=== PATIENT | female | born 1965 | race Caucasian/White ===

== ENCOUNTER → 2018-06-10 13:30 | Outpatient (CLI) | payer BC, MEDICARE, MEDICAID, SELFPAY ==
[2015-10-09 11:38] VITALS: BMI 41.2
[2018-06-10 14:41] LABS: Hematocrit 41.6 % (37-47); Mean Corp Hgb Conc 33.7 g/gl (32-36); Mean Corpuscular Hgb 29.9 pg (27.0-32.0); Mean Corpuscular Volume 88.7 fL (81-99); Mean Platelet Vol. 11.5 fl (6.2-12.0); Platelet Count 286 K/mm3 (150-450); RBC Distribution Width CV 13.3 % (11.6-14.6); RBC Distribution Width SD 42.5 fl (35.1-43.9); Red Blood Count 4.69 M/mm3 (4.2-5.4); White Blood Count 7.2 K/mm3 (4.4-11.0)
[2018-06-10 14:43] LABS: Scan Indicated on CBC? Y/N NO
[2018-06-10 15:11] LABS: Vitamin B12 671 pg/mL (211-911)
[2018-06-10 15:44] LABS: ALB/GLOB Ratio 1.1 RATIO (0.9-2.4); AST(SGOT) 40 U/L (15-37); Alanine Aminotransfer ALT/SGPT 53 U/L (13-56); Alkaline Phosphatase 98 U/L (45-117); Anion Gap 8 (5-15); BUN 10 mg/dL (7-18); BUN/Creat Ratio 21.1 RATIO (10-20); Chloride 107 mmol/L (98-107); Creatinine, Serum 0.47 mg/dL (0.55-1.02); EST Glomerular Filtration Rate 146 mL/min (>60); Est Glom Filt Rate - Afr Amer 176 mL/min (>60); Ferritin 240 ng/mL (8-252); Globulin 3.7 g/dL (2.2-4.2); Glucose 75 mg/dL (74-106); Iron 102 ug/dL (50-170); Magnesium 2.1 mg/dL (1.6-2.6); Potassium 3.8 mmol/L (3.5-5.1); Protein, Total 7.7 g/dL (6.4-8.2); Sodium Level 140 mmol/L (136-145)
[2018-06-13 10:56] LABS: Zinc, Plasma or Serum 84 ug/dL (56-134)
== END ==
PROVIDERS: Referring Provider Surgery; Visit Provider Surgery
DX: E11.9 Type 2 diabetes mellitus without complications (principal); I10 Essential (primary) hypertension; E78.2 Mixed hyperlipidemia; K90.9 Intestinal malabsorption, unspecified; E61.7 Deficiency of multiple nutrient elements; R53.83 Other fatigue; E66.01 Morbid (severe) obesity due to excess calories
CPT/HCPCS: 36415; 80053; 82607; 82728; 82746; 83540; 83735; 84630; 85027

== ENCOUNTER 2024-05-20 15:06 | Emergency (ER) | payer MEDICARE, OTHER, MEDICAID, SELFPAY ==
[2024-05-20 15:07] VITALS: BP 133/70; PULSE 53; RESP 14; TEMP 35.6; O2SAT 98; BMI 32.1
--- NOTE | 2024-05-20 15:48 | EDS_ITS ---
HPI History of Present Illness Chief Complaint: Nausea/Vomiting Detail of Chief Complaint: Abdominal pain lateral aspect of lower horizontal incision with bulging & N Informant: patient Onset/Context/Timing Onset: Weeks (If not months) Context: - (Intermittent nausea and vomiting, bulging for some time and intermittent pain) Timing: - (Previously documented) Quality: Severe pain Location: Lateral aspect of horizontal incision for gastric bariatric surgery Current Severity: Mild Maximum Severity: Severe Worsened by: Anytime when she eats. Also when she has nausea and vomiting Relieved by: Nothing Associated Symptoms Associated Symptoms: No constipation. Patient is still flagellated. Narrative Narrative: Patient is a 59-year-old female. She has history of type 2 diabetes, she is on metformin. She has had multiple abdominal surgeries. She has had repair for multiple hernias. She reports vomiting twice yesterday and twice today. She denies coffee-ground emesis or hematemesis. Her last normal bowel movement was yesterday. She is still flagellated. She has had this bulge for some time. Her doctors is even aware of it. She denies black or maroon-colored stool. She denies dysuria, frequency, urgency or hematuria. She denies blurred vision. She denies thirst or dry mouth. Denies orthostatic symptoms. As I was walking out of the room after my H&P she informed me again that the pain is severe. Prior similar symptoms: Yes Recent Illness/Hospitalization: No PFSH PFSH Home Medications ?Medication ?Instructions ?Recorded ?Last Taken ?Type metformin 1,000 mg 24 hr 1,000 mg PO DAILY 10/08/15 0 10/08/15 History tablet,extended release (gastric reten.) Allergy/AdvReac Type Severity Reaction Status Date / Time diphenhydramine (From Allergy Anaphylaxis Verified 05/20/24 15:06 Benadryl) morphine Allergy Anaphylaxis Verified 05/20/24 15:06 vancomycin Allergy Anaphylaxis Verified 05/20/24 15:06 Social History (Updated 05/20/24 @ 15:[address] Kvng Pelaez MD) household members: none Smoking Status: Never smoker ROS ROS ED Constitutional Constitutional ED: Denies chills, fever(s), subjective, sweats or weight loss Eyes Eyes: Denies blurry vision or change in vision Cardiovascular Cardiovascular: Denies chest pain or palpitations Respiratory/Chest Respiratory/Chest: Denies cough, dyspnea or dyspnea on exertion Gastrointestinal Gastrointestinal: Reports abdominal pain, nausea and vomiting; Denies constipation, diarrhea or melena Genitourinary Genitourinary ED: Denies dysuria, hematuria or urinary frequency Musculoskeletal Musculoskeletal: Denies arthralgias, back pain or myalgias Integumentary Denies rash Hematologic/Lymphatic Hematologic/Lymphatic: Reports systems reviewed and no addt'l complaints, except as documented EXAM Physical Exam Const Vital Signs: 05/20/24 15:07 05/20/24 17:06 Temperature 96.1 F L Temperature Source Temporal Pulse Rate 53 L 62 Respiratory Rate 14 16 Blood Pressure 133/70 H 136/74 H Blood Pressure Mean 91 94 Pulse Ox 98 99 Oxygen Delivery Method Room Air Positive well nourished and well developed Constitutional Narrative: BMI 32.1. General Appearance ED: well developed and pallor; Negative for cyanotic, diaphoretic or NAD HEENT Reports dry mucous membranes Mouth ED: Yes dry mucous membranes Mouth: dry mucous membranes Eyes PERRL and EOMs intact bilaterally General Eye ED: Negative for pale conjunctiva or scleral icterus Neck no lymphadenopathy, supple and no JVD Resp normal respiratory effort and clear to auscultation bilaterally Cardio regular rate, regular rhythm, S1 normal heart sound, S2 normal heart sound and no murmurs GI GI Narrative: Patient has multiple well-healed scars. When patient Valsalvas on demand there is a bulge noted lateral horizontal inferior incision. There is a small defect. The hernia is reducible. There is no inflammation in the proximity of this bulge. There is no induration, erythema or warmth. There is no discoloration to suggest cyanosis. Auscultation: hypoactive bowel sounds Palpation: soft and tender other (Lateral inferior horizontal incision with small ventral hernia noted.) Back/Spine no CVA tenderness Extremity normal to inspection Neuro oriented x3 and CN's II-XII intact bilaterally Sensorium / Orientation: alert Psych mental status grossly normal Skin no rashes or lesions noted, no wounds and skin turgor normal General Skin Exam: elasticity normal and pallor; Negative for jaundice MDM MDM MDM Narrative Medical decision making narrative: Patient's nausea and vomiting may be due to gastroparesis and she has type 2 diabetes. The nausea vomiting be due to a viral infection. Based on history and physical exam I doubt this is due to obstruction from her reducible ventral hernia. Will obtain CBC to assess white count differential. Electrolyte panel assess glucose, CO2 anion gap and renal function since she has been vomiting states she cannot eat or drink any for the last 2 days. She was treated with Zofran for her nausea. Abdominal series was obtained to see if there is an abnormal bowel gas pattern. If any of her labs come back significantly abnormal may consider advanced imaging i.e. CT of the abdomen and pelvis. History & Record Review Additional record(s) reviewed:: Prior inpatient record (2016 for change in vision. Discharge summary authored by Dr. Tena.) Lab Data Attestation: I reviewed the patient's lab results. Lab results narrative: CBC is unremarkable. Electrolyte panel is unremarkable. Labs: Laboratory Results - last 24 hr 05/20/24 16:03 WBC 6.1 RBC 4.35 Hgb 12.8 Hct 37.6 MCV 86.4 MCH 29.4 MCHC 34.0 RDW Std Deviation 40.4 RDW Coeff of Bobby 12.9 Plt Count 295 MPV 10.5 Immature Gran % (Auto) 0.200 Neut % (Auto) 54.9 Lymph % (Auto) 35.2 [place] % (Auto) 6.1 Eos % (Auto) 2.8 Baso % (Auto) 0.8 Absolute Neuts (auto) 3.4 Absolute Lymphs (auto) 2.15 Nucleated RBC % 0 Sodium 139 Potassium 4.1 Chloride 107 Carbon Dioxide 20.5 L Anion Gap 12 BUN 10 Creatinine 0.56 L Estim Creat Clear Calc 105.77 Est GFR (MDRD) Non-Af 105 BUN/Creatinine Ratio 17.3 Glucose 93 Calcium 8.7 Radiography Chest X-Ray - ED: Read by ED Physician (Three-view abdominal series was obtained. The chest portion is negative with normal cardiac silhouette size. Lung parenchyma normal. Hilum is normal. Osseous trucks reveal some chronic changes. Patient has knots of a gas pattern on the abdominal portion. There is no evidence of pneumoperitoneu) Diagnostic Testing: Clinical Impression(s) from Imaging Studies Acute Abdomen Series 05/20/24 16:15 IMPRESSION: NO ACUTE FINDINGS Reading Location: [facility] Management Discussion w/another healthcare provider: Radiologist (Radiologist contacted me because of confusion of what was written regarding history of surgery. She was told the surgery was remote. This is a known hernia. My opinion is reducible but because she has had so much pain reports nausea and vomiting 1 to examine t he bowel gas pattern. She agreed chris) Treatment and Re-Evaluation :: Patient was informed at 181 that her workup is unremarkable. She be discharged to home. She understands. She had no questions. Discharge Plan Triage Chief Complaint: Nausea/Vomiting ED Provider: Kvng Pelaez Dx/Rx/DC Orders Clinical Impression: Incisional hernia, without obstruction or gangrene, Type 2 diabetes mellitus, Nausea & vomiting, Sinus bradycardia, Elevated blood-pressure reading without diagnosis of hypertension Instructions: ED Hernia (Adult), ED Hypertension, To Be Confirmed Prescriptions: No Action metformin 1,000 MG tablet,ER jane.retention 24 hr 1,000 mg PO DAILY Patient Comments: diabetes Primary Care Provider: Ruslan Gutierrez Referrals: Ruslan Gutierrez, [Primary Care Provider] - 1-2 Weeks Care Physician,No Primary [Non-Staff] - Activity Restrictions/Additional Instructions: Your blood pressure readings have been elevated. You need to follow-up with your doctor to have your blood pressure rechecked in 1 to 2 weeks. Print Language: Citizen [place] Disposition Disposition: Home, Self Care
[2024-05-20] MEDS: Ondansetron 4 MG/2 ML Vial IV (16:13)
--- NOTE | 2024-05-20 16:15 | RAD_ITS ---
PROCEDURE: ACUTE ABDOMEN INC CHEST 05/20/2024 REASON FOR EXAM: RIGHT LOWER QUADRANT PAIN DUE TO INCISIONAL HERNIA TECHNIQUE: Single AP view of the chest with supine and upright views of the abdomen. COMPARISON: None FINDINGS: No focal consolidation. No pneumothorax. Heart size is normal. Lower cervical spine fusion hardware. Nonobstructive bowel gas pattern. No evidence of free air. Status post cholecystectomy. Degenerative changes of the lumbar spine. The bilateral sacroiliac joints are grossly unremarkable. RAD/Acute Abdomen Inc Chest IMPRESSION: NO ACUTE FINDINGS Reading Location: [facility]
[2024-05-20 16:29] LABS: Absolute Lymphocyte Count 2.15 X10^3/uL (0.83-4.51); Absolute Neutrophil Count 3.4 X10^3/uL (2.0-7.7); Basophil# 0.05 X10^3/uL; Basophil% 0.8 % (0-1); Eosinophil# 0.17 X10^3/uL; Eosinophils% 2.8 % (0-5); Hematocrit 37.6 % (37-47); Hemoglobin 12.8 g/dL (12.0-15.0); Lymphocyte # 2.15 X10^3/ul (0.83-4.51); Lymphocyte % 35.2 % (19-41); Mean Corpuscular Hgb 29.4 pg (27.0-32.0); Mean Corpuscular Volume 86.4 fL (81-99); Mean Platelet Vol. 10.5 fl (6.2-12.0); Monocyte# 0.37 X10^3/uL; Monocyte% 6.1 % (0-10); NRBC Flagged by Analyzer 0 % (0-5); Neutrophil # 3.36 X10^3/uL (2.7-7.7); Neutrophil % 54.9 % (47-70); Platelet Count 295 K/mm3 (150-450); RBC Distribution Width CV 12.9 % (11.6-14.6); RBC Distribution Width SD 40.4 fl (35.1-43.9); Red Blood Count 4.35 M/mm3 (4.2-5.4); White Blood Count 6.1 K/mm3 (4.4-11.0)
[2024-05-20 16:33] LABS: Anion Gap 12 (5-15); BUN 10 mg/dL (4-19); BUN/Creat Ratio 17.3 RATIO (10-20); Calcium,Total 8.7 mg/dL (7.6-11.0); Carbon Dioxide 20.5 mmol/L (21.0-32.0); Chloride 107 mmol/L (98-108); Creatinine, Serum 0.56 mg/dL (0.70-1.20); EST Glomerular Filtration Rate 105 (>60); Estimated Creatinine Clearance 105.77 ml/min (50-250); Glucose 93 mg/dL (70-99); Potassium 4.1 mmol/L (3.3-5.1); Sodium Level 139 mmol/L (133-145)
[2024-05-20 17:06] VITALS: BP 136/74; PULSE 62; RESP 16; O2SAT 99
[2024-05-20 18:22] VITALS: BP 136/74; PULSE 62; RESP 16; TEMP 36.8; O2SAT 99
== END 2024-05-20 18:29 | disposition home or self-care (01) ==
PROVIDERS: Emergency Provider Emergency Medicine; PCP Student in an Organized Health Care Education/Training Program; Visit Provider Emergency Medicine
DX: K43.2 Incisional hernia without obstruction or gangrene (principal); E11.9 Type 2 diabetes mellitus without complications; R11.2 Nausea with vomiting, unspecified; R00.1 Bradycardia, unspecified; R03.0 Elevated blood-pressure reading, without diagnosis of hypertension
CPT/HCPCS: 74022; 80048; 85025; 96374; 99283; A4216; J2405

== ENCOUNTER 2024-06-05 09:33 | Emergency (ER) | payer MEDICARE, MEDICAID, SELFPAY ==
[2024-06-05 09:34] VITALS: BP 146/72; PULSE 68; RESP 16; TEMP 36.7; O2SAT 96; BMI 31.8
--- NOTE | 2024-06-05 10:05 | CT_ITS ---
PROCEDURE: ABDOMEN/PELVIS W IV CONT ONLY 06/05/2024 REASON FOR EXAM: ABDOMINAL PAIN, CONSTIPATION Surgical history of spinal fusion and hernia repair. TECHNIQUE: Abdomen and pelvis CT with intravenous contrast. Coronal and Sagittal reconstruction series were provided. PATIENT PREPARATION: Per protocol ORAL CONTRAST TYPE: None. AMOUNT: mL CONTRAST: Isovue 370 VOLUME: 100 mL IV One or more dose reduction techniques were used (e.g., Automated exposure control, adjustment of the mA and/or kV according to patient size, use of iterative reconstruction technique. RADIATION DOSE SUMMARY: CTDlvol: 16.55 mGy DLP: 991.11 mGycm COMPARISON: None. FINDINGS: Lung bases: Lung bases are clear. No pleural effusions. Postsurgical changes in the stomach Cholecystectomy clips are seen in the gallbladder fossa. The liver, spleen, pancreas, adrenals and kidneys are unremarkable. Bladder: Unremarkable Reproductive Organs: Post hysterectomy Bowel: Moderate volume of feces throughout the colon. Appendix: No evidence of appendicitis. Lymph nodes: No lymphadenopathy. Vasculature: Mild calcific plaque burden in the abdominal aorta Peritoneum / Retroperitoneum: No free air. No free fluid. Bones: Unremarkable. CT/Abdomen/Pelvis W IV Cont ONLY IMPRESSION: UNREMARKABLE CONTRAST-ENHANCED CT OF THE ABDOMEN AND PELVIS Moderate volume of feces throughout colon Reading Location: [facility]
--- NOTE | 2024-06-05 10:09 | EDS_ITS ---
HPI <SINCERE Chase - Last Filed: 06/05/24 14:17> HPI - GI History of Present Illness Chief Complaint: Abd Pain Narrative Narrative: Patient presenting today with abdominal pain she has had over the past week. She reports swelling to the right lower quadrant of her abdomen and pain that radiates across her mid abdomen. She has not had a bowel movement in about a week which is unusual for her. She reports that she usually has a bowel movement every day. She is passing little gas. She denies any history of bowel obstruction. Previous abdominal surgeries includes several hernia repairs. She reports associated nausea but denies fevers, chills, vomiting, and urinary symptoms. PFS <SINCERE Chase - Last Filed: 06/05/24 14:17> [facility] Medical History Depression Anxiety Hypertension Hyperthyroidism Medical History no medical history Home Medications ?Medication ?Instructions ?Recorded ?Last Taken ?Type metformin 1,000 mg 24 hr 1,000 mg PO DAILY 10/08/15 0 10/08/15 History tablet,extended release (gastric reten.) dicyclomine 20 mg tablet 20 mg PO 4X/DAY PRN PRN abdo tasia 06/05/24 Unknown History pain hydroxyzine HCl 25 mg tablet 25 mg PO 4X/DAY 06/05/24 Unknown History levetiracetam 500 mg tablet 500 mg PO BID 06/05/24 Unk nown History levothyroxine 112 mcg tablet 112 mcg PO DAILY 06/05/24 Unknown History losartan 25 mg tablet 25 mg PO DAILY 06/05/24 Unkn own History olanzapine 10 mg tablet 10 mg PO DAILY 06/05/24 Unkn own History polyethylene glycol 3350 17 17 g PO DAILY #119 grams 0 06/05/24 Unknown Rx gram/dose oral powder (Miralax) ramelteon 8 mg tablet 8 mg PO QHS 06/05/24 Unknown History rosuvastatin 20 mg tablet 20 mg PO QHS 06/05/24 Unknow n History sennosides 8.6 mg capsule (senna) 8.6 mg PO DAILY PRN constipation 06/05/24 Unknown Rx #14 caps sertraline 100 mg tablet 150 mg PO 06/05/24 Unknown H istory zolpidem 5 mg tablet 5 mg PO QHS PRN PRN insomnia 06/05/24 Unknown History Allergy/AdvReac Type Severity Reaction Status Date / Time diphenhydramine (From Allergy Anaphylaxis Verified 05/20/24 15:06 Benadryl) morphine Allergy Anaphylaxis Verified 05/20/24 15:06 vancomycin Allergy Anaphylaxis Verified 05/20/24 15:06 Family History no significant family his Surgical History H/O spinal fusion H/O hernia repair Surgical History no surgical history Social History household members: none Smoking Status: Never smoker ROS <SINCERE Chase - Last Filed: 06/05/24 14:17> ROS ED Constitutional Constitutional ED: Denies chills or fever(s) Cardiovascular Cardiovascular: Denies chest pain Respiratory/Chest Respiratory/Chest: Denies dyspnea Gastrointestinal Gastrointestinal: Reports abdominal pain, constipation and nausea; Denies diarrhea or vomiting Genitourinary Genitourinary ED: Denies dysuria, hematuria or urinary urgency Musculoskeletal Musculoskeletal: Denies arthralgias or myalgias Integumentary Denies rash Neurologic Neurologic: Denies weakness EXAM <SINCERE Chase - Last Filed: 06/05/24 14:17> Physical Exam Const Vital Signs: 06/05/24 09:34 06/05/24 11:34 06/05/24 13:00 Temperature 98.1 F Temperature Source Oral Pulse Rate 68 70 63 Respiratory Rate 16 18 18 Blood Pressure 146/72 H 120/75 131/71 H Blood Pressure Mean 96 90 86 Pulse Ox 96 98 95 Oxygen Delivery Method Room Air Positive well nourished, well developed and no apparent distress General Appearance ED: well developed HEENT Reports normocephalic and head/scalp atraumatic Mouth ED: Yes moist mucous membranes normal Eyes PERRL and EOMs intact bilaterally Neck full ROM and supple Chest Wall inspection of chest normal Resp normal respiratory effort and clear to auscultation bilaterally Cardio regular rate and regular rhythm GI soft to palpation, non-distended and no masses GI Narrative: Several abdominal healed incisions. Diffuse tenderness across abdomen is pronounced in the right lower quadrant, no rigidity or guarding. Back/Spine normal ROM and normal to inspection Extremity normal to inspection and full ROM Neuro oriented x3, CN's II-XII intact bilaterally, moves all extremities, no focal motor deficits and no sensory deficits noted Sensorium / Orientation: awake and alert Psych mental status grossly normal and thought process normal Skin no rashes or lesions noted and no wounds <Dr. Joseph Greene DO - Last Filed: 06/05/24 17:03> Physical Exam Const Vital Signs: 06/05/24 09:34 06/05/24 11:34 06/05/24 13:00 Temperature 98.1 F Temperature Source Oral Pulse Rate 68 70 63 Respiratory Rate 16 18 18 Blood Pressure 146/72 H 120/75 131/71 H Blood Pressure Mean 96 90 86 Pulse Ox 96 98 95 Oxygen Delivery Method Room Air MDM <SINCERE Chase - Last Filed: 06/05/24 14:17> [facility] MDM Narrative Medical decision making narrative: Patient presenting with pain and swelling to the right lower quadrant of her abdomen that radiates across her mid abdomen. She also endorses constipation. She was just seen here at the end of April for similar symptoms, she had x-rays performed that were negative for any acute findings. She had a reducible small ventral hernia at that time. Abdominal workup obtained to assess for bowel obstruction, appendicitis, hernia, mass, and other etiology. CBC obtained to assess for leukocytosis and is unremarkable, CMP obtained to assess for kidney dysfunction, electrolyte derangement, and hepatobiliary etiology and is negative. Lipase WNL. UA negative for UTI. Patient given IV fluids and Toradol for pain. CT scan of the abdomen and pelvis shows constipation with no other acute findings. She has not tried taking any medication for her constipation as of yet. I wrote her prescription for senna and MiraLAX and recommended she increase the fiber in her diet. I recommended she have close follow-up with her PCP, return instructions discussed and patient discharged home in stable condition. Lab Data Attestation: I reviewed the patient's lab results. Labs: Laboratory Results - last 24 hr 06/05/24 06/05/24 09:48 11:48 WBC 6.9 RBC 4.19 L Hgb 12.5 Hct 36.6 L MCV 87.4 MCH 29.8 MCHC 34.2 RDW Std Deviation 41.6 RDW Coeff of Bobby 13.0 Plt Count 260 MPV 10.1 Immature Gran % (Auto) 0.300 Neut % (Auto) 49.7 Lymph % (Auto) 37.8 [place] % (Auto) 8.2 Eos % (Auto) 3.3 Baso % (Auto) 0.7 Absolute Neuts (auto) 3.4 Absolute Lymphs (auto) 2.62 Nucleated RBC % 0 Sodium 141 Potassium 3.3 Chloride 110 H Carbon Dioxide 17.6 L Anion Gap 13 BUN 14 Creatinine 0.56 L Estim Creat Clear Calc 102.63 Est GFR (MDRD) Non-Af 105 BUN/Creatinine Ratio 25.7 H Glucose 102 H Calcium 8.6 Total Bilirubin 0.28 AST 35 H ALT 29 Alkaline Phosphatase 110 H Total Protein 6.6 Albumin 4.2 Globulin 2.4 Albumin/Globulin Ratio 1.7 Lipase 34 Urine Color Yellow Urine Clarity Clear Urine pH 5.0 Ur Specific [place] 1.010 Urine Protein 30 H Urine Glucose (UA) Normal Urine Ketones Negative Urine Occult Blood 50 H Urine Nitrite Negative Urine Bilirubin Negative Urine Urobilinogen 1 H Ur Leukocyte Esterase 25 H Urine RBC 0-5 SEEN Urine WBC 0-5 SEEN Ur Squamous Epith Cells 0-5 SEEN Urine Bacteria 0 SEEN Urine Mucus 0 SEEN Radiography Diagnostic Testing: Clinical Impression(s) from Imaging Studies Abdomen/Pelvis CT 06/05/24 10:05 IMPRESSION: UNREMARKABLE CONTRAST-ENHANCED CT OF THE ABDOMEN AND PELVIS Moderate volume of feces throughout colon Reading Location: [facility] <Dr. Joseph Greene, DO - Last Filed: 06/05/24 17:03> [facility] Narrative Medical decision making narrative: Patient presenting with pain and swelling to the right lower quadrant of her abdomen that radiates across her mid abdomen. She also endorses constipation. She was just seen here at the end of April for similar symptoms, she had x-rays performed that were negative for any acute findings. She had a reducible small ventral hernia at that time. Abdominal workup obtained to assess for bowel obstruction, appendicitis, hernia, mass, and other etiology. CBC obtained to assess for leukocytosis and is unremarkable, CMP obtained to assess for kidney dysfunction, electrolyte derangement, and hepatobiliary etiology and is negative. Lipase WNL. UA negative for UTI. Patient given IV fluids and Toradol for pain. CT scan of the abdomen and pelvis shows constipation with no other acute findings. She has not tried taking any medication for her constipation as of yet. I wrote her prescription for senna and MiraLAX and recommended she increase the fiber in her diet. I recommended she have close follow-up with her PCP, return instructions discussed and patient discharged home in stable condition. ED attending note: I evaluated the patient in conjunction with the MANDA. I agree with his/her statements and above findings. I have personally performed a face to face assessment of the patient and have reviewed the MANDA Note. I performed a substantive portion of the visit including all aspects of the following. I personally saw the patient performed chart review, physical exam, reviewed labs, imaging (if obtained), and formulated a treatment and management plan. History as above Exam with diffuse abdominal distention but no peritoneal signs. MDM/plan: Will obtain labs and images. Will perform a repeat abdominal exam. Will decide final disposition based on patient's labs images and repeat abdominal exam. This note was generated with [employer] dictation software. It may contain incorrect words, spelling, and punctuation that were not noted in review of the chart prio r to signing. Lab Data Labs: Laboratory Results - last 24 hr 06/05/24 06/05/24 09:48 11:48 WBC 6.9 RBC 4.19 L Hgb 12.5 Hct 36.6 L MCV 87.4 MCH 29.8 MCHC 34.2 RDW Std Deviation 41.6 RDW Coeff of Bobby 13.0 Plt Count 260 MPV 10.1 Immature Gran % (Auto) 0.300 Neut % (Auto) 49.7 Lymph % (Auto) 37.8 [place] % (Auto) 8.2 Eos % (Auto) 3.3 Baso % (Auto) 0.7 Absolute Neuts (auto) 3.4 Absolute Lymphs (auto) 2.62 Nucleated RBC % 0 Sodium 141 Potassium 3.3 Chloride 110 H Carbon Dioxide 17.6 L Anion Gap 13 BUN 14 Creatinine 0.56 L Estim Creat Clear Calc 102.63 Est GFR (MDRD) Non-Af 105 BUN/Creatinine Ratio 25.7 H Glucose 102 H Calcium 8.6 Total Bilirubin 0.28 AST 35 H ALT 29 Alkaline Phosphatase 110 H Total Protein 6.6 Albumin 4.2 Globulin 2.4 Albumin/Globulin Ratio 1.7 Lipase 34 Urine Color Yellow Urine Clarity Clear Urine pH 5.0 Ur Specific [place] 1.010 Urine Protein 30 H Urine Glucose (UA) Normal Urine Ketones Negative Urine Occult Blood 50 H Urine Nitrite Negative Urine Bilirubin Negative Urine Urobilinogen 1 H Ur Leukocyte Esterase 25 H Urine RBC 0-5 SEEN Urine WBC 0-5 SEEN Ur Squamous Epith Cells 0-5 SEEN Urine Bacteria 0 SEEN Urine Mucus 0 SEEN Radiography Diagnostic Testing: Clinical Impression(s) from Imaging Studies Abdomen/Pelvis CT 06/05/24 10:05 IMPRESSION: UNREMARKABLE CONTRAST-ENHANCED CT OF THE ABDOMEN AND PELVIS Moderate volume of feces throughout colon Reading Location: [facility] Discharge Plan Triage Chief Complaint: Abd Pain ED Midlevel Provider: Naya Bartlett ED Provider: Joseph Greene Dx/Rx/DC Orders Clinical Impression: Abdominal pain, Constipation Instructions: Abdominal Pain, ED Constipation (Adult) Prescriptions: New polyethylene glycol 3350 [Miralax] 17 gram/dose powder 17 g PO DAILY Qty: 119 0RF senna 8.6 mg capsule 8.6 mg PO DAILY PRN (Reason: constipation) Qty: 14 0RF No Action metformin 1,000 MG tablet,ER jane.retention 24 hr 1,000 mg PO DAILY Patient Comments: diabetes levetiracetam 500 mg tablet 500 mg PO BID sertraline 100 mg tablet 150 mg PO olanzapine 10 mg tablet 10 mg PO DAILY dicyclomine 20 mg tablet 20 mg PO 4X/DAY PRN PRN (Reason: abdominal pain) losartan 25 mg tablet 25 mg PO DAILY hydroxyzine HCl 25 mg tablet 25 mg PO 4X/DAY zolpidem 5 mg tablet 5 mg PO QHS PRN PRN (Reason: insomnia) levothyroxine 112 mcg tablet 112 mcg PO DAILY rosuvastatin 20 mg tablet 20 mg PO QHS ramelteon 8 mg tablet 8 mg PO QHS Primary Care Provider: Ruslan Gutierrez Referrals: Ruslan Gutierrez DO [Primary Care Provider] - 5-7 Days Activity Restrictions/Additional Instructions: Begin taking both senna and MiraLAX for your constipation. Follow-up with your PCP and return for any other concerns. Print Language: Tristanian Disposition Disposition: Home, Self Care Discharge Date/Time: 06/05/24 13:09
[2024-06-05] MEDS: 0.9% Normal Saline (1000mL) 1,000 ML 999 ML IV (10:13)
[2024-06-05] MEDS: Ondansetron 4 MG/2 ML Vial IV (10:14)
[2024-06-05] MEDS: Ketorolac 15 MG/ML Vial IV ×2 (10:15→12:40)
[2024-06-05 10:17] LABS: Absolute Lymphocyte Count 2.62 X10^3/uL (0.83-4.51); Absolute Neutrophil Count 3.4 X10^3/uL (2.0-7.7); Basophil# 0.05 X10^3/uL; Basophil% 0.7 % (0-1); Eosinophil# 0.23 X10^3/uL; Eosinophils% 3.3 % (0-5); Hematocrit 36.6 % (37-47); Hemoglobin 12.5 g/dL (12.0-15.0); Lymphocyte # 2.62 X10^3/ul (0.83-4.51); Lymphocyte % 37.8 % (19-41); Mean Corp Hgb Conc 34.2 g/dL (32-36); Mean Corpuscular Hgb 29.8 pg (27.0-32.0); Mean Corpuscular Volume 87.4 fL (81-99); Mean Platelet Vol. 10.1 fl (6.2-12.0); Monocyte# 0.57 X10^3/uL; Monocyte% 8.2 % (0-10); NRBC Flagged by Analyzer 0 % (0-5); Neutrophil # 3.44 X10^3/uL (2.7-7.7); Neutrophil % 49.7 % (47-70); Platelet Count 260 K/mm3 (150-450); RBC Distribution Width SD 41.6 fl (35.1-43.9); Red Blood Count 4.19 M/mm3 (4.2-5.4); White Blood Count 6.9 K/mm3 (4.4-11.0)
[2024-06-05 10:45] LABS: ALB/GLOB Ratio 1.7 RATIO (0.9-2.4); AST(SGOT) 35 U/L (<=31); Alanine Aminotransfer ALT/SGPT 29 U/L (<=34); Albumin, Serum 4.2 g/dL (3.5-5.0); Alkaline Phosphatase 110 U/L (35-104); Anion Gap 13 (5-15); BUN 14 mg/dL (4-19); BUN/Creat Ratio 25.7 RATIO (10-20); Calcium,Total 8.6 mg/dL (7.6-11.0); Carbon Dioxide 17.6 mmol/L (21.0-32.0); Chloride 110 mmol/L (98-108); Creatinine, Serum 0.56 mg/dL (0.70-1.20); EST Glomerular Filtration Rate 105 (>60); Estimated Creatinine Clearance 102.63 ml/min (50-250); Globulin 2.4 g/dL (2.2-4.2); Glucose 102 mg/dL (70-99); Lipase 34 U/L (13-75); Potassium 3.3 mmol/L (3.3-5.1); Protein, Total 6.6 g/dL (5.9-8.4); Sodium Level 141 mmol/L (133-145); Total Bilirubin 0.28 mg/dL (0.00-1.30)
[2024-06-05 11:34] VITALS: BP 120/75; PULSE 70; RESP 18; O2SAT 98
[2024-06-05] MEDS: 0.9% Normal Saline (250mL Bag) 250 ML 999 ML IV (11:44)
[2024-06-05 11:52] LABS: Bacteria 0 SEEN /hpf (None Seen); Mucous, Urine 0 SEEN /hpf (<or=2+)
[2024-06-05 11:54] LABS: Color, Urine Yellow (Yellow); Glucose, Dipstick Normal (Normal); Ketone-Dipstick Negative (Negative); Leukocyte Esterase-Dipstick 25 /ul (Negative); Nitrite-Dipstick Negative (Negative); Occult Blood-Urine 50 /ul (Negative); Protein-Dipstick 30 mg/dl (Negative); Urine Bilirubin Dipstick Negative (Negative); Urine Clarity Clear (Clear); Urine Urobilinogen 1 mg/dl (Normal)
[2024-06-05 12:49] LABS: Red Blood Cells-Urine 0-5 SEEN /hpf (0-5); White Blood Cells 0-5 SEEN /hpf (0-5)
[2024-06-05 12:50] LABS: Squamous Epithelial Cells - UA 0-5 SEEN /hpf (5-10)
[2024-06-05 13:00] VITALS: BP 131/71; PULSE 63; RESP 18; O2SAT 95
== END 2024-06-05 13:09 | disposition home or self-care (01) ==
PROVIDERS: Physician Assistant; Emergency Provider Emergency Medicine; PCP Student in an Organized Health Care Education/Training Program; Visit Provider Emergency Medicine
DX: K59.00 Constipation, unspecified (principal); I10 Essential (primary) hypertension; Z79.899 Other long term (current) drug therapy
CPT/HCPCS: 74177; 80053; 81001; 83690; 85025; 96361; 96374; 96375; 96376; 99283; Q9967; A4216; J2405

== ENCOUNTER 2024-08-17 16:51 | Emergency (ER) | payer MEDICARE, MEDICAID, SELFPAY ==
[2024-08-17 16:54] VITALS: BP 91/37; PULSE 55; RESP 16; TEMP 36.9; O2SAT 95; BMI 32.3
--- NOTE | 2024-08-17 17:14 | EKG12_ITS ---
Test Reason : syncope Blood Pressure : */* mmHG Vent. Rate : 48 BPM Atrial Rate : 48 BPM P-R Int : 188 ms QRS Dur : 82 ms QT Int : 490 ms P-R-T Axes : -8 -2 16 degrees QTcB Int : 437 ms Sinus bradycardia Otherwise normal ECG Confirmed by DIANE NORWOOD, MARSHALL ([id number]), editorial manager MATT ROJAS ([id number]) on 08/19/2024 1:02:16 PM Referred By: Confirmed By: MARSHALL CONTRERAS MD
[2024-08-17] MEDS: 0.9% Normal Saline (1000mL) 1,000 ML 1000 ML IV ×2 (17:36→19:19)
[2024-08-17 17:57] LABS: Absolute Lymphocyte Count 2.19 X10^3/uL (0.83-4.51); Absolute Neutrophil Count 5.7 X10^3/uL (2.0-7.7); Basophil# 0.05 X10^3/uL; Basophil% 0.6 % (0-1); Eosinophils% 2.3 % (0-5); Hematocrit 36.8 % (37-47); Hemoglobin 12.8 g/dL (12.0-15.0); Lymphocyte # 2.19 X10^3/ul (0.83-4.51); Lymphocyte % 24.8 % (19-41); Mean Corp Hgb Conc 34.8 g/dL (32-36); Mean Corpuscular Hgb 30.3 pg (27.0-32.0); Mean Platelet Vol. 11.2 fl (6.2-12.0); Monocyte# 0.63 X10^3/uL; Monocyte% 7.1 % (0-10); NRBC Flagged by Analyzer 0 % (0-5); Neutrophil # 5.73 X10^3/uL (2.7-7.7); Platelet Count 291 K/mm3 (150-450); RBC Distribution Width CV 12.9 % (11.6-14.6); RBC Distribution Width SD 40.9 fl (35.1-43.9); Red Blood Count 4.23 M/mm3 (4.2-5.4); White Blood Count 8.8 K/mm3 (4.4-11.0)
[2024-08-17 18:22] LABS: ALB/GLOB Ratio 1.7 RATIO (0.9-2.4); AST(SGOT) 39 U/L (<=31); Alanine Aminotransfer ALT/SGPT 30 U/L (<=34); Alkaline Phosphatase 120 U/L (35-104); Anion Gap 9 (5-15); BUN 11 mg/dL (4-19); BUN/Creat Ratio 14.2 RATIO (10-20); Calcium,Total 8.3 mg/dL (7.6-11.0); Carbon Dioxide 23.2 mmol/L (21.0-32.0); Chloride 106 mmol/L (98-108); Creatinine, Serum 0.75 mg/dL (0.70-1.20); EST Glomerular Filtration Rate 91 (>60); Estimated Creatinine Clearance 79.28 ml/min (50-250); Globulin 2.4 g/dL (2.2-4.2); Glucose 77 mg/dL (70-99); Potassium 4.7 mmol/L (3.3-5.1); Protein, Total 6.5 g/dL (5.9-8.4); Sodium Level 138 mmol/L (133-145); Total Bilirubin 0.35 mg/dL (0.00-1.30)
[2024-08-17 18:23] LABS: Lactic Acid < 1.0 mmol/L (0.0-2.0)
[2024-08-17 18:52] VITALS: BP 113/59; PULSE 48; RESP 16; O2SAT 95
--- NOTE | 2024-08-17 18:52 | EX.ED.DYSGE1 ---
HPI History of Present Illness Chief Complaint: Syncope Detail of Chief Complaint: Lightheaded and falls every time she stands up Informant: patient Onset/Context/Timing Onset: Weeks (Past 1 week has fallen 18 times. Triage documents this is been going on for 4 weeks) Context: Sudden Onset Timing: Intermittent Quality: If I stand up I become lightheaded and fall Location: Not applicable Current Severity: Mild Maximum Severity: Severe Worsened by: Upright position Relieved by: Supine position Associated Symptoms Associated Symptoms: Orthostatic lightheadedness Narrative Narrative: Patient is a 59-year-old woman. She has history of hypertension on losartan, depression, hypercholesterolemia, type 2 diabetes on metformin and hypothyroidism. Patient states she is falling 18 times the past week. She stands up she comes lightheaded and falls. Yesterday she fell and her glass frame caused a cut to the bridge of her nose. Prior to today's fall she had a headache. She denies double vision, blurred vision or loss of vision. Denies ringing or ears or decreased hearing. She denies trouble with speech or swallowing. Patient denies chest discomfort, tightness, heaviness, shortness of breath, dyspnea on exertion or orthopnea. Patient denies shortness of breath or cough. Patient denies abdominal pain, nausea, vomiting, diarrhea, black or maroon-colored stool. She denies mucus in her stool. She denies bright red blood per rectum. Patient does endorse decreased urine output. She denies hematuria, dysuria or urgency. Patient denies upper or lower extremity pain. She denies bruising easily. She denies paresthesia, anesthesia or motor weakness. Prior similar symptoms: No Recent Illness/Hospitalization: No [facility] Medical History Depression Anxiety Hypertension Hyperthyroidism Home Medications ?Medication ?Instructions ?Recorded ?Last Taken ?Type metformin 1,000 mg 24 hr 1,000 mg PO DAILY 10/08/15 10/08/15 History tablet,extended release (gastric reten.) dicyclomine 20 mg tablet 20 mg PO 4X/DAY PRN PRN abdominal 06/05/24 Unknown History pain hydroxyzine HCl 25 mg tablet 25 mg PO 4X/DAY 06/05/24 Unknown History levetiracetam 500 mg tablet 500 mg PO BID 06/05/24 Unknown History levothyroxine 112 mcg tablet 112 mcg PO DAILY 06/05/24 Unknown History losartan 25 mg tablet 25 mg PO DAILY 06/05/24 Unknown History olanzapine 10 mg tablet 10 mg PO DAILY 06/05/24 Unknown History polyethylene glycol 3350 17 17 g PO DAILY #119 grams 06/05/24 Unknown Rx gram/dose oral powder (Miralax) ramelteon 8 mg tablet 8 mg PO QHS 06/05/24 Unknown History rosuvastatin 20 mg tablet 20 mg PO QHS 06/05/24 Unknown History sennosides 8.6 mg capsule (senna) 8.6 mg PO DAILY PRN constipation 06/05/24 Unknown Rx #14 caps sertraline 100 mg tablet 150 mg PO 06/05/24 Unknown History zolpidem 5 mg tablet 5 mg PO QHS PRN PRN insomnia 06/05/24 Unknown History ferrous sulfate 325 mg (65 mg 325 mg PO BID 08/17/24 Unknown History iron) tablet gabapentin 300 mg capsule 300 mg PO TID 08/17/24 Unknown History Allergy/AdvReac Type Severity Reaction Status Date / Time diphenhydramine (From Allergy Anaphylaxis Verified 08/17/24 17:37 Benadryl) morphine Allergy Anaphylaxis Verified 08/17/24 17:37 vancomycin Allergy Anaphylaxis Verified 08/17/24 17:37 Surgical History H/O spinal fusion H/O hernia repair Social History household members: none Smoking Status: Never smoker ROS ROS ED Constitutional Constitutional ED: Denies chills, fever(s), subjective, sweats or weight loss Eyes Eyes: Denies blurry vision, change in vision or diplopia ENT ENT ED: Denies ear pain, rhinorrhea or sore throat Cardiovascular Cardiovascular: Denies chest pain, orthopnea, palpitations, paroxysmal nocturnal dyspnea or racing heartbeat Respiratory/Chest Respiratory/Chest: Denies cough, dyspnea, dyspnea on exertion, orthopnea or paroxysmal nocturnal dyspnea Gastrointestinal Gastrointestinal: Denies abdominal pain, constipation, diarrhea, melena, nausea or vomiting Genitourinary Genitourinary ED: Reports other Details: Decreased urine output ; Denies dysuria, hematuria or urinary frequency Musculoskeletal Musculoskeletal: Denies arthralgias, back pain, myalgias or neck pain Neurologic Neurologic: Reports headache(s); Denies paresthesias or weakness Psychiatric Psychiatric: Denies anxiety or depression Endocrine Endocrinology: Denies cold intolerance or heat intolerance Hematologic/Lymphatic Hematologic/Lymphatic: Reports systems reviewed and no addt'l complaints, except as documented Allergic/Immunologic Allergic/Immunologic ED: Denies mouth swelling or tongue swelling EXAM Physical Exam Const Vital Signs: 08/17/24 16:54 08/17/24 17:03 08/17/24 18:52 Temperature 98.4 F Temperature Source Oral Pulse Rate 55 L 48 L Respiratory Rate 16 16 Respiratory Effort Normal Blood Pressure 91/37 L 113/59 L Blood Pressure Mean 55 77 Pulse Ox 95 95 Oxygen Delivery Method Room Air 08/17/24 20:00 Temperature Temperature Source Pulse Rate 47 L Respiratory Rate 15 Respiratory Effort Blood Pressure 123/77 H Blood Pressure Mean 92 Pulse Ox 96 Oxygen Delivery Method Room Air Positive well nourished and well developed Constitutional Narrative: BMI is 32.4. General Appearance ED: well developed and pallor; Negative for cyanotic or diaphoretic HEENT Reports dry mucous membranes HEENT Narrative: Patient has an abrasion bridge of the nose. There is no clinical findings of basilar skull fracture. There is no septal deviation or hematoma noted. Uvula is midline. Posterior pharynx is normal. Mouth ED: Yes dry mucous membranes Mouth: dry mucous membranes Eyes PERRL and EOMs intact bilaterally General Eye ED: Negative for pale conjunctiva or scleral icterus Neck no lymphadenopathy, supple and no JVD Chest Wall inspection of chest normal and palpation of chest normal Resp normal respiratory effort and clear to auscultation bilaterally Cardio regular rate, regular rhythm, S1 normal heart sound, S2 normal heart sound and no murmurs GI normal to inspection, nondistended, normoactive bowel sounds, non-tender, non-distended and no masses; Negative for hepatosplenomegaly GI Narrative: There is no pulsatile mass. There is no abdominal bruit. Thank you Back/Spine no CVA tenderness Cervical Spine: Negative for cervical spine tenderness Thoracic Spine / Upper Back: Negative for thoracic spinal tenderness Lumbar Spine / Lower Back: Negative for lumbar spinal tenderness Extremity normal to inspection Neuro oriented x3 and CN's II-XII intact bilaterally Sensorium / Orientation: alert Psych mental status grossly normal Skin no rashes or lesions noted, No no wounds and skin turgor normal General Skin Exam: pallor; Negative for jaundice MDM MDM MDM Narrative Medical decision making narrative: Vital signs are marked for hypotension and bradycardia. With patient having history of diabetes this could represent autonomic dysfunction. This could represent atypical presentation for cardiac ischemia. Need to consider infectious source. Need to consider GI bleed. Since patient has history of hypothyroidism need to consider significant hypothyroidism and possible myxedema coma. Patient has asked for medicine for her headache. Reluctant to give oral at this time. Reluctant to give IV parenteral because it may cause her blood pressure to lower more. Lab Data Attestation: I reviewed the patient's lab results. Lab results narrative: CBC is normal. Basic metabolic panel is normal. Liver profile reveals slight elevation of alkaline phosphatase. Lactate is normal. Labs: Laboratory Results - last 24 hr 08/17/24 08/17/24 08/17/24 17:37 17:46 19:10 WBC 8.8 RBC 4.23 Hgb 12.8 Hct 36.8 L MCV 87.0 MCH 30.3 MCHC 34.8 RDW Std Deviation 40.9 RDW Coeff of Bobby 12.9 Plt Count 291 MPV 11.2 Immature Gran % (Auto) 0.200 Neut % (Auto) 65.0 Lymph % (Auto) 24.8 White % (Auto) 7.1 Eos % (Auto) 2.3 Baso % (Auto) 0.6 Absolute Neuts (auto) 5.7 Absolute Lymphs (auto) 2.19 Nucleated RBC % 0 Sodium 138 Potassium 4.7 Chloride 106 Carbon Dioxide 23.2 Anion Gap 9 BUN 11 Creatinine 0.75 Estim Creat Clear Calc 79.28 Est GFR (MDRD) Non-Af 91 BUN/Creatinine Ratio 14.2 Glucose 77 Lactic Acid < 1.0 Calcium 8.3 Total Bilirubin 0.35 AST 39 H ALT 30 Alkaline Phosphatase 120 H Troponin T High Sens 9 Troponin T Hi Sens 2 Hr Total Protein 6.5 Albumin 4.0 Globulin 2.4 Albumin/Globulin Ratio 1.7 TSH 4.980 H Urine Color Urine Clarity Urine pH Ur Specific [place] Urine Protein Urine Glucose (UA) Urine Ketones Urine Occult Blood Urine Nitrite Urine Bilirubin Urine Urobilinogen Ur Leukocyte Esterase Urine RBC Urine WBC Ur Squamous Epith Cells Urine Bacteria Urine Mucus POC Glucose 08/17/24 08/17/24 08/17/24 19:28 19:36 21:22 WBC RBC Hgb Hct MCV MCH MCHC RDW Std Deviation RDW Coeff of Bobby Plt Count MPV Immature Gran % (Auto) Neut % (Auto) Lymph % (Auto) White % (Auto) Eos % (Auto) Baso % (Auto) Absolute Neuts (auto) Absolute Lymphs (auto) Nucleated RBC % Sodium Potassium Chloride Carbon Dioxide Anion Gap BUN Creatinine Estim Creat Clear Calc Est GFR (MDRD) Non-Af BUN/Creatinine Ratio Glucose Lactic Acid Calcium Total Bilirubin AST ALT Alkaline Phosphatase Troponin T High Sens Troponin T Hi Sens 2 Hr 8 Total Protein Albumin Globulin Albumin/Globulin Ratio TSH Urine Color Yellow Urine Clarity Clear Urine pH 6.0 Ur Specific [place] 1.015 Urine Protein 15 H Urine Glucose (UA) Normal Urine Ketones Negative Urine Occult Blood Negative Urine Nitrite Negative Urine Bilirubin Negative Urine Urobilinogen Normal Ur Leukocyte Esterase Negative Urine RBC 0-5 SEEN Urine WBC 0-5 SEEN Ur Squamous Epith Cells 0-5 SEEN Urine Bacteria 0 SEEN Urine Mucus 0 SEEN POC Glucose 75 UA is unremarkable. EKG Initial EKG: Attestation: I personally reviewed and interpreted this EKG as follows: Interpretation: Sinus Bradycardia (Sinus bradycardia rate of 48. [place] interval is 188 ms cures duration 82 ms. QT duration 190 ms. [place] is normal) Treatment and Re-Evaluation :: Patient was reassessed at 2201. Patient looks much better. She is smiling. She reports she feels much better. Her blood pressure is improved markedly. Suspect patient's hypotension was due to hypovolemia. Will discharge to home since there is no evidence of infection. Furthermore there is no evidence of cardiac ischemia. Her heart rate on the monitor is now 55. Discharge Plan Triage Chief Complaint: Syncope ED Provider: Kvng Pelaez Dx/Rx/DC Orders Clinical Impression: Hypotension due to hypovolemia, Headache, Type 2 diabetes mellitus, Persistent sinus bradycardia, Abrasion of nose, Frequent falls Instructions: ED Low Blood Pressure, All Causes Prescriptions: No Action metformin 1,000 MG tablet,ER jane.retention 24 hr 1,000 mg PO DAILY Patient Comments: diabetes polyethylene glycol 3350 [Miralax] 17 gram/dose powder 17 g PO DAILY Qty: 119 0RF senna 8.6 mg capsule 8.6 mg PO DAILY PRN (Reason: constipation) Qty: 14 0RF levetiracetam 500 mg tablet 500 mg PO BID sertraline 100 mg tablet 150 mg PO olanzapine 10 mg tablet 10 mg PO DAILY dicyclomine 20 mg tablet 20 mg PO 4X/DAY PRN PRN (Reason: abdominal pain) losartan 25 mg tablet 25 mg PO DAILY hydroxyzine HCl 25 mg tablet 25 mg PO 4X/DAY zolpidem 5 mg tablet 5 mg PO QHS PRN PRN (Reason: insomnia) levothyroxine 112 mcg tablet 112 mcg PO DAILY rosuvastatin 20 mg tablet 20 mg PO QHS ramelteon 8 mg tablet 8 mg PO QHS ferrous sulfate 325 mg (65 mg iron) tablet 325 mg PO BID gabapentin 300 mg capsule 300 mg PO TID Primary Care Provider: Ruslan Gutierrez Referrals: Ruslan Gutierrez DO [Primary Care Provider] - 3-5 Days Print Language: Belgian Disposition Disposition: Home, Self Care
[2024-08-17] MEDS: fentaNYL 100 MCG/2 ML Ampul 50 MCG IV (19:20)
[2024-08-17 19:36] LABS: Bacteria 0 SEEN /hpf (None Seen); Mucous, Urine 0 SEEN /hpf (<or=2+)
[2024-08-17 19:42] LABS: Color, Urine Yellow (Yellow); Glucose, Dipstick Normal (Normal); Ketone-Dipstick Negative (Negative); Leukocyte Esterase-Dipstick Negative /ul (Negative); Nitrite-Dipstick Negative (Negative); Occult Blood-Urine Negative /ul (Negative); Protein-Dipstick 15 mg/dl (Negative); Specific Gravity, Urine 1.015 (1.002-1.030); Urine Bilirubin Dipstick Negative (Negative); Urine Clarity Clear (Clear); Urine Urobilinogen Normal (Normal)
[2024-08-17 19:54] LABS: Bedside Glucose 75 mg/dL (74-106)
[2024-08-17 20:00] VITALS: BP 123/77; PULSE 47; RESP 15; O2SAT 96
[2024-08-17 20:08] LABS: Troponin T High Sensitivity 9 ng/L (<=14)
[2024-08-17 20:19] LABS: Red Blood Cells-Urine 0-5 SEEN /hpf (0-5); Squamous Epithelial Cells - UA 0-5 SEEN /hpf (5-10); White Blood Cells 0-5 SEEN /hpf (0-5)
[2024-08-17 21:52] LABS: Troponin T High Sens 2 HR 8 ng/L (<=14)
[2024-08-17 22:00] VITALS: BP 130/80; PULSE 50; RESP 16; O2SAT 93
[2024-08-17 22:11] VITALS: BP 130/80; PULSE 50; RESP 16; TEMP 36.9; O2SAT 93
== END 2024-08-17 22:14 | disposition home or self-care (01) ==
PROVIDERS: Emergency Provider Emergency Medicine; PCP Student in an Organized Health Care Education/Training Program; Visit Provider Emergency Medicine
DX: I95.89 Other hypotension (principal); E11.9 Type 2 diabetes mellitus without complications; S00.31XA Abrasion of nose, initial encounter; W19.XXXA Unspecified fall, initial encounter; E86.1 Hypovolemia; I10 Essential (primary) hypertension; E78.00 Pure hypercholesterolemia, unspecified; E03.9 Hypothyroidism, unspecified; R00.1 Bradycardia, unspecified; R29.6 Repeated falls; Z79.84 Long term (current) use of oral hypoglycemic drugs; Z79.890 Hormone replacement therapy; Z79.899 Other long term (current) drug therapy
CPT/HCPCS: 80053; 81001; 82962; 83605; 84443; 84484; 85025; 93005; 96361; 96374; 99285; P9612; A4216

== ENCOUNTER 2024-10-11 16:05 | Inpatient (IN) | payer MEDICARE, SELFPAY ==
[2024-10-11 16:07] VITALS: BP 142/81; PULSE 49; RESP 19; TEMP 36.8; O2SAT 97; BMI 32.3
--- NOTE | 2024-10-11 17:05 | CT_ITS ---
PROCEDURE: CT ABDOMEN/PELVIS W IV CONT ONLY 10/11/2024 REASON FOR EXAM: ABD PAIN TECHNIQUE: CT ABDOMEN/PELVIS W IV CONT ONLY Coronal and Sagittal reconstruction series were provided. CONTRAST: Isovue 370 VOLUME: 98 mL One or more dose reduction techniques were used (e.g., Automated exposure control, adjustment of the mA and/or kV according to patient size, use of iterative reconstruction technique. RADIATION DOSE SUMMARY: DLP: 1075.38 mGycm COMPARISON: Abdominal CT 06/05/2024. FINDINGS: Lung bases: Clear, with mild dependent atelectasis. Liver: Diffuse hepatic steatosis. Otherwise unremarkable. Gallbladder: Surgically absent. Spleen: Unremarkable. Pancreas: No significant abnormality. No ductal dilatation. Stable benign- appearing circumscribed cyst measuring up to 1.5 cm in the pancreatic head/neck region. Adrenals: Unremarkable. Kidneys: Symmetric enhancement. Small nonobstructive stone in the lower pole of the left kidney. No hydroureteronephrosis on either side or perinephric edema. No mass. Bladder: Underdistended, grossly unremarkable. Reproductive Organs: Prior hysterectomy. Unremarkable adnexal regions. Bowel: Postoperative changes of gastric bypass and small bowel anastomosis in the left midabdomen. No evidence of obstruction. Normal appendix. Moderate scattered colonic diverticulosis. There is a localized prominent diverticulum along the descending colon in the left midabdomen with localized mild inflammatory fat stranding/edema, suggesting mild/early acute diverticulitis. No evidence of perforation. Lymph nodes: No enlarged abdominopelvic lymph nodes. Surgical clips/suture material anterior to the right iliac bifurcation. Vasculature: Normal caliber abdominal aorta and IVC. Mild atherosclerotic calcifications. Peritoneum / Retroperitoneum: No ascites or free air. Musculoskeletal: Mild degenerative changes of the spine. Postoperative changes from prior lower ventral abdominal wall hernia repair. No incisional hernia. CT/Abdomen/Pelvis W IV Cont ONLY IMPRESSION: 1. Probable mild/early diverticulitis focally involving the descending colon. 2. Small nonobstructive left renal stone. No hydroureteronephrosis. 3. Diffuse hepatic steatosis. 4. Unchanged 1.5 cm benign-appearing cyst in the pancreatic head/neck. 5. Chronic and postoperative ancillary findings as described above. Reading Location: [id number]
--- NOTE | 2024-10-11 17:05 | CT_ITS ---
PROCEDURE: CT BRAIN/HEAD WITHOUT CONTRAST 10/11/2024 REASON FOR EXAM: ALOC TECHNIQUE: CT BRAIN/HEAD WITHOUT CONTRAST. Coronal and Sagittal reconstruction series were provided. One or more dose reduction techniques were used (e.g., Automated exposure control, adjustment of the mA and/or kV according to patient size, use of iterative reconstruction technique. RADIATION DOSE SUMMARY: DLP: 1075.38 mGycm COMPARISON: None. FINDINGS: No acute intracranial hemorrhage, extra-axial collection, mass effect or evidence of acute infarct. Mild generalized brain parenchymal volume loss, and chronic microangiopathic changes, which are somewhat advanced for patient's age. Orbital contents are unremarkable. Intact skull base and calvarium. Clear paranasal sinuses and mastoid air cells. CT/Brain/Head without Contrast IMPRESSION: No acute intracranial abnormality. Mild generalized brain parenchymal volume l oss and chronic microangiopathic changes, which appears somewhat advanced for patient's age. Reading Location: [id number]
--- NOTE | 2024-10-11 17:06 | EKG12_ITS ---
Test Reason : CHANGE Blood Pressure : */* mmHG Vent. Rate : 42 BPM Atrial Rate : 42 BPM P-R Int : 172 ms QRS Dur : 92 ms QT Int : 516 ms P-R-T Axes : 19 12 19 degrees QTcB Int : 430 ms Marked sinus bradycardia with Premature atrial complexes Nonspecific ST abnormality Abnormal ECG When compared with ECG of 14-Oct-2024 06:08, MANUAL COMPARISON REQUIRED DATA IS UNCONFIRMED Confirmed by HIRAM NORWOOD, JAYLA ([id number]), editorial writer PHILIP PRESCOTT ([id number]) on 10/18/2024 6:15:01 AM Referred By: CHICAS Confirmed By: JAYLA GANDHI MD
[2024-10-11 17:14] LABS: Hematocrit 34.8 % (37-47); Hemoglobin 11.9 g/dL (12.0-15.0); Immature Granulocytes Count 0.020 X10^3/uL (0.0-0.0); Mean Corp Hgb Conc 34.2 g/dL (32-36); Mean Corpuscular Volume 86.6 fL (81-99); Mean Platelet Vol. 11.0 fl (6.2-12.0); NRBC Flagged by Analyzer 0 % (0-5); Platelet Count 248 K/mm3 (150-450); RBC Distribution Width CV 14.1 % (11.6-14.6); RBC Distribution Width SD 44.6 fl (35.1-43.9); Red Blood Count 4.02 M/mm3 (4.2-5.4); White Blood Count 7.2 K/mm3 (4.4-11.0)
[2024-10-11] MEDS: Ketorolac 30 MG/ML Syringe IV (17:19)
[2024-10-11 17:30] LABS: Mucous, Urine 0 SEEN /hpf (<or=2+)
[2024-10-11 17:36] LABS: Troponin T High Sensitivity 8 ng/L (<=14)
[2024-10-11 17:39] LABS: Color, Urine Straw (Yellow); Glucose, Dipstick Normal (Normal); Ketone-Dipstick Negative (Negative); Leukocyte Esterase-Dipstick 100 /ul (Negative); Nitrite-Dipstick Negative (Negative); Occult Blood-Urine Negative /ul (Negative); Protein-Dipstick 30 mg/dl (Negative); Specific Gravity, Urine 1.010 (1.002-1.030); Urine Bilirubin Dipstick Negative (Negative)
[2024-10-11 18:00] LABS: AST(SGOT) 32 U/L (<=31); Alanine Aminotransfer ALT/SGPT 25 U/L (<=34); Albumin, Serum 4.0 g/dL (3.5-5.0); Alkaline Phosphatase 120 U/L (35-104); Anion Gap 15 (5-15); BUN 12 mg/dL (4-19); BUN/Creat Ratio 15.7 RATIO (10-20); Bilirubin, Direct 0.09 mg/dL (0.00-0.30); Calcium,Total 8.8 mg/dL (7.6-11.0); Carbon Dioxide 19.8 mmol/L (21.0-32.0); Chloride 106 mmol/L (98-108); Estimated Creatinine Clearance 80.25 ml/min (50-250); Globulin 2.6 g/dL (2.2-4.2); Glucose 87 mg/dL (70-99); Lipase 29 U/L (13-75); Potassium 3.1 mmol/L (3.3-5.1)
[2024-10-11 18:06] VITALS: BP 145/66; PULSE 45; RESP 18; O2SAT 96
--- NOTE | 2024-10-11 18:13 | RAD_ITS ---
PROCEDURE: CHEST PA AND LATERAL 10/11/2024 REASON FOR EXAM: CHEST PAIN TECHNIQUE: CHEST PA AND LATERAL COMPARISON: Chest x-ray FINDINGS: Hardware: Stable ACDF. Heart: Heart size is moderately enlarged. Mediastinum: The mediastinal contour is unremarkable. Lungs: Bilateral pulmonary vascular congestion. Bones: Degenerative changes are identified within the thoracic spine. Other: Surgical clips within bilateral upper quadrants. RAD/Chest PA and Lateral IMPRESSION: NO SIGNIFICANT CHANGE SINCE THE PRIOR EXAM. Reading Location: [id number]
--- NOTE | 2024-10-11 18:22 | EX.ED.DYSGE1 ---
HPI History of Present Illness Chief Complaint: Alt LOC Informant: patient Onset/Context/Timing Onset: Today Current Severity: Moderate Maximum Severity: Moderate Narrative Narrative: 59-year-old female history of prior gastric bypass, lumbar fusion and neck surgery. Also history of hypertension. Today had a syncopal event which she lost conscious. This is around 2 PM. She also complained of chest and abdominal pain. Denies recent illness. Denies vomiting or diarrhea. Denies headache. No recent fever. Prior similar symptoms: No Recent Illness/Hospitalization: No PFSH PFS Medical History Depression Anxiety Hypertension Hyperthyroidism Home Medications ?Medication ?Instructions ?Recorded ?Last Taken ?Type metformin 1,000 mg 24 hr 1,000 mg PO DAILY 10/08/15 10/11/24 History tablet,extended release (gastric reten.) dicyclomine 20 mg tablet 20 mg PO 4X/DAY PRN PRN abdominal 06/05/24 Unknown History pain hydroxyzine HCl 25 mg tablet 25 mg PO PRN 06/05/24 Unknown History levetiracetam 500 mg tablet 500 mg PO BID 06/05/24 10/11/24 History levothyroxine 112 mcg tablet 112 mcg PO DAILY 06/05/24 10/11/24 History losartan 25 mg tablet 25 mg PO DAILY 06/05/24 10/11/24 History olanzapine 10 mg tablet 10 mg PO DAILY 06/05/24 Unknown History ramelteon 8 mg tablet 8 mg PO QHS 06/05/24 10/10/24 History rosuvastatin 20 mg tablet 20 mg PO QHS 06/05/24 10/10/24 History sertraline 100 mg tablet 150 mg PO QHS 06/05/24 10/10/24 History zolpidem 5 mg tablet 5 mg PO QHS PRN PRN insomnia 06/05/24 Unknown History ferrous sulfate 325 mg (65 mg 325 mg PO BID 08/17/24 10/11/24 History iron) tablet gabapentin 300 mg capsule 300 mg PO TID 08/17/24 10/11/24 History cholecalciferol (vitamin D3) 50 100 mcg PO DAILY 10/11/24 10/11/24 History mcg (2,000 unit) capsule docusate sodium 100 mg capsule 100 mg PO BID 10/11/24 10/11/24 History sennosides 8.6 mg tablet (Alfreda-johana) 17.2 mg PO QHS 10/11/24 10/10/24 History tizanidine 4 mg tablet 4 mg PO Q8H PRN PRN muscle spasm 10/11/24 Unknown History Allergy/AdvReac Type Severity Reaction Status Date / Time diphenhydramine (From Allergy Anaphylaxis Verified 10/11/24 16:07 Benadryl) morphine Allergy Anaphylaxis Verified 10/11/24 16:07 vancomycin Allergy Anaphylaxis Verified 10/11/24 16:07 Family History no significant family his Surgical History H/O spinal fusion H/O hernia repair Social History household members: none Smoking Status: Never smoker ROS ROS ED ROS Narrative Denies recent illness. Today syncopal event. Chest pain. Abdominal pain. Constitutional Constitutional ED: Denies chills or fever(s) Eyes Eyes: Denies blurry vision ENT ENT ED: Denies ear pain Cardiovascular Cardiovascular: Reports chest pain; Denies palpitations or racing heartbeat Respiratory/Chest Respiratory/Chest: Denies cough or dyspnea Gastrointestinal Gastrointestinal: Reports abdominal pain; Denies constipation, diarrhea, melena, nausea or vomiting Genitourinary Genitourinary ED: Denies dysuria or hematuria Musculoskeletal Musculoskeletal: Denies arthralgias Integumentary Denies abscess Neurologic Neurologic: Denies headache(s) Psychiatric Psychiatric: Denies anxiety Endocrine Endocrinology: Denies cold intolerance Hematologic/Lymphatic Hematologic/Lymphatic: Reports none Allergic/Immunologic Allergic/Immunologic ED: Denies mouth swelling, tongue swelling or urticaria EXAM Physical Exam Narrative Exam Narrative: Well-appearing 59-year-old female vital signs initially stable other her rate was 49. Patient pressure 142/81. She does not look septic toxic or in distress. Pupils round reactive light. Motions are intact. No signs of trauma to her face or scalp. Nontender no hematoma. No laceration. Neck nontender. Trachea midline. Back nontender. Lungs clear to auscultation bilaterally. Heart sinus bradycardia. No murmur. Chest wall ribs nontender. Abdomen soft nontender. Moving all 4 extremities. Normal manager family. Normal dorsi plantarflexion. Calves nontender no edema no cords. Neurologically she is awake and alert. Answering questions and following commands. NIH is 0. Const Vital Signs: 10/11/24 16:07 10/11/24 17:10 10/11/24 18:06 Temperature 98.2 F Temperature Source Oral Pulse Rate 49 L 45 L Respiratory Rate 19 H 18 Blood Pressure 142/81 H 145/66 H Blood Pressure Mean 101 92 Pulse Ox 97 96 Oxygen Delivery Method Room Air Room Air Room Air 10/11/24 18:36 Temperature 98.2 F Temperature Source Pulse Rate 45 L Respiratory Rate 18 Blood Pressure 145/66 H Blood Pressure Mean 92 Pulse Ox 96 Oxygen Delivery Method Positive well developed; Negative for cachectic, contractures or unkempt General Appearance ED: well developed and NAD; Negative for unkempt, cachectic, contractures, cyanotic, diaphoretic or pallor Nutritional Appearance: Negative for cachectic HEENT Reports moist mucous membranes Negative for trauma or tenderness Eyes PERRL and EOMs intact bilaterally General Eye ED: Negative for pale conjunctiva or scleral icterus Neck no lymphadenopathy, supple and no JVD General: Negative for tenderness Lymph Lymphatic: Negative for other Chest Wall inspection of chest normal and palpation of chest normal Resp normal respiratory effort and clear to auscultation bilaterally Cardio regular rhythm, S1 normal heart sound, S2 normal heart sound and no murmurs; Negative for regular rate Rate: bradycardia and other Other Details: Sinus bradycardia rate in the 40s GI normal to inspection, nondistended, normoactive bowel sounds, non-tender, non-distended and no masses Auscultation: normoactive bowel sounds Palpation: soft; Negative for tender, guarding or rebound tenderness present Back/Spine no CVA tenderness General Back: Negative for CVA tenderness Cervical Spine: Negative for cervical spine tenderness Thoracic Spine / Upper Back: Negative for thoracic spinal tenderness or paraspinal muscle tenderness Lumbar Spine / Lower Back: Negative for lumbar spinal tenderness Extremity normal to inspection General Extremety ED: Negative for edema or tenderness General Extremity: Negative for edema Neuro oriented x3 and CN's II-XII intact bilaterally Sensorium / Orientation: alert Motor Exam: strength 5/5 throughout Psych mental status grossly normal Appearance: Negative for unkempt Attitude: No agitated Mood & Affect: Negative for depressed, anxious or tearful Skin no rashes or lesions noted, no wounds and skin turgor normal General Skin Exam: elasticity normal; Negative for jaundice or pallor Lesions: No lesion noted Rashes: No rashes noted Trauma: Negative for abrasion Wounds: Negative for wounds noted MDM MDM MDM Narrative Medical decision making narrative: 59-year-old female with a syncopal episode with the bradycardia also complaining of chest and abdominal pain. Cardiac workup with both a CT of her head for the altered level of consciousness and CT of the abdomen due to the abdominal pain. Repeat exam patient is resting comfortably at 6:30 PM. Still complaining of chest pain he should be given some morphine. Heart rate is currently 47 appears to be a sinus bradycardia on the monitor as it is on her EKG. She has got good blood pressure with it. I gone over the test results that are back we are still waiting on her CAT scan results and final on the UA. Repeat exam at 7:30 PM patient is doing well. In light of her syncope and bradycardia I will have her admitted for further evaluation. Due to the diverticulitis she will be started on oral antibiotics Cipro and Flagyl. History & Record Review Additional record(s) reviewed:: Prior inpatient record, Prior outpatient record, Prior ED visit and Prior labs Lab Data Attestation: I reviewed the patient's lab results. Lab results narrative: CBC shows a white count of 7 H&H 11.9 and 34. Platelets 248. Electrolytes are sodium 141. Potassium 3.1. Gap 15. Normal BUN of 12 creatinine 0.74. Liver enzymes unremarkable. Lipase normal at 29. Urinalysis shows no nitrites. No red cells. 5-10 white cells. No bacteria. Will not be treated. TSH is slightly elevated at 4.3. Initial troponin is only 8. 2-hour troponin is 9. Labs: Laboratory Results - last 24 hr 10/11/24 10/11/24 10/11/24 16:14 17:15 18:20 WBC 7.2 RBC 4.02 L Hgb 11.9 L Hct 34.8 L MCV 86.6 MCH 29.6 MCHC 34.2 RDW Std Deviation 44.6 H RDW Coeff of Bobby 14.1 Plt Count 248 MPV 11.0 Immature Gran % (Auto) 0.300 Neut % (Auto) 52.9 Lymph % (Auto) 37.3 [place] % (Auto) 6.6 Eos % (Auto) 2.2 Baso % (Auto) 0.7 Absolute Neuts (auto) 3.8 Absolute Lymphs (auto) 2.70 Nucleated RBC % 0 Sodium 141 Potassium 3.1 L Chloride 106 Carbon Dioxide 19.8 L Anion Gap 15 BUN 12 Creatinine 0.74 Estim Creat Clear Calc 80.25 Est GFR (MDRD) Non-Af 93 BUN/Creatinine Ratio 15.7 Glucose 87 Calcium 8.8 Total Bilirubin 0.20 Direct Bilirubin 0.09 AST 32 ALT 25 Alkaline Phosphatase 120 H Troponin T High Sens 8 D Troponin T Hi Sens 2 Hr 9 Total Protein 6.6 Albumin 4.0 Globulin 2.6 Lipase 29 TSH 4.310 H Urine Color Straw Urine Clarity Clear Urine pH 6.5 Ur Specific [place] 1.010 Urine Protein 30 H Urine Glucose (UA) Normal Urine Ketones Negative Urine Occult Blood Negative Urine Nitrite Negative Urine Bilirubin Negative Urine Urobilinogen Normal Ur Leukocyte Esterase 100 H Urine RBC 0-5 SEEN Urine WBC 5-10 SEEN Ur Squamous Epith Cells 0-5 SEEN Urine Bacteria 0 SEEN Urine Mucus 0 SEEN Radiography Chest X-Ray - ED: 2 View, Read by ED Physician, Normal, Heart, Lungs, Mediastinum, Bony Structures, No Acute Disease and Chronic Changes Diagnostic Testing: Clinical Impression(s) from Imaging Studies Abdomen/Pelvis CT 10/11/24 17:05 IMPRESSION: 1. Probable mild/early diverticulitis focally involving the descending colon. 2. Small nonobstructive left renal stone. No hydroureteronephrosis. 3. Diffuse hepatic steatosis. 4. Unchanged 1.5 cm benign-appearing cyst in the pancreatic head/neck. 5. Chronic and postoperative ancillary findings as described above. Reading Location: [facility] Brain CT 10/11/24 17:05 IMPRESSION: No acute intracranial abnormality. Mild generalized brain parenchymal volume loss and chronic microangiopathic changes, which appears somewhat advanced for patient's age. Reading Location: [facility] Chest X-Ray 10/11/24 18:13 IMPRESSION: NO SIGNIFICANT CHANGE SINCE THE PRIOR EXAM. Reading Location: [id number] Chest x-ray, 2 views, AP and lateral, interpreted by myself shows no acute abnormality. Normal cardiac silhouette. Normal lung ramirez. Chronic changes. Prior cervical hardware for neck surgery. Rhythm Strip Rhythm Strip: Sinus bradycardia Rate: 37 Ectopy: None EKG Initial EKG: Attestation: I personally reviewed and interpreted this EKG as follows: Interpretation: No Acute Injury Pattern and Sinus Bradycardia Comments: Sinus bradycardia rate of 37 no acute signs of VT or ischemia. Very P wave there is a QRS the appear to be conducted through. Discharge Plan Dx/Rx/DC Orders Clinical Impression: Syncope, Altered level of consciousness, Bradycardia, sinus, Acute diverticulitis, Abdominal pain Disposition Disposition: Acute Care [facility]
[2024-10-11 18:36] VITALS: BP 145/66; PULSE 45; RESP 18; TEMP 36.8; O2SAT 96
[2024-10-11 19:08] LABS: Troponin T High Sens 2 HR 9 ng/L (<=14)
[2024-10-11 19:18] LABS: Squamous Epithelial Cells - UA 0-5 SEEN /hpf (5-10)
[2024-10-11 19:19] LABS: Red Blood Cells-Urine 0-5 SEEN /hpf (0-5)
--- NOTE | 2024-10-11 19:31 | PCM.HP.STD ---
[facility] - General General Date of Admission: 10/11/24 Date of Service: 10/11/24 Chief Complaint: AMS, Syncope and Abdominal Pain. HPI Narrative KEILA GREEN, is a 59 F with a past medical history of essential hypertension; on losartan, hyperlipidemia; on rosuvastatin, hypothyroidism; on levothyroxine, obesity (class I); with BMI of 32.3 this admission, history of gastric bypass (~2023); with subsequent chronic abdominal pain, chronic abdominal pain; on dicyclomine QID prn, DM-2; of unknown control on metformin, history of recurrent syncope; with ER visit in July of this year with patient reporting falling 18 times in 1 week with additional complaints of orthostatic lightheadedness, seizure disorder; levetiracetam BID, neuropathy; on gabapentin TID, depression with anxiety; on sertraline and olanzapine, muscle spasms; on prn tizanidine, MARYCHUY; on ferrous sulfate BID, history of hernia; s/p repair and OA; s/p lumbar fusion and neck surgery who presents to [facility] ER complaining of altered mental status, syncope and abdominal pain. Ms. Green reports her symptoms began approximately at ~2:00 PM today when she had a syncopal episode followed by a brief period of confusion. She also admits to associated chest pain that was pressure-like, substernal, moderate and seemed to be radiating from her abdomen into her chest with nothing making the pain better or worse. She also had primarily upper abdominal pain that was intermittent and [id number] that radiated up into her chest with patient stating she has been having similar but less severe issues in the past since her gastric bypass. She denies associated fever, chills, visual changes, runny nose, sore throat, ear pain, SOB, cough, palpitations, heart racing, LE edema, dysuria, hematuria, headache, rash or focal neurologic weakness. In the ER she was noted to have a CT scan of the abdomen and pelvis that revealed probable mild/early Diverticulitis focally involving the descending colon with a small nonobstructive Left renal stone with no hydronephrosis with diffuse hepatic steatosis and unchanged ~1.5 cm benign-appearing cyst in the pancreatic head/neck in addition to chronic and postoperative ancillary findings she also underwent a head CT without contrast that revealed no acute intracranial findings with mild generalized brain parenchymal volume loss and microangiopathic changes, which appears somewhat advanced for patient's age complicated by laboratory evidence of Hypokalemia of 3.1 mmol/L present on admission and EKG evidence of Sinus Bradycardia with heart rate of ~45 bpm and significantly prolonged QT-interval of ~500 msec in the setting of recurrent Syncope and she was then admitted to the PCU for ongoing care for a stay that is expected to extend beyond 2 midnights. [facility] Medical History Depression Anxiety Hypertension Hyperthyroidism Home Medications ?Medication ?Instructions ?Recorded ?Last Taken ?Type metformin 1,000 mg 24 hr 1,000 mg PO DAILY 10/08/15 10/11/24 History tablet,extended release (gastric reten.) dicyclomine 20 mg tablet 20 mg PO 4X/DAY PRN PRN abdominal 06/05/24 Unknown History pain hydroxyzine HCl 25 mg tablet 25 mg PO PRN 06/05/24 Unknown History levetiracetam 500 mg tablet 500 mg PO BID 06/05/24 10/11/24 History levothyroxine 112 mcg tablet 112 mcg PO DAILY 06/05/24 10/11/24 History losartan 25 mg tablet 25 mg PO DAILY 06/05/24 10/11/24 History olanzapine 10 mg tablet 10 mg PO DAILY 06/05/24 Unknown History ramelteon 8 mg tablet 8 mg PO QHS 06/05/24 10/10/24 History rosuvastatin 20 mg tablet 20 mg PO QHS 06/05/24 10/10/24 History sertraline 100 mg tablet 150 mg PO QHS 06/05/24 10/10/24 History zolpidem 5 mg tablet 5 mg PO QHS PRN PRN insomnia 06/05/24 Unknown History ferrous sulfate 325 mg (65 mg 325 mg PO BID 08/17/24 10/11/24 History iron) tablet gabapentin 300 mg capsule 300 mg PO TID 08/17/24 10/11/24 History cholecalciferol (vitamin D3) 50 100 mcg PO DAILY 10/11/24 10/11/24 History mcg (2,000 unit) capsule docusate sodium 100 mg capsule 100 mg PO BID 10/11/24 10/11/24 History sennosides 8.6 mg tablet (Alfreda-johana) 17.2 mg PO QHS 10/11/24 10/10/24 History tizanidine 4 mg tablet 4 mg PO Q8H PRN PRN muscle spasm 10/11/24 Unknown History Allergy/AdvReac Type Severity Reaction Status Date / Time diphenhydramine (From Allergy Anaphylaxis Verified 10/11/24 16:07 Benadryl) morphine Allergy Anaphylaxis Verified 10/11/24 16:07 vancomycin Allergy Anaphylaxis Verified 10/11/24 16:07 Family History no significant family his Surgical History H/O spinal fusion H/O hernia repair Social History household members: none Smoking Status: Never smoker ROS ROS Narrative Review of Systems: Constitutional: Patient denies fever or chills. Eyes: Patient denies changes in vision or discharge from eyes. ENT: Patient denies runny nose, sore throat or ear pain. Resp: Patient denies shortness of breath or cough. CV: Patient admits to chest pain and syncope as per HPI. She denies palpitations, heart racing or lower extremity edema. GI: Patient admits to generalized abdominal pain but she denies nausea, vomiting, diarrhea or constipation. : Patient denies dysuria or hematuria. MSK: Patient denies arthralgias or myalgias. Skin: Patient denies rash, abscess, wounds or jaundice. Psych: Patient denies symptoms of uncontrolled depression or anxiety. Neuro: Patient denies headache, paresthesias or focal neurologic deficits. Allergy: Patient denies lip swelling, tongue swelling or urticaria. Hematology: Patient denies easy bleeding or easy bruisability. Endocrinology: Patient denies polyuria, polydipsia, polyphagia or heat/cold intolerance. 14 point ROS otherwise negative except for positives noted above in HPI. Vital Signs Vital Signs Vital Signs: 10/11/24 16:07 10/11/24 17:10 10/11/24 18:06 Temperature 98.2 F Temperature Source Oral Pulse Rate 49 L 45 L Respiratory Rate 19 H 18 Blood Pressure 142/81 H 145/66 H Blood Pressure Mean 101 92 Pulse Ox 97 96 Oxygen Delivery Method Room Air Room Air Room Air 10/11/24 18:36 Temperature 98.2 F Temperature Source Pulse Rate 45 L Respiratory Rate 18 Blood Pressure 145/66 H Blood Pressure Mean 92 Pulse Ox 96 Oxygen Delivery Method Weight Weight: 176 lb 9.444 oz Body Mass Index (BMI) 32.3 Physical Exam Const alert, oriented x3 and no apparent distress Constitutional Narrative: Obese and nontoxic in appearance. General Appearance: cooperative HEENT normocephalic, head/scalp atraumatic, hearing grossly normal bilaterally and moist oral mucous membranes Eyes PERRL, EOMs intact bilaterally and conjunctivae normal Neck no lymphadenopathy, supple and no JVD Resp normal respiratory effort, no retractions, no use of accessory muscles and clear to auscultation bilaterally Cardio regular rate and regular rhythm Cardio Narrative: Bradycardia at ~45 bpm noted. GI normal to inspection, nondistended, normoactive bowel sounds, soft to palpation, non-tender and non-distended Extremity normal to inspection, full ROM and no clubbing, cyanosis or edema Skin Skin Narrative: Patient is evidence of rash, abscess, wounds or jaundice. Neuro oriented x3, CN's II-XII intact bilaterally, moves all extremities and no focal motor deficits Sensorium / Orientation: awake, alert, oriented to person, oriented to place and oriented to time Speech: speech normal Psych affect normal Results Medical Records Data Attestation: I reviewed the patient's medical records Lab / Micro Data Attestation: I reviewed the patient's lab results. 10/11/24 16:14 10/11/24 16:14 Labs: Laboratory Results - last 24 hr 10/11/24 16:14: WBC 7.2, RBC 4.02 L, Hgb 11.9 L, Hct 34.8 L, MCV 86.6, MCH 29.6, MCHC 34.2, RDW Std Deviation 44.6 H, RDW Coeff of Bobby 14.1, Plt Count 248, MPV 11.0, Immature Gran % (Auto) 0.300, Neut % (Auto) 52.9, Lymph % (Auto) 37.3, Mccone % (Auto) 6.6, Eos % (Auto) 2.2, Baso % (Auto) 0.7, Absolute Neuts (auto) 3.8, Absolute Lymphs (auto) 2.70, Nucleated RBC % 0, Sodium 141, Potassium 3.1 L, Chloride 106, Carbon Dioxide 19.8 L, Anion Gap 15, BUN 12, Creatinine 0.74, Estim Creat Clear Calc 80.25, Est GFR (MDRD) Non-Af 93, BUN/Creatinine Ratio 15.7, Glucose 87, Calcium 8.8, Total Bilirubin 0.20, Direct Bilirubin 0.09, AST 32, ALT 25, Alkaline Phosphatase 120 H, Troponin T High Sens 8 D, Total Protein 6.6, Albumin 4.0, Globulin 2.6, Lipase 29 10/11/24 17:15: Urine Color Straw, Urine Clarity Clear, Urine pH 6.5, Ur Specific [place] 1.010, Urine Protein 30 H, Urine Glucose (UA) Normal, Urine Ketones Negative, Urine Occult Blood Negative, Urine Nitrite Negative, Urine Bilirubin Negative, Urine Urobilinogen Normal, Ur Leukocyte Esterase 100 H, Urine RBC 0-5 SEEN, Urine WBC 5-10 SEEN, Ur Squamous Epith Cells 0-5 SEEN, Urine Bacteria 0 SEEN, Urine Mucus 0 SEEN 10/11/24 18:20: Troponin T Hi Sens 2 Hr 9, TSH 4.310 H Rhythm Strip Rhythm Strip: Sinus bradycardia Rate: 37 Ectopy: None Imaging Radiology Impression Brain CT 10/11/24 17:05 IMPRESSION: No acute intracranial abnormality. Mild generalized brain parenchymal volume loss and chronic microangiopathic changes, which appears somewhat advanced for patient's age. Reading Location: [facility] Chest X-Ray 10/11/24 18:13 IMPRESSION: NO SIGNIFICANT CHANGE SINCE THE PRIOR EXAM. Reading Location: [facility] Assessment & Plan Assessment/Plan (1) Acute diverticulitis: (2) Abdominal pain: QUALIFIERS: Abdominal location: generalized Qualified Code(s): R10.84 - Generalized abdominal pain (3) Pancreatic cyst: (4) Syncope: QUALIFIERS: Syncope type: unspecified Qualified Code(s): R55 - Syncope and collapse (5) Bradycardia, sinus: (6) Prolonged QT interval: (7) Chest pain: QUALIFIERS: Chest pain type: unspecified Qualified Code(s): R07.9 - Chest pain, unspecified (8) Hypokalemia: (9) Hypothyroidism: QUALIFIERS: Hypothyroidism type: unspecified Qualified Code(s): E03.9 - Hypothyroidism, unspecified (10) Obesity (BMI 30.0-34.9): (11) Hepatic steatosis: (12) History of gastric bypass: (13) Seizure disorder: (14) Altered level of consciousness: (15) Type II diabetes mellitus: QUALIFIERS: Diabetes mellitus complication status: with other specified complication 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 CT scan of the abdomen and pelvis that revealed probable mild/early Diverticulitis focally involving the descending colon complicated by persistent Abdominal Pain after Gastric Bypass with additional CT evidence of unchanged ~1.5 cm benign-appearing cyst in the pancreatic head/neck - Admit to PCU. Continue empiric IV ceftriaxone and IV metronidazole begun in ER. Give promethazine IM as needed for nausea and vomiting with ondansetron known to potentially prolong QT-interval. Give pantoprazole 40 mg IV daily. Keep n.p.o. except for ice chips, sips and medications for now until patient's condition improves. Give ketorolac IV as needed for pain or fever with listed anaphylactic allergy to morphine. Finally, we will consult gastroenterology to see this patient on-rounds in the AM for further recommendations with help appreciated in advance. 2. Syncopal event with Sinus Bradycardia with heart rate of ~45 bpm and Prolonged QT-interval plus Chest Pain complicating #1 in the setting of previously known recurrent syncope - Monitor closely on PCU. Check echocardiogram to evaluate LVEF. Serialize troponin. I personally spoke with the pharmacist on-call about the patient's medication list with no obvious culprit agent identified at this time. Finally, we will consult [facility] to see this patient on rounds in the a.m. further recommendations with help appreciated in advance. 3. Hypokalemia of 3.1 mmol/L present on admission compounding #1 & #2 - Give supplemental KCl and then recheck level in AM to confirm repletion. 4. Hypothyroidism; on levothyroxine with mildly elevated TSH of 4.31 present on admission adding to the medical complexity of #1 - #3 - Maintain levothyroxine and check Free T3/T4. 5. Obesity (class I); with BMI of 32.3 this admission with corresponding CT evidence of diffuse hepatic steatosis with history of Gastric Bypass adding to the burden of disease outlined from #1 - #4 - Weight loss will be recommended. This complicates her case and may hamper recovery. 6. Seizure disorder; levetiracetam BID with AMS and suspicion for possible seizure-induced syncope - Resume levetiracetam as previous and check EEG. Check MRI of the brain with abnormal findings on head CT. Finally, we will consult [facility] to see this patient on rounds in the a.m. for further recommendations with help appreciated in advance. 7. DM-2; of unknown control on metformin - Keep NPO for now and check FSBS q. 6 hours plus lowest-intensity SSI. Check hemoglobin A1c to objectively evaluate quality of diabetic control. 8. Essential hypertension; on losartan - Continue losartan as previous. 9. Hyperlipidemia; on rosuvastatin - Resume statin and check Lipid Profile. 10. History of gastric bypass with chronic abdominal pain; on dicyclomine QID prn - Noted. 11. Neuropathy; on gabapentin TID - Current therapy to be continued. 12. Depression with anxiety; on sertraline and olanzapine - Maintain home regimen. 13. Muscle spasms; on prn tizanidine - Resume prn tizanidine. 14. MARYCHUY; on ferrous sulfate BID - Stable with hemoglobin of 11.9 g/dL and MCV of 86.6 fL present on admission. 15. History of hernia; s/p repair - Noted. 16. OA; s/p lumbar fusion and neck surgery - We will give ketorolac IV as needed as outlined in #1. 17. DVT prophylaxis - Enoxaparin 40 mg sq daily plus SCD's. Total time: Approximately (but not less than) 75 minutes.
[2024-10-11 20:00] VITALS: BP 163/93; PULSE 47; RESP 16; O2SAT 94
--- NOTE | 2024-10-11 20:12 | ECHOD_ITS ---
Reason For Study Reason For Study: SYNCOPE Procedure This was a 2D Doppler, Color Flow transthoracic echocardiogram. Myocardial strain analysis was performed in this exam to aid in the assessment of cardiac function. Exam performed portable in patient room. Left Ventricle Normal LV size. Normal left ventricular thickness. Left ventricular systolic function is normal. The estimated ejection fraction is 60 %. Normal diastology for age. The global longitudinal strain = --21.4 % (normal). Right Ventricle Normal right ventricle. Normal RV size. Normal systolic function. TAPSE is 2 m. Atria The left atrium is mildly enlarged. Mitral Valve The mitral valve is structurally normal. No prolapse or stenosis seen. Moderate (2+) mitral valve insufficiency. PISA radius 0.5 cm, RV 26 ml, and ERO 0.1 cm2. Tricuspid Valve Normal tricuspid valve. Pulmonary artery systolic pressure is 39 mmHg. Mild tricuspid valve insufficiency. Aortic Valve The aortic valve is not well visualized in the short axis view. There is no aortic stenosis. Pulmonic Valve Trivial eccentric pulmonic valve insufficiency. Great Vessels Normal sized aortic root. The inferior vena cava is dilated. With respiratory variation. Pericardium/Pleural No pericardial effusion. MMode/2D Measurements & Calculations LVIDd: 5.2 cm IVSd: 1.0 cm LVOT diam: 2.0 cm LVIDs: 3.2 cm LVPWd: 0.89 cm LVOT area: 3.2 cm2 RVDd: 3.3 cm FS: 38.1 % asc Aorta Diam: 3.6 cm LAV(MOD-bp): 61.9 ml LVAd ap4: 25.2 cm2 LAV(MOD-bp) Indexed: 34.8 ml/m2 LVLd ap4: 7.4 cm LAV(MOD-sp2): 49.9 ml EDV(MOD-sp4): 72.7 ml LAV(MOD-sp4): 69.8 ml EDV(sp4-el): 72.8 ml LVAs ap4: 13.5 cm2 LVLs ap4: 6.0 cm ESV(MOD-sp4): 26.1 ml ESV(sp4-el): 25.8 ml EF(MOD-sp4): 64.1 % EF(sp4-el): 64.6 % LVAd ap2: 25.1 cm2 SV(MOD-sp4): 46.6 ml SV(MOD-sp2): 39.2 ml LVLd ap2: 7.7 cm SI(MOD-sp4): 26.2 ml/m2 SI(MOD-sp2): 22.0 ml/m2 EDV(MOD-sp2): 68.3 ml EDV(sp2-el): 69.4 ml LVAs ap2: 14.9 cm2 LVLs ap2: 6.6 cm ESV(MOD-sp2): 29.1 ml ESV(sp2-el): 28.7 ml EF(MOD-sp2): 57.4 % SV(sp4-el): 47.0 ml Ao sinus diam: 3.[address] Junction: 2.8 cm LA dimension(2D): 4.1 cm LA A4 area: 22.4 cm2 RA A4 area: 12.9 cm2 TAPSE: 2.4 cm Time Measurements MV dec time: 0.11 sec Doppler Measurements & Calculations MV E max keshawn: 95.1 cm/sec Lat Peak E' Keshawn: 9.7 cm/sec Med Peak E' Keshawn: 11.5 cm/sec MV A max keshawn: 77.5 cm/sec E/E' lat: 9.9 E/E' med: 8.3 MV E/A: 1.2 MV dec slope: 831.7 cm/sec2 Ao V2 max: 123.0 cm/sec LV V1 max: 85.2 cm/sec Ao max P.1 mmHg LV V1 max P.9 mmHg Ao V2 mean: 84.9 cm/sec LV V1 mean P.6 mmHg Ao mean P.3 mmHg LV V1 mean: 58.3 cm/sec Ao V2 VTI: 35.6 cm LV V1 VTI: 24.5 cm AV (velocity ratio): 0.69 SHANNAN(I,D): 2.2 cm2 SHANNAN(V,D): 2.2 cm2 SV(LVOT): 78.3 ml PA V2 max: 69.7 cm/sec TR max keshawn: 287.3 cm/sec TR max P.0 mmHg ECHO/Echo Complete Interpretation Summary The global longitudinal strain = --21.4 % (normal). Normal diastology for age. Left ventricular systolic function is normal. Estimated left ventricular ejecti on fraction 60% Normal LV size. Normal left ventricular thickness. Normal right ventricular size and function TAPSE is 2 m. At least moderate mitral regurgitation, with no evidence of prolapse or myxomat ous changes Pulmonary artery systolic pressure is 40 mmHg. Top normal or very mild pulmonar y hypertension Ordering Physician: Ramu Cornelius Referring Physician: EMMA HARMON Performed By: Kasey Freitas RDCS
--- NOTE | 2024-10-11 20:35 | EKG12_ITS ---
Test Reason : CHARLEE Blood Pressure : */* mmHG Vent. Rate : 49 BPM Atrial Rate : 49 BPM P-R Int : 184 ms QRS Dur : 100 ms QT Int : 514 ms P-R-T Axes : 73 8 3 degrees QTcB Int : 464 ms Sinus bradycardia Otherwise normal ECG When compared with ECG of 11-Oct-2024 17:20, MANUAL COMPARISON REQUIRED DATA IS UNCONFIRMED Confirmed by Ruslan Nicolas ([id number]), publication editor MATT ROJAS [id number]) on 10/13/2024 6:25:38 AM Referred By: DR Berkowitz Confirmed By: Ruslan Nicolas
[2024-10-11 20:44] VITALS: BMI 30.9
[2024-10-11 20:50] LABS: Pro- Brain NATRIURETIC PEPTIDE 497 pg/mL (<=900)
[2024-10-11 21:15] LABS: Free T3 2.8 pg/mL (2.18-3.98); Magnesium 2.1 mg/dL (1.5-2.2)
[2024-10-11 21:17] VITALS: BP 166/79; PULSE 52; RESP 17; TEMP 36.7; O2SAT 96
[2024-10-11 21:20] VITALS: PULSE 47; O2SAT 99
--- OUTSIDE RECORDS SUMMARY | 2024-10-11 21:25 | XMS RPT_ITS | CCD ---
Author Organization [facility] Care Team Providers Care Network Communications Engineer Name Role Phone Florencia Nina Primary Care Provider [phone] Paul Mckeon MD Unavailable [phone] EMMA HARMON DO Primary Care Physician [phone] Domonique Garcia PT Unavailable Unavailable Halko Emma ALEMAN Primary Care Provider [phone] TARA GARCIA Attending Tiera HARMON, EMMA Primary Care Unavailable HALEMMA PATEL Attending Unavailable HALKO, EMMA Primary Care Unavailable HALKO, EMMA Attending Unavailable HALKO, EMMA Primary Care Unavailable SONJA SALDAÑA DO Attending Unavailable HALKO, EMMA Primary Care Unavailable HALKO, EMMA Attending Unavailable HALKO, EMMA Primary Care Unavailable HALKO, EMMA Attending Unavailable HALKO, EMMA Primary Care Unavailable HALKO, EMMA Attending Unavailable HALKO, EMMA Primary Care Unavailable HALKO, EMMA Attending Unavailable HALKO, EMMA Primary Care Unavailable HALKO, EMMA Attending Unavailable HALKO, EMMA Primary Care Unavailable HALKO, EMMA Attending Unavailable HALKO, EMMA Primary Care Unavailable HALKO, EMMA Primary Care Unavailable CRISTAL NANCE DO Attending Unavailable DAVIDSON GÓMEZ MD Attending Unavail able HALKO, EMMA Primary Care Unavailable DHARMESH NORWOOD, DR HICKS Attending Unavailab le HALKO, EMMA Primary Care Unavailable HALKO, EMMA Primary Care Unavailable ASHERIN, SADINE Referring Unavailable NOHEMY COOLEYINE Attending Unavailable AAKASH GRANADO Attending Unavailable HALKO, EMMA Primary Care Unavailable EMLYSSA SALINAS Referring Unavailable POLLY PERAZA Consulting Unavailable RIGOBERTO ELLIOTT Admitting Unavailable JAYLYN STALEY Consulting Unavailable HALKO, EMMA Primary Care Unavailable TITO WELLS Attending Unavailable TITO WELLS Admitting Unavailable KLEBER HERNANDEZ Consulting Unavailable EMMA OGLESBY Consulting Unavailable ABDULAZIZ HENSLEY Admitting Unavailable HALKO, EMMA Primary Care Unavailable SVETA MONTERROSO Attending Unavailable HALKO, EMMA Primary Care Unavailable EZIO RHYS Attending Unavailable HALKO, EMMA Primary Care Unavailable DIN, PAOLAZAM Referring Unavailable OREDEIN, SADINE Attending Unavailable HALKO, EMMA Primary Care Unavailable OREDEIN, SADINE Referring Unavailable OREDEIN, SADINE Attending Unavailable HALKO, EMMA Primary Care Unavailable Benigno NORWOOD, Dr. Calderon Emergency Provider Eden ALEMAN, Dr. Mercer Primary Care Provider [phone] Benigno NORWOOD, Dr. Calderon Attending Provider Dr. Joseph Greene DO Emergency Provider HALKO DO, EMMA Attending Unavailable HALKO DO, EMMA Primary Care Unavailable HALKO DO, EMMA Primary Care Unavailable HALKO DO, EMMA Attending Unavailable HALKO DO, EMMA Attending Unavailable HALKO DO, EMMA Primary Care Unavailable HALKO DO, EMMA Attending Unavailable HALKO DO, EMMA Primary Care Unavailable LEE ANN ALEMAN, CRISTAL Christy Attending Unavailable HALKO DO, EMMA Primary Care Unavailable HALKO DO, EMMA Primary Care Unavailable DHARMESH NORWOOD, DR HICKS Attending Unavailab le HALKO DO, EMMA Primary Care Unavailable DALIA NORWOOD, DAVIDSON Wang Attending Unavail able HALKO DO, EMMA Primary Care Unavailable JAYLYN ZABALA MD Attending Unavailable HALKO DO, EMMA Primary Care Unavailable PINEDA DO, MARIANA Garvin Attending Unavailable HALKO DO, EMMA Attending Unavailable HALKO DO, EMMA Primary Care Unavailable HALKO DO, EMMA Primary Care Unavailable HALKO DO, EMMA Attending Unavailable HALKO DO, EMMA Attending Unavailable HALKO DO, EMMA Primary Care Unavailable HALKO DO, EMMA Primary Care Unavailable PIPPA WHITTEN MD Attending Unavailable Ramona DO, Dr. Ruiz Attending Provider Joseph Greene Attending Unavailable Halko, Emma Primary Care Unavailable PelaezKvng Attending Unavailable Halko, Emma Primary Care Unavailable PelaezKvng Attending Unavailable Halko, Emma Primary Care Unavailable Halko DO, Dr. Mercer Primary Care Provider [phone] Benigno NORWOOD, Dr. Calderon Attending Provider [phone] Kvng Pelaez MD Emergency Provider [phone] Wesly Diallo MD Emergency Provider Dr. Ramu Cornelius DO Admit Provider Unavail able Dr. Ramu Cornelius DO Attending Provider Unav ailable Allergies Allergy Classification Reported Allergen(s) Allergy Type Date of Onset Reaction(s) Facility Acetaminophen (3 sources) Acetaminophen Drug Allergy 08-05-19 Other [facility] diphenhydrAMINE (3 sources) diphenhydrAMINE Drug Allergy 05-16-19 [facility] Glycopeptides (antibiotic) (3 sources) Vancomycin Drug Allergy 05-16-19 [facility] Opioid Agonists (3 sources) Morphine Drug Allergy 05-16-19 [facility] (20 sources) diphenhydrAMINE Drug Allergy 12-06-19 15 Rash [facility] Work Phone: (20 sources) Morphine; Translations: [morphine] Drug Allergy 12-06-19 15 Rash, Feeling of throat tightness (finding) [facility] Work Phone: (20 sources) Vancomycin; Translations: [vancomycin] Drug Allergy 12-06-19 15 Rash, Throat symptom (finding) [facility] Work Phone: (2 sources) Adhesive Tape Propensity to adverse reactions to drug 10-27-19 20 [place], [place] (20 sources) diphenhydrAMINE; Translations: [diphenhydramine] Drug Allergy 05-21-19 25 Feeling of throat tightness (finding) [facility] (15 sources) Acetaminophen / HYDROcodone; Translations: [acetaminophen-hyd rocodone] Drug Allergy [facility] (6 sources) Acetaminophen Drug Allergy 08-05-19 24 Other [facility] (1 source) diphenhydrAMINE Drug Allergy 08-18-19 [facility] (1 source) Morphine Drug Allergy 08-18-19 [facility] (1 source) Vancomycin Drug Allergy 08-18-19 [facility] Medications Current Medications Medication Drug Class(es) Dates Sig (Normalized) Sig (Original) Acetaminophen / oxyCODONE (2 sources) Opioid Agonist Start: 11-03-2019 oxyCODONE-acetamin ophen (PERCOCET) 5-325 MG per tablet 1 tablet Start: 11-03-2019 End: 11-10-2019 take 1 tablet by mouth every six hours as needed for pain, then take 1 tablet by mouth as needed for pain oxyCODONE-acetaminophen (PERCOCET) 5-325 MG per tablet Indications: Localized adiposity Take 1 tablet by mouth every 6 hours as needed for Pain for up to 7 days. Intended supply: 7 days. Take lowest dose possible to manage pain 27 tablet 0 11/03/2019 11/10/2019 Active amoxicillin 875 mg / clavulanate 125 mg oral tablet (2 sources) Penicillin-class Antibacterial Start: 09-14-2023 End: 09-24-2023 take 1 tablet by mouth every twelve hours amoxicillin-clavulanate 875 mg-125 mg oral tablet 1 tab(s), Oral, q12h, X 10 day(s), # 20 tab(s), 0 Refill(s), 09/24/23 5:23:00 PM EDT, Pharmacy: [facility]acy [id number], 157, cm, 08/14/23 15:46:00 EDT, Height, 78.5, kg, 09/14/23 17:09:00 EDT, Dosing Weight Start Date: 09/14/23 Stop Date: 09/24/23 Status: Ordered Start: 02-12-2021 End: 02-22-2021 take 1 tablet by mouth every twelve hours amoxicillin-clavulanate 875 mg-125 mg or al tablet 1 tab(s), Oral, q12h, delayed rx, to fill on or after 02/18/21, X 10 day(s), # 20 tab(s), 0 Refill(s), 02/22/21 8:57:00 EST, Pharmacy: [facility]/pharmacy #[id number], 157, cm, 02/12/21 8:16:00 EST, Height, 70.5, kg, 02/12/21 8:16:00 EST, Dosing Weight Start Date: 02/12/21 Stop Date: 02/22/21 Status: Ordered aspirin 81 mg delayed release oral tablet (20 sources) Platelet Aggregation Inhibitor, Nonsteroidal Anti-inflammatory Drug Start: 05-19-2023 End: 05-18-2024 aspirin 81 mg oral delayed release tablet Dose : 81 mg = 1 tab(s), Oral, Daily, 0 Refill(s) Start Date: 05/28/23 Status: Ordered Repeat number: 1 biotin 1 mg oral tablet (20 sources) Start: 07-08-2024 End: 01-04-2025 biotin 1000 mcg oral tablet Dose : 1,000 mcg = 1 tab(s), Oral, qDay, # 90 tab(s), 1 Refill(s), [id number] 157.5, cm, 07/08/24 13:55:00 EDT, Height, kg, 07/08/24 13:55:00 EDT, Dosing Weight Start Date: 07/08/24 Stop Date: 01/04/25 Status: Ordered Quantity: 90.0 Unit: tab(s) Repeat number: 2 Start: 03-11-2023 End: 05-10-2024 biotin 1000 mcg oral tablet Dose : 1,000 mcg = 1 tab(s), Oral, qDay, # 90 tab(s), 1 Refill(s), [id number] 157.5, cm, 11/12/23 9:00:00 EDT, Height, kg, 11/12/23 9:00:00 EDT, Dosing Weight Start Date: 11/12/23 Stop Date: 05/10/24 Status: Ordered Quantity: 90.0 Unit: tab(s) Repeat number: 2 Start: 02-12-2021 End: 11-09-2021 biotin 1000 mcg oral tablet Dose : 1,000 mcg = 1 tab(s), Oral, qDay, # 90 tab(s), 1 Refill(s), [id number] 157, cm, 05/13/21 9:00:00 EDT, Height, kg, 05/13/21 9:00:00 EDT, Dosing Weight Start Date: 05/13/21 Stop Date: 11/09/21 Status: Ordered Start: 01-17-2020 End: 07-15-2020 biotin 1000 mcg oral tablet Dose : 1,000 mcg = 1 tab(s), Oral, qDay, # 90 tab(s), 1 Refill(s), [id number] 157, cm, 01/17/20 14:48:00 EST, Height, kg, 01/17/20 14:48:00 EST, Dosing Weight Start Date: 01/17/20 Stop Date: 07/15/20 Status: Ordered Start: 09-16-2019 BIOTIN 5 MG CA PS 1 capsule once daily BIOTIN [id number] Josie Gómez Biotin 5 MG tabl et dispersible Take 5,000 mcg by mouth in the morning. Active Biotin 5000 MCG CAPS Take by mouth 0 Suspended cefdinir 300 mg oral capsule (1 source) Cephalosporin Antibacterial Start: 09-11-2021 End: 09-16-2021 cefdinir 300 mg oral capsule Dose : 300 mg = 1 cap(s), Oral, q12h, X 5 day(s), # 10 cap(s), 0 Refill(s), 09/16/21 11:24:00 EDT, Pharmacy: [facility]pharmacy [id number], Urine leukocytes Bilirubin in urine, 157, cm, 09/11/21 10:56:00 EDT, Height, 73.2 Start Date: 09/11/21 Stop Date: 09/16/21 Status: Ordered cholecalciferol 0.05 mg oral capsule (20 sources) Vitamin D Start: 10-11-2024 take 1 capsule by mouth once daily Cholecalciferol (Vitamin D3) 50 mcg (2,000 unit) capsule Active 100 ug PO DAILY October 11, 2024 12:00am Start: 07-08-2024 End: 01-04-2025 cholecalciferol 50 mcg (2000 intl units) oral capsule Dose : 100 mcg = 2 cap(s), Oral, qDay, # 180 cap(s), 1 Refill(s), Pharmacy: [facility]/pharmacy #[id number], 157.5, cm, 07/08/24 13:55:00 EDT, Height, kg, 07/08/24 13:55:00 EDT, Dosing Weight Start Date: 07/08/24 Stop Date: 01/04/25 Status: Ordered Quantity: 180.0 Unit: cap(s) Repeat number: 2 Start: 10-30-2023 End: 11-01-2023 take 2000 [IU] by mouth once daily 2,000 Units, Oral, Daily, First dose on Thu10/30/23 at 1415 Start: 05-17-2023 End: 05-19-2023 take 2000 [IU] by mouth once daily 2,000 Units, Oral, Daily, First dose on 05/17/23 at 0800 Start: 03-16-2023 End: 05-10-2024 cholecalciferol 50 mcg (2000 intl units) oral capsule Dose : 100 mcg = 2 cap(s), Oral, qDay, # 180 cap(s), 1 Refill(s), Pharmacy: [facility]/pharmacy #[id number], 157.5, cm, 11/12/23 9:00:00 EDT, Height, kg, 11/12/23 9:00:00 EDT, Dosing Weight Start Date: 11/12/23 Stop Date: 05/10/24 Status: Ordered Quantity: 180.0 Unit: cap(s) Repeat number: 2 Start: 03-16-2023 End: 09-12-2023 cholecalciferol 50 mcg (2000 intl units) oral capsule Dose : 100 mcg = 2 cap(s), Oral, qDay, # 180 cap(s), 1 Refill(s), Pharmacy: [facility]/pharm[facility] #[id number], 157.5, cm, 03/11/23 9:33:00 EST, Height, kg, 03/11/23 9:33:00 EST, Dosing Weight Start Date: 03/16/23 Stop Date: 09/12/23 Status: Ordered Start: 05-13-2021 End: 03-19-2022 cholecalciferol 50 mcg (2000 intl units) oral capsule Dose : 2,000 International_Unit = 1 cap(s), Oral, qDay, # 90 cap(s), 1 Refill(s), Pharmacy: [facility]/pharmacy #[id number], 157, cm, 09/20/21 15:52:00 EDT, Height, kg, 09/20/21 15:52:00 EDT, Dosing Weight Start Date: 09/20/21 Stop Date: 03/19/22 Status: Ordered Start: 02-12-2021 End: 08-11-2021 cholecalciferol 50 mcg (2000 intl units) oral capsule Dose : 2,000 International_Unit = 1 cap(s), Oral, qDay, # 90 cap(s), 1 Refill(s), Pharmacy: [facility]/pharmacy #[id number], 157, cm, 12/14/21 8:16:00 EST, Height, kg, 02/12/21 8:16:00 EST, Dosing Weight Start Date: 02/12/21 Stop Date: 08/11/21 Status: Ordered Start: 09-27-2020 End: 03-26-2021 cholecalciferol 50 mcg (2000 intl units) oral capsule Dose : 2,000 International_Unit = 1 cap(s), Oral, qDay, # 90 cap(s), 1 Refill(s), Pharmacy: [facility]/pharmacy #[id number], 157.5, cm, 05/21/20 8:26:00 EDT, Height, kg, 05/21/20 8:26:00 EDT, Dosing Weight Start Date: 09/27/20 Stop Date: 03/26/21 Status: Ordered Start: 10-22-2017 DIALYVITE SHILO MIN D3 MAX 1.25 MG (80198 UT) TABS 1 tablet as directed CHOLECALCIFEROL [id number] Josie Gómez Co Q-10 100 mg oral capsule (11 sources) Start: 07-08-2024 Co Q-10 100 mg oral capsule Dose : 100 mg = 1 cap(s), Oral, Daily, # 90 cap(s), 1 Refill(s), [id number] 157.5, cm, 07/08/24 13:55:00 EDT, Height, kg, 07/08/24 13:55:00 EDT, Dosing Weight Start Date: 07/08/24 Status: Ordered Quantity: 90.0 Unit: cap(s) Repeat number: 2 Start: 11-12-2023 Co Q-10 100 mg oral capsule Dose : 100 mg = 1 cap(s), Oral, Daily, # 90 cap(s), 1 Refill(s), Pharmacy: [facility]/pharmacy #[id number], 157.5, cm, 11/12/23 9:00:00 EDT, Height, kg, 11/12/23 9:00:00 EDT, Dosing Weight Start Date: 11/12/23 Status: Ordered Quantity: 90.0 Unit: cap(s) Repeat number: 2 Start: 11-12-2023 Co Q-10 100 mg oral capsule Dose : 100 mg = 1 cap(s), Oral, Daily, # 90 cap(s), 1 Refill(s), Pharmacy: [facility]/pharmacy #[id number], 157.5, cm, 11/12/23 9:00:00 EDT, Height, kg, 11/12/23 9:00:00 EDT, Dosing Weight Start Date: 11/12/23 Status: Ordered Start: 07-22-2023 Co Q-10 100 mg oral capsule Dose : 100 mg = 1 cap(s), Oral, Daily, # 90 cap(s), 1 Refill(s), Pharmacy: [facility]/pharm[facility] #[id number], 157, cm, 07/22/23 9:38:00 EDT, Height, kg, 07/22/23 9:38:00 EDT, Dosing Weight Start Date: 07/22/23 Status: Ordered Start: 05-28-2023 Co Q-10 100 mg oral capsule Dose : 100 mg = 1 cap(s), Oral, Daily, # 90 cap(s), 1 Refill(s), Pharmacy: [facility]/pharmacy #[id number], 157.5, cm, 05/28/23 14:08:00 EDT, Height, kg, 05/28/23 14:08:00 EDT, Dosing Weight Start Date: 05/28/23 Status: Ordered Coricidin HBP Chest Congestion & Cough 10 mg-200 mg oral capsule (1 source) Start: 01-08-2021 End: 01-13-2021 take 1 capsule by mouth every four hours as needed for cough Coricidin HBP Chest Congestion & Cough 10 mg-200 mg oral capsule Dose = 2 cap(s), Oral, q4h, PRN for cough, X 5 day(s), # 20 cap(s), 0 Refill(s), Pharmacy: [facility]/pharmacy #[id number], Respiratory tract congestion with cough, 156, cm, 01/08/21 9:02:00 EST, Height, kg, 01/08/21 9:02:00 EST, Dosing Weight Start Date: 01/08/21 Stop Date: 01/13/21 Status: Ordered Dextromethorphan / Promethazine (1 source) Phenothiazine, Uncompetitive B-aqozed-Y-aspartate Receptor Antagonist, Sigma-1 Agonist Start: 02-12-2021 End: 02-26-2021 take 1 dose by mouth every six hours as needed for cough dextromethorphan- promethazine 15 mg-6.25 mg/5 mL oral syrup Dose = 5 mL, Oral, q6h, PRN for cough, X 7 day(s), # 250 mL, 1 Refill(s), Pharmacy: [facility]/pharmacy #[id number], 157, cm, 02/12/21 8:16:00 EST, Height, kg, 02/12/21 8:16:00 EST, Dosing Weight Start Date: 02/12/21 Stop Date: 02/26/21 Status: Ordered diazePAM 5 mg oral tablet (1 source) Benzodiazepine Start: 06-17-2023 End: 06-18-2023 Valium 5 mg oral tablet Dose : 5 mg = 1 tab(s), Oral, prep pharm, Bdw-uulopweue-ujc ient may take 1 tab(s)/dose needs ride to and from MRI; take 30 minutes prior, X 1 day(s), # 1 tab(s), 0 Refill(s), 06/18/23 8:05:00 AM EDT, Pharmacy: [facility]/pharmacy #[id number], Claustrophobia, 157.5, cm, 05/28/23 14:08:00 EDT, Height, 73.3, kg, 05/28/23 14:08:00 EDT, Dosing Weight Start Date: 06/17/23 Stop Date: 06/18/23 Status: Ordered dicyclomine hydrochloride 20 mg oral tablet (7 sources) Anticholinergic Start: 06-05-2024 End: 10-06-2024 take 1 tablet by mouth four times daily as needed for pain Dicyclomine 20 mg tablet Active 20 mg PO 4 TIMES DAILY NEEDED as needed for abdominal pain June 05, 2024 12:00am Start: 03-04-2024 End: 04-03-2024 dicyclomine 20 mg oral table t Dose : 20 mg = 1 tab(s), Oral, QID, PRN abdominal pain/diarrhea, # 120 tab(s), 0 Refill(s), Pharmacy: [facility]/pharmacy #[id number], 154.94, cm, 01/20/24 9:18:00 EST, Height, kg, 01/20/24 9:18:00 EST, Dosing Weight Start Date: 03/04/24 Stop Date: 04/03/24 Status: Ordered Quantity: 120.0 Unit: tab(s) Repeat number: 1 Start: 12-31-2023 End: 01-30-2024 dicyclomine 20 mg oral table t Dose : 20 mg = 1 tab(s), Oral, QID, PRN abdominal pain/diarrhea, # 120 tab(s), 0 Refill(s), Pharmacy: [facility]/pharmacy #[id number], 157.5, cm, 12/31/23 10:53:00 EDT, Height, kg, 12/31/23 10:53:00 EDT, Dosing Weight Start Date: 12/31/23 Stop Date: 01/30/24 Status: Ordered DME MISCellaneous (20 sources) Start: 03-19-2022 DME MISCellane ous See Instructions, dx I10; dispense one automated sphygmomanometer with supplies., # 1 EA, 0 Refill(s), Pharmacy: [facility] #40, 157, cm, 02/06/22 15:26:00 EST, Height, 71.3, kg, 02/06/22 15:26:00 EST, Dosing Weight Start Date: 03/19/22 Status: Ordered Quantity: 1.0 Unit: EA Repeat number: 1 Start: 03-19-2022 DME MISCellane ous See Instructions, dx I10; dispense one automated sphygmomanometer with supplies., # 1 EA, 0 Refill(s), Pharmacy: [facility] #40, 157, cm, 02/06/22 15:26:00 EST, Height, 71.3, kg, 02/06/22 15:26:00 EST, Dosing Weight Start Date: 03/19/22 Status: Ordered Start: 08-28-2021 DME MISCellane ous See Instructions, dispense one sling and swath; dx M75.100, # 1 EA, 0 Refill(s), Rotator cuff tear, 72.5 Start Date: 08/28/21 Status: Ordered Quantity: 1.0 Unit: EA Repeat number: 1 Indications: Unspecified rotator cuff tear or rupture of unspecified shoulder, not specified as traumatic; Start: 08-28-2021 DME MISCellane ous See Instructions, dispense one sling and swath; dx M75.100, # 1 EA, 0 Refill(s), Rotator cuff tear, 72.5 Start Date: 08/28/21 Status: Ordered Quantity: 1.0 Unit: EA Repeat number: 1 Indication: Unspecified rotator cuff tear or rupture of unspecified shoulder, not specified as traumatic Start: 08-28-2021 DME MISCellane ous See Instructions, dispense one sling and swath; dx M75.100, # 1 EA, 0 Refill(s), Rotator cuff tear, 72.5 Start Date: 08/28/21 Status: Ordered docusate sodium 100 mg oral capsule (20 sources) Start: 10-11-2024 take 1 capsule by mouth twice daily Docusate Sodium 100 mg capsule Active 100 mg PO TWICE A DAY October 11, 2024 12:00am Start: 07-08-2024 End: 01-04-2025 DOK 100 mg oral capsule Dose : 100 mg = 1 cap(s), Oral, BID, # 180 cap(s), 1 Refill(s), Pharmacy: [facility]/pharmacy #[id number], 157.5, cm, 07/08/24 13:55:00 EDT, Height, kg, 07/08/24 13:55:00 EDT, Dosing Weight Start Date: 07/08/24 Stop Date: 01/04/25 Status: Ordered Quantity: 180.0 Unit: cap(s) Repeat number: 2 Start: 09-27-2020 End: 05-10-2024 DOK 100 mg oral capsule Dose : 100 mg = 1 cap(s), Oral, BID, # 180 cap(s), 1 Refill(s), Pharmacy: [facility]/pharmacy #[id number], 157.5, cm, 11/12/23 9:00:00 EDT, Height, kg, 11/12/23 9:00:00 EDT, Dosing Weight Start Date: 11/12/23 Stop Date: 05/10/24 Status: Ordered Quantity: 180.0 Unit: cap(s) Repeat number: 2 Start: 11-03-2019 End: 12-03-2019 take 1 capsule by mouth twice daily docusate sodium (COLACE) 100 MG capsule Take 1 capsule by mouth 2 times daily 60 capsule 0 11/03/2019 12/03/2019 Active ferrous sulfate 325 mg oral tablet (20 sources) Start: 07-08-2024 End: 01-04-2025 take 1 tablet by mouth twice daily Ferrous Sulfate 325 mg (65 mg iron) tablet Active 325 mg PO TWICE A DAY August 17, 2024 12:00am Start: 03-25-2018 End: 05-10-2024 ferrous sulfate 325 mg (65 m g elemental iron) oral tablet Dose : 325 mg = 1 tab(s), Oral, BID, Take with food., # 180 tab(s), 1 Refill(s), Pharmacy: [id number], 157.5, cm, 11/12/23 9:00:00 EDT, Height, kg, 11/12/23 9:00:00 EDT, Dosing Weight Start Date: 11/12/23 Stop Date: 05/10/24 Status: Ordered Quantity: 180.0 Unit: tab(s) Repeat number: 2 gabapentin 300 mg oral capsule (4 sources) Anti-epileptic Agent Start: 08-03-2024 End: 09-02-2024 take 1 capsule by mouth three times daily Gabapentin 300 mg capsule Active 300 mg PO THREE TIMES A DAY August 17, 2024 12:00am Start: 11-03-2019 End: 11-03-2019 gabapentin (NEURONTIN) capsu le 300 mg hydrOXYzine hydrochloride 25 mg oral tablet (10 sources) Antihistamine Start: 11-12-2023 End: 10-13-2024 Hydroxyzine Hcl 25 mg tablet Active 25 mg PO NEEDED June 05, 2024 12:00am Start: 08-06-2023 End: 08-07-2023 take 1 capsule by mouth every eight hours as needed for anxiety hydrOXYzine pamoate (Vistaril) capsule 25 mg Lactobacillus acidophilus (20 sources) Start: 07-08-2024 End: 01-04-2025 take 1 tablet by mouth once daily lactobacillus acidophilus oral tablet Dose = 1 tab(s), Oral, qDay, # 90 tab(s), 1 Refill(s), Pharmacy: [facility] #[id number], 157.5, cm, 07/08/24 13:55:00 EDT, Height, kg, 07/08/24 13:55:00 EDT, Dosing Weight Start Date: 07/08/24 Stop Date: 01/04/25 Status: Ordered Quantity: 90.0 Unit: tab(s) Repeat number: 2 Start: 11-12-2023 End: 05-10-2024 take 1 tablet by mouth once daily lactobacillus acidophilus oral tablet Dose = 1 tab(s), Oral, qDay, # 90 tab(s), 1 Refill(s), Pharmacy: [id number], 157.5, cm, 11/12/23 9:00:00 EDT, Height, kg, 11/12/23 9:00:00 EDT, Dosing Weight Start Date: 11/12/23 Stop Date: 05/10/24 Status: Ordered Quantity: 90.0 Unit: tab(s) Repeat number: 2 Start: 11-12-2023 End: 05-10-2024 take 1 tablet by mouth once daily lactobacillus acidophilus oral tablet Dose = 1 tab(s), Oral, qDay, # 90 tab(s), 1 Refill(s), [id number] 157.5, cm, 11/12/23 9:00:00 EDT, Height, kg, 11/12/23 9:00:00 EDT, Dosing Weight Start Date: 11/12/23 Stop Date: 05/10/24 Status: Ordered Start: 07-22-2023 End: 01-18-2024 take 1 tablet by mouth once daily lactobacillus acidophilus oral tablet Dose = 1 tab(s), Oral, qDay, # 90 tab(s), 1 Refill(s), [id number] 157, cm, 07/22/23 9:38:00 EDT, Height, kg, 07/22/23 9:38:00 EDT, Dosing Weight Start Date: 07/22/23 Stop Date: 01/18/24 Status: Ordered Start: 03-11-2023 End: 09-07-2023 take 1 tablet by mouth once daily lactobacillus acidophilus oral tablet Dose = 1 tab(s), Oral, qDay, # 90 tab(s), 1 Refill(s), Pharmacy: [id number], 157.5, cm, 03/11/23 9:33:00 EST, Height, kg, 03/11/23 9:33:00 EST, Dosing Weight Start Date: 03/11/23 Stop Date: 09/07/23 Status: Ordered Start: 05-13-2021 End: 11-09-2021 take 1 tablet by mouth once daily lactobacillus acidophilus oral tablet Dose = 1 tab(s), Oral, qDay, # 90 tab(s), 1 Refill(s), [id number] 157, cm, 05/13/21 9:00:00 EDT, Height, kg, 05/13/21 9:00:00 EDT, Dosing Weight Start Date: 05/13/21 Stop Date: 11/09/21 Status: Ordered Start: 02-12-2021 End: 08-11-2021 take 1 tablet by mouth once daily lactobacillus acidophilus oral tablet Dose = 1 tab(s), Oral, qDay, # 90 tab(s), 1 Refill(s), [id number] 157, cm, 02/12/21 8:16:00 EST, Height, kg, 02/12/21 8:16:00 EST, Dosing Weight Start Date: 02/12/21 Stop Date: 08/11/21 Status: Ordered Start: 09-27-2020 End: 03-26-2021 take 1 tablet by mouth once daily lactobacillus acidophilus oral tablet Dose = 1 tab(s), Oral, qDay, # 90 tab(s), 1 Refill(s), Pharmacy: [facility] [id number], 157.5, cm, 05/21/20 8:26:00 EDT, Height, kg, 05/21/20 8:26:00 EDT, Dosing Weight Start Date: 09/27/20 Stop Date: 03/26/21 Status: Ordered levETIRAcetam 500 mg oral tablet (20 sources) Start: 06-05-2024 take 1 tablet by mouth twice daily Levetiracetam 500 mg tablet Active 500 mg PO TWICE A DAY June 05, 2024 12:00am Start: 08-14-2023 End: 11-01-2023 levETIRAcetam 500 mg oral ta blet Dose : 500 mg = 1 tab(s), Oral, BID, # 180 tab(s), 0 Refill(s) Start Date: 08/14/23 Status: Ordered Quantity: 180.0 Unit: tab(s) Repeat number: 1 Start: 08-07-2023 End: 08-07-2023 levETIRAcetam (Keppra) table t 500 mg Start: 08-07-2023 End: 08-07-2023 levETIRAcetam (Keppra) table t 500 mg Start: 08-07-2023 End: 08-06-2024 take 1 tablet by mouth twice daily levETIRAcetam (Keppra) 500 MG tablet Take 1 tablet (500 mg) by mouth 2 times daily. 60 tablet 11 08/07/2023 08/06/2024 Active Start: 08-06-2023 End: 08-07-2023 levETIRAcetam in sodium chlo ride (Keppra) IVPB 500 mg levothyroxine sodium 0.112 mg oral tablet (20 sources) l-Thyroxine Start: 07-08-2024 levothyroxine 112 mcg (0.112 mg) oral tablet Dose : 112 mcg = 1 tab(s), Oral, qDay, # 90 tab(s), 1 Refill(s), Pharmacy: [facility]acy [id number], 157.5, cm, 07/08/24 13:55:00 EDT, Height, kg, 07/08/24 13:55:00 EDT, Dosing Weight Start Date: 07/08/24 Status: Ordered Quantity: 90.0 Unit: tab(s) Repeat number: 2 Start: 06-05-2024 take 1 tablet by jasmin once daily Levothyroxine 112 mcg tablet Active 112 ug PO DAILY June 05, 2024 12:00am Start: 11-12-2023 levothyroxine 112 mcg (0.112 mg) oral tablet Dose : 112 mcg = 1 tab(s), Oral, qDay, # 90 tab(s), 1 Refill(s), Pharmacy: [facility]/pharmacy #[id number], 157.5, cm, 11/12/23 9:00:00 EDT, Height, kg, 11/12/23 9:00:00 EDT, Dosing Weight Start Date: 11/12/23 Status: Ordered Quantity: 90.0 Unit: tab(s) Repeat number: 2 Start: 10-31-2023 End: 11-01-2023 take 100 ug by mouth once daily before breakfast 100 mcg, Oral, Daily before breakfast, First dose on 10/31/23 at 0600 Start: 08-06-2023 End: 08-07-2023 take 100 ug by mouth once daily before breakfast 100 mcg, Oral, Daily before breakfast, First dose on Prema 08/06/23 at 0600 Start: 07-22-2023 levothyroxine 112 mcg (0.112 mg) oral tablet Dose : 112 mcg = 1 tab(s), Oral, qDay, # 90 tab(s), 1 Refill(s), Pharmacy: [facility]pharmacy #[id number], 157, cm, 07/22/23 9:38:00 EDT, Height, kg, 07/22/23 9:38:00 EDT, Dosing Weight Start Date: 07/22/23 Status: Ordered Start: 07-09-2023 levothyroxine 112 mcg (0.112 mg) oral tablet Dose : 112 mcg = 1 tab(s), Oral, qDay, # 90 tab(s), 1 Refill(s), Pharmacy: [facility]/pharmacy #[id number], 157, cm, 07/02/23 8:38:00 EDT, Height, kg, 07/02/23 8:35:00 EDT, Dosing Weight Start Date: 07/09/23 Status: Ordered Start: 06-17-2023 levothyroxine 112 mcg (0.112 mg) oral tablet Dose : 112 mcg = 1 tab(s), Oral, qDay, new dose, # 90 tab(s), 0 Refill(s), Pharmacy: [facility]pharmacy #[id number], 157.5, cm, 05/28/23 14:08:00 EDT, Height, kg, 05/28/23 14:08:00 EDT, Dosing Weight Start Date: 06/17/23 Status: Ordered Start: 05-19-2023 End: 05-19-2023 take 100 ug by mouth once daily before breakfast 100 mcg, Oral, Daily before breakfast, First dose on 05/19/23 at 0700 Start: 05-17-2023 End: 05-18-2023 levothyroxine (Synthroid, Le voxyl) tablet 88 mcg Start: 03-16-2023 levothyroxine 100 mcg (0.1 mg) oral tablet Dose : 100 mcg = 1 tab(s), Oral, qDay, new dose, # 90 tab(s), 0 Refill(s), [id number] 157.5, cm, 03/11/23 9:33:00 EST, Height, kg, 03/11/23 9:33:00 EST, Dosing Weight Start Date: 03/16/23 Status: Ordered Start: 05-13-2021 levothyroxine 88 mcg (0.088 mg) oral tablet Dose : 88 mcg = 1 tab(s), Oral, qDay, # 90 tab(s), 1 Refill(s), Pharmacy: [facility]/pharmacy #[id number], 157, cm, 05/13/21 9:00:00 EDT, Height, kg, 05/13/21 9:00:00 EDT, Dosing Weight Start Date: 05/13/21 Status: Ordered Start: 02-12-2021 levothyroxine 88 mcg (0.088 mg) oral tablet Dose : 88 mcg = 1 tab(s), Oral, qDay, # 90 tab(s), 1 Refill(s), [id number] 157, cm, 02/12/21 8:16:00 EST, Height, kg, 02/12/21 8:16:00 EST, Dosing Weight Start Date: 02/12/21 Status: Ordered Start: 12-14-2020 levothyroxine 88 mcg (0.088 mg) oral tablet Dose : 88 mcg = 1 tab(s), Oral, qDay, # 90 tab(s), 0 Refill(s), Pharmacy: [facility]/pharmacy #[id number], 156, cm, 11/29/20 15:20:00 EDT, Height, kg, 11/29/20 15:20:00 EDT, Dosing Weight Start Date: 12/14/20 Status: Ordered Start: 09-27-2020 End: 03-26-2021 levothyroxine 75 mcg (0.075 mg) oral tablet Dose : 75 mcg = 1 tab(s), Oral, qDay, # 90 tab(s), 1 Refill(s), Pharmacy: [facility]/pharmacy #[id number], 157.5, cm, 05/21/20 8:26:00 EDT, Height, kg, 05/21/20 8:26:00 EDT, Dosing Weight Start Date: 09/27/20 Stop Date: 03/26/21 Status: Ordered Start: 09-15-2018 take 1 tablet by jasmin th once daily levothyroxine (SYNTHROID) 75 MCG tablet Take 1 tablet by mouth Daily 30 tablet 0 09/15/2018 Suspended take 1 capsule by mo [facility] once daily before breakfast levothyroxine (Tirosint) 100 MCG capsule Take 100 mcg by mouth every morning (before breakfast). Active losartan potassium 25 mg oral tablet (20 sources) Angiotensin 2 Receptor Preston Start: 06-05-2024 End: 01-04-2025 take 1 tablet by mouth once daily Losartan 25 mg tablet Active 25 mg PO DAILY June 05, 2024 12:00am Start: 05-17-2023 End: 05-19-2024 take 50 mg by mouth once daily 50 mg, Oral, Daily, Fir st dose on Thu10/30/23 at 1415 Start: 09-16-2019 End: 05-10-2024 losartan 25 mg oral tablet D ose : 25 mg = 1 tab(s), Oral, qDay, # 90 tab(s), 1 Refill(s), Pharmacy: [facility]/pharmacy #[id number], 157.5, cm, 11/12/23 9:00:00 EDT, Height, kg, 11/12/23 9:00:00 EDT, Dosing Weight Start Date: 11/12/23 Stop Date: 05/10/24 Status: Ordered Quantity: 90.0 Unit: tab(s) Repeat number: 2 Start: 09-16-2019 LOSARTAN POTAS SIUM 25 MG TABS 1 tablet once daily LOSARTAN POTASSIUM [id number] Josie Gómez Start: 09-15-2018 take 1 tablet by jasmin th once daily losartan (COZAAR) 50 MG tablet Indications: Essential hypertension Take 1 tablet by mouth daily 30 tablet 0 09/15/2018 Suspended metFORMIN hydrochloride 1000 mg oral tablet (4 sources) Biguanide Start: 10-08-2015 take 1 tablet by mouth once daily Metformin 1,000 MG tablet,ER jane.retention 24 hr Active 1000 mg PO DAILY October 08, 2015 12:00am Multivitamin preparation (20 sources) Start: 2020 take 1 tablet by mouth once daily Multivitamin Dose = 1 tab(s), Oral, Daily, 0 Refill(s) Start Date: 03/27/20 Status: Ordered Repeat number: 1 Start: 2020 take 1 tablet by jasmin th once daily Multivitamin Dose = 1 tab(s), Oral, Daily, 0 Refill(s) Start Date: 03/27/20 Status: Ordered OLANZapine 10 mg oral tablet (7 sources) Atypical Antipsychotic Start: 06-05-2024 take 1 tablet by mouth once daily Olanzapine 10 mg tablet Active 10 mg PO DAILY June 05, 2024 12:00am Start: 03-04-2024 End: 04-03-2024 OLANZapine 5 mg oral tablet Dose : 5 mg = 1 tab(s), Oral, qHS, # 30 tab(s), 0 Refill(s), Pharmacy: [facility]/pharmacy #[id number], 154.94, cm, 01/20/24 9:18:00 EST, Height, kg, 01/20/24 9:18:00 EST, Dosing Weight Start Date: 03/04/24 Stop Date: 04/03/24 Status: Ordered Quantity: 30.0 Unit: tab(s) Repeat number: 1 Start: 12-31-2023 End: 01-30-2024 OLANZapine 5 mg oral tablet Dose : 5 mg = 1 tab(s), Oral, qHS, # 30 tab(s), 0 Refill(s), Pharmacy: [facility]/pharmacy #[id number], 157.5, cm, 12/31/23 10:53:00 EDT, Height, kg, 12/31/23 10:53:00 EDT, Dosing Weight Start Date: 12/31/23 Stop Date: 01/30/24 Status: Ordered PEG-3350 with Electrolytes (Eqv-GoLYTELY) oral powder for reconstitution (4 sources) Start: 01-13-2024 PEG-3350 with Electrolytes (Eqv-GoLYTELY) oral powder for reconstitution See Instructions, Take as directed starting 1 day before colonoscopy. Follow instructions as provided by your GI provider at [place]., # 1 EA, 0 Refill(s), Pharmacy: [facility]/pharmacy #[id number], Screening for colon cancer, 157.5, cm, 01/13/24 10:02:00 EST, Height, kg, 01/13/24 10:02:00 EST, Dosing Weight Start Date: 01/13/24 Status: Ordered Quantity: 1.0 Unit: EA Repeat number: 1 Indications: Encounter for screening for malignant neoplasm of colon; Start: 01-13-2024 PEG-3350 with Electrolytes (Eqv-GoLYTELY) oral powder for reconstitution See Instructions, Take as directed starting 1 day before colonoscopy. Follow instructions as provided by your GI provider at [place]., # 1 EA, 0 Refill(s), Pharmacy: [facility]/pharmacy #[id number], Screening for colon cancer, 157.5, cm, 01/13/24 10:02:00 EST, Height, kg, 01/13/24 10:02:00 EST, Dosing Weight Start Date: 01/13/24 Status: Ordered Quantity: 1.0 Unit: EA Repeat number: 1 Indication: Encounter for screening for malignant neoplasm of colon Start: 01-13-2024 PEG-3350 with Electrolytes (Eqv-GoLYTELY) oral powder for reconstitution See Instructions, Take as directed starting 1 day before colonoscopy. Follow instructions as provided by your GI provider at [place]., # 1 EA, 0 Refill(s), Pharmacy: [facility]/pharmacy #[id number], Screening for colon cancer, 157.5, cm, 01/13/24 10:02:00 EST, Height, kg, 01/13/24 10:02:00 EST, Dosing Weight Start Date: 01/13/24 Status: Ordered polyethylene glycol 3350 85883 mg powder for oral solution (20 sources) Osmotic Laxative Start: 07-08-2024 End: 09-06-2024 take 17 doses by mouth twice daily MiraLax oral powder for reconstitution Dose : 17 gram(s) =, Oral, BID, # 1,020 gram(s), 1 Refill(s), Pharmacy: [facility]/pharmacy #[id number], 157.5, cm, 07/08/24 13:55:00 EDT, Height, kg, 07/08/24 13:55:00 EDT, Dosing Weight Start Date: 07/08/24 Stop Date: 09/06/24 Status: Ordered Quantity: 1020.0 Unit: g Repeat number: 2 Start: 06-05-2024 End: 10-11-2024 Polyethylene Glycol 3350 (Mi ralax) 17 gram/dose powder Discontinued 17 g PO DAILY 119 0 June 05, 2024 12:00am October 11, 2024 6:32pm Start: 11-12-2023 End: 01-11-2024 take 17 doses by mouth twice daily MiraLax oral powder for reconstitution Dose : 17 gram(s) =, Oral, BID, # 1,020 gram(s), 1 Refill(s), Pharmacy: [facility]/pharmacy #[id number], 157.5, cm, 11/12/23 9:00:00 EDT, Height, kg, 11/12/23 9:00:00 EDT, Dosing Weight Start Date: 11/12/23 Stop Date: 01/11/24 Status: Ordered Quantity: 1020.0 Unit: g Repeat number: 2 Start: 10-30-2023 End: 11-01-2023 take 17 g by mouth every twenty-four hours as needed for constipation Start: 08-05-2023 End: 08-07-2023 take 17 g by mouth every twenty-four hours as needed for constipation polyethylene glycol (PEG) 3350 (Miralax) packet 17 g Start: 07-22-2023 End: 09-20-2023 take 17 doses by mouth twice daily MiraLax oral powder for reconstitution Dose : 17 gram(s) =, Oral, BID, # 1,020 gram(s), 1 Refill(s), Pharmacy: [facility]/pharmacy #[id number], 157, cm, 07/22/23 9:38:00 EDT, Height, kg, 07/22/23 9:38:00 EDT, Dosing Weight Start Date: 07/22/23 Stop Date: 09/20/23 Status: Ordered Start: 05-17-2023 End: 05-19-2023 take 17 g by mouth every twenty-four hours as needed for constipation 17 g, Oral, Daily PRN, constipation, Starting on 05/17/23 at 0304, 1st line for treatment of constipation - give scheduled if no bowel movement in past 24 hours. Start: 03-11-2023 End: 05-10-2023 take 17 doses by mouth twice daily MiraLax oral powder for reconstitution Dose : 17 gram(s) =, Oral, BID, # 1,020 gram(s), 1 Refill(s), Pharmacy: [facility]/pharmacy #[id number], 157.5, cm, 03/11/23 9:33:00 EST, Height, kg, 03/11/23 9:33:00 EST, Dosing Weight Start Date: 03/11/23 Stop Date: 05/10/23 Status: Ordered Start: 09-20-2021 End: 11-19-2021 take 17 doses by mouth twice daily MiraLax oral powder for reconstitution Dose : 17 gram(s) =, Oral, BID, # 1,020 gram(s), 1 Refill(s), Pharmacy: [facility]/pharmacy #[id number], 157, cm, 09/20/21 15:52:00 EDT, Height, kg, 09/20/21 15:52:00 EDT, Dosing Weight Start Date: 09/20/21 Stop Date: 11/19/21 Status: Ordered Start: 05-13-2021 End: 07-12-2021 take 17 doses by mouth twice daily MiraLax oral powder for reconstitution Dose : 17 gram(s) =, Oral, BID, # 1,020 gram(s), 1 Refill(s), Pharmacy: [facility]/pharmacy #[id number], 157, cm, 05/13/21 9:00:00 EDT, Height, kg, 05/13/21 9:00:00 EDT, Dosing Weight Start Date: 05/13/21 Stop Date: 07/12/21 Status: Ordered Start: 2020 End: 04-26-2020 take 17 doses by mouth twice daily MiraLax oral powder for reconstitution Dose : 17 gram(s) =, Oral, BID, # 1,020 gram(s), 0 Refill(s), Pharmacy: [facility]/pharmacy #[id number], 157.5, cm, 03/27/20 13:08:00 EST, Height, kg, 03/27/20 13:08:00 EST, Dosing Weight Start Date: 03/27/20 Stop Date: 04/26/20 Status: Ordered Promethazine (2 sources) Phenothiazine Start: 01-08-2021 End: 01-15-2021 take 1 dose by mouth once daily at bedtime as needed for cough Promethazine DM 6.25 mg-15 mg/5 mL oral syrup Dose = 5 mL, Oral, qHS, PRN for cough, X 7 day(s), # 40 mL, 0 Refill(s), Pharmacy: [facility] [place]/pharmacy #[id number], Respiratory tract congestion with cough, 156, cm, 01/08/21 9:02:00 EST, Height, kg, 01/08/21 9:02:00 EST, Dosing Weight Start Date: 01/08/21 Stop Date: 01/15/21 Status: Ordered Start: 11-03-2019 promethazine ( PHENERGAN) tablet 12.5 mg ramelteon 8 mg oral tablet (5 sources) Melatonin Receptor Agonist Start: 06-05-2024 End: 01-04-2025 take 1 tablet by mouth at bedtime Ramelteon 8 mg tablet Active 8 mg PO AT BEDTIME June 05, 2024 12:00am rosuvastatin calcium 20 mg oral tablet (20 sources) HMG-CoA Reductase Inhibitor Start: 06-05-2024 End: 01-11-2025 take 1 tablet by mouth at bedtime Rosuvastatin 20 mg tablet Active 20 mg PO AT BEDTIME June 05, 2024 12:00am Start: 10-30-2023 End: 11-01-2023 take 20 mg by mouth once daily 20 mg, Oral, Daily, Fir st dose on Thu10/30/23 at 1415 Start: 08-05-2023 End: 08-07-2023 take 20 mg by mouth once daily 20 mg, Oral, Daily, Fir st dose on Thu08/05/23 at 2010 Start: 03-11-2023 End: 05-10-2024 rosuvastatin 20 mg oral tabl et Dose : 20 mg = 1 tab(s), Oral, qHS, # 90 tab(s), 1 Refill(s), Pharmacy: [facility] [place]/[facility]acy #[id number], 157.5, cm, 11/12/23 9:00:00 EDT, Height, kg, 11/12/23 9:00:00 EDT, Dosing Weight Start Date: 11/12/23 Stop Date: 05/10/24 Status: Ordered Quantity: 90.0 Unit: tab(s) Repeat number: 2 Sennosides (Sennosides 8.6 Mg Tablet) 8.6 mg tablet (1 source) Start: 10-11-2024 take 1 tablet by mouth at bedtime Sennosides (Sennosides 8.6 Mg Tablet) 8.6 mg tablet Active 17.2 mg PO AT BEDTIME October 11, 2024 12:00am sennosides, correction 8.6 mg oral tablet (5 sources) Start: 07-08-2024 End: 01-04-2025 senna (sennosides) 8.6 mg oral tablet Dose : 17.2 mg = 2 tab(s), Oral, qHS, X 90 day(s), # 180 tab(s), 1 Refill(s), 01/04/25 2:44:00 PM EST, Pharmacy: [facility]acy #[id number], 157.5, cm, 07/08/24 13:55:00 EDT, Height, kg, 07/08/24 13:55:00 EDT, Dosing Weight Start Date: 07/08/24 Stop Date: 01/04/25 Status: Ordered Quantity: 180.0 Unit: tab(s) Repeat number: 2 Start: 06-05-2024 End: 10-11-2024 take 1 capsule by mouth once daily as needed for constipation Sennosides (Senna) 8.6 mg capsule Discontinued 8.6 mg PO DAILY as needed for constipation 14 0 June 05, 2024 12:54pm October 11, 2024 6:32pm sertraline 100 mg oral tablet (20 sources) Serotonin Reuptake Inhibitor Start: 06-05-2024 Sertraline 100 mg tablet Active 150 mg PO AT BEDTIME June 05, 2024 12:00am Start: 10-30-2023 End: 11-01-2023 take 100 mg by mouth once daily 100 mg, Oral, Daily, F irst dose on Thu10/30/23 at 1415 Start: 08-05-2023 End: 08-07-2023 take 100 mg by mouth once daily 100 mg, Oral, Daily, F irst dose on Thu08/05/23 at 2010 Start: 07-22-2023 End: 01-11-2025 sertraline 100 mg oral table t Dose : 150 mg = 1.5 tab(s), Oral, qDay, # 135 tab(s), 1 Refill(s), Pharmacy: [facility], 157.5, cm, 07/08/24 13:55:00 EDT, Height, kg, 07/08/24 13:55:00 EDT, Dosing Weight Start Date: 07/15/24 Stop Date: 01/11/25 Status: Ordered Quantity: 135.0 Unit: tab(s) Repeat number: 2 Start: 05-18-2023 End: 05-19-2023 take 100 mg by mouth once daily 100 mg, Oral, Daily, F irst dose on 05/18/23 at 1145 Start: 05-01-2023 End: 06-30-2023 sertraline 50 mg oral tablet Dose : 100 mg = 2 tab(s), Oral, qDay, start 1.5 tab daily for 7 days, then increase to 2 full tablet daily, # 60 tab(s), 1 Refill(s), Pharmacy: [facility]acy #[id number], 157.5, cm, 05/01/23 9:06:00 EST, Height, kg, 05/01/23 9:12:00 EST, Dosing Weight Start Date: 05/01/23 Stop Date: 06/30/23 Status: Ordered Start: 03-11-2023 sertraline 50 mg oral tablet Dose : 50 mg = 1 tab(s), Oral, qDay, start 0.5 tab daily for 7 days, then increase to full tablet daily, # 90 tab(s), 0 Refill(s), Pharmacy: [facility]acy #[id number], 157.5, cm, 03/11/23 9:33:00 EST, Height, kg, 03/11/23 9:33:00 EST, Dosing Weight Start Date: 03/11/23 Status: Ordered sulfamethoxazole 800 mg / trimethoprim 160 mg oral tablet (1 source) Dihydrofolate Reductase Inhibitor Antibacterial, Sulfonamide Antimicrobial Start: 07-02-2023 End: 07-09-2023 take 1 tablet by mouth twice daily Bactrim DS 800 mg-160 mg oral tablet Dose = 1 tab(s), Oral, BID, X 7 day(s), # 14 tab(s), 0 Refill(s), Pharmacy: [facility]acy #[id number], 157, cm, 07/02/23 8:38:00 EDT, Height, 79.7, kg, 07/02/23 8:35:00 EDT, Dosing Weight Start Date: 07/02/23 Stop Date: 07/09/23 Status: Ordered tiZANidine 4 mg oral tablet (2 sources) Central alpha-2 Adrenergic Agonist Start: 10-11-2024 take 1 tablet by mouth every eight hours as needed for muscle spasms Tizanidine 4 mg tablet Active 4 mg PO EVERY 8 HOURS NEEDED as needed for muscle spasm October 11, 2024 12:00am Start: 08-03-2024 tiZANidine 4 m g oral tablet Dose : 4 mg = 1 tab(s), Oral, q8h, PRN as needed for muscle spasm, # 90 tab(s), 0 Refill(s), Pharmacy: [facility]/[facility]acy #[id number], Neck pain, 157.5, cm, 08/03/24 7:57:00 EDT, Height, kg, 08/03/24 7:57:00 EDT, Dosing Weight Start Date: 08/03/24 Status: Ordered Quantity: 90.0 Unit: tab(s) Repeat number: 1 Indications: Cervicalgia; traMADol hydrochloride 50 mg oral tablet (9 sources) Opioid Agonist Start: 11-30-2023 End: 12-05-2023 Ultram 50 mg oral tablet Dose : 50 mg = 1 tab(s), Oral, q12hr, X 5 day(s), # 10 tab(s), 0 Refill(s), 12/05/23 6:57:00 PM EDT, Abdominal pain, 81.2 Start Date: 11/30/23 Stop Date: 12/05/23 Status: Ordered Start: 10-31-2023 End: 10-31-2023 take 50 mg by mouth once 50 mg, Oral, Once, On Sat at 1845, For 1 dose Start: 05-17-2023 End: 05-19-2023 take 1 tablet by mouth every six hours as needed for pain traMADol (Ultram) tablet 50 mg Start: 04-02-2023 End: 04-07-2023 Ultram 50 mg oral tablet Dos e : 50 mg = 1 tab(s), Oral, q12hr, X 5 day(s), # 10 tab(s), 0 Refill(s), 04/07/23 10:19:00 PM EST, Abdominal pain, 80.2 Start Date: 04/02/23 Stop Date: 04/07/23 Status: Ordered Start: 09-20-2021 End: 10-04-2021 traMADol 100 mg oral tablet Dose : 100 mg = 1 tab(s), Oral, q8h, to fill on or after 09/20/21, X 14 day(s), # 42 tab(s), 0 Refill(s), 10/04/21 16:23:00 EDT, [id number] Right shoulder pain, 157, cm, 09/20/21 15:52:00 EDT, Height, 72.5 Start Date: 09/20/21 Stop Date: 10/04/21 Status: Ordered Start: 08-27-2021 End: 09-17-2021 traMADol 100 mg oral tablet Dose : 100 mg = 1 tab(s), Oral, q6hr, increased dose, to fill on or after 08/27/21, X 21 day(s), # 84 tab(s), 0 Refill(s), 09/17/21 12:09:00 EDT, [id number], Right rotator cuff tear, 156.9, cm, 08/27/21 11:46:00 EDT, Height, 72.5 Start Date: 08/27/21 Stop Date: 09/17/21 Status: Ordered Start: 07-24-2021 End: 07-27-2021 Ultram 50 mg oral tablet Dos e : 50 mg = 1 tab(s), PO, q6-8hr, PRN as needed for pain, X 3 day(s), # 12 tab(s), 0 Refill(s), 07/27/21 15:00:00 EDT, Shoulder pain, 76 Start Date: 07/24/21 Stop Date: 07/27/21 Status: Ordered Vitamin B12 1000 mcg oral tablet (15 sources) Start: 07-08-2024 End: 01-04-2025 Vitamin B12 1000 mcg oral ta blet Dose : 1,000 mcg = 1 tab(s), Oral, qDay, # 90 tab(s), 1 Refill(s), Pharmacy: [facility] #[id number], 157.5, cm, 07/08/24 13:55:00 EDT, Height, kg, 07/08/24 13:55:00 EDT, Dosing Weight Start Date: 07/08/24 Stop Date: 01/04/25 Status: Ordered Quantity: 90.0 Unit: tab(s) Repeat number: 2 Start: 11-12-2023 End: 05-10-2024 Vitamin B12 1000 mcg oral ta blet Dose : 1,000 mcg = 1 tab(s), Oral, qDay, # 90 tab(s), 1 Refill(s), Pharmacy: [facility] #[id number], 157.5, cm, 11/12/23 9:00:00 EDT, Height, kg, 11/12/23 9:00:00 EDT, Dosing Weight Start Date: 11/12/23 Stop Date: 05/10/24 Status: Ordered Quantity: 90.0 Unit: tab(s) Repeat number: 2 Start: 11-12-2023 End: 05-10-2024 Vitamin B12 1000 mcg oral ta blet Dose : 1,000 mcg = 1 tab(s), Oral, qDay, # 90 tab(s), 1 Refill(s), Pharmacy: [facility] #[id number], 157.5, cm, 11/12/23 9:00:00 EDT, Height, kg, 11/12/23 9:00:00 EDT, Dosing Weight Start Date: 11/12/23 Stop Date: 05/10/24 Status: Ordered Start: 07-22-2023 End: 01-18-2024 Vitamin B12 1000 mcg oral ta blet Dose : 1,000 mcg = 1 tab(s), Oral, qDay, # 90 tab(s), 1 Refill(s), Pharmacy: [id number], 157, cm, 07/22/23 9:38:00 EDT, Height, kg, 07/22/23 9:38:00 EDT, Dosing Weight Start Date: 07/22/23 Stop Date: 01/18/24 Status: Ordered Start: 03-11-2023 End: 09-07-2023 Vitamin B12 1000 mcg oral ta blet Dose : 1,000 mcg = 1 tab(s), Oral, qDay, # 90 tab(s), 1 Refill(s), Pharmacy: [facility]acy #[id number], 157.5, cm, 03/11/23 9:33:00 EST, Height, kg, 03/11/23 9:33:00 EST, Dosing Weight Start Date: 03/11/23 Stop Date: 09/07/23 Status: Ordered Start: 05-13-2021 End: 11-09-2021 Vitamin B12 1000 mcg oral ta blet Dose : 1,000 mcg = 1 tab(s), Oral, qDay, # 90 tab(s), 1 Refill(s), Pharmacy: [id number], 157, cm, 05/13/21 9:00:00 EDT, Height, kg, 05/13/21 9:00:00 EDT, Dosing Weight Start Date: 05/13/21 Stop Date: 11/09/21 Status: Ordered zolpidem tartrate 5 mg oral tablet (9 sources) gamma-Aminobutyric Acid-ergic Agonist Start: 06-05-2024 take 1 tablet by mouth at bedtime as needed Zolpidem 5 mg tablet Active 5 mg PO AT BEDTIME NEEDED as needed for insomnia June 05, 2024 12:00am Start: 11-12-2023 End: 03-09-2024 zolpidem 5 mg oral tablet Do se : 5 mg = 1 tab(s), Oral, qHS, PRN as needed for sleep, fill on or after 12/10/2023, X 30 day(s), # 30 tab(s), 2 Refill(s), 03/09/24 1:16:00 PM EST, Pharmacy: [facility]acy #[id number], Insomnia, 157.5, cm, 11/12/23 9:00:00 EDT, Height, 81.2, kg, 11/30/23 15:29:00 EDT, Dosing Weight Start Date: 12/10/23 Stop Date: 03/09/24 Status: Ordered Start: 08-14-2023 zolpidem 5 mg oral tablet Dose : 5 mg = 1 tab(s), Oral, qHS, PRN as needed for sleep, 0 Refill(s), 79.4 Start Date: 08/14/23 Status: Ordered Start: 08-06-2023 End: 08-07-2023 zolpidem (Ambien) tablet 5 m g Completed/Discontinued Medications Medication Drug Class(es) Dates Sig (Normalized) Sig (Original) Acetaminophen (5 sources) Start: 10-30-2023 End: 11-01-2023 take 1 tablet by mouth every six hours as needed for pain acetaminophen (Tylenol) tablet 650 mg Start: 05-17-2023 End: 05-19-2023 take 1 tablet by mouth every six hours as needed for pain and fever acetaminophen (Tylenol) tablet 650 mg Start: 11-03-2019 End: 11-03-2019 acetaminophen (TYLENOL) tabl et 1,000 mg ALPRAZolam 0.25 mg disintegrating oral tablet (1 source) Benzodiazepine Start: 11-03-2019 End: 11-03-2019 ALPRAZolam (NIRAVAM) dissolvable tablet 0.25 mg amoxicillin 500 mg oral capsule (6 sources) Penicillin-class Antibacterial take 1 capsule by mouth three times daily amoxicillin (AMOXIL) 500 MG capsule Take 500 mg by mouth 3 times daily 0 Suspended aprepitant 40 mg oral capsule (1 source) Substance P/Neurokinin-1 Receptor Antagonist Start: 11-03-2019 End: 11-03-2019 aprepitant (EMEND) capsule 40 mg Start: 11-03-2019 End: 11-03-2019 aprepitant (EMEND) capsule 4 0 mg calcium acetate 667 mg oral capsule (1 source) Start: 09-16-2019 CALCIUM ACETAT E (PHOS BINDER) 667 MG CAPS 1 capsule once daily CALCIUM ACETATE (PHOS BINDER) [id number] Josie Gómez calcium chloride 0.0014 meq/ ml / potassium chloride 0.004 meq/ml / sodium chloride 0.103 meq/ml / sodium lactate 0.028 meq/ml injectable solution (4 sources) Start: 08-05-2023 End: 08-05-2023 lactated ringers bolus 500 m L Start: 11-03-2019 Intravenous, a t 125 mL/hr, CONTINUOUS, Starting Prema 11/03/19 at 1845, Post-op Start: 11-03-2019 End: 11-03-2019 lactated ringers infusion calcium citrate 500 mg oral tablet (6 sources) Start: 08-24-2018 take 500 mg by mouth three times daily CALCIUM CITRATE PO Indications: supplement Take 500 mg by mouth 3 times daily Indications: supplement 0 08/24/2018 Suspended ceFAZolin 2000 mg injection (1 source) Cephalosporin Antibacterial Start: 11-03-2019 End: 11-03-2019 ceFAZolin (ANCEF) 2 g in dextrose 4 % 100 mL IVPB (premix) celecoxib 400 mg oral capsule (1 source) Nonsteroidal Anti-inflammatory Drug Start: 11-03-2019 End: 11-03-2019 celecoxib (CELEBREX) capsule 400 mg Start: 11-03-2019 End: 11-03-2019 celecoxib (CELEBREX) capsule 400 mg cholecalciferol 9.52 unt/ml / glucose 357 mg/ml oral gel (2 sources) Vitamin D Start: 10-30-2023 End: 11-01-2023 15 g, Oral, As needed, low blood sugar, Starting on Thu10/30/23 at 1754, If blood glucose less than 50 mg/dL and patient ALERT and NOT NPO, give 2 tubes glucose gel. If blood glucose less than 70 mg/dL and patient ALERT and NOT NPO, give 1 tube glucose gel. Repeat blood glucose in 15 minutes. If blood glucose is less than 70 mg/dL, repeat treatment and recheck blood glucose in 15 minutes x2 and notify provider. 0.4 ml enoxaparin sodium 100 mg/ml prefilled syringe (7 sources) Low Molecular Weight Heparin Start: 10-30-2023 End: 11-01-2023 inject 40 mg by subcutaneous injection every twenty-four hours 40 mg, SubCUTAneous, Every 24 hours scheduled (Daily), First dose on Thu10/30/23 at 1415, Indication of Use: Prophylaxis-DVT/PE, Indications: Prophylaxis of Venous Thromboembolism Start: 08-05-2023 End: 08-07-2023 enoxaparin (Lovenox) syringe 40 mg Start: 05-17-2023 End: 05-19-2023 inject 40 mg by subcutaneous injection every twenty-four hours 40 mg, SubCUTAneous, Every 24 hours scheduled (Daily), First dose on Thu05/17/23 at 0900, Indication of Use: Prophylaxis-DVT/PE, Indications: Prophylaxis of Venous Thromboembolism Start: 11-03-2019 End: 11-03-2019 enoxaparin (LOVENOX) injecti on 40 mg 1 ml ePHEDrine sulfate 50 mg/ml injection (1 source) alpha-Adrenergic Agonist, beta-Adrenergic Agonist, Norepinephrine Releasing Agent Start: 11-03-2019 End: 11-03-2019 ePHEDrine injection 25 mg Start: 11-03-2019 End: 11-03-2019 ePHEDrine injection 25 mg famotidine 20 mg oral tablet (1 source) Histamine-2 Receptor Antagonist Start: 11-03-2019 End: 11-03-2019 famotidine (PEPCID) tablet 20 mg Start: 11-03-2019 End: 11-03-2019 famotidine (PEPCID) tablet 2 0 mg 2 ml fentaNYL 0.05 mg/ml injection (1 source) Opioid Agonist Start: 11-03-2019 End: 11-03-2019 fentaNYL (SUBLIMAZE) injection 50 mcg glucagon (rdna) 1 mg injection (2 sources) Antihypoglycemic Agent Start: 10-30-2023 End: 11-01-2023 1 mg, IntraMUSCular, PRN, low blood sugar, Blood glucose less than 70 mg/dL and patient NOT ALERT or NPO and does not have IV access., Starting on Thu10/30/23 at 1754, After administration, attempt intravenous access and start D5W at 100 mL/hr. Repeat blood glucose in 15 minutes x2 and notify provider. 150 ml glucose 50 mg/ml injection (4 sources) Start: 10-30-2023 End: 11-01-2023 12.5 g, IntraVENous, PRN, low blood sugar, Blood glucose less than 70 mg/dL and patient NOT ALERT or NPO., Starting on Thu10/30/23 at 1754, If patient does not respond within 5 minutes, repeat dose x1. Start D5W at 100 mL/hour until ordering provider can be reached. Repeat blood glucose in 15 minutes. If blood glucose is less than 70 mg/dL, repeat treatment and recheck blood glucose in 15 minutes x2. If using Glucostabilizer, dose as instructed per system. Start: 10-30-2023 End: 11-01-2023 100 mL/hr, IntraVENous, PRN, Blood sugar less than 70mg/dL, Starting on Thu10/30/23 at 1754, Start infusion following administration of dextrose 50% or glucagon. 1 ml HYDROmorphone hydrochloride 1 mg/ml cartridge (1 source) Opioid Agonist Start: 11-03-2019 End: 11-03-2019 HYDROmorphone (DILAUDID) injection 0.5 mg Ibuprofen (4 sources) Nonsteroidal Anti-inflammatory Drug Start: 10-31-2023 End: 11-01-2023 take 1 tablet by mouth every eight hours as needed for pain ibuprofen tablet 400 mg Start: 08-06-2023 End: 08-07-2023 take 1 tablet by mouth every six hours a s needed for pain and pain and fever and headache ibuprofen tablet 600 mg Insulin Lispro (Humalog) injection 0-6 Units (2 sources) Start: 10-30-2023 End: 11-01-2023 Insulin Lispro (Humalog) injection 0-6 Units iopamidol (Isovue-370) 76 % injection 75 mL (4 sources) Start: 08-05-2023 End: 08-05-2023 iopamidol (Isovue-370) 76 % injection 75 mL Start: 05-19-2023 End: 05-19-2023 iopamidol (Isovue-370) 76 % injection 75 mL iron carbonyl 12 mg/ml oral suspension (1 source) Start: 09-16-2019 ICAR 15 MG/1.2 5ML SUSP 2 times daily as directed CARBONYL IRON [id number] Josie Gómez levETIRAcetam (Keppra) 4,000 mg in sodium chloride 0.9 % 250 mL IVPB (2 sources) Start: 08-06-2023 End: 08-06-2023 levETIRAcetam (Keppra) 4,000 mg in sodium chloride 0.9 % 250 mL IVPB 1 ml LORazepam 2 mg/ml injection (2 sources) Benzodiazepine Start: 08-05-2023 End: 08-05-2023 LORazepam (Ativan) injection 4 mg Start: 08-05-2023 End: 08-05-2023 LORazepam (Ativan) injection 4 mg melatonin 3 mg oral tablet (2 sources) Start: 08-05-2023 End: 08-07-2023 melatonin tablet 3 mg 1 ml naloxone hydrochloride 0.4 mg/ml injection (2 sources) Opioid Antagonist Start: 05-17-2023 End: 05-19-2023 naloxone (Narcan) injection 0.4 mg nitroglycerin 0.4 mg sublingual tablet (2 sources) Nitrate Vasodilator Start: 05-19-2023 End: 05-19-2023 nitroglycerin (Nitrostat) SL tablet 0.8 mg Start: 05-19-2023 End: 05-19-2023 nitroglycerin (Nitrostat) SL tablet 0.8 mg ondansetron 4 mg disintegrating oral tablet (8 sources) Serotonin-3 Receptor Antagonist Start: 05-20-2024 End: 06-05-2024 take 1 tablet by mouth every eight hours as needed for nausea Ondansetron 4 mg tablet,disintegrating Discontinued 4 mg PO EVERY 8 HOURS NEEDED as needed for Nausea 10 0 May 20, 2024 12:00am June 05, 2024 1:08pm Start: 10-30-2023 End: 11-01-2023 take 4 mg intravenously every six hours as needed for nausea and vomiting 4 mg, IntraVENous, Every 6 hours PRN, nausea, vomiting, Starting on Thu10/30/23 at 1411, 1st Line. Give IV if patient is unable to take orally. If inadequate response within 60 minutes, proceed to next-line agent or contact provider if no further options ordered. Start: 2020 End: 04-10-2020 ondansetron 4 mg oral tablet Dose : 4 mg = 1 tab(s), Oral, q8h, PRN Nausea/Vomiting, # 42 tab(s), 0 Refill(s), Pharmacy: [facility] [id number], 157.5, cm, 03/27/20 13:08:00 EST, Height, kg, 03/27/20 13:08:00 EST, Dosing Weight Start Date: 03/27/20 Stop Date: 04/10/20 Status: Ordered Start: 11-03-2019 take 2 tablets by mo lah every eight hours as needed for nausea ondansetron (ZOFRAN-ODT) 4 MG disintegrating tablet Take 2 tablets by mouth every 8 hours as needed for Nausea or Vomiting 10 tablet 1 11/03/2019 Active Start: 11-03-2019 End: 11-03-2019 ondansetron (ZOFRAN) injecti on 4 mg ondansetron ODT (Zofran-ODT) disintegrating tablet 4 mg (2 sources) Start: 08-05-2023 End: 08-07-2023 take 1 tablet by mouth every eight hours as needed for nausea and vomiting ondansetron ODT (Zofran-ODT) disintegrating tablet 4 mg PEDIATRIC MULTIVITAMINS-IRON PO (6 sources) Start: 02-18-2018 take 2 tablets by mouth once daily PEDIATRIC MULTIVITAMINS-IRON PO Indications: supplement Take 2 tablets by mouth daily 0 02/18/2018 Suspended Start: 02-18-2018 take 2 tablets by mo [facility] once daily PEDIATRIC MULTIVITAMINS-IRON PO Indications: supplement Take 2 tablets by mouth daily 0 02/18/2018 Active perflutren protein A microsp here (Optison) 3 mL in sodium chloride (PF) 0.9 % 10 mL IV syringe (2 sources) Start: 05-17-2023 End: 05-19-2023 perflutren protein A microsphere (Optison) 3 mL in sodium chloride (PF) 0.9 % 10 mL IV syringe predniSONE 50 mg oral tablet (4 sources) Start: 02-12-2021 End: 02-17-2021 predniSONE 50 mg oral tablet Dose : 50 mg = 1 tab(s), Oral, qDayM, # 5 tab(s), 0 Refill(s), Pharmacy: [facility] [id number], 157, cm, 02/12/21 8:16:00 EST, Height, kg, 02/12/21 8:16:00 EST, Dosing Weight Start Date: 02/12/21 Stop Date: 02/17/21 Status: Ordered PROBIOTIC PRODUCT (1 source) Start: 09-16-2019 ACIDOPHILUS CH EW 1 tablet once daily PROBIOTIC PRODUCT [id number] Josie Gómez Probiotic Product (PROBIOTIC DAILY PO) (6 sources) Probiotic Produc t (PROBIOTIC DAILY PO) Take by mouth 0 Suspended Probiotic Produc t (PROBIOTIC DAILY PO) Take by mouth 0 Active prochlorperazine 25 mg rectal suppository (2 sources) Phenothiazine Start: 11-01-2023 End: 11-01-2023 take 25 mg rectal route once 25 mg, Rectal, Once, On Thu11/01/23 at 0015, For 1 dose 5 ml sodium chloride 9 mg/ml injection (14 sources) Start: 10-30-2023 End: 11-01-2023 10 mL, IntraVENous, Every 12 hours scheduled (2 times per day), First dose on Thu10/30/23 at 2100 Start: 10-30-2023 End: 11-01-2023 Start: 10-30-2023 End: 11-01-2023 Start: 08-05-2023 End: 08-07-2023 sodium chloride 0.9 % infusi on Start: 08-05-2023 End: 08-05-2023 sodium chloride 0.9 % bolus 1,000 mL Start: 05-17-2023 End: 05-19-2023 take 100 mL intravenously every hour 100 mL/hr, IntraV ENous, Continuous, Starting on Thu05/17/23 at 0305 Start: 11-03-2019 10 mL, Intrave nous, EVERY 12 HOURS SCHEDULED (2 times per day), First dose on Prema 11/03/19 at 2100, Post-op Start: 11-03-2019 take 10 mL intravenous route o nce 10 mL, Intravenous, PRN, Line Care, Starting Prema 11/03/19 at 1829 After every IV line use Post-op vitamin b12 1 mg oral tablet (20 sources) Vitamin B12 Start: 10-30-2023 End: 11-01-2023 take 1000 ug by mouth once daily 1,000 mcg, Oral, Daily, First dose on Thu10/30/23 at 1415 Start: 05-17-2023 End: 05-19-2023 take 1000 ug by mouth once daily 1,000 mcg, Oral, Daily, First dose on Thu05/17/23 at 0800 Start: 09-27-2020 End: 08-11-2021 Vitamin B12 1000 mcg oral ta blet Dose : 1,000 mcg = 1 tab(s), Oral, qDay, # 90 tab(s), 1 Refill(s), Pharmacy: [facility] [place] #[id number], 157, cm, 02/12/21 8:16:00 EST, Height, kg, 02/12/21 8:16:00 EST, Dosing Weight Start Date: 02/12/21 Stop Date: 08/11/21 Status: Ordered Start: 08-24-2018 Cyanocobalamin (VITAMIN B-12) 1000 MCG SUBL Indications: supplement Place 1,000 mcg under the tongue every other day Indications: supplement 0 08/24/2018 Suspended VITAMIN D, CHOLECALCIFEROL, PO (6 sources) Start: 02-18-2018 End: 11-03-2019 VITAMIN D, CHOLECALCIFEROL, PO Indications: supplement Take 4,000 Int'l Units by mouth daily 0 02/18/2018 11/03/2019 Discontinued (Stop Taking at Discharge) Start: 02-18-2018 VITAMIN D, CHO LECALCIFEROL, PO Indications: supplement Take 4,000 Int'l Units by mouth daily 0 02/18/2018 Active Problems Active Problems Problem Classification Problem Date Documented Da te Episodic/Chronic Abdominal hernia (20 sources) Incisional hernia; Translations: [Hernia of anterior abdominal wall] Onset: 8 02-12-2018 Episodic Abdominal pain (20 sources) Abdominal pain; Translations: [Unspecified abdominal pain] Onset: 8 04-08-2017 Episodic Anxiety disorders (10 sources) Anxiety; Translations: [Panic attack] 11-12-2023 Chronic Aortic; peripheral; and visceral artery aneurysms (20 sources) Aneurysm of thoracic aorta 04-06-2019 Chronic Blindness and vision defects (4 sources) Eye / vision finding; Translations: [Unspecified visual disturbance] 10-08-2015 Episodic Calculus of urinary tract (20 sources) Kidney stone 03-31-2020 Episodic Cardiac dysrhythmias (20 sources) Sinus bradycardia; Translations: [Bradycardia] Onset: 4 03-16-2019 Episodic Coronary atherosclerosis and other heart disease (2 sources) Coronary arteriosclerosis 03-29-2024 Chronic Comment on above: seen on chest CTA 2024 Diabetes mellitus with complications (15 sources) Peripheral vascular disorder due to diabetes mellitus; Translations: [Type 2 diabetes mellitus with other circulatory complications] Onset: 4 03-11-2023 Chronic Diabetes mellitus without complication (20 sources) Type 2 diabetes mellitus without complication; Translations: [Type 2 diabetes mellitus] Onset: 6 Resolved: 9 08-24-2018 Chronic Diverticulosis and diverticulitis (20 sources) Diverticular disease; Translations: [Diverticulitis of intestine] 05-21-2020 Chronic Epilepsy; convulsions (2 sources) Seizure disorder; Translations: [Epilepsy, unspecified, not intractable, without status epilepticus] 10-11-2024 Chronic Epilepsy; convulsions (20 sources) Neurological finding; Translations: [Unspecified convulsions] Onset: 4 08-05-2023 Episodic Esophageal disorders (20 sources) Gastroesophageal reflux disease without esophagitis; Translations: [Gastro-esophageal reflux disease without esophagitis] Onset: 8 02-12-2018 Chronic Essential hypertension (20 sources) Essential hypertension; Translations: [Hypertensive disorder] Onset: 8 02-12-2018 Chronic Fluid and electrolyte disorders (4 sources) Low blood pressure; Translations: [Hypovolemia] 08-17-2024 Episodic Gastrointestinal hemorrhage (20 sources) Hematochezia 2020 Episodic Genitourinary symptoms and ill-defined conditions (2 sources) Unspecified symptoms and signs involving the genitourinary system; Translations: [Unspecified symptoms and signs involving the genitourinary system] Onset: 4 Episodic Headache; including migraine (20 sources) Headache; Translations: [Headache] Onset: 5 12-05-2014 Episodic Malaise and fatigue (20 sources) Fatigue; Translations: [Other fatigue] Onset: 8 04-08-2017 Episodic Miscellaneous mental health disorders (3 sources) Dissociative convulsions; Translations: [Conversion disorder with seizures or convulsions] Onset: 4 10-01-2023 Chronic Mood disorders (12 sources) Major depression, single episode; Translations: [Major depression in remission] 03-11-2023 Chronic Mood disorders (20 sources) Hernandez 12-15-2018 Episodic Nausea and vomiting (6 sources) Nausea and vomiting; Translations: [Nausea with vomiting, unspecified] Onset: 4 Episodic Nutritional deficiencies (20 sources) Vitamin D deficiency; Translations: [Vitamin D deficiency, unspecified] Onset: 4 12-15-2018 Chronic Nutritional deficiencies (20 sources) Deficiency of multiple nutrient elements; Translations: [Iron deficiency] Onset: 8 02-16-2018 Episodic Other aftercare (1 source) Encounter for other specified surgical aftercare; Translations: [Encounter for other specified surgical aftercare] Onset: 0 11-09-2019 Episodic Other bone disease and musculoskeletal deformities (20 sources) Somatic dysfunction of rib 04-06-2019 Episodic Other circulatory disease (4 sources) Elevated blood-pressure reading without diagnosis of hypertension; Translations: [Elevated blood-pressure reading, without diagnosis of hypertension] 05-20-2024 Episodic Other connective tissue disease (20 sources) Adhesive capsulitis of shoulder 05-18-2019 Episodic Other connective tissue disease (2 sources) Recurrent falls ; Translations: [Repeated falls] 08-17-2024 Episodic Other gastrointestinal disorders (20 sources) Intestinal malabsorption; Translations: [Intestinal malabsorption, unspecified] Onset: 8 02-16-2018 Chronic Other gastrointestinal disorders (20 sources) Diarrhea 12-15-2018 Episodic Other gastrointestinal disorders (20 sources) History of bariatric surgical procedure 04-06-2019 Episodic Other gastrointestinal disorders (1 source) Constipation, unspecified; Translations: [Constipation, unspecified] Onset: 4 Episodic Other gastrointestinal disorders (9 sources) Constipation; Translations: [Constipation, unspecified] 09-14-2023 Episodic Other gastrointestinal disorders (3 sources) Bariatric surgery status; Translations: [Bariatric surgery status] Onset: 4 Episodic Other inflammatory condition of skin (20 sources) Rosacea 04-06-2019 Chronic Other liver diseases (20 sources) Steatosis of liver; Translations: [Fatty (change of) liver, not elsewhere classified] Onset: 8 02-12-2018 Chronic Other lower respiratory disease (20 sources) Snoring 11-12-2020 Episodic Other nervous system disorders (2 sources) Pins and needles; Translations: [Paresthesia of skin] 05-27-2023 Episodic Other nervous system disorders (4 sources) Slurred speech; Translations: [Slurred speech] 10-08-2015 Episodic Other non-traumatic joint disorders (20 sources) Shoulder pain 04-06-2019 Episodic Other non-traumatic joint disorders (1 source) Pain of right shoulder joint; Translations: [Pain in right shoulder] Episodic Other non-traumatic joint disorders (1 source) Shoulder joint pain; Translations: [Pain in unspecified shoulder] Onset: 2 Episodic Other nutritional; endocrine; and metabolic disorders (20 sources) Morbid obesity; Translations: [Morbid (severe) obesity due to excess calories] Onset: 8 02-14-2018 Chronic Other nutritional; endocrine; and metabolic disorders (7 sources) Body mass index 30+ - obesity 03-11-2023 Chronic Other nutritional; endocrine; and metabolic disorders (2 sources) Localized adiposity; Translations: [Localized adiposity] Onset: 0 09-21-2019 Chronic Other nutritional; endocrine; and metabolic disorders (19 sources) Excess panniculus of abdomen; Translations: [Localized adiposity] Onset: 0 11-03-2019 Chronic Other nutritional; endocrine; and metabolic disorders (15 sources) Obesity 12-15-2018 Chronic Other nutritional; endocrine; and metabolic disorders (4 sources) Body mass index 25-29 - overweight 08-27-2021 Episodic Other nutritional; endocrine; and metabolic disorders (4 sources) Overweight 05-28-2023 Episodic Other nutritional; endocrine; and metabolic disorders (4 sources) Overweight in adulthood with body mass index of 25 or more but less than 30 05-28-2023 Episodic Other screening for suspected conditions (not mental disorders or infectious disease) (4 sources) Serum iron low; Translations: [Viral screening status] Onset: 5 02-06-2022 Episodic Other skin disorders (20 sources) Loss of hair 12-15-2018 Episodic Other upper respiratory infections (19 sources) Viral upper respiratory tract infection 02-12-2021 Episodic Pancreatic disorders (not diabetes) (20 sources) Cyst of pancreas 03-31-2020 Episodic Peripheral and visceral atherosclerosis (20 sources) Atherosclerosis of aorta; Translations: [Peripheral vascular disease] 04-18-2022 Chronic Pulmonary heart disease (20 sources) Dilatation of pulmonary artery 04-06-2019 Episodic Residual codes; unclassified (20 sources) Bruises easily 12-15-2018 Episodic Residual codes; unclassified (20 sources) History of colectomy 2020 Episodic Residual codes; unclassified (20 sources) Insomnia 11-12-2020 Episodic Residual codes; unclassified (20 sources) Postmenopausal state 12-15-2018 Episodic Residual codes; unclassified (12 sources) Immunization due 02-06-2022 Episodic Residual codes; unclassified (12 sources) Screening due 03-11-2023 Episodic Residual codes; unclassified (11 sources) Memory impairment 05-01-2023 Episodic Residual codes; unclassified (2 sources) Disturbance of consciousness; Translations: [Transient alteration of awareness] 10-11-2024 Episodic Screening and history of mental health and substance abuse codes (12 sources) Tobacco use and exposure - finding 02-06-2022 Chronic Spondylosis; intervertebral disc disorders; other back problems (20 sources) Backache 03-16-2019 Episodic Superficial injury; contusion (2 sources) Abrasion of nose; Translations: [Abrasion of nose, initial encounter] 08-17-2024 Episodic Syncope (9 sources) Syncope and collapse; Translations: [Syncope and collapse] Onset: 4 05-27-2023 Episodic Thyroid disorders (20 sources) Hypothyroidism; Translations: [Hypothyroidism, unspecified] Onset: 8 03-16-2017 Chronic Unclassified (1 source) Patient care statuses; Translations: [Bariatric surgery status] Onset: 0 09-21-2019 Unclassified (20 sources) History of hernia repair 2020 Unclassified (20 sources) Patient encounter status 12-15-2018 Unclassified (2 sources) Drug therapy finding 08-09-2021 Unclassified (2 sources) Rupture of rotator cuff of shoulder 08-27-2021 Past or Other Problems Problem Classification Problem Date Documented Da te Episodic/Chronic Complications of surgical procedures or medical care (20 sources) Gastrointestinal anastomotic stricture; Translations: [Other postprocedural complications and disorders of digestive system] Onset: 9 04-20-2018 Episodic Disorders of lipid metabolism (6 sources) Mixed hyperlipidemia; Translations: [Mixed hyperlipidemia] Onset: 8 Resolved: 9 08-24-2018 Chronic Gastritis and duodenitis (20 sources) Superficial gastritis; Translations: [Acute superficial gastritis] Onset: 8 06-16-2017 Episodic Other gastrointestinal disorders (20 sources) Oropharyngeal dysphagia; Translations: [Dysphagia, oropharyngeal phase] Onset: 9 04-20-2018 Episodic Other nervous system disorders (2 sources) Paresthesia of skin; Translations: [Paresthesia of skin] Onset: 4 Episodic Other non-traumatic joint disorders (20 sources) Joint pain; Translations: [Pain in unspecified joint] Onset: 8 04-08-2017 Episodic Residual codes; unclassified (20 sources) Chronic back pain ; Translations: [Dorsalgia, unspecified] Onset: 5 12-05-2014 Episodic Residual codes; unclassified (20 sources) Unresponsive ; Translations: [Transient alteration of awareness] Onset: 4 05-16-2023 Episodic Residual codes; unclassified (2 sources) Transient alteration of awareness; Translations: [Transient alteration of awareness] Onset: 4 Episodic Unclassified (1 source) Problem Results Test Name Value Interpretation Reference Range Facility Absolute lymphocyte countOrd ered By: Wesly Diallo on 10-11-2024 Lymphocytes Auto (Unsp spec) [#/Vol] 2.70 10*3/uL 0.83-4.51 [facility] Absolute neutrophil countOrd ered By: Wesly Diallo on 10-11-2024 Neutrophils (Bld) [#/Vol] 3.8 10*3/uL 2.0-7.7 [facility] Anion gap in Serum or Plasma Ordered By: Wesly Diallo on 10-11-2024 Anion gap [Moles/Vol] 15 mmol/L 5-15 [facility] Automated lymphocyte count a s percentage of total leukocytesOrdered By: Wesly Diallo on 10-11-2024 Lymphocytes/100 WBC Auto (Unsp spec) 37.3 % 19-41 [facility] BUN/creatinine ratioOrdered By: Wesly Diallo on 10-11-2024 Urea nitrogen/Creatinine [Mass ratio] 15.7 mg/mg 10-20 [facility] Basophil percentageOrdered B y: Wesly Diallo on 10-11-2024 Basophils/100 WBC (Bld) 0.7 % 0-1 [facility] Bilirubin Test strip Ql (U)O rdered By: Wesly Diallo on 10-11-2024 Bilirubin Ql (U) Negative Negative [facility] Bilirubin directOrdered By: Wesly Diallo on 10-11-2024 Bilirubin.direct [Mass/Vol] 0.09 mg/dL 0.00-0.30 [facility] Bilirubin, totalOrdered By: Wesly Diallo on 10-11-2024 Bilirubin [Mass/Vol] 0.20 mg/dL 0.00-1.30 [facility] Carbon dioxide, total [Moles /volume] in Central venous bloodOrdered By: Wesly Diallo on 10-11-2024 CO2 [Moles/Vol] 19.8 mmol/L Low 21.0-32.0 [facility] Chloride assayOrdered By: Christiano Diallo on 10-11-2024 Chloride [Moles/Vol] 106 mmol/L 98-108 [facility] Eosinophil percentageOrdered By: Wesly Diallo on 10-11-2024 Eosinophils/100 WBC (Bld) 2.2 % 0-5 [facility] Erythrocyte distribution wid th ratioOrdered By: Wesly Diallo on 10-11-2024 Erythrocyte distribution width (RBC) [Ratio] 14.1 % 11.6-14.6 [facility] Erythrocyte distribution wid th standard deviationOrdered By: Wesly Diallo on 10-11-2024 Erythrocyte distribution width (RBC) [Ratio] 44.6 fl High 35.1-43.9 [facility] Glomerular filtration rate ( GFR) estimation/1.73 sq m using serum, plasma, or whole bOrdered By: Wesly Diallo on 10-11-2024 GFR/1.73 sq M.predicted among non-blacks MDRD (S/P/Bld) [Vol rate/Area] 93 mL/min/{1.73_m2} >60 [facility] Comment on above: mL/min/1.73m2 CKD-EP I Creatinine Equation (2020) Hematocrit Auto (Bld) [Volum e fraction]Ordered By: Wesly Diallo on 10-11-2024 Hematocrit (Bld) [Volume fraction] 34.8 % Low 37-47 [facility] Hemoglobin measurementOrdere d By: Wesly Diallo on 10-11-2024 Hemoglobin (Bld) [Mass/Vol] 11.9 g/dL Low 12.0-15.0 [facility] Immature granulocytes/100 WB C Auto (Bld)Ordered By: Wesly Diallo on 10-11-2024 Immature granulocytes/100 WBC (Bld) 0.300 % 0.0-0.9 [facility] Comment on above: IG% - Immature Granu locytes (promyelocytes, myelocytes and metamyelocytes) > 1% indicates that a LEFT SHIFT is Present. Ketones Test strip Ql (U)Ord ered By: Wesly Diallo on 10-11-2024 Ketones Ql (U) Negative Negative [facility] Laboratory - Chemistry and C hemistry - challengeOrdered By: Wesly Diallo on 10-11-2024 AST [Catalytic activity/Vol] 32 U/L <32 [facility] Lipase measurementOrdered By : Wesly Diallo on 10-11-2024 Lipase [Catalytic activity/Vol] 29 U/L 13-75 [facility] Comment on above: Please note:LIPASE r evised reference range effective 22. New Lipase methodology. Expected to produce lower values than the previous assay method. NEW Reference Range: 13 - 75 U/L MCV (mean corpuscular volume ) determinationOrdered By: Wesly Diallo on 10-11-2024 MCV (RBC) [Entitic vol] 86.6 fL 81-99 [facility] Mean corpuscular hemoglobin (MCH) determinationOrdered By: Wesly Diallo on 10-11-2024 MCH (RBC) [Entitic mass] 29.6 pg 27.0-32.0 [facility] Mean corpuscular hemoglobin concentration (MCHC) determinationOrdered By: Wesly Diallo on 10-11-2024 MCHC (RBC) [Mass/Vol] 34.2 g/dL 32-36 [facility] Mean platelet volume determi nationOrdered By: Wesly Diallo on 10-11-2024 Platelet mean volume (Bld) [Entitic vol] 11.0 fL 6.2-12.0 [facility] Microscopic analysis of urin e for red blood cells (RBC)Ordered By: Wesly Diallo on 10-11-2024 Microscopic analysis of urine for red blood cells (RBC) 0-5 SEEN /hpf 0-5 [facility] Monocyte percentageOrdered B y: Wesly Diallo on 10-11-2024 Monocytes/100 WBC (Bld) 6.6 % 0-10 [facility] Mucus LM Ql (Urine sed)Order ed By: Wesly Diallo on 10-11-2024 Mucus Ql (Urine sed) 0 SEEN /hpf [facility] Neutrophil percentageOrdered By: Wesly Diallo on 10-11-2024 Neutrophils/100 WBC (Bld) 52.9 % 47-70 [facility] Nitrite Test strip Ql (U)Ord ered By: Wesly Diallo on 10-11-2024 Nitrite Ql (U) Negative Negative [facility] Nucleated red blood cell per centageOrdered By: Wesly Diallo on 10-11-2024 Nucleated RBC/100 WBC (Bld) [Ratio] 0 % 0-5 [facility] Platelet countOrdered By: Christiano Diallo on 10-11-2024 Platelets (Bld) [#/Vol] 248 10*3/uL 150-450 [facility] Potassium measurement (mass/ volume)Ordered By: Wesly Diallo on 10-11-2024 Potassium (Unsp spec) [Mass/Vol] 3.1 mmol/L Low 3.3-5.1 [facility] Protein Test strip Ql (U)Ord ered By: Wesly Diallo on 10-11-2024 Protein Ql (U) 30 mg/dl High Negative [facility] RBC Auto (Bld) [#/Vol]Ordere d By: Wesly Diallo on 10-11-2024 RBC (Bld) [#/Vol] 4.02 10*6/uL Low 4.2-5.4 [facility] Serum creatinine measurement (mass/volume)Ordered By: Wesly Diallo on 10-11-2024 Creatinine [Mass/Vol] 0.74 mg/dL 0.70-1.20 [facility] Serum globulin measurementOr dered By: Wesly Diallo on 10-11-2024 Globulin (S) [Mass/Vol] 2.6 g/dL 2.2-4.2 [facility] Serum glucose measurement (m ass/volume)Ordered By: Wesly Diallo on 10-11-2024 Glucose [Mass/Vol] 87 mg/dL 70-99 [facility] Serum or plasma alanine minaya otransferase (ALT) measurementOrdered By: Wesly Diallo on 10-11-2024 ALT [Catalytic activity/Vol] 25 U/L <35 [facility] Serum or plasma albumin darinel urement (mass/volume)Ordered By: Wesly Diallo on 10-11-2024 Albumin [Mass/Vol] 4.0 g/dL 3.5-5.0 [facility] Serum or plasma alkaline peyton sphatase measurementOrdered By: Wesly Diallo on 10-11-2024 ALP [Catalytic activity/Vol] 120 U/L High 35-104 [facility] Serum or plasma calcium darinel urement (mass/volume)Ordered By: Wesly Diallo on 10-11-2024 Calcium [Mass/Vol] 8.8 mg/dL 7.6-11.0 [facility] Serum or plasma urea nitroge n measurement (mass/volume)Ordered By: Wesly Diallo on 10-11-2024 Urea nitrogen [Mass/Vol] 12 mg/dL 4-19 [facility] Sodium levelOrdered By: Wesly Diallo on 10-11-2024 Sodium [Moles/Vol] 141 mmol/L 133-145 [facility] Squamous epithelial cells de tection in urine sediment by light microscopyOrdered By: Wesly Diallo on 10-11-2024 Epithelial cells.squamous LM Ql (Urine sed) 0-5 SEEN /hpf 5-10 [facility] TSH DL <= 0.005 mIU/L QnOrde red By: Wesly Diallo on 10-11-2024 TSH Qn 4.310 uIU/mL High 0.300-4.200 [facility] Total proteinOrdered By: Doron Diallo on 10-11-2024 Protein [Mass/Vol] 6.6 g/dL 5.9-8.4 [facility] Troponin T.cardiac [Mass/vol ume] in Serum or Plasma by High sensitivity methodOrdered By: Wesly Diallo on 10-11-2024 Troponin T.cardiac High sensitivity method [Mass/Vol] 9 ng/L <14 [facility] Troponin T.cardiac High sensitivity method [Mass/Vol] 8 ng/L <14 [facility] Comment on above: Delta: 9 on 08/17/24 Urine clarityOrdered By: Doron Diallo on 10-11-2024 Clarity (U) Clear Clear [facility] Urine color determinationOrd ered By: Wesly Diallo on 10-11-2024 Color (U) Straw Yellow [facility] Urine glucose detectionOrder ed By: Wesly Diallo on 10-11-2024 Glucose Ql (U) Normal mg/dl Normal [facility] Urine leukocyte esterase det ection by dipstickOrdered By: Wesly Diallo on 10-11-2024 Leukocyte esterase Test strip Ql (U) 100 /ul High Negative [facility] Urine pHOrdered By: Wesly garcia on 10-11-2024 pH (U) 6.5 [pH] 5.0 - 8.0 [facility] Urine sediment bacteria coun t by microscopy (number/high power field)Ordered By: Wesly Diallo on 10-11-2024 Bacteria LM.HPF (Urine sed) [#/Area] 0 /[HPF] None Seen [facility] Urine specific gravity measu rementOrdered By: Wesly Diallo on 10-11-2024 Specific gravity (U) [Rel density] 1.010 1.002-1.030 [facility] Urine urobilinogen measureme ntOrdered By: Wesly Diallo on 10-11-2024 Urobilinogen Ql (U) Normal mg/dl Normal [facility] White blood cell (WBC) count Ordered By: Wesly Diallo on 10-11-2024 WBC (Bld) [#/Vol] 7.2 10*3/uL 4.4-11.0 [facility] White blood cell countOrdere d By: Wesly Diallo on 10-11-2024 White blood cell count 5-10 SEEN /hpf 0-5 [facility] 12 Lead EKGon 08-17-2024 12 Lead EKG [facility] Cardiovascular Services [address] [place] [address] 12 Lead EKG 08/17/24 1714 MR#: [id number] Acct: [id number] Name: AYALA ARANDA Rep #: [id number] : 1965 59 From: Thelma Ferguson MD Attending Dr: Status: DEP ER Ordering Dr: Kvng Pelaez MD Date: 08/17/24 Location: ED Sex: F C Admitted: Test Reason : syncope Blood Pressure : */* mmHG Vent. Rate : 48 BPM Atrial Rate : 48 BPM P-R Int : 188 ms QRS Dur : 82 ms QT Int : 490 ms P-R-T Axes : -8 -2 16 degrees QTcB Int : 437 ms Sinus bradycardia Otherwise normal ECG Confirmed by DIANE NORWOOD, MARSHALL ([id number]), photo editor MATT ROJAS ([id number]) on 08/19/2024 1:02:16 PM Referred By: Confirmed By: MARSHALL FERGUSON MD 08/19/24 1302 Date Thelma Ferguson MD CC: Dr. Emma Harmon DO; Dr. Kvng Pelaez MD Signed Normal [facility] Absolute lymphocyte countOrd ered By: Kvng Pelaez on 08-17-2024 Lymphocytes Auto (Unsp spec) [#/Vol] 2.19 10*3/uL 0.83-4.51 [facility] Absolute neutrophil countOrd ered By: Kvngrené Pelaez on 08-17-2024 Neutrophils (Bld) [#/Vol] 5.7 10*3/uL 2.0-7.7 [facility] Anion gap in Serum or Plasma Ordered By: Kvngrené Pelaez on 08-17-2024 Anion gap [Moles/Vol] 9 mmol/L 5-15 [facility] Automated lymphocyte count a s percentage of total leukocytesOrdered By: Kvng Pelaez on 08-17-2024 Lymphocytes/100 WBC Auto (Unsp spec) 24.8 % 19- [facility] BUN/creatinine ratioOrdered By: [facility] on 08-17-2024 Urea nitrogen/Creatinine [Mass ratio] 14.2 mg/mg 10- [facility] Basophil percentageOrdered B y: Kvng Pelaez on 08-17-2024 Basophils/100 WBC (Bld) 0.6 % 0-1 [facility] Bedside Glucoseon 08-17-2024 FINGERSTICK GLU 75 mg/dL Normal 74-106 [facility] Comment on above: Result Comment: IVETTE WATSON OF PATIENT CARE PER NURSING PROTOCOL Performed By: #### L 501.080 #### [facility] Laboratory [address] [place], [place], [id number] Bilirubin Test strip Ql (U)O rdered By: Kvng Pelaez on 08-17-2024 Bilirubin Ql (U) Negative Negative [facility] Bilirubin, totalOrdered By: Kvng Pelaez on 08-17-2024 Bilirubin [Mass/Vol] 0.35 mg/dL 0.00-1.30 [facility] CBC W/Diff, Automatedon 07-31 Absolute Lymph 2.19 X10 3/uL Normal 0.83-4.51 [facility] Comment on above: Performed By: #### L 500.4050, L503.6005, L100.0100 #### [facility] [address] [place], [address] Absolute Neut 5.7 X10 3/uL Normal 2.0-7.7 [facility] Comment on above: Performed By: #### L 500.4050, L503.6005, L100.0100 #### [facility] [address] [place], [address] Basophils/100 WBC (Bld) 0.6 % Normal 0-1 [facility] Comment on above: Performed By: #### L 500.4050, L503.6005, L100.0100 #### [facility] [address] [place], [address] Eosinophils/100 WBC (Bld) 2.3 % Normal 0-5 [facility] Comment on above: Performed By: #### L 500.4050, L503.6005, L100.0100 #### [facility] [address] [place], [address] Erythrocyte distribution width (RBC) [Ratio] 12.9 % Normal 11.6-14.6 [facility] Comment on above: Performed By: #### L 500.4050, L503.6005, L100.0100 #### [facility] [address] [place], [address] Hematocrit (Bld) [Volume fraction] 36.8 % Low 37-47 [facility] Comment on above: Performed By: #### L 500.4050, L503.6005, L100.0100 #### [facility] [address] [place], [address] Hemoglobin (Bld) [Mass/Vol] 12.8 g/dL Normal 12.0-15.0 [facility] Comment on above: Performed By: #### L 500.4050, L503.6005, L100.0100 #### [facility] [address] [place], [address] IG% 0.200 Normal 0.0-0.9 [facility] Comment on above: Result Comment: IG% - Immature Granulocytes (promyelocytes, myelocytes and metamyelocytes) > 1% indicates that a LEFT SHIFT is Present. Performed By: #### L 500.4050, L503.6005, L100.0100 #### [facility] [address] [place], [address] Lymphocytes/100 WBC (Bld) 24.8 % Normal 19-41 [facility] Comment on above: Performed By: #### L 500.4050, L503.6005, L100.0100 #### [facility] [address] [place], [address] MCH (RBC) [Entitic mass] 30.3 pg Normal 27.0-32.0 [facility] Comment on above: Performed By: #### L 500.4050, L503.6005, L100.0100 #### [facility] [address] [place], [address] MCHC (RBC) [Mass/Vol] 34.8 g/dL Normal 32-36 [facility] Comment on above: Performed By: #### L 500.4050, L503.6005, L100.0100 #### [facility] [address] [place], [address] MCV (RBC) [Entitic vol] 87.0 fL Normal 81-99 [facility] Comment on above: Performed By: #### L 500.4050, L503.6005, L100.0100 #### [facility] [address] [place], [address] Monocytes/100 WBC (Bld) 7.1 % Normal 0-10 [facility] Comment on above: Performed By: #### L 500.4050, L503.6005, L100.0100 #### [facility] [address] [place], [address] Neutrophils/100 WBC (Bld) 65.0 % Normal 47-70 [facility] Comment on above: Performed By: #### L 500.4050, L503.6005, L100.0100 #### [facility] [address] [place], [address] Nucleated RBC (Bld) [#/Vol] 0 10*3/uL Normal 0-5 [facility] Comment on above: Performed By: #### L 500.4050, L503.6005, L100.0100 #### [facility] [address] [place], [address] Platelet mean volume (Bld) [Entitic vol] 11.2 fL Normal 6.2-12.0 [facility] Comment on above: Performed By: #### L 500.4050, L503.6005, L100.0100 #### [facility] [address] [place], [address] Platelets (Bld) [#/Vol] 291 10*3/uL Normal 150-450 [facility] Comment on above: Performed By: #### L 500.4050, L503.6005, L100.0100 #### [facility] [address] [place], [address] RBC (Bld) [#/Vol] 4.23 10*6/uL Normal 4.2-5.4 [facility] Comment on above: Performed By: #### L 500.4050, L503.6005, L100.0100 #### [facility] [address] [place], [address] RDW SD 40.9 fl Normal 35.1-43.9 [facility] Comment on above: Performed By: #### L 500.4050, L503.6005, L100.0100 #### [facility] [address] [place], [address] WBC (Bld) [#/Vol] 8.8 10*3/uL Normal 4.4-11.0 [facility] Comment on above: Performed By: #### L 500.4050, L503.6005, L100.0100 #### [facility] [address] [place], [address] Carbon dioxide, total [Moles /volume] in Central venous bloodOrdered By: Kvng Pelaez on 08-17-2024 CO2 [Moles/Vol] 23.2 mmol/L 21.0-32.0 [facility] Chloride assayOrdered By: Ug o Pelaez on 08-17-2024 Chloride [Moles/Vol] 106 mmol/L 98-108 [facility] Comprehensive Metabolic Prof ilon 08-17-2024 Albumin [Mass/Vol] 4.0 g/dL Normal 3.5-5.0 [facility] Comment on above: Performed By: #### L 500.4050, L503.6005, L100.0100 #### [facility] [address] [place], [address] Albumin/Globulin [Mass ratio] 1.7 {ratio} Normal 0.9-2.4 [facility] Comment on above: Performed By: #### L 500.4050, L503.6005, L100.0100 #### [facility] [address] [place], [address] ALK PHOS 120 U/L High 35-104 [facility] Comment on above: Performed By: #### L 500.4050, L503.6005, L100.0100 #### [facility] [address] [place], [address] ALT [Catalytic activity/Vol] 30 U/L Normal <=34 [facility] Comment on above: Performed By: #### L 500.4050, L503.6005, L100.0100 #### [facility] [address] [place], [address] AST [Catalytic activity/Vol] 39 U/L High <=31 [facility] Comment on above: Performed By: #### L 500.4050, L503.6005, L100.0100 #### [facility] [address] [place], [address] Bilirubin [Mass/Vol] 0.35 mg/dL Normal 0.00-1.30 [facility] Comment on above: Performed By: #### L 500.4050, L503.6005, L100.0100 #### [facility] [address] [place], [address] BUN/CRE 14.2 RATIO Normal 10-20 [facility] Comment on above: Performed By: #### L 500.4050, L503.6005, L100.0100 #### [facility] [address] [place], [address] Calcium [Mass/Vol] 8.3 mg/dL Normal 7.6-11.0 [facility] Comment on above: Performed By: #### L 500.4050, L503.6005, L100.0100 #### [facility] [address] [place], [address] Chloride [Moles/Vol] 106 mmol/L Normal 98-108 [facility] Comment on above: Performed By: #### L 500.4050, L503.6005, L100.0100 #### [facility] [address] [place], [address] CO2 [Moles/Vol] 23.2 mmol/L Normal 21.0-32.0 [facility] Comment on above: Performed By: #### L 500.4050, L503.6005, L100.0100 #### [facility] [address] [place], [address] Creatinine [Mass/Vol] 0.75 mg/dL Normal 0.70-1.20 [facility] Comment on above: Performed By: #### L 500.4050, L503.6005, L100.0100 #### [facility] [address] [place], [address] ECRCL 79.28 ml/min Normal 50-250 [facility] Comment on above: Performed By: #### L 500.4050, L503.6005, L100.0100 #### [facility] [address] [place], [address] GAP 9 Normal 5-15 [facility] Comment on above: Performed By: #### L 500.4050, L503.6005, L100.0100 #### [facility] [address] [place], [address] GFR/1.73 sq M.predicted among non-blacks MDRD (S/P/Bld) [Vol rate/Area] 91 mL/min/{1.73_m2} Normal >60 [facility] Comment on above: Result Comment: mL/m in/1.73m2 CKD-EPI Creatinine Equation (2020) Performed By: #### L 500.4050, L503.6005, L100.0100 #### [facility] [address] [place], [address] Globulin (S) [Mass/Vol] 2.4 g/dL Normal 2.2-4.2 [facility] Comment on above: Performed By: #### L 500.4050, L503.6005, L100.0100 #### [facility] [address] [place], [address] Glucose [Mass/Vol] 77 mg/dL Normal 70-99 [facility] Comment on above: Performed By: #### L 500.4050, L503.6005, L100.0100 #### [facility] [address] [place], [address] Potassium [Moles/Vol] 4.7 mmol/L Normal 3.3-5.1 [facility] Comment on above: Performed By: #### L 500.4050, L503.6005, L100.0100 #### [facility] [address] [place], [address] Sodium [Moles/Vol] 138 mmol/L Normal 133-145 [facility] Comment on above: Performed By: #### L 500.4050, L503.6005, L100.0100 #### [facility] [address] [place], [address] T PROT 6.5 g/dL Normal 5.9-8.4 [facility] Comment on above: Performed By: #### L 500.4050, L503.6005, L100.0100 #### [facility] [address] [place], [address] Urea nitrogen [Mass/Vol] 11 mg/dL Normal 4-19 [facility] Comment on above: Performed By: #### L 500.4050, L503.6005, L100.0100 #### [facility] [address] [place], [address] Emergency Department Summary on 08-17-2024 Emergency Department Summary [facility] Medical Records Department [address] [place] [address] Emergency Department Summary 08/17/24 MR#: [id number] Acct: [id number] Name: AYALA ARANDA Rep #: [id number] : 1965 59 From: Kvng Pelaez MD PCP: Dr. Emma Harmon, DO Status:REG ER Location: ED HPI History of Present Illness Chief Complaint: Syncope Detail of Chief Complaint: Lightheaded and falls every time she stands up Informant: patient Onset/Context/Timing Onset: Weeks (Past 1 week has fallen 18 times. Triage documents this is been going on for 4 weeks) Context: Sudden Onset Timing: Intermittent Quality: If I stand up I become lightheaded and fall Location: Not applicable Current Severity: Mild Maximum Severity: Severe Worsened by: Upright position Relieved by: Supine position Associated Symptoms Associated Symptoms: Orthostatic lightheadedness Narrative Narrative: Patient is a 59-year-old woman. She has history of hypertension on losartan, depression, hypercholesterolemia, type 2 diabetes on metformin and hypothyroidism. Patient states she is falling 18 times the past week. She stands up she comes lightheaded and falls. Yesterday she fell and her glass frame caused a cut to the bridge of her nose. Prior to today's fall she had a headache. She denies double vision, blurred vision or loss of vision. Denies ringing or ears or decreased hearing. She denies trouble with speech or swallowing. Patient denies chest discomfort, tightness, heaviness, shortness of breath, dyspnea on exertion or orthopnea. Patient denies shortness of breath or cough. Patient denies abdominal pain, nausea, vomiting, diarrhea, black or maroon-colored stool. She denies mucus in her stool. She denies bright red blood per rectum. Patient does endorse decreased urine output. She denies hematuria, dysuria or urgency. Patient denies upper or lower extremity pain. She denies bruising easily. She denies paresthesia, anesthesia or motor weakness. Prior similar symptoms: No Recent Illness/Hospitalization : No [facility] Medical History Depression Anxiety Hypertension Hyperthyroidism Home Medications ???Medication ???Instructions ???Recorded ???Last Taken ???Type metformin 1,000 mg 24 hr 1,000 mg PO DAILY 10/08/15 6 History tablet,extended release (gastric reten.) dicyclomine 20 mg tablet 20 mg PO 4X/DAY PRN PRN abdominal 06/05/24 Unknown History pain hydroxyzine HCl 25 mg tablet 25 mg PO 4X/DAY 06/05/24 Unknown H istory levetiracetam 500 mg tablet 500 mg PO BID 06/05/24 Unknown His tory levothyroxine 112 mcg tablet 112 mcg PO DAILY 06/05/24 Unknown History losartan 25 mg tablet 25 mg PO DAILY 06/05/24 Unknown Hi story olanzapine 10 mg tablet 10 mg PO DAILY 06/05/24 Unknown Hi story polyethylene glycol 3350 17 17 g PO DAILY #119 grams 06/05/24 Unknown Rx gram/dose oral powder (Miralax) ramelteon 8 mg tablet 8 mg PO QHS 06/05/24 Unknown Histo ry rosuvastatin 20 mg tablet 20 mg PO QHS 06/05/24 Unknown Hist ory sennosides 8.6 mg capsule (senna) 8.6 mg PO DAILY PRN constipation 06/05/24 Unknown Rx #14 caps sertraline 100 mg tablet 150 mg PO 06/05/24 Unknown History zolpidem 5 mg tablet 5 mg PO QHS PRN PRN insomnia 06/05 Unknown History ferrous sulfate 325 mg (65 mg 325 mg PO BID 08/17/24 Unknown His tory iron) tablet gabapentin 300 mg capsule 300 mg PO TID 08/17/24 Unknown His tory Allergy/AdvReac Type Severity Reaction Status Date / Time diphenhydramine (From Allergy Anaphylaxis Verified 08/17/24 17:37 Benadryl) morphine Allergy Anaphylaxis Verified 08/17/24 17:37 vancomycin Allergy Anaphylaxis Verified 08/17/24 17:37 Surgical History H/O spinal fusion H/O hernia repair Social History household members: none Smoking Status: Never smoker ROS ROS ED Constitutional Constitutional ED: Denies chills, fever(s), subjective, sweats or weight loss Eyes Eyes: Denies blurry vision, change in vision or diplopia ENT ENT ED: Denies ear pain, rhinorrhea or sore throat Cardiovascular Cardiovascular: Denies chest pain, orthopnea, palpitations, paroxysmal nocturnal dyspnea or racing heartbeat Respiratory/Chest Respiratory/Chest: Denies cough, dyspnea, dyspnea on exertion, orthopnea or paroxysmal nocturnal dyspnea Gastrointestinal Gastrointestinal: Denies abdominal pain, constipation, diarrhea, melena, nausea or vomiting Genitourinary Genitourinary ED: Reports other Details: Decreased urine output ; Denies dysuria, hematuria or urinary frequency Musculoskeletal Musculoskeletal: Denies arthralgias, back pain, myalgias or neck pain Neurologic Neurologi (more content not included)... Normal [facility] Eosinophil percentageOrdered By: Kvng Pelaez on 08-17-2024 Eosinophils/100 WBC (Bld) 2.3 % 0-5 [facility] Erythrocyte distribution wid th ratioOrdered By: Kvngrené Pelaez on 08-17-2024 Erythrocyte distribution width (RBC) [Ratio] 12.9 % 11.6-14.6 [facility] Erythrocyte distribution wid th standard deviationOrdered By: Kvng Pelaez on 08-17-2024 Erythrocyte distribution width (RBC) [Ratio] 40.9 fl 35.1-43.9 [facility] Glomerular filtration rate ( GFR) estimation/1.73 sq m using serum, plasma, or whole bOrdered By: Kvngrené Pelaez on 08-17-2024 GFR/1.73 sq M.predicted among non-blacks MDRD (S/P/Bld) [Vol rate/Area] 91 mL/min/{1.73_m2} >60 [facility] Comment on above: mL/min/1.73m2 CKD-EP I Creatinine Equation (2020) Glucose measurement at [facility] deOrdered By: Kvng Pelaez on 08-17-2024 Glucose [Mass/Vol] 75 mg/dL 74-106 [facility] Comment on above: MANAGEMENT OF PATIEN T CARE PER NURSING PROTOCOL Hematocrit Auto (Bld) [Volum e fraction]Ordered By: Kvngrené Pelaez on 08-17-2024 Hematocrit (Bld) [Volume fraction] 36.8 % Low 37-47 [facility] Hemoglobin measurementOrdere d By: Kvng Pelaez on 08-17-2024 Hemoglobin (Bld) [Mass/Vol] 12.8 g/dL 12.0-15.0 [facility] Immature granulocytes/100 WB C Auto (Bld)Ordered By: Kvngrené Pelaez on 08-17-2024 Immature granulocytes/100 WBC (Bld) 0.200 % 0.0-0.9 [facility] Comment on above: IG% - Immature Granu locytes (promyelocytes, myelocytes and metamyelocytes) > 1% indicates that a LEFT SHIFT is Present. Ketones Test strip Ql (U)Ord ered By: Kvng Pelaez on 08-17-2024 Ketones Ql (U) Negative Negative [facility] L499.0042on 08-17-2024 Trop T High Sen 8 ng/L Normal <=14 [facility] Comment on above: Performed By: #### L 499.0042 #### [facility] Laboratory [address] [place], [address] L499.0043on 08-17-2024 Trop T High Sen Normal <=14 [facility] Comment on above: Result Comment: Canc elled via OM: Order cancelled - Patient discharged Performed By: #### L 501.2450, L500.4050 #### [facility] [address] [place], [address] L501.4021on 08-17-2024 Trop T High Sen 9 ng/L Normal <=14 [facility] Comment on above: Performed By: #### L 501.2450, L500.4050 #### [facility] [address] [place], [address] Laboratory - Chemistry and C hemistry - challengeOrdered By: Kvng Pelaez on 08-17-2024 AST [Catalytic activity/Vol] 39 U/L High <32 [facility] Lactic Acidon 08-17-2024 Lactate [Moles/Vol] mmol/L Normal 0.0-2.0 [facility] Comment on above: Order Comment: Y Performed By: #### L 500.4050, L503.6005, L100.0100 #### [facility] [address] [place], [address] Lactic acid measurementOrder ed By: Kvng Pelaez on 08-17-2024 Lactate [Moles/Vol] mmol/L 0.0-2.0 [facility] MCV (mean corpuscular volume ) determinationOrdered By: Kvng Pelaez on 08-17-2024 MCV (RBC) [Entitic vol] 87.0 fL 81-99 [facility] Mean corpuscular hemoglobin (MCH) determinationOrdered By: Kvng Pelaez on 08-17-2024 MCH (RBC) [Entitic mass] 30.3 pg 27.0-32.0 [facility] Mean corpuscular hemoglobin concentration (MCHC) determinationOrdered By: Kvng Pelaez on 08-17-2024 MCHC (RBC) [Mass/Vol] 34.8 g/dL 32-36 [facility] Mean platelet volume determi nationOrdered By: Kvng Pelaez on 08-17-2024 Platelet mean volume (Bld) [Entitic vol] 11.2 fL 6.2-12.0 [facility] Microscopic analysis of urin e for red blood cells (RBC)Ordered By: Kvng Pelaez on 08-17-2024 Microscopic analysis of urine for red blood cells (RBC) 0-5 SEEN /hpf 0-5 [facility] Monocyte percentageOrdered B y: Kvng Pelaez on 08-17-2024 Monocytes/100 WBC (Bld) 7.1 % 0-10 [facility] Mucus LM Ql (Urine sed)Order ed By: Kvng Pelaez on 08-17-2024 Mucus Ql (Urine sed) 0 SEEN /hpf [facility] Neutrophil percentageOrdered By: Kvng Pelaez on 08-17-2024 Neutrophils/100 WBC (Bld) 65.0 % 47-70 [facility] Nitrite Test strip Ql (U)Ord ered By: Kvng Pelaez on 08-17-2024 Nitrite Ql (U) Negative Negative [facility] Nucleated red blood cell per centageOrdered By: Kvng Pelaez on 08-17-2024 Nucleated RBC/100 WBC (Bld) [Ratio] 0 % 0-5 [facility] Platelet countOrdered By: Prema Pelaez on 08-17-2024 Platelets (Bld) [#/Vol] 291 10*3/uL 150-450 [facility] Potassium measurement (mass/ volume)Ordered By: Kvng Pelaez on 08-17-2024 Potassium (Unsp spec) [Mass/Vol] 4.7 mmol/L 3.3-5.1 [facility] Protein Test strip Ql (U)Ord ered By: Kvng Pelaez on 08-17-2024 Protein Ql (U) 15 mg/dl High Negative [facility] RBC Auto (Bld) [#/Vol]Ordere d By: Kvng Pelaez on 08-17-2024 RBC (Bld) [#/Vol] 4.23 10*6/uL 4.2-5.4 [facility] Serum creatinine measurement (mass/volume)Ordered By: Kvng Pelaez on 08-17-2024 Creatinine [Mass/Vol] 0.75 mg/dL 0.70-1.20 [facility] Serum globulin measurementOr dered By: Kvng Pelaez on 08-17-2024 Globulin (S) [Mass/Vol] 2.4 g/dL 2.2-4.2 [facility] Serum glucose measurement (m ass/volume)Ordered By: Kvng Pelaez on 08-17-2024 Glucose [Mass/Vol] 77 mg/dL 70-99 [facility] Serum or plasma alanine minaya otransferase (ALT) measurementOrdered By: Kvngrené Pelaez on 08-17-2024 ALT [Catalytic activity/Vol] 30 U/L <35 [facility] Serum or plasma albumin darinel urement (mass/volume)Ordered By: Kvng Pelaez on 08-17-2024 Albumin [Mass/Vol] 4.0 g/dL 3.5-5.0 [facility] Serum or plasma albumin/glob ulin mass ratioOrdered By: Kvngrené Pelaez on 08-17-2024 Albumin/Globulin [Mass ratio] 1.7 {ratio} 0.9-2.4 [facility] Serum or plasma alkaline peyton sphatase measurementOrdered By: Kvng Pelaez 08-17-2024 ALP [Catalytic activity/Vol] 120 U/L High 35-104 [facility] Serum or plasma calcium darinel urement (mass/volume)Ordered By: Kvng Pelaez 08-17-2024 Calcium [Mass/Vol] 8.3 mg/dL 7.6-11.0 [facility] Serum or plasma urea nitroge n measurement (mass/volume)Ordered By: Kvng Pelaez 08-17-2024 Urea nitrogen [Mass/Vol] 11 mg/dL 4-19 [facility] Sodium levelOrdered By: Kvng Pelaez 08-17-2024 Sodium [Moles/Vol] 138 mmol/L 133-145 [facility] Squamous epithelial cells de tection in urine sediment by light microscopyOrdered By: Kvng Pelaez 08-17-2024 Epithelial cells.squamous LM Ql (Urine sed) 0-5 SEEN /hpf 5-10 [facility] TSH DL <= 0.005 mIU/L QnOrde red By: Kvng Pelaez on 08-17-2024 TSH Qn 4.980 uIU/mL High 0.300-4.200 [facility] Thyroid Stim Hormone (TSH)on 08-17-2024 TSH 4.980 uIU/mL High 0.300-4.200 [facility] Comment on above: Performed By: #### L 501.2450, L500.4050 #### [facility] Laboratory [address] [place], [address] Total proteinOrdered By: Knvg Pelaez on 08-17-2024 Protein [Mass/Vol] 6.5 g/dL 5.9-8.4 [facility] Troponin T.cardiac [Mass/vol ume] in Serum or Plasma by High sensitivity methodOrdered By: Kvng Pelaez on 08-17-2024 Troponin T.cardiac High sensitivity method [Mass/Vol] 8 ng/L <14 [facility] Troponin T.cardiac High sensitivity method [Mass/Vol] 9 ng/L <14 [facility] Urinalysis, Completeon 08-17 EPI,SQUAMOUS 0-5 SEEN Normal 5-10 [facility] Comment on above: Order Comment: CLEAN CATCH Performed By: #### L 501.2450, L500.4050 #### [facility] [address] [place], [address] RBC 0-5 SEEN Normal 0-5 [facility] Comment on above: Order Comment: CLEAN CATCH Performed By: #### L 501.2450, L500.4050 #### [facility] [address] [place], [address] WBC 0-5 SEEN Normal 0-5 [facility] Comment on above: Order Comment: CLEAN CATCH Performed By: #### L 501.2450, L500.4050 #### [facility] [address] [place], [address] BACTERIA 0 SEEN Normal None Seen [facility] Comment on above: Order Comment: CLEAN CATCH Performed By: #### L 501.2450, L500.4050 #### [facility] [address] [place], [address] Mucus Ql (Urine sed) 0 SEEN Normal [facility] Comment on above: Order Comment: CLEAN CATCH Performed By: #### L 501.2450, L500.4050 #### [facility] [address] [place], [address] Urine clarityOrdered By: Kvng Pelaez on 08-17-2024 Clarity (U) Clear Clear [facility] Urine color determinationOrd ered By: Kvng Pelaez on 08-17-2024 Color (U) Yellow Yellow [facility] Urine glucose detectionOrder ed By: Kvng Pelaez on 08-17-2024 Glucose Ql (U) Normal mg/dl Normal [facility] Urine leukocyte esterase det ection by dipstickOrdered By: Kvng Pelaez on 08-17-2024 Leukocyte esterase Test strip Ql (U) Negative Negative [facility] Urine pHOrdered By: Kvng merritt on 08-17-2024 pH (U) 6.0 [pH] 5.0 - 8.0 [facility] Urine sediment bacteria coun t by microscopy (number/high power field)Ordered By: Kvng Pelaez on 08-17-2024 Bacteria LM.HPF (Urine sed) [#/Area] 0 /[HPF] None Seen [facility] Urine specific gravity measu rementOrdered By: Kvng Pelaez on 08-17-2024 Specific gravity (U) [Rel density] 1.015 1.002-1.030 [facility] Urine urobilinogen measureme ntOrdered By: Kvng Pelaez on 08-17-2024 Urobilinogen Ql (U) Normal mg/dl Normal [facility] White blood cell (WBC) count Ordered By: Kvng Pelaez on 08-17-2024 WBC (Bld) [#/Vol] 8.8 10*3/uL 4.4-11.0 [facility] White blood cell countOrdere d By: Kvng Pelaez on 08-17-2024 White blood cell count 0-5 SEEN /hpf 0-5 [facility] MRI SPINE CERVICAL W/ + W/O CONTRASTon 07-27-2024 MRI SPINE CERVICAL W/ + W/O CONTRAST ORIGINAL EXAMINATION: MRI OF THE CERVICAL SPINE WITHOUT AND WITH CONTRAST 07/27/2024 1:49 pm: TECHNIQUE: Multiplanar multisequence MRI of the cervical spine was performed without and with the administration of intravenous contrast. COMPARISON: None. HISTORY: ORDERING SYSTEM PROVIDED HISTORY: Reason for Exam: bilateral arm weakness, hx spine surgery FINDINGS: BONES/ALIGNMENT: Changes status post C7-T1 ACDF. There is fusion of the C7 and T1 vertebral bodies and posterior elements. There is normal alignment of the spine. The vertebral body heights are maintained. The bone marrow signal appears unremarkable. SPINAL CORD: No abnormal cord signal is seen. SOFT TISSUES: No abnormal enhancement of the cervical spine. Prevertebral and paraspinal soft tissues are unremarkable. Cervical fat planes appear preserved. Extracranial cerebrovascular flow voids appear maintained. C2-C3: There is no significant disc protrusion, spinal canal stenosis or neural foraminal narrowing. C3-C4: Minimal asymmetric left disc osteophyte complex without significant narrowing of the spinal canal. Facet and uncovertebral arthropathy result in mild left neural foraminal stenosis. C4-C5: There is no significant disc protrusion, spinal canal stenosis or neural foraminal narrowing. C5-C6: Questionable tiny central posterior annular tear without significant disc bulge or herniation. No significant narrowing of the spinal canal. Facet and uncovertebral arthropathy result in mild left neural foraminal stenosis. C6-C7: Minimal diffuse disc bulge without significant narrowing of the spinal canal. No significant neural foraminal stenosis. C7-T1: At the level of the C7-T1 discectomy, there is an asymmetric left osseous prominence resulting in mild narrowing of the spinal canal. No significant neural foraminal stenosis. IMPRESSION: 1. No acute abnormality of the cervical spine. 2. Mild multilevel degenerative changes as above. Interpreted by: Mayte Zapien Preliminary Report By: Mayte Zapien Electronically signed By Mayte Zapien Dictated Date: 07/27/2024 3:07:38 PM Prelim Date: 07/27/2024 3:20:14 PM Sign Date: 07/27/2024 3:20:14 PM Ordering Provider: EMMA HARMON [facility] MALBRon 07-11-2024 U Creatinine 93.3 mg/dL Normal 29.0-226.0 [facility] Comment on above: Performed By: #### M ALBR #### [address] [address] U Microalb 20.0 mg/L Normal [facility] Comment on above: Performed By: #### M ALBR #### [address] [address] U Ratio Alb/Cre 21 mg/G Normal 0-30 [facility] Comment on above: Performed By: #### M ALBR #### [address] [address] .Auto Diffon 06-13-2024 Basophil, Absolute 0.0 10 3/mcL Normal 0.0-0.3 [facility] Comment on above: Performed By: #### A DIFF, LIP, MDW, CBC, ANEU, GFR, CMP ####[address] [place], [place] [address] Basophils/100 WBC (Bld) 0.5 % Normal 0.0-2.5 [facility] Comment on above: Performed By: #### A DIFF, LIP, MDW, CBC, ANEU, GFR, CMP ####[address] [place], [place] [address] Eosinophil, Absolute 0.1 10 3/mcL Normal 0.0-0.7 [facility] Comment on above: Performed By: #### A DIFF, LIP, MDW, CBC, ANEU, GFR, CMP ####[address] [address] Eosinophils/100 WBC (Bld) 1.6 % Normal 0.0-6.0 [facility] Comment on above: Performed By: #### A DIFF, LIP, MDW, CBC, ANEU, GFR, CMP ####[address] [place], [place] [address] Lymphocyte, Absolute 2.2 10 3/mcL Normal 0.9-4.3 [facility] Comment on above: Performed By: #### A DIFF, LIP, MDW, CBC, ANEU, GFR, CMP ####[address] [place], [place] [address] Lymphocytes/100 WBC (Bld) 30.9 % Normal 20.0-40.0 [facility] Comment on above: Performed By: #### A DIFF, LIP, MDW, CBC, ANEU, GFR, CMP ####[address] [place], [place] [address] Monocyte, Absolute 0.5 10 3/mcL Normal 0.1-1.4 [facility] Comment on above: Performed By: #### A DIFF, LIP, MDW, CBC, ANEU, GFR, CMP ####[address] [place], [place] [address] Monocytes/100 WBC (Bld) 6.9 % Normal 2.0-13.0 [facility] Comment on above: Performed By: #### A DIFF, LIP, MDW, CBC, ANEU, GFR, CMP ####[address] [place], [place] [address] Neutrophils/100 WBC (Bld) 60.1 % Normal 50.0-75.0 [facility] Comment on above: Performed By: #### A DIFF, LIP, MDW, CBC, ANEU, GFR, CMP ####[address] [place], [place] [address] .GFRon 06-13-2024 Estimated Glomerular Filtration Rate 106 ml/min/1.73sqm Normal [facility] Comment on above: Result Comment: Stages of Chronic Kidney Disease (CKD) Stage Description eGFR(ml/min/1.73 sq.m.) CKD 1 Normal kidney function or >=90 normal kindney function with possible kidney damage (ex. Proteinuria) CKD 2 Kidney damage with mild loss 60-89 of kidney function CKD 3a Mild to moderate loss of kidney 45-59 function CKD 3b Moderate to severe loss of 30-44 of kindey function CKD 4 Severe loss of kidney function 15-29 CKD 5 Kidney failure <15 Note: (go live 2024) the eGFR calculation was updated to the 2020 CKD-EPI creatinine equation without a race factor to calculate the eGFR results. Performed By: #### A DIFF, LIP, MDW, CBC, ANEU, GFR, CMP ####[place] [id number] [place] [address] .MDWon 06-13-2024 Monocyte Distribution Width 17.77 Normal 0.00-20.00 [facility] Comment on above: Result Comment: For ED adult patients suspected of sepsis, MDW<=20.0 does not rule out sepsis or risk of sepsis Performed By: #### A DIFF, LIP, MDW, CBC, ANEU, GFR, CMP ####[place] [id number] [place] [address] .NEUABSon 06-13-2024 Neutrophil, Absolute 4.3 10 3/mcL Normal 2.3-8.1 [facility] Comment on above: Performed By: #### A DIFF, LIP, MDW, CBC, ANEU, GFR, CMP ####[address] [place] [address] CBCon 06-13-2024 Erythrocyte distribution width (RBC) [Ratio] 13.3 % Normal 11.5-15.5 [facility] Comment on above: Performed By: #### A DIFF, LIP, MDW, CBC, ANEU, GFR, CMP ####[place] [address] Hematocrit (Bld) [Volume fraction] 35.7 % Normal 34.0-46.0 [facility] Comment on above: Performed By: #### A DIFF, LIP, MDW, CBC, ANEU, GFR, CMP ####[place] [address] Hgb 12.1 G/dL Normal 12.0-16.0 [facility] Comment on above: Performed By: #### A DIFF, LIP, MDW, CBC, ANEU, GFR, CMP ####[place] [address] MCH (RBC) [Entitic mass] 29.3 pg Normal 27.0-33.0 [facility] Comment on above: Performed By: #### A DIFF, LIP, MDW, CBC, ANEU, GFR, CMP ####[place] [id number] [place], [place] [address] MCHC 34.0 G/dL Normal 32.0-36.0 [facility] Comment on above: Performed By: #### A DIFF, LIP, MDW, CBC, ANEU, GFR, CMP ####[address] [place] [id number] MCV (RBC) [Entitic vol] 86.1 fL Normal 80.0-99.0 [facility] Comment on above: Performed By: #### A DIFF, LIP, MDW, CBC, ANEU, GFR, CMP ####[address] [place], [place] [address] Platelet 245 10 3/mcL Normal 150-450 [facility] Comment on above: Performed By: #### A DIFF, LIP, MDW, CBC, ANEU, GFR, CMP ####[place] [address] Platelet mean volume (Bld) [Entitic vol] 7.8 fL Normal 6.6-10.5 [facility] Comment on above: Performed By: #### A DIFF, LIP, MDW, CBC, ANEU, GFR, CMP ####[address] [place], [place] [address] RBC 4.14 10 6/mcL Normal 4.10-5.30 [facility] Comment on above: Performed By: #### A DIFF, LIP, MDW, CBC, ANEU, GFR, CMP ####[address] [place], [place] [address] WBC 7.2 10 3/mcL Normal 4.5-10.8 [facility] Comment on above: Performed By: #### A DIFF, LIP, MDW, CBC, ANEU, GFR, CMP ####[address] [place], [place] [address] CMPon 06-13-2024 Albumin Level 3.6 G/dL Normal 3.5-5.0 [facility] Comment on above: Performed By: #### A DIFF, LIP, MDW, CBC, ANEU, GFR, CMP ####[address] [address] Albumin/Globulin [Mass ratio] 1.2 {ratio} Normal 1.1-2.5 [facility] Comment on above: Performed By: #### A DIFF, LIP, MDW, CBC, ANEU, GFR, CMP ####[address] [place] [id number] ALP [Catalytic activity/Vol] 138 U/L High 40-135 [facility] Comment on above: Performed By: #### A DIFF, LIP, MDW, CBC, ANEU, GFR, CMP ####[address] [place] [address] ALT [Catalytic activity/Vol] 34 U/L Normal 14-59 [facility] Comment on above: Performed By: #### A DIFF, LIP, MDW, CBC, ANEU, GFR, CMP ####[place] [id number] AST [Catalytic activity/Vol] 29 U/L Normal 10-40 [facility] Comment on above: Performed By: #### A DIFF, LIP, MDW, CBC, ANEU, GFR, CMP ####[address] [place], [place] [address] Bili Total 0.3 mg/dL Normal 0.2-1.0 [facility] Comment on above: Result Comment: Use of this assay is not recommended for patients undergoing treatment with eltrombopag due to the potential for falsely elevated results. Performed By: #### A DIFF, LIP, MDW, CBC, ANEU, GFR, CMP ####[address] [place], [place] [address] BUN/Creatinine Ratio 22 ratio Normal 7-27 [facility] Comment on above: Performed By: #### A DIFF, LIP, MDW, CBC, ANEU, GFR, CMP ####[address] [place], [place] [address] Calcium [Mass/Vol] 8.6 mg/dL Normal 8.4-10.2 [facility] Comment on above: Performed By: #### A DIFF, LIP, MDW, CBC, ANEU, GFR, CMP ####[address] [place], [place] [address] Chloride [Moles/Vol] 109 mmol/L High 98-107 [facility] Comment on above: Performed By: #### A DIFF, LIP, MDW, CBC, ANEU, GFR, CMP ####[place] [id number] CO2 [Moles/Vol] 24 mmol/L Normal 22-29 [facility] Comment on above: Performed By: #### A DIFF, LIP, MDW, CBC, ANEU, GFR, CMP ####[address] [place] [address] Creatinine [Mass/Vol] 0.54 mg/dL Low 0.55-1.02 [facility] Comment on above: Result Comment: Test ing performed on [employer] Dimension EXL analyzer using a modified kinetic Catia technique. Performed By: #### A DIFF, LIP, MDW, CBC, ANEU, GFR, CMP ####[address] [place], [place] [address] Electrolyte Balance 10.0 mEq/L Normal 4.0-15.0 [facility] Comment on above: Performed By: #### A DIFF, LIP, MDW, CBC, ANEU, GFR, CMP ####[place] [address] Globulin 3.1 G/dL Normal 1.5-3.8 [facility] Comment on above: Performed By: #### A DIFF, LIP, MDW, CBC, ANEU, GFR, CMP ####[place] [address] Glucose [Mass/Vol] 94 mg/dL Normal 70-105 [facility] Comment on above: Performed By: #### A DIFF, LIP, MDW, CBC, ANEU, GFR, CMP ####[place] [address] Potassium [Moles/Vol] 3.7 mmol/L Normal 3.5-5.1 [facility] Comment on above: Performed By: #### A DIFF, MD NATHANW, CBC, ANEU, GFR, CMP ####[address] [place], [place] [address] Sodium [Moles/Vol] 143 mmol/L Normal 136-145 [facility] Comment on above: Performed By: #### A DIFF, LIP, MDW, CBC, ANEU, GFR, CMP ####[address] [place], [place] [address] Total Protein 6.7 G/dL Normal 6.4-8.2 [facility] Comment on above: Performed By: #### A DIFF, MD NATHANW, CBC, ANEU, GFR, CMP ####[address] [place], [place] [address] Urea nitrogen [Mass/Vol] 12 mg/dL Normal 7-18 [facility] Comment on above: Performed By: #### A DIFF, NATHAN MDW, CBC, ANEU, GFR, CMP ####[address] [place], [place] [address] CT ABD/PELVIS W/ IV CONTRAST ONLYon 06-13-2024 CT ABD/PELVIS W/ IV CONTRAST ONLY ORIGINAL EXAMINATION: CT OF THE ABDOMEN AND PELVIS WITH CONTRAST 06/13/2024 8:34 pm TECHNIQUE: CT of the abdomen and pelvis was performed with the administration of intravenous contrast. Multiplanar reformatted images are provided for review. Automated exposure control, iterative reconstruction, and/or weight based adjustment of the mA/kV was utilized to reduce the radiation dose to as low as reasonably achievable. COMPARISON: CT abdomen pelvis November 30, 2023 HISTORY: ORDERING SYSTEM PROVIDED HISTORY: Reason for Exam: pain FINDINGS: Lower Chest: No focal consolidation. Organs: No acute findings. Cholecystectomy. Mild intrahepatic and extrahepatic biliary ductal dilatation is presumably related. Chronic small cystic structure in the head of the pancreas which could reflect a pancreatic cyst or side branch IPMN. Nonobstructing left mid kidney nephrolithiasis. A few small renal cysts. GI/Bowel: No bowel obstruction, pneumoperitoneum, or ascites. Gastric bypass postsurgical changes. Postsurgical changes of the distal colon. Pelvis: Hysterectomy. Bladder unremarkable. Peritoneum/Retroperiton eum: Nonaneurysmal abdominal aorta. No enlarged lymph nodes. Bones/Soft Tissues: Postsurgical changes of the lumbosacral spine. Anterior abdominal wall postsurgical change. IMPRESSION: No acute findings. Interpreted by: Robinson Hurt Preliminary Report By: Robinson Hurt Electronically signed By Robinson Hurt Dictated Date: 06/13/2024 8:37:49 PM Prelim Date: 06/13/2024 8:42:58 PM Sign Date: 06/13/2024 8:42:58 PM Ordering Provider: JAYLYN ZABALA Normal [facility] LIPon 06-13-2024 Lipase Level 29 U/L Normal 16-77 [facility] Comment on above: Performed By: #### A DIFF, LIP, MDW, CBC, ANEU, GFR, CMP ####[address] [place], [place] [address] UAon 06-13-2024 Color (U) Yellow Normal [facility] Comment on above: Performed By: #### U A ####[place] [address] [place] [address] Glucose (U) [Mass/Vol] Negative Normal Negative [facility] Comment on above: Performed By: #### U A ####[id number] [place], [place] [address] Ketones Ql (U) Negative Normal Negative [facility] Comment on above: Performed By: #### U A ####[address] [place] [address] UA Appear Clear Normal Clear [facility] Comment on above: Performed By: #### U A ####[place] [address] [place], [place] [address] UA Blood Negative Normal Negative [facility] Comment on above: Performed By: #### U A ####[address] [place], [place] [address] UA Leuk Est Negative Normal Negative [facility] Comment on above: Performed By: #### U A ####[address] [place] [address] UA Nitrite Negative Normal Negative [facility] Comment on above: Performed By: #### U A ####[address] [place] [address] UA pH 5.5 Normal 5.0 - 8.0 [facility] Comment on above: Performed By: #### U A ####[address] [place] [address] UA Protein Negative Normal Negative [facility] Comment on above: Performed By: #### U A ####[address] [place] [address] UA Spec Grav >=1.030 Abnormal 1.015-1.025 [facility] Comment on above: Performed By: #### U A ####[address] [place] [address] UA Specimen Type Clean Catch Normal [facility] Comment on above: Performed By: #### U A ####[address] [place] [address] UA Urobilinogen 0.2 E.U./dL Normal 0.2-1.0 [facility] Comment on above: Performed By: #### U A ####[address] [place] [address] Urobilinogen (U) [Mass/Vol] Negative Normal Negative [facility] Comment on above: Performed By: #### U A ####[address] [place] [address] Abdomen/Pelvis W IV Cont ONL Yon 06-05-2024 Abdomen/Pelvis W IV Cont ONLY [facility] Imaging Services [address] [place] [address] Abdomen/Pelvis W IV Cont ONLY MR#: [id number] Acct: [id number] Name: AYALA ARANDA Rep #: [id number] : 1965 F 59 From: Denny Lucas DO PCP: Dr. Emma Harmon, DO Status: REG ER Study: Abdomen/Pelvis W IV Cont ONLY Date of Exam: Exam# [id number] Ordering Dr: Naya Bartlett PROCEDURE: ABDOMEN/PELVIS W IV CONT ONLY 06/05/2024 REASON FOR EXAM: ABDOMINAL PAIN, CONSTIPATION Surgical history of spinal fusion and hernia repair. TECHNIQUE: Abdomen and pelvis CT with intravenous contrast. Coronal and Sagittal reconstruction series were provided. PATIENT PREPARATION: Per protocol ORAL CONTRAST TYPE: None. AMOUNT: mL CONTRAST: Isovue 370 VOLUME: 100 mL IV One or more dose reduction techniques were used (e.g., Automated exposure control, adjustment of the mA and/or kV according to patient size, use of iterative reconstruction technique. RADIATION DOSE SUMMARY: CTDlvol: 16.55 mGy DLP: 991.11 mGycm COMPARISON: None. FINDINGS: Lung bases: Lung bases are clear. No pleural effusions. Postsurgical changes in the stomach Cholecystectomy clips are seen in the gallbladder fossa. The liver, spleen, pancreas, adrenals and kidneys are unremarkable. Bladder: Unremarkable Reproductive Organs: Post hysterectomy Bowel: Moderate volume of feces throughout the colon. Appendix: No evidence of appendicitis. Lymph nodes: No lymphadenopathy. Vasculature: Mild calcific plaque burden in the abdominal aorta Peritoneum / Retroperitoneum: No free air. No free fluid. Bones: Unremarkable. CT/Abdomen/Pelvis W IV Cont ONLY IMPRESSION: UNREMARKABLE CONTRAST-ENHANCED CT OF THE ABDOMEN AND PELVIS Moderate volume of feces throughout colon Reading Location: [facility] CC: Dr. Emma Harmon DO; [employer]: Signed Normal [facility] Absolute lymphocyte countOrd ered By: Naya Bartlett on 06-05-2024 Lymphocytes Auto (Unsp spec) [#/Vol] 2.62 10*3/uL 0.83-4.51 [facility] Absolute neutrophil countOrd ered By: Naya Bartlett on 06-05-2024 Neutrophils (Bld) [#/Vol] 3.4 10*3/uL 2.0-7.7 [facility] Anion gap in Serum or Plasma Ordered By: Naya Bartlett on 06-05-2024 Anion gap [Moles/Vol] 13 mmol/L 5-15 [facility] Automated lymphocyte count a s percentage of total leukocytesOrdered By: Naya Bartlett on 06-05-2024 Lymphocytes/100 WBC Auto (Unsp spec) 37.8 % 19-41 [facility] BUN/creatinine ratioOrdered By: Naya Bartlett on 06-05-2024 Urea nitrogen/Creatinine [Mass ratio] 25.7 mg/mg High 10-20 [facility] Basophil percentageOrdered B y: Naya Bartlett on 06-05-2024 Basophils/100 WBC (Bld) 0.7 % 0-1 [facility] Bilirubin Test strip Ql (U)O rdered By: Naya Bartlett on 06-05-2024 Bilirubin Ql (U) Negative Negative [facility] Bilirubin, totalOrdered By: Naya Bartlett on 06-05-2024 Bilirubin [Mass/Vol] 0.28 mg/dL 0.00-1.30 [facility] CBC W/Diff, Automatedon Absolute Lymph 2.62 X10 3/uL Normal 0.83-4.51 [facility] Comment on above: Performed By: #### L [id number], L500.4050 #### [facility] [address] [place], [address] Absolute Neut 3.4 X10 3/uL Normal 2.0-7.7 [facility] Comment on above: Performed By: #### L 501.2450, [id number] #### [facility] [address] [place], [address] Basophils/100 WBC (Bld) 0.7 % Normal 0-1 [facility] Comment on above: Performed By: #### L 501.2450, [id number] #### [facility] [address] [place], [address] Eosinophils/100 WBC (Bld) 3.3 % Normal 0-5 [facility] Comment on above: Performed By: #### L 501.2450, [id number] #### [facility] [address] [place], [address] Erythrocyte distribution width (RBC) [Ratio] 13.0 % Normal 11.6-14.6 [facility] Comment on above: Performed By: #### L 501.2450, [id number] #### [facility] [address] [place], [address] Hematocrit (Bld) [Volume fraction] 36.6 % Low 37-47 [facility] Comment on above: Performed By: #### L 501.2450, [id number] #### [facility] [address] [place], [address] Hemoglobin (Bld) [Mass/Vol] 12.5 g/dL Normal 12.0-15.0 [facility] Comment on above: Performed By: #### L 501.2450, [id number] #### [facility] [address] [place], [address] IG% 0.300 Normal 0.0-0.9 [facility] Comment on above: Result Comment: IG% - Immature Granulocytes (promyelocytes, myelocytes and metamyelocytes) > 1% indicates that a LEFT SHIFT is Present. Performed By: #### L 501.2450, [id number] #### [facility] [address] [place], [address] Lymphocytes/100 WBC (Bld) 37.8 % Normal 19-41 [facility] Comment on above: Performed By: #### L 501.2450, [id number] #### [facility] [address] [place], [address] MCH (RBC) [Entitic mass] 29.8 pg Normal 27.0-32.0 [facility] Comment on above: Performed By: #### L 501.2450, [id number] #### [facility] [address] [place], [address] MCHC (RBC) [Mass/Vol] 34.2 g/dL Normal 32-36 [facility] Comment on above: Performed By: #### L 501.2450, [id number] #### [facility] [address] [place], [address] MCV (RBC) [Entitic vol] 87.4 fL Normal 81-99 [facility] Comment on above: Performed By: #### L 501.2450, [id number] #### [facility] [address] [place], [address] Monocytes/100 WBC (Bld) 8.2 % Normal 0-10 [facility] Comment on above: Performed By: #### L 501.2450, [id number] #### [facility] [address] [place], [address] Neutrophils/100 WBC (Bld) 49.7 % Normal 47-70 [facility] Comment on above: Performed By: #### L 501.2450, [id number] #### [facility] [address] [place], [address] Nucleated RBC (Bld) [#/Vol] 0 10*3/uL Normal 0-5 [facility] Comment on above: Performed By: #### L 501.2450, [id number] #### [facility] [address] [place], [address] Platelet mean volume (Bld) [Entitic vol] 10.1 fL Normal 6.2-12.0 [facility] Comment on above: Performed By: #### L 501.2450, [id number] #### [facility] [address] [place], [address] Platelets (Bld) [#/Vol] 260 10*3/uL Normal 150-450 [facility] Comment on above: Performed By: #### L 501.2450, [id number] #### [facility] [address] [place], [address] RBC (Bld) [#/Vol] 4.19 10*6/uL Low 4.2-5.4 [facility] Comment on above: Performed By: #### L 501.2450, [id number] #### [facility] [address] [place], [address] RDW SD 41.6 fl Normal 35.1-43.9 [facility] Comment on above: Performed By: #### L 501.2450, [id number] #### [facility] [address] [place], [address] WBC (Bld) [#/Vol] 6.9 10*3/uL Normal 4.4-11.0 [facility] Comment on above: Performed By: #### L 501.2450, [id number] #### [facility] [address] [place], [address] Carbon dioxide, total [Moles /volume] in Central venous bloodOrdered By: Naya Bartltet on 06-05-2024 CO2 [Moles/Vol] 17.6 mmol/L Low 21.0-32.0 [facility] Chloride assayOrdered By: [place] Bartlett on 06-05-2024 Chloride [Moles/Vol] 110 mmol/L High 98-108 [facility] Comprehensive Metabolic Prof ilon 06-05-2024 Albumin [Mass/Vol] 4.2 g/dL Normal 3.5-5.0 [facility] Comment on above: Performed By: #### L 501.2450, [id number] #### [facility] [address] [place], [address] Albumin/Globulin [Mass ratio] 1.7 {ratio} Normal 0.9-2.4 [facility] Comment on above: Performed By: #### L 501.2450, [id number] #### [facility] [address] [place], [address] ALK PHOS 110 U/L High 35-104 [facility] Comment on above: Performed By: #### L 501.2450, [id number] #### [facility] [address] [place], [address] ALT [Catalytic activity/Vol] 29 U/L Normal <=34 [facility] Comment on above: Performed By: #### L 501.2450, [id number] #### [facility] [address] [place], [address] AST [Catalytic activity/Vol] 35 U/L High <=31 [facility] Comment on above: Performed By: #### L 501.2450, [id number] #### [facility] [address] [place], [address] Bilirubin [Mass/Vol] 0.28 mg/dL Normal 0.00-1.30 [facility] Comment on above: Performed By: #### L 501.2450, [id number] #### [facility] [address] [place], [address] BUN/CRE 25.7 RATIO High 10-20 [facility] Comment on above: Performed By: #### L 501.2450, [id number] #### [facility] [address] [place], [address] Calcium [Mass/Vol] 8.6 mg/dL Normal 7.6-11.0 [facility] Comment on above: Performed By: #### L 501.2450, [id number] #### [facility] [address] [place], [address] Chloride [Moles/Vol] 110 mmol/L High 98-108 [facility] Comment on above: Performed By: #### L 501.2450, [id number] #### [facility] [address] [place], [address] CO2 [Moles/Vol] 17.6 mmol/L Low 21.0-32.0 [facility] Comment on above: Performed By: #### L 501.2450, [id number] #### [facility] [address] [place], [address] Creatinine [Mass/Vol] 0.56 mg/dL Low 0.70-1.20 [facility] Comment on above: Performed By: #### L 501.2450, [id number] #### [facility] [address] [place], [address] ECRCL 102.63 ml/min Normal 50-250 [facility] Comment on above: Performed By: #### L 501.2450, [id number] #### [facility] [address] [place], [address] GAP 13 Normal 5-15 [facility] Comment on above: Performed By: #### L 501.2450, [id number] #### [facility] [address] [place], [address] GFR/1.73 sq M.predicted among non-blacks MDRD (S/P/Bld) [Vol rate/Area] 105 mL/min/{1.73_m2} Normal >60 [facility] Comment on above: Result Comment: mL/m in/1.73m2 CKD-EPI Creatinine Equation (2020) Performed By: #### L 501.2450, L500.4050 #### [facility] [address] [place], [address] Globulin (S) [Mass/Vol] 2.4 g/dL Normal 2.2-4.2 [facility] Comment on above: Performed By: #### L 501.2450, [id number] #### [facility] [address] [place], [address] Glucose [Mass/Vol] 102 mg/dL High 70-99 [facility] Comment on above: Performed By: #### L 501.2450, [id number] #### [facility] [address] [place], [address] Potassium [Moles/Vol] 3.3 mmol/L Normal 3.3-5.1 [facility] Comment on above: Performed By: #### L 501.2450, L500.4050 #### [facility] [address] [place], [address] Sodium [Moles/Vol] 141 mmol/L Normal 133-145 [facility] Comment on above: Performed By: #### L 501.2450, [id number] #### [facility] [address] [place], [address] T PROT 6.6 g/dL Normal 5.9-8.4 [facility] Comment on above: Performed By: #### L 501.2450, [id number] #### [facility] [address] [place], [address] Urea nitrogen [Mass/Vol] 14 mg/dL Normal 4-19 [facility] Comment on above: Performed By: #### L 501.2450, L500.4050 #### [facility] [address] [place], [address] Emergency Department Summary on 06-05-2024 Emergency Department Summary [facility] Medical Records Department [address] [place] [address] Emergency Department Summary 06/05/24 MR#: [id number] Acct: [id number] Name: AYALA ARANDA Rep #: [id number] : 1965 59 From: Naya POST PCP: Dr. Emma Harmon, DO Status:DEP ER Location: ED HPI HPI - GI History of Present Illness Chief Complaint: Abd Pain Narrative Narrative: Patient presenting today with abdominal pain she has had over the past week. She reports swelling to the right lower quadrant of her abdomen and pain that radiates across her mid abdomen. She has not had a bowel movement in about a week which is unusual for her. She reports that she usually has a bowel movement every day. She is passing little gas. She denies any history of bowel obstruction. Previous abdominal surgeries includes several hernia repairs. She reports associated nausea but denies fevers, chills, vomiting, and urinary symptoms. [facility] Medical History Depression Anxiety Hypertension Hyperthyroidism Medical History no medical history Home Medications ???Medication ???Instructions ???Recorded ???Last Taken ???Type metformin 1,000 mg 24 hr 1,000 mg PO DAILY 10/08/15 6 History tablet,extended release (gastric reten.) dicyclomine 20 mg tablet 20 mg PO 4X/DAY PRN PRN abdominal 06/05/24 Unknown History pain hydroxyzine HCl 25 mg tablet 25 mg PO 4X/DAY 06/05/24 Unknown H istory levetiracetam 500 mg tablet 500 mg PO BID 06/05/24 Unknown His tory levothyroxine 112 mcg tablet 112 mcg PO DAILY 06/05/24 Unknown History losartan 25 mg tablet 25 mg PO DAILY 06/05/24 Unknown Hi story olanzapine 10 mg tablet 10 mg PO DAILY 06/05/24 Unknown Hi story polyethylene glycol 3350 17 17 g PO DAILY #119 grams 06/05/24 Unknown Rx gram/dose oral powder (Miralax) ramelteon 8 mg tablet 8 mg PO QHS 06/05/24 Unknown Histo ry rosuvastatin 20 mg tablet 20 mg PO QHS 06/05/24 Unknown Hist ory sennosides 8.6 mg capsule (senna) 8.6 mg PO DAILY PRN constipation 06/05/24 Unknown Rx #14 caps sertraline 100 mg tablet 150 mg PO 06/05/24 Unknown History zolpidem 5 mg tablet 5 mg PO QHS PRN PRN insomnia 06/05 Unknown History Allergy/AdvReac Type Severity Reaction Status Date / Time diphenhydramine (From Allergy Anaphylaxis Verified 05/20/24 15:06 Benadryl) morphine Allergy Anaphylaxis Verified 05/20/24 15:06 vancomycin Allergy Anaphylaxis Verified 05/20/24 15:06 Family History no significant family his Surgical History H/O spinal fusion H/O hernia repair Surgical History no surgical history Social History household members: none Smoking Status: Never smoker ROS ROS ED Constitutional Constitutional ED: Denies chills or fever(s) Cardiovascular Cardiovascular: Denies chest pain Respiratory/Chest Respiratory/Chest: Denies dyspnea Gastrointestinal Gastrointestinal: Reports abdominal pain, constipation and nausea; Denies diarrhea or vomiting Genitourinary Genitourinary ED: Denies dysuria, hematuria or urinary urgency Musculoskeletal Musculoskeletal: Denies arthralgias or myalgias Integumentary Denies rash Neurologic Neurologic: Denies weakness EXAM Physical Exam Const Vital Signs: 06/05/24 09:34 06/05/24 11:34 06/05/24 13:00 Temperature 98.1 F Temperature Source Oral Pulse Rate 68 70 63 Respiratory Rate 16 18 18 Blood Pressure 146/72 H 120/75 131/71 H Blood Pressure Mean 96 90 86 Pulse Ox 96 98 95 Oxygen Delivery Method Room Air Positive well nourished, well developed and no apparent distress General Appearance ED: well developed HEENT Reports normocephalic and head/scalp atraumatic Mouth ED: Yes moist mucous membranes normal Eyes PERRL and EOMs intact bilaterally Neck full ROM and supple Chest Wall inspection of chest normal Resp normal respiratory effort and clear to auscultation bilaterally Cardio regular rate and regular rhythm GI soft to palpation, non-distended and no masses GI Narrative: Several abdominal healed incisions. Diffuse tenderness across abdomen is pronounced in the right lower quadrant, no rigidity or guarding. Back/Spine normal ROM and normal to inspection Extremity normal to inspection and full ROM Neuro oriented x3, CN's II-XII intact bilaterally, moves all extremities, no focal motor deficits and no sensory deficits noted Sensorium / Orientation: awake and alert Psych mental status grossly normal and thought process normal Skin no rashes or lesions noted and no wounds Physical Exam Const Vital Signs: (more content not included)... Normal [facility] Eosinophil percentageOrdered By: Naya Bartlett on 06-05-2024 Eosinophils/100 WBC (Bld) 3.3 % 0-5 [facility] Epithelial cells.squamous LM Ql (Urine sed)Ordered By: Naya Bartlett on 06-05-2024 Epithelial cells.squamous LM.HPF (Urine sed) [#/Area] 0 /[HPF] 5-10 [facility] Erythrocyte distribution wid th (RBC) [Ratio]Ordered By: Naya Bartlett on 06-05-2024 Erythrocyte distribution width (RBC) [Entitic vol] 41.6 fL 35.1-43.9 [facility] Erythrocyte distribution wid th ratioOrdered By: Naya Bartlett on 06-05-2024 Erythrocyte distribution width (RBC) [Ratio] 13.0 % 11.6-14.6 [facility] Erythrocyte distribution wid th standard deviationOrdered By: Naya Bartlett on 06-05-2024 Erythrocyte distribution width (RBC) [Ratio] 41.6 fl 35.1-43.9 [facility] Estimation of creatinine artur aranceOrdered By: Naya Bartlett on 06-05-2024 Estimated Creatinine Clearance Calc 102.63 ml/min 50-250 [facility] GFR/1.73 sq M.predicted subha g non-blacks MDRD (S/P/Bld) [Vol rate/Area]Ordered By: Naya Bartlett on 06-05-2024 Estimated GFR (MDRD) Non-Af Amer 105 >60 [facility] Comment on above: mL/min/1.73m2 CKD-EP I Creatinine Equation (2020) Glomerular filtration rate ( GFR) estimation/1.73 sq m using serum, plasma, or whole bOrdered By: Naya Bartlett on 06-05-2024 GFR/1.73 sq M.predicted among non-blacks MDRD (S/P/Bld) [Vol rate/Area] 105 mL/min/{1.73_m2} >60 [facility] Comment on above: mL/min/1.73m2 CKD-EP I Creatinine Equation (2020) Glucose Ql (U)Ordered By: Paola Bartlett on 06-05-2024 Urine Glucose (UA) Normal mg/dl Normal [facility] Hematocrit Auto (Bld) [Volum e fraction]Ordered By: Naya Bartlett on 06-05-2024 Hematocrit (Bld) [Volume fraction] 36.6 % Low 37-47 [facility] Hemoglobin measurementOrdere d By: Naya Bartlett on 06-05-2024 Hemoglobin (Bld) [Mass/Vol] 12.5 g/dL 12.0-15.0 [facility] Immature granulocytes/100 WB C Auto (Bld)Ordered By: Naya Bartlett on 06-05-2024 Immature granulocytes/100 WBC (Bld) 0.300 % 0.0-0.9 [facility] Comment on above: IG% - Immature Granu locytes (promyelocytes, myelocytes and metamyelocytes) > 1% indicates that a LEFT SHIFT is Present. Ketones Test strip Ql (U)Ord ered By: Naya Bartlett on 06-05-2024 Ketones Ql (U) Negative Negative [facility] Laboratory - Chemistry and C hemistry - challengeOrdered By: Naya Bartlett on 06-05-2024 AST [Catalytic activity/Vol] 35 U/L High <32 [facility] Lipaseon 06-05-2024 Lipase [Catalytic activity/Vol] 34 U/L Normal 13-75 [facility] Comment on above: Result Comment: Torrey appiah note: LIPASE revised reference range effective 22. New Lipase methodology. Expected to produce lower values than the previous assay method. NEW Reference Range: 13 - 75 U/L Performed By: #### L 501.2450, L500.4050 #### [facility] [facility] [address] [place] [address], [phone] Lipase measurementOrdered By : Naya Bartlett on 06-05-2024 Lipase [Catalytic activity/Vol] 34 U/L 13-75 [facility] Comment on above: Please note:LIPASE r evised reference range effective 22. New Lipase methodology. Expected to produce lower values than the previous assay method. NEW Reference Range: 13 - 75 U/L Lymphocytes Auto (Unsp spec) [#/Vol]Ordered By: Naya Bartlett on 06-05-2024 Lymphocytes (Bld) [#/Vol] 2.62 10*3/uL 0.83-4.51 [facility] Lymphocytes/100 WBC Auto (Un sp spec)Ordered By: Naya Bartlett on 06-05-2024 Lymphocytes/100 WBC (Bld) 37.8 % 19-41 [facility] MCV (mean corpuscular volume ) determinationOrdered By: Naya Bartlett on 06-05-2024 MCV (RBC) [Entitic vol] 87.4 fL 81-99 [facility] Mean corpuscular hemoglobin (MCH) determinationOrdered By: Naya Bartlett on 06-05-2024 MCH (RBC) [Entitic mass] 29.8 pg 27.0-32.0 [facility] Mean corpuscular hemoglobin concentration (MCHC) determinationOrdered By: Naya Bartlett on 06-05-2024 MCHC (RBC) [Mass/Vol] 34.2 g/dL 32-36 [facility] Mean platelet volume determi nationOrdered By: Naya Bartlett on 06-05-2024 Platelet mean volume (Bld) [Entitic vol] 10.1 fL 6.2-12.0 [facility] Microscopic analysis of urin e for red blood cells (RBC)Ordered By: Naya Bartlett on 06-05-2024 Microscopic analysis of urine for red blood cells (RBC) 0-5 SEEN /hpf 0-5 [facility] Urine RBC 0-5 SEEN /hpf 0-5 [facility] Monocyte percentageOrdered B y: Naya Bartlett on 06-05-2024 Monocytes/100 WBC (Bld) 8.2 % 0-10 [facility] Mucus LM Ql (Urine sed)Order ed By: Naya Bartlett on 06-05-2024 Mucus Ql (Urine sed) 0 SEEN /hpf [facility] Neutrophil percentageOrdered By: Naya Bartlett on 06-05-2024 Neutrophils/100 WBC (Bld) 49.7 % 47-70 [facility] Nitrite Test strip Ql (U)Ord ered By: Naya Bartlett on 06-05-2024 Nitrite Ql (U) Negative Negative [facility] Nucleated red blood cell per centageOrdered By: Naya Bartlett on 06-05-2024 Nucleated RBC/100 WBC (Bld) [Ratio] 0 % 0-5 [facility] Platelet countOrdered By: Paola Bartlett on 06-05-2024 Platelets (Bld) [#/Vol] 260 10*3/uL 150-450 [facility] Potassium (Unsp spec) [Mass/ Vol]Ordered By: Naya Bartlett on 06-05-2024 Potassium [Moles/Vol] 3.3 mmol/L 3.3-5.1 [facility] Potassium measurement (mass/ volume)Ordered By: Naya Bartlett on 06-05-2024 Potassium (Unsp spec) [Mass/Vol] 3.3 mmol/L 3.3-5.1 [facility] Protein Test strip Ql (U)Ord ered By: Naya Bartlett on 06-05-2024 Protein Ql (U) 30 mg/dl High Negative [facility] RBC Auto (Bld) [#/Vol]Ordere d By: Naya Bartlett on 06-05-2024 RBC (Bld) [#/Vol] 4.19 10*6/uL Low 4.2-5.4 [facility] Serum creatinine measurement (mass/volume)Ordered By: Naya Bartlett on 06-05-2024 Creatinine [Mass/Vol] 0.56 mg/dL Low 0.70-1.20 [facility] Serum globulin measurementOr dered By: Naya Bartlett on 06-05-2024 Globulin (S) [Mass/Vol] 2.4 g/dL 2.2-4.2 [facility] Serum glucose measurement (m ass/volume)Ordered By: Naya Bartlett on 06-05-2024 Glucose [Mass/Vol] 102 mg/dL High 70-99 [facility] Serum or plasma alanine minaya otransferase (ALT) measurementOrdered By: Naya Bartlett on 06-05-2024 ALT [Catalytic activity/Vol] 29 U/L <35 [facility] Serum or plasma albumin darinel urement (mass/volume)Ordered By: Naya Bartlett on 06-05-2024 Albumin [Mass/Vol] 4.2 g/dL 3.5-5.0 [facility] Serum or plasma albumin/glob ulin mass ratioOrdered By: Naya Bartlett on 06-05-2024 Albumin/Globulin [Mass ratio] 1.7 {ratio} 0.9-2.4 [facility] Serum or plasma alkaline peyton sphatase measurementOrdered By: Naya Bartlett on 06-05-2024 ALP [Catalytic activity/Vol] 110 U/L High 35-104 [facility] Serum or plasma calcium darinel urement (mass/volume)Ordered By: Naya Bartlett on 06-05-2024 Calcium [Mass/Vol] 8.6 mg/dL 7.6-11.0 [facility] Serum or plasma urea nitroge n measurement (mass/volume)Ordered By: Naya Bartlett on 06-05-2024 Urea nitrogen [Mass/Vol] 14 mg/dL 4-19 [facility] Sodium levelOrdered By: Ricardo Bartlett on 06-05-2024 Sodium [Moles/Vol] 141 mmol/L 133-145 [facility] Squamous epithelial cells de tection in urine sediment by light microscopyOrdered By: Naya Bartlett on 06-05-2024 Epithelial cells.squamous LM Ql (Urine sed) 0-5 SEEN /hpf 5-10 [facility] Total proteinOrdered By: Celio Bartlett on 06-05-2024 Protein [Mass/Vol] 6.6 g/dL 5.9-8.4 [facility] Urinalysis, Completeon 06-05 EPI,SQUAMOUS 0-5 SEEN Normal 5-10 [facility] Comment on above: Order Comment: CLEAN CATCH Performed By: #### L 400.0001 #### [facility] [address] [place], [address] RBC 0-5 SEEN Normal 0-5 [facility] Comment on above: Order Comment: CLEAN CATCH Performed By: #### L 400.0001 #### [facility] [address] [place], [address] WBC 0-5 SEEN Normal 0-5 [facility] Comment on above: Order Comment: CLEAN CATCH Performed By: #### L 400.0001 #### [facility] [address] [place], [address] BACTERIA 0 SEEN Normal None Seen [facility] Comment on above: Order Comment: CLEAN CATCH Performed By: #### L 400.0001 #### [facility] [address] [place], [address] Mucus Ql (Urine sed) 0 SEEN Normal [facility] Comment on above: Order Comment: CLEAN CATCH Performed By: #### L [id number] #### [facility] [address] [place], [place], [id number] Urine blood detectionOrdered By: Naya Bartlett on 06-05-2024 Urine Occult Blood 50 /ul High Negative [facility] Urine clarityOrdered By: Celio Bartlett on 06-05-2024 Clarity (U) Clear Clear [facility] Urine color determinationOrd ered By: Naya Bartlett on 06-05-2024 Color (U) Yellow Yellow [facility] Urine glucose detectionOrder ed By: Naya Bartlett on 06-05-2024 Glucose Ql (U) Normal mg/dl Normal [facility] Urine leukocyte esterase det ection by dipstickOrdered By: Naya Bartlett on 06-05-2024 Leukocyte esterase Test strip Ql (U) 25 /ul High Negative [facility] Urine pHOrdered By: Nishi Bartlett on 06-05-2024 pH (U) 5.0 [pH] 5.0 - 8.0 [facility] Urine sediment bacteria coun t by microscopy (number/high power field)Ordered By: Naya Bartlett on 06-05-2024 Bacteria LM.HPF (Urine sed) [#/Area] 0 /[HPF] None Seen [facility] Urine specific gravity measu rementOrdered By: Naya Bartlett on 06-05-2024 Specific gravity (U) [Rel density] 1.010 1.002-1.030 [facility] Urine urobilinogen measureme ntOrdered By: Naya Bartlett on 06-05-2024 Urobilinogen Ql (U) 1 mg/dl High Normal [facility] Urobilinogen Ql (U)Ordered B y: Naya Bartlett on 06-05-2024 Urobilinogen (U) [Mass/Vol] 1 mg/dL High Normal [facility] White blood cell (WBC) count Ordered By: Naya Bartlett on 06-05-2024 WBC (Bld) [#/Vol] 6.9 10*3/uL 4.4-11.0 [facility] White blood cell countOrdere d By: Naya Bartlett on 06-05-2024 Urine WBC 0-5 SEEN /hpf 0-5 [facility] White blood cell count 0-5 SEEN /hpf 0-5 [facility] B1WBon 06-03-2024 Vitamin B1 Whl Bld 106.2 nmol/L Normal 66.5-200.0 [facility] Comment on above: Result Comment: This test was developed and its performance characteristics determined by [employer]. It has not been cleared or approved by the Food and Drug Administration. Performed At: [address] [id number] Neo Ji MD Ph:[phone] Performed By: #### F T4, TSH, ADIFF, CMP, ANEU, VIDH, LIPID, FERR, [id number], GFR, LIP, A1C, CBC ####[address] [place], [place] [address]#### FOL, B12 ####[place] [address] ZINCon 06-03-2024 Zinc Lvl 79 UG/DL Normal 44-115 [facility] Comment on above: Result Comment: This test was developed and its performance characteristics determined by [employer]. It has not been cleared or approved by the Food and Drug Administration. Detection Limit = 5 Performed At: [address] [id number] Neo Ji MD Ph:[phone] Performed By: #### 0 [id number] #### [place] [address] [place], [place] [address] A1Con 05-31-2024 Glucose [Mass/Vol] 111 mg/dL Normal [facility] Comment on above: Result Comment: Lina mated Average Glucose calculated by equation ((28.7xA1C)-46.7) Estimated average glucose (eAG) is a calculated value from Hemoglobin A1C and is reimbursement representative of the average blood glucose level in the last 2-3 month period. Normal range: less than 114 mg/dL Performed By: #### F T4, TSH, ADIFF, CMP, ANEU, VIDH, LIPID, FERR, [id number], GFR, LIP, A1C, CBC ####[address] [place], [place] [address]#### FOL, B12 ####[place] [id number] [place] [id number] HbA1c (Bld) [Mass fraction] 5.5 % Normal 4.3-6.4 [facility] Comment on above: Performed By: #### F T4, TSH, ADIFF, CMP, ANEU, VIDH, LIPID, FERR, [id number], GFR, LIP, A1C, CBC ####[address] [place], [place] [address]#### FOL, B12 ####[place] [address] [place], [place] [id number] XR ABDOMEN 2 VIEWS W/ DECUB/ ERECTon 05-31-2024 XR ABDOMEN 2 VIEWS W/ DECUB/ERECT ORIGINAL EXAMINATION: TWO XRAY VIEWS OF THE ABDOMEN 05/30/2024 3:11 pm COMPARISON: 11/30/2023 HISTORY: ORDERING SYSTEM PROVIDED HISTORY: Reason for Exam: pain in abdomen, assess stool burden FINDINGS: Nonobstructive bowel gas pattern. Large colonic stool burden, predominantly left-sided. No large renal calculi. No lucency under the diaphragm to suggest free intraperitoneal air. Cholecystectomy clips. Surgical clips and suture material are noted over the regions of the stomach and descending colon. No acute osseous findings. Pelvic phleboliths. The visualized lung bases are clear. IMPRESSION: Nonobstructive bowel gas pattern. Large colonic stool burden. I have personally reviewed the images of this examination, and agree with the resident's findings and interpretation. Interpreted by: Bob Miguel MD Preliminary Report By: Dharmesh Judge Electronically signed By Bob Miguel MD Dictated Date: 05/31/2024 1:33:08 AM Prelim Date: 05/31/2024 1:38:14 AM Sign Date: 05/31/2024 1:43:54 AM Ordering Provider: EMMA Quinn [facility] .Auto Diffon 05-30-2024 Basophil, Absolute 0.0 10 3/mcL Normal 0.0-0.2 [facility] Comment on above: Performed By: #### F T4, TSH, ADIFF, CMP, ANEU, VIDH, LIPID, FERR, [id number], GFR, LIP, A1C, CBC ####[place] [address]#### FOL, B12 ####[address] [address] Basophils/100 WBC (Bld) 0.5 % Normal 0.0-2.5 [facility] Comment on above: Performed By: #### F T4, TSH, ADIFF, CMP, ANEU, VIDH, LIPID, FERR, [id number], GFR, LIP, A1C, CBC ####[place] [address]#### FOL, B12 ####[address] [address] Eosinophil, Absolute 0.2 10 3/mcL Normal 0.0-0.7 [facility] Comment on above: Performed By: #### F T4, TSH, ADIFF, CMP, ANEU, VIDH, LIPID, FERR, [id number], GFR, LIP, A1C, CBC ####[place] [address]#### FOL, B12 ####[address] [address] Eosinophils/100 WBC (Bld) 2.7 % Normal 0.0-7.0 [facility] Comment on above: Performed By: #### F T4, TSH, ADIFF, CMP, ANEU, VIDH, LIPID, FERR, [id number], GFR, LIP, A1C, CBC ####[place] [address]#### FOL, B12 ####[address] [address] Lymphocyte, Absolute 2.4 10 3/mcL Normal 0.9-4.3 [facility] Comment on above: Performed By: #### F T4, TSH, ADIFF, CMP, ANEU, VIDH, LIPID, FERR, [id number], GFR, LIP, A1C, CBC ####[address] [address]#### FOL, B12 ####[address] [address] Lymphocytes/100 WBC (Bld) 34.0 % Normal 20.0-40.0 [facility] Comment on above: Performed By: #### F T4, TSH, ADIFF, CMP, ANEU, VIDH, LIPID, FERR, [id number], GFR, LIP, A1C, CBC ####[place] [address]#### FOL, B12 ####[address] [address] Monocyte, Absolute 0.4 10 3/mcL Normal 0.1-1.4 [facility] Comment on above: Performed By: #### F T4, TSH, ADIFF, CMP, ANEU, VIDH, LIPID, FERR, [id number], GFR, LIP, A1C, CBC ####[place] [address]#### FOL, B12 ####[address] [address] Monocytes/100 WBC (Bld) 6.3 % Normal 2.0-13.0 [facility] Comment on above: Performed By: #### F T4, TSH, ADIFF, CMP, ANEU, VIDH, LIPID, FERR, [id number], GFR, LIP, A1C, CBC ####[address] [address]#### FOL, B12 ####[address] [address] Neutrophils/100 WBC (Bld) 56.5 % Normal 50.0-75.0 [facility] Comment on above: Performed By: #### F T4, TSH, ADIFF, CMP, ANEU, VIDH, LIPID, FERR, [id number], GFR, LIP, A1C, CBC ####[address] [place], [place] [address]#### FOL, B12 ####[address] [address] .GFRon 05-30-2024 Estimated Glomerular Filtration Rate 86 ml/min/1.73sqm Normal [facility] Comment on above: Result Comment: Stages of Chronic Kidney Disease (CKD) Stage Description eGFR(ml/min/1.73 sq.m.) CKD 1 Normal kidney function or >=90 normal kindney function with possible kidney damage (ex. Proteinuria) CKD 2 Kidney damage with mild loss 60-89 of kidney function CKD 3a Mild to moderate loss of kidney 45-59 function CKD 3b Moderate to severe loss of 30-44 of kindey function CKD 4 Severe loss of kidney function 15-29 CKD 5 Kidney failure <15 Note: (go live 2024) the eGFR calculation was updated to the 2020 CKD-EPI creatinine equation without a race factor to calculate the eGFR results. Performed By: #### F T4, TSH, ADIFF, CMP, ANEU, VIDH, LIPID, FERR, [id number], GFR, LIP, A1C, CBC ####[place] [id number]#### FOL, B12 ####[place] [id number] .NEUABSon 05-30-2024 Neutrophil, Absolute 4.0 10 3/mcL Normal 2.3-8.1 [facility] Comment on above: Performed By: #### F T4, TSH, ADIFF, CMP, ANEU, VIDH, LIPID, FERR, [id number], GFR, LIP, A1C, CBC ####[address] [address]#### FOL, B12 ####[address] [address] B12on 05-30-2024 Cobalamin (Vitamin B12) [Mass/Vol] 793 pg/mL Normal 211-911 [facility] Comment on above: Performed By: #### F T4, TSH, ADIFF, CMP, ANEU, VIDH, LIPID, FERR, [id number], GFR, LIP, A1C, CBC ####[place] [address]#### FOL, B12 ####[place] [address] CBCon 05-30-2024 Erythrocyte distribution width (RBC) [Ratio] 13.5 % Normal 11.5-15.5 [facility] Comment on above: Performed By: #### F T4, TSH, ADIFF, CMP, ANEU, VIDH, LIPID, FERR, [id number], GFR, LIP, A1C, CBC ####[place] [address]#### FOL, B12 ####[place] [address] Hematocrit (Bld) [Volume fraction] 40.9 % Normal 34.0-46.0 [facility] Comment on above: Performed By: #### F T4, TSH, ADIFF, CMP, ANEU, VIDH, LIPID, FERR, [id number], GFR, LIP, A1C, CBC ####[place] [address]#### FOL, B12 ####[place] [address] Hgb 13.8 G/dL Normal 12.0-16.0 [facility] Comment on above: Performed By: #### F T4, TSH, ADIFF, CMP, ANEU, VIDH, LIPID, FERR, [id number], GFR, LIP, A1C, CBC ####[place] [address]#### FOL, B12 ####[place] [address] MCH (RBC) [Entitic mass] 29.3 pg Normal 27.0-33.0 [facility] Comment on above: Performed By: #### F T4, TSH, ADIFF, CMP, ANEU, VIDH, LIPID, FERR, [id number], GFR, LIP, A1C, CBC ####[place] [address]#### FOL, B12 ####[place] [address] MCHC 33.7 G/dL Normal 32.0-36.0 [facility] Comment on above: Performed By: #### F T4, TSH, ADIFF, CMP, ANEU, VIDH, LIPID, FERR, [id number], GFR, LIP, A1C, CBC ####[place] [address]#### FOL, B12 ####[place] [address] MCV (RBC) [Entitic vol] 87.1 fL Normal 80.0-99.0 A [facility] Comment on above: Performed By: #### F T4, TSH, ADIFF, CMP, ANEU, VIDH, LIPID, FERR, [id number], GFR, LIP, A1C, CBC ####[place] [address]#### FOL, B12 ####[place] [address] Platelet 276 10 3/mcL Normal 150-450 [facility] Comment on above: Performed By: #### F T4, TSH, ADIFF, CMP, ANEU, VIDH, LIPID, FERR, [id number], GFR, LIP, A1C, CBC ####[place] [address]#### FOL, B12 ####[place] [address] Platelet mean volume (Bld) [Entitic vol] 8.9 fL Normal 6.6-10.5 [facility] Comment on above: Performed By: #### F T4, TSH, ADIFF, CMP, ANEU, VIDH, LIPID, FERR, [id number], GFR, LIP, A1C, CBC ####[place] [address]#### FOL, B12 ####[place] [address] RBC 4.70 10 6/mcL Normal 4.10-5.30 [facility] Comment on above: Performed By: #### F T4, TSH, ADIFF, CMP, ANEU, VIDH, LIPID, FERR, [id number], GFR, LIP, A1C, CBC ####[place] [address]#### FOL, B12 ####[address] [address] WBC 7.2 10 3/mcL Normal 4.5-10.8 [facility] Comment on above: Performed By: #### F T4, TSH, ADIFF, CMP, ANEU, VIDH, LIPID, FERR, [id number], GFR, LIP, A1C, CBC ####[place] [address]#### FOL, B12 ####[place] [address] CMPon 05-30-2024 Albumin Level 4.1 G/dL Normal 3.5-5.0 [facility] Comment on above: Performed By: #### F T4, TSH, ADIFF, CMP, ANEU, VIDH, LIPID, FERR, [id number], GFR, LIP, A1C, CBC ####[place] [address]#### RORY, B12 ####[place] [address] Albumin/Globulin [Mass ratio] 1.2 {ratio} Normal 1.1-2.5 [facility] Comment on above: Performed By: #### F T4, TSH, ADIFF, CMP, ANEU, VIDH, LIPID, FERR, [id number], GFR, LIP, A1C, CBC ####[place] [address]#### FOL, B12 ####[address] [address] ALP [Catalytic activity/Vol] 134 U/L Normal 40-135 [facility] Comment on above: Performed By: #### F T4, TSH, ADIFF, CMP, ANEU, VIDH, LIPID, FERR, [id number], GFR, LIP, A1C, CBC ####[place] [address]#### FOL, B12 ####[place] [address] ALT [Catalytic activity/Vol] 45 U/L Normal 14-59 [facility] Comment on above: Performed By: #### F T4, TSH, ADIFF, CMP, ANEU, VIDH, LIPID, FERR, [id number], GFR, LIP, A1C, CBC ####[place] [address]#### FOL, B12 ####[place] [address] AST [Catalytic activity/Vol] 38 U/L Normal 10-40 [facility] Comment on above: Performed By: #### F T4, TSH, ADIFF, CMP, ANEU, VIDH, LIPID, FERR, [id number], GFR, LIP, A1C, CBC ####[place] [address]#### FOL, B12 ####[place] [address] Bili Total 0.4 mg/dL Normal 0.2-1.0 [facility] Comment on above: Result Comment: Use of this assay is not recommended for patients undergoing treatment with eltrombopag due to the potential for falsely elevated results. Performed By: #### F T4, TSH, ADIFF, CMP, ANEU, VIDH, LIPID, FERR, [id number], GFR, LIP, A1C, CBC ####[place] [address]#### FOL, B12 ####[place] [address] BUN/Creatinine Ratio 15 ratio Normal 7-27 [facility] Comment on above: Performed By: #### F T4, TSH, ADIFF, CMP, ANEU, VIDH, LIPID, FERR, [id number], GFR, LIP, A1C, CBC ####[place] [address]#### FOL, B12 ####[place] [address] Calcium [Mass/Vol] 9.3 mg/dL Normal 8.4-10.2 [facility] Comment on above: Performed By: #### F T4, TSH, ADIFF, CMP, ANEU, VIDH, LIPID, FERR, [id number], GFR, LIP, A1C, CBC ####[place] [address]#### FOL, B12 ####[address] [address] Chloride [Moles/Vol] 105 mmol/L Normal 98-107 [facility] Comment on above: Performed By: #### F T4, TSH, ADIFF, CMP, ANEU, VIDH, LIPID, FERR, [id number], GFR, LIP, A1C, CBC ####[place] [address]#### FOL, B12 ####[address] [address] CO2 [Moles/Vol] 24 mmol/L Normal 22-29 [facility] Comment on above: Performed By: #### F T4, TSH, ADIFF, CMP, ANEU, VIDH, LIPID, FERR, [id number], GFR, LIP, A1C, CBC ####[place] [address]#### FOL, B12 ####[address] [address] Creatinine [Mass/Vol] 0.79 mg/dL Normal 0.55-1.02 [facility] Comment on above: Result Comment: Test ing performed on Siemens Dimension EXL analyzer using a modified kinetic Catia technique. Performed By: #### F T4, TSH, ADIFF, CMP, ANEU, VIDH, LIPID, FERR, [id number], GFR, LIP, A1C, CBC ####[place] [address]#### FOL, B12 ####[place] [address] Electrolyte Balance 14.0 mEq/L Normal 4.0-15.0 [facility] Comment on above: Performed By: #### F T4, TSH, ADIFF, CMP, ANEU, VIDH, LIPID, FERR, [id number], GFR, LIP, A1C, CBC ####[address] [address]#### FOL, B12 ####[address] [address] Globulin 3.3 G/dL Normal 1.5-3.8 [facility] Comment on above: Performed By: #### F T4, TSH, ADIFF, CMP, ANEU, VIDH, LIPID, FERR, [id number], GFR, LIP, A1C, CBC ####[place] [address]#### FOL, B12 ####[address] [address] Glucose [Mass/Vol] 138 mg/dL High 70-105 [facility] Comment on above: Performed By: #### F T4, TSH, ADIFF, CMP, ANEU, VIDH, LIPID, FERR, [id number], GFR, LIP, A1C, CBC ####[place] [address]#### FOL, B12 ####[place] [address] Potassium [Moles/Vol] 3.7 mmol/L Normal 3.5-5.1 [facility] Comment on above: Performed By: #### F T4, TSH, ADIFF, CMP, ANEU, VIDH, LIPID, FERR, [id number], GFR, LIP, A1C, CBC ####[place] [address]#### FOL, B12 ####[place] [address] Sodium [Moles/Vol] 143 mmol/L Normal 136-145 [facility] Comment on above: Performed By: #### F T4, TSH, ADIFF, CMP, ANEU, VIDH, LIPID, FERR, [id number], GFR, LIP, A1C, CBC ####[place] [address]#### FOL, B12 ####[address] [address] Total Protein 7.4 G/dL Normal 6.4-8.2 [facility] Comment on above: Performed By: #### F T4, TSH, ADIFF, CMP, ANEU, VIDH, LIPID, FERR, [id number], GFR, LIP, A1C, CBC ####[place] [address]#### FOL, B12 ####[place] [address] Urea nitrogen [Mass/Vol] 12 mg/dL Normal 7-18 [facility] Comment on above: Performed By: #### F T4, TSH, ADIFF, CMP, ANEU, VIDH, LIPID, FERR, [id number], GFR, LIP, A1C, CBC ####[place] [address]#### FOL, B12 ####[place] [address] [place] 05-30-2024 Ferritin [Mass/Vol] 25.0 ng/mL Normal 8.0-252.0 [facility] Comment on above: Performed By: #### F T4, TSH, ADIFF, CMP, ANEU, VIDH, LIPID, FERR, [id number], GFR, LIP, A1C, CBC ####[place] [address]#### FOL, B12 ####[place] [address] FOLon 05-30-2024 Folate 18.19 ng/mL Normal 5.38-24.00 [facility] Comment on above: Performed By: #### F T4, TSH, ADIFF, CMP, ANEU, VIDH, LIPID, FERR, [id number], GFR, LIP, A1C, CBC ####[place] [address]#### FOL, B12 ####[place] [address] FT4on 05-30-2024 Free T4 [Mass/Vol] 0.94 ng/dL Normal 0.76-1.46 [facility] Comment on above: Performed By: #### F T4, TSH, ADIFF, CMP, ANEU, VIDH, LIPID, FERR, [id number], GFR, LIP, A1C, CBC ####[place] [address]#### FOL, B12 ####[address] [address] [place] 05-30-2024 Lipase Level 26 U/L Normal 16-77 [facility] Comment on above: Performed By: #### F T4, TSH, ADIFF, CMP, ANEU, VIDH, LIPID, FERR, [id number], GFR, LIP, A1C, CBC ####[place] [address]#### FOL, B12 ####[address] [address] [place] 05-30-2024 Cholesterol [Mass/Vol] 112 mg/dL Normal 0-200 [facility] Comment on above: Result Comment: Chol esterol Reference Interval: Less than 200 Desirable 200-239 Borderline high risk 240 and above High risk Performed By: #### F T4, TSH, ADIFF, CMP, ANEU, VIDH, LIPID, FERR, [id number], GFR, LIP, A1C, CBC ####[place] [address]#### FOL, B12 ####[address] [address] Cholesterol in HDL [Mass/Vol] 61 mg/dL High 40-60 [facility] Comment on above: Performed By: #### F T4, TSH, ADIFF, CMP, ANEU, VIDH, LIPID, FERR, [id number], GFR, LIP, A1C, CBC ####[place] [address]#### FOL, B12 ####[address] [address] Cholesterol in LDL [Mass/Vol] 21 mg/dL Normal 0-130 [facility] Comment on above: Performed By: #### F T4, TSH, ADIFF, CMP, ANEU, VIDH, LIPID, FERR, [id number], GFR, LIP, A1C, CBC ####[place] [address]#### FOL, B12 ####[place] [address] Triglyceride [Mass/Vol] 148 mg/dL Normal 0-150 [facility] Comment on above: Result Comment: Trig lyceride Reference Interval: Less than 150 Normal 150-199 Borderline high risk 200-499 High risk 500 or higher Very high risk Performed By: #### F T4, TSH, ADIFF, CMP, ANEU, VIDH, LIPID, FERR, [id number], GFR, LIP, A1C, CBC ####[place] [address]#### FOL, B12 ####[place] [address] TSHon 05-30-2024 TSH Qn 2.11 m[IU]/L Normal 0.36-3.74 [facility] Comment on above: Performed By: #### F T4, TSH, ADIFF, CMP, ANEU, VIDH, LIPID, FERR, [id number], GFR, LIP, A1C, CBC ####[place] [address]#### FOL, B12 ####[place] [address] VIDHon 05-30-2024 Vit. D 25-Hydroxy 29.5 ng/mL Normal [facility] Comment on above: Result Comment: Inte rpretive Values Based on Total 25(OH) Vitamin D: Deficient <20 ng/mL Insufficient 20 - <30 ng/mL Sufficient 30-100 ng/mL Performed By: #### F T4, TSH, ADIFF, CMP, ANEU, VIDH, LIPID, FERR, [id number], GFR, LIP, A1C, CBC ####[place] [address]#### FOL, B12 ####[place] [address] Absolute lymphocyte countOrd ered By: Kvng Pelaez on 05-20-2024 Lymphocytes Auto (Unsp spec) [#/Vol] 2.15 10*3/uL 0.83-4.51 [facility] Absolute neutrophil countOrd ered By: Kvng Pelaez on 05-20-2024 Neutrophils (Bld) [#/Vol] 3.4 10*3/uL 2.0-7.7 [facility] Acute Abdomen Inc Cheston Acute Abdomen Inc Chest [facility] Imaging Services [address] [place] [address] Acute Abdomen Inc Chest MR#: [id number] Acct: [id number] Name: AYALA ARANDA Rep #: [id number] : 1965 F 59 From: Maru Sullivan DO PCP: Dr. Emma Harmon DO Status: REG ER Study: Acute Abdomen Inc Chest Date of Exam: 05/20/24 Exam# [id number] Ordering Dr: Kvng Pelaez MD PROCEDURE: ACUTE ABDOMEN INC CHEST 05/20/2024 REASON FOR EXAM: RIGHT LOWER QUADRANT PAIN DUE TO INCISIONAL HERNIA TECHNIQUE: Single AP view of the chest with supine and upright views of the abdomen. COMPARISON: None FINDINGS: No focal consolidation. No pneumothorax. Heart size is normal. Lower cervical spine fusion hardware. Nonobstructive bowel gas pattern. No evidence of free air. Status post cholecystectomy. Degenerative changes of the lumbar spine. The bilateral sacroiliac joints are grossly unremarkable. RAD/Acute Abdomen Inc Chest IMPRESSION: NO ACUTE FINDINGS Reading Location: [facility] CC: Dr. Emma Harmon DO; Dr. 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 Normal [facility] Anion gap in Serum or Plasma Ordered By: Kvng Pelaez on 05-20-2024 Anion gap [Moles/Vol] 12 mmol/L 5-15 [facility] Automated lymphocyte count a s percentage of total leukocytesOrdered By: Kvng Pelaez on 05-20-2024 Lymphocytes/100 WBC Auto (Unsp spec) 35.2 % - [facility] BUN/creatinine ratioOrdered By: Kvng Pelaez on 05-20-2024 Urea nitrogen/Creatinine [Mass ratio] 17.3 mg/mg - [facility] Basic Metabolic Profile (BMP )on 05-20-2024 BUN/CRE 17.3 RATIO Normal 12-19 [facility] Comment on above: Performed By: #### L 500.2500, L100.0100 #### [facility] Laboratory [address] [place], [address] Calcium [Mass/Vol] 8.7 mg/dL Normal 7.6-11.0 [facility] Comment on above: Performed By: #### L 500.2500, L100.0100 #### [facility] Laboratory [address] [place], [address] Chloride [Moles/Vol] 107 mmol/L Normal 98-108 [facility] Comment on above: Performed By: #### L 500.2500, L100.0100 #### [facility] [address] [place], [address] CO2 [Moles/Vol] 20.5 mmol/L Low 21.0-32.0 [facility] Comment on above: Performed By: #### L 500.2500, L100.0100 #### [facility] [address] [place], [address] Creatinine [Mass/Vol] 0.56 mg/dL Low 0.70-1.20 [facility] Comment on above: Performed By: #### L 500.2500, L100.0100 #### [facility] [address] [place], [address] ECRCL 105.77 ml/min Normal 50-250 [facility] Comment on above: Performed By: #### L 500.2500, L100.0100 #### [facility] [address] [place], [address] GAP 12 Normal 5-15 [facility] Comment on above: Performed By: #### L 500.2500, L100.0100 #### [facility] [address] [place], [address] GFR/1.73 sq M.predicted among non-blacks MDRD (S/P/Bld) [Vol rate/Area] 105 mL/min/{1.73_m2} Normal >60 [facility] Comment on above: Result Comment: mL/m in/1.73m2 CKD-EPI Creatinine Equation (2020) Performed By: #### L 500.2500, L100.0100 #### [facility] [address] [place], [address] Glucose [Mass/Vol] 93 mg/dL Normal 70-99 [facility] Comment on above: Performed By: #### L 500.2500, L100.0100 #### [facility] [address] [place], [address] Potassium [Moles/Vol] 4.1 mmol/L Normal 3.3-5.1 [facility] Comment on above: Result Comment: Hemo lysis present, Results??could be affected. ?? Performed By: #### L 500.2500, L100.0100 #### [facility] [address] [place], [address] Sodium [Moles/Vol] 139 mmol/L Normal 133-145 [facility] Comment on above: Performed By: #### L 500.2500, L100.0100 #### [facility] [address] [place], [address] Urea nitrogen [Mass/Vol] 10 mg/dL Normal 4-19 [facility] Comment on above: Performed By: #### L 500.2500, L100.0100 #### [facility] [address] [place], [address] Basophil percentageOrdered B y: Kvng Pelaez on 05-20-2024 Basophils/100 WBC (Bld) 0.8 % 0-1 [facility] CBC W/Diff, Automatedon 03-2 Absolute Lymph 2.15 X10 3/uL Normal 0.83-4.51 [facility] Comment on above: Performed By: #### L 500.2500, L100.0100 #### [facility] [address] [place], [address] Absolute Neut 3.4 X10 3/uL Normal 2.0-7.7 [facility] Comment on above: Performed By: #### L 500.2500, L100.0100 #### [facility] [address] [place], [address] Basophils/100 WBC (Bld) 0.8 % Normal 0-1 [facility] Comment on above: Performed By: #### L 500.2500, L100.0100 #### [facility] [address] [place], [address] Eosinophils/100 WBC (Bld) 2.8 % Normal 0-5 [facility] Comment on above: Performed By: #### L 500.2500, L100.0100 #### [facility] [address] [place], [address] Erythrocyte distribution width (RBC) [Ratio] 12.9 % Normal 11.6-14.6 [facility] Comment on above: Performed By: #### L 500.2500, L100.0100 #### [facility] [address] [place], [address] Hematocrit (Bld) [Volume fraction] 37.6 % Normal 37-47 [facility] Comment on above: Performed By: #### L 500.2500, L100.0100 #### [facility] [address] [place], [address] Hemoglobin (Bld) [Mass/Vol] 12.8 g/dL Normal 12.0-15.0 [facility] Comment on above: Performed By: #### L 500.2500, L100.0100 #### [facility] [address] [place], [address] IG% 0.200 Normal 0.0-0.9 [facility] Comment on above: Result Comment: IG% - Immature Granulocytes (promyelocytes, myelocytes and metamyelocytes) > 1% indicates that a LEFT SHIFT is Present. Performed By: #### L 500.2500, L100.0100 #### [facility] [address] [place], [address] Lymphocytes/100 WBC (Bld) 35.2 % Normal 19-41 [facility] Comment on above: Performed By: #### L 500.2500, L100.0100 #### [facility] [address] [place], [address] MCH (RBC) [Entitic mass] 29.4 pg Normal 27.0-32.0 [facility] Comment on above: Performed By: #### L 500.2500, L100.0100 #### [facility] [address] [place], [address] MCHC (RBC) [Mass/Vol] 34.0 g/dL Normal 32-36 [facility] Comment on above: Performed By: #### L 500.2500, L100.0100 #### [facility] [address] [place], [address] MCV (RBC) [Entitic vol] 86.4 fL Normal 81-99 [facility] Comment on above: Performed By: #### L 500.2500, L100.0100 #### [facility] [address] [place], [address] Monocytes/100 WBC (Bld) 6.1 % Normal 0-10 [facility] Comment on above: Performed By: #### L 500.2500, L100.0100 #### [facility] [address] [place], [address] Neutrophils/100 WBC (Bld) 54.9 % Normal 47-70 [facility] Comment on above: Performed By: #### L 500.2500, L100.0100 #### [facility] [address] [place], [address] Nucleated RBC (Bld) [#/Vol] 0 10*3/uL Normal 0-5 [facility] Comment on above: Performed By: #### L 500.2500, L100.0100 #### [facility] [address] [place], [address] Platelet mean volume (Bld) [Entitic vol] 10.5 fL Normal 6.2-12.0 [facility] Comment on above: Performed By: #### L 500.2500, L100.0100 #### [facility] [address] [place], [address] Platelets (Bld) [#/Vol] 295 10*3/uL Normal 150-450 [facility] Comment on above: Performed By: #### L 500.2500, L100.0100 #### [facility] [address] [place], [address] RBC (Bld) [#/Vol] 4.35 10*6/uL Normal 4.2-5.4 [facility] Comment on above: Performed By: #### L 500.2500, L100.0100 #### [facility] [address] [place], [address] RDW SD 40.4 fl Normal 35.1-43.9 [facility] Comment on above: Performed By: #### L 500.2500, L100.0100 #### [facility] [address] [place], [address] WBC (Bld) [#/Vol] 6.1 10*3/uL Normal 4.4-11.0 [facility] Comment on above: Performed By: #### L 500.2500, L100.0100 #### [facility] [address] [place], [address] Carbon dioxide, total [Moles /volume] in Central venous bloodOrdered By: Kvng Pelaez on 05-20-2024 CO2 [Moles/Vol] 20.5 mmol/L Low 21.0-32.0 [facility] Chloride assayOrdered By: Prema Pelaez on 05-20-2024 Chloride [Moles/Vol] 107 mmol/L 98-108 [facility] Emergency Department Summary on 05-20-2024 Emergency Department Summary [facility] Medical Records Department [address] [place] [address] Emergency Department Summary 05/20/24 MR#: [id number] Acct: [id number] Name: AYALA ARANDA Rep #: [id number] : 1965 59 From: Kvng Pelaez MD PCP: Dr. Emma Harmon, DO Status:REG ER Location: ED HPI History of Present Illness Chief Complaint: Nausea/Vomiting Detail of Chief Complaint: Abdominal pain lateral aspect of lower horizontal incision with bulging N Informant: patient Onset/Context/Timing Onset: Weeks (If not months) Context: - (Intermittent nausea and vomiting, bulging for some time and intermittent pain) Timing: - (Previously documented) Quality: Severe pain Location: Lateral aspect of horizontal incision for gastric bariatric surgery Current Severity: Mild Maximum Severity: Severe Worsened by: Anytime when she eats. Also when she has nausea and vomiting Relieved by: Nothing Associated Symptoms Associated Symptoms: No constipation. Patient is still flagellated. Narrative Narrative: Patient is a 59-year-old female. She has history of type 2 diabetes, she is on metformin. She has had multiple abdominal surgeries. She has had repair for multiple hernias. She reports vomiting twice yesterday and twice today. She denies coffee-ground emesis or hematemesis. Her last normal bowel movement was yesterday. She is still flagellated. She has had this bulge for some time. Her doctors is even aware of it. She denies black or maroon-colored stool. She denies dysuria, frequency, urgency or hematuria. She denies blurred vision. She denies thirst or dry mouth. Denies orthostatic symptoms. As I was walking out of the room after my H P she informed me again that the pain is severe. Prior similar symptoms: Yes Recent Illness/Hospitalization : No PFSH PFSH Home Medications ???Medication ???Instructions ???Recorded ???Last Taken ???Type metformin 1,000 mg 24 hr 1,000 mg PO DAILY 10/08/15 6 History tablet,extended release (gastric reten.) Allergy/AdvReac Type Severity Reaction Status Date / Time diphenhydramine (From Allergy Anaphylaxis Verified 05/20/24 15:06 Benadryl) morphine Allergy Anaphylaxis Verified 05/20/24 15:06 vancomycin Allergy Anaphylaxis Verified 05/20/24 15:06 Social History (Updated 05/20/24 @ 15:[address] Kvng Pelaez MD) household members: none Smoking Status: Never smoker ROS ROS ED Constitutional Constitutional ED: Denies chills, fever(s), subjective, sweats or weight loss Eyes Eyes: Denies blurry vision or change in vision Cardiovascular Cardiovascular: Denies chest pain or palpitations Respiratory/Chest Respiratory/Chest: Denies cough, dyspnea or dyspnea on exertion Gastrointestinal Gastrointestinal: Reports abdominal pain, nausea and vomiting; Denies constipation, diarrhea or melena Genitourinary Genitourinary ED: Denies dysuria, hematuria or urinary frequency Musculoskeletal Musculoskeletal: Denies arthralgias, back pain or myalgias Integumentary Denies rash Hematologic/Lymphatic Hematologic/Lymphatic: Reports systems reviewed and no addt'l complaints, except as documented EXAM Physical Exam Const Vital Signs: 05/20/24 15:07 05/20/24 17:06 Temperature 96.1 F L Temperature Source Temporal Pulse Rate 53 L 62 Respiratory Rate 14 16 Blood Pressure 133/70 H 136/74 H Blood Pressure Mean 91 94 Pulse Ox 98 99 Oxygen Delivery Method Room Air Positive well nourished and well developed Constitutional Narrative: BMI 32.1. General Appearance ED: well developed and pallor; Negative for cyanotic, diaphoretic or NAD HEENT Reports dry mucous membranes Mouth ED: Yes dry mucous membranes Mouth: dry mucous membranes Eyes PERRL and EOMs intact bilaterally General Eye ED: Negative for pale conjunctiva or scleral icterus Neck no lymphadenopathy, supple and no JVD Resp normal respiratory effort and clear to auscultation bilaterally Cardio regular rate, regular rhythm, S1 normal heart sound, S2 normal heart sound and no murmurs GI GI Narrative: Patient has multiple well-healed scars. When patient Valsalvas on demand there is a bulge noted lateral horizontal inferior incision. There is a small defect. The hernia is reducible. There is no inflammation in the proximity of this bulge. There is no induration, erythema or warmth. There is no discoloration to suggest cyanosis. Auscultation: hypoactive bowel sounds Palpation: soft and tender other (Lateral inferior horizontal incision with small ventral hernia noted.) Back/Spine no CVA tenderness Extremity normal to inspection Neuro oriented x3 and CN's II-XII intact bilaterally Sensorium / Orientation: alert Psych mental status grossly normal Skin no rashes or lesions noted, no wounds and skin turgor normal General (more content not included)... Normal [facility] Eosinophil percentageOrdered By: Kvng Pelaez on 05-20-2024 Eosinophils/100 WBC (Bld) 2.8 % 0-5 [facility] Erythrocyte distribution wid th ratioOrdered By: Kvngrené Pelaez on 05-20-2024 Erythrocyte distribution width (RBC) [Ratio] 12.9 % 11.6-14.6 [facility] Erythrocyte distribution wid th standard deviationOrdered By: Kvngrené Pelaez on 05-20-2024 Erythrocyte distribution width (RBC) [Entitic vol] 40.4 fL 35.1-43.9 [facility] Erythrocyte distribution width (RBC) [Ratio] 40.4 fl 35.1-43.9 [facility] Estimation of creatinine artur aranceOrdered By: Kvng Pelaez on 05-20-2024 Estimated Creatinine Clearance Calc 105.77 ml/min 50-250 [facility] GFR/1.73 sq M.predicted subha g non-blacks MDRD (S/P/Bld) [Vol rate/Area]Ordered By: Kvng Pelaez on 05-20-2024 Estimated GFR (MDRD) Non-Af Amer 105 >60 [facility] Comment on above: mL/min/1.73m2 CKD-EP I Creatinine Equation (2020) Glomerular filtration rate ( GFR) estimation/1.73 sq m using serum, plasma, or whole bOrdered By: Kvng Pelaez on 05-20-2024 GFR/1.73 sq M.predicted among non-blacks MDRD (S/P/Bld) [Vol rate/Area] 105 mL/min/{1.73_m2} >60 [facility] Comment on above: mL/min/1.73m2 CKD-EP I Creatinine Equation (2020) Hematocrit Auto (Bld) [Volum e fraction]Ordered By: Kvng Pelaez on 05-20-2024 Hematocrit (Bld) [Volume fraction] 37.6 % 37-47 [facility] Hemoglobin measurementOrdere d By: Kvng Pelaez on 05-20-2024 Hemoglobin (Bld) [Mass/Vol] 12.8 g/dL 12.0-15.0 [facility] Immature granulocytes/100 WB C Auto (Bld)Ordered By: Kvngrneé Pelaez on 05-20-2024 Immature granulocytes/100 WBC (Bld) 0.200 % 0.0-0.9 [facility] Comment on above: IG% - Immature Granu locytes (promyelocytes, myelocytes and metamyelocytes) > 1% indicates that a LEFT SHIFT is Present. Lymphocytes Auto (Unsp spec) [#/Vol]Ordered By: Kvngrené Pelaez on 05-20-2024 Lymphocytes (Bld) [#/Vol] 2.15 10*3/uL 0.83-4.51 [facility] Lymphocytes/100 WBC Auto (Un sp spec)Ordered By: Kvng Pelaez on 05-20-2024 Lymphocytes/100 WBC (Bld) 35.2 % 19-41 [facility] MCV (mean corpuscular volume ) determinationOrdered By: Kvng Pelaez on 05-20-2024 MCV (RBC) [Entitic vol] 86.4 fL 81-99 [facility] Mean corpuscular hemoglobin (MCH) determinationOrdered By: Kvng Pelaez on 05-20-2024 MCH (RBC) [Entitic mass] 29.4 pg 27.0-32.0 [facility] Mean corpuscular hemoglobin concentration (MCHC) determinationOrdered By: Kvngrené Pelaez on 05-20-2024 MCHC (RBC) [Mass/Vol] 34.0 g/dL 32-36 [facility] Mean platelet volume determi nationOrdered By: Kvng Pelaez on 05-20-2024 Platelet mean volume (Bld) [Entitic vol] 10.5 fL 6.2-12.0 [facility] Monocyte percentageOrdered B y: Kvngrené Mayero on 05-20-2024 Monocytes/100 WBC (Bld) 6.1 % 0-10 [facility] Neutrophil percentageOrdered By: Kvngrené Pelaez on 05-20-2024 Neutrophils/100 WBC (Bld) 54.9 % 47-70 [facility] Nucleated red blood cell per centageOrdered By: Kvngrené Pelaez on 05-20-2024 Nucleated RBC/100 WBC (Bld) [Ratio] 0 % 0-5 [facility] Platelet countOrdered By: [facility] Pelaez on 05-20-2024 Platelets (Bld) [#/Vol] 295 10*3/uL 150-450 [facility] Potassium (Unsp spec) [Mass/ Vol]Ordered By: Kvngrené Pelaez on 05-20-2024 Potassium [Moles/Vol] 4.1 mmol/L 3.3-5.1 [facility] Comment on above: Hemolysis present, R esults could be affected. Potassium measurement (mass/ volume)Ordered By: Kvngrené Pelaez on 05-20-2024 Potassium (Unsp spec) [Mass/Vol] 4.1 mmol/L 3.3-5.1 [facility] Comment on above: Hemolysis present, R esults could be affected. RBC Auto (Bld) [#/Vol]Ordere d By: Kvngrené Pelaez on 05-20-2024 RBC (Bld) [#/Vol] 4.35 10*6/uL 4.2-5.4 [facility] Serum creatinine measurement (mass/volume)Ordered By: Kvng Pelaez on 05-20-2024 Creatinine [Mass/Vol] 0.56 mg/dL Low 0.70-1.20 [facility] Serum glucose measurement (m ass/volume)Ordered By: Kvngrené Pelaez on 05-20-2024 Glucose [Mass/Vol] 93 mg/dL 70-99 [facility] Serum or plasma calcium darinel urement (mass/volume)Ordered By: Kvngrené Pelaez on 05-20-2024 Calcium [Mass/Vol] 8.7 mg/dL 7.6-11.0 [facility] Serum or plasma urea nitroge n measurement (mass/volume)Ordered By: Kvng Pelaez on 05-20-2024 Urea nitrogen [Mass/Vol] 10 mg/dL 4-19 [facility] Sodium levelOrdered By: Kvng Pelaez on 05-20-2024 Sodium [Moles/Vol] 139 mmol/L 133-145 [facility] White blood cell (WBC) count Ordered By: Kvng Pelaez on 05-20-2024 WBC (Bld) [#/Vol] 6.1 10*3/uL 4.4-11.0 [facility] CT ANGIOGRAPHY CHEST W/CONTR Negar 03-25-2024 CT ANGIOGRAPHY CHEST W/CONTRAST ORIGINAL EXAMINATION: CTA OF THE CHEST 03/23/2024 10:29 am TECHNIQUE: CTA of the chest was performed after the administration of intravenous contrast. Multiplanar reformatted images are provided for review. MIP images are provided for review. Automated exposure control, iterative reconstruction, and/or weight based adjustment of the mA/kV was utilized to reduce the radiation dose to as low as reasonably achievable. COMPARISON: Prior CT chest dated 03/13/2022. HISTORY: ORDERING SYSTEM PROVIDED HISTORY: Reason for Exam: ascedning thoracic aorta dilation follow up FINDINGS: Pulmonary arteries are adequately opacified for evaluation. No evidence of intraluminal filling defect to suggest pulmonary embolism. The main pulmonary artery is dilated measuring 3.4 cm indicative of pulmonary arterial hypertension. Evaluation of the aorta demonstrates no evidence of thoracic aortic aneurysm or dissection. The ascending thoracic aorta is borderline measuring 3.8 x 3.8 cm on reformatted measurement (previously measured to be 4.0 cm likely stable.) Sinotubular junction measures 3.1 by 3.0 cm stable. The annulus measures 2.5 x 2.8 cm stable. No evidence of mediastinal lymphadenopathy. Mild coronary artery calcifications are noted. The heart and pericardium demonstrate no acute abnormality. There is no acute abnormality of the thoracic aorta. Limited views of the lungs are clear. No visualized consolidation. No visualized pleural effusion or pneumothorax. Limited images of the upper abdomen demonstrate a small hiatal hernia. Previously described pancreatic cyst is not seen within field of view. Postsurgical changes are seen at the GE junction.. No acute bone or soft tissue abnormality. IMPRESSION: Borderline normal versus dilated ascending thoracic aorta measuring 3.8 x 3.8 cm on my measurements. Overall stable compared to prior exam. Dilated main pulmonary artery indicative of pulmonary arterial hypertension. Mild coronary artery calcifications. Small hiatal hernia. Interpreted by: Александр Skinner MD Preliminary Report By: Александр Skinner MD Electronically signed By Александр Skinner MD Dictated Date: 03/25/2024 8:26:53 AM Prelim Date: 03/25/2024 8:46:45 AM Sign Date: 03/25/2024 8:46:45 AM Ordering Provider: EMMA Quinn [facility] Final Surgical Pathology Rep manuel 01-21-2024 Final Surgical Pathology Report . Pathology Reports Accession: Collected Date/Time: Received Date/Time: Pathologist: [id number] 01/20/2024 09:35 EST 01/20/2024 13:53 EST MD ANA ADAMS Final Surgical Pathology Report DIAGNOSIS: CECUM, BIOPSY: - SLIGHTLY POLYPOID FRAGMENTS OF COLONIC MUCOSA WITH NO SPECIFIC PATHOLOGIC CHANGES CLINICAL INFORMATION: ENCOUNTER FOR SCREENING FOR DISEASES OF THE BLOOD AND BLOOD-FORMING ORGANS AND CERTAIN DISORDERS INVOLVING THE IMMUNE MECHANISM Procedure: COLONOSCOPY WITH POLYPECTOMY Preoperative diagnosis: SCREENING Postoperative diagnosis: SCREENING SPECIMEN: A CECAL POLYP GROSS DESCRIPTION: All parts labelled with patient name and [id number] Received in formalin labeled cecal polyp are 2 bell-brown tissue fragments measuring 0.3 x 0.1 and 0.4 x 0.1 cm. TS-1 Stephanie Mcdonald, Grossing Farm Operator/ Dr. Vinicio Rojas, Pathologist Performed by Stephanie Mcdonald MICROSCOPIC DESCRIPTION: The microscopic examination is performed, except in the case of Gross Only. Electronically Signed by Pathology Report verified by [facility] ANA ADAMS MD Sign out Date: 01/21/2024 09:22 Performing Lab: [facility], [address] [place] [address] Pathology Dept Disclaimer If ancillary studies were utilized, the following Laboratory Developed Test (LDT) disclaimer will apply: Under CLIA requirements, [facility] is qualified to perform high complexity testing. For all ancillary stains, positive and negative controls stain appropriately. Performance characteristics of immunohistochemical and chromogenic in-situ hybridization tests have been determined by [facility]. These tests are used for clinical purposes, They should not be regarded as investigational or for research. Normal [facility] 36on 12-15-2023 36 Called Ayala to reschedule her appointment from 12/03/2023 with Rhys Mcnulty. No answer. LVM instructing her to call back and reschedule. Normal [facility] 36on 12-08-2023 36 Called Ayala to reschedule her appointment from 12/03/2023 with Rhys Mcnulty. No answer. LVM instructing her to call back and reschedule. Normal [facility] .Auto Diffon 11-30-2023 Basophil, Absolute 0.0 10 3/mcL Normal 0.0-0.2 [facility] Comment on above: Performed By: #### M DW, ANEU, GFR, TROPHS, CMP, LIP, ADIFF, CBC ####[address] [place], [place] [address] Basophils/100 WBC (Bld) 0.5 % Normal 0.0-2.5 [facility] Comment on above: Performed By: #### M DW, ANEU, GFR, TROPHS, CMP, LIP, ADIFF, CBC ####[address] [place], [place] [address] Eosinophil, Absolute 0.1 10 3/mcL Normal 0.0-0.7 [facility] Comment on above: Performed By: #### M DW, ANEU, GFR, TROPHS, CMP, LIP, ADIFF, CBC ####[address] [place], [place] [address] Eosinophils/100 WBC (Bld) 1.9 % Normal 0.0-7.0 [facility] Comment on above: Performed By: #### M DW, ANEU, GFR, TROPHS, CMP, LIP, ADIFF, CBC ####[address] [place], [place] [address] Lymphocyte, Absolute 2.1 10 3/mcL Normal 0.9-4.3 [facility] Comment on above: Performed By: #### M DW, ANEU, GFR, TROPHS, CMP, LIP, ADIFF, CBC ####[address] [place], [place] [address] Lymphocytes/100 WBC (Bld) 35.0 % Normal 20.0-40.0 [facility] Comment on above: Performed By: #### M DW, ANEU, GFR, TROPHS, CMP, LIP, ADIFF, CBC ####[address] [place], [place] [address] Monocyte, Absolute 0.5 10 3/mcL Normal 0.1-1.4 [facility] Comment on above: Performed By: #### M DW, ANEU, GFR, TROPHS, CMP, LIP, ADIFF, CBC ####[address] [place], [place] [address] Monocytes/100 WBC (Bld) 8.0 % Normal 2.0-13.0 [facility] Comment on above: Performed By: #### M DW, ANEU, GFR, TROPHS, CMP, LIP, ADIFF, CBC ####[facility] [place], [place] [address] Neutrophils/100 WBC (Bld) 54.6 % Normal 50.0-75.0 [facility] Comment on above: Performed By: #### M DW, ANEU, GFR, TROPHS, CMP, LIP, ADIFF, CBC ####[address] [place], [place] [address] .GFRon 11-30-2023 GFR 144 ml/min/1.73sqm Normal [facility] Comment on above: Result Comment: GFR Population mean for , Non- Americans Ages 20-29 = 116 mL/min/1.73 sq.m. Ages 30-39 = 107 mL/min/1.73 sq.m. Ages 40-49 = 99 mL/min/1.73 sq.m. Ages 50-59 = 93 mL/min/1.73 sq.m. Ages 60-69 = 85 mL/min/1.73 sq.m. Ages 70+ = 75 mL/min/1.73 sq.m. Chronic Kidney Disease: Less than 60 mL/min/1.73 square meters End Stage Renal Disease: Less than 15 mL/min/1.73 square meters Performed By: #### M DW, ANEU, GFR, TROPHS, CMP, LIP, ADIFF, CBC ####[place] [address] [place], [place] [address] GFR Non- 118 ml/min/1.73sqm Normal [facility] Comment on above: Result Comment: GFR Population mean for , Non- Americans Ages 20-29 = 116 mL/min/1.73 sq.m. Ages 30-39 = 107 mL/min/1.73 sq.m. Ages 40-49 = 99 mL/min/1.73 sq.m. Ages 50-59 = 93 mL/min/1.73 sq.m. Ages 60-69 = 85 mL/min/1.73 sq.m. Ages 70+ = 75 mL/min/1.73 sq.m. Chronic Kidney Disease: Less than 60 mL/min/1.73 square meters End Stage Renal Disease: Less than 15 mL/min/1.73 square meters Performed By: #### M DW, ANEU, GFR, TROPHS, CMP, LIP, ADIFF, CBC ####[address] [place] [address] .MDWon 11-30-2023 Monocyte Distribution Width 19.46 Normal 0.00-20.00 [facility] Comment on above: Result Comment: For ED adult patients suspected of sepsis, MDW<=20.0 does not rule out sepsis or risk of sepsis Performed By: #### M DW, ANEU, GFR, TROPHS, CMP, LIP, ADIFF, CBC ####[address] [place], [place] [address] .NEUABSon 11-30-2023 Neutrophil, Absolute 3.2 10 3/mcL Normal 2.3-8.1 [facility] Comment on above: Performed By: #### M DW, ANEU, GFR, TROPHS, CMP, LIP, ADIFF, CBC ####[address] [address] [place] [address] .Urinalysis Microscopic (AO) on 11-30-2023 UA Bacteria Trace Abnormal [facility] Comment on above: Performed By: #### U AMICARené, UA #### [address], [place] [address] UA RBC None Seen Normal None Seen [facility] Comment on above: Performed By: #### U SWETHA UA #### [place] [place], [place] [address] UA Squam Epithelial 0-5 Abnormal None Seen [facility] Comment on above: Performed By: #### U SWETHA, UA #### [address] [place] [address] [place], [place] [address] UA WBC 0-5 Abnormal None Seen [facility] Comment on above: Performed By: #### U SWETHA UA #### [address] [address] CBCon 11-30-2023 Erythrocyte distribution width (RBC) [Ratio] 13.6 % Normal 11.5-15.5 [facility] Comment on above: Performed By: #### M DW, ANEU, GFR, TROPHS, CMP, LIP, ADIFF, CBC ####[place] [address] Hematocrit (Bld) [Volume fraction] 36.7 % Normal 34.0-46.0 [facility] Comment on above: Performed By: #### M DW, ANEU, GFR, TROPHS, CMP, LIP, ADIFF, CBC ####[address] [address] Hgb 12.4 G/dL Normal 12.0-16.0 [facility] Comment on above: Performed By: #### M DW, ANEU, GFR, TROPHS, CMP, LIP, ADIFF, CBC ####[address] [address] MCH (RBC) [Entitic mass] 30.1 pg Normal 27.0-33.0 [facility] Comment on above: Performed By: #### M DW, ANEU, GFR, TROPHS, CMP, LIP, ADIFF, CBC ####[place] [id number] MCHC 33.8 G/dL Normal 32.0-36.0 [facility] Comment on above: Performed By: #### M DW, ANEU, GFR, TROPHS, CMP, LIP, ADIFF, CBC ####[place] [address] [place], [place] [address] MCV (RBC) [Entitic vol] 88.9 fL Normal 80.0-99.0 A [facility] Comment on above: Performed By: #### M DW, ANEU, GFR, TROPHS, CMP, LIP, ADIFF, CBC ####[place] [address] [place], [place] [address] Platelet 254 10 3/mcL Normal 150-450 [facility] Comment on above: Performed By: #### M DW, ANEU, GFR, TROPHS, CMP, LIP, ADIFF, CBC ####[address] [place], [place] [address] Platelet mean volume (Bld) [Entitic vol] 8.2 fL Normal 6.6-10.5 [facility] Comment on above: Performed By: #### M DW, ANEU, GFR, TROPHS, CMP, LIP, ADIFF, CBC ####[place] [address] [place], [place] [address] RBC 4.13 10 6/mcL Normal 4.10-5.30 [facility] Comment on above: Performed By: #### M DW, ANEU, GFR, TROPHS, CMP, LIP, ADIFF, CBC ####[place] [address] [place], [place] [address] WBC 5.9 10 3/mcL Normal 4.5-10.8 [facility] Comment on above: Performed By: #### M DW, ANEU, GFR, TROPHS, CMP, LIP, ADIFF, CBC ####[place] [address] [place], [place] [address] CMPon 11-30-2023 Albumin Level 3.7 G/dL Normal 3.5-5.0 [facility] Comment on above: Performed By: #### M DW, ANEU, GFR, TROPHS, CMP, LIP, ADIFF, CBC ####[address] [place], [place] [address] Albumin/Globulin [Mass ratio] 1.4 {ratio} Normal 1.1-2.5 [facility] Comment on above: Performed By: #### M DW, ANEU, GFR, TROPHS, CMP, LIP, ADIFF, CBC ####[address] [place], [place] [address] ALP [Catalytic activity/Vol] 109 U/L Normal 40-135 [facility] Comment on above: Performed By: #### M DW, ANEU, GFR, TROPHS, CMP, LIP, ADIFF, CBC ####[address] [place], [place] [address] ALT [Catalytic activity/Vol] 31 U/L Normal 14-59 [facility] Comment on above: Performed By: #### M DW, ANEU, GFR, TROPHS, CMP, LIP, ADIFF, CBC ####[address] [place], [place] [address] AST [Catalytic activity/Vol] 22 U/L Normal 10-40 [facility] Comment on above: Performed By: #### M DW, ANEU, GFR, TROPHS, CMP, LIP, ADIFF, CBC ####[address] [address] Bili Total 0.5 mg/dL Normal 0.2-1.0 [facility] Comment on above: Result Comment: Use of this assay is not recommended for patients undergoing treatment with eltrombopag due to the potential for falsely elevated results. Performed By: #### M DW, ANEU, GFR, TROPHS, CMP, LIP, ADIFF, CBC ####[address] [place], [place] [address] BUN/Creatinine Ratio 23 ratio Normal 7-27 [facility] Comment on above: Performed By: #### M DW, ANEU, GFR, TROPHS, CMP, LIP, ADIFF, CBC ####[address] [place], [place] [address] Calcium [Mass/Vol] 8.6 mg/dL Normal 8.4-10.2 [facility] Comment on above: Performed By: #### M DW, ANEU, GFR, TROPHS, CMP, LIP, ADIFF, CBC ####[address] [place], [place] [address] Chloride [Moles/Vol] 108 mmol/L High 98-107 [facility] Comment on above: Performed By: #### M DW, ANEU, GFR, TROPHS, CMP, LIP, ADIFF, CBC ####[address] [place], [place] [address] CO2 [Moles/Vol] 27 mmol/L Normal 22-29 [facility] Comment on above: Performed By: #### M DW, ANEU, GFR, TROPHS, CMP, LIP, ADIFF, CBC ####[address] [place], [place] [address] Creatinine [Mass/Vol] 0.53 mg/dL Low 0.55-1.02 [facility] Comment on above: Result Comment: Test ing performed on Siemens Dimension EXL analyzer using a modified kinetic Catia technique. Performed By: #### M DW, ANEU, GFR, TROPHS, CMP, LIP, ADIFF, CBC ####[address] [place], [place] [address] Electrolyte Balance 9.0 mEq/L Normal 4.0-15.0 [facility] Comment on above: Performed By: #### M DW, ANEU, GFR, TROPHS, CMP, LIP, ADIFF, CBC ####[address] [place], [place] [address] Globulin 2.7 G/dL Normal [facility] Comment on above: Performed By: #### M DW, ANEU, GFR, TROPHS, CMP, LIP, ADIFF, CBC ####[address] [address] [place], [place] [address] Glucose [Mass/Vol] 74 mg/dL Normal 70-105 [facility] Comment on above: Performed By: #### M DW, ANEU, GFR, TROPHS, CMP, LIP, ADIFF, CBC ####[address] [address] [place], [place] [address] Potassium [Moles/Vol] 4.0 mmol/L Normal 3.5-5.1 [facility] Comment on above: Performed By: #### M DW, ANEU, GFR, TROPHS, CMP, LIP, ADIFF, CBC ####[address] [place], [place] [address] Sodium [Moles/Vol] 144 mmol/L Normal 136-145 [facility] Comment on above: Performed By: #### M DW, ANEU, GFR, TROPHS, CMP, LIP, ADIFF, CBC ####[address] [address] [place], [place] [address] Total Protein 6.4 G/dL Normal 6.4-8.2 [facility] Comment on above: Performed By: #### M DW, ANEU, GFR, TROPHS, CMP, LIP, ADIFF, CBC ####[facility] [place], [place] [address] Urea nitrogen [Mass/Vol] 12 mg/dL Normal 7-18 [facility] Comment on above: Performed By: #### M DW, ANEU, GFR, TROPHS, CMP, LIP, ADIFF, CBC ####[place] [address] [place], [place] [address] CT ABD/PELVIS W/ IV CONTRAST ONLYon 11-30-2023 CT ABD/PELVIS W/ IV CONTRAST ONLY ORIGINAL EXAMINATION: CT OF THE ABDOMEN AND PELVIS WITH CONTRAST 11/30/2023 5:41 pm TECHNIQUE: CT of the abdomen and pelvis was performed with the administration of intravenous contrast. Multiplanar reformatted images are provided for review. Automated exposure control, iterative reconstruction, and/or weight based adjustment of the mA/kV was utilized to reduce the radiation dose to as low as reasonably achievable. COMPARISON: CT abdomen pelvis with contrast 09/15/2023. HISTORY: ORDERING SYSTEM PROVIDED HISTORY: Reason for Exam: rt sided pain x2 days, N+V, diarrhea pain FINDINGS: Visualized portion of the lower chest demonstrates no acute abnormality. Liver is within normal limits for size and demonstrates a smooth contour. No abnormal enhancement. Status post cholecystectomy. Adrenals are unremarkable in appearance. The spleen is within normal limits for size. Trace perisplenic free fluid. Unchanged size and appearance of pancreatic head cystic lesion. Kidneys are within normal limits for size and enhance symmetrically. 5 mm left midpole nonobstructing calculus. No hydroureteronephrosis is identified bilaterally. The urinary bladder is largely decompressed. Status post hysterectomy. Small hiatal hernia. 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 Unremarkable appearing anastomosis. No evidence of obstruction. Appendix is unremarkable. No free air. No abdominal or pelvic adenopathy. Abdominal aorta is nonaneurysmal with minimal calcified atherosclerotic plaque. No acute osseous or soft tissue abnormality. Redemonstration of changes status post L4-5 posterior decompression. IMPRESSION: 1. Trace perisplenic free fluid is nonspecific and potentially reactive however no other acute abnormality is appreciated within the abdomen or pelvis. 2. Stable nonobstructing 5 mm left nephrolithiasis. 3. Stable appearance of cystic pancreatic head lesion. Interpreted by: Mayte Zapien Preliminary Report By: Mayte Zapien Electronically signed By Mayte Zapien Dictated Date: 11/30/2023 6:20:05 PM Prelim Date: 11/30/2023 6:27:44 PM Sign Date: 11/30/2023 6:27:44 PM Ordering Provider: KURT Quinn [facility] LABORATORYOrdered By: SYSTEM SYSTEM on 11-30-2023 Albumin BCP dye [Mass/Vol] 3.7 G/dL Normal 3.5 - 5.0 G/dL AO ADM SS Albumin/Globulin [Mass ratio] 1.4 {ratio} Normal 1.1 - 2.5 ratio AO ADM SS ALP [Catalytic activity/Vol] 109 U/L Normal 40 - 135 U/L AO ADM SS ALT With P-5'-P [Catalytic activity/Vol] 31 U/L Normal 14 - 59 U/L AO ADM SS AST With P-5'-P [Catalytic activity/Vol] 22 U/L Normal 10 - 40 U/L AO ADM SS Basophils (Bld) [#/Vol] 0.0 103/mcL Normal 0.0 - 0.2 10^3/mcL AO Workflow SS Basophils/100 WBC (Bld) 0.5 % Normal 0.0 - 2.5 % AO Workflow SS Bilirubin [Mass/Vol] 0.5 mg/dL Normal 0.2 - 1 .0 mg/dL AO ADM SS Comment on above: Interpretive Data: U se of this assay is not recommended for patients undergoing treatment with eltrombopag due to the potential for falsely elevated results. Calcium [Mass/Vol] 8.6 mg/dL Normal 8.4 - 10. 2 mg/dL AO ADM SS Chloride [Moles/Vol] 108 mmol/L High 98 - 10 7 mmol/L AO ADM SS CO2 [Moles/Vol] 27 mmol/L Normal 22 - 29 mmol/L AO ADM SS Creatinine [Mass/Vol] 0.53 mg/dL Low 0.55 - 1.02 mg/dL AO ADM SS Comment on above: Interpretive Data: T esting performed on [employer] Dimension EXL analyzer using a modified kinetic Catia technique. Electrolyte Balance 9.0 mEq/L Normal 4.0 - 15 .0 mEq/L AO ADM SS Eosinophil, Absolute 0.1 103/mcL Normal 0.0 - 0 .7 10^3/mcL AO Workflow SS Eosinophils/100 WBC (Bld) 1.9 % Normal 0.0 - 7.0 % AO Workflow SS Erythrocyte distribution width (RBC) [Ratio] 13.6 % Normal 11.5 - 15.5 % AO Workflow SS GFR/1.73 sq M.predicted among blacks MDRD (S/P/Bld) [Vol rate/Area] 144 ml/min/1.73sqm Invalid Interpretation Code AO Chemistry S Comment on above: Interpretive Data: GFR Population mean for , Non- Americans Ages 20-29 = 116 mL/min/1.73 sq.m. Ages 30-39 = 107 mL/min/1.73 sq.m. Ages 40-49 = 99 mL/min/1.73 sq.m. Ages 50-59 = 93 mL/min/1.73 sq.m. Ages 60-69 = 85 mL/min/1.73 sq.m. Ages 70+ = 75 mL/min/1.73 sq.m. Chronic Kidney Disease: Less than 60 mL/min/1.73 square meters End Stage Renal Disease: Less than 15 mL/min/1.73 square meters GFR/1.73 sq M.predicted among non-blacks MDRD (S/P/Bld) [Vol rate/Area] 118 ml/min/1.73sqm Invalid Interpretation Code AO Chemistry S Comment on above: Interpretive Data: GFR Population mean for , Non- Americans Ages 20-29 = 116 mL/min/1.73 sq.m. Ages 30-39 = 107 mL/min/1.73 sq.m. Ages 40-49 = 99 mL/min/1.73 sq.m. Ages 50-59 = 93 mL/min/1.73 sq.m. Ages 60-69 = 85 mL/min/1.73 sq.m. Ages 70+ = 75 mL/min/1.73 sq.m. Chronic Kidney Disease: Less than 60 mL/min/1.73 square meters End Stage Renal Disease: Less than 15 mL/min/1.73 square meters Globulin 2.7 G/dL Invalid Interpretation Code AO ADM SS Glucose [Mass/Vol] 74 mg/dL Normal 70 - 105 mg/dL AO ADM SS Hematocrit (Bld) [Volume fraction] 36.7 % Normal 34.0 - 46.0 % AO Workflow SS Hemoglobin (Bld) [Mass/Vol] 12.4 G/dL Normal 12.0 - 16.0 G/dL AO Workflow SS Lipase [Catalytic activity/Vol] 38 U/L Normal 16 - 77 U/L AO ADM SS Lymphocytes (Bld) [#/Vol] 2.1 103/mcL Normal 0.9 - 4.3 10^3/mcL AO Workflow SS Lymphocytes/100 WBC (Bld) 35.0 % Normal 20.0 - 40.0 % AO Workflow SS MCH (RBC) [Entitic mass] 30.1 pg Normal 27.0 - 33.0 pg AO Workflow SS MCHC 33.8 G/dL Normal 32.0 - 36.0 G/dL AO Workflow SS MCV (RBC) [Entitic vol] 88.9 fL Normal 80.0 - 99.0 fL AO Workflow SS Monocyte distribution width Auto (Bld) [Entitic vol] 19.46 1 Normal 0.00 - 20.00 AO Workflow SS Comment on above: Result Comment: For ED adult patients suspected of sepsis, MDW<=20.0 does not rule out sepsis or risk of sepsis Monocytes (Bld) [#/Vol] 0.5 103/mcL Normal 0.1 - 1.4 10^3/mcL AO Workflow SS Monocytes/100 WBC (Bld) 8.0 % Normal 2.0 - 13.0 % AO Workflow SS Neutrophils (Bld) [#/Vol] 3.2 103/mcL Normal 2.3 - 8.1 10^3/mcL AO Workflow SS Neutrophils/100 WBC (Bld) 54.6 % Normal 50.0 - 75.0 % AO Workflow SS Platelet mean volume (Bld) [Entitic vol] 8.2 fL Normal 6.6 - 10.5 fL AO Workflow SS Platelets (Bld) [#/Vol] 254 103/mcL Normal 150 - 450 10^3/mcL AO Workflow SS Potassium [Moles/Vol] 4.0 mmol/L Normal 3.5 - 5.1 mmol/L AO ADM SS Protein [Mass/Vol] 6.4 G/dL Normal 6.4 - 8.2 G/dL AO ADM SS RBC (Bld) [#/Vol] 4.13 106/mcL Normal 4.10 - 5.3 0 10^6/mcL AO Workflow SS Sodium [Moles/Vol] 144 mmol/L Normal 136 - 145 mmol/L AO ADM SS Troponin I.cardiac DL <= 0.01 ng/mL [Mass/Vol] ng/L Normal 0 - 51 ng/L AO ADM SS Comment on above: Interpretive Data: H igh Sensitive Troponin I Reference Ranges: Female: 0-51 ng/L Male: 0-76 ng/L Testing performed on [employer] using a homogeneous sandwich chemiluminescent immunoassay based on [employer] technology. Urea nitrogen [Mass/Vol] 12 mg/dL Normal 7 - 18 mg/dL AO ADM SS Urea nitrogen/Creatinine [Mass ratio] 23 ratio Normal 7 - 27 ratio AO ADM SS WBC (Bld) [#/Vol] 5.9 103/mcL Normal 4.5 - 10.8 10^3/mcL AO Workflow SS LABORATORYOrdered By: Anita larose on 11-30-2023 Appearance (U) Clear (11/30/23 4:48 PM) Normal Clear AO Auto Urine SS Bacteria LM.HPF (Urine sed) [#/Area] Trace /HPF Invalid Interpretation Code AO Auto Urine SS Bilirubin Ql (U) Negative (11/30/23 4:48 PM) Normal Negative AO Auto Urine SS Color (U) Yellow (11/30/23 4:48 PM) Normal AO Auto Urine SS Glucose Test strip (U) [Mass/Vol] 250 mg/dL Invalid Interpretation Code Negative AO Auto Urine SS Hemoglobin Auto test strip (U) [Mass/Vol] Negative (11/30/23 4:48 PM) Normal Negative AO Auto Urine SS Ketones Ql (U) Negative Normal Negative AO Auto Urine SS UA Leuk Est Trace *ABN* (11/30/23 4:48 PM) Invalid Interpretation Code Negative AO Auto Urine SS UA Nitrite Negative (11/30/23 4:48 PM) Normal Negative AO Auto Urine SS UA pH 5.5 (11/30/23 4:48 PM) Normal 5.0 - 8.0 AO Auto Urine SS UA Protein Negative Normal Negative AO Auto Urine SS UA RBC None Seen /HPF Normal None Seen AO Auto Urine SS UA Spec Grav 1.025 (11/30/23 4:48 PM) Normal 1.015-1.025 AO Auto Urine SS UA Specimen Type Clean Catch (11/30/23 4:48 PM) Normal AO Auto Urine SS UA Squam Epithelial 0-5 /HPF Invalid Interpretation Code None Seen AO Auto Urine SS UA Urobilinogen 0.2 E.U./dL Normal 0.2-1.0 AO Auto Urine SS WBC LM.HPF (Urine sed) [#/Area] 0-5 /HPF Invalid Interpretation Code None Seen AO Auto Urine SS LIPon 11-30-2023 Lipase Level 38 U/L Normal 16-77 [facility] Comment on above: Performed By: #### M DW, ANEU, GFR, TROPHS, CMP, LIP, ADIFF, CBC ####[place] [address] [place], [place] [address] [facility]20[facility] High Sensitivity Troponin I <4 Normal 0-51 [facility] Comment on above: Result Comment: High Sensitive Troponin I Reference Ranges: Female: 0-51 ng/L Male: 0-76 ng/L Testing performed on [employer] using a homogeneous sandwich chemiluminescent immunoassay based on [employer] technology. Performed By: #### M DW, ANEU, GFR, TROPHS, CMP, LIP, ADIFF, CBC ####[place] [address] [place], [place] [address] UAon 11-30-2023 Color (U) Yellow Normal [facility] Comment on above: Performed By: #### U AMICAO, UA #### [address] [place], [place] [address] Glucose (U) [Mass/Vol] 250 mg/dL Abnormal Negative [facility] Comment on above: Performed By: #### U AMICAO, UA #### [address] [address] Ketones Ql (U) Negative Normal Negative [facility] Comment on above: Performed By: #### U AMICAO, UA #### [place] [address] UA Appear Clear Normal Clear [facility] Comment on above: Performed By: #### U AMICAO, UA #### [address] [address] UA Blood Negative Normal Negative [facility] Comment on above: Performed By: #### U AMICAO, UA #### [place] [address] UA Leuk Est Trace Abnormal Negative [facility] Comment on above: Performed By: #### U AMICAO, UA #### [place] [address] UA Nitrite Negative Normal Negative [facility] Comment on above: Performed By: #### U AMICAO, UA #### [place] [address] UA pH 5.5 Normal 5.0 - 8.0 [facility] Comment on above: Performed By: #### U AMICAO, UA #### [place] [address] UA Protein Negative Normal Negative [facility] Comment on above: Performed By: #### U AMICAO, UA #### [place] [address] UA Spec Grav 1.025 Normal 1.015-1.025 [facility] Comment on above: Performed By: #### U AMICAO, UA #### [place] [address] UA Specimen Type Clean Catch Normal [facility] Comment on above: Performed By: #### U AMICAO, UA #### [place] [address] UA Urobilinogen 0.2 E.U./dL Normal 0.2-1.0 [facility] Comment on above: Performed By: #### U QUENTIN POSADA #### [place] [address] [place], [place] [address] Urobilinogen (U) [Mass/Vol] Negative Normal Negative [facility] Comment on above: Performed By: #### U QUENTIN POSADA #### [place] [address] [place], [place] [address] XR CHEST 2 VIEWSon 4 XR CHEST 2 VIEWS ORIGINAL EXAMINATION: TWO XRAY VIEWS OF THE CHEST11/30/2023 5:43 pm COMPARISON: CTA chest 03/13/2022 HISTORY: ORDERING SYSTEM PROVIDED HISTORY: Reason for Exam: Abdominal pain FINDINGS: Stable cardiomediastinal silhouette. No focal consolidation or pulmonary edema. No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 above: Performed By: #### L IP, CMP, ADIFF, GFR, MDW, CBC, ANEU #### [address] [address] Lymphocytes/100 WBC (Bld) 26.5 % Normal 10.0-50.0 [facility] ([place]) Comment on above: Performed By: #### L IP, CMP, ADIFF, GFR, MDW, CBC, ANEU #### [address] [address] Monocyte, Absolute 0.8 10 3/mcL Normal 0.2-1.0 [facility] ([place]) Comment on above: Performed By: #### L IP, CMP, ADIFF, GFR, MDW, CBC, ANEU #### [address] [address] Monocytes/100 WBC (Bld) 6.8 % Normal 1.7-13.0 [facility] ([place]) Comment on above: Performed By: #### L IP, CMP, ADIFF, GFR, MDW, CBC, ANEU #### [address] [address] Neutrophils/100 WBC (Bld) 64.6 % Normal 37.0-80.0 [facility] ([place]) Comment on above: Performed By: #### L IP, CMP, ADIFF, GFR, MDW, CBC, ANEU #### [address] [address] .GFRon 09-06-2023 GFR 135 ml/min/1.73sqm Normal [facility] ([place]) Comment on above: Result Comment: GFR Population mean for , Non- Americans Ages 20-29 = 116 mL/min/1.73 sq.m. Ages 30-39 = 107 mL/min/1.73 sq.m. Ages 40-49 = 99 mL/min/1.73 sq.m. Ages 50-59 = 93 mL/min/1.73 sq.m. Ages 60-69 = 85 mL/min/1.73 sq.m. Ages 70+ = 75 mL/min/1.73 sq.m. Chronic Kidney Disease: Less than 60 mL/min/1.73 square meters End Stage Renal Disease: Less than 15 mL/min/1.73 square meters Performed By: #### L IP, CMP, ADIFF, GFR, MDW, CBC, ANEU #### [address] [address] GFR Non- 111 ml/min/1.73sqm Normal [facility] ([place]) Comment on above: Result Comment: GFR Population mean for , Non- Americans Ages 20-29 = 116 mL/min/1.73 sq.m. Ages 30-39 = 107 mL/min/1.73 sq.m. Ages 40-49 = 99 mL/min/1.73 sq.m. Ages 50-59 = 93 mL/min/1.73 sq.m. Ages 60-69 = 85 mL/min/1.73 sq.m. Ages 70+ = 75 mL/min/1.73 sq.m. Chronic Kidney Disease: Less than 60 mL/min/1.73 square meters End Stage Renal Disease: Less than 15 mL/min/1.73 square meters Performed By: #### L IP, CMP, ADIFF, GFR, MDW, CBC, ANEU #### [place] [address] .MDWon 09-06-2023 Monocyte Distribution Width 17.39 Normal 0.00-20.00 [facility] ([place]) Comment on above: Result Comment: For ED adult patients suspected of sepsis, MDW<=20.0 does not rule out sepsis or risk of sepsis Performed By: #### L IP, CMP, ADIFF, GFR, MDW, CBC, ANEU #### [place] [address] .NEUABSon 09-06-2023 Neutrophil, Absolute 7.4 10 3/mcL High 2.9-6.2 [facility] ([place]) Comment on above: Performed By: #### L IP, CMP, ADIFF, GFR, MDW, CBC, ANEU #### [place] [address] .Urinalysis Microscopic (AO) on 09-06-2023 UA RBC 0-5 Abnormal None Seen [facility] ([place]) Comment on above: Performed By: #### L IP, CMP, ADIFF, GFR, MDW, CBC, ANEU #### [place] [address] UA Squam Epithelial 0-5 Abnormal None Seen [facility] ([place]) Comment on above: Performed By: #### L IP, CMP, ADIFF, GFR, MDW, CBC, ANEU #### [place] [address] UA WBC 5-10 Abnormal None Seen [facility] ([place]) Comment on above: Performed By: #### L IP, CMP, ADIFF, GFR, MDW, CBC, ANEU #### [address] [address] CBCon 09-06-2023 Erythrocyte distribution width (RBC) [Ratio] 13.1 % Normal 11.5-14.5 [facility] ([place]) Comment on above: Performed By: #### L IP, CMP, ADIFF, GFR, MDW, CBC, ANEU #### [address] [address] Hematocrit (Bld) [Volume fraction] 38.5 % Normal 37.0-47.0 [facility] ([place]) Comment on above: Performed By: #### L IP, CMP, ADIFF, GFR, MDW, CBC, ANEU #### [address] [address] Hgb 12.9 G/dL Normal 12.0-16.0 [facility] ([place]) Comment on above: Performed By: #### L IP, CMP, ADIFF, GFR, MDW, CBC, ANEU #### [address] [address] MCH (RBC) [Entitic mass] 30.6 pg Normal 27.0-31.2 [facility] ([place]) Comment on above: Performed By: #### L IP, CMP, ADIFF, GFR, MDW, CBC, ANEU #### [address] [address] MCHC 33.6 G/dL Normal 33.0-37.0 [facility] ([place]) Comment on above: Performed By: #### L IP, CMP, ADIFF, GFR, MDW, CBC, ANEU #### [address] [address] MCV (RBC) [Entitic vol] 91.0 fL Normal 80.0-94.0 [facility] ([place]) Comment on above: Performed By: #### L IP, CMP, ADIFF, GFR, MDW, CBC, ANEU #### [address] [address] Platelet 274 10 3/mcL Normal 130-400 [facility] ([place]) Comment on above: Performed By: #### L IP, CMP, ADIFF, GFR, MDW, CBC, ANEU #### [address] [address] Platelet mean volume (Bld) [Entitic vol] 8.3 fL Normal 7.4-10.4 [facility] ([place]) Comment on above: Performed By: #### L IP, CMP, ADIFF, GFR, MDW, CBC, ANEU #### [address] [address] RBC 4.23 10 6/mcL Normal 4.20-5.40 [facility] ([place]) Comment on above: Performed By: #### L IP, CMP, ADIFF, GFR, MDW, CBC, ANEU #### [address] [address] WBC 11.5 10 3/mcL High 4.6-10.8 [facility] ([place]) Comment on above: Performed By: #### L IP, CMP, ADIFF, GFR, MDW, CBC, ANEU #### [address] [address] CMPon 09-06-2023 Albumin Level 4.2 G/dL Normal 3.5-5.0 [facility] ([place]) Comment on above: Performed By: #### L IP, CMP, ADIFF, GFR, MDW, CBC, ANEU #### [address] [address] Albumin/Globulin [Mass ratio] 1.4 {ratio} Normal 1.1-2.5 [facility] ([place]) Comment on above: Performed By: #### L IP, CMP, ADIFF, GFR, MDW, CBC, ANEU #### [address] [address] ALT [Catalytic activity/Vol] 45 U/L Normal 14-59 [facility] ([place]) Comment on above: Performed By: #### L IP, CMP, ADIFF, GFR, MDW, CBC, ANEU #### [address] [address] AST [Catalytic activity/Vol] 26 U/L Normal 10-40 [facility] ([place]) Comment on above: Performed By: #### L IP, CMP, ADIFF, GFR, MDW, CBC, ANEU #### [address] [address] BUN/Creatinine Ratio 32 ratio High 7-27 [facility] ([place]) Comment on above: Performed By: #### L IP, CMP, ADIFF, GFR, MDW, CBC, ANEU #### [address] [address] Calcium [Mass/Vol] 9.0 mg/dL Normal 8.4-10.2 [facility] ([place]) Comment on above: Performed By: #### L IP, CMP, ADIFF, GFR, MDW, CBC, ANEU #### [address] [address] CO2 [Moles/Vol] 24 mmol/L Normal 22-29 [facility] ([place]) Comment on above: Performed By: #### L IP, CMP, ADIFF, GFR, MDW, CBC, ANEU #### [address] [address] Creatinine [Mass/Vol] 0.56 mg/dL Normal 0.55-1.02 [facility] ([place]) Comment on above: Performed By: #### L IP, CMP, ADIFF, GFR, MDW, CBC, ANEU #### [address] [address] Electrolyte Balance 12.0 mEq/L Normal 4.0-15.0 [facility] ([place]) Comment on above: Performed By: #### L IP, CMP, ADIFF, GFR, MDW, CBC, ANEU #### [address] [address] Globulin 2.9 G/dL Normal [facility] ([place]) Comment on above: Performed By: #### L IP, CMP, ADIFF, GFR, MDW, CBC, ANEU #### [address] [address] Glucose [Mass/Vol] 82 mg/dL Normal 70-105 [facility] ([place]) Comment on above: Performed By: #### L IP, CMP, ADIFF, GFR, MDW, CBC, ANEU #### [address] [address] Urea nitrogen [Mass/Vol] 18 mg/dL Normal 7-18 [facility] ([place]) Comment on above: Performed By: #### L IP, CMP, ADIFF, GFR, MDW, CBC, ANEU #### [place] [address] ALP [Catalytic activity/Vol] 132 U/L Normal 40-135 [facility] ([place]) Comment on above: Performed By: #### L IP, CMP, ADIFF, GFR, MDW, CBC, ANEU #### [address] [address] Bili Total 0.3 mg/dL Normal 0.2-1.0 [facility] ([place]) Comment on above: Result Comment: Use of this assay is not recommended for patients undergoing treatment with eltrombopag due to the potential for falsely elevated results. Performed By: #### L IP, CMP, ADIFF, GFR, MDW, CBC, ANEU #### [address] [address] Chloride [Moles/Vol] 105 mmol/L Normal 98-107 [facility] ([place]) Comment on above: Performed By: #### L IP, CMP, ADIFF, GFR, MDW, CBC, ANEU #### [address] [address] Potassium [Moles/Vol] 4.4 mmol/L Normal 3.5-5.1 [facility] ([place]) Comment on above: Performed By: #### L IP, CMP, ADIFF, GFR, MDW, CBC, ANEU #### [address] [address] Sodium [Moles/Vol] 141 mmol/L Normal 136-145 [facility] ([place]) Comment on above: Performed By: #### L IP, CMP, ADIFF, GFR, MDW, CBC, ANEU #### [place] [address] [place], [place] [address] Total Protein 7.1 G/dL Normal 6.4-8.2 [facility] ([place]) Comment on above: Performed By: #### L IP, CMP, ADIFF, GFR, MDW, CBC, ANEU #### [place] [address] [place], [place] [address] CT ABD/PELVIS W/ IV CONTRAST ONLYon 09-06-2023 CT ABD/PELVIS W/ IV CONTRAST ONLY ORIGINAL EXAMINATION: CT OF THE ABDOMEN AND PELVIS WITH CONTRAST 09/06/2023 8:22 pm TECHNIQUE: CT of the abdomen and pelvis was performed with the administration of intravenous contrast. Multiplanar reformatted images are provided for review. Automated exposure control, iterative reconstruction, and/or weight based adjustment of the mA/kV was utilized to reduce the radiation dose to as low as reasonably achievable. COMPARISON: CT abdomen pelvis April 02, 2023. HISTORY: ORDERING SYSTEM PROVIDED HISTORY: Reason for Exam: rlq pain with bloating x 1 day. Hx of hernis sx in the past abdominal pain FINDINGS: Lower Chest: No focal consolidation. Organs: Cholecystectomy. Similar appearing pancreatic head cyst. Parapelvic cysts of the kidneys. Nonobstructing nephrolithiasis in the left mid kidney. GI/Bowel: Moderate amount of stool in the colon and rectum. Fecalized loops of ileum. Postsurgical changes of the stomach and small bowel. Pelvis: Hysterectomy. Bladder unremarkable. Peritoneum/Retroperiton eum: Nonaneurysmal abdominal aorta. No enlarged lymph nodes. Similar appearing haziness to the root of the mesentery which has a wide differential (norman mesentery). Bones/Soft Tissues: Degenerative and postsurgical changes of the spine. IMPRESSION: Moderate amount of stool in the colon and rectum. Fecalized loops of distal ileum in the right lower quadrant which can be seen in slow transit. Interpreted by: Robinson Hurt Preliminary Report By: Robinson Hurt Electronically signed By Robinson Hurt Dictated Date: 09/06/2023 8:23:41 PM Prelim Date: 09/06/2023 8:29:26 PM Sign Date: 09/06/2023 8:29:26 PM Ordering Provider: ANNE-MARIE Quinn [facility] ([place]) LABORATORYOrdered By: SYSTEM SYSTEM on 09-06-2023 Albumin BCP dye [Mass/Vol] 4.2 G/dL Normal 3.5 - 5.0 G/dL AO ADM SS Albumin/Globulin [Mass ratio] 1.4 {ratio} Normal 1.1 - 2.5 ratio AO ADM SS ALP [Catalytic activity/Vol] 132 U/L Normal 40 - 135 U/L AO ADM SS ALT With P-5'-P [Catalytic activity/Vol] 45 U/L Normal 14 - 59 U/L AO ADM SS AST With P-5'-P [Catalytic activity/Vol] 26 U/L Normal 10 - 40 U/L AO ADM SS Basophil, Absolute 0.1 103/mcL Normal 0.0 - 0.2 10^3/mcL AO Workflow SS Basophils/100 WBC (Bld) 0.5 % Normal 0.0 - 2.5 % AO Workflow SS Bilirubin [Mass/Vol] 0.3 mg/dL Normal 0.2 - 1 .0 mg/dL AO ADM SS Comment on above: Interpretive Data: U se of this assay is not recommended for patients undergoing treatment with eltrombopag due to the potential for falsely elevated results. Calcium [Mass/Vol] 9.0 mg/dL Normal 8.4 - 10. 2 mg/dL AO ADM SS Chloride [Moles/Vol] 105 mmol/L Normal 98 - 10 7 mmol/L AO ADM SS CO2 [Moles/Vol] 24 mmol/L Normal 22 - 29 mmol/L AO ADM SS Creatinine [Mass/Vol] 0.56 mg/dL Normal 0.55 - 1.02 mg/dL AO ADM SS Electrolyte Balance 12.0 mEq/L Normal 4.0 - 15 .0 mEq/L AO ADM SS Eosinophil, Absolute 0.2 103/mcL Normal 0.0 - 0 .4 10^3/mcL AO Workflow SS Eosinophils/100 WBC (Bld) 1.6 % Normal 0.0 - 7.0 % AO Workflow SS Erythrocyte distribution width (RBC) [Ratio] 13.1 % Normal 11.5 - 14.5 % AO Workflow SS GFR/1.73 sq M.predicted among blacks MDRD (S/P/Bld) [Vol rate/Area] 135 ml/min/1.73sqm Invalid Interpretation Code AO Chemistry S Comment on above: Interpretive Data: GFR Population mean for , Non- Americans Ages 20-29 = 116 mL/min/1.73 sq.m. Ages 30-39 = 107 mL/min/1.73 sq.m. Ages 40-49 = 99 mL/min/1.73 sq.m. Ages 50-59 = 93 mL/min/1.73 sq.m. Ages 60-69 = 85 mL/min/1.73 sq.m. Ages 70+ = 75 mL/min/1.73 sq.m. Chronic Kidney Disease: Less than 60 mL/min/1.73 square meters End Stage Renal Disease: Less than 15 mL/min/1.73 square meters GFR/1.73 sq M.predicted among non-blacks MDRD (S/P/Bld) [Vol rate/Area] 111 ml/min/1.73sqm Invalid Interpretation Code AO Chemistry S Comment on above: Interpretive Data: GFR Population mean for , Non- Americans Ages 20-29 = 116 mL/min/1.73 sq.m. Ages 30-39 = 107 mL/min/1.73 sq.m. Ages 40-49 = 99 mL/min/1.73 sq.m. Ages 50-59 = 93 mL/min/1.73 sq.m. Ages 60-69 = 85 mL/min/1.73 sq.m. Ages 70+ = 75 mL/min/1.73 sq.m. Chronic Kidney Disease: Less than 60 mL/min/1.73 square meters End Stage Renal Disease: Less than 15 mL/min/1.73 square meters Globulin 2.9 G/dL Invalid Interpretation Code AO ADM SS Glucose [Mass/Vol] 82 mg/dL Normal 70 - 105 mg/dL AO ADM SS Hematocrit (Bld) [Volume fraction] 38.5 % Normal 37.0 - 47.0 % AO Workflow SS Hemoglobin (Bld) [Mass/Vol] 12.9 G/dL Normal 12.0 - 16.0 G/dL AO Workflow SS Lipase [Catalytic activity/Vol] 103 U/L High 16 - 77 U/L AO ADM SS Lymphocyte, Absolute 3.0 103/mcL Normal 0.8 - 3 .9 10^3/mcL AO Workflow SS Lymphocytes/100 WBC (Bld) 26.5 % Normal 10.0 - 50.0 % AO Workflow SS MCH (RBC) [Entitic mass] 30.6 pg Normal 27.0 - 31.2 pg AO Workflow SS MCHC 33.6 G/dL Normal 33.0 - 37.0 G/dL AO Workflow SS MCV (RBC) [Entitic vol] 91.0 fL Normal 80.0 - 94.0 fL AO Workflow SS Monocyte distribution width Auto (Bld) [Entitic vol] 17.39 1 Normal 0.00 - 20.00 AO Workflow SS Comment on above: Result Comment: For ED adult patients suspected of sepsis, MDW<=20.0 does not rule out sepsis or risk of sepsis Monocyte, Absolute 0.8 103/mcL Normal 0.2 - 1.0 10^3/mcL AO Workflow SS Monocytes/100 WBC (Bld) 6.8 % Normal 1.7 - 13.0 % AO Workflow SS Neutrophil, Absolute 7.4 103/mcL High 2.9 - 6 .2 10^3/mcL AO Workflow SS Neutrophils/100 WBC (Bld) 64.6 % Normal 37.0 - 80.0 % AO Workflow SS Platelet mean volume (Bld) [Entitic vol] 8.3 fL Normal 7.4 - 10.4 fL AO Workflow SS Platelets (Bld) [#/Vol] 274 103/mcL Normal 130 - 400 10^3/mcL AO Workflow SS Potassium [Moles/Vol] 4.4 mmol/L Normal 3.5 - 5.1 mmol/L AO ADM SS Protein [Mass/Vol] 7.1 G/dL Normal 6.4 - 8.2 G/dL AO ADM SS RBC (Bld) [#/Vol] 4.23 106/mcL Normal 4.20 - 5.4 0 10^6/mcL AO Workflow SS Sodium [Moles/Vol] 141 mmol/L Normal 136 - 145 mmol/L AO ADM SS Urea nitrogen [Mass/Vol] 18 mg/dL Normal 7 - 18 mg/dL AO ADM SS Urea nitrogen/Creatinine [Mass ratio] 32 ratio High 7 - 27 ratio AO ADM SS WBC (Bld) [#/Vol] 11.5 103/mcL High 4.6 - 10.8 10^3/mcL AO Workflow SS LABORATORYOrdered By: Earline Hay on 09-06-2023 Appearance (U) Clear (09/06/23 7:05 PM) Normal Clear AO Auto Urine SS Bilirubin Ql (U) Negative (09/06/23 7:05 PM) Normal Negative AO Auto Urine SS Color (U) Yellow (09/06/23 7:05 PM) Normal AO Auto Urine SS Glucose Test strip (U) [Mass/Vol] Negative Normal Negative AO Auto Urine SS Hemoglobin Auto test strip (U) [Mass/Vol] Negative (09/06/23 7:05 PM) Normal Negative AO Auto Urine SS Ketones Ql (U) Negative Normal Negative AO Auto Urine SS UA Leuk Est Trace *ABN* (09/06/23 7:05 PM) Invalid Interpretation Code Negative AO Auto Urine SS UA Nitrite Negative (09/06/23 7:05 PM) Normal Negative AO Auto Urine SS UA pH 5.5 (09/06/23 7:05 PM) Normal 5.0 - 8.0 AO Auto Urine SS UA Protein Negative Normal Negative AO Auto Urine SS UA RBC 0-5 /HPF Invalid Interpretation Code None Seen AO Auto Urine SS UA Spec Grav 1.015 (09/06/23 7:05 PM) Normal 1.015-1.025 AO Auto Urine SS UA Specimen Type Clean Catch (09/06/23 7:05 PM) Normal AO Auto Urine SS UA Squam Epithelial 0-5 /HPF Invalid Interpretation Code None Seen AO Auto Urine SS UA Urobilinogen 0.2 E.U./dL Normal 0.2-1.0 AO Auto Urine SS WBC LM.HPF (Urine sed) [#/Area] 5-10 /HPF Invalid Interpretation Code None Seen AO Auto Urine SS LIPon 09-06-2023 Lipase Level 103 U/L High 16-77 [facility] ([place]) Comment on above: Performed By: #### L IP, CMP, BRAN, GFR, MDW, CBC, ANEU #### [place] [address] [address] UAon 09-06-2023 Color (U) Yellow Normal [facility] ([place]) Comment on above: Performed By: #### L IP, CMP, ADRAINER, GFR, MDW, CBC, ANEU #### [address] [address] Glucose (U) [Mass/Vol] Negative Normal Negative [facility] ([place]) Comment on above: Performed By: #### L IP, CMP, ADIFF, GFR, MDW, CBC, ANEU #### [address] [address] Ketones Ql (U) Negative Normal Negative [facility] ([place]) Comment on above: Performed By: #### L IP, CMP, ADIFF, GFR, MDW, CBC, ANEU #### [address] [address] UA Appear Clear Normal Clear [facility] ([place]) Comment on above: Performed By: #### L IP, CMP, ADIFF, GFR, MDW, CBC, ANEU #### [address] [address] UA Blood Negative Normal Negative [facility] ([place]) Comment on above: Performed By: #### L IP, CMP, ADIFF, GFR, MDW, CBC, ANEU #### [address] [address] UA Leuk Est Trace Abnormal Negative [facility] ([place]) Comment on above: Performed By: #### L IP, CMP, ADIFF, GFR, MDW, CBC, ANEU #### [address] [address] UA Nitrite Negative Normal Negative [facility] ([place]) Comment on above: Performed By: #### L IP, CMP, ADIFF, GFR, MDW, CBC, ANEU #### [address] [address] UA pH 5.5 Normal 5.0 - 8.0 [facility] ([place]) Comment on above: Performed By: #### L IP, CMP, ADIFF, GFR, MDW, CBC, ANEU #### [address] [address] UA Protein Negative Normal Negative [facility] ([place]) Comment on above: Performed By: #### L IP, CMP, ADIFF, GFR, MDW, CBC, ANEU #### [address] [address] UA Spec Grav 1.015 Normal 1.015-1.025 [facility] ([place]) Comment on above: Performed By: #### L IP, CMP, ADIFF, GFR, MDW, CBC, ANEU #### [address] [address] UA Specimen Type Clean Catch Normal [facility] ([place]) Comment on above: Performed By: #### L IP, CMP, ADIFF, GFR, MDW, CBC, ANEU #### [place] [address] UA Urobilinogen 0.2 E.U./dL Normal 0.2-1.0 [facility] ([place]) Comment on above: Performed By: #### L IP, CMP, ADIFF, GFR, MDW, CBC, ANEU #### [place] [address] Urobilinogen (U) [Mass/Vol] Negative Normal Negative [facility] ([place]) Comment on above: Performed By: #### L IP, CMP, ADIFF, GFR, MDW, CBC, ANEU #### [place] [address] 36on 08-10-2023 36 2 attempts Called and spoke with pt to schedule appt. Pt stated she is on another call right now pt state she will call us later to schedule. Thank you Normal [facility] 36on 08-07-2023 36 Called pt to schedul e appt pt didn't answer, lmtcb. Thank you Normal [facility] BASIC METABOLIC PANELon 06-0 Anion gap [Moles/Vol] 5 mmol/L Normal 3-13 [facility] Comment on above: Performed By: #### L AB103, LAB15 ####Director Of User Experience: WALESKA GUNTER ([phone])[facility] [place] ([address] Calcium [Mass/Vol] 8.2 mg/dL Low 8.4-10.4 [facility] Comment on above: Performed By: #### L AB103, LAB15 ####Director Of User Experience: WALESKA GUNTER ([phone])[facility])[address] [place] [address] Chloride [Moles/Vol] 113 mmol/L High 98-107 [facility] Comment on above: Performed By: #### L [id number], [id number] ####Director Of User Experience: WALESKA GUNTER ([id number])[facility] ([facility])[address] [place] [address] CO2 [Moles/Vol] 21 mmol/L Low 22-30 [facility] Comment on above: Performed By: #### L [id number], [id number] ####Director Of User Experience: WALESKA GUNTER ([id number])[facility] ([facility])[address] [place] [address] Creatinine [Mass/Vol] 0.38 mg/dL Low 0.52-1.04 [facility] Comment on above: Performed By: #### L [id number], [id number] ####Director Of User Experience: WALESKA GUNTER ([id number])[facility] ([facility])[address] [place] [address] GLOMERULAR FILTRATION RATE ML/MIN/1.73 SQ M.PREDICTED >90.0 Normal >60.0 [facility] Comment on above: Result Comment: Calc ulation based on the Chronic Kidney Disease Epidemiology Collaboration (CKD-EPI) equation refit without adjustment for race Performed By: #### L [id number], LAB15 ####Director Of User Experience: WALESKA GUNTER ([id number])[facility] ([facility])[address] [place] [address] [place] Glucose [Mass/Vol] 72 mg/dL Normal 70-100 [facility] Comment on above: Performed By: #### L [id number], LAB15 ####Director Of User Experience: WALESKA GUNETR ([id number])[facility])[address] [place] [address] [place] Potassium [Moles/Vol] 3.5 mmol/L Normal 3.5-5.1 [facility] Comment on above: Performed By: #### L [id number], LAB15 ####Director Of User Experience: WALESKA GUNTER ([id number])[facility] ([facility])[address] [place] [address] Sodium [Moles/Vol] 139 mmol/L Normal 135-145 [facility] Comment on above: Performed By: #### L [id number], LAB15 ####Director Of User Experience: WALESKA GUNTER ([id number])[facility] ([facility])[address] [place] [address] Urea nitrogen [Mass/Vol] 8 mg/dL Normal 7-17 [facility] Comment on above: Performed By: #### L [id number], LAB15 ####Director Of User Experience: WALESKA GUNTER ([id number])[facility] ([facility])[address] [place] [address] Bacteria identified Cx Nom ( U)Ordered By: Ayesha Benito on 08-07-2023 Interpretation and review of laboratory results Normal [facility] Basic metabolic 1998 panelon 08-07-2023 Anion gap [Moles/Vol] 5 mmol/L 3 - 13 mmol/L [facility] Calcium [Mass/Vol] 8.2 mg/dL Low 8.4 - 10. 4 mg/dL [facility] Chloride [Moles/Vol] 113 mmol/L High 98 - 10 7 mmol/L [facility] CO2 [Moles/Vol] 21 mmol/L Low 22 - 30 mmol/L [facility] Creatinine [Mass/Vol] 0.38 mg/dL Low 0.52 - 1.04 mg/dL [facility] GFR/1.73 sq M.predicted MDRD (S/P/Bld) [Vol rate/Area] - PINF [facility] Comment on above: Calculation based on the Chronic Kidney Disease Epidemiology Collaboration (CKD-EPI) equation refit without adjustment for race Glucose [Mass/Vol] 72 mg/dL 70 - 100 mg/dL [facility] Interpretation and review of laboratory results Abnormal [facility] Potassium [Moles/Vol] 3.5 mmol/L 3.5 - 5.1 mmol/L [facility] Sodium [Moles/Vol] 139 mmol/L 135 - 145 mmol/L [facility] Urea nitrogen [Mass/Vol] 8 mg/dL 7 - 17 mg/dL [facility] CBC (HEMOGRAM)on 08-07-2023 Erythrocyte distribution width (RBC) [Ratio] 12.3 % Normal 11.5-15.0 [facility] Comment on above: Performed By: #### L [id number] ####Director Of User Experience: WALESKA GUNTER ([id number])[facility])[address] [place] [address] Hematocrit (Bld) [Volume fraction] 33.6 % Low 35.0-47.0 [facility] Comment on above: Performed By: #### L [id number] ####Director Of User Experience: WALESKA GUNTER ([id number])[address] Hemoglobin (Bld) [Mass/Vol] 11.2 g/dL Low 11.7-16.0 [facility] Comment on above: Performed By: #### L [id number] ####Director Of User Experience: WALESKA GUNTER ([id number])[facility])[address] [place] [address] MCH (RBC) [Entitic mass] 30.0 pg Normal 26.0-34.0 [facility] Comment on above: Performed By: #### L [id number] ####Director Of User Experience: WALESKA GUNTER ([id number])[facility])[address] [place] [address] MCHC 33.3 % Normal 30.5-36.0 [facility] Comment on above: Performed By: #### L [id number] ####Director Of User Experience: WALESKA GUNTER ([id number])[facility])[address] [place] [address] MCV (RBC) [Entitic vol] 90.1 fL Normal 77.0-99.0 [facility] Comment on above: Performed By: #### L [id number] ####Director Of User Experience: WALESKA GUNTER ([id number])[facility])[address] [place] [address] Platelet mean volume (Bld) [Entitic vol] 10.3 fL Normal 9.0-12.7 [facility] Comment on above: Performed By: #### L [id number] ####Director Of User Experience: WALESKA GUNTER ([id number])[facility] ([facility])[address] [place] [address] Platelets (Bld) [#/Vol] 225 10*3/uL Normal 140-440 [facility] Comment on above: Performed By: #### L [id number] ####Director Of User Experience: WALESKA GUNTER ([id number])[facility] ([facility])[address] [place] [address] RBC (Bld) [#/Vol] 3.73 10*6/uL Low 3.80-5.20 [facility] Comment on above: Performed By: #### L [id number] ####Director Of User Experience: WALESKA GUNTER ([id number])[facility] ([facility])[address] [place] [address] WBC (Bld) [#/Vol] 5.0 10*3/uL Normal 3.6-10.7 [facility] Comment on above: Performed By: #### L [id number] ####Director Of User Experience: WALESKA GUNTER ([id number])[facility])[address] [place] [address] CBC panel Auto (Bld)on 08-06 Erythrocyte distribution width (RBC) [Ratio] 12.3 % 11.5 - 15.0 % [facility] Hematocrit (Bld) [Volume fraction] 33.6 % Low 35.0 - 47.0 % [facility] Hemoglobin (Bld) [Mass/Vol] 11.2 g/dL Low 11.7 - 16.0 g/dL [facility] Interpretation and review of laboratory results Abnormal [facility] MCH (RBC) [Entitic mass] 30.0 pg 26.0 - 34.0 pg [facility] MCHC (RBC) [Mass/Vol] 33.3 % 30.5 - 36.0 % [facility] MCV (RBC) [Entitic vol] 90.1 fL 77.0 - 99.0 fL [facility] [employer] Platelet mean volume (Bld) [Entitic vol] 10.3 fL 9.0 - 12.7 fL [facility] [employer] Platelets (Bld) [#/Vol] 225 10*3/uL 140 - 440 10*3/uL [facility] [employer] RBC (Bld) [#/Vol] 3.73 10*6/uL Low 3.80 - 5.2 0 10*6/uL [facility] [employer] WBC (Bld) [#/Vol] 5.0 10*3/uL 3.6 - 10.7 10*3/uL [facility] [employer] [facility] Consulton 08-07-2023 Consult [facility] CONSULT Note Ayala Aranda AGE: 58 y.o. GENDER: female : 1965 Subjective: HISTORY of PRESENT ILLNESS HPI Ayala Aranda is a 58 y.o. female who presents for a wound consult. HPI: Ms. Aranda is a 58 y.o. female with significant past medical history of HTN, hypothyroid, GERD, DM2, hx uterine CA, who presented to the ED with seizure like activity. She was given Versed in route and Ativan in ED with cessation of symptoms. This has never happened to her prior. Abnormal CT findings. CT noting 1.5cm mean axial pancreatic head cystic structure that has increased in size from 2019 (1.1cm) as well as acute mesenteric panniculitis. Patient states that she has known of pancreatic cyst and it is monitored by her PCP Dr Harmon. Wound Care consulted for panniculitis. 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 COLONOSCOPY 04/2018 CYSTOSCOPY 03/17/2014 DR Luo. bilat urerteral stent placement. GASTRIC BYPASS 02/12/2018 LRYGB- Dr. Gomez [facility] HERNIA REPAIR 01/21/2019 Dr. Riley - [facility] General Surgery-retrorectus ventral repair w mesh. exp lap, BABATUNDE. HYSTERECTOMY 2008 low transverse INCISIONAL HERNIA REPAIR 02/03/2012 excision of syntheti mesh and use of Strattice with component separation. INCISIONAL HERNIA REPAIR 09/09/2011 [place] NECK SURGERY 2002 OTHER SURGICAL HISTORY 11/03/2019 panniculectomy with vac prevena placement UPPER GASTROINTESTINAL ENDOSCOPY 06/16/2017 PRE-OP [place]RICIA UPPER GASTROINTESTINAL ENDOSCOPY 04/06/2018 FAMILY HISTORY Family History Problem Relation Name Age of Onset Hypertension Brother Heart disease Mother Hyperlipidemia Mother COPD Mother Bleeding Prob Mother Diabetes Mother Heart disease Father Hypertension Paternal Grandmother Hypertension Mother Colon cancer Neg Hx Diabetes Paternal Grandfather Hypertension Paternal Grandfather SOCIAL HISTORY Social History Tobacco Use Smoking status: Never Smokeless tobacco: Never Substance Use Topics Alcohol use: No Alcohol/week: 0.0 standard drinks of alcohol Drug use: No ALLERGIES Allergies Allergen Reactions Diphenhydramine Morphine Tylenol [Acetaminophen] Other Per Vancomycin MEDICATIONS No current facility-administered medications on file prior to encounter. Current Outpatient Medications on File Prior to Encounter Medication Sig Dispense Refill aspirin 81 MG EC tablet Take 1 tablet (81 mg) by mouth daily. 30 tablet 11 Biotin 5 MG tablet dispersible Take 5,000 mcg by mouth in the morning. cholecalciferol (Vitamin D-3) 50 MCG (2000 UT) capsule Take 2,000 Units by mouth in the morning. cyanocobalamin (Vitamin B-12) 1000 MCG tablet Take 1,000 mcg by mouth in the morning. Docusate Sodium (DSS) 100 MG capsule Take 100 mg by mouth daily. ferrous sulfate 325 (65 Fe) MG tablet Take 325 mg by mouth daily (with breakfast). levothyroxine (Tirosint) 100 MCG capsule Take 100 mcg by mouth every morning (before breakfast). losartan (Cozaar) 50 MG tablet Take 1 tablet (50 mg) by mouth daily. Do not start before May 20, 2023. 30 tablet 11 rosuvastatin (Crestor) 20 MG tablet Take 20 mg by mouth daily. sertraline (Zoloft) 100 MG tablet Take 100 mg by mouth daily. REVIEW OF SYSTEMS Pertinent items are noted in HPI. Objective: BP 124/61 (BP Location: Right arm, Patient Position: Sitting) Pulse (!) 49 Temp 36.6 ?C (97.9 ?F) (Temporal) Resp 18 Ht 1.575 m (5' 2) Wt 74.9 kg (165 lb 0.3 oz) SpO2 93% BMI 30.18 kg/m? PHYSICAL EXAM General appearance: in no apparent distress, well developed and well nourished, alert, oriented times 3, and cooperative Skin: warm and dry Pulmonary: Normal effort, no respiratory distress, no cyanosis Abdomen: soft, nontender, and nondistended, no erythema present, no wounds present, no drainage present. LABS CBC: Lab Results Component Value Date WBC 5.0 08/07/2023 HGB 11.2 (L) 08/07/2023 HCT 33.6 (L) 08/07/2023 MCV 90.1 08/07/2023 PLT 225 08/07/2023 BMP: Lab Results Compone (more content not included)... Normal [facility] GASTROINTESTINAL PCR PANELon 08-07-2023 GASTROINTESTINAL PCR PANEL CAMPYLOBACTER Reference Not Detected Not Detected PLESIOMONAS SHIGELLOIDES Reference Not Detected Not Detected SALMONELLA Reference Not Detected Not Detected VIBRIO SPECIES Reference Not Detected Not Detected VIBRIO CHOLERAE Reference Not Detected Not Detected YERSINIA ENTEROCOLITICA Reference Not Detected Not Detected ENTEROTOXIGENIC E COLI (ETEC) Reference Not Detected Not Detected SHIGA TOXIN-PRODUCING E COLI (STEC) Reference Not Detected Not Detected SHIGELLA/ENTEROINVASIVE E COLI (EIEC) Reference Not Detected Not Detected CRYPTOSPORIDIUM Reference Not Detected Not Detected CYCLOSPORA CAYETANENSIS Reference Not Detected Not Detected ENTAMOEBA HISTOLYTICA Reference Not Detected Not Detected GIARDIA LAMBLIA Reference Not Detected Not Detected ADENOVIRUS F 40/41 Reference Not Detected Not Detected ASTROVIRUS Reference Not Detected Not Detected NOROVIRUS GI/GII Reference Not Detected Not Detected ROTAVIRUS A Reference Not Detected Not Detected SAPOVIRUS Reference Not Detected Not Detected ORDER COMMENTS: A positive Norovirus result on the Film Array GI panel should be interpreted in the context of the patient's history and clinical picture. If results are not consistent, result should be confirmed with a Norovirus specific assay. Methodology: Multiplex PCR [facility] Comment on above: Performed By: #### L [id number] #### Director Of User Experience: WALESKA GUNTER ([id number]) [facility] ([facility]) [address] [place] [address] Gastrointestinal pathogens p eda ANGELA+probe (Stl)Ordered By: Sofya Manuel on 08-07-2023 Adenovirus F 40/41 Not detected Not Detected [facility] Astrovirus Not detected Not Detected [facility] Campylobacter Not detected Not Detected [facility] Cryptosporidium Not detected Not Detected [facility] Cyclospora cayetanensis Not detected Not Detected [facility] Entamoeba histolytica Not detected Not Detected [facility] Enterotoxigenic E coli (ETEC) Not detected Not Detected [facility] Giardia lamblia Not detected Not Detected [facility] Interpretation and review of laboratory results Normal [facility] Norovirus GI/GII Not detected Not Detected [facility] Plesiomonas shigelloides Not detected Not Detected [facility] Rotavirus A Not detected Not Detected [facility] Salmonella Not detected Not Detected [facility] Sapovirus Not detected Not Detected [facility] Shiga toxin-producing E coli (STEC) Not detected Not Detected [facility] Shigella/Enteroinvasive E coli (EIEC) Not detected Not Detected [facility] Vibrio cholerae Not detected Not Detected [facility] Vibrio species Not detected Not Detected [facility] Yersinia enterocolitica Not detected Not Detected [facility] A positive Norovirus result on the Film Array GI panel should be interpreted in the context of the patient's history and clinical picture. If results are not consistent, result should be confirmed with a Norovirus specific assay. Methodology: Multiplex PCR [facility] IDNon 08-07-2023 IDN Problem: Pain - Adul t Goal: Verbalizes/displays adequate comfort level or baseline comfort level Outcome: Progressing Problem: Safety - Adult Goal: Free from fall injury Outcome: Progressing Problem: Discharge Planning Goal: Discharge to home or other facility with appropriate resources Outcome: Progressing Problem: Chronic Conditions and Co-morbidities Goal: Patient's chronic conditions and co-morbidity symptoms are monitored and maintained or improved Outcome: Progressing Problem: Knowledge Deficit Goal: Patient/family/caregive r demonstrates understanding of disease process, treatment plan, medications, and discharge instructions Outcome: Progressing Problem: Potential for Compromised Skin Integrity Goal: Skin Integrity is Maintained or Improved Outcome: Progressing Goal: Nutritional status is improving Outcome: Progressing Problem: Urinary Incontinence Goal: Perineal skin integrity is maintained or improved Outcome: Progressing Normal [facility] Laboratory - Chemistry and C hemistry - challengeon 08-07-2023 Magnesium [Mass/Vol] 1.8 mg/dL 1.6 - 2 .3 mg/dL [facility] Laboratory - Microbiology an d Antimicrobial susceptibilityOrdered By: Ayesha Benito on 08-07-2023 Bacteria identified Cx Nom (U) Normal urogenital valeria present [facility] MAGNESIUMon 08-07-2023 Magnesium [Mass/Vol] 1.8 mg/dL Normal 1.6-2.3 [facility] Comment on above: Performed By: #### L [id number], LAB15 ####Director Of User Experience: WALESKA GUNTER ([id number])[facility] ([address] Magnesium [Mass/Vol]on 08-06 Interpretation and review of laboratory results Normal [facility] Progress Noteon 08-07-2023 Progress Note Patient is scheduled with outpatient neurology on 09/10 at 10:30 AM. Appointment information is located in the patient's discharge instructions. Normal [facility] Progress Note Nutrition rescreen completed. Patient is NPO/Clear liquid >3 days. Refer to Dietitian. Normal [facility] 36on 08-06-2023 36 Please schedule outpatient follow up with patient for hospital follow up. She has known hx of pancreatic cyst and mesenteric panniculitis. Normal [facility] CBC W Auto Differential pane l (Bld)Ordered By: Ramu Horton on 08-06-2023 Basophils (Bld) [#/Vol] 0.0 10*3/uL 0.0 - 0.2 10*3/uL [facility] Basophils/100 WBC (Bld) 0.5 % 0.0 - 2.0 % [facility] Eosinophils (Bld) [#/Vol] 0.1 10*3/uL 0.0 - 0.5 10*3/uL [facility] Eosinophils/100 WBC (Bld) 1.7 % 0.0 - 6.0 % [facility] Erythrocyte distribution width (RBC) [Ratio] 12.3 % 11.5 - 15.0 % [facility] Hematocrit (Bld) [Volume fraction] 32.3 % Low 35.0 - 47.0 % [facility] Hemoglobin (Bld) [Mass/Vol] 10.7 g/dL Low 11.7 - 16.0 g/dL [facility] Immature granulocytes (Bld) [#/Vol] 0.0 10*3/uL NINF - 0.1 10*3/uL [facility] Immature granulocytes/100 WBC (Bld) 0.3 % 0.0 - 2.0 % [facility] Interpretation and review of laboratory results Abnormal [facility] Lymphocytes (Bld) [#/Vol] 2.5 10*3/uL 1.0 - 4.3 10*3/uL [facility] Lymphocytes/100 WBC (Bld) 38.8 % 15.0 - 45.0 % [facility] MCH (RBC) [Entitic mass] 30.0 pg 26.0 - 34.0 pg [facility] MCHC (RBC) [Mass/Vol] 33.1 % 30.5 - 36.0 % [facility] MCV (RBC) [Entitic vol] 90.5 fL 77.0 - 99.0 fL [facility] Monocytes (Bld) [#/Vol] 0.4 10*3/uL 0.0 - 0.9 10*3/uL [facility] Monocytes/100 WBC (Bld) 6.8 % 5.0 - 13.0 % [facility] Neutrophils (Bld) [#/Vol] 3.4 10*3/uL 1.8 - 7.5 10*3/uL [facility] Neutrophils/100 WBC (Bld) 51.9 % 38.0 - 82.0 % [facility] Nucleated RBC/100 WBC (Bld) [Ratio] 0.0 % [facility] Platelet mean volume (Bld) [Entitic vol] 10.2 fL 9.0 - 12.7 fL [facility] Platelets (Bld) [#/Vol] 240 10*3/uL 140 - 440 10*3/uL [facility] RBC (Bld) [#/Vol] 3.57 10*6/uL Low 3.80 - 5.2 0 10*6/uL [facility] WBC (Bld) [#/Vol] 6.5 10*3/uL 3.6 - 10.7 10*3/uL [facility] CBC WITH AUTO DIFFERENTIALon 08-06-2023 Basophils (Bld) [#/Vol] 0.0 10*3/uL Normal 0.0-0.2 [facility] Comment on above: Performed By: #### L [id number] ####Director Of User Experience: WALESKA GUNTER ([id number])[facility])[address] [place] [address] Basophils/100 WBC (Bld) 0.5 % Normal 0.0-2.0 [facility] Comment on above: Performed By: #### L [id number] ####Director Of User Experience: WALESKA GUNTER ([id number])[facility])[address] [place] [address] Eosinophils (Bld) [#/Vol] 0.1 10*3/uL Normal 0.0-0.5 [facility] Comment on above: Performed By: #### L [id number] ####Director Of User Experience: WALESKA GUNTER ([id number])[facility])[address] [place] [address] Eosinophils/100 WBC (Bld) 1.7 % Normal 0.0-6.0 [facility] Comment on above: Performed By: #### L [id number] ####Director Of User Experience: WALESKA GUNTER ([id number])[facility])[address] [place] [address] Erythrocyte distribution width (RBC) [Ratio] 12.3 % Normal 11.5-15.0 [facility] Comment on above: Performed By: #### L [id number] ####Director Of User Experience: WALESKA GUNTER ([id number])[facility])[address] [place] [address] Hematocrit (Bld) [Volume fraction] 32.3 % Low 35.0-47.0 [facility] Comment on above: Performed By: #### L [id number] ####Director Of User Experience: WALESKA GUNTER ([id number])[facility])[address] [place] [address] Hemoglobin (Bld) [Mass/Vol] 10.7 g/dL Low 11.7-16.0 [facility] Comment on above: Performed By: #### L [id number] ####Director Of User Experience: WALESKA GUNTER ([id number])[facility])[address] [place] [address] IMMATURE GRANS % 0.3 % Normal 0.0-2.0 [facility] Comment on above: Performed By: #### L [id number] ####Director Of User Experience: WALESKA GUNTER ([id number])[facility])[address] [place] [address] IMMATURE GRANS ABSOLUTE 0.0 10*3/uL Normal <0.1 [facility] Comment on above: Performed By: #### L [id number] ####Director Of User Experience: WALESKA GUNTER ([id number])[address] Lymphocytes (Bld) [#/Vol] 2.5 10*3/uL Normal 1.0-4.3 [facility] Comment on above: Performed By: #### L [id number] ####Director Of User Experience: WALESKA GUNTER ([id number])[facility])[address] [place] [address] Lymphocytes/100 WBC (Bld) 38.8 % Normal 15.0-45.0 [facility] Comment on above: Performed By: #### L [id number] ####Director Of User Experience: WALESKA GUNTER ([id number])[facility])[address] [place] [address] MCH (RBC) [Entitic mass] 30.0 pg Normal 26.0-34.0 [facility] Comment on above: Performed By: #### L [id number] ####Director Of User Experience: WALESKA GUNTER ([id number])[address] MCHC 33.1 % Normal 30.5-36.0 [facility] Comment on above: Performed By: #### L [id number] ####Director Of User Experience: WALESKA GUNTER ([id number])[facility] ([facility])[address] [place] [address] MCV (RBC) [Entitic vol] 90.5 fL Normal 77.0-99.0 [facility] Comment on above: Performed By: #### L [id number] ####Director Of User Experience: WALESKA GUNTER ([id number])[facility] ([facility])[address] [place] [address] Monocytes (Bld) [#/Vol] 0.4 10*3/uL Normal 0.0-0.9 [facility] Comment on above: Performed By: #### L [id number] ####Director Of User Experience: WALESKA GUNTER ([id number])[facility] [facility] [place] [address] Monocytes/100 WBC (Bld) 6.8 % Normal 5.0-13.0 [facility] Comment on above: Performed By: #### L [id number] ####Director Of User Experience: WALESKA GUNTER ([id number])[facility] ([facility])[address] [place] [address] NEUTROPHILS ABSOLUTE 3.4 10*3/uL Normal 1.8-7.5 [facility] Comment on above: Performed By: #### L [id number] ####Director Of User Experience: WALESKA GUNTER ([id number])[facility] ([facility])[address] [place] [address] Neutrophils/100 WBC (Bld) 51.9 % Normal 38.0-82.0 [facility] Comment on above: Performed By: #### L [id number] ####Director Of User Experience: WALESKA GUNTER ([id number])[facility] ([facility])[address] [place] [address] NRBC 0.0 /100 WBCs Normal 0.0-2.0 [facility] Comment on above: Performed By: #### L [id number] ####Director Of User Experience: WALESKA GUNTER ([id number])[facility] ([facility])[address] [place] [address] Platelet mean volume (Bld) [Entitic vol] 10.2 fL Normal 9.0-12.7 [facility] Comment on above: Performed By: #### L [id number] ####Director Of User Experience: WALESKA GUNTER ([id number])[facility])[address] [place] [address] Platelets (Bld) [#/Vol] 240 10*3/uL Normal 140-440 [facility] Comment on above: Performed By: #### L [id number] ####Director Of User Experience: WALESKA GUNTER ([id number])[facility] ([facility])[address] [place] [address] RBC (Bld) [#/Vol] 3.57 10*6/uL Low 3.80-5.20 [facility] Comment on above: Performed By: #### L [id number] ####Director Of User Experience: WALESKA GUNTER ([id number])[facility])[address] [place] [address] WBC (Bld) [#/Vol] 6.5 10*3/uL Normal 3.6-10.7 [facility] Comment on above: Performed By: #### L [id number] ####Director Of User Experience: WALESKA GUNTER ([id number])[facility])[address] [place] [address] COMPREHENSIVE METABOLIC PANE Juan 08-06-2023 Albumin [Mass/Vol] 3.1 g/dL Low 3.5-5.0 [facility] Comment on above: Performed By: #### L AB103, LAB67, [id number], LAB17 ####Director Of User Experience: WALESKA GUNTER ([id number])[facility] ([facility])[address] [place] [address] ALP [Catalytic activity/Vol] 88 U/L Normal 38-126 [facility] Comment on above: Performed By: #### L AB103, LAB67, [id number], LAB17 ####Director Of User Experience: WALESKA GUNTER ([id number])[facility])[address] [place] [address] [place] ALT [Catalytic activity/Vol] 27 U/L Normal 0-34 [facility] Comment on above: Performed By: #### L AB103, LAB67, [id number], LAB17 ####Director Of User Experience: WALESKA GUNTER ([id number])[facility] ([facility])[address] [place] [address] Anion gap [Moles/Vol] 5 mmol/L Normal 3-13 [facility] Comment on above: Performed By: #### L AB103, LAB67, [id number], LAB17 ####Director Of User Experience: WALESKA GUNTER ([id number])[facility] ([facility])[address] [place] [address] AST [Catalytic activity/Vol] 32 U/L Normal 15-46 [facility] Comment on above: Performed By: #### L AB103, LAB67, [id number], LAB17 ####Director Of User Experience: WALESKA GUNTER ([id number])[facility] ([facility])[address] [place] [address] Bilirubin [Mass/Vol] 0.4 mg/dL Normal 0.2-1.3 [facility] Comment on above: Performed By: #### L AB103, LAB67, ZXT589, LAB17 ####Director Of User Experience: WALESKA GUNTER ([id number])[facility] ([facility])[address] [place] [address] Calcium [Mass/Vol] 8.1 mg/dL Low 8.4-10.4 [facility] Comment on above: Performed By: #### L AB103, LAB67, [id number], LAB17 ####Director Of User Experience: WALESKA GUNTER ([id number])[facility] ([facility])[address] [place] [address] [place] Chloride [Moles/Vol] 112 mmol/L High 98-107 [facility] Comment on above: Performed By: #### L AB103, LAB67, OBK792, LAB17 ####Director Of User Experience: WALESKA GUNTER ([id number])[facility] ([facility])[address] [place] [address] [place] CO2 [Moles/Vol] 21 mmol/L Low 22-30 [facility] Comment on above: Performed By: #### L AB103, LAB67, TPK574, LAB17 ####Director Of User Experience: WALESKA GUNTER ([id number])[facility] ([facility])[address] [place] [address] Creatinine [Mass/Vol] 0.37 mg/dL Low 0.52-1.04 [facility] Comment on above: Performed By: #### L AB103, LAB67, OZS678, LAB17 ####Director Of User Experience: WALESKA GUNTER ([id number])[facility])[address] [place] [address] GLOMERULAR FILTRATION RATE ML/MIN/1.73 SQ M.PREDICTED >90.0 Normal >60.0 [facility] Comment on above: Result Comment: Calc ulation based on the Chronic Kidney Disease Epidemiology Collaboration (CKD-EPI) equation refit without adjustment for race Performed By: #### Sudheer AB103, LAB67, CYK950, LAB17 ####Director Of User Experience: WALESKA GUNTER ([id number])[facility] ([facility])[address] [place] [address] Glucose [Mass/Vol] 90 mg/dL Normal 70-100 [facility] Comment on above: Performed By: #### L AB103, LAB67, IUY426, LAB17 ####Director Of User Experience: WALESKA GUNTER ([id number])[facility])[address] [place] [address] Potassium [Moles/Vol] 3.5 mmol/L Normal 3.5-5.1 [facility] Comment on above: Performed By: #### L AB103, LAB67, IWS139, LAB17 ####Director Of User Experience: WALESKA GUNTER ([id number])[facility])[address] [place] [address] Protein [Mass/Vol] 5.6 g/dL Low 6.3-8.2 [facility] Comment on above: Performed By: #### L AB103, LAB67, SKC909, LAB17 ####Director Of User Experience: WALESKA GUNTER ([id number])[facility] ([facility])[address] [place] [address] Sodium [Moles/Vol] 138 mmol/L Normal 135-145 [facility] Comment on above: Performed By: #### L AB103, LAB67, ZBE682, LAB17 ####Director Of User Experience: WALESKA GUNTER ([id number])[facility] ([facility])[address] [place] [address] Urea nitrogen [Mass/Vol] 10 mg/dL Normal 7-17 [facility] Comment on above: Performed By: #### L AB103, LAB67, LCN008, LAB17 ####Director Of User Experience: WALESKA GUNTER ([id number])[facility] ([facility])[address] [place] [address] Cobalamin (Vitamin B12) [Mas s/Vol]on 08-06-2023 Interpretation and review of laboratory results Normal [facility] Comprehensive metabolic 1998 panelon 08-06-2023 Albumin [Mass/Vol] 3.1 g/dL Low 3.5 - 5.0 g/dL [facility] ALP [Catalytic activity/Vol] 88 U/L 38 - 126 U/L [facility] ALT [Catalytic activity/Vol] 27 U/L 0 - 34 U/L [facility] Anion gap [Moles/Vol] 5 mmol/L 3 - 13 mmol/L [facility] AST [Catalytic activity/Vol] 32 U/L 15 - 46 U/L [facility] Bilirubin [Mass/Vol] 0.4 mg/dL 0.2 - 1 .3 mg/dL [facility] Calcium [Mass/Vol] 8.1 mg/dL Low 8.4 - 10. 4 mg/dL [facility] Chloride [Moles/Vol] 112 mmol/L High 98 - 10 7 mmol/L [facility] CO2 [Moles/Vol] 21 mmol/L Low 22 - 30 mmol/L [facility] Creatinine [Mass/Vol] 0.37 mg/dL Low 0.52 - 1.04 mg/dL [facility] GFR/1.73 sq M.predicted MDRD (S/P/Bld) [Vol rate/Area] - PINF [facility] Comment on above: Calculation based on the Chronic Kidney Disease Epidemiology Collaboration (CKD-EPI) equation refit without adjustment for race Glucose [Mass/Vol] 90 mg/dL 70 - 100 mg/dL [facility] Interpretation and review of laboratory results Abnormal [facility] Potassium [Moles/Vol] 3.5 mmol/L 3.5 - 5.1 mmol/L [facility] Protein [Mass/Vol] 5.6 g/dL Low 6.3 - 8.2 g/dL [facility] Sodium [Moles/Vol] 138 mmol/L 135 - 145 mmol/L [facility] Urea nitrogen [Mass/Vol] 10 mg/dL 7 - 17 mg/dL [facility] Consulton 08-06-2023 Consult Department of Psychiatry Consult Service Attending Consult Note Reason for Consult: Concern for pseudo-seizures and malingering Requesting Physician: Russell CHIEF COMPLAINT: Chief Complaint Patient presents with Seizures Per [facility] pt called 911 because she was not feeling well, witnessed seizure per EMS. Pt had tonic clonic like movements upon arrival. Pt became immediately alert and oriented after receiving IV ativan, no post ictal period noted. Pt has hx of DM, no seizure hx. EMS glucose was 205. History obtained from: patient and past medical records HISTORY OF PRESENT ILLNESS: The patient is a 58 y.o.female with significant past medical history of thao en y gastric bypass, GERD, chronic pain, hypothyroidism, and anxiety who arrived by ambulance after experiencing seizure-like activity at home. Pt was subsequently admitted for seizure workup and psychiatry was consulted. Pt is a&ox3, awake and cooperative. Reports feeling abnormally tired recently. Notes yesterday she felt tired and didn't eat much aside from a cheeseburger for lunch. She was laying in bed at home and felt shaky, starting in her b/l arms and then spreading through her body. No loss of consciousness noted. Pt states she couldn't talk but was aware of the episode. Denies tongue bitting or incontinence. Denies any postictal symptoms. Has had two similar but brief episodes since admission. No other seizure hx known for the patient or her family. Denies recent med changes outside of starting Ambien ~2 weeks ago. Endorses compliance with her home medications and vitamin regimen. Notes some increased stress lately as one of her sons is disabled from a stroke and in a senior living for total care, while her other son has been having issues with alcoholism and lives at home with her. Started psychotropics through her PCP about a month or two ago (sertraline + unknown sleep med, later Ambien). Feels the regimen has been somewhat helpful. Collateral was obtained from the following individual: chart review REVIEW OF SYSTEMS: Medical Review Of Systems: A comprehensive review of systems was negative except for: Constitutional: positive for fatigue Cardiovascular: positive for bradycardia Gastrointestinal: positive for low appetite3 Neurological: positive for Symptoms; Neuro: tremors Behavioral/Psych: positive for Symptoms; Pyschiatric: anxiety and sleep disturbance Psychiatric Review Of Systems: Depressed mood: a little Sleep changes: problems falling asleep Appetite changes: decreased Weight changes: unknown Energy changes: low Loss of interest/anhedonia:Monico es Somatic symptoms: see HPI Libido changes: Anxiety/panic: y Guilty/hopeless:Denies Self-injurious/risky behavior:Denies Suicidal ideation:Denies Homicidal ideation:Denies Access to weapons:Denies Lifetime Psychiatric Review Of Systems: Ofelia or hypomania:Denies Panic attacks: rare Phobias:Denies PTSD:Denies Obsessions/compulsions: Denies Hallucinations:Denies Delusions:Denies PAST PSYCHIATRIC HISTORY: The patient is currently receiving care for the above psychiatric illness with her PCP. 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 COLONOSCOPY 04/2018 CYSTOSCOPY 03/17/2014 DR Luo. bilat urerteral stent placement. GASTRIC BYPASS 02/12/2018 LRYGB- Dr. Gomez [facility] HERNIA REPAIR 01/21/2019 Dr. Riley - [facility] General Surgery-retrorectus ventral repair w mesh. exp lap, BABATUNDE. HYSTERECTOMY 2008 low transverse INCISIONAL HERNIA REPAIR 02/03/2012 excision of syntheti mesh and use of Strattice with component separation. INCISIONAL HERNIA REPAIR 09/09/2011 [place] NECK SURGERY 2002 OTHER SURGICAL HISTORY 11/03/2019 panniculectomy with vac prevena (more content not included)... Normal [facility] Consult --- Attestation signed by Cm May MD at 08/07/2023 2:38 PM Attestation Note: I have personally performed a face to face diagnostic evaluation on this patient. Labs, maging studies and electronic medical record have been reviewed by me. This note documented by the resident physician reflects my history, exam and medical decision making as discussed with the resident physician. I have reviewed and agree with the care plan. Changes were made in the orders as necessary My history, exam, assessment and plan are as follows. Comments by the neurology attending: Patient is being seen by me for evaluation of experiencing generalized shaking activity that was suspected of seizure event. The above episode lasted for a few minutes and was witnessed by the EMS services who treated her with 10 mg of intranasal Versed which, resolved her symptoms. The patient had a similar episode while at the [facility] ER which was treated by 4 mg of IV Ativan and 4 g of IV Keppra which reported her symptoms. Today, the patient is symptom-free. Patient's EEG is normal. Patient's MRI study of the brain shows bihemispheric small vessel disease in the form of bihemispheric white matter disease most prominently noted on T2 and FLAIR imaging sequences. The patient has a nonfocal and normal neurological exam. In addition, she has a normal mental status exam along with normal speech and good fund of knowledge as well as appropriate attention span. The patient is currently taking Keppra 500 mg twice daily as maintenance dose. For detailed H&P, please review resident physician's note. Clinical impression: Seizure-like activity, raising strong suspicion for idiopathic seizures. Based on history of multiple medical and psychiatric problems for which she is being treated through outpatient medical services appropriately. Currently symptom-free. Recommendations: Continue current Keppra 500 mg twice daily treatment indefinitely. Outpatient neurology follow-up, 4 to 6 weeks postdischarge for further evaluation and recommendations. Please implement seizure precautions. Please continue with supportive care. Seizure counseling: No driving until seizure free x 6 months. No working on heights x 6 months. No swimming or bathing x 6 months. No sharp object use x 6 months. The patient was counseled to inform the [facility] about the seizure event and surrender license per their discretion - until seizure free x 6 months. Please practice common sense measures to avoid bodily harm and injury. SUDEP related issues were also discussed with the patient and, the patient verbalized understanding. Patient was counseled to not consume alcohol, drugs and should not be smoking. The patient was counseled for adequate dietary intake and, adequate sleep hours. All of the above counseling issues were discussed with the patient in detail and all of the questions and concerns were addressed to her expressed understanding. Disposition: Neurology service is signing off. Please recall us if/as needed. Further recommendations including discharge instructions, per primary and the other care providing teams. Attestation: I spent 80 minutes in providing care to this patient. I discussed the above assessment and plan with the patient in detail and, addressed her questions and concerns to her expressed understanding and satisfaction. I also discussed the above assessment and plan with the patient's primary team's attending. In addition, I explained to the patient side effects of the medication and, issues related to medication compliance. The patient verbalized understanding. Thank you. Neurology Consult Note - Neurology Service Patient Name: Ayala Aranda Patient : 1965 Acct: [id number] Date of Admission: 08/05/2023 Room/Bed: [id number] A PCP: Emma Harmon DO 08/06/2023 Reason for Consult: Seizure like activity History of Presenting Illness: The patient is 58 y.o. -- who is being seen as a new consult for Seizure like activity. Upon speaking to the patient this morning, she states that at around 4:30 PM yesterday she was feeling generally unwell and when she was standing up to walk she started having generalized shaking that was very mild in nature so she felt her blood sugar may have been low so she proceeded to eat a peanut butter jelly sandwich. She proceeded to sit down on the couch and called her son. When her son got there she stated that she was having generalized shaking of her entire body and her eyes were closed but she could hear everything but she could not respond to anything this episode lasted about 10 minutes and stop after she received a medication through the nose by EMS however when she got to the emergency departme (more content not included)... [facility] Consult Department of [employer] [facility] Medicine Gastroenterology Attending Consult Note Reason for Consult: The patient was seen in consultation at the request of Yany Kang MD re: abnormal ct abdomen pancreatic ?lesion panniculitis. CHIEF COMPLAINT: seizure like activity, abdominal pain History Obtained From: patient, EMR HISTORY OF PRESENT ILLNESS: The patient is a 58 y.o. female with significant past medical history of HTN, hypothyroid, GERD, DM2, hx uterine CA, who presented to the ED with seizure like activity. She was given Versed in route and Ativan in ED with cessation of symptoms. This has never happened to her prior. GI subsequently consulted for abnormal CT findings. CT noting 1.5cm mean axial pancreatic head cystic structure that has increased in size from 2019 (1.1cm) as well as acute mesenteric panniculitis. Patient states that she has known of pancreatic cyst and it is monitored by her PCP Dr Harmon. Today, patient c/o nausea. No emesis. States that she feels wore out. Endorses abdominal pain in periumbilical pain that started last night. Sharp in nature. Last BM last evening (08/04) that consisted of loose stools per patient. Prior BM to that was yesterday morning, small and brown, formed. Non bloody. States that she has poor appetite at baseline. Weight is stable. ETOH: no Tobacco: no Recreational drug use: no Anticoagulants: no Aspirin/NSAID use: daily ASA O2: no Last EGD: 2017, 2018 x2 Last Colonoscopy: 2018 no report and pt unsure of results Personal history of colon polyps: pt unsure Family history of colon cancer: no Prior abdominal surgeries: hernia repair, gastric bypass (2017), panniculectomy s/p 100 lb weight loss (2019), cholecystectomy, hysterectomy, c section, colectomy (2014) resection rectosigmoid, lower anterior anastamosis and for serosal tear repair in SB 2/ infection Allergies: Diphenhydramine, Morphine, Tylenol [acetaminophen], and Vancomycin Current Medications: Current Facility-Administered Medications: aspirin EC tablet 81 mg, 81 mg, Oral, Daily, Yany Kang MD, 81 mg at 08/05/232037 enoxaparin (Lovenox) syringe 40 mg, 40 mg, SubCUTAneous, Daily, Yany Kang MD, 40 mg at 08/05/232038 ferrous sulfate tablet 325 mg, 325 mg, Oral, Daily with breakfast, Yany Kang MD levETIRAcetam in sodium chloride (Keppra) IVPB 500 mg, 500 mg, IntraVENous, BID, Yany Kang MD levothyroxine (Synthroid, Levoxyl) tablet 100 mcg, 100 mcg, Oral, qAM AC, Yany Kang MD losartan (Cozaar) tablet 50 mg, 50 mg, Oral, Daily, Yany Kang MD, 50 mg at 08/05/232037 melatonin tablet 3 mg, 3 mg, Oral, Nightly PRN, Yany Kang MD ondansetron ODT (Zofran-ODT) disintegrating tablet 4 mg, 4 mg, Oral, q8h PRN OR ondansetron (Zofran) injection 4 mg, 4 mg, IntraVENous, q6h PRN, Yany Kang MD polyethylene glycol (PEG) 3350 (Miralax) packet 17 g, 17 g, Oral, Daily PRN, Yany Kang MD rosuvastatin (Crestor) tablet 20 mg, 20 mg, Oral, Daily, Yany Kang MD, 20 mg at 08/05/232037 sertraline (Zoloft) tablet 100 mg, 100 mg, Oral, Daily, Yany Kang MD, 100 mg at 08/05/232037 sodium chloride 0.9 % infusion, 100 mL/hr, IntraVENous, Continuous, Yany Kang MD, Last Rate: 100 mL/hr at 08/05/232031, 100 mL/hr at 08/05/232031 Past Medical History: Active Ambulatory Problems Diagnosis Date Noted Abdominal pannus 11/03/2019 Acute superficial gastritis without hemorrhage 06/16/2017 Chronic back pain 12/05/2014 Headache 12/05/2014 Gastroesophageal reflux disease without esophagitis 02/12/2018 Intestinal malabsorption 02/16/2018 Gastrojejunal anastomotic stricture 04/20/2018 Deficiency of multiple nutrient elements 02/16/2018 Oropharyngeal dysphagia 04/20/2018 Hepatic steatosis 02/12/2018 Morbid obesity (HCC) 02/14/2018 Abdominal pain 04/08/2017 Joint pain 04/08/2017 Essential hypertension 02/12/2018 Recurrent incisional hernia 02/12/2018 Hypothyroidism 03/16/2017 Fatigue 04/08/2017 Unresponsive episode 05/16/2023 Bradycardia 05/18/2023 Resolved Ambulatory Problems Diagnosis Date Noted No Resolved Ambulatory Problems Past Medical History: Diagnosis Date Anxiety Arthritis Cancer (CMS/HCC) (HCC) Cellulitis DDD (degenerative disc disease), cervical Depression Difficult intravenous access Diverticulitis Fibromyalgia GERD (gastroesophageal reflux disease) History of blood transfusion HTN (hypertension) Hyperlipidemia Nausea Type 2 diabetes mellitus without complication (CMS/HCC) (HCC) Past Surgical History: Past Surgical History: Procedure Laterality Date BACK SURGERY 2003 CHOLECYSTECTOMY 2003 COLECTOMY 03/14/2014 repair serosal tear small bowel, resection rectosigmoid, Low Anterior anastomosis. COLONOSCOPY 04/2018 CYSTOSCOPY 03/17/2014 DR Luo. bilat urerteral stent placement. GASTRIC BYPASS 02/12/2018 LRYGB- Dr. Gomez [facility] HERNIA REPAIR 01/21/2019 Dr. Riley - (more content not included)... Normal [facility] ESR (Bld) [Velocity]Ordered By: Camila Gregory on 08-06-2023 Interpretation and review of laboratory results Normal [facility] IDNon 08-06-2023 IDN Called by bedside RN to assess patient for seizure like activity in bilateral upper extremities. On arrival to room, patient asleep on side. Easily arousable to voice. Alert and oriented x4. Pupils equal and reactive. No seizure like activity noted. Patient verbalizes worsening tremors in extremities when she is anxious. Moves all extremities purposefully. Patient does c/o of headache, anxiety, and feeling run down who just wants to sleep. Has PRN motrin and melatonin for sleep. Bedside RN is going to administer PRN medication. Spoke with Dr. Wilkes regarding assessment. No further orders at this time. Instructed RN to call for any additional concerns. Normal [facility] IDN Problem: Pain - Adul t Goal: Verbalizes/displays adequate comfort level or baseline comfort level Outcome: Progressing Problem: Safety - Adult Goal: Free from fall injury Outcome: Progressing Problem: Discharge Planning Goal: Discharge to home or other facility with appropriate resources Outcome: Progressing Problem: Chronic Conditions and Co-morbidities Goal: Patient's chronic conditions and co-morbidity symptoms are monitored and maintained or improved Outcome: Progressing Normal [facility] IDN Called to see for questionable seizure activity. Pts upper extremities continuously shaking on arrival, per nursing this has been going on for 20 minutes with legs noted shaking at times. Pt alert answering questions. VSS, eyes open but then resist pupil check. Normal [facility] IDN Problem: Pain - Adul t Goal: Verbalizes/displays adequate comfort level or baseline comfort level Outcome: Progressing Problem: Safety - Adult Goal: Free from fall injury Outcome: Progressing Problem: Discharge Planning Goal: Discharge to home or other facility with appropriate resources Outcome: Progressing Problem: Chronic Conditions and Co-morbidities Goal: Patient's chronic conditions and co-morbidity symptoms are monitored and maintained or improved Outcome: Progressing The patient is Moderately Stable - Low risk of patient condition declining or worsening The patient's goals for the shift include Pt will get rest The clinical goals for the shift include Pt will remain safe while on the unit [facility] LACTIC ACID WITH REFLEXon Lactate [Moles/Vol] 0.9 mmol/L Normal 0.7-2.0 [facility] Comment on above: Performed By: #### L [id number] ####Director Of User Experience: WALESKA GUNTER ([id number])[facility] ([facility])[address] [place] [address] Laboratory - Chemistry and C hemistry - challengeon 08-06-2023 Cobalamin (Vitamin B12) [Mass/Vol] 459 pg/mL 239 - 931 pg/mL [facility] TSH Qn 3.775 m[IU]/L [facility] Magnesium [Mass/Vol] 1.9 mg/dL 1.6 - 2 .3 mg/dL [facility] Lactate [Moles/Vol] 0.9 mmol/L 0.7 - 2. 0 mmol/L [facility] Laboratory - Hematology and Cell countsOrdered By: Camila Gregory on 08-06-2023 ESR (Bld) [Velocity] 7 mm/h [facility] MAGNESIUMon 08-06-2023 Magnesium [Mass/Vol] 1.9 mg/dL Normal 1.6-2.3 [facility] Comment on above: Performed By: #### L AB103, LAB67, [id number], LAB17 ####Director Of User Experience: WALESKA GUNTER ([id number])[facility])[address] [place] [address] MR Brain WO contraston 08-05 No acute intracranial abnormality. T2/FLAIR supratentorial white matter signal changes are nonspecific but likely sequelae of microvascular ischemia. No evidence of a focal developmental or structure abnormality. No evidence of mesial temporal sclerosis. Correlate with EEG. Report Dictated on Electronically Signed By: Zeke Bailey MD Electronically Signed Date/Time: 08/06/2023 8:06 AM [facility] Patient Name: AYALA ARANDA : 1965 Exam Date/Time: 08/06/2023 03:46 Procedure: MR BRAIN WO CONTRAST Ordering Provider: KANG NIZAM Reason For Exam: Neuro deficit, acute, stroke suspected EXAMINATION: MR BRAIN WO CONTRAST HISTORY: Seizure-like activity. TECHNIQUE: Multiplanar, multisequence MRI of the brain was performed without contrast. Coronal thick slab T2 and FLAIR sequences were performed. Coronal high-resolution MPRAGE was performed. COMPARISON: Head CT 08/05/2023 RESULT: Computer age sequence is degraded by motion. Acute Change: There is no evidence of an acute intracranial process. Hemorrhage: No evidence of prior parenchymal hemorrhage on the gradient echo images. Mass Lesion/ Mass Effect: No evidence of an intracranial mass or extra-axial fluid collection. No significant mass effect. Chronic Change: Scattered patchy areas of increased T2 and FLAIR signal are present in the supratentorial white matter which is a nonspecific finding but likely represents mild chronic microvascular ischemia. Parenchyma: No significant volume loss for age. No evidence of focal developmental or structural abnormality. Hippocampal formations: Symmetric and normal in volume, morphology and signal intensity. Ventricles: Normal caliber and morphology. Skull Base: Hypothalamic and pituitary region are grossly normal. Craniocervical junction is normal. No significant marrow replacement process. Vasculature: Major intracranial arterial structures, and dural venous sinuses show typical flow void, suggesting patency by spin echo criteria. Other: Minimal mucosal thickening of the ethmoid air cells. Small left mastoid effusion. The remaining visualized paranasal sinuses and right mastoid air cells are clear. The orbits and extracranial soft tissues are unremarkable. [facility] Zeke Bailey MD - 08/06/2023 Patient Name: AYALA ARANDA : 1965 [facility]#: [id number] Exam Date/Time: 08/06/2023 03:46 Procedure: MR BRAIN WO CONTRAST Ordering Provider: KANG NIZAM Reason For Exam: Neuro deficit, acute, stroke suspected EXAMINATION: MR BRAIN WO CONTRAST HISTORY: Seizure-like activity. TECHNIQUE: Multiplanar, multisequence MRI of the brain was performed without contrast. Coronal thick slab T2 and FLAIR sequences were performed. Coronal high-resolution MPRAGE was performed. COMPARISON: Head CT 08/05/2023 RESULT: Computer age sequence is degraded by motion. Acute Change: There is no evidence of an acute intracranial process. Hemorrhage: No evidence of prior parenchymal hemorrhage on the gradient echo images. Mass Lesion/ Mass Effect: No evidence of an intracranial mass or extra-axial fluid collection. No significant mass effect. Chronic Change: Scattered patchy areas of increased T2 and FLAIR signal are present in the supratentorial white matter which is a nonspecific finding but likely represents mild chronic microvascular ischemia. Parenchyma: No significant volume loss for age. No evidence of focal developmental or structural abnormality. Hippocampal formations: Symmetric and normal in volume, morphology and signal intensity. Ventricles: Normal caliber and morphology. Skull Base: Hypothalamic and pituitary region are grossly normal. Craniocervical junction is normal. No significant marrow replacement process. Vasculature: Major intracranial arterial structures, and dural venous sinuses show typical flow void, suggesting patency by spin echo criteria. Other: Minimal mucosal thickening of the ethmoid air cells. Small left mastoid effusion. The remaining visualized paranasal sinuses and right mastoid air cells are clear. The orbits and extracranial soft tissues are unremarkable. IMPRESSION: No acute intracranial abnormality. T2/FLAIR supratentorial white matter signal changes are nonspecific but likely sequelae of microvascular ischemia. No evidence of a focal developmental or structure abnormality. No evidence of mesial temporal sclerosis. Correlate with EEG. Report Dictated on Electronically Signed By: Zeke Bailey MD Electronically Signed Date/Time: 08/06/2023 8:06 AM [facility] Radiology Study observation (narrative) [facility] MR Brain WO contrastOrdered By: Zeke Bailey on 08-06-2023 [facility] Work Phone: Magnesium [Mass/Vol]on 08-05 Interpretation and review of laboratory results Normal [facility] No Panel Informationon 08-05 James Butt DO 08/06/2023 1:31 PM [facility] [address] [place] [id number] ROUTINE EEG REPORT Patient Name: Ayala Aranda : 1965 Date of Study: 08/06/23 Duration Recorded: 23 minutes EEG#: [id number] SENIOR TECHNICAL WRITER: Sonia Woods PROVIDER REQUESTING STUDY: Yany Kang MD REASON FOR EXAM: Evaluate for seizures DIAGNOSIS TAG: Transient Neurologic Symptoms (TNS) HISTORY: Ayala Aranda is a 58 y.o. female came in with seizure like activity. She was given intranasal Versed by EMS. She was given 4mg of Ativan in the ED. Seizure like activity stopped. She had no post-ictal period. NIH 0. No focal neuro deficits. She denies h/o Seizure. She is also c/o diarrhea for few weeks now with intermittent abdominal pain. Denies alcohol abuse. MEDICATIONS: Current Facility-Administered Medications Medication Dose Route Frequency Provider Last Rate Last Admin aspirin EC tablet 81 mg 81 mg Oral Daily Yany Kang MD 81 mg at 08/05/232037 enoxaparin (Lovenox) syringe 40 mg 40 mg SubCUTAneous Daily Yany Kang MD 40 mg at 08/05/232038 ferrous sulfate tablet 325 mg 325 mg Oral Daily with breakfast Yany Kang MD levETIRAcetam in sodium chloride (Keppra) IVPB 500 mg 500 mg IntraVENous BID Yany Kang MD levothyroxine (Synthroid, Levoxyl) tablet 100 mcg 100 mcg Oral qAM AC Yany Kang MD 100 mcg at 08/06/23654 losartan (Cozaar) tablet 50 mg 50 mg Oral Daily Yany Kang MD 50 mg at 08/05/232037 melatonin tablet 3 mg 3 mg Oral Nightly PRN Yany Kang MD ondansetron ODT (Zofran-ODT) disintegrating tablet 4 mg 4 mg Oral q8h PRN Yany Kang MD Or ondansetron (Zofran) injection 4 mg 4 mg IntraVENous q6h PRN Nizadenisse Kang MD polyethylene glycol (PEG) 3350 (Miralax) packet 17 g 17 g Oral Daily PRN Yany Kang MD rosuvastatin (Crestor) tablet 20 mg 20 mg Oral Daily Yany Kang MD 20 mg at 08/05/232037 sertraline (Zoloft) tablet 100 mg 100 mg Oral Daily Yany Kang MD 100 mg at 08/05/232037 sodium chloride 0.9 % infusion 100 mL/hr IntraVENous Continuous Yany Kang MD 100 mL/hr at 08/05/232031 100 mL/hr at 08/05/232031 TECHNICAL ASPECTS: This routine scalp EEG study with video was carried out at [facility]. Scalp electrodes were positioned in person by an medical lab technologist, following patient education, according to the 10-20 International system of electrode placement and maintained for integrity and quality of the recording. EEG data was recorded continuously and digitally stored. The medical lab technologist reviewed all automated detections and manual events and prepared the data for archiving and provider review. Referential and bipolar montages were used for review. TECHNOLOGIST NOTES: No skull or scalp defects were observed. BACKGROUND ACTIVITY: Posterior background activity: A continuous organized and well-modulated 8-9 Hz, 20-40 uV rhythm was seen symmetrically over the posterior head regions bilaterally. Beta range: Fronto-centrally predominant beta range activity (15-25 Hz, 10-20 uV) was seen. Sleep: Stage N2 sleep was reached as evidenced by the appearance of vertex waves and sleep spindles seen symmetrically over the central head regions bilaterally. Normal Variants: No normal variants were identified. 08:46:25 -Continuous slowing, generalized (AP Bipolar) SLOWING: No abnormal slowing was seen. INTERICTAL EPILEPTIFORM ACTIVITY: No epileptiform activity was seen. ICTAL ACTIVITY: No ictal activity was seen. NON-EPILEPTIC EVENTS: None. ACTIVATION PROCEDURES: Photic stimulation was not performed. Hyperventilation was not performed. IMPRESSION AND ACTIONS TAKEN: This routine EEG with video is within normal limits for the awake and sleep states. No abnormal slowing, interictal epileptiform activity, nor seizures are observed. Dwayne Hawkins, PhD Clinical Neurophysiologist James Butt, DO [facility] Interpretation and review of laboratory results Normal [facility] Progress Noteon 08-06-2023 Progress Note Pt had seizure like activity. It began by right arm tremor/shakes, then increased to both arms. She was A&Ox4 the whole duration. She then began shaking her lower extremities. She was not able to grasp fingers and had weak push pulls during the episode. The episode happened for 35 minutes. A rapid was called, notified Normal [facility] SEDIMENTATION RATE, AUTOMATE Don 08-06-2023 SEDIMENTATION RATE, ERYTHROCYTE 7 mm/hr Normal 0-20 [facility] Comment on above: Performed By: #### L [id number] ####Director Of User Experience: WALESKA GUNTER ([id number])[facility] ([address] THYROID STIMULATING HORMONEo n 08-06-2023 THYROID STIMULATING HORMONE 3.775 uIU/mL Normal 0.465-4.680 [facility] Comment on above: Performed By: #### L AB103, LAB67, [id number], LAB17 ####Director Of User Experience: WALESKA GUNTER ([id number])[facility] ([facility])[address] [place] [address] [place] TSH Qnon 08-06-2023 Interpretation and review of laboratory results Normal [facility] VITAMIN B1, WHOLE BLOOD (BKR QUEST)on 08-06-2023 [facility]ST VITAMIN B1 (THIAMINE), BLOOD, LC/MS/MS 100 nmol/L Normal 78-185 [facility] Comment on above: Result Comment: Vitamin supplementation within 24 hours prior to blood draw may affect the accuracy of the results. This test was developed and its analytical performance characteristics have been determined by [facility], [place]. It has not been cleared or approved by the U.S. Food and Drug Administration. This assay has been validated pursuant to the CLIA regulations and is used for clinical purposes. Test Performed by [facility], [facility], [address] [place] [address] Roni Sadler M.D., Ph.D., Director of Laboratories , CLIA [id number] Performed By: #### L AB745 ####[employer] [facility])[address] [place] [address] [place] VITAMIN B12on 08-06-2023 Cobalamin (Vitamin B12) [Mass/Vol] 459 pg/mL Normal 239-931 [facility] Comment on above: Performed By: #### L AB103, LAB67, [id number], LAB17 ####Director Of User Experience: WALESKA GUNTER ([id number])[facility])[address] [place] [address] [place] C-REACTIVE PROTEINon 024 CRP [Mass/Vol] mg/L Normal <10.0 [facility] Comment on above: Performed By: #### L AB17, [id number] ####Director Of User Experience: WALESKA GUNTER ([id number])[facility] ([facility])[address] [place] [address] CBC W Auto Differential pane l (Bld)on 08-05-2023 Basophils (Bld) [#/Vol] 0.1 10*3/uL 0.0 - 0.2 10*3/uL [facility] Basophils/100 WBC (Bld) 0.5 % 0.0 - 2.0 % [facility] Eosinophils (Bld) [#/Vol] 0.1 10*3/uL 0.0 - 0.5 10*3/uL [facility] Eosinophils/100 WBC (Bld) 0.8 % 0.0 - 6.0 % [facility] Erythrocyte distribution width (RBC) [Ratio] 12.3 % 11.5 - 15.0 % [facility] Hematocrit (Bld) [Volume fraction] 39.5 % 35.0 - 47.0 % [facility] Hemoglobin (Bld) [Mass/Vol] 12.7 g/dL 11.7 - 16.0 g/dL [facility] Immature granulocytes (Bld) [#/Vol] 0.0 10*3/uL NINF - 0.1 10*3/uL [facility] Immature granulocytes/100 WBC (Bld) 0.4 % 0.0 - 2.0 % [facility] Interpretation and review of laboratory results Normal [facility] Lymphocytes (Bld) [#/Vol] 2.6 10*3/uL 1.0 - 4.3 10*3/uL [facility] Lymphocytes/100 WBC (Bld) 26.5 % 15.0 - 45.0 % [facility] MCH (RBC) [Entitic mass] 29.5 pg 26.0 - 34.0 pg [facility] MCHC (RBC) [Mass/Vol] 32.2 % 30.5 - 36.0 % [facility] MCV (RBC) [Entitic vol] 91.6 fL 77.0 - 99.0 fL [facility] Monocytes (Bld) [#/Vol] 0.8 10*3/uL 0.0 - 0.9 10*3/uL [facility] Monocytes/100 WBC (Bld) 7.8 % 5.0 - 13.0 % [facility] Neutrophils (Bld) [#/Vol] 6.3 10*3/uL 1.8 - 7.5 10*3/uL [facility] Neutrophils/100 WBC (Bld) 64.0 % 38.0 - 82.0 % [facility] Nucleated RBC/100 WBC (Bld) [Ratio] 0.0 % [facility] Platelet mean volume (Bld) [Entitic vol] 10.3 fL 9.0 - 12.7 fL [facility] Platelets (Bld) [#/Vol] 292 10*3/uL 140 - 440 10*3/uL [facility] RBC (Bld) [#/Vol] 4.31 10*6/uL 3.80 - 5.2 0 10*6/uL [facility] WBC (Bld) [#/Vol] 9.8 10*3/uL 3.6 - 10.7 10*3/uL [facility] CBC WITH AUTO DIFFERENTIALon 08-05-2023 Basophils (Bld) [#/Vol] 0.1 10*3/uL Normal 0.0-0.2 [facility] Comment on above: Performed By: #### L [id number] ####Director Of User Experience: WALESKA GUNTER ([id number])[facility] ([facility])[address] [place] [address] Basophils/100 WBC (Bld) 0.5 % Normal 0.0-2.0 [facility] Comment on above: Performed By: #### L [id number] ####Director Of User Experience: WALESKA GUNTER ([id number])[facility])[address] [place] [address] [place] Eosinophils (Bld) [#/Vol] 0.1 10*3/uL Normal 0.0-0.5 [facility] Comment on above: Performed By: #### L [id number] ####Director Of User Experience: WALESKA GUNTER ([id number])[facility])[address] [place] [address] [place] Eosinophils/100 WBC (Bld) 0.8 % Normal 0.0-6.0 [facility] Comment on above: Performed By: #### L [id number] ####Director Of User Experience: WALESKA [id number])[facility])[address] [place] [address] Erythrocyte distribution width (RBC) [Ratio] 12.3 % Normal 11.5-15.0 [facility] Comment on above: Performed By: #### L [id number] ####Director Of User Experience: WALESKA GUNTER ([id number])[facility])[address] [place] [address] Hematocrit (Bld) [Volume fraction] 39.5 % Normal 35.0-47.0 [facility] Comment on above: Performed By: #### L [id number] ####Director Of User Experience: WALESKA GUNTER ([id number])[facility])[address] [place] [address] Hemoglobin (Bld) [Mass/Vol] 12.7 g/dL Normal 11.7-16.0 [facility] Comment on above: Performed By: #### L [id number] ####Director Of User Experience: WALESKA GUNTER ([id number])[facility])[address] [place] [address] IMMATURE GRANS % 0.4 % Normal 0.0-2.0 [facility] Comment on above: Performed By: #### L [id number] ####Director Of User Experience: WALESKA GUNTER ([id number])[facility])[address] [place] [address] IMMATURE GRANS ABSOLUTE 0.0 10*3/uL Normal <0.1 [facility] Comment on above: Performed By: #### L [id number] ####Director Of User Experience: WALESKA GUNTER ([id number])[facility])[address] [place] [address] Lymphocytes (Bld) [#/Vol] 2.6 10*3/uL Normal 1.0-4.3 [facility] Comment on above: Performed By: #### L [id number] ####Director Of User Experience: WALESKA GUNTER ([id number])[facility])[address] [place] [address] Lymphocytes/100 WBC (Bld) 26.5 % Normal 15.0-45.0 [facility] Comment on above: Performed By: #### L [id number] ####Director Of User Experience: WALESKA GUNTER ([id number])[facility])[address] [place] [address] MCH (RBC) [Entitic mass] 29.5 pg Normal 26.0-34.0 [facility] Comment on above: Performed By: #### L [id number] ####Director Of User Experience: WALESKA GUNTER ([id number])[facility])[address] [place] [address] MCHC 32.2 % Normal 30.5-36.0 [facility] Comment on above: Performed By: #### L [id number] ####Director Of User Experience: WALESKA GUNTER ([id number])[facility])[address] [place] [address] MCV (RBC) [Entitic vol] 91.6 fL Normal 77.0-99.0 [facility] Comment on above: Performed By: #### L [id number] ####Director Of User Experience: WALESKA GUNTER ([id number])[facility])[address] [place] [address] Monocytes (Bld) [#/Vol] 0.8 10*3/uL Normal 0.0-0.9 [facility] Comment on above: Performed By: #### L [id number] ####Director Of User Experience: WALESKA GUNTER ([id number])[facility])[address] [place] [address] Monocytes/100 WBC (Bld) 7.8 % Normal 5.0-13.0 [facility] Comment on above: Performed By: #### L [id number] ####Director Of User Experience: WALESKA GUNTER ([id number])[facility])[address] [place] [address] NEUTROPHILS ABSOLUTE 6.3 10*3/uL Normal 1.8-7.5 [facility] Comment on above: Performed By: #### L [id number] ####Director Of User Experience: WALESKA GUNTER ([id number])[facility] ([facility])[address] [place] [address] Neutrophils/100 WBC (Bld) 64.0 % Normal 38.0-82.0 [facility] Comment on above: Performed By: #### L [id number] ####Director Of User Experience: WALESKA GUNTER ([id number])[facility] ([facility])[address] [place] [address] NRBC 0.0 /100 WBCs Normal 0.0-2.0 [facility] Comment on above: Performed By: #### L [id number] ####Director Of User Experience: WALESKA GUNTER ([id number])[facility] ([facility])[address] [place] [address] Platelet mean volume (Bld) [Entitic vol] 10.3 fL Normal 9.0-12.7 [facility] Comment on above: Performed By: #### L [id number] ####Director Of User Experience: WALESKA GUNTER ([id number])[facility] ([facility])[address] [place] [address] Platelets (Bld) [#/Vol] 292 10*3/uL Normal 140-440 [facility] Comment on above: Performed By: #### L [id number] ####Director Of User Experience: WALESKA GUNTER ([id number])[facility])[address] [place] [address] RBC (Bld) [#/Vol] 4.31 10*6/uL Normal 3.80-5.20 [facility] Comment on above: Performed By: #### L [id number] ####Director Of User Experience: WALESKA GUNTER ([id number])[facility])[address] [place] [address] [place] WBC (Bld) [#/Vol] 9.8 10*3/uL Normal 3.6-10.7 [facility] Comment on above: Performed By: #### L [id number] ####Director Of User Experience: WALESKA GUNTER ([id number])[facility] ([facility])[address] [place] [address] COMPLETE URINALYSISon 2023 BACTERIA (#/HPF) IN URINE Negative Normal Negative [facility] Comment on above: Performed By: #### L [id number] ####Director Of User Experience: WALESKA GUNTER ([id number])[facility] ([facility])[address] [place] [address] BILIRUBIN, TOTAL PRESENCE IN URINE Negative Normal Negative [facility] Comment on above: Performed By: #### L [id number] ####Director Of User Experience: WALESKA GUNTER ([id number])[facility] ([facility])[address] [place] [address] Clarity (U) Clear Normal Clear [facility] Comment on above: Performed By: #### L [id number] ####Director Of User Experience: WALESKA GUNTER ([id number])[facility] ([facility])[address] [place] [address] Color (U) Light Yellow Normal Lt. Yellow [facility] Comment on above: Performed By: #### L [id number] ####Director Of User Experience: WALESKA GUNTER ([id number])[facility] ([facility])[address] [place] [address] GLUCOSE (MG/DL) IN URINE Normal Normal Normal (<70) [facility] Comment on above: Performed By: #### L [id number] ####Director Of User Experience: WALESKA GUNTER ([id number])[facility] ([facility])[address] [place] [address] HEMOGLOBIN PRESENCE IN URINE Negative Normal Negative [facility] Comment on above: Performed By: #### L [id number] ####Director Of User Experience: WALESKA GUNTER ([id number])[facility])[address] [place] [address] Ketones Ql (U) Negative Normal Negative [facility] Comment on above: Performed By: #### L [id number] ####Director Of User Experience: WALESKA GUNTER ([id number])[facility] ([facility])[address] LEUKOCYTE ESTERASE PRESENCE IN URINE BY TEST STRIP 250 Barak/uL Abnormal Negative [facility] Comment on above: Performed By: #### L [id number] ####Director Of User Experience: WALESKA GUNTER ([id number])[facility] ([facility])[address] [place] [address] MUCUS (#/LPF) IN URINE SEDIMENT Few Normal Negative [facility] Comment on above: Performed By: #### L [id number] ####Director Of User Experience: WALESKA GUNTER ([id number])[facility] ([facility])[address] [place] [address] NITRITE PRESENCE IN URINE Negative Normal Negative [facility] Comment on above: Performed By: #### L [id number] ####Director Of User Experience: WALESKA GUNTER ([id number])[facility])[address] [place] [address] pH (U) 6.0 [pH] Normal 5.0-8.0 [facility] Comment on above: Performed By: #### L [id number] ####Director Of User Experience: WALESKA GUNTER ([id number])[facility] ([facility])[address] [place] [address] Protein (U) [Mass/Vol] 10 mg/dL Abnormal Negative [facility] Comment on above: Performed By: #### L [id number] ####Director Of User Experience: WALESKA GUNTER ([id number])[facility] ([facility])[address] [place] [address] [place] RBC (#/HPF) IN URINE SEDIMENT >100 Abnormal 0-2 [facility] Comment on above: Performed By: #### L [id number] ####Director Of User Experience: WALESKA GUNTER ([id number])[facility])[address] [place] [address] Specific gravity (U) [Rel density] >1.030 High 1.005-1.030 [facility] Comment on above: Performed By: #### L [id number] ####Director Of User Experience: WALESKA GUNTER ([id number])[facility])[address] [place] [address] SQUAMOUS EPITHELIAL CELLS (#/HPF) IN URINE SEDIMENT 6-10 Abnormal 3-5 [facility] Comment on above: Performed By: #### L [id number] ####Director Of User Experience: WALESKA GUNTER ([id number])[facility])[address] [place] [address] UROBILINOGEN (MG/DL) IN URINE Normal Normal Normal (0-1) [facility] Comment on above: Performed By: #### L [id number] ####Director Of User Experience: WALESKA GUNTER ([id number])[facility])[address] [place] [address] WBC (LEUKOCYTE) (#/HPF) IN URINE SEDIMENT 11-25 Abnormal 0-5 [facility] Comment on above: Performed By: #### L [id number] ####Director Of User Experience: WALESKA GUNTER ([id number])[facility])[address] [place] [address] COMPREHENSIVE METABOLIC PANE Juan 08-05-2023 Albumin [Mass/Vol] 4.4 g/dL Normal 3.5-5.0 [facility] Comment on above: Performed By: #### L [id number], [id number] ####Director Of User Experience: WALESKA GUNTER ([id number])[facility])[address] [place] [address] ALP [Catalytic activity/Vol] 113 U/L Normal 38-126 [facility] Comment on above: Performed By: #### L AB17, [id number] ####Director Of User Experience: WALESKA GUNTER ([id number])[facility])[address] [place] [address] ALT [Catalytic activity/Vol] 35 U/L High 0-34 [facility] Comment on above: Performed By: #### L AB17, [id number] ####Director Of User Experience: WALESKA GUNTER ([id number])[facility])[address] [place] [address] Anion gap [Moles/Vol] 12 mmol/L Normal 3-13 [facility] Comment on above: Performed By: #### L [id number], [id number] ####Director Of User Experience: WALESKA GUNTER ([id number])[facility])[address] [place] [address] AST [Catalytic activity/Vol] 41 U/L Normal 15-46 [facility] Comment on above: Performed By: #### L [id number], [id number] ####Director Of User Experience: WALESKA GUNTER ([id number])[facility] ([facility])[address] [place] [address] Bilirubin [Mass/Vol] 0.5 mg/dL Normal 0.2-1.3 [facility] Comment on above: Performed By: #### L AB17, [id number] ####Director Of User Experience: WALESKA GUNTER ([id number])[facility] ([facility])[address] [place] [address] Calcium [Mass/Vol] 9.4 mg/dL Normal 8.4-10.4 [facility] Comment on above: Performed By: #### L AB17, [id number] ####Director Of User Experience: WALESKA GUNTER ([id number])[facility] ([facility])[address] [place] [address] Chloride [Moles/Vol] 110 mmol/L High 98-107 [facility] Comment on above: Performed By: #### L AB17, [id number] ####Director Of User Experience: WALESKA GUNTER ([id number])[facility] ([facility])[address] [place] [address] CO2 [Moles/Vol] 21 mmol/L Low 22-30 [facility] Comment on above: Performed By: #### L AB17, [id number] ####Director Of User Experience: WALESKA GUNTER ([id number])[facility])[address] [place] [address] Creatinine [Mass/Vol] 0.47 mg/dL Low 0.52-1.04 [facility] Comment on above: Performed By: #### L AB17, [id number] ####Director Of User Experience: WALESKA [id number])[facility])[address] [place] [address] GLOMERULAR FILTRATION RATE ML/MIN/1.73 SQ M.PREDICTED >90.0 Normal >60.0 [facility] Comment on above: Result Comment: Calc ulation based on the Chronic Kidney Disease Epidemiology Collaboration (CKD-EPI) equation refit without adjustment for race Performed By: #### L AB17, [id number] ####Director Of User Experience: WALESKA GUNTER ([id number])[facility] ([facility])[address] [place] [address] Glucose [Mass/Vol] 96 mg/dL Normal 70-100 [facility] Comment on above: Performed By: #### L AB17, [id number] ####Director Of User Experience: WALESKA GUNTER ([id number])[facility])[address] [place] [address] Potassium [Moles/Vol] 4.0 mmol/L Normal 3.5-5.1 [facility] Comment on above: Performed By: #### L AB17, [id number] ####Director Of User Experience: WALESKA GUNTER ([id number])[facility])[address] [place] [address] Protein [Mass/Vol] 7.5 g/dL Normal 6.3-8.2 [facility] Comment on above: Performed By: #### L AB17, [id number] ####Director Of User Experience: WALESKA GUNTER ([id number])[facility])[address] [place] [address] [place] Sodium [Moles/Vol] 143 mmol/L Normal 135-145 [facility] Comment on above: Performed By: #### L AB17, [id number] ####Director Of User Experience: WALESKA GUNTER ([id number])[facility])[address] [place] [address] [place] Urea nitrogen [Mass/Vol] 13 mg/dL Normal 7-17 [facility] Comment on above: Performed By: #### L AB17, [id number] ####Director Of User Experience: WALESKA [id number])[facility] ([facility])[address] [place] [address] CRP [Mass/Vol]on 08-05-2023 Interpretation and review of laboratory results Normal [facility] CT ABDOMEN PELVIS W CONTRAST on 08-05-2023 CT ABDOMEN PELVIS W CONTRAST Patient Name: AYALA ARANDA : 1965 [facility]#: [id number] Exam Date/Time: 08/05/2023 18:59 Procedure: CT ABDOMEN PELVIS W CONTRAST Ordering Provider: CALABRESE YASMIN Reason For Exam: Abdominal pain, acute, nonlocalized CT ABDOMEN AND PELVIS WITH CONTRAST CLINICAL INDICATION: Acute abdominal pain. TECHNIQUE: Multi-axial 3mm sections through the abdomen and pelvis following 75 mL of Isoview contrast media. No oral contrast was administered. Coronal and sagittal reconstructions were reviewed. Dose reduction was employed with automated exposure control. COMPARISON: 05/17/2018. FINDINGS: Lung bases: Minimal left basilar atelectasis. Small sliding internal hernia. Liver: Normal size and contours. No focal lesion. 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 Biliary tree: Gallbladder is surgically absent. No biliary dilatation. Spleen: Normal. Adrenals: Normal. Pancreas: Pancreatic head cystic structure measures 1.5 cm mean axial diameter (was 1.1 cm). No pancreatic ductal dilatation. Normal enhancing pancreatic gland. Kidneys: Interval 3 mm left mid renal nonobstructing calculus. Symmetric contrast enhancement without evidence of hydronephrosis. No focal renal lesion is identified. Free air or fluid: None. Mesenteric/retroperiton eal: Wispy stranding within the mid left mesentery suggest acute panniculitis. Aorta: Atherosclerotic calcific aortic and iliac artery changes. Bowel: The appendix is not visualized and no pericecal inflammatory changes are evident.. No dilatation is noted. Abdominal wall: No ventral hernia is evident. Pelvic organs/viscera: No mass identified. Urinary bladder is normally distended. No pelvic free fluid. Uterus is surgically absent Inguinal lymphadenopathy: None. Osseous structures: No osseous abnormality. IMPRESSION: No acute abdominal or pelvic findings to explain symptoms. Acute mesenteric panniculitis. Interval 3 mm nonobstructing left renal calculus. No hydronephrosis or hydroureter. 1.5 cm mean axial pancreatic head cystic structure (was 1.1 cm in 2019) this finding may represent IPMN or pseudocyst. Report Dictated on Electronically Signed By: Ramu Cruz DO Electronically Signed Date/Time: 08/05/2023 7:17 PM EDT [facility] CT Abdomen and Pelvis W cont rast Will 08-05-2023 No acute abdominal o r pelvic findings to explain symptoms. Acute mesenteric panniculitis. Interval 3 mm nonobstructing left renal calculus. No hydronephrosis or hydroureter. 1.5 cm mean axial pancreatic head cystic structure (was 1.1 cm in 2019) this finding may represent IPMN or pseudocyst. Report Dictated on Electronically Signed By: Ramu Cruz DO Electronically Signed Date/Time: 08/05/2023 7:17 PM EDT [facility] Patient Name: AYALA ARANDA : 1965 [facility]#: [id number] Exam Date/Time: 08/05/2023 18:59 Procedure: CT ABDOMEN PELVIS W CONTRAST Ordering Provider: CALABRESE YASMIN Reason For Exam: Abdominal pain, acute, nonlocalized CT ABDOMEN AND PELVIS WITH CONTRAST CLINICAL INDICATION: Acute abdominal pain. TECHNIQUE: Multi-axial 3mm sections through the abdomen and pelvis following 75 mL of Isoview contrast media. No oral contrast was administered. Coronal and sagittal reconstructions were reviewed. Dose reduction was employed with automated exposure control. COMPARISON: 05/17/2018. FINDINGS: Lung bases: Minimal left basilar atelectasis. Small sliding internal hernia. Liver: Normal size and contours. No focal lesion. 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 Biliary tree: Gallbladder is surgically absent. No biliary dilatation. Spleen: Normal. Adrenals: Normal. Pancreas: Pancreatic head cystic structure measures 1.5 cm mean axial diameter (was 1.1 cm). No pancreatic ductal dilatation. Normal enhancing pancreatic gland. Kidneys: Interval 3 mm left mid renal nonobstructing calculus. Symmetric contrast enhancement without evidence of hydronephrosis. No focal renal lesion is identified. Free air or fluid: None. Mesenteric/retroperiton eal: Wispy stranding within the mid left mesentery suggest acute panniculitis. Aorta: Atherosclerotic calcific aortic and iliac artery changes. Bowel: The appendix is not visualized and no pericecal inflammatory changes are evident.. No dilatation is noted. Abdominal wall: No ventral hernia is evident. Pelvic organs/viscera: No mass identified. Urinary bladder is normally distended. No pelvic free fluid. Uterus is surgically absent Inguinal lymphadenopathy: None. Osseous structures: No osseous abnormality. [facility] Ramu Cruz DO - 08/05/2023 Patient Name: AYALA ARANDA : 1965 Exam Date/Time: 08/05/2023 18:59 Procedure: CT ABDOMEN PELVIS W CONTRAST Ordering Provider: CALABRESE YASMIN Reason For Exam: Abdominal pain, acute, nonlocalized CT ABDOMEN AND PELVIS WITH CONTRAST CLINICAL INDICATION: Acute abdominal pain. TECHNIQUE: Multi-axial 3mm sections through the abdomen and pelvis following 75 mL of Isoview contrast media. No oral contrast was administered. Coronal and sagittal reconstructions were reviewed. Dose reduction was employed with automated exposure control. COMPARISON: 05/17/2018. FINDINGS: Lung bases: Minimal left basilar atelectasis. Small sliding internal hernia. Liver: Normal size and contours. No focal lesion. 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 Biliary tree: Gallbladder is surgically absent. No biliary dilatation. Spleen: Normal. Adrenals: Normal. Pancreas: Pancreatic head cystic structure measures 1.5 cm mean axial diameter (was 1.1 cm). No pancreatic ductal dilatation. Normal enhancing pancreatic gland. Kidneys: Interval 3 mm left mid renal nonobstructing calculus. Symmetric contrast enhancement without evidence of hydronephrosis. No focal renal lesion is identified. Free air or fluid: None. Mesenteric/retroperiton eal: Wispy stranding within the mid left mesentery suggest acute panniculitis. Aorta: Atherosclerotic calcific aortic and iliac artery changes. Bowel: The appendix is not visualized and no pericecal inflammatory changes are evident.. No dilatation is noted. Abdominal wall: No ventral hernia is evident. Pelvic organs/viscera: No mass identified. Urinary bladder is normally distended. No pelvic free fluid. Uterus is surgically absent Inguinal lymphadenopathy: None. Osseous structures: No osseous abnormality. IMPRESSION: No acute abdominal or pelvic findings to explain symptoms. Acute mesenteric panniculitis. Interval 3 mm nonobstructing left renal calculus. No hydronephrosis or hydroureter. 1.5 cm mean axial pancreatic head cystic structure (was 1.1 cm in 2019) this finding may represent IPMN or pseudocyst. Report Dictated on Electronically Signed By: Ramu Cruz DO Electronically Signed Date/Time: 08/05/2023 7:17 PM EDT [employer] CT Abdomen and Pelvis W cont rast IVOrdered By: Ramu Cruz on 08-05-2023 [employer] Work Phone: CT HEAD WO IV CONTRASTon CT HEAD WO IV CONTRAST Patient Name: AYALA BATRES : 1965 Exam Date/Time: 08/05/2023 18:59 Procedure: CT HEAD WO IV CONTRAST Ordering Provider: MARRERO MICHELLE Reason For Exam: Seizure disorder, clinical change CT BRAIN WITHOUT CONTRAST CLINICAL INDICATION: Seizure disorder, clinical change TECHNIQUE: CT scan of the brain without IV contrast. Multiplanar reformations. Dose reduction was employed with automated exposure control. COMPARISON: April,. FINDINGS: No apparent mass or mass effect, hemorrhage, midline shift or hydrocephalus. No evidence of acute cortical infarct. No abnormal, extra-axial fluid or air collection. Patchy low density in the periventricular and subcortical white matter is nonspecific, but may relate to chronic small vessel ischemic change. Mild, diffuse volume loss. Osseous calvarium grossly intact. IMPRESSION: 1. No acute intracranial findings. 2. Probable chronic ischemic and atrophic changes. Report Dictated on Electronically Signed By: Adan Kirk MD Electronically Signed Date/Time: 08/05/2023 7:04 PM EDT Normal [facility] CT Head WO contraston 2023 1. No acute intracranial findings. 2. Probable chronic ischemic and atrophic changes. Report Dictated on Electronically Signed By: Adan Kirk MD Electronically Signed Date/Time: 08/05/2023 7:04 PM EDT [facility] Patient Name: AYALA ARANDA : 1965 [facility]#: [id number] Exam Date/Time: 08/05/2023 18:59 Procedure: CT HEAD WO IV CONTRAST Ordering Provider: MARRERO MICHELLE Reason For Exam: Seizure disorder, clinical change CT BRAIN WITHOUT CONTRAST CLINICAL INDICATION: Seizure disorder, clinical change TECHNIQUE: CT scan of the brain without IV contrast. Multiplanar reformations. Dose reduction was employed with automated exposure control. COMPARISON: April,. FINDINGS: No apparent mass or mass effect, hemorrhage, midline shift or hydrocephalus. No evidence of acute cortical infarct. No abnormal, extra-axial fluid or air collection. Patchy low density in the periventricular and subcortical white matter is nonspecific, but may relate to chronic small vessel ischemic change. Mild, diffuse volume loss. Osseous calvarium grossly intact. [facility] Adan Kirk MD - 08/05/2023 Patient Name: AYALA ARANDA : 1965 Exam Date/Time: 08/05/2023 18:59 Procedure: CT HEAD WO IV CONTRAST Ordering Provider: MARRERO MICHELLE Reason For Exam: Seizure disorder, clinical change CT BRAIN WITHOUT CONTRAST CLINICAL INDICATION: Seizure disorder, clinical change TECHNIQUE: CT scan of the brain without IV contrast. Multiplanar reformations. Dose reduction was employed with automated exposure control. COMPARISON: April,. FINDINGS: No apparent mass or mass effect, hemorrhage, midline shift or hydrocephalus. No evidence of acute cortical infarct. No abnormal, extra-axial fluid or air collection. Patchy low density in the periventricular and subcortical white matter is nonspecific, but may relate to chronic small vessel ischemic change. Mild, diffuse volume loss. Osseous calvarium grossly intact. IMPRESSION: 1. No acute intracranial findings. 2. Probable chronic ischemic and atrophic changes. Report Dictated on Electronically Signed By: Adan Kirk MD Electronically Signed Date/Time: 08/05/2023 7:04 PM EDT [facility] CT Head WO contrastOrdered B y: Adan Kirk on 08-05-2023 [facility] Work Phone: Comprehensive metabolic 1998 panelon 08-05-2023 Albumin [Mass/Vol] 4.4 g/dL 3.5 - 5.0 g/dL [facility] ALP [Catalytic activity/Vol] 113 U/L 38 - 126 U/L [facility] ALT [Catalytic activity/Vol] 35 U/L High 0 - 34 U/L [facility] Anion gap [Moles/Vol] 12 mmol/L 3 - 13 mmol/L [facility] AST [Catalytic activity/Vol] 41 U/L 15 - 46 U/L [facility] Bilirubin [Mass/Vol] 0.5 mg/dL 0.2 - 1 .3 mg/dL [facility] Calcium [Mass/Vol] 9.4 mg/dL 8.4 - 10. 4 mg/dL [facility] Chloride [Moles/Vol] 110 mmol/L High 98 - 10 7 mmol/L [facility] CO2 [Moles/Vol] 21 mmol/L Low 22 - 30 mmol/L [facility] Creatinine [Mass/Vol] 0.47 mg/dL Low 0.52 - 1.04 mg/dL [facility] GFR/1.73 sq M.predicted MDRD (S/P/Bld) [Vol rate/Area] - PINF [facility] Comment on above: Calculation based on the Chronic Kidney Disease Epidemiology Collaboration (CKD-EPI) equation refit without adjustment for race Glucose [Mass/Vol] 96 mg/dL 70 - 100 mg/dL [facility] Interpretation and review of laboratory results Abnormal [facility] Potassium [Moles/Vol] 4.0 mmol/L 3.5 - 5.1 mmol/L [facility] Protein [Mass/Vol] 7.5 g/dL 6.3 - 8.2 g/dL [facility] Sodium [Moles/Vol] 143 mmol/L 135 - 145 mmol/L [facility] Urea nitrogen [Mass/Vol] 13 mg/dL 7 - 17 mg/dL [facility] DRUGS OF ABUSEon 08-05-2023 AMPHETAMINE SCREEN Negative Normal [facility] Comment on above: Performed By: #### L [id number] ####Director Of User Experience: WALESKA GUNTER ([id number])[facility] ([facility])[address] BARBITURATES SCREEN Negative Normal [facility] Comment on above: Performed By: #### L [id number] ####Director Of User Experience: WALESKA GUNTER ([id number])[facility] ([facility])[address] [place] [address] BENZODIAZEPINE SCREEN Positive Normal [facility] Comment on above: Performed By: #### L [id number] ####Director Of User Experience: WALESKA GUNTER ([id number])[facility] ([facility])[address] [place] [address] COCAINE METAB. SCREEN Negative Normal [facility] Comment on above: Performed By: #### L [id number] ####Director Of User Experience: WALESKA GUNTER ([id number])[facility] ([facility])[address] [place] [address] METHADONE SCREEN Negative Normal [facility] Comment on above: Performed By: #### L [id number] ####Director Of User Experience: WALESKA GUNTER ([id number])[facility] ([facility])[address] [place] [address] OPIATES SCREEN Negative Normal [facility] Comment on above: Performed By: #### L [id number] ####Director Of User Experience: WALESKA GUNTER ([id number])[facility] ([facility])[address] [place] [address] OXYCODONE SCREEN Negative Normal [facility] Comment on above: Performed By: #### L [id number] ####Director Of User Experience: WALESKA GUNTER ([id number])[facility] ([facility])[address] [place] [address] [place] PHENCYCLIDINE SCREEN Negative Normal [facility] Comment on above: Result Comment: MARA Tinoco COMMENTS: The expected value for all of the drugs listed above is Negative. The following drugs or drug groups have been screened for by Immunoassay at the following thresholds: Amphetamine class (1000 ng/mL) Barbiturates (200 ng/mL) Benzodiazepines (200 ng/mL) Cocaine (300 ng/mL) Methadone (300 ng/mL) Opiates (300 ng/mL) Oxycodone (100 ng/mL) PCP (25 ng/mL) NOTE: These results are for medical treatment only. Analysis performed using non-forensic procedures. POSITIVE results are NOT confirmed by a more specific alternative method unless requested. If confirmation is needed, request confirmation under separate order. Performed By: #### L [id number] ####Director Of User Experience: WALESKA GUNTER ([id number])[facility] ([address] ECG 12-LEADon 08-05-2023 ECG 12-LEAD IMPRESSION: Sinus rhythm Normal axis No ST segment elevations No significant changes from previous ECG Electronically Signed On 08-05-2023 23:28:14 EDT by Ramu Hilario [facility] ED Nursing Noteon 08-05-2023 ED Nursing Note Patient to floor wit h transport. Patient is stable, A&Ox4 with even & unlabored respirations. Shonna Pham RN 08/05/232145 [facility] ED Nursing Note Purwick placed to collect urine sample Shonna Pham RN 08/05/232004 [facility] ED Nursing Note Shift change report to JADON Kilpatrick RN 08/05/231923 [facility] ED Nursing Note Report to Savannah DIOP. Janki Jose RN 08/05/231901 [facility] ED Nursing Note Report from JADON Shearer - seizure pads placed on bed, pt resting comfortably, denies needs at his time. Zahida Rosas RN 08/05/23 190 [facility] ED Nursing Note Lactic acid 4.1, Dr. Calabrese notified. Janki Jose RN 08/05/23 190 [facility] ED Nursing Note Pt alert and answeri ng questions appropriately at this time. Janki Jose RN 08/05/23 181 [facility] ED Nursing Note 4 mg IV ativan given per Dr. Calabrese at this time. Janki Jose RN 08/05/23 181 [facility] ED Nursing Note Pt appears to be hav ing seizure like activity at this time. Pt to room 60, Dr. Marrero, Dr. Calabrese, Zahida DIOP and Denis MENEZES at bedside upon pt arrival. Janki Jose RN 08/05/23 1830 [facility] ED Provider Noteon ED Provider Note EMERGENCY DEPARTMENT ENCOUNTER Pt Name: Ayala Aranda Birthdate 1965 Date of evaluation: 08/05/2023 ED Provider: LUCY BARTLETT DO CHIEF COMPLAINT Chief Complaint Patient presents with Seizures Per [facility] pt called 911 because she was not feeling well, witnessed seizure per EMS. Pt had tonic clonic like movements upon arrival. Pt became immediately alert and oriented after receiving IV ativan, no post ictal period noted. Pt has hx of DM, no seizure hx. EMS glucose was 205. HISTORY OF PRESENT ILLNESS (Location/Symptom, Timing/Onset, Context/Setting, Quality, Duration, Modifying Factors, Severity) Note limiting factors. I wore appropriate PPE for the entirety of this encounter. HPI Ayala Aranda is a 58 y.o. without history of seizures who presents to the emergency department for evaluation of seizure-like activity. En route to the hospital she was given intranasal Versed by EMS. She was given a total of 4 mg of Ativan in the ED. Stopped seizure-like activity. She had no postictal period. Denies fever, chills, recent illness, headache, neck pain, neck stiffness, nausea, vomiting, changes in bowel movements, abdominal pain, dizziness, lightheadedness, chest pain, shortness of breath. Nursing Notes were reviewed. Limitations to history: None Outside historians: EMS REVIEW OF SYSTEMS Review of Systems Pertinent positives and negatives as per HPI. 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 COLONOSCOPY 04/2018 CYSTOSCOPY 03/17/2014 DR Luo. bilat urerteral stent placement. GASTRIC BYPASS 02/12/2018 LRYGB- Dr. Gomez [facility] HERNIA REPAIR 01/21/2019 Dr. Riley - [facility] General Surgery-retrorectus ventral repair w mesh. exp lap, BABATUNDE. HYSTERECTOMY 2007 low transverse INCISIONAL HERNIA REPAIR 02/03/2012 excision of syntheti mesh and use of Strattice with component separation. INCISIONAL HERNIA REPAIR 09/09/2011 [place] NECK SURGERY 2002 OTHER SURGICAL HISTORY 11/03/2019 panniculectomy with vac prevena placement UPPER GASTROINTESTINAL ENDOSCOPY 06/16/2017 PRE-OP PATRICIA UPPER GASTROINTESTINAL ENDOSCOPY 04/06/2018 CURRENT MEDICATIONS Discharge Medication List as of 08/07/2023 3:09 PM CONTINUE these medications which have NOT CHANGED Details aspirin 81 MG EC tablet Take 1 tablet (81 mg) by mouth daily., Starting Thu05/19/2023, Until Thu05/18/2024, Normal Biotin 5 MG tablet dispersible Take 5,000 mcg by mouth in the morning., Historical Med cholecalciferol (Vitamin D-3) 50 MCG (2000 UT) capsule Take 2,000 Units by mouth in the morning., Historical Med cyanocobalamin (Vitamin B-12) 1000 MCG tablet Take 1,000 mcg by mouth in the morning., Historical Med Docusate Sodium (DSS) 100 MG capsule Take 100 mg by mouth daily., Starting Thu09/27/2020, Until Thu09/07/2023, Historical Med ferrous sulfate 325 (65 Fe) MG tablet Take 325 mg by mouth daily (with breakfast)., Historical Med levothyroxine (Tirosint) 100 MCG capsule Take 100 mcg by mouth every morning (before breakfast)., Historical Med losartan (Cozaar) 50 MG tablet Take 1 tablet (50 mg) by mouth daily. Do not start before May 20, 2023., Starting Thu05/20/2023, Until Thu05/19/2024, Normal rosuvastatin (Crestor) 20 MG tablet Take 20 mg by mouth daily., Starting Thu03/11/2023, Until Thu09/07/2023, Historical Med ALLERGIES Diphenhydramine, Morphine, Tylenol [acetaminophen], and Vancomycin FAMILY HISTORY Family History Problem Relation Name Age of Onset Hypertension Brother Heart disease Mother Hyperlipidemia Mother COPD Mother Bleeding Prob Mother Diabetes Mother Heart disease Father Hypertension Paternal Grandmother Hypertension Mother Colon cancer Neg Hx Diabetes Paternal Grandfather Hypertension Paternal Grandfather SOCIAL HISTORY Social History Socioeconomic History Marital status: Tobacco Use Smoking status: Never Smokeless tobacco: Never Substance and Sexual Activity Alcohol use: No Alcohol/week: 0.0 standard drinks of alcohol Drug use: No Social Determinants of Health Transportation Nee (more content not included)... Normal [facility] ED Provider Note Emergency Department Encounter [facility] EMERGENCY DEPT Patient: Ayala Aranda : 1965 Date of Evaluation: 08/05/2023 ED Supervising Physician: Mandy Calabrese MD I personally evaluated Ayala Aranda and made/approved the management plan and take responsibility for the patient management. This will serve as my Supervisory note and shared attestation. I did perform a substantive portion of the visit including all aspects of the Medical Decision Making. I wore appropriate PPE for the entirety of this encounter. In brief, Ayala Aranda is a 58 y.o. that presents to the emergency department for altered mental status and concern for seizure-like activity. Per EMS report she has been having some weakness since yesterday and has not only been eating or drinking anything. When they arrived family stated that she had been seizing for about 10 minutes. They gave her 10 mg of intranasal Versed which did seem to stop her seizure-like activity however it restarted before she returned to baseline. Patient is unable provide history at this time as she is actively having seizure-like activity. Focused exam: Patient actively seizing with generalized tonic-clonic movements in the exam room. Eyes are clenched shut and unable to fully open them. Abdomen is soft and nontender to palpation. There is no obvious signs of trauma or injury to the extremities. Brief ED course/MDM: 50-year-old female to emergency room today for concern for seizure-like activity. Upon arrival to the emergency department she came into our resuscitation bay. I evaluated her medial upon arrival. She was generalized tonic-clonic movements. She is not tachycardic or hypoxic so there is concern that maybe these are pseudoseizures or nonepileptic seizures. When her arm was placed above her head she was able to move it out of the way of her face so that it would not hit her however when noxious stimuli was done with saline into her eye she did not have any reaction. Given this there is concern that may be this is an epileptic seizure. She is no history of a seizure in the past. I did give her 4 mg of Ativan which did seem to stop the seizure-like activity. About 2 to 3 minutes later she was now alert and oriented x 3. She did not seem to have any kind of confusion or postictal state which makes me less likely to think that this is an epileptic seizure. States that she just has not been feeling very well and having some abdominal pain. Denies any seizure history. Denies any falls without injury. We did get a CT scan of her head to rule out intracranial processes that could lead to seizures including mass or bleed. She has no focal neurologic deficits. She is an NIH of 0 on my exam. I reviewed the CT scan of her head my interpretation is that it is unremarkable. CT scan of her abdomen shows some panniculitis. She has no significant leukocytosis. Her lactic was mildly elevated at 4 and then down trended to 0.8 after getting fluid resuscitated. Given the concern for seizure she will be admitted for further management of her care. Admitted to the medical service for further management. Admitted in stable condition. Diagnostics interpreted by me: CT head I personally discussed the patient's management with other clinicians: All diagnostic, treatment, and disposition decisions were made by myself in conjunction with the Resident. I also supervised schrader portions of any procedures performed by the Resident. For all further details of the patient's emergency department visit, please see their documentation. (Comment: Please note this report has been produced using speech recognition software and may contain errors related to that system including errors in grammar, punctuation, and spelling, as well as words and phrases that may be inappropriate. If there are any questions or concerns please feel free to contact the dictating provider for clarification.) Mandy Calabrese MD Acute Care [facility] Mandy Calabrese MD 08/05/232056 [facility] HEMOGLOBIN A1Con 08-05-2023 Glucose [Mass/Vol] 103 mg/dL Normal [facility] Comment on above: Performed By: #### L [id number] ####Director Of User Experience: WALESKA GUNTER ([phone])[facility])[address] [place] [address] HbA1c (Bld) [Mass fraction] 5.2 % Normal <5.7 [facility] Comment on above: Result Comment: Norm al less than 5.7% Prediabetes 5.7% to 6.4% Diabetes 6.5% or higher --HgbA1C levels may not be accurate in patients who have renal disease, received recent blood transfusions, are anemic, or who have dyshemoglobinemia. Performed By: #### L [id number] ####Director Of User Experience: WALESKA GUNTER ([id number])[facility])[address] [place] [address] LACTIC ACID WITH REFLEXon Lactate [Moles/Vol] 0.8 mmol/L Normal 0.7-2.0 [facility] Comment on above: Performed By: #### L [id number] ####Director Of User Experience: WALESKA GUNTER ([id number])[facility])[address] [place] [address] Lactate [Moles/Vol] 4.1 mmol/L Critically high 0.7-2.0 [facility] Comment on above: Performed By: #### L [id number] ####Director Of User Experience: WALESKA GUNTER ([id number])[facility])[address] [place] [address] Laboratory - Chemistry and C hemistry - challengeon 08-05-2023 Glucose [Mass/Vol] 93 mg/dL 70 - 100 mg/dL [facility] CRP [Mass/Vol] mg/L NINF - 10.0 mg/L [facility] Average glucose Estimated from glycated hemoglobin (Bld) [Mass/Vol] 103 mg/dL [facility] Lactate [Moles/Vol] 0.8 mmol/L 0.7 - 2. 0 mmol/L [facility] Glucose [Mass/Vol] 90 mg/dL 70 - 100 mg/dL [facility] Laboratory - Chemistry and C hemistry - challengeOrdered By: Lilliana Merino on 08-05-2023 Lactate [Moles/Vol] 4.1 mmol/L Critically high 0.7 - 2.0 mmol/L [facility] Laboratory - Drug toxicology Ordered By: Samantha Rao on 08-05-2023 Amphetamines Screen method >1000 ng/mL Ql (U) Negative [facility] Barbiturates Screen method >200 ng/mL Ql (U) Negative [facility] Benzodiazepines Ql (U) Positive [facility] Methadone Screen Ql (U) Negative [facility] Opiates Screen Ql (U) Negative [facility] oxyCODONE Ql (U) Negative [facility] He alth Phencyclidine Ql (U) Negative [facility] Laboratory - Hematology and Cell countson 08-05-2023 HbA1c (Bld) [Mass fraction] 5.2 % NINF - 5.7 % [facility] Comment on above: Normal less than 5.7 % Prediabetes 5.7% to 6.4% Diabetes 6.5% or higher --HgbA1C levels may not be accurate in patients who have renal disease, received recent blood transfusions, are anemic, or who have dyshemoglobinemia. No Panel InformationOrdered By: Ramu Hilario on 08-05-2023 P [place] 58 degrees [employer] Work Phone: HI Interval 160 ms [employer] Work Phone: QRS [place] 41 degrees [employer] Phone: QRSD Interval 97 ms [facility] [employer] Work Phone: QT Interval 395 ms [employer] Work Phone: QTC Interval 442 ms [facility] [employer] Work Phone: T Wave [place] 0 degrees [employer] Phone: [employer] Phone: No Panel Informationon 08-04 Sinus rhythm Normal axis No ST segment elevations No significant changes from previous ECG Electronically Signed On 08-05-2023 23:28:14 EDT by Ramu Steele MD - 08/05/2023 IMPRESSION: Sinus rhythm Normal axis No ST segment elevations No significant changes from previous ECG Electronically Signed On 08-05-2023 23:28:14 EDT by Ramu Hilario [facility] Interpretation and review of laboratory results Normal [facility] Performed by: [facility], [address] [place] [id number] CLIA ID: [id number] [facility] Interpretation and review of laboratory results Normal [facility] Interpretation and review of laboratory results Normal [facility] Performed by: [facility], [address] [place] [id number] CLIA ID: [id number] [facility] Radiology Study observation (narrative) [facility] Radiology Study observation (narrative) [facility] Radiology Study observation (narrative) [facility] No Panel InformationOrdered By: Smaantha Rao on 08-05-2023 COCAINE METAB. SCREEN Negative [facility] The expected value f or all of the drugs listed above is Negative. The following drugs or drug groups have been screened for by Immunoassay at the following thresholds: Amphetamine class (1000 ng/mL) Barbiturates (200 ng/mL) Benzodiazepines (200 ng/mL) Cocaine (300 ng/mL) Methadone (300 ng/mL) Opiates (300 ng/mL) Oxycodone (100 ng/mL) PCP (25 ng/mL) NOTE: These results are for medical treatment only. Analysis performed using non-forensic procedures. POSITIVE results are NOT confirmed by a more specific alternative method unless requested. If confirmation is needed, request confirmation under separate order. [facility] No Panel InformationOrdered By: Lilliana Merino on 08-05-2023 Interpretation and review of laboratory results Abnormal [facility] Nursing Noteon 08-05-2023 Nursing Note Pt [facility] ED around 22:15. RN was notified by NA that the pt's HR was in the 40's. RN began assessment. NA then notified RN that the pt was reporting numbness and tingling in face. NIH performed by RN and by second RN from neuro unit. 6 for the RN 8-9 for the neuro unit RN. Non-urgent rapid notified. At bedside 23:00, NIH of 3-[address] Kang notified. MRI to be scheduled for pt. Normal [facility] URINE CULTUREon 08-05-2023 Bacteria identified Cx Nom (U) URINE CULTURE Reference Normal urogenital valeria present [ S = SUSCEPTIBLE R = RESISTANT I = INTERMEDIATE S-DD = Susceptible-dose dependent NS = Non-susceptible NO = No Interpretation ] Normal [facility] Comment on above: Performed By: #### L [id number] ####Director Of User Experience: WALESKA GUNTER ([phone])[facility] ([address] Urinalysis complete panel (U )Ordered By: Ania Vance on 08-05-2023 Bacteria LM.HPF (Urine sed) [#/Area] Negative Negative /HPF [facility] Bilirubin Ql (U) Negative Negative mg/dL [facility] Clarity (U) Clear Clear [facility] Health Color (U) Light Yellow Lt. Yellow [facility] Epithelial cells.squamous LM.HPF (Urine sed) [#/Area] 6-10 Abnormal [facility] h Glucose Ql (U) Normal Normal (<70) mg/dL [facility] Hemoglobin Ql (U) Negative Negative mg/dL [facility] Interpretation and review of laboratory results Abnormal [facility] Ketones (U) [Mass/Vol] Negative Negat david mg/dL [facility] Leukocyte esterase Test strip Ql (U) 250 Abnormal Negative Barak/uL [facility] Mucus LM.HPF (Urine sed) [#/Area] Few Negative /LPF [facility] Nitrite Ql (U) Negative Negative [facility] th pH (U) 6.0 [pH] 5.0 - 8.0 pH [facility] Protein (U) [Mass/Vol] 10 mg/dL Abnormal Negative [facility] RBC LM.HPF (Urine sed) [#/Area] /[HPF] Abnormal [facility] Specific gravity (U) [Rel density] High 1.005 - 1.030 [facility] Urobilinogen (U) [Mass/Vol] Normal Normal (0-1) mg/dL [facility] WBC LM.HPF (Urine sed) [#/Area] 11-25 Abnormal [facility] Vital signsOrdered By: Ramu Hilario on 08-05-2023 Heart rate 75 /min bpm [facility] [employer] Work Phone: .Urinalysis Microscopic (AO) on 07-09-2023 UA Bacteria Trace Abnormal [facility] ([place]) Comment on above: Performed By: #### U AMICAO, UA #### [place] [address] UA RBC None Seen Normal None Seen [facility] ([place]) Comment on above: Performed By: #### U AMICAO, UA #### [place] [address] UA Squam Epithelial 0-5 Abnormal None Seen [facility] ([place]) Comment on above: Performed By: #### U AMICAO, UA #### [place] [address] UA WBC 0-5 Abnormal None Seen [facility] ([place]) Comment on above: Performed By: #### U AMICAO, UA #### [place] [address] FT3on 07-09-2023 Free T3 [Mass/Vol] 2.36 pg/mL Normal 2.30-4.00 [facility] ([place]) Comment on above: Performed By: #### L IP, CMP, ADIFF, GFR, MDW, CBC, ANEU #### [place] [address] FT4on 07-09-2023 Free T4 [Mass/Vol] 0.96 ng/dL Normal 0.76-1.46 [facility] ([place]) Comment on above: Performed By: #### L IP, CMP, ADIFF, GFR, MDW, CBC, ANEU #### [place] [address] LABORATORYOrdered By: Anita larose on 07-09-2023 Appearance (U) Clear (07/09/23 11:54 AM) Normal AO Auto Urine SS Bacteria LM.HPF (Urine sed) [#/Area] Trace /HPF Invalid Interpretation Code AO Auto Urine SS Bilirubin Ql (U) Negative (07/09/23 11:54 AM) Normal AO Auto Urine SS Color (U) Yellow (07/09/23 11:54 AM) Normal AO Auto Urine SS Glucose Test strip (U) [Mass/Vol] Negative Normal AO Auto Urine SS Hemoglobin Auto test strip (U) [Mass/Vol] Negative (07/09/23 11:54 AM) Normal AO Auto Urine SS Ketones Ql (U) Negative Normal AO Auto Urine SS UA Leuk Est Small *ABN* (07/09/23 11:54 AM) Invalid Interpretation Code AO Auto Urine SS UA Nitrite Negative (07/09/23 11:54 AM) Normal AO Auto Urine SS UA pH 6.0 (07/09/23 11:54 AM) Normal AO Auto Urine SS UA Protein Negative Normal AO Auto Urine SS UA RBC None Seen /HPF Normal AO Auto Urine SS UA Spec Grav >=1.030 *ABN* (07/09/23 11:54 AM) Invalid Interpretation Code AO Auto Urine SS UA Specimen Type Clean Catch (07/09/23 11:54 AM) Normal AO Auto Urine SS UA Squam Epithelial 0-5 /HPF Invalid Interpretation Code AO Auto Urine SS UA Urobilinogen 0.2 E.U./dL Normal AO Auto Urine SS WBC LM.HPF (Urine sed) [#/Area] 0-5 /HPF Invalid Interpretation Code AO Auto Urine SS LABORATORYOrdered By: SYSTEM SYSTEM on 07-09-2023 Free T3 [Mass/Vol] 2.36 pg/mL Normal 2.30 - 4. 00 pg/mL AO ADM SS Free T4 [Mass/Vol] 0.96 ng/dL Normal 0.76 - 1. 46 ng/dL AO ADM SS TSH Qn 0.63 m[IU]/L Normal 0.36 - 3.74 mcIU/mL AO ADM SS TSHon 07-09-2023 TSH Qn 0.63 m[IU]/L Normal 0.36-3.74 [facility] ([place]) Comment on above: Performed By: #### L IP, CMP, ADIFF, GFR, MDW, CBC, ANEU #### [address] [address] UAon 07-09-2023 Color (U) Yellow Normal [facility] ([place]) Comment on above: Performed By: #### U AMICAO, UA #### [address] [address] Glucose (U) [Mass/Vol] Negative Normal Negative [facility] ([place]) Comment on above: Performed By: #### U AMICAO, UA #### [place] [address] Ketones Ql (U) Negative Normal Negative [facility] ([place]) Comment on above: Performed By: #### U AMICAO, UA #### [place] [address] UA Appear Clear Normal Clear [facility] ([place]) Comment on above: Performed By: #### U AMICAO, UA #### [place] [address] UA Blood Negative Normal Negative [facility] ([place]) Comment on above: Performed By: #### U AMICAO, UA #### [place] [address] UA Leuk Est Small Abnormal Negative [facility] ([place]) Comment on above: Performed By: #### U AMICAO, UA #### [place] [address] UA Nitrite Negative Normal Negative [facility] ([place]) Comment on above: Performed By: #### U AMICAO, UA #### [place] [address] UA pH 6.0 Normal 5.0 - 8.0 [facility] ([place]) Comment on above: Performed By: #### U AMICAO, UA #### [place] [address] UA Protein Negative Normal Negative [facility] ([place]) Comment on above: Performed By: #### U AMICAO, UA #### [place] [address] UA Spec Grav >=1.030 Abnormal 1.015-1.025 [facility] ([place]) Comment on above: Performed By: #### U AMICAO, UA #### [place] [address] UA Specimen Type Clean Catch Normal [facility] ([place]) Comment on above: Performed By: #### U AMICAO, UA #### [place] [address] [place], [place] [address] UA Urobilinogen 0.2 E.U./dL Normal 0.2-1.0 [facility] ([place]) Comment on above: Performed By: #### U AMICAO, UA #### [place] [address] [place], [place] [address] Urobilinogen (U) [Mass/Vol] Negative Normal Negative [facility] ([place]) Comment on above: Performed By: #### U AMICAO, UA #### [place] [address] [place], [place] [address] No Panel Informationon 07-01 Culture Urine 10,000 - 50,000 cfu/ ml Multiple bacterial morphotypes present. Probable Contamination. Suggest recollection if clinically indicated. [facility] Work Phone: [id number] 06-24-2023 Vitamin B1 Whl Bld 114.0 nmol/L Normal 66.5-200.0 [facility] ([place]) Comment on above: Result Comment: This test was developed and its performance characteristics determined by [employer]. It has not been cleared or approved by the Food and Drug Administration. Performed At: [address] [id number] Neo Ji MD Ph:[phone] Performed By: #### L IP, CMP, ADIFF, GFR, MDW, CBC, ANEU #### [address] [address] ZINCon 06-19-2023 Zinc Lvl 76 UG/DL Normal 44-115 [facility] ([place]) Comment on above: Result Comment: This test was developed and its performance characteristics determined by [employer]. It has not been cleared or approved by the Food and Drug Administration. Detection Limit = 5 Performed At: [address] [id number] Neo Ji MD Ph:[phone] Performed By: #### L IP, CMP, ADIFF, GFR, MDW, CBC, ANEU #### [address] [address] .Auto Diffon 06-17-2023 Basophil, Absolute 0.0 10 3/mcL Normal 0.0-0.2 [facility] ([place]) Comment on above: Performed By: #### L IP, CMP, ADIFF, GFR, MDW, CBC, ANEU #### [address] [address] Basophils/100 WBC (Bld) 0.4 % Normal 0.0-2.5 [facility] ([place]) Comment on above: Performed By: #### L IP, CMP, ADIFF, GFR, MDW, CBC, ANEU #### [address] [address] Eosinophil, Absolute 0.1 10 3/mcL Normal 0.0-0.4 [facility] ([place]) Comment on above: Performed By: #### L IP, CMP, ADIFF, GFR, MDW, CBC, ANEU #### [address] [address] Eosinophils/100 WBC (Bld) 1.4 % Normal 0.0-7.0 [facility] ([place]) Comment on above: Performed By: #### L IP, CMP, ADIFF, GFR, MDW, CBC, ANEU #### [address] [address] Lymphocyte, Absolute 2.3 10 3/mcL Normal 0.8-3.9 [facility] ([place]) Comment on above: Performed By: #### L IP, CMP, ADIFF, GFR, MDW, CBC, ANEU #### [address] [address] Lymphocytes/100 WBC (Bld) 31.5 % Normal 10.0-50.0 [facility] ([place]) Comment on above: Performed By: #### L IP, CMP, ADIFF, GFR, MDW, CBC, ANEU #### [address] [address] Monocyte, Absolute 0.5 10 3/mcL Normal 0.2-1.0 [facility] ([place]) Comment on above: Performed By: #### L IP, CMP, ADIFF, GFR, MDW, CBC, ANEU #### [address] [address] Monocytes/100 WBC (Bld) 6.6 % Normal 1.7-13.0 [facility] ([place]) Comment on above: Performed By: #### L IP, CMP, ADIFF, GFR, MDW, CBC, ANEU #### [address] [address] Neutrophils/100 WBC (Bld) 60.1 % Normal 37.0-80.0 [facility] ([place]) Comment on above: Performed By: #### L IP, CMP, ADIFF, GFR, MDW, CBC, ANEU #### [address] [address] .GFRon 06-17-2023 GFR Non- 107 ml/min/1.73sqm Normal [facility] ([place]) Comment on above: Result Comment: GFR Population mean for , Non- Americans Ages 20-29 = 116 mL/min/1.73 sq.m. Ages 30-39 = 107 mL/min/1.73 sq.m. Ages 40-49 = 99 mL/min/1.73 sq.m. Ages 50-59 = 93 mL/min/1.73 sq.m. Ages 60-69 = 85 mL/min/1.73 sq.m. Ages 70+ = 75 mL/min/1.73 sq.m. Chronic Kidney Disease: Less than 60 mL/min/1.73 square meters End Stage Renal Disease: Less than 15 mL/min/1.73 square meters Performed By: #### L IP, CMP, ADIFF, GFR, MDW, CBC, ANEU #### [address] [address] GFR 129 ml/min/1.73sqm Normal [facility] ([place]) Comment on above: Result Comment: GFR Population mean for , Non- Americans Ages 20-29 = 116 mL/min/1.73 sq.m. Ages 30-39 = 107 mL/min/1.73 sq.m. Ages 40-49 = 99 mL/min/1.73 sq.m. Ages 50-59 = 93 mL/min/1.73 sq.m. Ages 60-69 = 85 mL/min/1.73 sq.m. Ages 70+ = 75 mL/min/1.73 sq.m. Chronic Kidney Disease: Less than 60 mL/min/1.73 square meters End Stage Renal Disease: Less than 15 mL/min/1.73 square meters Performed By: #### L IP, CMP, ADIFF, GFR, MDW, CBC, ANEU #### [address] [address] .NEUABSon 06-17-2023 Neutrophil, Absolute 4.4 10 3/mcL Normal 2.9-6.2 [facility] ([place]) Comment on above: Performed By: #### L IP, CMP, ADIFF, GFR, MDW, CBC, ANEU #### [place] [address] A1Con 06-17-2023 HbA1c (Bld) [Mass fraction] 5.5 % Normal 4.3-6.4 [facility] ([place]) Comment on above: Performed By: #### L IP, CMP, ADIFF, GFR, MDW, CBC, ANEU #### [address] [address] B12on 06-17-2023 Cobalamin (Vitamin B12) [Mass/Vol] 661 pg/mL Normal 211-911 [facility] ([place]) Comment on above: Performed By: #### L IP, CMP, ADIFF, GFR, MDW, CBC, ANEU #### [address] [address] CBCon 06-17-2023 Erythrocyte distribution width (RBC) [Ratio] 13.6 % Normal 11.5-14.5 [facility] ([place]) Comment on above: Performed By: #### L IP, CMP, ADIFF, GFR, MDW, CBC, ANEU #### [address] [address] Hematocrit (Bld) [Volume fraction] 37.7 % Normal 37.0-47.0 [facility] ([place]) Comment on above: Performed By: #### L IP, CMP, ADIFF, GFR, MDW, CBC, ANEU #### [address] [address] Hgb 12.9 G/dL Normal 12.0-16.0 [facility] ([place]) Comment on above: Performed By: #### L IP, CMP, ADIFF, GFR, MDW, CBC, ANEU #### [address] [address] MCH (RBC) [Entitic mass] 30.8 pg Normal 27.0-31.2 [facility] ([place]) Comment on above: Performed By: #### L IP, CMP, ADIFF, GFR, MDW, CBC, ANEU #### [address] [address] MCHC 34.3 G/dL Normal 33.0-37.0 [facility] ([place]) Comment on above: Performed By: #### L IP, CMP, ADIFF, GFR, MDW, CBC, ANEU #### [address] [address] MCV (RBC) [Entitic vol] 89.9 fL Normal 80.0-94.0 [facility] ([place]) Comment on above: Performed By: #### L IP, CMP, ADIFF, GFR, MDW, CBC, ANEU #### [address] [address] Platelet 291 10 3/mcL Normal 130-400 [facility] ([place]) Comment on above: Performed By: #### L IP, CMP, ADIFF, GFR, MDW, CBC, ANEU #### [address] [address] Platelet mean volume (Bld) [Entitic vol] 8.7 fL Normal 7.4-10.4 [facility] ([place]) Comment on above: Performed By: #### L IP, CMP, ADIFF, GFR, MDW, CBC, ANEU #### [address] [address] RBC 4.19 10 6/mcL Low 4.20-5.40 [facility] ([place]) Comment on above: Performed By: #### L IP, CMP, ADIFF, GFR, MDW, CBC, ANEU #### [address] [address] WBC 7.3 10 3/mcL Normal 4.6-10.8 [facility] ([place]) Comment on above: Performed By: #### L IP, CMP, ADIFF, GFR, MDW, CBC, ANEU #### [address] [address] CMPon 06-17-2023 Albumin Level 3.9 G/dL Normal 3.5-5.0 [facility] ([place]) Comment on above: Performed By: #### L IP, CMP, ADIFF, GFR, MDW, CBC, ANEU #### [address] [address] Albumin/Globulin [Mass ratio] 1.3 {ratio} Normal 1.1-2.5 [facility] ([place]) Comment on above: Performed By: #### L IP, CMP, ADIFF, GFR, MDW, CBC, ANEU #### [address] [address] ALP [Catalytic activity/Vol] 119 U/L Normal 40-135 [facility] ([place]) Comment on above: Performed By: #### L IP, CMP, ADIFF, GFR, MDW, CBC, ANEU #### [address] [address] ALT [Catalytic activity/Vol] 43 U/L Normal 14-59 [facility] ([place]) Comment on above: Performed By: #### L IP, CMP, ADIFF, GFR, MDW, CBC, ANEU #### [address] [address] AST [Catalytic activity/Vol] 29 U/L Normal 10-40 [facility] ([place]) Comment on above: Performed By: #### L IP, CMP, ADIFF, GFR, MDW, CBC, ANEU #### [address] [address] Bili Total 0.5 mg/dL Normal 0.2-1.0 [facility] ([place]) Comment on above: Result Comment: Use of this assay is not recommended for patients undergoing treatment with eltrombopag due to the potential for falsely elevated results. Performed By: #### L IP, CMP, ADIFF, GFR, MDW, CBC, ANEU #### [address] [address] BUN/Creatinine Ratio 21 ratio Normal 7-27 [facility] ([place]) Comment on above: Performed By: #### L IP, CMP, ADIFF, GFR, MDW, CBC, ANEU #### [address] [address] Calcium [Mass/Vol] 8.8 mg/dL Normal 8.4-10.2 [facility] ([place]) Comment on above: Performed By: #### L IP, CMP, ADIFF, GFR, MDW, CBC, ANEU #### [address] [address] Chloride [Moles/Vol] 103 mmol/L Normal 98-107 [facility] ([place]) Comment on above: Performed By: #### L IP, CMP, ADIFF, GFR, MDW, CBC, ANEU #### [address] [address] CO2 [Moles/Vol] 29 mmol/L Normal 22-29 [facility] ([place]) Comment on above: Performed By: #### L IP, CMP, ADIFF, GFR, MDW, CBC, ANEU #### [address] [address] Creatinine [Mass/Vol] 0.58 mg/dL Normal 0.55-1.02 [facility] ([place]) Comment on above: Performed By: #### L IP, CMP, ADIFF, GFR, MDW, CBC, ANEU #### [address] [address] Electrolyte Balance 6.0 mEq/L Normal 4.0-15.0 [facility] ([place]) Comment on above: Performed By: #### L IP, CMP, ADIFF, GFR, MDW, CBC, ANEU #### [address] [address] Globulin 2.9 G/dL Normal [facility] ([place]) Comment on above: Performed By: #### L IP, CMP, ADIFF, GFR, MDW, CBC, ANEU #### [address] [address] Glucose [Mass/Vol] 92 mg/dL Normal 70-105 [facility] ([place]) Comment on above: Performed By: #### L IP, CMP, ADIFF, GFR, MDW, CBC, ANEU #### [address] [address] Potassium [Moles/Vol] 4.3 mmol/L Normal 3.5-5.1 [facility] ([place]) Comment on above: Performed By: #### L IP, CMP, ADIFF, GFR, MDW, CBC, ANEU #### [address] [address] Sodium [Moles/Vol] 138 mmol/L Normal 136-145 [facility] ([place]) Comment on above: Performed By: #### L IP, CMP, ADIFF, GFR, MDW, CBC, ANEU #### [address] [address] Total Protein 6.8 G/dL Normal 6.4-8.2 [facility] ([place]) Comment on above: Performed By: #### L IP, CMP, ADIFF, GFR, MDW, CBC, ANEU #### [address] [address] Urea nitrogen [Mass/Vol] 12 mg/dL Normal 7-18 [facility] ([place]) Comment on above: Performed By: #### L IP, CMP, ADIFF, GFR, MDW, CBC, ANEU #### [address] [address] [place] 06-17-2023 Ferritin [Mass/Vol] 40.0 ng/mL Normal 8.0-252.0 [facility] ([place]) Comment on above: Performed By: #### L IP, CMP, ADIFF, GFR, MDW, CBC, ANEU #### [address] [address] FOLon 06-17-2023 Folate 23.67 ng/mL Normal 5.38-24.00 [facility] ([place]) Comment on above: Performed By: #### L IP, CMP, ADIFF, GFR, MDW, CBC, ANEU #### [place] [address] [place], [place] [address] FT4on 06-17-2023 Free T4 [Mass/Vol] 0.87 ng/dL Normal 0.76-1.46 [facility] ([place]) Comment on above: Performed By: #### L IP, CMP, ADIFF, GFR, MDW, CBC, ANEU #### [address] [address] LABORATORYOrdered By: Brittney Aponte on 06-17-2023 Albumin DL <= 20 mg/L (U) [Mass/Vol] 2222 mcg/dL Invalid Interpretation Code AO ADM SS Albumin/Creatinine DL <= 20 mg/L (U) [Mass ratio] 9 mcg/mg Normal 0 - 30 mcg/mg AO ADM SS Creatinine (U) [Mass/Vol] 246.4 mg/dL High 28.0 - 117.0 mg/dL AO ADM SS Cholesterol [Mass/Vol] 111 mg/dL Normal 0 - 2 00 mg/dL AO ADM SS Comment on above: Interpretive Data: C holesterol Reference Interval: Less than 200 Desirable 200-239 Borderline high risk 240 and above High risk Cholesterol in HDL [Mass/Vol] 58 mg/dL Normal 40 - 60 mg/dL AO ADM SS Cholesterol in LDL [Mass/Vol] 34 mg/dL Normal 0 - 130 mg/dL AO ADM SS Triglyceride [Mass/Vol] 97 mg/dL Normal 0 - 150 mg/dL AO ADM SS Comment on above: Interpretive Data: T riglyceride Reference Interval: Less than 150 Normal 150-199 Borderline high risk 200-499 High risk 500 or higher Very high risk LABORATORYOrdered By: SYSTEM SYSTEM on 06-17-2023 25-hydroxyvitamin D3 [Mass/Vol] 35.2 ng/mL Invalid Interpretation Code AO ADM SS Comment on above: Interpretive Data: I nterpretive Values Based on Total 25(OH) Vitamin D: Deficient <20 ng/mL Insufficient 20 - <30 ng/mL Sufficient 30-100 ng/mL Albumin BCP dye [Mass/Vol] 3.9 G/dL Normal 3.5 - 5.0 G/dL AO ADM SS Albumin/Globulin [Mass ratio] 1.3 {ratio} Normal 1.1 - 2.5 ratio AO ADM SS ALP [Catalytic activity/Vol] 119 U/L Normal 40 - 135 U/L AO ADM SS ALT With P-5'-P [Catalytic activity/Vol] 43 U/L Normal 14 - 59 U/L AO ADM SS AST With P-5'-P [Catalytic activity/Vol] 29 U/L Normal 10 - 40 U/L AO ADM SS Basophil, Absolute 0.0 103/mcL Normal 0.0 - 0.2 10^3/mcL AO Workflow SS Basophils/100 WBC (Bld) 0.4 % Normal 0.0 - 2.5 % AO Workflow SS Bilirubin [Mass/Vol] 0.5 mg/dL Normal 0.2 - 1 .0 mg/dL AO ADM SS Comment on above: Interpretive Data: U se of this assay is not recommended for patients undergoing treatment with eltrombopag due to the potential for falsely elevated results. Calcium [Mass/Vol] 8.8 mg/dL Normal 8.4 - 10. 2 mg/dL AO ADM SS Chloride [Moles/Vol] 103 mmol/L Normal 98 - 10 7 mmol/L AO ADM SS CO2 [Moles/Vol] 29 mmol/L Normal 22 - 29 mmol/L AO ADM SS Cobalamin (Vitamin B12) [Mass/Vol] 661 pg/mL Normal 211 - 911 pg/mL AH ADM SS Creatinine [Mass/Vol] 0.58 mg/dL Normal 0.55 - 1.02 mg/dL AO ADM SS Electrolyte Balance 6.0 mEq/L Normal 4.0 - 15 .0 mEq/L AO ADM SS Eosinophil, Absolute 0.1 103/mcL Normal 0.0 - 0 .4 10^3/mcL AO Workflow SS Eosinophils/100 WBC (Bld) 1.4 % Normal 0.0 - 7.0 % AO Workflow SS Erythrocyte distribution width (RBC) [Ratio] 13.6 % Normal 11.5 - 14.5 % AO Workflow SS Ferritin [Mass/Vol] 40.0 ng/mL Normal 8.0 - 25 2.0 ng/mL AO ADM SS Folate [Mass/Vol] 23.67 ng/mL Normal 5.38 - 24.00 ng/mL AH ADM SS Free T4 [Mass/Vol] 0.87 ng/dL Normal 0.76 - 1. 46 ng/dL AO ADM SS GFR/1.73 sq M.predicted among blacks MDRD (S/P/Bld) [Vol rate/Area] 129 ml/min/1.73sqm Invalid Interpretation Code AO Chemistry S Comment on above: Interpretive Data: GFR Population mean for , Non- Americans Ages 20-29 = 116 mL/min/1.73 sq.m. Ages 30-39 = 107 mL/min/1.73 sq.m. Ages 40-49 = 99 mL/min/1.73 sq.m. Ages 50-59 = 93 mL/min/1.73 sq.m. Ages 60-69 = 85 mL/min/1.73 sq.m. Ages 70+ = 75 mL/min/1.73 sq.m. Chronic Kidney Disease: Less than 60 mL/min/1.73 square meters End Stage Renal Disease: Less than 15 mL/min/1.73 square meters GFR/1.73 sq M.predicted among non-blacks MDRD (S/P/Bld) [Vol rate/Area] 107 ml/min/1.73sqm Invalid Interpretation Code AO Chemistry S Comment on above: Interpretive Data: GFR Population mean for , Non- Americans Ages 20-29 = 116 mL/min/1.73 sq.m. Ages 30-39 = 107 mL/min/1.73 sq.m. Ages 40-49 = 99 mL/min/1.73 sq.m. Ages 50-59 = 93 mL/min/1.73 sq.m. Ages 60-69 = 85 mL/min/1.73 sq.m. Ages 70+ = 75 mL/min/1.73 sq.m. Chronic Kidney Disease: Less than 60 mL/min/1.73 square meters End Stage Renal Disease: Less than 15 mL/min/1.73 square meters Globulin 2.9 G/dL Invalid Interpretation Code AO ADM SS Glucose [Mass/Vol] 92 mg/dL Normal 70 - 105 mg/dL AO ADM SS HbA1c (Bld) [Mass fraction] 5.5 % Normal 4.3 - 6.4 % AO ADM SS Hematocrit (Bld) [Volume fraction] 37.7 % Normal 37.0 - 47.0 % AO Workflow SS Hemoglobin (Bld) [Mass/Vol] 12.9 G/dL Normal 12.0 - 16.0 G/dL AO Workflow SS Lymphocyte, Absolute 2.3 103/mcL Normal 0.8 - 3 .9 10^3/mcL AO Workflow SS Lymphocytes/100 WBC (Bld) 31.5 % Normal 10.0 - 50.0 % AO Workflow SS Magnesium [Mass/Vol] 1.9 mg/dL Normal 1.8 - 2 .4 mg/dL AO ADM SS MCH (RBC) [Entitic mass] 30.8 pg Normal 27.0 - 31.2 pg AO Workflow SS MCHC 34.3 G/dL Normal 33.0 - 37.0 G/dL AO Workflow SS MCV (RBC) [Entitic vol] 89.9 fL Normal 80.0 - 94.0 fL AO Workflow SS Monocyte, Absolute 0.5 103/mcL Normal 0.2 - 1.0 10^3/mcL AO Workflow SS Monocytes/100 WBC (Bld) 6.6 % Normal 1.7 - 13.0 % AO Workflow SS Neutrophil, Absolute 4.4 103/mcL Normal 2.9 - 6 .2 10^3/mcL AO Workflow SS Neutrophils/100 WBC (Bld) 60.1 % Normal 37.0 - 80.0 % AO Workflow SS Platelet mean volume (Bld) [Entitic vol] 8.7 fL Normal 7.4 - 10.4 fL AO Workflow SS Platelets (Bld) [#/Vol] 291 103/mcL Normal 130 - 400 10^3/mcL AO Workflow SS Potassium [Moles/Vol] 4.3 mmol/L Normal 3.5 - 5.1 mmol/L AO ADM SS Protein [Mass/Vol] 6.8 G/dL Normal 6.4 - 8.2 G/dL AO ADM SS RBC (Bld) [#/Vol] 4.19 106/mcL Low 4.20 - 5.4 0 10^6/mcL AO Workflow SS Sodium [Moles/Vol] 138 mmol/L Normal 136 - 145 mmol/L AO ADM SS TSH Qn 3.89 m[IU]/L High 0.36 - 3.74 mcIU/mL AO ADM SS Urea nitrogen [Mass/Vol] 12 mg/dL Normal 7 - 18 mg/dL AO ADM SS Urea nitrogen/Creatinine [Mass ratio] 21 ratio Normal 7 - 27 ratio AO ADM SS WBC (Bld) [#/Vol] 7.3 103/mcL Normal 4.6 - 10.8 10^3/mcL AO Workflow SS LIPIDon 06-17-2023 Cholesterol [Mass/Vol] 111 mg/dL Normal 0-200 [facility] ([place]) Comment on above: Result Comment: Chol esterol Reference Interval: Less than 200 Desirable 200-239 Borderline high risk 240 and above High risk Performed By: #### L IP, CMP, ADIFF, GFR, MDW, CBC, ANEU #### [address] [address] Cholesterol in HDL [Mass/Vol] 58 mg/dL Normal 40-60 [facility] ([place]) Comment on above: Performed By: #### L IP, CMP, ADIFF, GFR, MDW, CBC, ANEU #### [address] [address] Cholesterol in LDL [Mass/Vol] 34 mg/dL Normal 0-130 [facility] ([place]) Comment on above: Performed By: #### L IP, CMP, ADIFF, GFR, MDW, CBC, ANEU #### [address] [address] Triglyceride [Mass/Vol] 97 mg/dL Normal 0-150 [facility] ([place]) Comment on above: Result Comment: Trig lyceride Reference Interval: Less than 150 Normal 150-199 Borderline high risk 200-499 High risk 500 or higher Very high risk Performed By: #### L IP, CMP, ADIFF, GFR, MDW, CBC, ANEU #### [address] [address] MALBRon 06-17-2023 U Creatinine 246.4 mg/dL High 28.0-117.0 [facility] ([place]) Comment on above: Performed By: #### L IP, CMP, ADIFF, GFR, MDW, CBC, ANEU #### [address] [address] U Microalb 2222 mcg/dL Normal [facility] ([place]) Comment on above: Performed By: #### L IP, CMP, ADIFF, GFR, MDW, CBC, ANEU #### [place] [address] [place], [place] [address] U Ratio Alb/Cre 9 mcg/mg Normal 0-30 [facility] ([place]) Comment on above: Performed By: #### L IP, CMP, ADIFF, GFR, MDW, CBC, ANEU #### [address] [address] MGon 06-17-2023 Magnesium [Mass/Vol] 1.9 mg/dL Normal 1.8-2.4 [facility] ([place]) Comment on above: Performed By: #### L IP, CMP, ADIFF, GFR, MDW, CBC, ANEU #### [address] [address] MRI MRCPon 06-17-2023 MRI MRCP ORIGINAL EXAMINATION: MRCP 06/17/2023 8:10 am TECHNIQUE: After initial T2 axial and coronal images, thick slab, thin slab and 3D coronal MRCP sequences were obtained without the administration of intravenous contrast. MIP images are provided for review. COMPARISON: CT abdomen pelvis 04/02/2023, MRCP 04/24/2022, CT abdomen pelvis 03/30/2020, MRI abdomen 04/11/2020 HISTORY: ORDERING SYSTEM PROVIDED HISTORY: Reason for Exam: follow up pancreatic cyst FINDINGS: There is a simple appearing T2 hyperintense cystic pancreatic head lesion which measures about 1.8 x 1.4 cm (image 19 of series 5). There is no soft tissue component or septation. The lesion is overall not significantly different from the comparison MRI dated 04/11/2020. The there is no definite continuity between the lesion and pancreatic duct. The pancreatic duct is not dilated. There are no other cystic pancreatic lesions. Findings compatible with pancreas divisum. No intrahepatic or extrahepatic biliary ductal dilatation. Incidental right posterior sectoral duct. The gallbladder surgically absent. There are numerous bilateral parapelvic cysts. IMPRESSION: Stable 1.8 cm simple appearing cystic pancreatic head lesion, most likely representing a benign or low-grade cystic neoplasm. There are no suspicious features. Given the stability since 2020, a follow-up MRCP in 2-3 years is recommended. Pancreas divisum. I have personally reviewed the images of this examination and agree with the resident's findings and interpretation. Interpreted by: Emma Corea MD Preliminary Report By: Tika York Electronically signed By Emma Corea MD Dictated Date: 06/17/2023 8:51:03 AM Prelim Date: 06/17/2023 11:46:23 AM Sign Date: 06/17/2023 11:46:23 AM Ordering Provider: EMMA Quinn [facility]) TSHon 06-17-2023 TSH Qn 3.89 m[IU]/L High 0.36-3.74 [facility]) Comment on above: Performed By: #### L IP, CMP, ADIFF, GFR, MDW, CBC, ANEU #### [address] [address] VIDHon 06-17-2023 Vit. D 25-Hydroxy 35.2 ng/mL Normal [facility] Comment on above: Result Comment: Inte rpretive Values Based on Total 25(OH) Vitamin D: Deficient <20 ng/mL Insufficient 20 - <30 ng/mL Sufficient 30-100 ng/mL Performed By: #### L IP, CMP, ADIFF, GFR, MDW, CBC, ANEU #### [place] [address] MAGNESIUMon 06-12-2023 Magnesium [Mass/Vol] 2.2 mg/dL Normal 1.6-2.3 [facility] Comment on above: Performed By: #### L [id number] ####Director Of User Experience: WALESKA GUNTER ([phone])[facility] ([address] Magnesiumon 06-12-2023 Magnesium [Mass/Vol] 2.2 mg/dL 1.6 - 2 .3 mg/dL [facility] Magnesium [Mass/Vol]on 06-11 Interpretation and review of laboratory results Normal [facility] 36on 06-09-2023 36 Name of caller: Dinora hanson Contact phone number: [phone] Relationship to Patient: patient Provider: last seen Yasir Practice: [facility] Chief Complaint/Reason for Call: Unable to make apt today at 8am. has the car. Mixed up that she had to come to apt for the machine, thought it was coming to the house. Able to come in later today or tomorrow. Will await return call to [facility] apt. Patient advised that office/PCP has 24-48 business hours to return their call: Yes Normal [facility] Office Visiton 05-27-2023 Follow-up visit [id number] NormaDinora margie 1965 F Date Provider Department Center 05/27/2023 [id number] [facility] [address] Family History Problem Relation Age of Onset Hypertension Brother Heart disease Mother Hyperlipidemia Mother COPD Mother Bleeding Prob Mother Diabetes Mother Heart disease Father Hypertension Paternal Grandmother Hypertension Mother Colon cancer Neg Hx Diabetes Paternal Grandfather Hypertension Paternal Grandfather Family Status - Relation Status Age at Brother Mother Alive Father Paternal Grandmother Neg Hx Paternal Grandfather Level of Service:64397 HI OFFICE/OUTPATIENT ESTABLISHED MOD MDM 30 MIN Reason for Visit and Comments: Dizziness [[id number]] - A little Normal [facility] PATINSon 05-27-2023 PATINS Omron upper arm bloo d pressure cuff. This is the recommended brand Please begin taking blood pressures at home daily -Prior to checking blood pressure sit and rest quietly for 5 minutes. Sit with feet flat on the ground and back against chair. -take blood pressure 1-2 hours after medications or if symptoms -Keep BP log with date time and heart rate -Bring machine and log to next -Call office if concerns. Normal [facility] Progress Noteon 05-27-2023 Progress Note [facility] [address] [facility] [address] Dept: [phone] Dept Visit type: Established : 1965 Reason for Visit: Dizziness (A little) Assessment and Plan Syncope and collapse Tingling of face -No recurrent syncope since discharge. Numbness and tingling of face persists. She will follow up with neurology as scheduled. Hydration and slow position changes.Will obtain labs for reversible causes. Will obtain event monitor to screen for further cardiac screening. - Cardiac event monitor (30 days) - Magnesium CAD dx by CT Coronary CT:Mild nonobstructive coronary atherosclerosis. The coronary calcium score is 76 (Agatston method). Hyperlipidemia -Stable. Continue ASA. Statin on hold due to concerns with memory while on this as well as Musculoskeletal pain. She will follow up with neurology. Would need alternative statin vs PCSK9i in the future. Concern statin contributed to recent complaints. Essential hypertension -Controlled. Continue losartan Concern for log COVID -Continue to monitor Follow up for Follow up with Dr. Almazan 8 weeks . Subjective HPI Ayala Aranda is a 58 year old female seen today for hospital follow up. She has history hypertension, hyperlipidemia, bariatric surgery 2019 (roughly 150 lb wt loss). She also has familiy history of premature heart disease in both parents Patient recently hospitalized at [facility] due to syncopal episodes. She reports recent illness a few months prior as well as medications changes where she was started on high intensity statin and Zoloft was added. Shortly after those changes she noticed intermittent disorientation/confusio n She felt like she could not think straight and also had trouble with memory and had syncopal event. Episode of syncope witnessed by EMS. Cardiology was consulted and felt symptoms sounded more neurological. While hospitalized there was complaint of intermittent precordial and substernal chest burning. She denied any previous anginal symptoms. Given her risk factors a coronary CT angiogram to rule out plaque disease and calcifications was ordered and revealed Mild nonobstructive coronary atherosclerosis. The coronary calcium score is 76 (Agatston method). Concern for long COVID though she was not tested for COVID. Statin was stopped. CT head unremarkable. Echo with EF 59%. No significant valve disease. Presents today feeling ok. She continues with low energy. No recurrent syncopal episodes since discharge. She has facial tingling and feels face is numb in certain areas. This has been ongoing since prior hospitalization. She tells me she had a home visit nurse and was told Bp was low but cannot recall actual reading. Overall she feels memory issues have improved somewhat since stopping statin. Musculoskeletal pain has also improved since stopping statin. She continues with intermittent SOB with exertion. She reports lightheadedness and dizziness with quick position changes. She has rare palpitations. She has no chest pain, orthopnea or PND. She lives at home with and children. Does not work. She has neurology follow up on 06/01 Review of Systems Constitutional: Positive for fatigue. Negative for activity change, chills, diaphoresis and fever. HENT: Negative for nosebleeds and trouble swallowing. Eyes: Negative for discharge and visual disturbance. Respiratory: Positive for shortness of breath (with exertion at times). Negative for apnea, cough, chest tightness and wheezing. Cardiovascular: Positive for palpitations (at times. once in a blue escalante). Negative for chest pain and leg swelling. Gastrointestinal: Negative for abdominal distention, abdominal pain, blood in stool, diarrhea, nausea and vomiting. Endocrine: Negative for cold intolerance and heat intolerance. Genitourinary: Negative for hematuria. Musculoskeletal: Positive for arthralgias (has improved with stopping statin). Negative for gait problem and myalgias. Skin: Negative for color change and rash. Neurological: Positive for dizziness (with quick position changes), syncope (none since discharge), light-headedness (with quick position change) and numbness (face). Negative for seizures, facial asymmetry, speech difficulty, weakness and headaches. Tingling to face Hematological: Bruises/bleeds easily. Psychiatric/Behavioral: Negative for dysphoric mood. Allergies Allergen Reactions Diphenhydramine Morphine Vancomycin Outpatient Medications Prior to Visit Medication Sig Dispense Refill aspirin 81 MG EC tablet Take 1 tablet (81 mg) by mouth daily. 30 tablet 11 Biotin 5 MG tablet dispersible Take 5,000 mcg by mouth in the morning. cholecalciferol (Vitamin D-3) 50 MCG (2000 UT) capsule Take 2,000 Units by mouth in the morning. cyanocobalamin (Vitamin B-12) 1000 MCG tablet Take 1,000 mcg by mouth in the morning. Docusate Sodium (DSS) 100 MG capsu (more content not included)... Normal [facility] 36on 05-19-2023 36 05/26 at 10:30am wit h SO only appt we had left patient is aware and is fine with that Normal [facility] 36 Please contact pt to arrange hospital follow-up in 2-[address] Tomas or his VAN. Thanks [facility] CARECOORDon 05-19-2023 CARELU Patient declined absentee jennifer for voting today. [facility]OORD TCC spoke with pt in regards to her stay here at [facility] being out of network. Pt called her insurance and verified that [facility] is in network. Apparently this hospital stay is being billed under her secondary insurance and needs to be billed to her primary insurance-[employer]. T[facility] notified [facility]. Pt's insurance has been updated. Pt will not need to be moved to another facility. TCC to follow and assist as needed. [facility] CT CORONARY CTA WITH PROV FF R-CTon 05-19-2023 CT CORONARY CTA WITH PROV FFR-CT Patient Name: AYALA ARANDA : 1965 Exam Date/Time: 05/19/2023 09:25 Procedure: CT CORONARY CTA WITH PROV FFR-CT Ordering Provider: TOMAS OTFRIED Reason For Exam: Chest pain/anginal equiv, ECGs and troponins normal CORONARY CTA CLINICAL INDICATION: Chest pain. Study performed to evaluate for coronary artery disease. Computed tomography of the heart and surrounding structures was performed using a Gloria multidetector scanner with cardiac gating and dose reduction techniques. Dose reduction was employed with automated exposure control. Images were reconstructed and analyzed on an advanced post-processing 3D workstation. Sublingual nitroglycerin was administered for coronary dilation. Oral metoprolol was taken in advance for heart rate optimization. See nursing notes for additional details of medications given in the CT department. Contrast: 75 mL Total DLP = 282 mGy-cm Study Quality: Good. Extracardiac Findings: The visualized portions of the chest wall, lungs, and mediastinum are unremarkable. Cardiac Chambers and Valves: The pericardium is unremarkable. The right ventricle is normal in size. The left ventricle is normal in size. The right atrium is normal in size. The left atrium is normal in size. The left atrial appendage is normal in appearance. The mitral valve is unremarkable by CT appearance. The aortic valve is trileaflet. Great Vessels: The ascending aorta is normal in size. The aortic arch is not included in the present study. The included portions of the descending thoracic aorta are normal in size. Coronary Anatomy: The coronaries have normal origins. There is a pattern of right coronary dominance. Left Main Trunk: This is a large vessel that bifurcates normally into the LAD and LCx. There is mixed calcified and noncalcified plaque at the ostium of the left main trunk resulting in mild luminal narrowing. Left Anterior Descending Artery: This is a large vessel that extends to the apex after providing a single large diagonal branch. There is a small focus of calcified and noncalcified plaque at the origin of the diagonal branch, resulting in mild luminal irregularity. Left Circumflex Artery: This is a large non-dominant vessel that gives rise to 2 obtuse marginal branches. There is no atherosclerotic plaque or luminal stenosis within the circumflex artery or its branches. Right Coronary Artery: This is a large dominant vessel. It gives rise to a medium-sized PDA and small posterior ventricular branch. There is no atherosclerotic plaque or luminal stenosis within the right coronary artery or its branches. IMPRESSION: Mild nonobstructive coronary atherosclerosis. The coronary calcium score is 76 (Agatston method). Normal cardiac chambers. FFR-CT OPTION: FFR-CT is not requested for this study. CAD-RADS 2 / P1 Recommendation: Preventive pharmacotherapy and risk factor modification. Consider non-atherosclerotic causes of symptoms. Report Dictated on Electronically Signed By: Helder Oro MD Electronically Signed Date/Time: 05/19/2023 11:03 AM EDT [facility] CTA Heart and Coronary arter ies WO and W contrast Will 05-19-2023 Mild nonobstructive coronary atherosclerosis. The coronary calcium score is 76 (Agatston method). Normal cardiac chambers. FFR-CT OPTION: FFR-CT is not requested for this study. CAD-RADS 2 / P1 Recommendation: Preventive pharmacotherapy and risk factor modification. Consider non-atherosclerotic causes of symptoms. Report Dictated on Electronically Signed By: Helder Oro MD Electronically Signed Date/Time: 05/19/2023 11:03 AM [facility] [employer] Patient Name: AYALA ARANDA : 1965 [facility]#: [id number] Exam Date/Time: 05/19/2023 09:25 Procedure: CT CORONARY CTA WITH PROV FFR-CT Ordering Provider: TOMAS OTFRIED Reason For Exam: Chest pain/anginal equiv, ECGs and troponins normal CORONARY CTA CLINICAL INDICATION: Chest pain. Study performed to evaluate for coronary artery disease. Computed tomography of the heart and surrounding structures was performed using a Sycamore multidetector scanner with cardiac gating and dose reduction techniques. Dose reduction was employed with automated exposure control. Images were reconstructed and analyzed on an advanced post-processing 3D workstation. Sublingual nitroglycerin was administered for coronary dilation. Oral metoprolol was taken in advance for heart rate optimization. See nursing notes for additional details of medications given in the CT department. Contrast: 75 mL Total DLP = 282 mGy-cm Study Quality: Good. Extracardiac Findings: The visualized portions of the chest wall, lungs, and mediastinum are unremarkable. Cardiac Chambers and Valves: The pericardium is unremarkable. The right ventricle is normal in size. The left ventricle is normal in size. The right atrium is normal in size. The left atrium is normal in size. The left atrial appendage is normal in appearance. The mitral valve is unremarkable by CT appearance. The aortic valve is trileaflet. Great Vessels: The ascending aorta is normal in size. The aortic arch is not included in the present study. The included portions of the descending thoracic aorta are normal in size. Coronary Anatomy: The coronaries have normal origins. There is a pattern of right coronary dominance. Left Main Trunk: This is a large vessel that bifurcates normally into the LAD and LCx. There is mixed calcified and noncalcified plaque at the ostium of the left main trunk resulting in mild luminal narrowing. Left Anterior Descending Artery: This is a large vessel that extends to the apex after providing a single large diagonal branch. There is a small focus of calcified and noncalcified plaque at the origin of the diagonal branch, resulting in mild luminal irregularity. Left Circumflex Artery: This is a large non-dominant vessel that gives rise to 2 obtuse marginal branches. There is no atherosclerotic plaque or luminal stenosis within the circumflex artery or its branches. Right Coronary Artery: This is a large dominant vessel. It gives rise to a medium-sized PDA and small posterior ventricular branch. There is no atherosclerotic plaque or luminal stenosis within the right coronary artery or its branches. [facility] Helder Oro MD - 05/19/2023 Patient Name: AYALA ARANDA : 1965 [facility]#: [id number] Exam Date/Time: 05/19/2023 09:25 Procedure: CT CORONARY CTA WITH PROV FFR-CT Ordering Provider: TOMAS OTFRIED Reason For Exam: Chest pain/anginal equiv, ECGs and troponins normal CORONARY CTA CLINICAL INDICATION: Chest pain. Study performed to evaluate for coronary artery disease. Computed tomography of the heart and surrounding structures was performed using a Sycamore multidetector scanner with cardiac gating and dose reduction techniques. Dose reduction was employed with automated exposure control. Images were reconstructed and analyzed on an advanced post-processing 3D workstation. Sublingual nitroglycerin was administered for coronary dilation. Oral metoprolol was taken in advance for heart rate optimization. See nursing notes for additional details of medications given in the CT department. Contrast: 75 mL Total DLP = 282 mGy-cm Study Quality: Good. Extracardiac Findings: The visualized portions of the chest wall, lungs, and mediastinum are unremarkable. Cardiac Chambers and Valves: The pericardium is unremarkable. The right ventricle is normal in size. The left ventricle is normal in size. The right atrium is normal in size. The left atrium is normal in size. The left atrial appendage is normal in appearance. The mitral valve is unremarkable by CT appearance. The aortic valve is trileaflet. Great Vessels: The ascending aorta is normal in size. The aortic arch is not included in the present study. The included portions of the descending thoracic aorta are normal in size. Coronary Anatomy: The coronaries have normal origins. There is a pattern of right coronary dominance. Left Main Trunk: This is a large vessel that bifurcates normally into the LAD and LCx. There is mixed calcified and noncalcified plaque at the ostium of the left main trunk resulting in mild luminal narrowing. Left Anterior Descending Artery: This is a large vessel that extends to the apex after providing a single large diagonal branch. There is a small focus of calcified and noncalcified plaque at the origin of the diagonal branch, resulting in mild luminal irregularity. Left Circumflex Artery: This is a large non-dominant vessel that gives rise to 2 obtuse marginal branches. There is no atherosclerotic plaque or luminal stenosis within the circumflex artery or its branches. Right Coronary Artery: This is a large dominant vessel. It gives rise to a medium-sized PDA and small posterior ventricular branch. There is no atherosclerotic plaque or luminal stenosis within the right coronary artery or its branches. IMPRESSION: Mild nonobstructive coronary atherosclerosis. The coronary calcium score is 76 (Agatston method). Normal cardiac chambers. FFR-CT OPTION: FFR-CT is not requested for this study. CAD-RADS 2 / P1 Recommendation: Preventive pharmacotherapy and risk factor modification. Consider non-atherosclerotic causes of symptoms. Report Dictated on Electronically Signed By: Helder Oro MD Electronically Signed Date/Time: 05/19/2023 11:03 AM EDT [facility] Radiology Study observation (narrative) [facility] alth CTA Heart and Coronary arter ies WO and W contrast IVOrdered By: Helder Oro on 05-19-2023 [facility] Nursing Noteon 05-19-2023 Nursing Note Discharge instructio ns reviewed with patient. No questions at this time. Ivs taken out and pt is off of monitor. Pt taken down to discharge. Normal [facility] Nursing Note Patient arrived to [facility] for CTA of coronary arteries. CT imaging and nitroglycerin administration explained. Patient conveys understanding and agrees to proceed. Baseline HR , BP . Nitroglycerin administered per protocol. CT imaging completed. Repeat BP , HR . Denies dizziness or lightheadedness. Patient assisted to sitting position, denies dizziness or lightheadedness. Discharge instructions provided. Patient conveys understanding. 1 bottle of water given. Ambulated from CT with steady gait. Patient returned to 1C-133A via patient transport. Normal [facility] CARECOORDon 05-18-2023 CARECONELIA Made aware by PRICE RN that This patient's insurance plan is out of network with [facility]. Please notify the patient and the provider so that she can be transferred to an in-network facility when stable. MD Haydee added to conversation, no response yet. [facility] CARECOORD Care Managment Initi al Assessment Date: 05/18/2023 Patient Name: Ayala Aranda : 1965 Patient Information Source of Information: Patient Cognition/Language: WFL - Within Functional Limits Permission given to speak with patient reimbursement representative/caregive r as indicated: Confirmation of Payer with patient/family: Yes Payer Name: caresource : No Confirmation of Primary Care Physician: Confirmed PCP Name: DO Eden Seen in last 2 years?: Yes Primary Caregiver: Self If assistance needed, confirmed caregiver ready, willing and able to care for patient at discharge: Yes () Confirmed with: patient Living Arrangements Current Residence: House Number of Floors 1 Number of Entry Steps: 2 Bed/Bath Levels: Both first floor Facility: Facility Name: Plan to Return: Lives with: Spouse/significant other, Children Support Systems: Spouse/significant other, Children, Family members Activities of Daily Living Ambulation: Independent Bathing/Dressing: Independent Elimination/Continence/ Toileting: Independent Feeding: Independent Who Assists with Activities of Daily Living: Instrumental Activities of Daily Living Prescription Coverage: Yes Pharmacy Used: [facility] Medication Management: Independent Transportation/Shopping : Independent Transportation Mode: Car Needs Assistance with Transportation at Discharge: No Meal Preparation: Independent Laundry/Cleaning: Independent Finances/Bill Paying: Independent Communication: Independent Types of Care Services/Equipment Utilized Care Services: Dialysis Type: NA Durable Medical Equipment: DME Provider: none Patient's Goal/Discharge Plan Patient expects to be discharged to: home Discharge Planning Actions: Continue to follow, No needs identified Patient's Choice Rights and [employer] and Collaborative Relationships Disclosed as Indicated for Post-Acute Care: Interdisciplinary Team Engagement: Social Work Referral for: Additional Information: Met with patient at bedside. Patient is admitted to for syncope and unresponsive episode lasting 3 minutes. Patient came to [facility] via EMS. Patient denies DME needs, denies TCC needs, patient is independent at home. TCC to follow. Zahida Salazar RN [facility] Consulton 05-18-2023 Consult [facility] Heart & Vascular [place] [facility] Cardiology /Electrophysiology Consult Note Reason for Consult/Chief Complaint: Syncope, lightheadedness, fatigue Referring provider: Haydee Mota licensed midwife: None History of Present Illness: Ayala Aranda is a 58 y.o. female with a history of hypertension hyperlipidemia, family history of premature heart disease in both parents who presented with proximately 3 months of progressive fatigue and at times signs of feeling disoriented and confused and syncope at home. One of the events was witnessed by EMS. Patient has a history of bariatric surgery in 2019 and has done well since, she lost approximately 140 to 150 pounds. Approximately 3 months ago, shortly after she had what she describes as flu with bodyaches headaches, fever, possible mild temporary loss of smell and taste. Patient did not get tested for COVID or other viruses. Shortly afterwards her medications were changed, she was started on high intensity statin and Zoloft was added. Shortly after those changes and the above-noted event she noticed that intermittently she became disoriented or confused. She feels like she could not think straight and also had trouble with memory when doing routine things. She does not smoke or drink. 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 Family history is positive for premature heart disease in both parents. Assessment/Plan HF NYHA Class [] I [] II [] III [] IV Syncope: The patient's symptoms are somewhat difficult to describe, however it appears that she had 2 episodes of syncope, of which at least 1 was witnessed by EMS. It appears that she woke up slowly. She does not mention any convulsions or seizure-like symptoms being mentioned. Based on the patient's description this appears to be more consistent with neurologic problem rather than a cardiac event. Chest pain: While hospitalized the patient notices intermittent precordial and substernal chest burning. She denies any previous anginal symptoms. Given her risk factors patient definitely will require risk stratification. I recommended a coronary CT angiogram to rule out plaque disease and calcifications. Mental status changes: Patient describes some symptoms consistent with brain fog. It is not quite clear whether the patient's symptoms started after she had an infectious process or after statin therapy was started. It is conceivable that the patient had COVID, unfortunately was not tested and now has long COVID symptoms with what is best described as a brain fog. However, it is also conceivable that his symptoms may be due to a side effect from statin therapy. Due to the latter I took the liberty to discontinue/hold rosuvastatin at least for the time being. Unfortunately the patient's symptoms are due to long COVID there is currently no proven diagnostic or therapeutic intervention available. Cardiology will follow along. Medications: cholecalciferol, 2,000 Units, Oral, Daily cyanocobalamin, 1,000 mcg, Oral, Daily docusate sodium, 100 mg, Oral, Daily enoxaparin, 40 mg, SubCUTAneous, Daily ferrous sulfate, 325 mg, Oral, Daily with breakfast [START ON 05/19/2023] levothyroxine, 100 mcg, Oral, qAM AC losartan, 50 mg, Oral, Daily sertraline, 100 mg, Oral, Daily Infusion Medications: sodium chloride, 100 mL/hr, Last Rate: 100 mL/hr (05/17/23 1147) Physical Examination: Vitals: 05/18/23 0600 05/18/23 0721 05/18/23 1040 05/18/23 1122 BP: 143/77 137/65 BP Location: Right arm Left arm Patient Position: Lying Lying Pulse: 56 (!) 49 58 Resp: 16 15 13 Temp: 37.1 ?C (98.8 ?F) 36.6 ?C (97.8 ?F) TempSrc: Temporal Temporal SpO2: 95% 96% Weight: 170 lb (77.1 kg) Height: 5' (1.524 m) No intake or output data in the 24 hours ending 05/18/23 1433 Wt Readings from Last 3 Encounters: 05/18/23 170 lb (77.1 kg) 08/17/19 155 lb 9.6 oz (70.6 kg) 04/14/19 160 lb (72.6 kg) Physical Exam Vitals reviewed. Constitutional: Appearance: Normal appearance. She is normal weight. HENT: Head: Normocephalic and atraumatic. Right Ear: External ear normal. Left Ear: External ear normal. Nose: Nose normal. Eyes: Extraocular Movements: Extraocular movements intact. Conjunctiva/sclera: Conjunctivae normal. Neck: Vascular: No carotid bruit. Cardiovascular: Rate and Rhythm: Normal rate and regular rhythm. Heart sounds: No murmur heard. No gallop. Pulmonary: Effort: Pulmonary effort is normal. Breath sounds: Normal breath sounds. No wheezing. Abdominal: General: Bowel sounds are normal. Palpations: Abdomen is soft. Musculoskeletal: General: No swelling. Normal range of motion. Cervical back: Neck supple. Right lower leg: No edema. Left lower leg: No edema. Skin: General: Skin is warm and dry. Neurological: General: No focal deficit present. Mental Status: She is alert and oriented to pe (more content not included)... Normal [facility] ECG 12-LEADon 05-18-2023 ECG 12-LEAD IMPRESSION: Sinus bradycardia Electronically Signed On 05-18-2023 17:17:55 EDT by Emma Whaley [facility] IDNon 05-18-2023 IDN Problem: Pain - Adul t Goal: Verbalizes/displays adequate comfort level or baseline comfort level Outcome: Progressing Problem: Safety - Adult Goal: Free from fall injury Outcome: Progressing Problem: Chronic Conditions and Co-morbidities Goal: Patient's chronic conditions and co-morbidity symptoms are monitored and maintained or improved Outcome: Progressing Normal [facility] IDN Problem: Pain - Adul t Goal: Verbalizes/displays adequate comfort level or baseline comfort level Outcome: Progressing Problem: Safety - Adult Goal: Free from fall injury Outcome: Progressing Problem: Chronic Conditions and Co-morbidities Goal: Patient's chronic conditions and co-morbidity symptoms are monitored and maintained or improved Outcome: Progressing [facility] Laboratory - Chemistry and C hemistry - challengeon 05-18-2023 Troponin I.cardiac [Mass/Vol] 0.016 ng/mL [facility] - 0.034 ng/mL [facility] [employer] Troponin I.cardiac [Mass/Vol] ng/mL [facility] - 0.034 ng/mL [facility] No Panel InformationOrdered By: Emma Whaley on 05-18-2023 P [place] 18 degrees [facility] Work Phone: HI Interval 197 ms [facility] [employer] Work Phone: QRS [place] 22 degrees [facility] Work Phone: QRSD Interval 98 ms [facility] [employer] Work Phone: QT Interval 463 ms [employer] Phone: QTC Interval 434 ms [employer] Phone: T Wave [place] 18 degrees [employer] Phone: [employer] Phone: No Panel Informationon 05-17 Sinus bradycardia Electronically Signed On 05-18-2023 17:17:55 EDT by Emma Vergara M D - 05/18/2023 IMPRESSION: Sinus bradycardia Electronically Signed On 05-18-2023 17:17:55 EDT by Emma Whaley [facility] Progress Noteon 05-18-2023 Progress Note Nutrition rescreen completed. Chart reviewed. Patient to be monitored and followed by the diet laboratory technician. Normal [facility] TROPONIN Ion 05-18-2023 Troponin I.cardiac [Mass/Vol] 0.016 ng/mL Normal <0.034 [facility] Comment on above: Result Comment: MARA [place] COMMENTS: Patients with high levels of Biotin oral intake (ie >5 mg/day) may have falsely decreased Troponin levels. Performed By: #### L [id number] ####Director Of User Experience: WALESKA GUNTER ([id number])[address] TROPONIN, WITH SERIAL REFLEX on 05-18-2023 Troponin I.cardiac [Mass/Vol] ng/mL Normal <0.034 [facility] Comment on above: Result Comment: MARA [place] COMMENTS: Patients with high levels of Biotin oral intake (ie >5 mg/day) may have falsely decreased Troponin levels. Performed By: #### L [id number] ####Director Of User Experience: WALESKA GUNTER ([id number])[address] Troponin I.cardiac [Mass/Vol ]on 05-18-2023 Interpretation and review of laboratory results Normal [facility] Patients with high levels of Biotin oral intake (ie >5 mg/day) may have falsely decreased Troponin levels. [facility] Interpretation and review of laboratory results Normal [facility] Patients with high levels of Biotin oral intake (ie >5 mg/day) may have falsely decreased Troponin levels. [facility] [facility] Heart TransthoracicOrdere d By: Reji Medellin on 05-18-2023 Ao Root Index 1.72 cm/m2 [facility] Work Phone: [phone] Aortic Root 3.0 cm [facility] Work Phone: [phone] Ascending Aorta 3.5 cm [facility] Work Phone: [phone] Ascending Aorta Index 2.01 cm/m2 [facility] Work Phone: [phone] AV Area by Peak Velocity 2.6 cm2 [facility] Work Phone: [phone] AV Area by VTI 3.2 cm2 [facility] Work Phone: [phone] AV Mean Gradient 3 mmHg [facility] Work Phone: [phone] AV Mean Velocity 0.8 m/s [facility] Work Phone: [phone] AV Peak Gradient 7 mmHg [facility] Work Phone: [phone] AV Peak Velocity 1.3 m/s [facility] Work Phone: [phone] AV Velocity Ratio 0.85 [facility] Work Phone: [phone] AV VTI 26.7 cm [facility] Work Phone: [phone] SHANNAN/BSA Peak Velocity 1.5 cm2/m2 [facility] Work Phone: [phone] SHANNAN/BSA VTI 1.8 cm2/m2 [facility] Work Phone: 95 E/E' Lateral 10.44 [facility] Work Phone: [phone] E/E' Ratio (Averaged) 11.94 [facility] Work Phone: [phone] E/E' Septal 13.43 [facility] Work Phone: [phone] EF BP 59 % 55 - 100 % [facility] Work Phone: [phone] Est. RA Pressure 3 mmHg [facility] Work Phone: [phone] Fractional Shortening 2D 35 % 28 - 44 % [facility] Work Phone: Interpretation and review of laboratory results Abnormal [facility] Work Phone: [phone] IVC Diameter 1.4 cm [facility] Work Phone: [phone] IVSd 0.8 cm 0.6 - 0.9 cm [facility] Work Phone: [phone] LA Diameter 4.2 cm [facility] Work Phone: [phone] LA Size Index 2.41 cm/m2 [facility] Work Phone: [phone] LA Volume 2C 60 mL Abnormal 22 - 52 mL [facility] Work Phone: [phone] LA Volume 4C 61 mL Abnormal 22 - 52 mL [facility] Work Phone: [phone] LA Volume A/L 65 mL [facility] Work Phone: [phone] LA Volume BP 60 mL Abnormal 22 - 52 mL [facility] Work Phone: [phone] LA Volume Index 2C 34 mL/m2 16 - 34 mL/m2 [facility] Work Phone: [phone] LA Volume Index 4C 35 mL/m2 Abnormal 16 - 34 mL/m2 [facility] Work Phone: [phone] LA Volume Index A/L 37 mL/m2 16 - 34 mL/m2 [facility] Work Phone: [phone] LA Volume Index BP 34 ml/m2 16 - 34 ml/m2 [facility] Work Phone: [phone] LA/AO Root Ratio 1.40 [facility] Work Phone: LV E' Lateral Velocity 9 cm/s [facility] Work Phone: [phone] LV E' Septal Velocity 7 cm/s [facility] Work Phone: [phone] LV EDV A2C 112 mL [facility] Work Phone: [phone] LV EDV A4C 123 mL [facility] Work Phone: LV EDV BP 117 mL Abnormal 56 - 104 mL [facility] Work Phone: LV EDV Index A2C 64 mL/m2 [facility] Work Phone: LV EDV Index A4C 71 mL/m2 [facility] Work Phone: [phone] LV EDV Index BP 67 mL/m2 [facility] Work Phone: [phone] LV Ejection Fraction A2C 56 % [facility] Work Phone: [phone] LV Ejection Fraction A4C 62 % [facility] Work Phone: [phone] LV ESV A2C 49 mL [facility] Work Phone: [phone] LV ESV A4C 47 mL [facility] Work Phone: [phone] LV ESV BP 48 mL 19 - 49 mL [facility] Work Phone: [phone] LV ESV Index A2C 28 mL/m2 [facility] Work Phone: [phone] LV ESV Index A4C 27 mL/m2 [facility] Work Phone: [phone] LV ESV Index BP 28 mL/m2 [facility] Work Phone: [phone] LV Mass 2D 141.9 g 67 - 162 g [facility] Work Phone: [phone] LV Mass 2D Index 81.6 g/m2 43 - 95 g/m2 [facility] Work Phone: [phone] LV RWT Ratio 0.37 [facility] Work Phone: [phone] LVIDd 4.9 cm 3.9 - 5.3 cm [facility] Work Phone: [phone] LVIDd Index 2.82 cm/m2 [facility] Work Phone: [phone] LVIDs 3.2 cm [facility] Work Phone: [phone] LVIDs Index 1.84 cm/m2 [facility] Work Phone: [phone] LVOT Area 3.1 cm2 [facility] Work Phone: [phone] LVOT Cardiac Output 4.6 liter/mi nut e [facility] Work Phone: [phone] LVOT Diameter 2.0 cm [facility] Work Phone: [phone] LVOT Mean Gradient 2 mmHg [facility] Work Phone: [phone] LVOT Peak Gradient 4 mmHg [facility] Work Phone: LVOT Peak Velocity 1.1 m/s [facility] Work Phone: [phone] LVOT Stroke Volume Index 47.3 mL/m2 [facility] Work Phone: [phone] LVOT SV 82.3 ml [facility] Work Phone: [phone] LVOT VTI 26.2 cm [facility] Work Phone: [phone] LVOT:AV VTI Index 0.98 [facility] Work Phone: [phone] LVPWd 0.9 cm 0.6 - 0.9 cm [facility] Work Phone: [phone] MV A Velocity 0.86 m/s [facility] Work Phone: [phone] MV E Velocity 0.94 m/s [facility] Work Phone: [phone] MV E Wave Deceleration Time 222.9 ms [facility] Work Phone: [phone] MV E/A 1.09 [facility] Work Phone: [phone] Pulm Vein A Duration 145.6 ms [facility] Work Phone: [phone] Pulm Vein A Velocity 0.3 m/s [facility] Work Phone: [phone] Pulm Vein Peak D Velocity 0.6 m/s [facility] Work Phone: [phone] Pulm Vein Peak S Velocity 0.7 m/s [facility] Work Phone: [phone] Pulm Vein S/D 1.2 [facility] Work Phone: [phone] RA Area 4C 17.5 mL [facility] Work Phone: [phone] RA Area 4C 17.0 mL [facility] Work Phone: [phone] RV Basal Dimension 3.0 cm [facility] Work Phone: [phone] RV Free Wall Peak S' 11 cm/s [facility] Work Phone: [phone] RV Longitudinal Dimension 6.8 cm [facility] Work Phone: [phone] RV Mid Dimension 2.5 cm [facility] Work Phone: RVSP 21 mmHg [facility] Work Phone: [phone] Sinotubular Junction 2.[address] [facility] Work Phone: [phone] TAPSE 3.0 cm 1.7 cm [facility] [employer] Work Phone: [phone] TR Max Velocity 2.14 m/s [facility] Work Phone: [phone] TR Peak Gradient 18 mmHg [facility] Work Phone: [phone] [facility] Work Phone: [phone] Heart Transthoracicon Left Ventricle: Left ventricle size is normal. Normal wall thickness. Normal left ventricular systolic function. EF by 2D Simpsons Biplane is 59%. Normal wall motion. Right Ventricle: Right ventricle size is normal. Normal systolic function. Tricuspid Valve: Normal RVSP. RVSP is 21 mmHg. Left Atrium: Left atrium is mildly dilated. Left atrium size is mildly increased (LA volume index 35-41 mL/m2).LA Vol Index A/L is 37 mL/m2. No significant valvular abnormalities. Left Ventricle Left ventricle size is normal. Normal wall thickness. Normal left ventricular systolic function. EF by 2D Simpsons Biplane is 59%. Normal wall motion. Normal diastolic function. Right Ventricle Right ventricle size is normal. Normal systolic function. Left Atrium Left atrium is mildly dilated. Left atrium size is mildly increased (LA volume index 35-41 mL/m2).LA Vol Index A/L is 37 mL/m2. Right Atrium Right atrium size is normal. IVC/SVC IVC size is normal. IVC diameter is normal and decreases greater than 50% during inspiration; therefore the estimated right atrial pressure is normal (~3 mmHg). Mitral Valve Thickened leaflets. Mild (1+) regurgitation. No stenosis noted. Tricuspid Valve Valve structure is normal. Trace regurgitation. Normal RVSP. RVSP is 21 mmHg. Aortic Valve Trileaflet. No cusp calcification. Trace regurgitation. No stenosis. Pulmonic Valve Valve structure is normal. Trace regurgitation. Ascending Aorta Normal sized sinuses of Valsalva and ascending aorta. Pericardium No pericardial effusion. Septum No interatrial shunt visualized on color Doppler. Study Details Image quality: adequate. Heart rate: 63 bpm. Blood pressure: 143/77 mmHg. Technical qualifiers: Technically difficult study. No contrast was given. Echo Additional Conclusions No significant valvular abnormalities. CV CPACS Vital signsOrdered By: Juancarlos Whaley on 05-18-2023 Heart rate 53 /min bpm [facility] Work Phone: BASIC METABOLIC PANELon 04-30 Anion gap [Moles/Vol] 8 mmol/L Normal 3-13 [facility] Comment on above: Performed By: #### L [id number], [id number] ####Director Of User Experience: WALESKA GUNTER ([id number])[facility] ([facility])[address] [place] [address] Calcium [Mass/Vol] 8.6 mg/dL Normal 8.4-10.4 [facility] Comment on above: Performed By: #### L [id number], [id number] ####Director Of User Experience: WALESKA GUNTER ([id number])[facility] ([facility])[address] [place] [address] Chloride [Moles/Vol] 108 mmol/L High 98-107 [facility] Comment on above: Performed By: #### L [id number], [id number] ####Director Of User Experience: WALESKA GUNTER ([id number])[facility] [place] [address] CO2 [Moles/Vol] 23 mmol/L Normal 22-30 [facility] Comment on above: Performed By: #### L [id number], [id number] ####Director Of User Experience: WALESKA GUNTER ([id number])[facility] ([facility])[address] [place] [address] Creatinine [Mass/Vol] 0.36 mg/dL Low 0.52-1.04 [facility] Comment on above: Performed By: #### L [id number], [id number] ####Director Of User Experience: WALESKA GUNTER ([id number])[facility])[address] [place] [address] GLOMERULAR FILTRATION RATE ML/MIN/1.73 SQ M.PREDICTED >90.0 Normal >60.0 [facility] Comment on above: Result Comment: Calc ulation based on the Chronic Kidney Disease Epidemiology Collaboration (CKD-EPI) equation refit without adjustment for race Performed By: #### L [id number], [id number] ####Director Of User Experience: WALESKA GUNTER ([id number])[facility])[address] [place] [address] Glucose [Mass/Vol] 91 mg/dL Normal 70-100 [facility] Comment on above: Performed By: #### L [id number], [id number] ####Director Of User Experience: WALESKA GUNTER ([id number])[facility] ([facility])[address] [place] [address] Potassium [Moles/Vol] 3.9 mmol/L Normal 3.5-5.1 [facility] Comment on above: Performed By: #### L [id number], [id number] ####Director Of User Experience: WALESKA GUNTER ([id number])[facility])[address] [place] [address] Sodium [Moles/Vol] 139 mmol/L Normal 135-145 [facility] Comment on above: Performed By: #### L [id number], [id number] ####Director Of User Experience: WALESKA GUNTER ([id number])[facility] ([facility])[address] [place] [address] Urea nitrogen [Mass/Vol] 16 mg/dL Normal 7-17 [facility] Comment on above: Performed By: #### L [id number], [id number] ####Director Of User Experience: WALESKA GUNTER ([id number])[facility])[address] [place] [address] Basic metabolic 1998 panelon 05-17-2023 Anion gap [Moles/Vol] 8 mmol/L 3 - 13 mmol/L [facility] Calcium [Mass/Vol] 8.6 mg/dL 8.4 - 10. 4 mg/dL [facility] Chloride [Moles/Vol] 108 mmol/L High 98 - 10 7 mmol/L [facility] CO2 [Moles/Vol] 23 mmol/L 22 - 30 mmol/L [facility] Creatinine [Mass/Vol] 0.36 mg/dL Low 0.52 - 1.04 mg/dL [facility] GFR/1.73 sq M.predicted MDRD (S/P/Bld) [Vol rate/Area] - PINF [facility] Comment on above: Calculation based on the Chronic Kidney Disease Epidemiology Collaboration (CKD-EPI) equation refit without adjustment for race Glucose [Mass/Vol] 91 mg/dL 70 - 100 mg/dL [facility] Interpretation and review of laboratory results Abnormal [facility] Potassium [Moles/Vol] 3.9 mmol/L 3.5 - 5.1 mmol/L [facility] Sodium [Moles/Vol] 139 mmol/L 135 - 145 mmol/L [facility] Urea nitrogen [Mass/Vol] 16 mg/dL 7 - 17 mg/dL [facility] CBC W Auto Differential pane l (Bld)on 05-17-2023 Basophils (Bld) [#/Vol] 0.0 10*3/uL 0.0 - 0.2 10*3/uL [facility] Basophils/100 WBC (Bld) 0.4 % 0.0 - 2.0 % [facility] Eosinophils (Bld) [#/Vol] 0.0 10*3/uL 0.0 - 0.5 10*3/uL [facility] Eosinophils/100 WBC (Bld) 0.5 % 0.0 - 6.0 % [facility] Erythrocyte distribution width (RBC) [Ratio] 13.2 % 11.5 - 15.0 % [facility] Hematocrit (Bld) [Volume fraction] 33.4 % Low 35.0 - 47.0 % [facility] Hemoglobin (Bld) [Mass/Vol] 11.3 g/dL Low 11.7 - 16.0 g/dL [facility] Immature granulocytes (Bld) [#/Vol] 0.0 10*3/uL NINF - 0.1 10*3/uL [facility] Immature granulocytes/100 WBC (Bld) 0.2 % 0.0 - 2.0 % [facility] Interpretation and review of laboratory results Abnormal [facility] Lymphocytes (Bld) [#/Vol] 2.5 10*3/uL 1.0 - 4.3 10*3/uL [facility] Lymphocytes/100 WBC (Bld) 29.7 % 15.0 - 45.0 % [facility] MCH (RBC) [Entitic mass] 30.1 pg 26.0 - 34.0 pg [facility] MCHC (RBC) [Mass/Vol] 33.8 % 30.5 - 36.0 % [facility] MCV (RBC) [Entitic vol] 89.1 fL 77.0 - 99.0 fL [facility] Monocytes (Bld) [#/Vol] 0.5 10*3/uL 0.0 - 0.9 10*3/uL [facility] Monocytes/100 WBC (Bld) 5.7 % 5.0 - 13.0 % [facility] Neutrophils (Bld) [#/Vol] 5.3 10*3/uL 1.8 - 7.5 10*3/uL [facility] Neutrophils/100 WBC (Bld) 63.5 % 38.0 - 82.0 % [facility] Nucleated RBC/100 WBC (Bld) [Ratio] 0.0 % [facility] Platelet mean volume (Bld) [Entitic vol] 10.8 fL 9.0 - 12.7 fL [facility] Platelets (Bld) [#/Vol] 243 10*3/uL 140 - 440 10*3/uL [facility] RBC (Bld) [#/Vol] 3.75 10*6/uL Low 3.80 - 5.2 0 10*6/uL [facility] WBC (Bld) [#/Vol] 8.3 10*3/uL 3.6 - 10.7 10*3/uL [facility] CBC WITH AUTO DIFFERENTIALon 05-17-2023 Basophils (Bld) [#/Vol] 0.0 10*3/uL Normal 0.0-0.2 [facility] Comment on above: Performed By: #### L [id number] #### Director Of User Experience: WALESKA GUNTER ([id number]) [facility] [address] [place] [address] Basophils/100 WBC (Bld) 0.4 % Normal 0.0-2.0 [facility] Comment on above: Performed By: #### L [id number] #### Director Of User Experience: WALESKA GUNTER ([id number]) [facility] [address] [place] [address] Eosinophils (Bld) [#/Vol] 0.0 10*3/uL Normal 0.0-0.5 [facility] Comment on above: Performed By: #### L [id number] #### Director Of User Experience: WALESKA GUNTER ([id number]) [facility]) [address] [place] [address] Eosinophils/100 WBC (Bld) 0.5 % Normal 0.0-6.0 [facility] Comment on above: Performed By: #### L [id number] #### Director Of User Experience: WALESKA GUNTER ([id number]) [facility]) [address] [place] [address] Erythrocyte distribution width (RBC) [Ratio] 13.2 % Normal 11.5-15.0 [facility] Comment on above: Performed By: #### L [id number] #### Director Of User Experience: WALESKA GUNTER ([id number]) [facility]) [address] [place] [address] Hematocrit (Bld) [Volume fraction] 33.4 % Low 35.0-47.0 [facility] Comment on above: Performed By: #### L [id number] #### Director Of User Experience: WALESKA GUNTER ([id number]) [facility]) [address] [place] [address] Hemoglobin (Bld) [Mass/Vol] 11.3 g/dL Low 11.7-16.0 [facility] Comment on above: Performed By: #### L [id number] #### Director Of User Experience: WALESKA GUNTER ([id number]) [facility]) [address] [place] [address] IMMATURE GRANS % 0.2 % Normal 0.0-2.0 [facility] Comment on above: Performed By: #### L [id number] #### Director Of User Experience: WALESKA GUNTER ([id number]) [facility]) [address] [place] [address] IMMATURE GRANS ABSOLUTE 0.0 10*3/uL Normal <0.1 [facility] Comment on above: Performed By: #### L [id number] #### Director Of User Experience: WALESKA GUNTER ([id number]) [facility]) [address] [place] [address] Lymphocytes (Bld) [#/Vol] 2.5 10*3/uL Normal 1.0-4.3 [facility] Comment on above: Performed By: #### L [id number] #### Director Of User Experience: WALESKA GUNTER ([id number]) [facility] ([facility]) [address] [place] [address] Lymphocytes/100 WBC (Bld) 29.7 % Normal 15.0-45.0 [facility] Comment on above: Performed By: #### L [id number] #### Director Of User Experience: WALESKA GUNTER ([id number]) [facility]) [address] [place] [address] MCH (RBC) [Entitic mass] 30.1 pg Normal 26.0-34.0 [facility] Comment on above: Performed By: #### L [id number] #### Director Of User Experience: WALESKA GUNTER ([id number]) [facility] ([facility]) [address] [place] [address] MCHC 33.8 % Normal 30.5-36.0 [facility] Comment on above: Performed By: #### L [id number] #### Director Of User Experience: WALESKA GUNTER ([id number]) [facility]) [address] [place] [address] MCV (RBC) [Entitic vol] 89.1 fL Normal 77.0-99.0 [facility] Comment on above: Performed By: #### L [id number] #### Director Of User Experience: WALESKA GUNTER ([id number]) [facility]) [address] [place] [address] Monocytes (Bld) [#/Vol] 0.5 10*3/uL Normal 0.0-0.9 [facility] Comment on above: Performed By: #### L [id number] #### Director Of User Experience: WALESKA GUNTER ([id number]) [facility] [address] [place] [address] [place] Monocytes/100 WBC (Bld) 5.7 % Normal 5.0-13.0 [facility] Comment on above: Performed By: #### L [id number] #### Director Of User Experience: WALESKA GUNTER ([id number]) [facility] [address] [place] [address] NEUTROPHILS ABSOLUTE 5.3 10*3/uL Normal 1.8-7.5 [facility] Comment on above: Performed By: #### L [id number] #### Director Of User Experience: WALESKA GUNTER ([id number]) [facility] [address] [place] [address] Neutrophils/100 WBC (Bld) 63.5 % Normal 38.0-82.0 [facility] Comment on above: Performed By: #### L [id number] #### Director Of User Experience: WALESKA GUNTER ([id number]) [facility] [address] [place] [address] NRBC 0.0 /100 WBCs Normal 0.0-2.0 [facility] Comment on above: Performed By: #### L [id number] #### Director Of User Experience: WALESKA GUNTER ([id number]) [facility] ([facility]) [address] [place] [address] Platelet mean volume (Bld) [Entitic vol] 10.8 fL Normal 9.0-12.7 [facility] Comment on above: Performed By: #### L [id number] #### Director Of User Experience: WALESKA GUNTER ([id number]) [facility] [address] [place] [address] [place] Platelets (Bld) [#/Vol] 243 10*3/uL Normal 140-440 [facility] Comment on above: Performed By: #### L [id number] #### Director Of User Experience: WALESKA GUNTER ([id number]) [facility] ([facility]) [address] [place] [address] [place] RBC (Bld) [#/Vol] 3.75 10*6/uL Low 3.80-5.20 [facility] Comment on above: Performed By: #### L [id number] #### Director Of User Experience: WALESKA GUNTER ([id number]) [facility] ([facility]) [address] [place] [address] WBC (Bld) [#/Vol] 8.3 10*3/uL Normal 3.6-10.7 [facility] Comment on above: Performed By: #### L [id number] #### Director Of User Experience: WALESKA GUNTER ([id number]) [facility] ([facility]) [address] [place] [address] Cobalamin (Vitamin B12) [Mas s/Vol]on 05-17-2023 Interpretation and review of laboratory results [facility] ECG 12-LEADon 05-17-2023 ECG 12-LEAD IMPRESSION: Sinus bradycardia Electronically Signed On 05-17-2023 05:31:14 EDT by Saurabh Chavez [facility] ED Nursing Noteon 05-17-2023 ED Nursing Note Due to patient being a stroke team. Report was called to , given to JADON Funes. All questions answered. Patient transported to unit on dry cell battery assembler by a medic. No distress noted. MONICO Buckley RN 05/17/23 1415 [facility] ED Nursing Note Report to Tete Gupta RN 05/17/23 1338 [facility] ED Nursing Note Dr Monterroso notified via secure chat that pt has a headache and there is tingling in her face Betty Gupta RN 05/17/23 1030 [facility] Nursing Note Dr Elliott notified via secure chat that pt has a headache and there is tingling in her face Betty Gupta RN 05/17/23 1006 [facility] Nursing Note Pt reports headache from last night. 7/10 pain. PO PRN tylenol provided. Pt alert and oriented, call light within reach, bed low and locked, side rails upx2. Pt reports no further needs at this time Betty Gupta RN 05/17/23 0752 [facility] ED Nursing Note [employer] Professor at bedside to draw troponin and AM labs. Becky Oates RN 05/17/23 0306 Normal [facility] Laboratory - Chemistry and C hemistry - challengeon 05-17-2023 Troponin I.cardiac [Mass/Vol] ng/mL NINF - 0.034 ng/mL [facility] Troponin I.cardiac [Mass/Vol] ng/mL [facility] ng/mL [facility] Cobalamin (Vitamin B12) [Mass/Vol] 838 pg/mL 239 - 931 pg/mL [facility] No Panel InformationOrdered By: Saurabh Chavez on 05-17-2023 P [place] 31 degrees [employer] Work Phone: HI Interval 186 ms [employer] Work Phone: QRS [place] 15 degrees [employer] Work Phone: QRSD Interval 91 ms [employer] Work Phone: QT Interval 452 ms [employer] Work Phone: QTC Interval 439 ms [employer] Work Phone: T Wave [place] 22 degrees [employer] Work Phone: [employer] Work Phone: No Panel Informationon 05-16 Sinus bradycardia Electronically Signed On 05-17-2023 05:31:14 EDT by Saurabh Rueda MD - 05/17/2023 IMPRESSION: Sinus bradycardia Electronically Signed On 05-17-2023 05:31:14 EDT by Saurabh Chavez [facility] [employer] TROPONIN Ion 05-17-2023 Troponin I.cardiac [Mass/Vol] ng/mL Normal <0.034 [facility] Comment on above: Result Comment: MARA [place] COMMENTS: Patients with high levels of Biotin oral intake (ie >5 mg/day) may have falsely decreased Troponin levels. Performed By: #### L AB15, [id number] ####Director Of User Experience: WALESKA GUNTER ([id number])[facility] ([address] Troponin I.cardiac [Mass/Vol] ng/mL Normal <0.034 [facility] Comment on above: Result Comment: MARA [place] COMMENTS: Patients with high levels of Biotin oral intake (ie >5 mg/day) may have falsely decreased Troponin levels. Performed By: #### L [id number] ####Director Of User Experience: WALESKA GUNTER ([id number])[facility] ([facility])[address] [place] [address] Troponin I.cardiac [Mass/Vol ]on 05-17-2023 Interpretation and review of laboratory results Normal [facility] Patients with high levels of Biotin oral intake (ie >5 mg/day) may have falsely decreased Troponin levels. [facility] Interpretation and review of laboratory results Normal [facility] Patients with high levels of Biotin oral intake (ie >5 mg/day) may have falsely decreased Troponin levels. [facility] Vital signsOrdered By: Saurabh shelton on 05-17-2023 Heart rate 57 /min bpm [facility] [employer] Work Phone: ACETAMINOPHEN LEVELon 2023 Acetaminophen [Mass/Vol] ug/mL Low 10.0-30.0 [facility] Comment on above: Performed By: #### L AB43, LAB15, NCQ269, QQV571, [id number], LAB67 ####Director Of User Experience: WALESKA GUNTER ([id number])[facility] ([facility])[address] [place] [address] BASIC METABOLIC PANELon 04-30 Anion gap [Moles/Vol] 7 mmol/L Normal 3-13 [facility] Comment on above: Performed By: #### L AB43, LAB15, ZCW044, MJC603, [id number], LAB67 ####Director Of User Experience: WALESKA GUNTER ([id number])[facility] ([facility])[address] [place] [address] Calcium [Mass/Vol] 8.5 mg/dL Normal 8.4-10.4 [facility] Comment on above: Performed By: #### L AB43, LAB15, EGQ419, MTE211, [id number], LAB67 ####Director Of User Experience: WALESKA GUNTER ([id number])[facility] ([facility])[address] [place] [address] Chloride [Moles/Vol] 110 mmol/L High 98-107 [facility] Comment on above: Performed By: #### L AB43, LAB15, ILN730, ZSY706, [id number], LAB67 ####Director Of User Experience: WALESKA GUNTER ([id number])[facility])[address] [place] [address] CO2 [Moles/Vol] 22 mmol/L Normal 22-30 [facility] Comment on above: Performed By: #### L AB43, LAB15, HOB767, IMD904, [id number], LAB67 ####Director Of User Experience: WALESKA GUNTER ([id number])[facility] ([facility])[address] [place] [address] Creatinine [Mass/Vol] 0.47 mg/dL Low 0.52-1.04 [facility] Comment on above: Performed By: #### L AB43, LAB15, CWQ326, NNP846, [id number], LAB67 ####Director Of User Experience: WALESKA GUNTER ([id number])[facility])[address] [place] [address] GLOMERULAR FILTRATION RATE ML/MIN/1.73 SQ M.PREDICTED >90.0 Normal >60.0 [facility] Comment on above: Result Comment: Calc ulation based on the Chronic Kidney Disease Epidemiology Collaboration (CKD-EPI) equation refit without adjustment for race ORDER COMMENTS: Slightly Hemolyzed. Interpret POTASSIUM with caution. Performed By: #### L AB43, LAB15, ATB970, PPB013, [id number], LAB67 ####Director Of User Experience: WALESKA GUNTER ([id number])[facility])[address] [place] [address] Glucose [Mass/Vol] 101 mg/dL High 70-100 [facility] Comment on above: Performed By: #### L AB43, LAB15, QRP269, TUL043, [id number], LAB67 ####Director Of User Experience: WALESKA GUNTER ([id number])[facility] ([facility])[address] [place] [address] Potassium [Moles/Vol] 4.2 mmol/L Normal 3.5-5.1 [facility] Comment on above: Performed By: #### L AB43, LAB15, URL671, WGN503, [id number], LAB67 ####Director Of User Experience: WALESKA GUNTER ([id number])[facility] ([facility])[address] [place] [address] Sodium [Moles/Vol] 139 mmol/L Normal 135-145 [facility] Comment on above: Performed By: #### L AB43, LAB15, UEE180, WUM166, [id number], LAB67 ####Director Of User Experience: WALESKA GUNTER ([id number])[facility] ([facility])[address] [place] [address] Urea nitrogen [Mass/Vol] 20 mg/dL High 7-17 [facility] Comment on above: Performed By: #### L AB43, LAB15, LDV206, LPV149, [id number], LAB67 ####Director Of User Experience: WALESKA GUNTER ([id number])[facility])[address] [place] [address] Basic metabolic 1998 panelon 05-16-2023 Anion gap [Moles/Vol] 7 mmol/L 3 - 13 mmol/L [facility] Calcium [Mass/Vol] 8.5 mg/dL 8.4 - 10. 4 mg/dL [facility] Chloride [Moles/Vol] 110 mmol/L High 98 - 10 7 mmol/L [facility] CO2 [Moles/Vol] 22 mmol/L 22 - 30 mmol/L [facility] Creatinine [Mass/Vol] 0.47 mg/dL Low 0.52 - 1.04 mg/dL [facility] GFR/1.73 sq M.predicted MDRD (S/P/Bld) [Vol rate/Area] - PINF [facility] Comment on above: Calculation based on the Chronic Kidney Disease Epidemiology Collaboration (CKD-EPI) equation refit without adjustment for race Glucose [Mass/Vol] 101 mg/dL High 70 - 100 mg/dL [facility] Potassium [Moles/Vol] 4.2 mmol/L 3.5 - 5.1 mmol/L [facility] Sodium [Moles/Vol] 139 mmol/L 135 - 145 mmol/L [facility] Urea nitrogen [Mass/Vol] 20 mg/dL High 7 - 17 mg/dL [facility] Slightly Hemolyzed. Interpret POTASSIUM with caution. [facility] CBC W Auto Differential pane l (Bld)on 05-16-2023 Basophils (Bld) [#/Vol] 0.0 10*3/uL 0.0 - 0.2 10*3/uL [facility] Basophils/100 WBC (Bld) 0.3 % 0.0 - 2.0 % [facility] Eosinophils (Bld) [#/Vol] 0.1 10*3/uL 0.0 - 0.5 10*3/uL [facility] Eosinophils/100 WBC (Bld) 0.6 % 0.0 - 6.0 % [facility] Erythrocyte distribution width (RBC) [Ratio] 13.0 % 11.5 - 15.0 % [facility] Hematocrit (Bld) [Volume fraction] 33.9 % Low 35.0 - 47.0 % [facility] Hemoglobin (Bld) [Mass/Vol] 11.4 g/dL Low 11.7 - 16.0 g/dL [facility] Immature granulocytes (Bld) [#/Vol] 0.0 10*3/uL NINF - 0.1 10*3/uL [facility] Immature granulocytes/100 WBC (Bld) 0.3 % 0.0 - 2.0 % [facility] Interpretation and review of laboratory results Abnormal [facility] Lymphocytes (Bld) [#/Vol] 2.6 10*3/uL 1.0 - 4.3 10*3/uL [facility] Lymphocytes/100 WBC (Bld) 27.3 % 15.0 - 45.0 % [facility] MCH (RBC) [Entitic mass] 30.2 pg 26.0 - 34.0 pg [facility] MCHC (RBC) [Mass/Vol] 33.6 % 30.5 - 36.0 % [facility] MCV (RBC) [Entitic vol] 89.9 fL 77.0 - 99.0 fL [facility] Monocytes (Bld) [#/Vol] 0.6 10*3/uL 0.0 - 0.9 10*3/uL [facility] Monocytes/100 WBC (Bld) 6.2 % 5.0 - 13.0 % [facility] Neutrophils (Bld) [#/Vol] 6.3 10*3/uL 1.8 - 7.5 10*3/uL [facility] Neutrophils/100 WBC (Bld) 65.3 % 38.0 - 82.0 % [facility] Nucleated RBC/100 WBC (Bld) [Ratio] 0.0 % [facility] Platelet mean volume (Bld) [Entitic vol] 10.5 fL 9.0 - 12.7 fL [facility] Platelets (Bld) [#/Vol] 254 10*3/uL 140 - 440 10*3/uL [facility] RBC (Bld) [#/Vol] 3.77 10*6/uL Low 3.80 - 5.2 0 10*6/uL [facility] WBC (Bld) [#/Vol] 9.6 10*3/uL 3.6 - 10.7 10*3/uL [facility] CBC WITH AUTO DIFFERENTIALon 05-16-2023 Basophils (Bld) [#/Vol] 0.0 10*3/uL Normal 0.0-0.2 [facility] Comment on above: Performed By: #### L [id number] ####Director Of User Experience: WALESKA GUNTER ([id number])[address] Basophils/100 WBC (Bld) 0.3 % Normal 0.0-2.0 [facility] Comment on above: Performed By: #### L [id number] ####Director Of User Experience: WALESKA [id number])[facility] ([facility])[address] [place] [address] Eosinophils (Bld) [#/Vol] 0.1 10*3/uL Normal 0.0-0.5 [facility] Comment on above: Performed By: #### L [id number] ####Director Of User Experience: WALESKA [id number])[facility] [address] Eosinophils/100 WBC (Bld) 0.6 % Normal 0.0-6.0 [facility] Comment on above: Performed By: #### L [id number] ####Director Of User Experience: WALESKA GUNTER ([id number])[facility])[address] [place] [address] Erythrocyte distribution width (RBC) [Ratio] 13.0 % Normal 11.5-15.0 [facility] Comment on above: Performed By: #### L [id number] ####Director Of User Experience: WALESKA GUNTER ([id number])[address] Hematocrit (Bld) [Volume fraction] 33.9 % Low 35.0-47.0 [facility] Comment on above: Performed By: #### L [id number] ####Director Of User Experience: WALESKA GUNTER ([id number])[facility])[address] [place] [address] Hemoglobin (Bld) [Mass/Vol] 11.4 g/dL Low 11.7-16.0 [facility] Comment on above: Performed By: #### L [id number] ####Director Of User Experience: WALESKA GUNTER ([id number])[address] IMMATURE GRANS % 0.3 % Normal 0.0-2.0 [facility] Comment on above: Performed By: #### L [id number] ####Director Of User Experience: WALESKA GUNTER ([id number])[facility])[address] [place] [address] IMMATURE GRANS ABSOLUTE 0.0 10*3/uL Normal <0.1 [facility] Comment on above: Performed By: #### L [id number] ####Director Of User Experience: WALESKA GUNTER ([id number])[facility])[address] [place] [address] Lymphocytes (Bld) [#/Vol] 2.6 10*3/uL Normal 1.0-4.3 [facility] Comment on above: Performed By: #### L [id number] ####Director Of User Experience: WALESKA GUNTER ([id number])[facility])[address] [place] [address] Lymphocytes/100 WBC (Bld) 27.3 % Normal 15.0-45.0 [facility] Comment on above: Performed By: #### L [id number] ####Director Of User Experience: WALESKA GUNTER ([id number])[facility] ([facility])[address] [place] [address] MCH (RBC) [Entitic mass] 30.2 pg Normal 26.0-34.0 [facility] Comment on above: Performed By: #### L [id number] ####Director Of User Experience: WALESKA GUNTER ([id number])[facility])[address] [place] [address] MCHC 33.6 % Normal 30.5-36.0 [facility] Comment on above: Performed By: #### L [id number] ####Director Of User Experience: WALESKA GUNTER ([id number])[facility])[address] [place] [address] MCV (RBC) [Entitic vol] 89.9 fL Normal 77.0-99.0 [facility] Comment on above: Performed By: #### L [id number] ####Director Of User Experience: WALESKA GUNTER ([id number])[facility])[address] [place] [address] Monocytes (Bld) [#/Vol] 0.6 10*3/uL Normal 0.0-0.9 [facility] Comment on above: Performed By: #### L [id number] ####Director Of User Experience: WALESKA GUNTER ([id number])[facility])[address] [place] [address] Monocytes/100 WBC (Bld) 6.2 % Normal 5.0-13.0 [facility] Comment on above: Performed By: #### L [id number] ####Director Of User Experience: WALESKA GUNTER ([id number])[facility] ([facility])[address] [place] [address] NEUTROPHILS ABSOLUTE 6.3 10*3/uL Normal 1.8-7.5 [facility] Comment on above: Performed By: #### L [id number] ####Director Of User Experience: WALESKA GUNTER ([id number])[facility] ([facility])[address] [place] [address] Neutrophils/100 WBC (Bld) 65.3 % Normal 38.0-82.0 [facility] Comment on above: Performed By: #### L [id number] ####Director Of User Experience: WALESKA GUNTER ([id number])[facility])[address] [place] [address] NRBC 0.0 /100 WBCs Normal 0.0-2.0 [facility] Comment on above: Performed By: #### L [id number] ####Director Of User Experience: WALESKA GUNTER ([id number])[facility] ([facility])[address] [place] [address] Platelet mean volume (Bld) [Entitic vol] 10.5 fL Normal 9.0-12.7 [facility] Comment on above: Performed By: #### L [id number] ####Director Of User Experience: WALESKA GUNTER ([id number])[facility] ([facility])[address] [place] [address] Platelets (Bld) [#/Vol] 254 10*3/uL Normal 140-440 [facility] Comment on above: Performed By: #### L [id number] ####Director Of User Experience: WALESKA GUNTER ([id number])[facility] ([facility])[address] [place] [address] RBC (Bld) [#/Vol] 3.77 10*6/uL Low 3.80-5.20 [facility] Comment on above: Performed By: #### L [id number] ####Director Of User Experience: WALESKA GUNTER ([id number])[facility] ([facility])[address] [place] [address] WBC (Bld) [#/Vol] 9.6 10*3/uL Normal 3.6-10.7 [facility] Comment on above: Performed By: #### L [id number] ####Director Of User Experience: WALESKA GUNTER ([id number])[facility] ([facility])[address] [place] [address] CT HEAD WO IV CONTRASTon CT HEAD WO IV CONTRAST Patient Name: AYALA BATRES : 1965 Exam Date/Time: 05/16/2023 21:22 Procedure: CT HEAD WO IV CONTRAST Ordering Provider: CATHLEEN, RAZ Reason For Exam: AMS CT HEAD: CLINICAL INDICATION: AMS. Recently unresponsive. TECHNIQUE: Transaxial CT sequence performed through the head with 3 mm reconstruction. Sagittal and Coronal reconstruction images included. Dose reduction was employed with automated exposure control. COMPARISON: None FINDINGS: Cerebral and cerebellar parenchyma: Mild diffuse cortical volume loss. No acute intraparenchymal hemorrhage. No midline shift. There appear to be mild chronic small vessel ischemic changes. Ventricles and Extra-axial spaces: Normal in size and morphology for the patient's age. No abnormal extracerebral collection identified. Visualized Paranasal sinuses: Minimal mucosal thickening in the left frontal sinus. Mastoid air cells: Normal. Visualized Orbits: Normal Calvarium and skull base: Normal IMPRESSION: No acute intracranial abnormality. Mild chronic small vessel ischemic changes. Report Dictated on Electronically Signed By: Isela Duran MD Electronically Signed Date/Time: 05/16/2023 9:44 PM EDT Normal [facility] CT Head WO contraston 2023 No acute intracrania l abnormality. Mild chronic small vessel ischemic changes. Report Dictated on Electronically Signed By: Isela Duran MD Electronically Signed Date/Time: 05/16/2023 9:44 PM EDT [facility] Patient Name: AYALA ARANDA : 1965 Exam Date/Time: 05/16/2023 21:22 Procedure: CT HEAD WO IV CONTRAST Ordering Provider: [facility] Reason For Exam: AMS CT HEAD: CLINICAL INDICATION: AMS. Recently unresponsive. TECHNIQUE: Transaxial CT sequence performed through the head with 3 mm reconstruction. Sagittal and Coronal reconstruction images included. Dose reduction was employed with automated exposure control. COMPARISON: None FINDINGS: Cerebral and cerebellar parenchyma: Mild diffuse cortical volume loss. No acute intraparenchymal hemorrhage. No midline shift. There appear to be mild chronic small vessel ischemic changes. Ventricles and Extra-axial spaces: Normal in size and morphology for the patient's age. No abnormal extracerebral collection identified. Visualized Paranasal sinuses: Minimal mucosal thickening in the left frontal sinus. Mastoid air cells: Normal. Visualized Orbits: Normal Calvarium and skull base: Normal [facility] Isela Duran M D - 05/16/2023 Patient Name: AYALA ARANDA : 1965 [facility] Manort#: [id number] Exam Date/Time: 05/16/2023 21:22 Procedure: CT HEAD WO IV CONTRAST Ordering Provider: [facility] Reason For Exam: AMS CT HEAD: CLINICAL INDICATION: AMS. Recently unresponsive. TECHNIQUE: Transaxial CT sequence performed through the head with 3 mm reconstruction. Sagittal and Coronal reconstruction images included. Dose reduction was employed with automated exposure control. COMPARISON: None FINDINGS: Cerebral and cerebellar parenchyma: Mild diffuse cortical volume loss. No acute intraparenchymal hemorrhage. No midline shift. There appear to be mild chronic small vessel ischemic changes. Ventricles and Extra-axial spaces: Normal in size and morphology for the patient's age. No abnormal extracerebral collection identified. Visualized Paranasal sinuses: Minimal mucosal thickening in the left frontal sinus. Mastoid air cells: Normal. Visualized Orbits: Normal Calvarium and skull base: Normal IMPRESSION: No acute intracranial abnormality. Mild chronic small vessel ischemic changes. Report Dictated on Electronically Signed By: Isela Duran MD Electronically Signed Date/Time: 05/16/2023 9:44 PM EDT [facility] Radiology Study observation (narrative) [facility] alth CT Head WO contrastOrdered B y: Isela Duran on 05-16-2023 [facility] [employer] Work Phone: ED Nursing Noteon 05-16-2023 ED Nursing Note Updated per patient request. Attempted to updated patients sister but no answer at this time. Delaney Patino RN 05/16/232116 [facility] ED Nursing Note BGT 104. Enedelia Boyer RN 05/16/232048 Normal [facility] ED Nursing Note EKG at bedside. Enedelia Boyer RN 05/16/232045 Normal [facility] ED Nursing Note Patient placed on cr rebecca cart pads. Enedelia Boyer RN 05/16/232044 [facility] ED Nursing Note Patient presents to ED 60 with EMS after being unresponsive in her home per family. Upon arrival of EMS, patient was breathing and talking. Patient was on the floor, when EMS stood her up and assisted her to the chair, she stated that she felt dizzy, nauseous, and tingling. Patients EKG revealed bradycardia, per EMS they believed she may have been in a block. Patient intermittently unresponsive with EMS. Patient states that she has been feeling unwell for approximately 3 weeks. Patient states that she bas been forgetting things. Patient states that she takes medications that are not listed in her chart. Patient denies any pain. [facility] ED Provider Noteon ED Provider Note EMERGENCY DEPARTMENT ENCOUNTER Pt Name: Ayala Aranda Birthdate 1965 Date of evaluation: 05/16/2023 ED Provider: Melyssa Salinas DO CHIEF COMPLAINT Chief Complaint Patient presents with Bradycardia Altered Mental Status HISTORY OF PRESENT ILLNESS (Location/Symptom, Timing/Onset, Context/Setting, Quality, Duration, Modifying Factors, Severity) Note limiting factors. I wore appropriate PPE for the entirety of this encounter. HPI Ayala Aranda is a 58 y.o. female, with PMHx significant for HTN, HLD, DM2, and fibromyalgia, who presents to the emergency department unresponsive episode. EMS explains that they were initially called by patient's family for an unresponsive episode but the patient was awake and alert on their arrival. En route to the ED they report a witnessed 2-3 minute episode of unresponsiveness with HR in the high 50s. EKG during the episode shows sinus bradycardia. Patient noted to have spontaneously returned to baseline with no loss of pulses or spontaneous respirations during the episode. Patient reports a few weeks of fatigue. Confirms facial tingling prior to the unresponsive episode that is now resolved.Denies fever, chills, cough, recent illness, chest pain, shortness of breath, abdominal pain, vomiting, diarrhea, constipation, black or bloody stools, leg swelling. Reports a history of thyroid disease but has been taking her Levothyroxine as prescribed with no missed doses. No recent medication changes and patient not on calcium channel preston or beta preston per records. Nursing Notes were reviewed. Limitations to history: None Outside historians: EMS REVIEW OF SYSTEMS Review of Systems Pertinent positives and negatives as per HPI. 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 COLONOSCOPY 04/2018 CYSTOSCOPY 03/17/2014 DR Luo. bilat urerteral stent placement. GASTRIC BYPASS 02/12/2018 LRYGB- Dr. Gomez [facility] HERNIA REPAIR 01/21/2019 Dr. Riley - [facility] General Surgery-retrorectus ventral repair w mesh. exp lap, BABATUNDE. HYSTERECTOMY 2007 low transverse INCISIONAL HERNIA REPAIR 02/03/2012 excision of syntheti mesh and use of Strattice with component separation. INCISIONAL HERNIA REPAIR 09/09/2011 [place] NECK SURGERY 2002 OTHER SURGICAL HISTORY 11/03/2019 panniculectomy with vac prevena placement UPPER GASTROINTESTINAL ENDOSCOPY 06/16/2017 PRE-OP PATRICIA UPPER GASTROINTESTINAL ENDOSCOPY 04/06/2018 CURRENT MEDICATIONS Current Discharge Medication List CONTINUE these medications which have NOT CHANGED Details Biotin 5 MG tablet dispersible Take 5,000 mcg by mouth in the morning. cholecalciferol (Vitamin D-3) 50 MCG (2000 UT) capsule Take 2,000 Units by mouth in the morning. cyanocobalamin (Vitamin B-12) 1000 MCG tablet Take 1,000 mcg by mouth in the morning. Docusate Sodium (DSS) 100 MG capsule Take 100 mg by mouth daily. ferrous sulfate 325 (65 Fe) MG tablet Take 325 mg by mouth daily (with breakfast). levothyroxine (Tirosint) 100 MCG capsule Take 100 mcg by mouth every morning (before breakfast). losartan (Cozaar) 25 MG tablet Take 25 mg by mouth Every 24 hours. rosuvastatin (Crestor) 20 MG tablet Take 20 mg by mouth daily. sertraline (Zoloft) 100 MG tablet Take 100 mg by mouth daily. ALLERGIES Diphenhydramine, Morphine, and Vancomycin FAMILY HISTORY Family History Problem Relation Name Age of Onset Hypertension Brother Heart disease Mother Hyperlipidemia Mother COPD Mother Bleeding Prob Mother Diabetes Mother Heart disease Father Hypertension Paternal Grandmother Hypertension Mother Colon cancer Neg Hx Diabetes Paternal Grandfather Hypertension Paternal Grandfather SOCIAL HISTORY Social History Socioeconomic History Marital status: Tobacco Use Smoking status: Never Smokeless tobacco: Never Substance and Sexual Activity Alcohol use: No Alcohol/week: 0.0 standard drinks of alcohol Drug use: No Social Determinants of Health Transportation Needs: No Transportation Needs (05/17/2023) PRAPARE - Transportation Lack o (more content not included)... Normal [facility] ED Provider Note Emergency Department Encounter [facility] EM[facility]GENCY [facility] Patient: Ayala Aranda : 1965 Date of Evaluation: 05/16/2023 ED Supervising Physician: Raz De La Torre MD I independently examined and evaluated Ayala Aranda. This will serve as my Supervisory note and shared attestation. I did perform a substantive portion of the visit including all aspects of the Medical Decision Making. I wore appropriate PPE for the entirety of this encounter. In brief, Ayala Aranda is a 58 y.o. that presents to the emergency department after having an episode of unconsciousness. EMS was called. When they arrived, she was talking, reported feeling nauseous, and had some facial tingling. She subsequently had an episode of unresponsiveness that lasted 3 minutes. She reports feeling unwell for approximately 3 weeks. She reports that she has had forgetfulness. She denies any chest pain or tightness. Focused exam: [id number], no acute distress, nontoxic-appearing HEENT- atraumatic, normocephalic Neck- no meningismus, no obvious masses Respiratory- bilateral breath sounds, no respiratory distress Cardiovascular- borderline bradycardic, well perfused Abdomen- soft, non-tender, no rebound or guarding MSK- normal muscle bulk, no gross deformities Skin- non-diaphoretic, no obvious rashes or lesions Neuro- alert, answering questions appropriately, CN2-12 grossly intact, moving all extremities Psych- calm, cooperative EKG interpreted by me: There is 16-24. Time 2045. Rate 57 sinus bradycardia. Normal axis. CECI 186, QRS 91, QTc 439. No STEMI. Independent historians: EMS Social determinants affecting care: None apparent Medical conditions affecting care: DM Escalation of care, appropriate for: Admission for syncope Brief ED course/MDM: 58-year-old female presenting after having an episode of unresponsiveness. She did not have a high degree heart block. She was hemodynamically stable. Her labs were largely reassuring. The etiology of her episode(s) of unresponsiveness is not clear. A CT of her head was reassuring. I have a low suspicion for CVA. I feel seizure is less likely. I think that the tingling that she reported was likely due to hypoperfusion due to pre-syncope/syncope, as opposed to a CVA. She has a history of diabetes, but was not hypoglycemic. She will be admitted for further workup of her syncope. Total Critical Care time was 5 minutes, excluding separately reportable procedures. There was a high probability of clinically significant/life threatening deterioration in the patient's condition which required my urgent intervention. All diagnostic, treatment, and disposition decisions were made by myself in conjunction with the Resident. I also supervised schrader portions of any procedures performed by the Resident. For all further details of the patient's emergency department visit, please see their documentation. (Comment: Please note this report has been produced using speech recognition software and may contain errors related to that system including errors in grammar, punctuation, and spelling, as well as words and phrases that may be inappropriate. If there are any questions or concerns please feel free to contact the dictating provider for clarification.) Raz De La Torre MD [employer] Raz De La Torre MD 05/16/23 2256 Normal [facility] FREE T4on 05-16-2023 Free T4 [Mass/Vol] 0.91 ng/dL Normal 0.78-2.19 [facility] Comment on above: Performed By: #### L [id number] ####Director Of User Experience: WALESKA GUNTER ([id number])[facility] [place] [address] Free T3 [Mass/Vol]on Interpretation and review of laboratory results Normal [facility] Free T4 [Mass/Vol]on Free T4 Dialysis [Mass/Vol] 0.91 ng/dL 0.78 - 2.19 ng/dL [facility] Interpretation and review of laboratory results Normal [facility] Laboratory - Chemistry and C hemistry - challengeon 05-16-2023 TSH Qn 2.677 m[IU]/L [facility] h Free T3 [Mass/Vol] 3.55 pg/mL 2.77 - 5. 27 pg/mL [facility] Troponin I.cardiac [Mass/Vol] ng/mL NINF - 0.034 ng/mL [facility] Glucose [Mass/Vol] 104 mg/dL High 70 - 100 mg/dL [facility] Laboratory - Drug toxicology on 05-16-2023 Acetaminophen [Mass/Vol] ug/mL Low 10.0 - 30.0 ug/mL [facility] No Panel Informationon 05-15 Interpretation and review of laboratory results Abnormal [facility] Interpretation and review of laboratory results Abnormal [facility] Performed by: [facility], [address] [place] [address] CLIA ID: [id number] [facility] Radiology Study observation (narrative) [facility] alth T3 FREEon 05-16-2023 Free T3 [Mass/Vol] 3.55 pg/mL Normal 2.77-5.27 [facility] Comment on above: Performed By: #### L AB43, LAB15, [id number], [id number], [id number], LAB67 ####Director Of User Experience: WALESKA GUNTER ([id number])[facility] ([facility])[address] [place] [address] THYROID STIMULATING HORMONEo n 05-16-2023 THYROID STIMULATING HORMONE 2.677 uIU/mL Normal 0.465-4.680 [facility] Comment on above: Performed By: #### L AB43, LAB15, [id number], [id number], [id number], LAB67 ####Director Of User Experience: WALESKA GUNTER ([id number])[facility])[address] [place] [address] TROPONIN, WITH SERIAL REFLEX on 05-16-2023 Troponin I.cardiac [Mass/Vol] ng/mL Normal <0.034 [facility] Comment on above: Result Comment: MARA Tinoco COMMENTS: Patients with high levels of Biotin oral intake (ie >5 mg/day) may have falsely decreased Troponin levels. Performed By: #### L AB43, LAB15, [id number], [id number], [id number], LAB67 ####Director Of User Experience: WALESKA GUNTER ([id number])[address] TSH Qnon 05-16-2023 Interpretation and review of laboratory results Normal [facility] Troponin I.cardiac [Mass/Vol ]on 05-16-2023 Interpretation and review of laboratory results Normal [facility] Patients with high levels of Biotin oral intake (ie >5 mg/day) may have falsely decreased Troponin levels. [facility] VITAMIN B12on 05-16-2023 Cobalamin (Vitamin B12) [Mass/Vol] 838 pg/mL Normal 239-931 [facility] Comment on above: Performed By: #### L AB43, LAB15, [id number], [id number], [id number], LAB67 ####Director Of User Experience: WALESKA GUNTER ([id number])[facility])[address] [place] [address] .Auto Diffon 04-02-2023 Basophil, Absolute 0.0 10 3/mcL Normal 0.0-0.2 [facility] ([place]) Comment on above: Performed By: #### L IP, CMP, ADIFF, GFR, MDW, CBC, ANEU #### [address] [address] Basophils/100 WBC (Bld) 0.4 % Normal 0.0-2.5 [facility] ([place]) Comment on above: Performed By: #### L IP, CMP, ADIFF, GFR, MDW, CBC, ANEU #### [address] [address] Eosinophil, Absolute 0.2 10 3/mcL Normal 0.0-0.4 [facility] ([place]) Comment on above: Performed By: #### L IP, CMP, ADIFF, GFR, MDW, CBC, ANEU #### [address] [address] Eosinophils/100 WBC (Bld) 2.1 % Normal 0.0-7.0 [facility] ([place]) Comment on above: Performed By: #### L IP, CMP, ADIFF, GFR, MDW, CBC, ANEU #### [address] [address] Lymphocyte, Absolute 2.8 10 3/mcL Normal 0.8-3.9 [facility] ([place]) Comment on above: Performed By: #### L IP, CMP, ADIFF, GFR, MDW, CBC, ANEU #### [address] [address] Lymphocytes/100 WBC (Bld) 37.5 % Normal 10.0-50.0 [facility] ([place]) Comment on above: Performed By: #### L IP, CMP, ADIFF, GFR, MDW, CBC, ANEU #### [address] [address] Monocyte, Absolute 0.5 10 3/mcL Normal 0.2-1.0 [facility] ([place]) Comment on above: Performed By: #### L IP, CMP, ADIFF, GFR, MDW, CBC, ANEU #### [address] [address] Monocytes/100 WBC (Bld) 6.9 % Normal 1.7-13.0 [facility] ([place]) Comment on above: Performed By: #### L IP, CMP, ADIFF, GFR, MDW, CBC, ANEU #### [address] [address] Neutrophils/100 WBC (Bld) 53.1 % Normal 37.0-80.0 [facility] ([place]) Comment on above: Performed By: #### L IP, CMP, ADIFF, GFR, MDW, CBC, ANEU #### [address] [address] .GFRon 04-02-2023 GFR Non- 105 ml/min/1.73sqm Normal [facility] ([place]) Comment on above: Result Comment: GFR Population mean for , Non- Americans Ages 20-29 = 116 mL/min/1.73 sq.m. Ages 30-39 = 107 mL/min/1.73 sq.m. Ages 40-49 = 99 mL/min/1.73 sq.m. Ages 50-59 = 93 mL/min/1.73 sq.m. Ages 60-69 = 85 mL/min/1.73 sq.m. Ages 70+ = 75 mL/min/1.73 sq.m. Chronic Kidney Disease: Less than 60 mL/min/1.73 square meters End Stage Renal Disease: Less than 15 mL/min/1.73 square meters Performed By: #### L IP, CMP, ADIFF, GFR, MDW, CBC, ANEU #### [address] [address] GFR 127 ml/min/1.73sqm Normal [facility] ([place]) Comment on above: Result Comment: GFR Population mean for , Non- Americans Ages 20-29 = 116 mL/min/1.73 sq.m. Ages 30-39 = 107 mL/min/1.73 sq.m. Ages 40-49 = 99 mL/min/1.73 sq.m. Ages 50-59 = 93 mL/min/1.73 sq.m. Ages 60-69 = 85 mL/min/1.73 sq.m. Ages 70+ = 75 mL/min/1.73 sq.m. Chronic Kidney Disease: Less than 60 mL/min/1.73 square meters End Stage Renal Disease: Less than 15 mL/min/1.73 square meters Performed By: #### L IP, CMP, ADIFF, GFR, MDW, CBC, ANEU #### [place] [address] .MDWon 04-02-2023 Monocyte Distribution Width 17.30 Normal 0.00-20.00 [facility] ([place]) Comment on above: Result Comment: For ED adult patients suspected of sepsis, MDW<=20.0 does not rule out sepsis or risk of sepsis Performed By: #### L IP, CMP, ADIFF, GFR, MDW, CBC, ANEU #### [place] [address] .NEUABSon 04-02-2023 Neutrophil, Absolute 4.0 10 3/mcL Normal 2.9-6.2 [facility] ([place]) Comment on above: Performed By: #### L IP, CMP, ADIFF, GFR, MDW, CBC, ANEU #### [place] [address] CBCon 04-02-2023 Erythrocyte distribution width (RBC) [Ratio] 12.9 % Normal 11.5-14.5 [facility] ([place]) Comment on above: Performed By: #### L IP, CMP, ADIFF, GFR, MDW, CBC, ANEU #### [place] [address] Hematocrit (Bld) [Volume fraction] 37.1 % Normal 37.0-47.0 [facility] ([place]) Comment on above: Performed By: #### L IP, CMP, ADIFF, GFR, MDW, CBC, ANEU #### [place] [address] Hgb 12.9 G/dL Normal 12.0-16.0 [facility] ([place]) Comment on above: Performed By: #### L IP, CMP, ADIFF, GFR, MDW, CBC, ANEU #### [place] [address] MCH (RBC) [Entitic mass] 30.7 pg Normal 27.0-31.2 [facility] ([place]) Comment on above: Performed By: #### L IP, CMP, ADIFF, GFR, MDW, CBC, ANEU #### [address] [address] MCHC 34.7 G/dL Normal 33.0-37.0 [facility] ([place]) Comment on above: Performed By: #### L IP, CMP, ADIFF, GFR, MDW, CBC, ANEU #### [address] [address] MCV (RBC) [Entitic vol] 88.5 fL Normal 80.0-94.0 [facility] ([place]) Comment on above: Performed By: #### L IP, CMP, ADIFF, GFR, MDW, CBC, ANEU #### [place] [id number] Platelet 300 10 3/mcL Normal 130-400 [facility] ([place]) Comment on above: Performed By: #### L IP, CMP, ADIFF, GFR, MDW, CBC, ANEU #### [address] [address] Platelet mean volume (Bld) [Entitic vol] 8.1 fL Normal 7.4-10.4 [facility] ([place]) Comment on above: Performed By: #### L IP, CMP, ADIFF, GFR, MDW, CBC, ANEU #### [place] [address] RBC 4.19 10 6/mcL Low 4.20-5.40 [facility] ([place]) Comment on above: Performed By: #### L IP, CMP, ADIFF, GFR, MDW, CBC, ANEU #### [address] [address] WBC 7.5 10 3/mcL Normal 4.6-10.8 [facility] ([place]) Comment on above: Performed By: #### L IP, CMP, ADIFF, GFR, MDW, CBC, ANEU #### [address] [address] CMPon 04-02-2023 Albumin Level 3.8 G/dL Normal 3.5-5.0 [facility] ([place]) Comment on above: Performed By: #### L IP, CMP, ADIFF, GFR, MDW, CBC, ANEU #### [address] [address] Albumin/Globulin [Mass ratio] 1.2 {ratio} Normal 1.1-2.5 [facility] ([place]) Comment on above: Performed By: #### L IP, CMP, ADIFF, GFR, MDW, CBC, ANEU #### [address] [address] ALP [Catalytic activity/Vol] 122 U/L Normal 40-135 [facility] ([place]) Comment on above: Performed By: #### L IP, CMP, ADIFF, GFR, MDW, CBC, ANEU #### [address] [address] ALT [Catalytic activity/Vol] 36 U/L Normal 14-59 [facility] ([place]) Comment on above: Performed By: #### L IP, CMP, ADIFF, GFR, MDW, CBC, ANEU #### [address] [address] AST [Catalytic activity/Vol] 24 U/L Normal 10-40 [facility] ([place]) Comment on above: Performed By: #### L IP, CMP, ADIFF, GFR, MDW, CBC, ANEU #### [address] [address] Bili Total 0.3 mg/dL Normal 0.2-1.0 [facility] ([place]) Comment on above: Result Comment: Use of this assay is not recommended for patients undergoing treatment with eltrombopag due to the potential for falsely elevated results. Performed By: #### L IP, CMP, ADIFF, GFR, MDW, CBC, ANEU #### [address] [address] BUN/Creatinine Ratio 27 ratio Normal 7-27 [facility] ([place]) Comment on above: Performed By: #### L IP, CMP, ADIFF, GFR, MDW, CBC, ANEU #### [address] [address] Calcium [Mass/Vol] 8.8 mg/dL Normal 8.4-10.2 [facility] ([place]) Comment on above: Performed By: #### L IP, CMP, ADIFF, GFR, MDW, CBC, ANEU #### [address] [address] Chloride [Moles/Vol] 109 mmol/L High 98-107 [facility] ([place]) Comment on above: Performed By: #### L IP, CMP, ADIFF, GFR, MDW, CBC, ANEU #### [address] [address] CO2 [Moles/Vol] 25 mmol/L Normal 22-29 [facility] ([place]) Comment on above: Performed By: #### L IP, CMP, ADIFF, GFR, MDW, CBC, ANEU #### [address] [address] Creatinine [Mass/Vol] 0.59 mg/dL Normal 0.55-1.02 [facility] ([place]) Comment on above: Performed By: #### L IP, CMP, ADIFF, GFR, MDW, CBC, ANEU #### [address] [address] Electrolyte Balance 12.0 mEq/L Normal 4.0-15.0 [facility] ([place]) Comment on above: Performed By: #### L IP, CMP, ADIFF, GFR, MDW, CBC, ANEU #### [address] [address] Globulin 3.3 G/dL Normal [facility] ([place]) Comment on above: Performed By: #### L IP, CMP, ADIFF, GFR, MDW, CBC, ANEU #### [address] [address] Glucose [Mass/Vol] 90 mg/dL Normal 70-105 [facility] ([place]) Comment on above: Performed By: #### L IP, CMP, ADIFF, GFR, MDW, CBC, ANEU #### [address] [address] Potassium [Moles/Vol] 3.9 mmol/L Normal 3.5-5.1 [facility]) Comment on above: Performed By: #### L IP, CMP, ADIFF, GFR, MDW, CBC, ANEU #### [address] [address] Sodium [Moles/Vol] 146 mmol/L High 136-145 [facility] ([place]) Comment on above: Performed By: #### L IP, CMP, ADIFF, GFR, MDW, CBC, ANEU #### [address] [address] Total Protein 7.1 G/dL Normal 6.4-8.2 [facility]) Comment on above: Performed By: #### L IP, CMP, ADIFF, GFR, MDW, CBC, ANEU #### [address] [address] Urea nitrogen [Mass/Vol] 16 mg/dL Normal 7-18 [facility]) Comment on above: Performed By: #### L IP, CMP, ADIFF, GFR, MDW, CBC, ANEU #### [address] [address] [address] ABD/PELVIS W/ IV CONTRAST ONLYon 04-02-2023 CT ABD/PELVIS W/ IV CONTRAST ONLY ORIGINAL EXAMINATION: CT OF THE ABDOMEN AND PELVIS WITH CONTRAST04/02/2023 9:26 pm TECHNIQUE: CT of the abdomen and pelvis was performed with the administration of intravenous contrast. Multiplanar reformatted images are provided for review. Automated exposure control, iterative reconstruction, and/or weight based adjustment of the mA/kV was utilized to reduce the radiation dose to as low as reasonably achievable. COMPARISON: 05/10/2021. 03/30/2020. HISTORY: ORDERING SYSTEM PROVIDED HISTORY: Reason for Exam: pain FINDINGS: Liver, spleen, and adrenals. Prior cholecystectomy. Pancreatic head 1.8 cm cyst has been previously characterized on MRI. Nonobstructive left nephrolithiasis. No obstructive uropathy. Symmetric bilateral renal enhancement. Prior gastric surgery. Atherosclerotic but nonaneurysmal abdominal aorta. There is gaseous distension of the cecum but it is not considered pathologic per size criteria. Normal appendix. There is no overt evidence of bowel obstruction. Small bowel appears within normal limits. No free air or free fluid. Mid left hemiabdomen area of mesenteric haziness with a few nonenlarged lymph nodes in close proximity (series 2, image 66). This is new since prior CT. The urinary bladder is well-distended without wall thickening or focal mass. Prior hysterectomy. No acute soft tissue bony abnormality. Prior lumbar surgery. Minimal bibasilar atelectasis. 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 Recommend follow-up in 8-12 weeks to assess for resolution, as there are additional differential considerations which could result in this imaging appearance. Stable appearing pancreatic cyst, previously characterized on MRI. I have personally reviewed the images of this examination and agree with the resident's findings and interpretation. Interpreted by: Vinicio Griffin Preliminary Report By: Kurt Mccauley Electronically signed By Vinicio Griffin Dictated Date: 04/02/2023 9:38:08 PM Prelim Date: 04/02/2023 9:47:34 PM Sign Date: 04/02/2023 10:01:18 PM Ordering Provider: KURT Quinn [facility] ([place]) LABORATORYOrdered By: SYSTEM SYSTEM on 04-02-2023 Albumin BCP dye [Mass/Vol] 3.8 G/dL Normal 3.5 - 5.0 G/dL AO ADM SS Albumin/Globulin [Mass ratio] 1.2 {ratio} Normal 1.1 - 2.5 ratio AO ADM SS ALP [Catalytic activity/Vol] 122 U/L Normal 40 - 135 U/L AO ADM SS ALT With P-5'-P [Catalytic activity/Vol] 36 U/L Normal 14 - 59 U/L AO ADM SS AST With P-5'-P [Catalytic activity/Vol] 24 U/L Normal 10 - 40 U/L AO ADM SS Basophil, Absolute 0.0 103/mcL Normal 0.0 - 0.2 10^3/mcL AO Workflow SS Basophils/100 WBC (Bld) 0.4 % Normal 0.0 - 2.5 % AO Workflow SS Bilirubin [Mass/Vol] 0.3 mg/dL Normal 0.2 - 1 .0 mg/dL AO ADM SS Comment on above: Interpretive Data: U se of this assay is not recommended for patients undergoing treatment with eltrombopag due to the potential for falsely elevated results. Calcium [Mass/Vol] 8.8 mg/dL Normal 8.4 - 10. 2 mg/dL AO ADM SS Chloride [Moles/Vol] 109 mmol/L High 98 - 10 7 mmol/L AO ADM SS CO2 [Moles/Vol] 25 mmol/L Normal 22 - 29 mmol/L AO ADM SS Creatinine [Mass/Vol] 0.59 mg/dL Normal 0.55 - 1.02 mg/dL AO ADM SS Electrolyte Balance 12.0 mEq/L Normal 4.0 - 15 .0 mEq/L AO ADM SS Eosinophil, Absolute 0.2 103/mcL Normal 0.0 - 0 .4 10^3/mcL AO Workflow SS Eosinophils/100 WBC (Bld) 2.1 % Normal 0.0 - 7.0 % AO Workflow SS Erythrocyte distribution width (RBC) [Ratio] 12.9 % Normal 11.5 - 14.5 % AO Workflow SS GFR/1.73 sq M.predicted among blacks MDRD (S/P/Bld) [Vol rate/Area] 127 ml/min/1.73sqm Invalid Interpretation Code AO Chemistry S Comment on above: Interpretive Data: GFR Population mean for , Non- Americans Ages 20-29 = 116 mL/min/1.73 sq.m. Ages 30-39 = 107 mL/min/1.73 sq.m. Ages 40-49 = 99 mL/min/1.73 sq.m. Ages 50-59 = 93 mL/min/1.73 sq.m. Ages 60-69 = 85 mL/min/1.73 sq.m. Ages 70+ = 75 mL/min/1.73 sq.m. Chronic Kidney Disease: Less than 60 mL/min/1.73 square meters End Stage Renal Disease: Less than 15 mL/min/1.73 square meters GFR/1.73 sq M.predicted among non-blacks MDRD (S/P/Bld) [Vol rate/Area] 105 ml/min/1.73sqm Invalid Interpretation Code AO Chemistry S Comment on above: Interpretive Data: GFR Population mean for , Non- Americans Ages 20-29 = 116 mL/min/1.73 sq.m. Ages 30-39 = 107 mL/min/1.73 sq.m. Ages 40-49 = 99 mL/min/1.73 sq.m. Ages 50-59 = 93 mL/min/1.73 sq.m. Ages 60-69 = 85 mL/min/1.73 sq.m. Ages 70+ = 75 mL/min/1.73 sq.m. Chronic Kidney Disease: Less than 60 mL/min/1.73 square meters End Stage Renal Disease: Less than 15 mL/min/1.73 square meters Globulin 3.3 G/dL Invalid Interpretation Code AO ADM SS Glucose [Mass/Vol] 90 mg/dL Normal 70 - 105 mg/dL AO ADM SS Hematocrit (Bld) [Volume fraction] 37.1 % Normal 37.0 - 47.0 % AO Workflow SS Hemoglobin (Bld) [Mass/Vol] 12.9 G/dL Normal 12.0 - 16.0 G/dL AO Workflow SS Lipase [Catalytic activity/Vol] 50 U/L Normal 16 - 77 U/L AO ADM SS Lymphocyte, Absolute 2.8 103/mcL Normal 0.8 - 3 .9 10^3/mcL AO Workflow SS Lymphocytes/100 WBC (Bld) 37.5 % Normal 10.0 - 50.0 % AO Workflow SS MCH (RBC) [Entitic mass] 30.7 pg Normal 27.0 - 31.2 pg AO Workflow SS MCHC 34.7 G/dL Normal 33.0 - 37.0 G/dL AO Workflow SS MCV (RBC) [Entitic vol] 88.5 fL Normal 80.0 - 94.0 fL AO Workflow SS Monocyte distribution width Auto (Bld) [Entitic vol] 17.30 1 Normal 0.00 - 20.00 AO Workflow SS Comment on above: Result Comment: For ED adult patients suspected of sepsis, MDW<=20.0 does not rule out sepsis or risk of sepsis Monocyte, Absolute 0.5 103/mcL Normal 0.2 - 1.0 10^3/mcL AO Workflow SS Monocytes/100 WBC (Bld) 6.9 % Normal 1.7 - 13.0 % AO Workflow SS Neutrophil, Absolute 4.0 103/mcL Normal 2.9 - 6 .2 10^3/mcL AO Workflow SS Neutrophils/100 WBC (Bld) 53.1 % Normal 37.0 - 80.0 % AO Workflow SS Platelet mean volume (Bld) [Entitic vol] 8.1 fL Normal 7.4 - 10.4 fL AO Workflow SS Platelets (Bld) [#/Vol] 300 103/mcL Normal 130 - 400 10^3/mcL AO Workflow SS Potassium [Moles/Vol] 3.9 mmol/L Normal 3.5 - 5.1 mmol/L AO ADM SS Protein [Mass/Vol] 7.1 G/dL Normal 6.4 - 8.2 G/dL AO ADM SS RBC (Bld) [#/Vol] 4.19 106/mcL Low 4.20 - 5.4 0 10^6/mcL AO Workflow SS Sodium [Moles/Vol] 146 mmol/L High 136 - 145 mmol/L AO ADM SS Urea nitrogen [Mass/Vol] 16 mg/dL Normal 7 - 18 mg/dL AO ADM SS Urea nitrogen/Creatinine [Mass ratio] 27 ratio Normal 7 - 27 ratio AO ADM SS WBC (Bld) [#/Vol] 7.5 103/mcL Normal 4.6 - 10.8 10^3/mcL AO Workflow SS LIPon 04-02-2023 Lipase Level 50 U/L Normal 16-77 [facility] ([place]) Comment on above: Performed By: #### L IP, CMP, ADIFF, GFR, MDW, CBC, ANEU #### [address] [address] B1WBon 03-14-2023 Vitamin B1 Whl Bld 99.9 nmol/L Normal 66.5-200.0 [facility] ([place]) Comment on above: Result Comment: This test was developed and its performance characteristics determined by [facility]. It has not been cleared or approved by the Food and Drug Administration. Performed At: [address] [id number] Neo Ji MD Ph:[phone] Performed By: #### L IP, CMP, ADIFF, GFR, MDW, CBC, ANEU #### [place] [address] [address] ZINCon 03-13-2023 Zinc Lvl 66 UG/DL Normal 44-115 [facility] ([place]) Comment on above: Result Comment: This test was developed and its performance characteristics determined by [facility] It has not been cleared or approved by the Food and Drug Administration. Detection Limit = 5 Performed At: [facility] [address] [id number] Neo Ji MD Ph:[phone] Performed By: #### [id number] #### [address] [address] .Auto Diffon 03-11-2023 Basophil, Absolute 0.0 10 3/mcL Normal 0.0-0.2 [facility] ([place]) Comment on above: Performed By: #### L IP, CMP, ADIFF, GFR, MDW, CBC, ANEU #### [address] [address] Basophils/100 WBC (Bld) 0.6 % Normal 0.0-2.5 [facility] ([place]) Comment on above: Performed By: #### L IP, CMP, ADIFF, GFR, MDW, CBC, ANEU #### [address] [address] Eosinophil, Absolute 0.1 10 3/mcL Normal 0.0-0.4 [facility] ([place]) Comment on above: Performed By: #### L IP, CMP, ADIFF, GFR, MDW, CBC, ANEU #### [address] [address] Eosinophils/100 WBC (Bld) 2.1 % Normal 0.0-7.0 [facility] ([place]) Comment on above: Performed By: #### L IP, CMP, ADIFF, GFR, MDW, CBC, ANEU #### [address] [address] Lymphocyte, Absolute 2.1 10 3/mcL Normal 0.8-3.9 [facility] ([place]) Comment on above: Performed By: #### L IP, CMP, ADIFF, GFR, MDW, CBC, ANEU #### [address] [address] Lymphocytes/100 WBC (Bld) 32.3 % Normal 10.0-50.0 [facility] ([place]) Comment on above: Performed By: #### L IP, CMP, ADIFF, GFR, MDW, CBC, ANEU #### [address] [address] Monocyte, Absolute 0.4 10 3/mcL Normal 0.2-1.0 [facility] ([place]) Comment on above: Performed By: #### L IP, CMP, ADIFF, GFR, MDW, CBC, ANEU #### [address] [address] Monocytes/100 WBC (Bld) 6.8 % Normal 1.7-13.0 [facility] ([place]) Comment on above: Performed By: #### L IP, CMP, ADIFF, GFR, MDW, CBC, ANEU #### [address] [address] Neutrophils/100 WBC (Bld) 58.2 % Normal 37.0-80.0 [facility] ([place]) Comment on above: Performed By: #### L IP, CMP, ADIFF, GFR, MDW, CBC, ANEU #### [address] [address] .GFRon 03-11-2023 GFR 166 ml/min/1.73sqm Normal [facility] ([place]) Comment on above: Result Comment: GFR Population mean for , Non- Americans Ages 20-29 = 116 mL/min/1.73 sq.m. Ages 30-39 = 107 mL/min/1.73 sq.m. Ages 40-49 = 99 mL/min/1.73 sq.m. Ages 50-59 = 93 mL/min/1.73 sq.m. Ages 60-69 = 85 mL/min/1.73 sq.m. Ages 70+ = 75 mL/min/1.73 sq.m. Chronic Kidney Disease: Less than 60 mL/min/1.73 square meters End Stage Renal Disease: Less than 15 mL/min/1.73 square meters Performed By: #### L IP, CMP, ADIFF, GFR, MDW, CBC, ANEU #### [address] [address] GFR Non- 137 ml/min/1.73sqm Normal [facility] ([place]) Comment on above: Result Comment: GFR Population mean for , Non- Americans Ages 20-29 = 116 mL/min/1.73 sq.m. Ages 30-39 = 107 mL/min/1.73 sq.m. Ages 40-49 = 99 mL/min/1.73 sq.m. Ages 50-59 = 93 mL/min/1.73 sq.m. Ages 60-69 = 85 mL/min/1.73 sq.m. Ages 70+ = 75 mL/min/1.73 sq.m. Chronic Kidney Disease: Less than 60 mL/min/1.73 square meters End Stage Renal Disease: Less than 15 mL/min/1.73 square meters Performed By: #### L IP, CMP, ADIFF, GFR, MDW, CBC, ANEU #### [address] [address] .NEUABSon 03-11-2023 Neutrophil, Absolute 3.8 10 3/mcL Normal 2.9-6.2 [facility] ([place]) Comment on above: Performed By: #### L IP, CMP, ADIFF, GFR, MDW, CBC, ANEU #### [address] [address] A1Con 03-11-2023 HbA1c (Bld) [Mass fraction] 4.7 % Normal 4.3-6.4 [facility] ([place]) Comment on above: Performed By: #### L IP, CMP, ADIFF, GFR, MDW, CBC, ANEU #### [address] [address] B12on 03-11-2023 Cobalamin (Vitamin B12) [Mass/Vol] 492 pg/mL Normal 211-911 [facility] ([place]) Comment on above: Performed By: #### L IP, CMP, ADIFF, GFR, MDW, CBC, ANEU #### [address] [address] CBCon 03-11-2023 Erythrocyte distribution width (RBC) [Ratio] 13.0 % Normal 11.5-14.5 [facility] ([place]) Comment on above: Performed By: #### L IP, CMP, ADIFF, GFR, MDW, CBC, ANEU #### [place] [address] Hematocrit (Bld) [Volume fraction] 38.9 % Normal 37.0-47.0 [facility] ([place]) Comment on above: Performed By: #### L IP, CMP, ADIFF, GFR, MDW, CBC, ANEU #### [place] [address] Hgb 13.3 G/dL Normal 12.0-16.0 [facility] ([place]) Comment on above: Performed By: #### L IP, CMP, ADIFF, GFR, MDW, CBC, ANEU #### [address] [address] MCH (RBC) [Entitic mass] 30.4 pg Normal 27.0-31.2 [facility] ([place]) Comment on above: Performed By: #### L IP, CMP, ADIFF, GFR, MDW, CBC, ANEU #### [address] [address] MCHC 34.2 G/dL Normal 33.0-37.0 [facility] ([place]) Comment on above: Performed By: #### L IP, CMP, ADIFF, GFR, MDW, CBC, ANEU #### [place] [address] MCV (RBC) [Entitic vol] 88.9 fL Normal 80.0-94.0 [facility] ([place]) Comment on above: Performed By: #### L IP, CMP, ADIFF, GFR, MDW, CBC, ANEU #### [place] [address] Platelet 309 10 3/mcL Normal 130-400 [facility] ([place]) Comment on above: Performed By: #### L IP, CMP, ADIFF, GFR, MDW, CBC, ANEU #### [address] [address] Platelet mean volume (Bld) [Entitic vol] 8.9 fL Normal 7.4-10.4 [facility] ([place]) Comment on above: Performed By: #### L IP, CMP, ADIFF, GFR, MDW, CBC, ANEU #### [address] [address] RBC 4.38 10 6/mcL Normal 4.20-5.40 [facility] ([place]) Comment on above: Performed By: #### L IP, CMP, ADIFF, GFR, MDW, CBC, ANEU #### [address] [address] WBC 6.5 10 3/mcL Normal 4.6-10.8 [facility] ([place]) Comment on above: Performed By: #### L IP, CMP, ADIFF, GFR, MDW, CBC, ANEU #### [address] [address] CMPon 03-11-2023 Albumin Level 3.9 G/dL Normal 3.5-5.0 [facility] ([place]) Comment on above: Performed By: #### L IP, CMP, ADIFF, GFR, MDW, CBC, ANEU #### [address] [address] Albumin/Globulin [Mass ratio] 1.1 {ratio} Normal 1.1-2.5 [facility]) Comment on above: Performed By: #### L IP, CMP, ADIFF, GFR, MDW, CBC, ANEU #### [address] [address] ALP [Catalytic activity/Vol] 136 U/L High 40-135 [facility] ([place]) Comment on above: Performed By: #### L IP, CMP, ADIFF, GFR, MDW, CBC, ANEU #### [address] [place] [address] ALT [Catalytic activity/Vol] 23 U/L Normal 14-59 [facility] ([place]) Comment on above: Performed By: #### L IP, CMP, ADIFF, GFR, MDW, CBC, ANEU #### [address] [address] AST [Catalytic activity/Vol] 25 U/L Normal 10-40 [facility] ([place]) Comment on above: Performed By: #### L IP, CMP, ADIFF, GFR, MDW, CBC, ANEU #### [address] [address] Bili Total 0.6 mg/dL Normal 0.2-1.0 [facility] ([place]) Comment on above: Result Comment: Use of this assay is not recommended for patients undergoing treatment with eltrombopag due to the potential for falsely elevated results. Performed By: #### L IP, CMP, ADIFF, GFR, MDW, CBC, ANEU #### [address] [address] BUN/Creatinine Ratio 38 ratio High 7-27 [facility] ([place]) Comment on above: Performed By: #### L IP, CMP, ADIFF, GFR, MDW, CBC, ANEU #### [address] [address] Calcium [Mass/Vol] 9.0 mg/dL Normal 8.4-10.2 [facility] ([place]) Comment on above: Performed By: #### L IP, CMP, ADIFF, GFR, MDW, CBC, ANEU #### [address] [address] Chloride [Moles/Vol] 105 mmol/L Normal 98-107 [facility] ([place]) Comment on above: Performed By: #### L IP, CMP, ADIFF, GFR, MDW, CBC, ANEU #### [address] [address] CO2 [Moles/Vol] 26 mmol/L Normal 22-29 [facility] ([place]) Comment on above: Performed By: #### L IP, CMP, ADIFF, GFR, MDW, CBC, ANEU #### [address] [address] Creatinine [Mass/Vol] 0.47 mg/dL Low 0.55-1.02 [facility] ([place]) Comment on above: Performed By: #### L IP, CMP, ADIFF, GFR, MDW, CBC, ANEU #### [address] [address] Electrolyte Balance 12.0 mEq/L Normal 4.0-15.0 [facility] ([place]) Comment on above: Performed By: #### L IP, CMP, ADIFF, GFR, MDW, CBC, ANEU #### [address] [address] Globulin 3.4 G/dL Normal [facility] ([place]) Comment on above: Performed By: #### L IP, CMP, ADIFF, GFR, MDW, CBC, ANEU #### [address] [address] Glucose [Mass/Vol] 99 mg/dL Normal 70-105 [facility] ([place]) Comment on above: Performed By: #### L IP, CMP, ADIFF, GFR, MDW, CBC, ANEU #### [address] [address] Potassium [Moles/Vol] 4.5 mmol/L Normal 3.5-5.1 [facility] ([place]) Comment on above: Performed By: #### L IP, CMP, ADIFF, GFR, MDW, CBC, ANEU #### [address] [address] Sodium [Moles/Vol] 143 mmol/L Normal 136-145 [facility] ([place]) Comment on above: Performed By: #### L IP, CMP, ADIFF, GFR, MDW, CBC, ANEU #### [address] [address] Total Protein 7.3 G/dL Normal 6.4-8.2 [facility] ([place]) Comment on above: Performed By: #### L IP, CMP, ADIFF, GFR, MDW, CBC, ANEU #### [address] [address] Urea nitrogen [Mass/Vol] 18 mg/dL Normal 7-18 [facility] ([place]) Comment on above: Performed By: #### L IP, CMP, ADIFF, GFR, MDW, CBC, ANEU #### [address] [address] [place] 03-11-2023 Ferritin [Mass/Vol] 20.0 ng/mL Normal 8.0-252.0 [facility] ([place]) Comment on above: Performed By: #### L IP, CMP, ADIFF, GFR, MDW, CBC, ANEU #### [address] [address] FOLon 03-11-2023 Folate 11.63 ng/mL Normal 5.38-24.00 [facility] ([place]) Comment on above: Performed By: #### L IP, CMP, ADIFF, GFR, MDW, CBC, ANEU #### [address] [address] FT3on 03-11-2023 Free T3 [Mass/Vol] 3.08 pg/mL Normal 2.30-4.00 [facility] ([place]) Comment on above: Performed By: #### L IP, CMP, ADIFF, GFR, MDW, CBC, ANEU #### [address] [address] FT4on 03-11-2023 Free T4 [Mass/Vol] 0.80 ng/dL Normal 0.76-1.46 [facility] ([place]) Comment on above: Performed By: #### L IP, CMP, ADIFF, GFR, MDW, CBC, ANEU #### [address] [address] LIPIDon 03-11-2023 Cholesterol [Mass/Vol] 180 mg/dL Normal 0-200 [facility] ([place]) Comment on above: Result Comment: Chol esterol Reference Interval: Less than 200 Desirable 200-239 Borderline high risk 240 and above High risk Performed By: #### L IP, CMP, ADIFF, GFR, MDW, CBC, ANEU #### [address] [address] Cholesterol in HDL [Mass/Vol] 60 mg/dL Normal 40-60 [facility] ([place]) Comment on above: Performed By: #### L IP, CMP, ADIFF, GFR, MDW, CBC, ANEU #### [address] [address] Cholesterol in LDL [Mass/Vol] 97 mg/dL Normal 0-130 [facility] ([place]) Comment on above: Performed By: #### L IP, CMP, ADIFF, GFR, MDW, CBC, ANEU #### [address] [address] Triglyceride [Mass/Vol] 113 mg/dL Normal 0-150 [facility] ([place]) Comment on above: Result Comment: Trig lyceride Reference Interval: Less than 150 Normal 150-199 Borderline high risk 200-499 High risk 500 or higher Very high risk Performed By: #### L IP, CMP, ADIFF, GFR, MDW, CBC, ANEU #### [address] [address] MALBRon 03-11-2023 U Creatinine 116.5 mg/dL Normal 28.0-117.0 [facility] ([place]) Comment on above: Performed By: #### L IP, CMP, ADIFF, GFR, MDW, CBC, ANEU #### [address] [address] U Microalb 1550 mcg/dL Normal [facility] ([place]) Comment on above: Performed By: #### L IP, CMP, ADIFF, GFR, MDW, CBC, ANEU #### [address] [address] U Ratio Alb/Cre 13 mcg/mg Normal 0-30 [facility] ([place]) Comment on above: Performed By: #### L IP, CMP, ADIFF, GFR, MDW, CBC, ANEU #### [address] [address] TSHon 03-11-2023 TSH Qn 6.72 m[IU]/L High 0.36-3.74 [facility] ([place]) Comment on above: Performed By: #### L IP, CMP, ADIFF, GFR, MDW, CBC, ANEU #### [place] [address] [place], [place] [address] VIDHon 03-11-2023 Vit. D 25-Hydroxy 26.8 ng/mL Normal [facility] ([place]) Comment on above: Result Comment: Inte rpretive Values Based on Total 25(OH) Vitamin D: Deficient <20 ng/mL Insufficient 20 - <30 ng/mL Sufficient 30-100 ng/mL Performed By: #### L IP, CMP, ADIFF, GFR, MDW, CBC, ANEU #### [address] [address] LABORATORYOrdered By: Yessi Blanton on 09-26-2021 Basophil, Absolute 0.0 103/mcL Invalid Interpretation Code 0.0 - 0.2 10^3/mcL AO Workflow SS Basophils/100 WBC (Bld) 0.8 % Invalid Interpretation Code 0.0 - 2.5 % AO Workflow SS Eosinophil, Absolute 0.2 103/mcL Invalid Interpretation Code 0.0 - 0.4 10^3/mcL AO Workflow SS Eosinophils/100 WBC (Bld) 3.2 % Invalid Interpretation Code 0.0 - 7.0 % AO Workflow SS Erythrocyte distribution width (RBC) [Ratio] 12.9 % Invalid Interpretation Code 11.5 - 14.5 % AO Workflow SS Hematocrit (Bld) [Volume fraction] 38.5 % Invalid Interpretation Code 37.0 - 47.0 % AO Workflow SS Hemoglobin (Bld) [Mass/Vol] 13.2 G/dL Invalid Interpretation Code 12.0 - 16.0 G/dL AO Workflow SS Lymphocyte, Absolute 1.5 103/mcL Invalid Interpretation Code 0.8 - 3.9 10^3/mcL AO Workflow SS Lymphocytes/100 WBC (Bld) 30.6 % Invalid Interpretation Code 10.0 - 50.0 % AO Workflow SS MCH (RBC) [Entitic mass] 30.4 pg Invalid Interpretation Code 27.0 - 31.2 pg AO Workflow SS MCHC 34.1 G/dL Invalid Interpretation Code 33.0 - 37.0 G/dL AO Workflow SS MCV (RBC) [Entitic vol] 89.0 fL Invalid Interpretation Code 80.0 - 94.0 fL AO Workflow SS Monocyte, Absolute 0.5 103/mcL Invalid Interpretation Code 0.2 - 1.0 10^3/mcL AO Workflow SS Monocytes/100 WBC (Bld) 10.1 % Invalid Interpretation Code 1.7 - 13.0 % AO Workflow SS Neutrophil, Absolute 2.8 103/mcL Invalid Interpretation Code 2.9 - 6.2 10^3/mcL AO Workflow SS Neutrophils/100 WBC (Bld) 55.3 % Invalid Interpretation Code 37.0 - 80.0 % AO Workflow SS Platelet mean volume (Bld) [Entitic vol] 8.6 fL Invalid Interpretation Code 7.4 - 10.4 fL AO Workflow SS Platelets (Bld) [#/Vol] 310 103/mcL Invalid Interpretation Code 130 - 400 10^3/mcL AO Workflow SS RBC (Bld) [#/Vol] 4.33 106/mcL Invalid Interpretation Code 4.20 - 5.40 10^6/mcL AO Workflow SS WBC 5.0 103/mcL Invalid Interpretation Code 4.6 - 10.8 10^3/mcL AO Workflow SS LABORATORYOrdered By: Eunice Ferreira on 09-26-2021 Calcium [Mass/Vol] 8.8 mg/dL Invalid Interpretation Code 8.4 - 10.2 mg/dL AO ADM SS Chloride [Moles/Vol] 105 mmol/L Invalid Interpretation Code 98 - 107 mmol/L AO ADM SS CO2 [Moles/Vol] 30 mmol/L Invalid Interpretation Code 22 - 29 mmol/L AO ADM SS Creatinine [Mass/Vol] 0.54 mg/dL Invalid Interpretation Code 0.55 - 1.02 mg/dL AO ADM SS Electrolyte Balance 7.0 mEq/L Invalid Interpretation Code 4.0 - 15.0 mEq/L AO ADM SS Glucose [Mass/Vol] 75 mg/dL Invalid Interpretation Code 70 - 105 mg/dL AO ADM SS HbA1c (Bld) [Mass fraction] 5.0 % Invalid Interpretation Code 4.3 - 6.4 % AO ADM SS Potassium [Moles/Vol] 4.1 mmol/L Invalid Interpretation Code 3.5 - 5.1 mmol/L AO ADM SS Sodium [Moles/Vol] 142 mmol/L Invalid Interpretation Code 136 - 145 mmol/L AO ADM SS TSH Qn 6.13 m[IU]/L Invalid Interpretation Code 0.36 - 3.74 mcIU/mL AO ADM SS Urea nitrogen [Mass/Vol] 13 mg/dL Invalid Interpretation Code 7 - 18 mg/dL AO ADM SS Urea nitrogen/Creatinine [Mass ratio] 24 ratio Invalid Interpretation Code 7 - 27 ratio AO ADM SS LABORATORYOrdered By: SYSTEM SYSTEM on 09-26-2021 GFR 142 ml/min/1.73sqm Invalid Interpretation Code AO Chemistry S GFR Non- 117 ml/min/1.73sqm Invalid Interpretation Code AO Chemistry S Monocyte distribution width Auto (Bld) [Entitic vol] Not Performed 1 *NA* (09/26/21 10:50 AM) Invalid Interpretation Code 0.00 - 20.00 AO Hematology S Comment on above: Result Comment: MDW testing performed only on adult ER patients between the ages of 18-89 years. LABORATORYOrdered By: Kat Tucker on 09-11-2021 Appearance (U) Turbid *ABN* (09/11/21 3:25 PM) Invalid Interpretation Code Clear AO Auto Urine SS Bilirubin Ql (U) Negative (09/11/21 3:25 PM) Invalid Interpretation Code Negative AO Auto Urine SS Color (U) Red *ABN* (09/11/21 3:25 PM) Invalid Interpretation Code AO Auto Urine SS Glucose Test strip (U) [Mass/Vol] Negative Invalid Interpretation Code Negativemg/ dL AO Auto Urine SS Hemoglobin Auto test strip (U) [Mass/Vol] Large *ABN* (09/11/21 3:25 PM) Invalid Interpretation Code Negative AO Auto Urine SS Ketones Ql (U) Negative Invalid Interpretation Code Negativemg/ dL AO Auto Urine SS UA Leuk Est Small *ABN* (09/11/21 3:25 PM) Invalid Interpretation Code Negative AO Auto Urine SS UA Nitrite Positive *ABN* (09/11/21 3:25 PM) Invalid Interpretation Code Negative AO Auto Urine SS UA pH 7.0 (09/11/21 3:25 PM) Invalid Interpretation Code 5.0 - 8.0 AO Auto Urine SS UA Protein 100 mg/dL Invalid Interpretation Code Negativemg/ dL AO Auto Urine SS UA RBC LOADED /HPF Invalid Interpretation Code None Seen/HPF AO Auto Urine SS UA Spec Grav 1.025 (09/11/21 3:25 PM) Invalid Interpretation Code 1.015-1.025 AO Auto Urine SS UA Specimen Type Void (09/11/21 3:25 PM) Invalid Interpretation Code AO Auto Urine SS UA Squam Epithelial 0-5 /HPF Invalid Interpretation Code None Seen/HPF AO Auto Urine SS UA Urobilinogen 1.0 E.U./dL Invalid Interpretation Code 0.2-1.0E.U. /dL AO Auto Urine SS WBC LM.HPF (Urine sed) [#/Area] 0-5 /HPF Invalid Interpretation Code None Seen/HPF AO Auto Urine SS No Panel Informationon 09-11 Culture Urine >100,000 cfu/ml Multiple bacterial morphotypes present. Probable Contamination. Suggest recollection if clinically indicated. [facility] Work Phone: ALLIED HEALTHon 08-27-2021 [facility] HNO ID: [id number] Author: AUSTIN Santiago Service: Radiology Author Type: Technologist Type: Allied [facility] Filed: 08/27/2021 9:27 PM Note Text: Radiology Service Progress Note PATIENT NAME: Ayala Aranda DATE OF SERVICE: August 27, 2021 TIME: 9:27 PM PATIENT IDENTITY VERIFICATION COMPLETED USING TWO (2) IDENTIFIERS: Name and Date of confirmed by patient verbally and Name and Date of confirmed by identification band. FALL SCREENING: Has the patient had 2 falls in the last year or 1 fall with injury or currently using an Ambulatory Assistive Device (Walker, Cane, Wheelchair, Crutches, etc.)? Emergency Room Patient: Screened in ED PATIENT GENDER DATA: Female. status: : No status: NO. PATIENT RELEVANT IMPLANT DATA REVIEWED: Not Applicable RADIOLOGY DEPARTMENT: CT; Exam(s) Completed: Abdomen/Pelvis PERIPHERAL IV DATA: Not applicable SIGNED BY: AUSTIN Santiago August 27, 2021 9:[address] [facility] Bacteria Ur Culton 2 Bacteria identified Cx Nom (U) ORGANISM ID: 1 50,000-<100,000 CFU/ml Escherichia coli ORGANISM ID: 1 (ESCHERICHIA COLI) ANTIBIOTIC INTERPRETATION ARCHANA STATUS REFERENCE RANGE Ampicillin S 8 F Susceptible <=8 , Intermediate >8 , Resistant >16 Ampicillin/Sulbact S <=2 F Susceptible <=8 , Intermediate >8 , Resistant >16 Cefazolin S <=4 F Susceptible 0-16 , Intermediate <0 or >16 , Resistant >16 Cefepime S <=1 F Susceptible <=2 , Intermediate >2 , Resistant >=16 Ceftriaxone S <=1 F Susceptible <=1 , Intermediate >1 , Resistant >=4 Ciprofloxacin S <=0.25 F Susceptible <0.5 , Intermediate >=.5 , Resistant >=1 Ertapenem S <=0.5 F Susceptible <=0.5 , Intermediate >.5 , Resistant >1 Gentamicin S <=1 F Susceptible <=4 , Intermediate >4 , Resistant >8 Meropenem S <=0.25 F Susceptible <=1 , Intermediate >1 , Resistant >2 Nitrofurantoin S <=16 F Susceptible <=32 , Intermediate >32 , Resistant >64 Piperacillin/Tazobac S <=4 F Susceptible <=16 , Intermediate >16 , Resistant >64 Tobramycin S <=1 F Susceptible <=4 , Intermediate >4 , Resistant >8 Trimeth sulfameth S <=20 F Susceptible <=40 , Resistant >40 Abnormal [facility] Comment on above: Performed By: #### 6 30-4 #### [facility] CLIA [id number] [address] [place] [address] [place] Basic metabolic 2000 panelon 06-28-2022 Anion gap [Moles/Vol] 10 mmol/L Normal 9-18 [facility] Comment on above: Order Comment: Speci men Type: BLOOD SPECIMEN Ordering Facility: [facility] Address: [address] [place] [address] Performed By: #### 2 4321-2 #### [facility] CLIA [id number] [address] [place] [address] [place] Calcium [Mass/Vol] 9.4 mg/dL Normal 8.5-10.2 [facility] Comment on above: Order Comment: Speci men Type: BLOOD SPECIMEN Ordering Facility: [facility] Address: [address] [place] [address] Performed By: #### 2 4321-2 #### [facility] CLIA [id number] [address] OF [facility] Chloride [Moles/Vol] 110 mmol/L High 97-105 [facility] Comment on above: Order Comment: Speci men Type: BLOOD SPECIMEN Ordering Facility: [facility] Address: [address] [place] [address] Performed By: #### 2 4321-2 #### [facility] CLIA [id number] [address] STATES OF [facility] CO2 [Moles/Vol] 24 mmol/L Normal 22-30 [facility] Comment on above: Order Comment: Speci men Type: BLOOD SPECIMEN Ordering Facility: [facility] Address: [facility] [place] [address] Performed By: #### 2 4321-2 #### [facility] CLIA [id number] [address] [place] [address] [place] Creatinine [Mass/Vol] 0.43 mg/dL Low 0.58-0.96 [facility] Comment on above: Order Comment: Speci men Type: BLOOD SPECIMEN Ordering Facility: [facility] Address: [address] [place] [address] Performed By: #### 2 4321-2 #### [facility] CLIA [id number] [address] STATES OF [facility] ESTIMATED GLOMERULAR FILTRATION RATE 114 mL/min/1.73m??? Normal >=60 [facility] Comment on above: Order Comment: Jessica mack Type: BLOOD SPECIMEN Ordering Facility: [facility] Address: [address] [place], [place] [address] Result Comment: Lina mated Glomerular Filtration Rate (eGFR) is calculated using the 2020 CKD-EPI creatinine equation. This equation utilizes serum creatinine, sex, and age as parameters. The creatinine assay has traceable calibration to isotope dilution-mass spectrometry. Refer to KDIGO guidelines for clinical interpretation. In patients with unstable renal function, e.g. those with acute kidney injury, the eGFR may not accurately reflect actual GFR. Performed By: #### 2 4321-2 #### [facility] CLIA [id number] [address] [place] [address] [place] Glucose [Mass/Vol] 91 mg/dL Normal 74-99 [facility] Comment on above: Order Comment: Jessica mack Type: BLOOD SPECIMEN Ordering Facility: [facility] Address: [address] [place], [place] [address] Result Comment: The [place] [employer] (ADA) provides guidance for cutoff values for fasting glucose and random glucose. The ADA defines fasting as no caloric intake for at least 8 hours. Fasting plasma glucose results between 100 to 125 mg/dL indicate increased risk for diabetes (prediabetes). Fasting plasma glucose results greater than or equal to 126 mg/dL meet the criteria for diagnosis of diabetes. In the absence of unequivocal hyperglycemia, results should be confirmed by repeat testing. In a patient with classic symptoms of hyperglycemia or hyperglycemic crisis, random plasma glucose results greater than or equal to 200 mg/dL meet the criteria for diagnosis of diabetes. Reference: Standards of Medical Care in Diabetes 2016, [place] [employer]. Diabetes Care. 2016.39(Suppl 1). Performed By: #### 2 4321-2 #### [facility] CLIA [id number] [address] [place] [id number] [place] Potassium [Moles/Vol] 3.9 mmol/L Normal 3.7-5.1 [facility] Comment on above: Order Comment: Jessica mack Type: BLOOD SPECIMEN Ordering Facility: [facility] Address: [address] [place] [address] Performed By: #### 2 4321-2 #### [facility] CLIA [id number] [address] STATES [facility] Sodium [Moles/Vol] 144 mmol/L Normal 136-144 [facility] Comment on above: Order Comment: Speci men Type: BLOOD SPECIMEN Ordering Facility: [facility] Address: [address] [place] [address] Performed By: #### 2 4321-2 #### [facility] CLIA [id number] [address] [place] [address] [place] Urea nitrogen [Mass/Vol] 16 mg/dL Normal 7-21 [facility] Comment on above: Order Comment: Speci men Type: BLOOD SPECIMEN Ordering Facility: [facility] Address: [address] [place] [address] Performed By: #### 2 4321-2 #### [facility] CLIA [id number] [address] [place] CBC panel Auto (Bld)on 08-27 Erythrocyte distribution width (RBC) [Ratio] 12.2 % Normal 11.5-15.0 [facility] Comment on above: Order Comment: Speci men Type: BLOOD SPECIMEN Ordering Facility: [facility] Address: [address] [place] [address] Performed By: #### 5 8410-2 #### [facility] CLIA [id number] [address] [place] Hematocrit (Bld) [Volume fraction] 39.9 % Normal 36.0-46.0 [facility] Comment on above: Order Comment: Speci men Type: BLOOD SPECIMEN Ordering Facility: [facility] Address: [address] [place] [address] Performed By: #### 5 8410-2 #### [facility] CLIA [id number] [address] [place] Hemoglobin (Bld) [Mass/Vol] 13.5 g/dL Normal 11.5-15.5 [facility] Comment on above: Order Comment: Speci men Type: BLOOD SPECIMEN Ordering Facility: [facility] Address: [address] [place] [address] Performed By: #### 5 8410-2 #### [facility] CLIA [id number] [address] MCH (RBC) [Entitic mass] 30.2 pg Normal 26.0-34.0 [facility] Comment on above: Order Comment: Speci men Type: BLOOD SPECIMEN Ordering Facility: [facility] Address: [address] [place] [address] Performed By: #### 5 8410-2 #### [facility] CLIA [id number] [address] MCHC (RBC) [Mass/Vol] 33.8 g/dL Normal 30.5-36.0 [facility] Comment on above: Order Comment: Speci men Type: BLOOD SPECIMEN Ordering Facility: [facility] Address: [address] [place] [address] Performed By: #### 5 8410-2 #### [facility] CLIA [id number] [address] MCV (RBC) [Entitic vol] 89.3 fL Normal 80.0-100.0 M [facility] Comment on above: Order Comment: Speci men Type: BLOOD SPECIMEN Ordering Facility: [facility] Address: [address] [place] [address] Performed By: #### 5 8410-2 #### [facility] CLIA [id number] [address] Nucleated RBC (Bld) [#/Vol] 10*3/uL Normal <0.01 [facility] Comment on above: Order Comment: Speci men Type: BLOOD SPECIMEN Ordering Facility: [facility] Address: [address] [place] [address] Performed By: #### 5 8410-2 #### [facility] CLIA [id number] [address] Platelet mean volume (Bld) [Entitic vol] 10.5 fL Normal 9.0-12.7 [facility] Comment on above: Order Comment: Speci men Type: BLOOD SPECIMEN Ordering Facility: [facility] Address: [address] [place] [address] Performed By: #### 5 8410-2 #### [facility] CLIA [id number] [address] [place] Platelets (Bld) [#/Vol] 307 10*3/uL Normal 150-400 [facility] Comment on above: Order Comment: Speci men Type: BLOOD SPECIMEN Ordering Facility: [facility] Address: [address] [place] [address] Performed By: #### 5 8410-2 #### [facility] CLIA [id number] [address] [place] RBC (Bld) [#/Vol] 4.47 10*6/uL Normal 3.90-5.20 [facility] Comment on above: Order Comment: Speci men Type: BLOOD SPECIMEN Ordering Facility: [facility] Address: [address] [place] [address] Performed By: #### 5 8410-2 #### [facility] CLIA [id number] [address] [place] WBC (Bld) [#/Vol] 10.24 10*3/uL Normal 3.70-11.00 [facility] Comment on above: Order Comment: Speci men Type: BLOOD SPECIMEN Ordering Facility: [facility] Address: [address] [place] [address] Performed By: #### 5 8410-2 #### [facility] CLIA [id number] [address] [place] [address] ABD/PEL WO IVCONon 2021 CT ABD/PEL WO IVCON * * *Final Report* * * DATE OF EXAM: Aug 27 2021 9:32PM [facility] 0531 - CT ABD/PEL WO IVCON / PROCEDURE REASON: Flank pain, kidney stone suspected * * * * Physician Interpretation * * * * EXAMINATION: CT ABDOMEN AND PELVIS WITHOUT IV CONTRAST CLINICAL HISTORY: Flank pain, kidney stone suspected TECHNIQUE: Non-IV contrast imaging of the abdomen and pelvis was performed using standard technique, scanning from just above the dome of the diaphragm to the symphysis pubis. Unenhanced imaging is limited for the evaluation of some intra-abdominal and pelvic pathology. MQ: CTAPWO_3 Contrast: IV: None : ml of CT Radiation dose: Integrated Dose-length product (DLP) for this visit = 585 mGy*cm. CT Dose Reduction Employed: mAs-kVp adjusted based on patient size-age COMPARISON: None. RESULT: Gastric bypass. Aortoiliac calcifications. Cholecystectomy. Normal appendix. Moderate ascending colonic stool burden measures 5 cm diameter. Left renal parapelvic cysts. Nonobstructive left 5 mm stone or calcification. No hydronephrosis. L4-5 laminectomy, L5-S1 spondylosis. Lower thorax: Coronary artery calcification. IMPRESSION: 1. Nonobstructive left nephrolithiasis 2. 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 ED NOTEon 08-27-2021 ED NOTE HNO ID: [id number] Author: Shonna Staples RN Service: ? Author Type: Registered Nurse Type: ED Notes Filed: 08/27/2021 7:59 PM Note Text: Pt presents to the ED with CC of urinary symptoms starting today this afternoon with some burning with urination, then became painful urination with bladder spasms, now noticing some blood in urine [facility] ED PROV NOTEon 08-27-2021 ED PROV NOTE HNO ID: [id number] Author: Brett [facility] MD Service: ? Author Type: Physician Type: ED Provider Notes Filed: 08/27/2021 10:37 PM Note Text: ED Provider Note Patient Name: Ayala Aranda : 1965 SERVICE DATE: 08/27/21 History Patient presents with: Urinary Problem: burning with urination, painful urination, bladder spasms, some blood in urine Ayala Aranda presents with urinary frequency, and gross hematuria that began today. She saw her physician this morning for chronic shoulder pain for which she is post to have surgery on September 13. She was at the movies today, and began having urinary frequency. She states she must of urinated at least 16 times. She then noticed khushbu blood/dark red blood with her urination. She denies any fevers but states she was chilled. She has mild suprapubic discomfort but no CVA pain or tenderness. Her symptoms may have began this morning with mild dysuria and pain with urination. She denies any exacerbating or alleviating factors. She does not get frequent urinary tract infections and states she has not had one in a few years. History provided by: Patient foster parent used: No PAST MEDICAL HISTORY Diagnosis Date - Benign essential HTN - Chronic back pain - GERD (gastroesophageal reflux disease) - Headache - Hyperlipidemia - Hypothyroidism - Morbid obesity with BMI of 40.0-44.9, adult (HCC) - Type 2 diabetes mellitus (HCC) PAST SURGICAL HISTORY Procedure Laterality Date - BACK SURGERY HX 2002 - HERNIA REPAIR W/MESH 01/2019 Retrorectus - HYSTERECTOMY HX 2007 - INCISION AND DRAINAGE/FURUNCLE 03/05/2012 of abominal wall seroma - LAP GASTRIC BYPASS/THAO-EN-Y 2018 - LAPAROSCOPY SURG CHOLECYSTECTOMY 2012 - LX REDUCTION OF BOWEL OBSTRUCTION 2013 - NECK SURGERY HX 2014 C4 - PANNICULECTOMY 2019 - PAST SURGICAL HISTORY OF 11/18/2012 excision of nonhealing abdominal wound 2.6 then immediaete closure - REPAIR FIRST ABDOMINAL WALL HERNIA 01/2012 Hernia repair, incisional,recurrent FAMILY HISTORY Problem Relation Age of Onset - Diabetes Mother - Heart Mother - Hypertension Mother - Stroke Father Social History Tobacco Use - Smoking status: Never Smoker - Smokeless tobacco: Never Used Substance and Sexual Activity - Alcohol use: No - Drug use: No - Sexual activity: Not on file ALLERGIES Allergen Reactions - Benadryl [Diphenhyd* Other: See Comments Throat closed up - Morphine Other: See Comments Throat closed up - Vancomycin Other: See Comments Throat closed up Review of Systems Constitutional: Positive for chills. Negative for fever. HENT: Negative. Eyes: Negative. Respiratory: Negative. Cardiovascular: Negative. Gastrointestinal: Negative for nausea and vomiting. Genitourinary: Positive for dysuria, frequency and hematuria. Musculoskeletal: Negative. Skin: Negative. Neurological: Negative. Negative for headaches. Physical Exam Vitals [08/27/211956] BP Pulse Temp Temp src Resp SpO2 Weight Height 152/92 59 36.7 ?C (98 ?F) Oral 16 97 % 72.1 kg (159 lb) -- Physical Exam Vitals and nursing note reviewed. Constitutional: Appearance: She is well-developed. HENT: Head: Normocephalic and atraumatic. Eyes: Pupils: Pupils are equal, round, and reactive to light. Cardiovascular: Rate and Rhythm: Normal rate and regular rhythm. Heart sounds: Normal heart sounds. Pulmonary: Effort: Pulmonary effort is normal. No respiratory distress. Breath sounds: Normal breath sounds. Abdominal: General: Bowel sounds are normal. Palpations: Abdomen is soft. Tenderness: There is no abdominal tenderness. There is no rebound. Musculoskeletal: General: Normal range of motion. Cervical back: Normal range of motion and neck supple. Comments: No CVA tenderness to percussion bilaterally Skin: General: Skin is warm and dry. Neurological: Mental Status: She is alert and oriented to person, place, and time. Cranial Nerves: No cranial nerve deficit. Deep Tendon Reflexes: Reflexes are normal and symmetric. Diagnostic Testing ED Labs Ordered and Reviewed - No data to display Procedures ED Course / Clinical Impression Clinical Impressions as of 08/27/212234 Acute cystitis with hematuria Hemorrhagic cystitis Right flank pain MDM / Disposition / Plan Urinalysis and urine culture was sent. Her urinalysis shows 11-25 WBCs with greater than 25 RBCs. She is given her first dose of Bactrim here in the emergency department along with Pyridium. Prescriptions were written for 3 days of Pyridium and for a week of Bactrim for what I believe is hemorrhagic cystitis. However, before discharge, she states that she has now been having right-sided flank pain. In order to rule out ureterolithiasis, CT will be obtained along with basic lab work including CBC and BMP. BMP shows chloride elevated at 110, normal anion gap of 10. BUN of 16 with creatinine (more content not included)... Normal [facility] URINALYSIS, REFLEX MICROSCOP ICon 08-27-2021 Bacteria LM.HPF (Urine sed) [#/Area] Many Abnormal None Seen [facility] Comment on above: Order Comment: Speci men Type: URINE SPECIMEN Ordering Facility: [facility] Address: [address] [place] [address] Performed By: #### L [id number] #### [facility] CLIA [id number] [address] Bilirubin Ql (U) Normal [facility] Comment on above: Order Comment: Speci men Type: URINE SPECIMEN Ordering Facility: [facility] Address: [address] [place] [address] Result Comment: Brawley r interference, unable to perform assay. Performed By: #### L [id number] #### [facility] CLIA [id number] [address] Clarity (Unsp spec) Turbid Abnormal Clear [facility] Comment on above: Order Comment: Speci men Type: URINE SPECIMEN Ordering Facility: [facility] Address: [address] [place] [address] Performed By: #### L [id number] #### [facility] CLIA [id number] [address] Color (U) Red Abnormal Yellow [facility] Comment on above: Order Comment: Speci men Type: URINE SPECIMEN Ordering Facility: [facility] Address: [address] [place] [address] Performed By: #### L [id number] #### [facility] CLIA [id number] [address] Epithelial cells LM.HPF (Urine sed) [#/Area] Few [facility] Comment on above: Order Comment: Speci men Type: URINE SPECIMEN Ordering Facility: [facility] Address: [address] [place] [address] Performed By: #### L [id number] #### [facility] CLIA [id number] [address] Glucose Test strip (U) [Mass/Vol] Normal [facility] Comment on above: Order Comment: Speci men Type: URINE SPECIMEN Ordering Facility: [facility] Address: [address] [place] [address] Result Comment: Brawley r interference, unable to perform assay. Performed By: #### L [id number] #### [facility] CLIA [id number] [address] Hemoglobin Ql (U) [facility] Comment on above: Order Comment: Speci men Type: URINE SPECIMEN Ordering Facility: [facility] Address: [address] [place] [address] Result Comment: Brawley r interference, unable to perform assay. Performed By: #### L [id number] #### [facility] CLIA [id number] [address] Ketones Ql (U) [facility] Comment on above: Order Comment: Speci men Type: URINE SPECIMEN Ordering Facility: [facility] Address: [address] [place] [address] Result Comment: Brawley r interference, unable to perform assay. Performed By: #### L [id number] #### [facility] CLIA [id number] [address] Leukocyte esterase Test strip Ql (U) [facility] Comment on above: Order Comment: Speci men Type: URINE SPECIMEN Ordering Facility: [facility] Address: [address] [place] [address] Result Comment: Brawley r interference, unable to perform assay. Performed By: #### L [id number] #### [facility] CLIA [id number] [address] Nitrite Ql (U) [facility] Comment on above: Order Comment: Speci men Type: URINE SPECIMEN Ordering Facility: [facility] Address: [address] [place] [address] Result Comment: Brawley r interference, unable to perform assay. Performed By: #### L [id number] #### [facility] CLIA [id number] [address] pH (U) [facility] Comment on above: Order Comment: Speci men Type: URINE SPECIMEN Ordering Facility: [facility] Address: [address] [place] [address] Result Comment: Brawley r interference, unable to perform assay. Performed By: #### L [id number] #### [facility] CLIA [id number] [address] Protein (U) [Mass/Vol] Normal [facility] Comment on above: Order Comment: Speci men Type: URINE SPECIMEN Ordering Facility: [facility] Address: [address] [place] [address] Result Comment: Brawley r interference, unable to perform assay. Performed By: #### L [id number] #### [facility] CLIA [id number] [address] [place] RBC LM.HPF (Urine sed) [#/Area] /[HPF] Abnormal 0-3 /HPF [facility] Comment on above: Order Comment: Speci men Type: URINE SPECIMEN Ordering Facility: [facility] Address: [address] [place] [address] Performed By: #### L [id number] #### [facility] CLIA [id number] [address] Specific gravity (U) [Rel density] Normal [facility] Comment on above: Order Comment: Speci men Type: URINE SPECIMEN Ordering Facility: [facility] Address: [address] [place] [address] Result Comment: Brawley r interference, unable to perform assay. Performed By: #### L [id number] #### [facility] CLIA [id number] [address] Urobilinogen Ql (U) Normal [facility] Comment on above: Order Comment: Speci men Type: URINE SPECIMEN Ordering Facility: [facility] Address: [address] [place] [address] Result Comment: Brawley r interference, unable to perform assay. Performed By: #### L [id number] #### [facility] CLIA [id number] [address] WBC LM.HPF (Urine sed) [#/Area] 11-25 /HPF Abnormal 0-5 /HPF [facility] Comment on above: Order Comment: Speci men Type: URINE SPECIMEN Ordering Facility: [facility] Address: [facility] [place] [address] Performed By: #### L [id number] #### [facility] CLIA [id number] [address] [place] [id number] [facility]ORYOrdered By: Kat Tucker on 03-08-2021 ADMITTED TO INTENSIVE CARE UNIT FOR CONDITION OF INTEREST:FIND:PT:^PATIE NT:ORD: No (03/08/21 12:30 PM) Invalid Interpretation Code AO Auto Urine SS EMPLOYED IN A HEALTHCARE SETTING:FIND:PT:^PATIEN T:ORD: No (03/08/21 12:30 PM) Invalid Interpretation Code AO Auto Urine SS FIRST TEST FOR CONDITION OF INTEREST:FIND:PT:^PATIE NT:ORD: Unknown (03/08/21 12:30 PM) Invalid Interpretation Code AO Auto Urine SS HAS SYMPTOMS RELATED TO CONDITION OF INTEREST:FIND:PT:^PATIE NT:ORD: Yes (03/08/21 12:30 PM) Invalid Interpretation Code AO Auto Urine SS Illness or injury onset date and time 20210305 Invalid Interpretation Code AO Auto Urine SS Patient was hospitalized because of this condition No (03/08/21 12:30 PM) Invalid Interpretation Code AO Auto Urine SS status Not (03/08/21 12:30 PM) Invalid Interpretation Code AO Auto Urine SS RESIDES IN A CONGREGATE CARE SETTING:FIND:PT:^PATIEN T:ORD: No (03/08/21 12:30 PM) Invalid Interpretation Code AO Auto Urine SS SARS-CoV-2 (COVID-19) RNA ANGELA+probe Ql (Resp) Positive *ABN* (03/08/21 12:30 PM) Invalid Interpretation Code Negative AO Auto Urine SS SARS-CoV-2 (COVID-19) RNA ANGELA+probe Ql (Unsp spec) Positive results are indicative of the presence of SARS-CoV-2 RNA; clinical correlation with patient history and other diagnostic information is necessary to determine patient infection status. Positive results do not rule out bacterial infection or co-infection with other viruses. The agent detected may not be the definite cause of disease. Laboratories within the [place] and its territories are required to report all positive results to the appropriate public health authorities.Detection of analyte target(s) does not imply that the corresponding virus(es) are infectious or are the causative agents for clinical symptoms.There is a risk of false positive values resulting from cross-contamination by target organisms, their nucleic acids or amplified product, or from non-specific signals in the assay.ABDELRAHMAN SARS-CoV-2 Assay is a Real-Time reverse-transcriptase polymerase chain reaction (RT-PCR) based qualitative in vitro diagnostic test intended for the qualitative detection of nucleic acid from the SARS-CoV-2 in nasopharyngeal swab specimens collected from individuals suspected of COVID-19 by their healthcare provider. Testing is limited to laboratories certified under the Clinical Laboratory Improvement Amendments of 1988 (CLIA), 42 U.S.C. 263a, to perform moderate and high complexity tests. Invalid Interpretation Code AO Auto Urine SS LABORATORYOrdered By: April Boyer on 02-12-2021 ADMITTED TO INTENSIVE CARE UNIT FOR CONDITION OF INTEREST:FIND:PT:^PATIE NT:ORD: No (02/12/21 12:20 PM) Invalid Interpretation Code AO Auto Urine SS EMPLOYED IN A HEALTHCARE SETTING:FIND:PT:^PATIEN T:ORD: No (02/12/21 12:20 PM) Invalid Interpretation Code AO Auto Urine SS FIRST TEST FOR CONDITION OF INTEREST:FIND:PT:^PATIE NT:ORD: No (02/12/21 12:20 PM) Invalid Interpretation Code AO Auto Urine SS FLUAV RNA ANGELA+probe Ql (Upper resp) Negative (02/12/21 12:20 PM) Invalid Interpretation Code Negative AO Auto Urine SS FLUBV RNA ANGELA+probe Ql (Upper resp) Negative (02/12/21 12:20 PM) Invalid Interpretation Code Negative AO Auto Urine SS HAS SYMPTOMS RELATED TO CONDITION OF INTEREST:FIND:PT:^PATIE NT:ORD: Yes (02/12/21 12:20 PM) Invalid Interpretation Code AO Auto Urine SS Illness or injury onset date and time 20210211 Invalid Interpretation Code AO Auto Urine SS Patient was hospitalized because of this condition No (02/12/21 12:20 PM) Invalid Interpretation Code AO Auto Urine SS status Not (02/12/21 12:20 PM) Invalid Interpretation Code AO Auto Urine SS RESIDES IN A CONGREGATE CARE SETTING:FIND:PT:^PATIEN T:ORD: No (02/12/21 12:20 PM) Invalid Interpretation Code AO Auto Urine SS RSV RNA ANGELA+probe Ql (Upper resp) Negative (02/12/21 12:20 PM) Invalid Interpretation Code Negative AO Auto Urine SS SARS-CoV-2 (COVID-19) RNA ANGELA+probe Ql (Resp) Negative (02/12/21 12:20 PM) Invalid Interpretation Code Negative AO Auto Urine SS SARS-CoV-2 (COVID-19) RNA ANGELA+probe Ql (Unsp spec) Negative results do not preclude SARS-CoV-2 infection and should not be used as the sole basis for patient management decisions. Negative results must be combined with clinical observations, patient history, and epidemiological information.There is a risk of false negative values resulting from improperly collected, transported, or handled specimens.There is a risk of false negative values due to the presence of sequence variants in the pathogen targets of the assay, procedural errors, amplification inhibitors in specimens, or inadequate numbers of organisms for amplification.ABDELRAHMAN SARS-CoV-2 Assay is a Real-Time reverse-transcriptase polymerase chain reaction (RT-PCR) based qualitative in vitro diagnostic test intended for the qualitative detection of nucleic acid from the SARS-CoV-2 in nasopharyngeal swab specimens collected from individuals suspected of COVID-19 by their healthcare provider. Testing is limited to laboratories certified under the Clinical Laboratory Improvement Amendments of 1988 (CLIA), 42 U.S.C. 263a, to perform moderate and high complexity tests. Invalid Interpretation Code AO Auto Urine SS LABORATORYOrdered By: Kat Tucker on 01-08-2021 ADMITTED TO INTENSIVE CARE UNIT FOR CONDITION OF INTEREST:FIND:PT:^PATIE NT:ORD: No (01/08/21 11:59 AM) Invalid Interpretation Code AO Auto Urine SS EMPLOYED IN A HEALTHCARE SETTING:FIND:PT:^PATIEN T:ORD: No (01/08/21 11:59 AM) Invalid Interpretation Code AO Auto Urine SS FIRST TEST FOR CONDITION OF INTEREST:FIND:PT:^PATIE NT:ORD: No (01/08/21 11:59 AM) Invalid Interpretation Code AO Auto Urine SS HAS SYMPTOMS RELATED TO CONDITION OF INTEREST:FIND:PT:^PATIE NT:ORD: Yes (01/08/21 11:59 AM) Invalid Interpretation Code AO Auto Urine SS Illness or injury onset date and time 20210103 Invalid Interpretation Code AO Auto Urine SS Patient was hospitalized because of this condition No (01/08/21 11:59 AM) Invalid Interpretation Code AO Auto Urine SS status Not (01/08/21 11:59 AM) Invalid Interpretation Code AO Auto Urine SS RESIDES IN A CONGREGATE CARE SETTING:FIND:PT:^EMILY T:ORD: No (01/08/21 11:59 AM) Invalid Interpretation Code AO Auto Urine SS SARS-CoV-2 (COVID-19) RNA ANGELA+probe Ql (Resp) Negative (01/08/21 11:59 AM) Invalid Interpretation Code Negative AO Auto Urine SS SARS-CoV-2 (COVID-19) RNA ANGELA+probe Ql (Unsp spec) Negative results do not preclude SARS-CoV-2 infection and should not be used as the sole basis for patient management decisions. Negative results must be combined with clinical observations, patient history, and epidemiological information.There is a risk of false negative values resulting from improperly collected, transported, or handled specimens.There is a risk of false negative values due to the presence of sequence variants in the pathogen targets of the assay, procedural errors, amplification inhibitors in specimens, or inadequate numbers of organisms for amplification.ABDELRAHMAN SARS-CoV-2 Assay is a Real-Time reverse-transcriptase polymerase chain reaction (RT-PCR) based qualitative in vitro diagnostic test intended for the qualitative detection of nucleic acid from the SARS-CoV-2 in nasopharyngeal swab specimens collected from individuals suspected of COVID-19 by their healthcare provider. Testing is limited to laboratories certified under the Clinical Laboratory Improvement Amendments of 1988 (CLIA), 42 U.S.C. 263a, to perform moderate and high complexity tests. Invalid Interpretation Code AO Auto Urine SS LABORATORYOrdered By: Ricardo Chavez on 12-12-2020 Albumin BCP dye [Mass/Vol] 3.8 G/dL Invalid Interpretation Code 3.5 - 5.0 G/dL AO ADM SS Albumin/Globulin [Mass ratio] 1.2 {ratio} Invalid Interpretation Code 1.1 - 2.5 ratio AO ADM SS ALP [Catalytic activity/Vol] 121 U/L Invalid Interpretation Code 40 - 135 U/L AO ADM SS ALT With P-5'-P [Catalytic activity/Vol] 34 U/L Invalid Interpretation Code 14 - 59 U/L AO ADM SS AST With P-5'-P [Catalytic activity/Vol] 24 U/L Invalid Interpretation Code 10 - 40 U/L AO ADM SS Basophil, Absolute 0.00 103/mcL Invalid Interpretation Code 0.00 - 0.19 10^3/mcL AO Auto Heme SS Basophils/100 WBC (Bld) 0.6 % Invalid Interpretation Code 0.0 - 2.5 % AO Auto Heme SS Bilirubin [Mass/Vol] 0.7 mg/dL Invalid Interpretation Code 0.2 - 1.0 mg/dL AO ADM SS Calcium [Mass/Vol] 8.9 mg/dL Invalid Interpretation Code 8.4 - 10.2 mg/dL AO ADM SS Chloride [Moles/Vol] 105 mmol/L Invalid Interpretation Code 98 - 107 mmol/L AO ADM SS Cholesterol [Mass/Vol] 181 mg/dL Invalid Interpretation Code 0 - 200 mg/dL AO ADM SS Cholesterol in HDL [Mass/Vol] 66 mg/dL Invalid Interpretation Code 40 - 60 mg/dL AO ADM SS Cholesterol in LDL [Mass/Vol] 92 mg/dL Invalid Interpretation Code 0 - 130 mg/dL AO ADM SS CO2 [Moles/Vol] 28 mmol/L Invalid Interpretation Code 22 - 29 mmol/L AO ADM SS Creatinine [Mass/Vol] 0.47 mg/dL Invalid Interpretation Code 0.55 - 1.02 mg/dL AO ADM SS Electrolyte Balance 9.0 mEq/L Invalid Interpretation Code AO ADM SS Eosinophil, Absolute 0.10 103/mcL Invalid Interpretation Code 0.00 - 0.40 10^3/mcL AO Auto Heme SS Eosinophils/100 WBC (Bld) 1.6 % Invalid Interpretation Code 0.0 - 7.0 % AO Auto Heme SS Erythrocyte distribution width (RBC) [Ratio] 12.5 % Invalid Interpretation Code 11.5 - 14.5 % AO Auto Heme SS Globulin 3.1 G/dL Invalid Interpretation Code AO ADM SS Glucose [Mass/Vol] 84 mg/dL Invalid Interpretation Code 70 - 105 mg/dL AO ADM SS HbA1c (Bld) [Mass fraction] 5.3 % Invalid Interpretation Code 4.3 - 6.4 % AO ADM SS Hematocrit (Bld) [Volume fraction] 37.2 % Invalid Interpretation Code 37.0 - 47.0 % AO Auto Heme SS Hemoglobin (Bld) [Mass/Vol] 12.9 G/dL Invalid Interpretation Code 12.0 - 16.0 G/dL AO Auto Heme SS Lymphocyte, Absolute 2.50 103/mcL Invalid Interpretation Code 0.77 - 3.85 10^3/mcL AO Auto Heme SS Lymphocytes/100 WBC (Bld) 39.1 % Invalid Interpretation Code 10.0 - 50.0 % AO Auto Heme SS MCH (RBC) [Entitic mass] 31.7 pg Invalid Interpretation Code 27.0 - 31.2 pg AO Auto Heme SS MCHC (RBC) [Mass/Vol] 34.8 G/dL Invalid Interpretation Code 33.0 - 37.0 G/dL AO Auto Heme SS MCV (RBC) [Entitic vol] 91.2 fL Invalid Interpretation Code 80.0 - 94.0 fL AO Auto Heme SS Monocyte, Absolute 0.40 103/mcL Invalid Interpretation Code 0.15 - 1.00 10^3/mcL AO Auto Heme SS Monocytes/100 WBC (Bld) 6.2 % Invalid Interpretation Code 1.7 - 13.0 % AO Auto Heme SS Neutrophil, Absolute 3.30 103/mcL Invalid Interpretation Code 2.85 - 6.16 10^3/mcL AO Auto Heme SS Neutrophils/100 WBC (Bld) 52.5 % Invalid Interpretation Code 37.0 - 80.0 % AO Auto Heme SS Platelet mean volume (Bld) [Entitic vol] 9.0 fL Invalid Interpretation Code 7.4 - 10.4 fL AO Auto Heme SS Platelets (Bld) [#/Vol] 304 103/mcL Invalid Interpretation Code 130 - 400 10^3/mcL AO Auto Heme SS Potassium [Moles/Vol] 4.4 mmol/L Invalid Interpretation Code 3.5 - 5.1 mmol/L AO ADM SS Protein [Mass/Vol] 6.9 G/dL Invalid Interpretation Code 6.4 - 8.2 G/dL AO ADM SS RBC (Bld) [#/Vol] 4.08 106/mcL Invalid Interpretation Code 4.20 - 5.40 10^6/mcL AO Auto Heme SS Sodium [Moles/Vol] 142 mmol/L Invalid Interpretation Code 136 - 145 mmol/L AO ADM SS Triglyceride [Mass/Vol] 117 mg/dL Invalid Interpretation Code 0 - 150 mg/dL AO ADM SS TSH Qn 5.44 m[IU]/L Invalid Interpretation Code 0.36 - 3.74 mcIU/mL AO ADM SS Urea nitrogen [Mass/Vol] 11 mg/dL Invalid Interpretation Code 7 - 18 mg/dL AO ADM SS Urea nitrogen/Creatinine [Mass ratio] 23 ratio Invalid Interpretation Code 7 - 27 ratio AO ADM SS Vit. D 25-Hydroxy 35.3 ng/mL Invalid Interpretation Code AO ADM SS WBC (Bld) [#/Vol] 6.30 103/mcL Invalid Interpretation Code 4.60 - 10.80 10^3/mcL AO Auto Heme SS LABORATORYOrdered By: SYSTEM SYSTEM on 12-12-2020 GFR 167 ml/min/1.73sqm Invalid Interpretation Code AO Chemistry S GFR Non- 138 ml/min/1.73sqm Invalid Interpretation Code AO Chemistry S Clinical Summary: HMSPatient IDon 11-09-2019 [facility] [place] [facility] Work Phone: Op Noteon 11-03-2019 Op Note PATIENT: GARETH ARANDA ADMISSION DATE: 11/03/2019 SURGERY DATE: 11/03/2019 DATE OF : 1965 AGE: 54 ADMITTING PHYSICIAN: Paul Mckeon III, MD ATTENDING PHYSICIAN: Paul Mckeon III, MD DICTATING PHYSICIAN: Paul Mckeon III, MD OPERATIVE RECORD Procedures: 1. PANNICULECTOMY WITH [id number]. 2. PLACEMENT OF A DISPOSABLE INCISIONAL WOUND VAC. Preoperative Diagnosis: Localized adiposity status post massive weight loss. Postoperative Diagnosis: Localized adiposity status post massive weight loss. Anesthesia: General. Assistants: 1. Padmini Rodriguez M.D. 2. Samantha Lewis. Complications: None. Estimated Blood Loss: Less than 50. Specimens: None. Findings: The patient's pannus weighed 5 pounds 10 ounces. Operative Indications: The patient is a 54-year-old female, status post massive weight loss surgery with a symptomatic abdominal pannus. Authorization was obtained for panniculectomy and this was planned. Secondary to the patient's midline scar, I felt that mjnvy-jz-vql extension of this panniculectomy was necessary to be able to advance the abdominal skin caudally for closure and this was planned. Description of Procedure: The patient was seen in the preoperative area. She was marked in the standing position for a panniculectomy with a ivzzb-vp-skb extension along the aspect of her midline scar. She was then brought to the operating room and she had PA stockings placed on bilateral calves. She received IV antibiotics. She also received her Lovenox. She was then prepped and draped in the normal sterile fashion after general endotracheal anesthesia was induced. Prior to this, she was also had a block placed by the anesthesia service. At this point, we first started by anesthetizing our pvcsx-ml-edg incision line with local anesthesia and our planned caudal incision line of the flap excision as well. We then made our skin incision along the xutzc-lo-slf and abdomen with a 10-blade scalpel and dissected through the dermis of all these with the Bovie cauterization. We then dissected through the subcutaneous tissues of the yrxcq-zu-scx portion with a Harmonic scalpel dissecting all the way down to the patient's scarred fascia. This tissue was then amputated. We then proceeded to the horizontal lower flap and again dissected through the subcutaneous tissue with Bovie cauterization until we reached the abdominal fascia. We then elevated the flap in a caudal to cranial fashion until we had reached our portion where we felt our upper flap amputation would be necessary. Happy with our elevation, we then copiously irrigated out the operative field with saline solution and ensured hemostasis. This was done with Bovie cauterization. Happy with hemostasis, we then elevated the mons pubis region grabbing Tatianna's fascia and secured to the abdominal fascia with a few interrupted 2-0 Vicryl sutures. We then placed the bed at a 30 degrees and began closing the baggq-ca-ktz portion. This was done by grabbing Tatianna's fascia of each flap and advancing it caudally with each bite until the upper 2 flaps met the lower flap. We then closed the horizontal incision in a similar fashion, closing Tatianna's fascia of the upper flap to the lower flap and advancing our upper flap medially with each bite. After Tatianna's fascia was closed, we then closed the rest of the cvdwn-ws-sbx and horizontal incision line with multiple interrupted 3-0 Monocryl deep dermal sutures followed by 3-0 Monocryl subcuticular stitch. We then cleansed all the abdominal skin, prepped the skin with a tincture of benzoin and planned our VAC placement. We then cut our customizable VAC for the xufhi-om-jem portion and placed the VAC over the incision line. We then secured the sponge portion with our clear sticky dressings and put the suction cup over the central portion and then got a good seal. The patient was then placed in abdominal binder, extubated, and taken to PACU in stable condition. [employer] Job ID: [id number] Paul Mckeon III, MD DOD:11/03/2019 12:48 P LAD/dsk DOT:11/03/2019 01:43 P Job Number: [id number] Document Number: [id number] cc: Paul Mckeon III, MD [address] [facility] [address] [facility] [address] Normal [facility] Zinc, Serumon 08-20-2019 Zinc, Serum 85.4 ug/dL Normal 60.0-120.0 [facility] Comment on above: Result Comment: INTE RPRETIVE INFORMATION: Zinc, Serum or Plasma Elevated results may be due to skin or collection-related contamination, including the use of a noncertified metal-free collection/transport tube. If contamination concerns exist due to elevated levels of serum/plasma zinc, confirmation with a second specimen collected in a certified metal-free tube is recommended. Circulating zinc concentrations are dependent on albumin status and are depressed with malnutrition. Zinc may also be lowered with infection, inflammation, stress, oral contraceptives, and . Zinc may be elevated with zinc supplementation or fasting. Elevated zinc concentrations may interfere with copper absorption. Test developed and characteristics determined by [facility]. See Compliance Statement B: [email or web address]CS Performed by [facility], [address] [place] [id number] [email or web address], Rich Marie MD, Lab. Director Performed By: #### H EMOG, IRON3, LIPD2, MG3, CMP3, FERR3, B12, FOLT3 #### [facility] [employer] [facility] [address] [place] [address] #### [id number] #### [facility] [employer] [facility] [address] [place] [address] #### ZINC2, WBB1O #### The performing lab is in the report. CBCon 08-16-2019 Erythrocyte distribution width (RBC) [Ratio] 12.5 % 11.5 - 14.5 % [facility], [place] Hematocrit (Bld) [Volume fraction] 40.3 % 35 - 47 % [place] Hemoglobin (Bld) [Mass/Vol] 13.6 g/dL 11.7 - 16 g/dL [place] MCH (RBC) [Entitic mass] 31.1 pg 26 - 34 pg [place] MCHC (RBC) [Mass/Vol] 33.8 % 32 - 36 % [place], [place] MCV (RBC) [Entitic vol] 92.1 fL 79 - 98 fL [place], [place] Platelet mean volume (Bld) [Entitic vol] 9.2 fL 7.4 - 10.4 fL [place] Platelets (Bld) [#/Vol] 295 10*3/uL 140 - 440 10*3/uL [place] RBC (Bld) [#/Vol] 4.38 10*6/uL 3.8 - 5.2 10*6/uL [place] WBC (Bld) [#/Vol] 5.9 10*3/uL 3.6 - 10.7 10*3/uL [place] Test Performed by [facility], [address] [place] [id number] [place] [address] Comp Metabolic Panelon 08-15 ALT [Catalytic activity/Vol] 31 U/L Normal 0-34 [facility] Comment on above: Result Comment: The ALT test is performed by an updated assay method. Please note that the reference intervals have been changed and are now sex specific. Performed By: #### H EMOG, IRON3, LIPD2, MG3, CMP3, FERR3, B12, FOLT3 #### [address] [address] #### VD25H #### [facility] [address] [place] [address] #### ZINC2, WBB1O #### The performing lab is in the report. Calcium [Mass/Vol] 9.5 mg/dL Normal 8.4-10.4 [facility] Comment on above: Performed By: #### H EMOG, IRON3, LIPD2, MG3, CMP3, FERR3, B12, FOLT3 #### [place] [address] [place], [place] #### VD25H #### [facility] [address] [place] [address] #### ZINC2, WBB1O #### The performing lab is in the report. Glucose [Mass/Vol] 75 mg/dL Normal 70-100 [facility] Comment on above: Performed By: #### H EMOG, IRON3, LIPD2, MG3, CMP3, FERR3, B12, FOLT3 #### [address] #### VD25H #### [facility] [address] [place] [address] #### ZINC2, WBB1O #### The performing lab is in the report. Anion gap [Moles/Vol] 10 Normal [facility] Comment on above: Performed By: #### H EMOG, IRON3, LIPD2, MG3, CMP3, FERR3, B12, FOLT3 #### [address] #### VD25H #### [facility] [address] [place] [address] #### ZINC2, WBB1O #### The performing lab is in the report. Bilirubin [Mass/Vol] 0.8 mg/dL Normal 0.2-1.3 [facility] Comment on above: Performed By: #### H EMOG, IRON3, LIPD2, MG3, CMP3, FERR3, B12, FOLT3 #### [address] #### VD25H #### [facility] [address] [place] [address] #### ZINC2, WBB1O #### The performing lab is in the report. GFR/1.73 sq M predicted among non-blacks MDRD (S/P/Bld) [Vol rate/Area] mL/min/{1.73_m2} Normal >60 [facility] Comment on above: Result Comment: KDIG O guidelines provide the following GFR categories: Stage GFR(ml/min/1.73 m2) Terms G1 >=90 Normal or high G2 60-89 Mildly decreased* G3a 45-59 Mildly to moderately decreased G3b 30-44 Moderately to severely decreased G4 15-29 Severely decreased G5 <15 Kidney failure *Relative to young adult level. In the absence of evidence of kidney damage, neither GFR category G1 nor G2 fulfill the criteria for CKD. The CKD-EPI equation is validated in individuals 18 years of age and older. Currently the best equation for estimating glomerular filtration rate (GFR) from serum creatinine in children is the Bedside Mascorro equation. It is less accurate in patients with extremes of muscle mass, restriction of dietary protein, ingestion of creatine, extra-renal metabolism of creatinine, or treatment with medications that affect renal tubular creatinine secretion. Performed By: #### H EMOG, IRON3, LIPD2, MG3, CMP3, FERR3, B12, FOLT3 #### [address] #### VD25H #### [address] [place], [place] #### ZINC2, WBB1O #### The performing lab is in the report. Potassium [Moles/Vol] 4.1 mmol/L Normal 3.5-5.1 [facility] Comment on above: Performed By: #### H EMOG, IRON3, LIPD2, MG3, CMP3, FERR3, B12, FOLT3 #### [address] #### VD25H #### [address] [place], [place] #### ZINC2, WBB1O #### The performing lab is in the report. Sodium [Moles/Vol] 137 mmol/L Normal 135-145 [facility] Comment on above: Performed By: #### H EMOG, IRON3, LIPD2, MG3, CMP3, FERR3, B12, FOLT3 #### [address] #### VD25H #### [address] [place] [address] #### ZINC2, WBB1O #### The performing lab is in the report. Albumin [Mass/Vol] 4.4 g/dL Normal 3.5-5.0 [facility] Comment on above: Performed By: #### H EMOG, IRON3, LIPD2, MG3, CMP3, FERR3, B12, FOLT3 #### [address] #### VD25H #### [facility] [address] [place], [place] #### ZINC2, WBB1O #### The performing lab is in the report. Chloride [Moles/Vol] 100 mmol/L Normal 98-107 [facility] Comment on above: Performed By: #### H EMOG, IRON3, LIPD2, MG3, CMP3, FERR3, B12, FOLT3 #### [address] #### VD25H #### [facility] [address] [place], [place] #### ZINC2, WBB1O #### The performing lab is in the report. ALP [Catalytic activity/Vol] 96 U/L Normal 38-126 [place] Comment on above: Performed By: #### H EMOG, IRON3, LIPD2, MG3, CMP3, FERR3, B12, FOLT3 #### [address] #### VD25H #### [facility] [address] [place], [place] #### ZINC2, WBB1O #### The performing lab is in the report. AST [Catalytic activity/Vol] 36 U/L Normal 15-46 [place] Comment on above: Performed By: #### H EMOG, IRON3, LIPD2, MG3, CMP3, FERR3, B12, FOLT3 #### [address] #### VD25H #### [facility] [address] [place], [place] #### ZINC2, WBB1O #### The performing lab is in the report. CO2 [Moles/Vol] 27 mmol/L Normal 22-30 [place] Comment on above: Performed By: #### H EMOG, IRON3, LIPD2, MG3, CMP3, FERR3, B12, FOLT3 #### [address] #### VD25H #### [facility] [address] [place] [address] #### ZINC2, WBB1O #### The performing lab is in the report. Creatinine [Mass/Vol] 0.36 mg/dL Low 0.52-1.25 [place], [place] Comment on above: Performed By: #### H EMOG, IRON3, LIPD2, MG3, CMP3, FERR3, B12, FOLT3 #### [address] #### VD25H #### [address] [place] [address] #### ZINC2, WBB1O #### The performing lab is in the report. GFR/1.73 sq M predicted among blacks MDRD (S/P/Bld) [Vol rate/Area] mL/min/{1.73_m2} Normal >60 [place] Comment on above: Performed By: #### H EMOG, IRON3, LIPD2, MG3, CMP3, FERR3, B12, FOLT3 #### [address] #### VD25H #### [address] [place] [place] [address] #### ZINC2, WBB1O #### The performing lab is in the report. Protein [Mass/Vol] 7.3 g/dL Normal 6.3-8.2 [place] Comment on above: Performed By: #### H EMOG, IRON3, LIPD2, MG3, CMP3, FERR3, B12, FOLT3 #### [facility] [address] [place] [address] #### VD25H #### [facility] [address] [place] [address] #### ZINC2, WBB1O #### The performing lab is in the report. Urea nitrogen [Mass/Vol] 13 mg/dL Normal 7-20 [place] Comment on above: Performed By: #### H EMOG, IRON3, LIPD2, MG3, CMP3, FERR3, B12, FOLT3 #### [facility] [address] [place] [address] #### VD25H #### [facility] [address] [place] [address] #### ZINC2, WBB1O #### The performing lab is in the report. Comprehensive Metabolic Pane juan 08-16-2019 Albumin [Mass/Vol] 4.4 g/dL 3.5 - 5 g/dL [place] ALT [Catalytic activity/Vol] 31 U/L 0 - 34 U/L [place] Comment on above: The ALT test is perf ormed by an updated assay method. Please note that the reference intervals have been changed and are now sex specific. Anion gap [Moles/Vol] 10 mmol/L [place], [place] Bilirubin Ql (U) 0.8 mg/dL 0.2 - 1.3 mg/dL [place] Calcium [Mass/Vol] 9.5 mg/dL 8.4 - 10. 4 mg/dL [place] Chloride [Moles/Vol] 100 mmol/L 98 - 10 7 mmol/L [place] EGFR IF NonAfrican Kosovan >90.0 >60 mL/min [place] Comment on above: KDIGO guidelines pro vide the following GFR categories: Stage GFR(ml/min/1.73 m2) Terms G1 >=90 Normal or high G2 60-89 Mildly decreased* G3a 45-59 Mildly to moderately decreased G3b 30-44 Moderately to severely decreased G4 15-29 Severely decreased G5 <15 Kidney failure *Relative to young adult level. In the absence of evidence of kidney damage, neither GFR category G1 nor G2 fulfill the criteria for CKD. The CKD-EPI equation is validated in individuals 18 years of age and older. Currently the best equation for estimating glomerular filtration rate (GFR) from serum creatinine in children is the Bedside Mascorro equation. It is less accurate in patients with extremes of muscle mass, restriction of dietary protein, ingestion of creatine, extra-renal metabolism of creatinine, or treatment with medications that affect renal tubular creatinine secretion. Glucose [Mass/Vol] 75 mg/dL 70 - 100 mg/dL [place] Potassium [Moles/Vol] 4.1 mmol/L 3.5 - 5.1 mmol/L [place] Sodium [Moles/Vol] 137 mmol/L 135 - 145 mmol/L [place] Ferritinon 08-16-2019 Ferritin [Mass/Vol] 93 ng/mL Normal 8-252 [facility] Comment on above: Performed By: #### H EMOG, IRON3, LIPD2, MG3, CMP3, FERR3, B12, FOLT3 #### [address] #### VD25H #### [facility] [address] [place] [address] #### ZINC2, WBB1O #### The performing lab is in the report. Ferritin [Mass/Vol] 93 ng/mL 8 - 252 ng/mL [place] Test Performed by [facility], [address] [place] [address] Folateon 08-16-2019 Folate > 20.0 Normal 2.8-20.0 [facility] Comment on above: Performed By: #### H EMOG, IRON3, LIPD2, MG3, CMP3, FERR3, B12, FOLT3 #### [address] #### VD25H #### [facility] [address] [place] [address] #### ZINC2, WBB1O #### The performing lab is in the report. Folate >20.0 2.8 - 20 ng/mL [place] Hemogramon 08-16-2019 Erythrocyte distribution width (RBC) [Ratio] 12.5 % Normal 11.5-14.5 [facility] Comment on above: Performed By: #### H EMOG, IRON3, LIPD2, MG3, CMP3, FERR3, B12, FOLT3 #### [address] #### VD25H #### [address] [place] [address] #### ZINC2, WBB1O #### The performing lab is in the report. Hematocrit (Bld) [Volume fraction] 40.3 % Normal 35.0-47.0 [facility] Comment on above: Performed By: #### H EMOG, IRON3, LIPD2, MG3, CMP3, FERR3, B12, FOLT3 #### [address] #### VD25H #### [address] [place] [address] #### ZINC2, WBB1O #### The performing lab is in the report. Hemoglobin (Bld) [Mass/Vol] 13.6 g/dL Normal 11.7-16.0 [facility] Comment on above: Performed By: #### H EMOG, IRON3, LIPD2, MG3, CMP3, FERR3, B12, FOLT3 #### [address] #### VD25H #### [address] [place] [address] #### ZINC2, WBB1O #### The performing lab is in the report. MCH (RBC) [Entitic mass] 31.1 pg Normal 26.0-34.0 [facility] Comment on above: Performed By: #### H EMOG, IRON3, LIPD2, MG3, CMP3, FERR3, B12, FOLT3 #### [address] #### VD25H #### [address] [place] [address] #### ZINC2, WBB1O #### The performing lab is in the report. MCHC (RBC) [Mass/Vol] 33.8 % Normal 32.0-36.0 [facility] Comment on above: Performed By: #### H EMOG, IRON3, LIPD2, MG3, CMP3, FERR3, B12, FOLT3 #### [address] #### VD25H #### [facility] [address] [place] [address] #### ZINC2, WBB1O #### The performing lab is in the report. MCV (RBC) [Entitic vol] 92.1 fL Normal 79.0-98.0 [facility] Comment on above: Performed By: #### H EMOG, IRON3, LIPD2, MG3, CMP3, FERR3, B12, FOLT3 #### [address] #### VD25H #### [facility] [address] [place] [address] #### ZINC2, WBB1O #### The performing lab is in the report. Platelet mean volume (Bld) [Entitic vol] 9.2 fL Normal 7.4-10.4 [facility] Comment on above: Performed By: #### H EMOG, IRON3, LIPD2, MG3, CMP3, FERR3, B12, FOLT3 #### [address] #### VD25H #### [facility] [address] [place] [address] #### ZINC2, WBB1O #### The performing lab is in the report. Platelets (Bld) [#/Vol] 295 10*3/uL Normal 140-440 [facility] Comment on above: Performed By: #### H EMOG, IRON3, LIPD2, MG3, CMP3, FERR3, B12, FOLT3 #### [address] #### VD25H #### [facility] [address] [place] [address] #### ZINC2, WBB1O #### The performing lab is in the report. RBC (Bld) [#/Vol] 4.38 10*6/uL Normal 3.80-5.20 [facility] Comment on above: Performed By: #### H EMOG, IRON3, LIPD2, MG3, CMP3, FERR3, B12, FOLT3 #### [address] #### VD25H #### [place] [address] [place] [address] #### ZINC2, WBB1O #### The performing lab is in the report. WBC (Bld) [#/Vol] 5.9 10*3/uL Normal 3.6-10.7 [facility] Comment on above: Performed By: #### H EMOG, IRON3, LIPD2, MG3, CMP3, FERR3, B12, FOLT3 #### [address] #### VD25H #### [place] [address] [place] [address] #### ZINC2, WBB1O #### The performing lab is in the report. Ironon 08-16-2019 Iron [Mass/Vol] 93 ug/dL 37 - 170 ug/dL [place] Test Performed by [facility], [address] [place] [address] Iron, Totalon 08-16-2019 Iron, Total 93 ug/dL Normal 37-170 [facility] Comment on above: Performed By: #### H EMOG, IRON3, LIPD2, MG3, CMP3, FERR3, B12, FOLT3 #### [address] #### VD25H #### [place] [address] [place] [address] #### ZINC2, WBB1O #### The performing lab is in the report. Lipid Panelon 08-16-2019 Cholesterol in HDL [Mass/Vol] 61 mg/dL High 40-60 [facility] Comment on above: Performed By: #### H EMOG, IRON3, LIPD2, MG3, CMP3, FERR3, B12, FOLT3 #### [address] #### VD25H #### [facility] [address] [place] [address] #### ZINC2, WBB1O #### The performing lab is in the report. Cholesterol.total/Jazmin sterol in HDL [Mass ratio] 3 Normal [facility] Comment on above: Result Comment: Ref Range: < 3 Low Risk for CHD 3-6 Mod Risk for CHD > 6 High Risk for CHD Performed By: #### H EMOG, IRON3, LIPD2, MG3, CMP3, FERR3, B12, FOLT3 #### [address] #### VD25H #### [facility] [address] [place] [address] #### ZINC2, WBB1O #### The performing lab is in the report. Protein [Mass/Vol] 91 mg/dL Normal <100 [facility] Comment on above: Performed By: #### H EMOG, IRON3, LIPD2, MG3, CMP3, FERR3, B12, FOLT3 #### [address] #### VD25H #### [facility] [address] [place] [address] #### ZINC2, WBB1O #### The performing lab is in the report. Triglyceride [Mass/Vol] 97 mg/dL Normal <150 [facility] Comment on above: Performed By: #### H EMOG, IRON3, LIPD2, MG3, CMP3, FERR3, B12, FOLT3 #### [address] #### VD25H #### [facility] [address] [place] [address] #### ZINC2, WBB1O #### The performing lab is in the report. Cholesterol [Mass/Vol] 171 mg/dL Normal < 200 [place], [place] Comment on above: Performed By: #### H EMOG, IRON3, LIPD2, MG3, CMP3, FERR3, B12, FOLT3 #### [address] #### VD25H #### [facility] [address] [place] [address] #### ZINC2, WBB1O #### The performing lab is in the report. Cholesterol in HDL [Mass/Vol] 61 mg/dL High 40 - 60 mg/dL [place], [place] Cholesterol in LDL [Mass/Vol] 91 mg/dL <100 [place] Cholesterol.total/Jazmin sterol in HDL [Mass ratio] 3 {ratio} [place] Comment on above: Ref Range: < 3 Low Risk for CHD 3-6 Mod Risk for CHD > 6 High Risk for CHD Triglyceride [Mass/Vol] 97 mg/dL <150 [place], [place] Magnesiumon 08-16-2019 Magnesium [Mass/Vol] 2.2 mg/dL Normal 1.6-2.3 [facility] Comment on above: Performed By: #### H EMOG, IRON3, LIPD2, MG3, CMP3, FERR3, B12, FOLT3 #### [address] #### VD25H #### [facility] [address] [place] [address] #### ZINC2, WBB1O #### The performing lab is in the report. Magnesium [Mass/Vol] 2.2 mg/dL 1.6 - 2 .3 mg/dL [place], [place] Otheron 08-16-2019 Test Performed by [address] [address] [place] Interpretation and review of laboratory results Abnormal [place] Test Performed by [address], [place] [address] [place] Vit D 25-OH, Totalon 020 Vit D 25-OH, Total 47 ng/mL Normal 30-100 [facility] Comment on above: Result Comment: Ther apy is based on measurement of Total 25-OHD with the following classification levels: Less than 20 ng/mL: Indicative of Vit D deficiency 20-30 ng/mL: Suggests Vit D insufficiency Optimal: Greater than or equal to 30 ng/mL Test performed by [employer], measuring Total Vitamin D, not individual fractions. Performed By: #### H EMOG, IRON3, LIPD2, MG3, CMP3, FERR3, B12, FOLT3 #### [address] [address] #### VD25H #### [place] [address] [place] [address] #### ZINC2, WBB1O #### The performing lab is in the report. Vitamin B12on 08-16-2019 Cobalamin (Vitamin B12) [Mass/Vol] pg/mL High 239-931 [facility] Comment on above: Performed By: #### H EMOG, IRON3, LIPD2, MG3, CMP3, FERR3, B12, FOLT3 #### [address] [address] #### VD25H #### [facility] [address] [place] [address] #### ZINC2, WBB1O #### The performing lab is in the report. Cobalamin (Vitamin B12) [Mass/Vol] pg/mL High 239 - 931 pg/mL [place] Interpretation and review of laboratory results Abnormal [place] Vitamin D 25 Hydroxyon 08-15 Vit D, 25-Hydroxy 47 ng/mL 30 - 100 ng/mL [place] Comment on above: Therapy is based on measurement of Total 25-OHD with the following classification levels: Less than 20 ng/mL: Indicative of Vit D deficiency 20-30 ng/mL: Suggests Vit D insufficiency Optimal: Greater than or equal to 30 ng/mL Test performed by [employer], measuring Total Vitamin D, not individual fractions. Test Performed by [facility], [address], [place], [place] [address] [place] Vitamin B1,Whole Bloodon Vitamin B1,Whole Blood 87 nmol/L Normal 70-180 [facility] Comment on above: Result Comment: INTE RPRETIVE INFORMATION: Vitamin B1, Whole Blood This assay measures the concentration of thiamine diphosphate (TDP), the primary active form of vitamin B1. Approximately 90 percent of vitamin B1 present in whole blood is TDP. Thiamine and thiamine monophosphate, which comprise the remaining 10 percent, are not measured. Test developed and characteristics determined by [employer]. See Compliance Statement B: [employer] Performed by [employer], [address] [place] [address] www.[email or web address], Rich Marie MD, Lab. Director Performed By: #### H EMOG, IRON3, LIPD2, MG3, CMP3, FERR3, B12, FOLT3 #### [address] [address] #### VD25H #### [facility] [address] [place] [address] #### ZINC2, WBB1O #### The performing lab is in the report. Zinc, Serumon 04-15-2019 Zinc, Serum 66.9 ug/dL Normal 60.0-120.0 [facility] Comment on above: Result Comment: INTE RPRETIVE INFORMATION: Zinc, Serum or Plasma Elevated results may be due to skin or collection-related contamination, including the use of a noncertified metal-free collection/transport tube. If contamination concerns exist due to elevated levels of serum/plasma zinc, confirmation with a second specimen collected in a certified metal-free tube is recommended. Circulating zinc concentrations are dependent on albumin status and are depressed with malnutrition. Zinc may also be lowered with infection, inflammation, stress, oral contraceptives, and . Zinc may be elevated with zinc supplementation or fasting. Elevated zinc concentrations may interfere with copper absorption. Test developed and characteristics determined by [employer]. See Compliance Statement B: [employer] Performed by [employer], [address] [facility] [place] [address] www.[email or web address], Rich Marie MD, Lab. Director Performed By: #### H EMOG, IRON3, LIPD2, MG3, CMP3, FERR3, B12, FOLT3 #### [address] [address] #### VD25H #### [facility] [address] [place] [address] #### ZINC2, WBB1O #### The performing lab is in the report. Vit D 25-OH, Totalon 020 Vit D 25-OH, Total 43 ng/mL Normal 30-100 [facility] Comment on above: Result Comment: Ther apy is based on measurement of Total 25-OHD with the following classification levels: Less than 20 ng/mL: Indicative of Vit D deficiency 20-30 ng/mL: Suggests Vit D insufficiency Optimal: Greater than or equal to 30 ng/mL Test performed by [employer], measuring Total Vitamin D, not individual fractions. Performed By: #### H EMOG, IRON3, LIPD2, MG3, CMP3, FERR3, B12, FOLT3 #### [address] [address] #### VD25H #### [facility] [address] [place] [address] #### ZINC2, WBB1O #### The performing lab is in the report. CBCon 04-13-2019 Erythrocyte distribution width (RBC) [Ratio] 12.6 % 11.5 - 14.5 % [facility] Work Phone: [phone] Hematocrit (Bld) [Volume fraction] 38.4 % 35 - 47 % [facility] Work Phone: Hemoglobin (Bld) [Mass/Vol] 13.1 g/dL 11.7 - 16 g/dL [facility] Work Phone: MCH (RBC) [Entitic mass] 31.7 pg 26 - 34 pg [facility] Work Phone: [phone] MCHC (RBC) [Mass/Vol] 34.2 % 32 - 36 % [facility] Work Phone: [phone] MCV (RBC) [Entitic vol] 92.7 fL 79 - 98 fL S [facility] Work Phone: [phone] Platelet mean volume (Bld) [Entitic vol] 9.2 fL 7.4 - 10.4 fL [facility] Work Phone: [phone] Platelets (Bld) [#/Vol] 238 10*3/uL 140 - 440 10*3/uL [facility] Work Phone: [phone] RBC (Bld) [#/Vol] 4.14 10*6/uL 3.8 - 5.2 10*6/uL [facility] Work Phone: [phone] WBC (Bld) [#/Vol] 4.5 10*3/uL 3.6 - 10.7 10*3/uL [facility] Work Phone: [phone] Test Performed by [facility], [address] [place] [address] [facility] Work Phone: [phone] Metabolic Panelon 04-13 ALP [Catalytic activity/Vol] 76 U/L Normal 38-126 [facility] Comment on above: Performed By: #### H EMOG, IRON3, LIPD2, MG3, CMP3, FERR3, B12, FOLT3 #### [address] [address] #### VD25H #### [facility] [address] [place] [address] #### ZINC2, WBB1O #### The performing lab is in the report. ALT [Catalytic activity/Vol] 41 U/L Normal 13-69 [facility] Comment on above: Performed By: #### H EMOG, IRON3, LIPD2, MG3, CMP3, FERR3, B12, FOLT3 #### [address] [address] #### VD25H #### [facility] [address] [place] [address] #### ZINC2, WBB1O #### The performing lab is in the report. Anion gap [Moles/Vol] 8 Normal [facility] Comment on above: Performed By: #### H EMOG, IRON3, LIPD2, MG3, CMP3, FERR3, B12, FOLT3 #### [address] #### VD25H #### [facility] [address] [place] [address] #### ZINC2, WBB1O #### The performing lab is in the report. AST [Catalytic activity/Vol] 56 U/L High 15-46 [facility] Comment on above: Performed By: #### H EMOG, IRON3, LIPD2, MG3, CMP3, FERR3, B12, FOLT3 #### [address] #### VD25H #### [address] [place] #### ZINC2, WBB1O #### The performing lab is in the report. Bilirubin [Mass/Vol] 0.9 mg/dL Normal 0.2-1.3 [facility] Comment on above: Performed By: #### H EMOG, IRON3, LIPD2, MG3, CMP3, FERR3, B12, FOLT3 #### [address] #### VD25H #### [address] [place] [address] #### ZINC2, WBB1O #### The performing lab is in the report. Calcium [Mass/Vol] 9.1 mg/dL Normal 8.4-10.4 [facility] Comment on above: Performed By: #### H EMOG, IRON3, LIPD2, MG3, CMP3, FERR3, B12, FOLT3 #### [address] #### VD25H #### [address] [place] [address] #### ZINC2, WBB1O #### The performing lab is in the report. CO2 [Moles/Vol] 27 mmol/L Normal 22-30 [facility] Comment on above: Performed By: #### H EMOG, IRON3, LIPD2, MG3, CMP3, FERR3, B12, FOLT3 #### [address] #### VD25H #### [address] [place] #### ZINC2, WBB1O #### The performing lab is in the report. Glucose [Mass/Vol] 65 mg/dL Low 70-100 [facility] Comment on above: Performed By: #### H EMOG, IRON3, LIPD2, MG3, CMP3, FERR3, B12, FOLT3 #### [address] #### VD25H #### [address] [place] #### ZINC2, WBB1O #### The performing lab is in the report. Protein [Mass/Vol] 6.8 g/dL Normal 6.3-8.2 [facility] Comment on above: Performed By: #### H EMOG, IRON3, LIPD2, MG3, CMP3, FERR3, B12, FOLT3 #### [address] #### VD25H #### [address] [place] #### ZINC2, WBB1O #### The performing lab is in the report. Urea nitrogen [Mass/Vol] 15 mg/dL Normal 7-20 [facility] Comment on above: Performed By: #### H EMOG, IRON3, LIPD2, MG3, CMP3, FERR3, B12, FOLT3 #### [address] #### VD25H #### [address] [place] #### ZINC2, WBB1O #### The performing lab is in the report. Creatinine [Mass/Vol] 0.41 mg/dL Low 0.52-1.25 [facility] Comment on above: Performed By: #### H EMOG, IRON3, LIPD2, MG3, CMP3, FERR3, B12, FOLT3 #### [address] #### VD25H #### [facility] [address] [place] [address] #### ZINC2, WBB1O #### The performing lab is in the report. GFR/1.73 sq M predicted among blacks MDRD (S/P/Bld) [Vol rate/Area] mL/min/{1.73_m2} Normal >60 [facility] Comment on above: Performed By: #### H EMOG, IRON3, LIPD2, MG3, CMP3, FERR3, B12, FOLT3 #### [address] #### VD25H #### [facility] [address] [place] [address] #### ZINC2, WBB1O #### The performing lab is in the report. GFR/1.73 sq M predicted among non-blacks MDRD (S/P/Bld) [Vol rate/Area] mL/min/{1.73_m2} Normal >60 [facility] Comment on above: Result Comment: Sour ce- MDRD equation with creatinine calibration to IDMS(NKDEP) eGFR not recommended for drug dose adjustment Performed By: #### H EMOG, IRON3, LIPD2, MG3, CMP3, FERR3, B12, FOLT3 #### [address] #### VD25H #### [facility] [address] [place] [address] #### ZINC2, WBB1O #### The performing lab is in the report. Potassium [Moles/Vol] 4.5 mmol/L Normal 3.5-5.1 [facility] Comment on above: Performed By: #### H EMOG, IRON3, LIPD2, MG3, CMP3, FERR3, B12, FOLT3 #### [address] #### VD25H #### [facility] [address] [place] [address] #### ZINC2, WBB1O #### The performing lab is in the report. Albumin [Mass/Vol] 4.0 g/dL Normal 3.5-5.0 [facility] Comment on above: Performed By: #### H EMOG, IRON3, LIPD2, MG3, CMP3, FERR3, B12, FOLT3 #### [address] #### VD25H #### [place] [address] [place] [address] #### ZINC2, WBB1O #### The performing lab is in the report. Chloride [Moles/Vol] 104 mmol/L Normal 98-107 [facility] Comment on above: Performed By: #### H EMOG, IRON3, LIPD2, MG3, CMP3, FERR3, B12, FOLT3 #### [address] #### VD25H #### [facility] [address] [place] [address] #### ZINC2, WBB1O #### The performing lab is in the report. Sodium [Moles/Vol] 139 mmol/L Normal 135-145 [facility] Comment on above: Performed By: #### H EMOG, IRON3, LIPD2, MG3, CMP3, FERR3, B12, FOLT3 #### [address] #### VD25H #### [facility] [address] [place] [address] #### ZINC2, WBB1O #### The performing lab is in the report. Comprehensive Metabolic Pane juan 04-13-2019 Albumin [Mass/Vol] 4.0 g/dL 3.5 - 5 g/dL [facility] Work Phone: ALP [Catalytic activity/Vol] 76 U/L 38 - 126 U/L [facility] Work Phone: [phone] ALT [Catalytic activity/Vol] 41 U/L 13 - 69 U/L [facility] Work Phone: [phone] Anion gap [Moles/Vol] 8 mmol/L [facility] Work Phone: [phone] AST [Catalytic activity/Vol] 56 U/L High 15 - 46 U/L [facility] Work Phone: [phone] Bilirubin Ql (U) 0.9 mg/dL 0.2 - 1.3 mg/dL [facility] Work Phone: [phone] Calcium [Mass/Vol] 9.1 mg/dL 8.4 - 10. 4 mg/dL [facility] Work Phone: [phone] Chloride [Moles/Vol] 104 mmol/L 98 - 10 7 mmol/L [facility] Work Phone: [phone] CO2 [Moles/Vol] 27 mmol/L 22 - 30 mmol/L [facility] Work Phone: [phone] Creatinine [Mass/Vol] 0.41 mg/dL Low 0.52 - 1.25 mg/dL [facility] Work Phone: [phone] EGFR IF NonAfrican Kosovan >60.0 >60 mL/min [facility] Work Phone: [phone] Comment on above: Source- MDRD equatio n with creatinine calibration to IDMS(NKDEP) eGFR not recommended for drug dose adjustment GFR/1.73 sq M predicted among blacks MDRD (S/P/Bld) [Vol rate/Area] mL/min/{1.73_m2} >60 mL/min [facility] Work Phone: [phone] Glucose [Mass/Vol] 65 mg/dL Low 70 - 100 mg/dL [facility] Work Phone: [phone] Interpretation and review of laboratory results Abnormal [facility] Work Phone: [phone] Potassium [Moles/Vol] 4.5 mmol/L 3.5 - 5.1 mmol/L [facility] Work Phone: [phone] Protein [Mass/Vol] 6.8 g/dL 6.3 - 8.2 g/dL [facility] Work Phone: [phone] Sodium [Moles/Vol] 139 mmol/L 135 - 145 mmol/L [facility] Work Phone: Urea nitrogen [Mass/Vol] 15 mg/dL 7 - 20 mg/dL [facility] Work Phone: [phone] Ferritinon 04-13-2019 Ferritin [Mass/Vol] 177 ng/mL Normal 8-252 [facility] Comment on above: Performed By: #### H EMOG, IRON3, LIPD2, MG3, CMP3, FERR3, B12, FOLT3 #### [address] [address] #### VD25H #### [facility] [address] [place] [address] #### ZINC2, WBB1O #### The performing lab is in the report. Ferritin [Mass/Vol] 177 ng/mL 8 - 252 ng/mL [facility] Work Phone: [phone] Test Performed by [facility], [address] [place] [address] [facility] Work Phone: [phone] Folateon 04-13-2019 Folate 6.4 ng/mL Normal 2.8-20.0 [facility] Comment on above: Performed By: #### H EMOG, IRON3, LIPD2, MG3, CMP3, FERR3, B12, FOLT3 #### [facility] [employer] [address] [address] #### VD25H #### [facility] [address] [place] [address] #### ZINC2, WBB1O #### The performing lab is in the report. Folate 6.4 ng/mL 2.8 - 20 ng/mL [facility] Work Phone: [phone] Hemogramon 04-13-2019 Erythrocyte distribution width (RBC) [Ratio] 12.6 % Normal 11.5-14.5 [facility] Comment on above: Performed By: #### H EMOG, IRON3, LIPD2, MG3, CMP3, FERR3, B12, FOLT3 #### [address] #### VD25H #### [place] [address] [place] [address] #### ZINC2, WBB1O #### The performing lab is in the report. Hematocrit (Bld) [Volume fraction] 38.4 % Normal 35.0-47.0 [facility] Comment on above: Performed By: #### H EMOG, IRON3, LIPD2, MG3, CMP3, FERR3, B12, FOLT3 #### [address] #### VD25H #### [address] [place] [address] #### ZINC2, WBB1O #### The performing lab is in the report. Hemoglobin (Bld) [Mass/Vol] 13.1 g/dL Normal 11.7-16.0 [facility] Comment on above: Performed By: #### H EMOG, IRON3, LIPD2, MG3, CMP3, FERR3, B12, FOLT3 #### [address] #### VD25H #### [address] [place] [address] #### ZINC2, WBB1O #### The performing lab is in the report. MCH (RBC) [Entitic mass] 31.7 pg Normal 26.0-34.0 [facility] Comment on above: Performed By: #### H EMOG, IRON3, LIPD2, MG3, CMP3, FERR3, B12, FOLT3 #### [address] #### VD25H #### [address] [place] [address] #### ZINC2, WBB1O #### The performing lab is in the report. MCHC (RBC) [Mass/Vol] 34.2 % Normal 32.0-36.0 [facility] Comment on above: Performed By: #### H EMOG, IRON3, LIPD2, MG3, CMP3, FERR3, B12, FOLT3 #### [address] #### VD25H #### [facility] [address] [place] [address] #### ZINC2, WBB1O #### The performing lab is in the report. MCV (RBC) [Entitic vol] 92.7 fL Normal 79.0-98.0 [facility] Comment on above: Performed By: #### H EMOG, IRON3, LIPD2, MG3, CMP3, FERR3, B12, FOLT3 #### [address] #### VD25H #### [address] [place] [address] #### ZINC2, WBB1O #### The performing lab is in the report. Platelet mean volume (Bld) [Entitic vol] 9.2 fL Normal 7.4-10.4 [facility] Comment on above: Performed By: #### H EMOG, IRON3, LIPD2, MG3, CMP3, FERR3, B12, FOLT3 #### [address] #### VD25H #### [address] [place] [address] #### ZINC2, WBB1O #### The performing lab is in the report. Platelets (Bld) [#/Vol] 238 10*3/uL Normal 140-440 [facility] Comment on above: Performed By: #### H EMOG, IRON3, LIPD2, MG3, CMP3, FERR3, B12, FOLT3 #### [address] #### VD25H #### [address] [place] [address] #### ZINC2, WBB1O #### The performing lab is in the report. RBC (Bld) [#/Vol] 4.14 10*6/uL Normal 3.80-5.20 [facility] Comment on above: Performed By: #### H EMOG, IRON3, LIPD2, MG3, CMP3, FERR3, B12, FOLT3 #### [address] [address] #### VD25H #### [facility] [address] [place] [address] #### ZINC2, WBB1O #### The performing lab is in the report. WBC (Bld) [#/Vol] 4.5 10*3/uL Normal 3.6-10.7 [facility] Comment on above: Performed By: #### H EMOG, IRON3, LIPD2, MG3, CMP3, FERR3, B12, FOLT3 #### [address] #### VD25H #### [facility] [address] [place] [address] #### ZINC2, WBB1O #### The performing lab is in the report. Ironon 04-13-2019 Iron [Mass/Vol] 119 ug/dL 37 - 170 ug/dL [facility] Work Phone: Test Performed by [address] Work Phone: Iron, Totalon 04-13-2019 Iron, Total 119 ug/dL Normal 37-170 [facility] Comment on above: Performed By: #### H EMOG, IRON3, LIPD2, MG3, CMP3, FERR3, B12, FOLT3 #### [address] [address] #### VD25H #### [facility] [address] [place] [address] #### ZINC2, WBB1O #### The performing lab is in the report. Lipid Panelon 04-13-2019 Cholesterol in HDL [Mass/Vol] 47 mg/dL Normal 40-60 [facility] Comment on above: Performed By: #### H EMOG, IRON3, LIPD2, MG3, CMP3, FERR3, B12, FOLT3 #### [address] #### VD25H #### [facility] [address] [place] [address] #### ZINC2, WBB1O #### The performing lab is in the report. Cholesterol.total/Jazmin sterol in HDL [Mass ratio] 3 Normal [facility] Comment on above: Result Comment: Ref Range: < 3 Low Risk for CHD 3-6 Mod Risk for CHD > 6 High Risk for CHD Performed By: #### H EMOG, IRON3, LIPD2, MG3, CMP3, FERR3, B12, FOLT3 #### [address] #### VD25H #### [address] [place] [address] #### ZINC2, WBB1O #### The performing lab is in the report. Protein [Mass/Vol] 70 mg/dL Normal <100 [facility] Comment on above: Performed By: #### H EMOG, IRON3, LIPD2, MG3, CMP3, FERR3, B12, FOLT3 #### [address] #### VD25H #### [place] [address] [place] [address] #### ZINC2, WBB1O #### The performing lab is in the report. Triglyceride [Mass/Vol] 70 mg/dL Normal <150 [facility] Comment on above: Performed By: #### H EMOG, IRON3, LIPD2, MG3, CMP3, FERR3, B12, FOLT3 #### [address] #### VD25H #### [facility] [address] [place] [address] #### ZINC2, WBB1O #### The performing lab is in the report. Cholesterol [Mass/Vol] 131 mg/dL Normal < 200 [facility] Comment on above: Performed By: #### H EMOG, IRON3, LIPD2, MG3, CMP3, FERR3, B12, FOLT3 #### [address] #### VD25H #### [facility] [address] [place] [address] #### ZINC2, WBB1O #### The performing lab is in the report. Cholesterol [Mass/Vol] 131 mg/dL <200 [facility] Work Phone: [phone] Cholesterol in HDL [Mass/Vol] 47 mg/dL 40 - 60 mg/dL [facility] Work Phone: [phone] Cholesterol in LDL [Mass/Vol] 70 mg/dL <100 [facility] Work Phone: [phone] Cholesterol.total/Jazmin sterol in HDL [Mass ratio] 3 {ratio} [facility] Work Phone: [phone] Comment on above: Ref Range: < 3 Low Risk for CHD 3-6 Mod Risk for CHD > 6 High Risk for CHD Triglyceride [Mass/Vol] 70 mg/dL <150 [facility] Work Phone: [phone] Magnesiumon 04-13-2019 Magnesium [Mass/Vol] 2.1 mg/dL Normal 1.6-2.3 [facility] Comment on above: Performed By: #### H EMOG, IRON3, LIPD2, MG3, CMP3, FERR3, B12, FOLT3 #### [address] #### [id number] #### [facility] [address] [place] [address] #### ZINC2, [id number] #### The performing lab is in the report. Magnesium [Mass/Vol] 2.1 mg/dL 1.6 - 2 .3 mg/dL [facility] Work Phone: [phone] Otheron 04-13-2019 Test Performed by [facility], [address] [place] [id number] [place] [address] Work Phone: [phone] Test Performed by [facility], [address] [place] [id number] [facility] Work Phone: Vitamin B12on 04-13-2019 Cobalamin (Vitamin B12) [Mass/Vol] 782 pg/mL Normal 239-931 [facility] Comment on above: Performed By: #### H EMOG, IRON3, LIPD2, MG3, CMP3, FERR3, B12, FOLT3 #### [facility] [address] [place] [address] #### [id number] #### [facility] [address] [place] [address] #### ZINC2, [id number] #### The performing lab is in the report. Cobalamin (Vitamin B12) [Mass/Vol] 782 pg/mL 239 - 931 pg/mL [facility] Work Phone: Zinc, Serumon 03-20-2018 Zinc, Serum 94 ug/dL Normal 60-120 [facility] Comment on above: Result Comment: INTE RPRETIVE INFORMATION: Zinc, Serum or Plasma Circulating zinc concentrations are dependent on albumin status and are depressed with malnutrition. Zinc may also be lowered with infection, inflammation, stress, oral contraceptives, and . Zinc may be elevated with zinc supplementation or fasting. Elevated zinc concentrations may interfere with copper absorption. Test developed and characteristics determined by [facility]. See Compliance Statement B: [facility] [employer]/ Performed by [facility], [address] [place] [id number] [email or web address], Rich Marie MD - Lab. Director Performed By: #### Z INC2 #### The performing lab is in the report. Comp Metabolic Panelon 03-18 ALT [Catalytic activity/Vol] 63 U/L Normal 13-69 [facility] Comment on above: Performed By: #### C MP3, MG3, IRON3, HEMOG, FERR3, FOLT3, B12 #### [facility] [address] [place] [address] Calcium [Mass/Vol] 9.5 mg/dL Normal 8.4-10.4 [facility] Comment on above: Performed By: #### C MP3, MG3, IRON3, HEMOG, FERR3, FOLT3, B12 #### [facility] [address] [place] [address] ALP [Catalytic activity/Vol] 78 U/L Normal 38-126 [facility] Comment on above: Performed By: #### C MP3, MG3, IRON3, HEMOG, FERR3, FOLT3, B12 #### [facility] [address] [place] [address] Anion gap [Moles/Vol] 9 Normal [facility] Comment on above: Performed By: #### C MP3, MG3, IRON3, HEMOG, FERR3, FOLT3, B12 #### [facility] [address] [place] [address] AST [Catalytic activity/Vol] 44 U/L Normal 15-46 [facility] Comment on above: Performed By: #### C MP3, MG3, IRON3, HEMOG, FERR3, FOLT3, B12 #### [facility] [address] [place] [address] Bilirubin [Mass/Vol] 0.6 mg/dL Normal 0.2-1.3 [facility] Comment on above: Performed By: #### C MP3, MG3, IRON3, HEMOG, FERR3, FOLT3, B12 #### [facility] [address] [place] [address] CO2 [Moles/Vol] 27 mmol/L Normal 22-30 [facility] Comment on above: Performed By: #### C MP3, MG3, IRON3, HEMOG, FERR3, FOLT3, B12 #### [facility] [address] [place] [address] Creatinine [Mass/Vol] 0.46 mg/dL Low 0.52-1.25 [facility] Comment on above: Performed By: #### C MP3, MG3, IRON3, HEMOG, FERR3, FOLT3, B12 #### [facility] [address] [place] [address] GFR/1.73 sq M predicted among blacks MDRD (S/P/Bld) [Vol rate/Area] mL/min/{1.73_m2} Normal >60 [facility] Comment on above: Performed By: #### C MP3, MG3, IRON3, HEMOG, FERR3, FOLT3, B12 #### [facility] [address] [place] [address] GFR/1.73 sq M predicted among non-blacks MDRD (S/P/Bld) [Vol rate/Area] mL/min/{1.73_m2} Normal >60 [facility] Comment on above: Result Comment: Sour ce- MDRD equation with creatinine calibration to IDMS(NKDEP) eGFR not recommended for drug dose adjustment Performed By: #### C MP3, MG3, IRON3, HEMOG, FERR3, FOLT3, B12 #### [facility] [address] [place] [address] Glucose [Mass/Vol] 80 mg/dL Normal 70-100 [facility] Comment on above: Performed By: #### C MP3, MG3, IRON3, HEMOG, FERR3, FOLT3, B12 #### [facility] [address] [place] [address] Protein [Mass/Vol] 7.0 g/dL Normal 6.3-8.2 [facility] Comment on above: Performed By: #### C MP3, MG3, IRON3, HEMOG, FERR3, FOLT3, B12 #### [facility] [address] [place] [address] Urea nitrogen [Mass/Vol] 13 mg/dL Normal 7-20 [facility] Comment on above: Performed By: #### C MP3, MG3, IRON3, HEMOG, FERR3, FOLT3, B12 #### [facility] [address] [place] [address] Potassium [Moles/Vol] 3.7 mmol/L Normal 3.5-5.1 [facility] Comment on above: Performed By: #### C MP3, MG3, IRON3, HEMOG, FERR3, FOLT3, B12 #### [facility] [address] [place] [address] Albumin [Mass/Vol] 4.4 g/dL Normal 3.5-5.0 [facility] Comment on above: Performed By: #### C MP3, MG3, IRON3, HEMOG, FERR3, FOLT3, B12 #### [facility] [address] [place] [address] Chloride [Moles/Vol] 105 mmol/L Normal 98-107 [facility] Comment on above: Performed By: #### C MP3, MG3, IRON3, HEMOG, FERR3, FOLT3, B12 #### [facility] [address] [place] [address] Sodium [Moles/Vol] 140 mmol/L Normal 135-145 [facility] Comment on above: Performed By: #### C MP3, MG3, IRON3, HEMOG, FERR3, FOLT3, B12 #### [facility] [address] [place] [address] Ferritinon 03-18-2018 Ferritin [Mass/Vol] 141 ng/mL Normal 8-252 [facility] Comment on above: Performed By: #### C MP3, MG3, IRON3, HEMOG, FERR3, FOLT3, B12 #### [facility] [address] [place] [address] Folateon 03-18-2018 Folate > 20.0 Normal 2.8-20.0 [facility] Comment on above: Performed By: #### C MP3, MG3, IRON3, HEMOG, FERR3, FOLT3, B12 #### [facility] [address] [place] [address] Hemogramon 03-18-2018 Erythrocyte distribution width (RBC) [Ratio] 13.8 % Normal 11.5-14.5 [facility] Comment on above: Performed By: #### C MP3, MG3, IRON3, HEMOG, FERR3, FOLT3, B12 #### [facility] [address] [place] [address] Hematocrit (Bld) [Volume fraction] 39.7 % Normal 35.0-47.0 [facility] Comment on above: Performed By: #### C MP3, MG3, IRON3, HEMOG, FERR3, FOLT3, B12 #### [facility] [address] [place] [address] Hemoglobin (Bld) [Mass/Vol] 13.2 g/dL Normal 11.7-16.0 [facility] Comment on above: Performed By: #### C MP3, MG3, IRON3, HEMOG, FERR3, FOLT3, B12 #### [facility] [address] [place] [address] MCH (RBC) [Entitic mass] 29.7 pg Normal 26.0-34.0 [facility] Comment on above: Performed By: #### C MP3, MG3, IRON3, HEMOG, FERR3, FOLT3, B12 #### [facility] [address] [place] [address] MCHC (RBC) [Mass/Vol] 33.1 % Normal 32.0-36.0 [facility] Comment on above: Performed By: #### C MP3, MG3, IRON3, HEMOG, FERR3, FOLT3, B12 #### [facility] [address] [place] [address] MCV (RBC) [Entitic vol] 89.5 fL Normal 79.0-98.0 [facility] Comment on above: Performed By: #### C MP3, MG3, IRON3, HEMOG, FERR3, FOLT3, B12 #### [facility] [address] [place] [address] Platelet mean volume (Bld) [Entitic vol] 9.2 fL Normal 7.4-10.4 [facility] Comment on above: Performed By: #### C MP3, MG3, IRON3, HEMOG, FERR3, FOLT3, B12 #### [facility] [address] [place] [address] Platelets (Bld) [#/Vol] 298 10*3/uL Normal 140-440 [facility] Comment on above: Performed By: #### C MP3, MG3, IRON3, HEMOG, FERR3, FOLT3, B12 #### [facility] [address] [place] [address] RBC (Bld) [#/Vol] 4.44 10*6/uL Normal 3.80-5.20 [facility] Comment on above: Performed By: #### C MP3, MG3, IRON3, HEMOG, FERR3, FOLT3, B12 #### [facility] [address] [place] [address] WBC (Bld) [#/Vol] 7.7 10*3/uL Normal 3.6-10.7 [facility] Comment on above: Performed By: #### C MP3, MG3, IRON3, HEMOG, FERR3, FOLT3, B12 #### [facility] [address] [place] [address] Iron, Totalon 03-18-2018 Iron, Total 29 ug/dL Low 37-170 [facility] Comment on above: Performed By: #### C MP3, MG3, IRON3, HEMOG, FERR3, FOLT3, B12 #### [facility] [address] [place] [address] Magnesiumon 03-18-2018 Magnesium [Mass/Vol] 1.8 mg/dL Normal 1.6-2.3 [facility] Comment on above: Performed By: #### C MP3, MG3, IRON3, HEMOG, FERR3, FOLT3, B12 #### [facility] [address] [place] [address] Vitamin B12on 03-18-2018 Cobalamin (Vitamin B12) [Mass/Vol] 851 pg/mL Normal 239-931 [facility] Comment on above: Performed By: #### C MP3, MG3, IRON3, HEMOG, FERR3, FOLT3, B12 #### [facility] [address] [place] [address] Vital Signs Date Time Vital Sign Value Performing Clinician Facility 10-11-2024 20:00-0400 Diastolic blood pressure 93 mm[Hg] Dr. Emma Harmon DO Work Phone: [facility] 10-11-2024 20:00-0400 Heart rate 47 /min Dr. Emma Harmon DO Work Phone: [facility] 10-11-2024 20:00-0400 Respiratory rate 16 /min Dr. Emma Harmon DO Work Phone: [facility] 10-11-2024 20:00-0400 SaO2% (BldA) [Mass fraction] 94 % Dr. Emma Harmon DO Work Phone: [facility] 10-11-2024 20:00-0400 Systolic blood pressure 163 mm[Hg] Dr. Emma Harmon DO Work Phone: [facility] 10-11-2024 18:36-0400 Body temperature 98.2 [degF] Dr. Emma Harmon DO Work Phone: 1(611)819-729661 [place] [address] 10-11-2024 16:07-0400 Body height 157.[address] Emma Harmon DO Work Phone: 8(243)852-778761 [place] [address] 10-11-2024 16:07-0400 Body mass index (BMI) [Ratio] 32.3 kg/m2 Dr. Emma Harmon DO Work Phone: 3(450)276-016861 [place] [address] 10-11-2024 16:07-0400 Body weight 80.[address] Emma Harmon DO Work Phone: [facility] 08-17-2024 22:11-0400 Body temperature 98.4 [degF] Dr. Kvng Pelaez MD Work Phone: [facility] 08-17-2024 22:11-0400 Diastolic blood pressure 80 mm[Hg] Dr. Kvng Pelaez MD Work Phone: [facility] 08-17-2024 22:11-0400 Heart rate 50 /min Dr. Kvng Pelaez MD Work Phone: [facility] 08-17-2024 22:11-0400 Respiratory rate 16 /min Dr. Knvg Pelaez MD Work Phone: [facility] 08-17-2024 22:11-0400 SaO2% (BldA) [Mass fraction] 93 % Dr. Kvng Pelaez MD Work Phone: 7(605)214-490619 [place] [address] 08-17-2024 22:11-0400 Systolic blood pressure 130 mm[Hg] Dr. Kvng Pelaez MD Work Phone: 9(215)992-134719 [place] [address] 08-17-2024 16:54-0400 Body height 157.[address] Kvng Pelaez MD Work Phone: 1(355)969-424219 [place] [address] 08-17-2024 16:54-0400 Body mass index (BMI) [Ratio] 32.3 kg/m2 Dr. Kvng Pelaez MD Work Phone: 8(635)374-409719 [place] [address] 08-17-2024 16:54-0400 Body weight 80.[address] Kvng Pelaez MD Work Phone: 5(657)422-361919 [place] [address] 06-05-2024 13:00-0400 Diastolic blood pressure 71 mm[Hg] Dr. Kvng Pelaez MD Work Phone: 6(472)902-560719 [place] [address] 06-05-2024 13:00-0400 Heart rate 63 /min Dr. Kvng Pelaez MD Work Phone: 1(883)047-018219 [place] [address] 06-05-2024 13:00-0400 Respiratory rate 18 /min Dr. Kvng Pelaez MD Work Phone: 8(945)835-667219 [place] [address] 06-05-2024 13:00-0400 SaO2% (BldA) [Mass fraction] 95 % Dr. Kvng Pelaez MD Work Phone: 5(809)959-396819 [place] [address] 06-05-2024 13:00-0400 Systolic blood pressure 131 mm[Hg] Dr. Kvng Pelaez MD Work Phone: 0(855)771-910419 [place] [address] 06-05-2024 09:34-0400 Body height [address] Kvng Pelaez MD Work Phone: 5(175)135-061119 [place] [address] 06-05-2024 09:34-0400 Body mass index (BMI) [Ratio] 31.8 kg/m2 Dr. Kvng Pelaez MD Work Phone: 9(734)299-816019 [place] [address] 06-05-2024 09:34-0400 Body temperature 98.1 [degF] Dr. Kvng Pelaez MD Work Phone: 8(101)668-675419 [place] [address] 06-05-2024 09:34-0400 Body weight 78.[address] Kvng Pelaez MD Work Phone: 7(755)015-962719 [place] [address] 05-20-2024 18:22-0400 Body temperature 98.3 [degF] Dr. Kvng Pelaez MD Work Phone: 8(939)567-636719 [place] [address] 05-20-2024 18:22-0400 Diastolic blood pressure 74 mm[Hg] Dr. Kvng Pelaez MD Work Phone: 5(706)019-763419 [place] [address] 05-20-2024 18:22-0400 Heart rate 62 /min Dr. Kvng Pelaez MD Work Phone: 8(133)064-029219 [place] [address] 05-20-2024 18:22-0400 Respiratory rate 16 /min Dr. Kvng Pelaez MD Work Phone: 8(631)261-267819 [place] [address] 05-20-2024 18:22-0400 SaO2% (BldA) [Mass fraction] 99 % Dr. Kvng Pelaez MD Work Phone: 5(126)266-756819 [place] [address] 05-20-2024 18:22-0400 Systolic blood pressure 136 mm[Hg] Dr. Kvng Pelaez MD Work Phone: 2(354)586-124119 [place] [address] 05-20-2024 15:07-0400 Body height 157.[address] Kvng Pelaez MD Work Phone: 7(444)110-524219 [place] [address] 05-20-2024 15:07-0400 Body mass index (BMI) [Ratio] 32.1 kg/m2 Dr. Kvng Pelaez MD Work Phone: 4(847)627-895919 [place] [address] 05-20-2024 15:07-0400 Body weight 79.[address] Kvng Pelaez MD Work Phone: 4(268)832-367019 [place] [address] 01-20-2024 10:06-0500 Diastolic Blood Pressure Non-Invasive 71 mm[Hg] MARIANA BROOKS DO [facility] 01-20-2024 10:06-0500 Heart rate 61 /min MARIANA PINEDA DO [facility] 01-20-2024 10:06-0500 Respiratory rate 18 /min MARIANA PINEDA DO [facility] 01-20-2024 10:06-0500 Systolic Blood Pressure Non-Invasive 128 mm[Hg] MARIANA PINEDA DO [facility] 01-20-2024 09:53-0500 Diastolic Blood Pressure Non-Invasive 72 mm[Hg] MARIANA PINEDA DO [facility] 01-20-2024 09:53-0500 Heart rate 50 /min MARIANA PINEDA DO [facility] 01-20-2024 09:53-0500 Respiratory rate 16 /min MARIANA PINEDA DO [facility] 01-20-2024 09:53-0500 Systolic Blood Pressure Non-Invasive 135 mm[Hg] MARIANA PINEDA DO [facility] 01-20-2024 09:45-0500 Diastolic Blood Pressure Non-Invasive 69 mm[Hg] MARIANA PINEDA DO [facility] 01-20-2024 09:45-0500 Heart rate 50 /min MARIANA PINEDA DO [facility] 01-20-2024 09:45-0500 Respiratory rate 16 /min MARIANA PINEDA DO [facility] 01-20-2024 09:45-0500 Systolic Blood Pressure Non-Invasive 126 mm[Hg] MARIANA PINEDA DO [facility] 01-20-2024 09:36-0500 Body temperature 97.16 [degF] MARIANA PINEDA DO [facility] 01-20-2024 09:35-0500 Respiratory Rate - Anes 20 br/min MARIANA PINEDA DO [facility] 01-20-2024 09:30-0500 Respiratory Rate - Anes 20 br/min MARIANA PINEDA DO [facility] 01-20-2024 09:25-0500 Respiratory Rate - Anes 13 br/min MARIANA PINEDA DO [facility] 01-20-2024 09:11-0500 Body height 154.94 cm MARIANA PINEDA DO [facility] 01-20-2024 09:11-0500 Body temperature 97.7 [degF] MARIANA PINEDA DO [facility] 01-20-2024 09:11-0500 Body weight 72.73 kg MARIANA PINEDA DO [facility] 01-20-2024 09:11-0500 Heart rate 54 /min MARIANA PINEDA DO [facility] 11-30-2023 19:12-0400 Diastolic Blood Pressure Non-Invasive 47 mm[Hg] DR KURT BARROSO MD [facility] 11-30-2023 19:12-0400 Heart rate 60 /min DR KURT BARROSO MD [facility] 11-30-2023 19:12-0400 Mean blood pressure 80 mm[Hg] DR KURT BARROSO MD [facility] 11-30-2023 19:12-0400 Respiratory rate 17 /min DR KURT BARROSO MD [facility] 11-30-2023 19:12-0400 Systolic Blood Pressure Non-Invasive 158 mm[Hg] DR KURT BARROSO MD [facility] 11-30-2023 17:49-0400 Diastolic Blood Pressure Non-Invasive 78 mm[Hg] DR KURT BARROSO MD [facility] 11-30-2023 17:49-0400 Heart rate 56 /min DR KURT BARROSO MD [facility] 11-30-2023 17:49-0400 Respiratory rate 16 /min DR KURT BARROSO MD [facility] 11-30-2023 17:49-0400 Systolic Blood Pressure Non-Invasive 135 mm[Hg] DR KURT BARROSO MD [facility] 11-30-2023 17:24-0400 Diastolic Blood Pressure Non-Invasive 62 mm[Hg] DR KURT BARROSO MD [facility] 11-30-2023 17:24-0400 Heart rate 52 /min DR KURT BARROSO MD [facility] 11-30-2023 17:24-0400 Respiratory rate 16 /min DR KURT BARROSO MD [facility] 11-30-2023 17:24-0400 Systolic Blood Pressure Non-Invasive 129 mm[Hg] DR KURT BARROSO MD [facility] 11-30-2023 15:10-0400 Body temperature 98.06 [degF] DR KURT BARROSO MD [facility] 11-30-2023 15:10-0400 Body weight 81.[address] KURT BARROSO MD [facility] 11-30-2023 15:10-0400 Heart rate 60 /min DR KURT BARROSO MD [facility] 11-01-2023 11:13-0400 Body temperature 98.71 [degF] Raf Ace MD PhD Work Phone: [facility] [employer] 11-01-2023 11:13-0400 Diastolic blood pressure 66 mm[Hg] Raf Ace MD PhD Work Phone: [facility] [employer] 11-01-2023 11:13-0400 Heart rate 53 /min Raf Ace MD PhD Work Phone: [facility] 11-01-2023 11:13-0400 Respiratory rate 18 /min Raf Ace MD PhD Work Phone: [facility] [employer] 11-01-2023 11:13-0400 SaO2% (BldA) [Mass fraction] 94 % Raf Ace MD PhD Work Phone: [facility] [employer] 11-01-2023 11:13-0400 Systolic blood pressure 124 mm[Hg] Raf Ace MD PhD Work Phone: [facility] [employer] 10-31-2023 09:24-0400 Body height 167.6 cm Raf Ace MD PhD Work Phone: [facility] [employer] 10-30-2023 14:33-0400 Body mass index (BMI) [Ratio] 28.4 kg/m2 Raf Ace MD PhD Work Phone: [facility] [employer] 10-30-2023 14:33-0400 Body weight 79.8 kg Raf Ace MD PhD Work Phone: [facility] 10-01-2023 14:14-0400 Body height 157.5 cm Rhys Navarrete CNP Work Phone: [facility] 10-01-2023 14:14-0400 Body mass index (BMI) [Ratio] 32.19 kg/m2 Rhys Ezio COPYMAN - SCHEDULE ANALYST Work Phone: [facility] [employer] 10-01-2023 14:14-0400 Body weight 79.83 kg Rhys Ezio COPYMAN - SCHEDULE ANALYST Work Phone: [facility] [employer] 10-01-2023 14:14-0400 Diastolic blood pressure 70 mm[Hg] Rhys Ezio COPYMAN - SCHEDULE ANALYST Work Phone: [facility] 10-01-2023 14:14-0400 Heart rate 68 /min Rhys Ezio COPYMAN - SCHEDULE ANALYST Work Phone: [facility] 10-01-2023 14:14-0400 Systolic blood pressure 117 mm[Hg] Rhys Ezio COPYMAN - SCHEDULE ANALYST Work Phone: [facility] [employer] 09-16-2023 01:13-0400 Diastolic Blood Pressure Non-Invasive 93 mm[Hg] CRISTAL NANCE DO [facility] 09-16-2023 01:13-0400 Heart rate 59 /min CRISTAL NANCE DO [facility] 09-16-2023 01:13-0400 Respiratory rate 18 /min CRISTAL NANCE DO [facility] 09-16-2023 01:13-0400 Systolic Blood Pressure Non-Invasive 120 mm[Hg] CRISTAL NANCE DO [facility] 09-15-2023 23:45-0400 Blood Pressure Cuff Size CRISTAL NANCE DO [facility] 09-15-2023 23:45-0400 Blood Pressure Location CRISTAL NANCE DO [facility] 09-15-2023 23:45-0400 Blood Pressure Method CRISTAL NANCE DO [facility] 09-15-2023 23:45-0400 Diastolic Blood Pressure Non-Invasive 79 mm[Hg] CRISTAL NANCE DO [facility] 09-15-2023 23:45-0400 Heart rate 56 /min CRISTAL NANCE DO [facility] 09-15-2023 23:45-0400 Respiratory rate 20 /min CRISTAL NANCE DO [facility] 09-15-2023 23:45-0400 Systolic Blood Pressure Non-Invasive 132 mm[Hg] CRISTAL NANCE DO [facility] 09-15-2023 21:46-0400 Blood Pressure Cuff Size CRISTAL NANCE DO [facility] 09-15-2023 21:46-0400 Blood Pressure Location CRISTAL NANCE DO [facility] 09-15-2023 21:46-0400 Blood Pressure Method CRISTAL NANCE DO [facility] 09-15-2023 21:46-0400 Body height 157.5 cm CRISTAL NANCE DO [facility] 09-15-2023 21:46-0400 Body temperature 96.98 [degF] CRISTAL NANCE DO [facility] 09-15-2023 21:46-0400 Body weight 73.8 kg CRISTAL NANCE DO [facility] 09-15-2023 21:46-0400 Diastolic Blood Pressure Non-Invasive 82 mm[Hg] CRISTAL NANCE DO [facility] 09-15-2023 21:46-0400 Heart rate 60 /min CRISTAL NANCE DO [facility] 09-15-2023 21:46-0400 Reason For Taking VItal Signs CRISTAL NANCE DO [facility] 09-15-2023 21:46-0400 Respiratory rate 20 /min CRISTAL NANCE DO [facility] 09-15-2023 21:46-0400 Systolic Blood Pressure Non-Invasive 124 mm[Hg] CRISTAL NANCE DO [facility] 09-06-2023 21:13-0400 Diastolic Blood Pressure Non-Invasive 70 mm[Hg] DAVIDSON GÓMEZ MD [facility] 09-06-2023 21:13-0400 Heart rate 69 /min DAVIDSON GÓMEZ MD [facility] 09-06-2023 21:13-0400 Respiratory rate 16 /min DAVIDSON GÓMEZ MD [facility] 09-06-2023 21:13-0400 Systolic Blood Pressure Non-Invasive 114 mm[Hg] DAVIDSON GÓMEZ MD [facility] 09-06-2023 19:40-0400 Diastolic Blood Pressure Non-Invasive 64 mm[Hg] DAVIDSON GÓMEZ MD [facility] 09-06-2023 19:40-0400 Heart rate 62 /min DAVIDSON GÓMEZ MD [facility] 09-06-2023 19:40-0400 Reason For Taking VItal Signs DAVIDSON GÓMEZ MD [facility] 09-06-2023 19:40-0400 Respiratory rate 16 /min DAVIDSON GÓMEZ MD [facility] 09-06-2023 19:40-0400 Systolic Blood Pressure Non-Invasive 110 mm[Hg] DAVIDSON GÓMEZ MD [facility] 09-06-2023 18:19-0400 Body temperature 97.34 [degF] DAVIDSON GÓMEZ MD [facility] 09-06-2023 18:19-0400 Body weight 80.2 kg DAVIDSON GÓMEZ MD [facility] 09-06-2023 18:19-0400 Diastolic Blood Pressure Non-Invasive 81 mm[Hg] DAVIDSON GÓMEZ MD [facility] 09-06-2023 18:19-0400 Heart rate 85 /min DAVIDSON GÓMEZ MD [facility] 09-06-2023 18:19-0400 Respiratory rate 18 /min DAVIDSON GÓMEZ MD [facility] 09-06-2023 18:19-0400 Systolic Blood Pressure Non-Invasive 128 mm[Hg] DAVIDSON GÓMEZ MD [facility] 08-07-2023 07:11-0400 Body temperature 97.9 [degF] Mandy Calabrese MD Work Phone: [facility] 08-07-2023 07:11-0400 Diastolic blood pressure 61 mm[Hg] Mandy Calabrese MD Work Phone: [facility] 08-07-2023 07:11-0400 Heart rate 49 /min Mandy Calabrese MD Work Phone: [facility] 08-07-2023 07:11-0400 Respiratory rate 18 /min Mandy Calabrese MD Work Phone: [facility] [employer] 08-07-2023 07:11-0400 SaO2% (BldA) [Mass fraction] 93 % Mandy Calabrese MD Work Phone: [facility] [employer] 08-07-2023 07:11-0400 Systolic blood pressure 124 mm[Hg] Mandy Calabrese MD Work Phone: [facility] [employer] 08-07-2023 06:00-0400 Body mass index (BMI) [Ratio] 30.18 kg/m2 Mandy Calabrese MD Work Phone: [facility] [employer] 08-07-2023 06:00-0400 Body weight 74.85 kg Mandy Calabrese MD Work Phone: [facility] [employer] 08-05-2023 18:26-0400 Body height 157.5 cm Mandy Calabrese MD Work Phone: [facility] [employer] 05-27-2023 10:38-0400 Body height 152.4 cm Sadine Oredein COPYMAN - SCHEDULE ANALYST Work Phone: [facility] [employer] 05-27-2023 10:38-0400 Body mass index (BMI) [Ratio] 34.26 kg/m2 Sadine Oredein COPYMAN - SCHEDULE ANALYST Work Phone: [facility] [employer] 05-27-2023 10:38-0400 Body weight 79.56 kg Sadine Oredein COPYMAN - SCHEDULE ANALYST Work Phone: [facility] [employer] 05-27-2023 10:38-0400 Diastolic blood pressure 70 mm[Hg] Sadine Oredein COPYMAN - SCHEDULE ANALYST Work Phone: [facility] [employer] 05-27-2023 10:38-0400 Heart rate 61 /min Sadine Oredein COPYMAN - SCHEDULE ANALYST Work Phone: [facility] [employer] 05-27-2023 10:38-0400 Respiratory rate 18 /min Sadine Oredein COPYMAN - SCHEDULE ANALYST Work Phone: [facility] [employer] 05-27-2023 10:38-0400 SaO2% (BldA) [Mass fraction] 97 % Marry Cooley COPYMAN - SCHEDULE ANALYST Work Phone: [facility] [employer] 05-27-2023 10:38-0400 Systolic blood pressure 114 mm[Hg] Marry Cooley COPYMAN - SCHEDULE ANALYST Work Phone: [facility] 05-19-2023 11:08-0400 Body temperature 97.3 [degF] Raz eD La Torre MD Work Phone: [facility] [employer] 05-19-2023 11:08-0400 Diastolic blood pressure 68 mm[Hg] Raz De La Torre MD Work Phone: [facility] [employer] 05-19-2023 11:08-0400 Heart rate 61 /min Raz De La Torre MD Work Phone: [facility] [employer] 05-19-2023 11:08-0400 Respiratory rate 16 /min Raz De La Torre MD Work Phone: [facility] [employer] 05-19-2023 11:08-0400 SaO2% (BldA) [Mass fraction] 94 % Raz De La Torre MD Work Phone: [facility] [employer] 05-19-2023 11:08-0400 Systolic blood pressure 125 mm[Hg] Raz De La Torre MD Work Phone: [facility] 05-18-2023 10:40-0400 Body height 152.4 cm Raz De La Torre MD Work Phone: [facility] [employer] 05-18-2023 10:40-0400 Body mass index (BMI) [Ratio] 33.2 kg/m2 Raz De La Torre MD Work Phone: [facility] [employer] 05-18-2023 10:40-0400 Body weight 77.11 kg Raz De La Torre MD Work Phone: [facility] [employer] 04-02-2023 22:30-0500 Diastolic blood pressure 60 mm[Hg] DR KURT BARROSO MD [facility] 04-02-2023 22:30-0500 Heart rate 68 /min DR KURT BARROSO MD [facility] 04-02-2023 22:30-0500 Respiratory rate 16 /min DR KURT BARROSO MD [facility] 04-02-2023 22:30-0500 Systolic blood pressure 137 mm[Hg] DR KURT BARROSO MD [facility] 04-02-2023 19:52-0500 Body temperature 97.88 [degF] DR KURT BARROSO MD [facility] 04-02-2023 19:52-0500 Diastolic Blood Pressure Non-Invasive 81 mm[Hg] DR KURT BARROSO MD [facility] 04-02-2023 19:52-0500 Heart rate 76 /min DR KURT BARROSO MD [facility] 04-02-2023 19:52-0500 Respiratory rate 16 /min DR KURT BARROSO MD [facility] 04-02-2023 19:52-0500 Systolic Blood Pressure Non-Invasive 120 mm[Hg] DR KURT BARROSO MD [facility] 07-24-2021 13:54-0400 Body temperature 98.06 [degF] JOHN BOYER DO [facility] 07-24-2021 13:54-0400 Body weight 76 kg JOHN BOYER DO [facility] 07-24-2021 13:54-0400 Diastolic blood pressure 85 mm[Hg] JOHN BOYER DO [facility] 07-24-2021 13:54-0400 Heart rate 71 /min JOHN BOYER DO [facility] 07-24-2021 13:54-0400 Mean blood pressure 100 mm[Hg] JOHN BOYER DO [facility] 07-24-2021 13:54-0400 Respiratory rate 16 /min JOHN BOYER DO [facility] 07-24-2021 13:54-0400 Systolic blood pressure 130 mm[Hg] JOHN BOYER DO [facility] 11-04-2019 14:23-0400 Body Temperature 97.11 [degF] [facility] [employer] , [place] 11-04-2019 14:23-0400 BP Diastolic 62 mm[Hg] [place] [facility] [place] 11-04-2019 14:23-0400 BP Systolic 104 mm[Hg] [place] [facility] [place] 11-04-2019 14:23-0400 Pulse (Heart Rate) 52 /min [place] [facility] [place] 11-04-2019 14:23-0400 Pulse Oximetry 93 % [place] [facility] [place] 11-04-2019 14:23-0400 Respiratory Rate 16 /min Paul [employer] [facility], [place] 11-03-2019 09:24-0400 BMI (Body Mass Index) 29.08 kg/m2 [facility] [place] 11-03-2019 09:24-0400 Body weight 72.12 kg [facility] [place] 11-03-2019 09:24-0400 Height 157.5 cm [place] [facility] [place] 10-27-2019 10:09-0400 BMI (Body Mass Index) 29.12 kg/m2 Paul Mckeon [employer] [facility], [place] 10-27-2019 10:09-0400 Body Temperature 97.9 [degF] Paul L[facility], [place] 10-27-2019 10:09-0400 Body weight 72.21 kg Paul Mckeon [employer] [facility] , [place] 10-27-2019 10:09-0400 BP Diastolic 73 mm[Hg] Paul [facility] [facility] , [place] 10-27-2019 10:09-0400 BP Systolic 110 mm[Hg] [facility] [place] 10-27-2019 10:09-0400 Height 157.5 cm Paul DonaldsonEure[facility] , [place] 10-27-2019 10:09-0400 Pulse (Heart Rate) 57 /min [facility] [place] 10-27-2019 10:09-0400 Pulse Oximetry 95 % Paul DonaldsonLeMond [place] NEGATED: Highlighted [id number] 11:25-0400 BMI (Body Mass Index) 29 kg/m2 Talia Ureña RN [facility] Work Phone: NEGATED: Highlighted [id number] 11:25-0400 Body weight 71.67 kg Talia Ureña RN [facility] Work Phone: NEGATED: Highlighted [id number] 11:25-0400 Body weight 72 kg Talia Ureña RN [facility] Work Phone: NEGATED: Highlighted [id number] 11:25-0400 Height 157.48 cm Talia Ureña RN [facility] Work Phone: NEGATED: Highlighted [id number] 11:25-0400 Height 157 cm Talia Ureña RN [facility] Work Phone: Encounters Encounter Date Encounter Type Care Provider Facility Start: 10-11-2024 Evaluation and management of inpatient Dr. Ramu Cornelius DO -[facility] Work Phone: Start: 08-17-2024 End: 08-17-2024 Emergency department patient visit Dr. Kvng Pelaez MD Work Phone: -Emergency Department Work Phone: Start: 08-03-2024 End: 08-03-2024 ambulatory EMMA HALEIGHKO DO Facility:A Start: 08-03-2024 End: 08-03-2024 Patient encounter procedure PIPPA WHITTEN MD [facility] Start: 07-27-2024 End: 07-27-2024 ambulatory EMMA HALEIGHKO DO [facility] Start: 07-27-2024 End: 07-27-2024 Patient encounter procedure EMMA HALKO DO [facility] Start: 07-11-2024 End: 07-15-2024 ambulatory EMMA HALKO DO [facility] Start: 06-13-2024 End: 06-13-2024 Emergency department patient visit EMMA RICARDOKO DO Facility[facility] Start: 06-07-2024 ambulatory EMMA HALKO DO Facili ty:[facility] Start: 06-05-2024 End: 06-05-2024 Emergency department patient visit Dr. Knvg Pelaez MD Work Phone: -Emergency Department Work Phone: Start: 05-30-2024 End: 05-30-2024 ambulatory EMMA HALEIGHKO DO Facility[facility] Start: 05-20-2024 End: 05-20-2024 Emergency department patient visit Dr. Kvng Pelaez MD Work Phone: -Emergency Department Work Phone: Start: 05-06-2024 ambulatory EMMA HALEIGHKO DO Facili ty:[facility] Start: 03-23-2024 End: 03-23-2024 ambulatory EMMA HALKO DO Facility:[facility] Start: 03-23-2024 End: 03-23-2024 Patient encounter procedure EMMA HALEIGHKO DO [facility] Start: 01-20-2024 End: 01-20-2024 ambulatory EMMA HARMON DO Facility:[facility] Start: 01-20-2024 End: 01-20-2024 Minor Procedure MARIANA Erwin BROOKS DO [facility] Start: 11-30-2023 End: 11-30-2023 Emergency department patient visit DR KURT BARROSO MD [facility] Start: 11-19-2023 ambulatory EMMA HARMON Facili ty:[facility] Start: 10-30-2023 End: 11-01-2023 Evaluation and management of inpatient Raf Ace MD PhD Work Phone: [facility] Epilepsy Monitoring Unit 3N Comment on above: Convulsion (HCC) (Pr imary Dx) Start: 10-29-2023 End: 10-29-2023 Telephone encounter Pattie Maravilla [facility] Comment on above: Other (EMU reminder call) Start: 10-01-2023 End: 10-01-2023 Office outpatient new 45 minutes Rhys Mcnulty COPYMAN - SCHEDULE ANALYST Work Phone: [facility] Comment on above: Seizure-like activit y (HCC) (Primary Dx); Psychogenic nonepileptic seizure Start: 10-01-2023 End: 10-01-2023 ambulatory [facility] Start: 09-15-2023 End: 09-16-2023 Emergency department patient visit CRISTAL NANCE DO [facility] Start: 09-06-2023 End: 09-06-2023 Emergency department patient visit DAVIDSON GÓMEZ MD [facility] Start: 09-04-2023 ambulatory EMMA HARMON Facility: B Start: 08-06-2023 Telephone encounter Chantel Garcia COPYMAN - SCHEDULE ANALYST Work Phone: [facility] Start: 08-06-2023 End: 08-06-2023 ambulatory EMMA HARMON [facility] Start: 08-05-2023 End: 08-07-2023 ambulatory JAYLYN STALEY [facility] Start: 08-05-2023 End: 08-07-2023 Emergency department patient visit Mandy Calabrese MD Work Phone: [facility] Epilepsy Monitoring Unit 3N Comment on above: Seizure-like activit y (HCC) (Primary Dx) Start: 07-09-2023 End: 07-09-2023 ambulatory SONJA SALDAÑA DO Facility:B Start: 07-09-2023 End: 07-09-2023 Patient encounter procedure EMMA HARMON DO [facility] Start: 07-02-2023 End: 07-06-2023 ambulatory TARA Sudheer ANNE COPYMAN-SCHEDULE ANALYST Facility:B Start: 07-02-2023 End: 07-06-2023 Outreach Lab TARA Willard ANNE COPYMAN-SCHEDULE ANALYST [facility] Start: 06-26-2023 ambulatory EMMA HARMON Facility: A Start: 06-17-2023 End: 06-17-2023 ambulatory EMMA HARMON Facility:B Start: 06-17-2023 End: 06-17-2023 Patient encounter procedure EMMA HARMON DO [facility] Start: 06-12-2023 End: 06-12-2023 Subsequent hospital visit by physician Marry Cooley COPYMAN - SCHEDULE ANALYST Work Phone: [facility] [address] Non-Invasive Cardiology Comment on above: Syncope and collapse Start: 06-12-2023 End: 06-12-2023 ambulatory EMMA HARMON [facility] Start: 06-09-2023 ambulatory EMMA HARMON Facility: B Start: 06-09-2023 Telephone encounter Marry myers COPYMAN - SCHEDULE ANALYST Work Phone: [facility] Cardiology Comment on above: Reschedule Start: 06-03-2023 ambulatory EMMA HARMON Facility: B Start: 05-27-2023 End: 05-27-2023 Office outpatient visit 25 minutes Marry Cooley COPYMAN - SCHEDULE ANALYST Work Phone: [facility] Cardiology Comment on above: Syncope and collapse (Primary Dx); Tingling of face; Essential hypertension Start: 05-27-2023 End: 05-27-2023 ambulatory MARRY COOLEY [facility] Start: 05-19-2023 Telephone encounter Mary Cramer COPYMAN - SCHEDULE ANALYST Work Phone: [facility] Cardiology Comment on above: Appointment Start: 05-16-2023 End: 05-19-2023 ambulatory AAKASH GRANADO [facility] Start: 05-16-2023 End: 05-19-2023 Emergency department patient visit Raz De La Torre MD Work Phone: [facility] Cardiac Vascular Progressive Care Unit PCC 1C Comment on above: Unresponsive episode (Primary Dx) Start: 04-02-2023 End: 04-02-2023 Emergency department patient visit DR KURT BARROSO MD [facility] Start: 03-30-2023 ambulatory EMMA HARMON Facility: B Start: 03-11-2023 End: 03-15-2023 ambulatory EMMA HARMON Facility:B Start: 09-26-2021 End: 09-26-2021 Patient encounter procedure RUFINA BOYER MD [facility] Start: 09-11-2021 End: 09-15-2021 Outreach Lab SONJA SALDAÑA DO [facility] Start: 07-24-2021 End: 07-24-2021 Emergency department patient visit JOHN BOYER DO [facility] Start: 05-10-2021 End: 05-10-2021 Patient encounter procedure EMMA HARMON DO [facility] Start: 03-08-2021 End: 03-08-2021 Patient encounter procedure EMMA HARMON DO [facility] Start: 02-12-2021 End: 02-12-2021 Patient encounter procedure EMMA HARMON DO [facility] Start: 01-08-2021 End: 01-08-2021 Patient encounter procedure EMILY Willard SALLY COPYMAN-SCHEDULE ANALYST [facility] Start: 12-12-2020 End: 12-12-2020 Patient encounter procedure EMMA HARMON DO [facility] Start: 12-12-2020 End: 03-06-2021 Physical therapy management EMMA HARMON DO [facility] Start: 11-09-2019 End: 11-09-2019 Patient encounter procedure Paul Mckeon MD Work Phone: [facility] Work Phone: Start: 11-03-2019 End: 11-04-2019 Subsequent hospital visit by physician Paul Mckeon Work Phone: [facility] Comment on above: Localized adiposity (Primary Dx) Start: 10-27-2019 End: 10-27-2019 Subsequent hospital visit by physician Paul Mckeon Work Phone: [facility] Pre-Admit Testing Comment on above: Arrived Start: 08-17-2019 End: 08-17-2019 Subsequent hospital visit by physician Geneva Levin Work Phone: [facility] Start: 08-16-2019 End: 08-16-2019 Subsequent hospital visit by physician Truong Gomez Work Phone: [facility] [address] Laboratory Comment on above: Low iron; Deficiency of multiple nutrient elements; Intestinal malabsorption, unspecified type; Gastroesophageal reflux disease without esophagitis; Essential hypertension Start: 04-14-2019 End: 04-14-2019 Subsequent hospital visit by physician Truong Gomez Work Phone: [facility] Start: 04-13-2019 End: 04-13-2019 Subsequent hospital visit by physician Macy Jorge Work Phone: [facility] [address] Laboratory Comment on above: Intestinal malabsorp tion, unspecified type; Deficiency of multiple nutrient elements; Gastroesophageal reflux disease without esophagitis; Low iron; Morbid obesity (HCC); Essential hypertension; Body mass index 30.0-30.9, adult Procedures Date Procedure Procedure Detail Performing Clinician Start: 10-11-2024 X-ray of chest, PA a nd lateral views Dr. Emma Harmon DO Work Phone: Start: 10-11-2024 Urnls dip stick/tabl et reagent auto microscopy Dr. Emma Harmon DO Work Phone: Start: 10-11-2024 Computed tomography of abdomen and pelvis with intravenous contrast Dr. Emma Harmon DO Work Phone: Start: 10-11-2024 CT of head without contrast Dr. Emma Harmon DO Work Phone: Start: 10-11-[address] Emma Harmon DO Work Phone: Start: 08-17-2024 Urnls dip stick/tabl et reagent auto microscopy Dr. Kvng Pelaez MD Work Phone: Start: 08-17-[address] Kvng Pelaez MD Work Phone: Start: 06-05-2024 Urnls dip stick/tabl et reagent auto microscopy Dr. Kvng Pelaez MD Work Phone: Start: 06-05-2024 Computed tomography of abdomen and pelvis with intravenous contrast Dr. Kvng Pelaez MD Work Phone: Start: 06-05-[address] Kvng Pelaez MD Work Phone: Start: 05-20-2024 Plain X-ray abdomen Dr. Kvng Pelaez MD Work Phone: Start: 05-20-[address] Kvng Pelaez MD Work Phone: Start: 11-01-2023 End: 11-01-2023 Glucose quantitative blood xcpt reagent strip Sveta Monterroso MD Work Phone: Start: 10-31-2023 Glucose quantitative blood xcpt reagent strip Sveta Monterroso MD Work Phone: Start: 10-31-2023 Glucose quantitative blood xcpt reagent strip Sveta Monterroso MD Work Phone: Start: 10-31-2023 Glucose quantitative blood xcpt reagent strip Sveta Monterroso MD Work Phone: Start: 10-31-2023 Glucose quantitative blood xcpt reagent strip Sveta Monterroso MD Work Phone: Start: 10-30-2023 End: 10-30-2023 Hemoglobin glycosylated a1c Abdulaziz gordillo MD Work Phone: Start: 10-30-2023 Glucose quantitative blood xcpt reagent strip Raf Ace MD PhD Work Phone: Start: 10-30-2023 Comprehensive metabolic panel Abdulaziz Hensley MD Work Phone: Start: 10-30-2023 Glucose quantitative blood xcpt reagent strip Raf Ace MD PhD Work Phone: Start: 08-07-2023 Iadna-dna/rna gi pth gn multiplex probe tq 12- Yany Kang MD Work Phone: Start: 08-07-2023 Basic metabolic pane l calcium total Tito Truong Russell DO Work Phone: Start: 08-06-2023 Sedimentation rate r bc automated Emma Oglesby MD Work Phone: Start: 08-06-2023 Electroencephalogram w/rec awake&asleep Yany Kang MD Work Phone: Start: 08-06-2023 Comprehensive metabolic panel Yany Kang MD Work Phone: Start: 08-06-2023 Mri brain brain stem w/o contrast material Yany Kang MD Work Phone: Start: 08-06-2023 Thyrotropin [Units/v olume] in Serum or Plasma Crystal Meranto COPYMAN - SCHEDULE ANALYST Work Phone: Start: 08-05-2023 Glucose quantitative blood xcpt reagent strip Yany Kang MD Work Phone: Start: 08-05-2023 Assay of lactate Yany aKng MD Work Phone: Start: 08-05-2023 Culture bacterial qu anttative colony count urine Lucy Bartlett DO Work Phone: Start: 08-05-2023 Drug tst prsmv instr mnt chem analyzers pr date Yany Kang MD Work Phone: Start: 08-05-2023 Urinalysis complete panel - Urine Lucy Bartlett DO Work Phone: Start: 08-05-2023 Ct abdomen & pelvis w/contrast material Lucy Bartlett Work Phone: Start: 08-05-2023 Ct head/brain w/o co ntrast material Lucy Bartlett DO Work Phone: Start: 08-05-2023 C-reactive protein Echo Kang MD Work Phone: Start: 08-05-2023 End: 08-05-2023 Comprehensive metabolic panel Lucy linn DO Work Phone: Start: 08-05-2023 Ecg routine ecg w/le ast 12 lds trcg only w/o i&r Lucy Bartlett Work Phone: Start: 05-19-2023 Cta hrt cornry art/b ypass grfts contrst 3d post Otfried N Genoveva NORWOOD Work Phone: Start: 05-18-2023 Assay of troponin quantitative Rigoberto Elliott MD Work Phone: Start: 05-18-2023 Assay of troponin quantitative Rigoberto Elliott MD Work Phone: Start: 05-18-2023 Echo tthrc r-t 2d w/ wom-mode compl spec&colr d Bette Wilkes MD Work Phone: Start: 05-18-2023 Ecg routine ecg w/le ast 12 lds trcg only w/o i&r Rigoberto Elliott MD Work Phone: Start: 05-17-2023 Basic metabolic pane l calcium total Bette Wilkes MD Work Phone: Start: 05-17-2023 Assay of troponin quantitative Raz De La Torre MD Work Phone: Start: 05-16-2023 Ct head/brain w/o co ntrast material Melyssa Salinas DO Work Phone: Start: 05-16-2023 Ecg routine ecg w/le ast 12 lds i&r only Raz De La Torre MD Work Phone: Start: 05-16-2023 End: 05-16-2023 Basic metabolic panel calcium total Raz De La Torre MD Work Phone: Start: 05-16-2023 Drug test def 1-7 classes Raz De La Torre MD Work Phone: Start: 05-16-2023 Thyrotropin [Units/v olume] in Serum or Plasma Raz De La Torre MD Work Phone: Start: 11-09-2019 End: 11-09-2019 Blood pressure screening not performed - reason not given Paul Mckeon MD Work Phone: Start: 11-09-2019 End: 11-09-2019 BMI documented as above normal parameters - follow-up documented Paul Mckeon MD Work Phone: Start: 11-09-2019 End: 11-09-2019 Documentation of current medications Paul Mckeon MD Work Phone: Start: 11-09-2019 End: 11-09-2019 Pain assessment documented as negative - follow-up not required Paul Mckeon MD Work Phone: Start: 11-09-2019 End: 11-09-2019 Tobacco non-user Paul Mckeon MD Work Phone: Start: 11-03-2019 OPERATIVE REPORT 3m Sca nning Start: 10-27-2019 Ecg routine ecg w/le ast 12 lds w/i&r Katie L Belle Work Phone: Start: 08-16-2019 25 hydroxy includes fractions if performed Truong Reinaldo Gomez Work Phone: Start: 08-16-2019 Assay of ferritin Truong Gomez Work Phone: Start: 08-16-2019 Assay of folic acid serum Truong Najera Patricia Work Phone: Start: 08-16-2019 Assay of iron Truong Najera Mariama dawson Work Phone: Start: 08-16-2019 Assay of magnesium Truong Najera Patricia Work Phone: Start: 08-16-2019 Blood count complete automated Truong Najera Patricia Work Phone: Start: 08-16-2019 Comprehensive metabolic panel Truong Gomez Work Phone: Start: 08-16-2019 Cyanocobalamin vitamin b-12 Truong Najera Patricia Work Phone: Start: 08-16-2019 Lipid panel Truong Najera Robin kim Work Phone: Start: 08-16-2019 Lipid 1996 panel - S rodrigo or Plasma Raz De La Torre MD Work Phone: Start: 04-13-2019 Assay of ferritin Macy Alejandrina Jorge Work Phone: Start: 04-13-2019 Assay of folic acid serum Macy R Bridle Work Phone: Start: 04-13-2019 Assay of iron Macy R B ridle Work Phone: Start: 04-13-2019 Assay of magnesium Leis a R Bridle Work Phone: Start: 04-13-2019 Blood count complete automated Macy R Bridle Work Phone: Start: 04-13-2019 Comprehensive metabolic panel Macy R Bridle Work Phone: Start: 04-13-2019 Cyanocobalamin vitamin b-12 Macy R Bridle Work Phone: Start: 04-13-2019 Lipid panel Macy R Br idle Work Phone: Start: 02-12-2018 Bypass of stomach JUANCARLOS CLOVIS HALEIGHJORGE DO Back structure, excl uding neck (body structure) EMMA HARMON DO Comment on above: 3 surgeries Cholecystectomy EMMA Merritt DO Colon structure (bod y structure) EMMA HALEIGHJORGE DO Comment on above: 6 inches removed due to infection Colonoscopy MARIANA BROOKS DO H/O: hysterectomy S/P hysterecto my( Confirmed ) JOHN BOYER DO Hernia of abdominal cavity (disorder) EMMA HARMON DO Comment on above: repair x3 Hysterectomy EMMA Merritt Comment on above: total Neck structure (body structure) EMMA HALEIGHJORGE DO NEGATED: Highlighted rowStart: 11-09-2019 End: 11-09-2019 Documentation of current medications Talia Ureña RN Plan of Treatment Date Care Activity Detail Author Start: 02-07-2032 DTaP/Tdap/Td Vaccines (2 - Td or Tdap) DTaP/Tdap/Td Vaccines (2 - Td or Tdap) [facility] [employer] Start: 2025 RSV Immunization aged 60 or older (1 - 1-dose 60+ series) RSV Immunization aged 60 or older (1 - 1-dose 60+ series) [facility] Start: 10-29-2024 Diabetes: Estimated Glomerular Filtration Rate for Kidney Health Diabetes: Estimated Glomerular Filtration Rate for Kidney Health [facility] Start: 10-29-2024 Hemoglobin A1c measurement Diabetes: Hemoglobin A1C [facility] Start: 10-11-2024 T4 free measurement [facility] Start: 10-11-2024 Triiodothyronine, free measurement [facility] Start: 10-11-2024 Verification routine [facility] Start: 10-11-2024 Admission procedure [facility] Start: 10-11-2024 Hospital admission, emergency, from emergency room, medical nature [facility] Start: 10-11-2024 [facility] Start: 10-11-2024 End: 10-11-2024 [facility] Start: 08-17-2024 [facility] Start: 08-17-2024 [facility] Start: 08-17-2024 [facility] Start: 08-06-2024 Diabetes: Estimated Glomerular Filtration Rate for Kidney Health Diabetes: Estimated Glomerular Filtration Rate for Kidney Health [facility] Start: 08-05-2024 Diabetes: Estimated Glomerular Filtration Rate for Kidney Health Diabetes: Estimated Glomerular Filtration Rate for Kidney Health [facility] Start: 08-05-2024 Thyroid stimulating hormone measurement TSH Level [facility] Start: 08-04-2024 Hemoglobin A1c measurement Diabetes: Hemoglobin A1C [facility] Start: 06-05-2024 [facility] Start: 05-15-2024 Thyroid stimulating hormone measurement TSH Level [facility] Start: 12-03-2023 End: 12-03-2023 Patient encounter procedure 12/03/2023 1:00 PM EDT Office Visit [facility] [address] [place] [address] Rhys Mcnulty, COPYMAN - SCHEDULE ANALYST [address] [place], [place] [id number] [facility] Start: 11-01-2023 COVID-19 Vaccine () COVID-19 Vaccine () [facility] Start: 11-01-2023 Influenza vaccination Influenza Vaccine (#1) [facility] Start: 10-01-2023 End: 09-30-2024 EEG GROUP HOME MONITORING 2 - 3 DAY EVAL EEG GROUP HOME MONITORING 2 - 3 DAY EVAL Neurology Routine Seizure-like activity (HCC) Psychogenic nonepileptic seizure Expected: 10/01/2023 (Approximate), Expires: 09/30/2024 [facility] Work Phone: Comment on above: Expected: 10/01/2023 (Approximate), Expi res: 09/30/2024 Start: 09-11-2023 End: 09-11-2023 Patient encounter procedure 09/11/2023 10:30 AM EDT Office Visit [facility] [address] [place] [phone] Rhys Mcnulty COPYMAN - SCHEDULE ANALYST [address] [place], [place] [phone] [facility] Start: 07-28-2023 End: 07-28-2023 Patient encounter procedure 07/28/2023 10:00 AM EDT Office Visit [facility] Cardiology [address] [place] [phone] Be Tomas MD [address] [place] [address] [facility] Start: 06-26-2023 Zoster Vaccines (2 of 2) Zoster Vaccines (2 of 2) [facility] Start: 06-09-2023 End: 06-09-2023 Patient encounter procedure 06/09/2023 8:00 AM EDT Appointment [facility] [address] [place] [phone] Marry Cooley, COPYMAN - SCHEDULE ANALYST [address] [place] [address] [facility] [address] [facility] Start: 05-27-2023 End: 05-26-2025 Cardiac event monitor (30 days) Cardiac event monitor (30 days) [facility] Routine Syncope and collapse Expected: 05/27/2023, Expires: 05/26/2025 [facility] Work Phone: Comment on above: Expected: 05/27/2023, Expires: Start: 05-27-2023 End: 05-26-2024 Magnesium [Mass/volume] in Serum or Plasma Magnesium Lab Routine Syncope and collapse Tingling of face Expected: 05/27/2023 (Approximate), Expires: 05/26/2024 [facility] Comment on above: Expected: 05/27/2023 (Approximate), Expi res: 05/26/2024 Start: 05-27-2023 End: 05-27-2023 Patient encounter procedure 05/27/2023 10:30 AM EDT Office Visit [facility] [address] [place] [phone] Marry Cooley, COPYMAN - SCHEDULE ANALYST [address] [place] [address] [facility] Start: 03-02-2023 Medicare Advantage Annual Wellness Visit Medicare Advantage Annual Wellness Visit [facility] Start: 10-31-2022 COVID-19 Vaccine ( season) COVID-19 Vaccine ( season) [facility] Start: 08-15-2020 Creatinine measurement Creatinine monitoring [facility] [place] Start: 08-15-2020 Lipid panel [facility] Start: 08-15-2020 Potassium monitoring Potassium monitoring [facility] [place] Start: 04-13-2020 Creatinine measurement Creatinine monitoring [facility] Start: 04-13-2020 Creatinine monitoring [facility] Work [facility]: Start: 04-13-2020 Lipid panel Lipid screen [facility] [place] Start: 04-13-2020 Lipid screen Lipid screen [facility] Work Phone: Start: 04-13-2020 Potassium monitoring Potassium monitoring [facility] Work Phone: Start: 12-26-2019 A1C test (Diabetic or Prediabetic) A1C test (Diabetic or Prediabetic) [facility] Work Phone: Start: 12-26-2019 HbA1c (Bld) [Mass fraction] A1C test (Diabetic or Prediabetic) [place], [place] Start: 12-26-2019 TSH Qn TSH testing [place] Start: 12-26-2019 TSH testing TSH testing [facility] Work Phone: Start: 12-14-2019 End: 12-14-2019 Appointment Appointment [facility] Work Phone: Start: 11-09-2019 End: 11-09-2019 Appointment Appointment [facility] Work Phone: Start: 11-03-2019 End: 11-03-2019 Appointment 11/03/2019 Appointment General Surgery Paul Mckeon III, MD [address] [place], [place] [address] [facility] Start: 11-01-2019 Annual Wellness Visit (AWV) Annual Wellness Visit (AWV) [place] Start: 11-01-2019 Influenza vaccination Flu vaccine (#1) [place] Start: 08-17-2019 End: 08-17-2019 Office Visit 08/17/2019 Office Visit Geneva Domingo MD [address] [facility] [address] [place], [place] [phone] [facility] Start: 04-27-2019 Breast cancer screen Breast cancer screen [facility] Work Phone: Start: 04-27-2019 Screening for malignant neoplasm of breast Breast cancer screen [place], [place] Start: 04-14-2019 End: 04-14-2019 Office Visit 04/14/2019 Office Visit Truong Joe MD [address] [facility] [place] [address] [facility] Start: 02-08-2019 Diabetic microalbuminuria test Diabetic microalbuminuria test [facility] Work Phone: Start: 10-31-2018 Influenza vaccination Flu vaccine (#1) [facility] Work Phone: Start: 08-22-2018 Annual Wellness Visit (AWV) Annual Wellness Visit (AWV) [facility] Work Phone: Start: 02-16-2018 [object Object] Diabetic foot exam [facility] Work Phone: Start: 02-16-2018 Diabetic foot examination Diabetic foot exam [place] Start: 10-24-2016 Diabetic retinal exam Diabetic retinal exam [facility] Work Phone: Start: 2015 Colon cancer screen colonoscopy Colon cancer screen colonoscopy [facility] Work Phone: Start: 2015 Screening for malignant neoplasm of colon Colon cancer screen colonoscopy [place] Start: 2015 Shingles Vaccine (1 of 2) Shingles Vaccine (1 of 2) [facility] Work Phone: Start: 2005 Screening for malignant neoplasm of breast Mammogram [facility] Start: 1995 Screening for malignant neoplasm of cervix [facility] Start: 1986 Cervical cancer screen Cervical cancer screen [facility] Work Phone: Start: 1986 Screening for malignant neoplasm of cervix [facility] Start: 1984 DTaP/Tdap/Td vaccine (1 - Tdap) DTaP/Tdap/Td vaccine (1 - Tdap) [place] Start: 1984 Hepatitis A Vaccines (1 of 2 - Risk 2-dose series) Hepatitis A Vaccines (1 of 2 - Risk 2-dose series) [facility] Start: 1984 Hepatitis B vaccine (1 of 3 - Risk 3-dose series) Hepatitis B vaccine (1 of 3 - Risk 3-dose series) [facility] Work Phone: Start: 1984 Hepatitis B Vaccines (1 of 3 - 19+ 3-dose series) Hepatitis B Vaccines (1 of 3 - 19+ 3-dose series) [facility] Start: 1983 Diabetes: Urine Albumin-Creatinine Ratio for Kidney Health Diabetes: Urine Albumin-Creatinine Ratio for Kidney Health [facility] Start: 1983 Hepatitis C screening Hepatitis C Screening [facility] Start: 1980 HIV screen [facility] screen [facility] Work Phone: Start: 1980 HIV screening HIV screen [place] Start: 1977 Depression Screening Depression Screening [facility] Start: 1976 DTaP/Tdap/Td vaccine (1 - Tdap) DTaP/Tdap/Td vaccine (1 - Tdap) [facility] Work Phone: Start: 1975 Diabetic foot examination Diabetes: Foot Exam [facility] Start: 1975 Glaucoma screening Diabetes: Retinopathy Screening [facility] Start: 1975 Preventive dental service Diabetes: Dental Exam [facility] Start: 1971 Pneumococcal 0-64 years Vaccine (1 of 1 - PPSV23) Pneumococcal 0-64 years Vaccine (1 of 1 - PPSV23) [facility] Work Phone: Start: 1966 MMR Vaccines (1 of 1 - Standard series) MMR Vaccines (1 of 1 - Standard series) [facility] Start: 1965 Hemoglobin A1c measurement Diabetes: Hemoglobin A1C [facility] Start: 1965 HIV screening HIV Screening [facility] End: 06-12-2023 Cardiac event monitor (30 days) [facility] Comment on above: Once for 1 Occurrences starting 06/12/19 24 until 06/12/2023 EKG 12 Lead EKG 12 Lead ECG Routine 10/27/2019 10:45 AM EDT [place] Magnesium measurement [facility] Natriuretic peptide. B prohormone N-Terminal [Mass/volume] in Serum or Plasma [facility] Oxygen therapy [[facility] Data Set] Initiate Oxygen Therapy Protocol Respiratory Care Routine Daily until discontinued starting 11/03/2019 [place] Comment on above: Daily until discontinued starting 2019 Patient Education [facility] Work Phone: Patient referral [facility] Work Phone: Troponin T.cardiac [Mass/volume] in Serum or Plasma by High sensitivity method [facility] End: 04-13-2019 Vitamin B1, Whole Blood Vitamin B1, Whole Blood Lab Routine Intestinal malabsorption, unspecified type Deficiency of multiple nutrient elements Gastroesophageal reflux disease without esophagitis Low iron Morbid obesity (HCC) Essential hypertension Body mass index 30.0-30.9, adult 1 Occurrences starting 04/13/2019 until 04/13/2019 [facility] Work Phone: Comment on above: 1 Occurrences starting 04/13/2019 until 04/13/2019 Vitamin B1, Whole Blood Vitamin B1, Whole Blood Lab Routine Intestinal malabsorption, unspecified type Deficiency of multiple nutrient elements Gastroesophageal reflux disease without esophagitis Low iron Morbid obesity (HCC) Essential hypertension Body mass index 30.0-30.9, adult 04/13/2019 10:55 AM EST [facility] Work Phone: End: 08-06-2023 Vitamin B1, whole blood [facility] Work Phone: Comment on above: Once (Lab) for 1 Occurrences starting until 08/06/2023 End: 04-13-2019 Vitamin D 25 Hydroxy Vitamin D 25 Hydroxy Lab Routine Intestinal malabsorption, unspecified type Deficiency of multiple nutrient elements Gastroesophageal reflux disease without esophagitis Low iron Morbid obesity (HCC) Essential hypertension Body mass index 30.0-30.9, adult 1 Occurrences starting 04/13/2019 until 04/13/2019 [facility] Work Phone: Comment on above: 1 Occurrences starting 04/13/2019 until 04/13/2019 Vitamin D 25 Hydroxy Vitamin D 2 5 Hydroxy Lab Routine Intestinal malabsorption, unspecified type Deficiency of multiple nutrient elements Gastroesophageal reflux disease without esophagitis Low iron Morbid obesity (HCC) Essential hypertension Body mass index 30.0-30.9, adult 04/13/2019 10:55 AM EST [facility] Work Phone: End: 04-13-2019 Zinc Zinc Lab Routine Intestinal malabsorption, unspecified type Deficiency of multiple nutrient elements Gastroesophageal reflux disease without esophagitis Low iron Morbid obesity (HCC) Essential hypertension Body mass index 30.0-30.9, adult 1 Occurrences starting 04/13/2019 until 04/13/2019 [facility] Work Phone: Comment on above: 1 Occurrences starting 04/13/2019 until 04/13/2019 Zinc [facility] Work Phone: End: 08-16-2019 Zinc Zinc Lab Routine Low iron Deficiency of multiple nutrient elements Intestinal malabsorption, unspecified type Gastroesophageal reflux disease without esophagitis Essential hypertension 1 Occurrences starting 08/16/2019 until 08/16/2019 [facility] [place] Comment on above: 1 Occurrences starting 08/16/2019 until 08/16/2019 Immunizations Immunization Date Immunization Notes Care Provider Bessy hopper 05-01-2023 zoster vaccine recombinant MARIANA BROOKS DO [facility] 03-11-2023 influenza, injectabl e, quadrivalent, contains preservative; Translations: [Fluarix PF Quadrivalent ] DR KURT BARROSO MD [facility] 03-11-2023 influenza virus vaccine, unspecified formulation Rhys Mcnulty [facility] - [facility] Work Phone: [facility] 02-06-2022 influenza, injectabl e, quadrivalent, contains preservative; Translations: [Fluarix PF Quadrivalent ] DR KURT BARROSO MD [facility] 02-06-2022 tetanus toxoid, redu keisha diphtheria toxoid, and acellular pertussis vaccine, adsorbed; Translations: [Boostrix (Tdap)] DR KURT BARROSO MD [facility] 07-24-2020 SARS-CoV-2 (COVID-19 ) mRNA-1273 vaccine SONJA SALDAÑA DO [facility] 06-25-2020 SARS-CoV-2 (COVID-19 ) mRNA-1273 vaccine EMMA HARMON DO [facility] Comment on above: Result Comment: [facility] 12-20-2018 influenza virus vaccine, unspecified formulation SONJA SALDAÑA DO [facility] 02-08-2018 influenza virus vaccine, unspecified formulation SONJA SALDAÑA DO [facility] Comment on above: Result Comment: 2021: VIS DATE: 10/06/2014 02-08-2018 Influenza, Quadv, 6 mo and older, IM, PF (Flulaval, Fluarix) [facility] Work Phone: 01-08-2010 influenza virus vaccine, unspecified formulation Macy Jorge [facility] Payers Date Payer Category Payer Medicaid [id number] 2024 Self-pay 2024 Private Health Insurance [id number] 2023 Unknown [id number] [id number] .[id number] 2023 Unknown [id number] 2023 Medicare AETNA MEDICARE A DVANTAGE AETNA MEDICARE [id number] 2023-Present [address] [place] [address] Medicare HMO [id number] 2023 Private Health Insurance [id number] 2019 Unknown [id number] [id number] .7.3.966726.315 2019 Unknown BCBS [place]BS - [place] P PO xxxxxxxxxxxx 2019-Present [address] [place] [address] xxxxxxxxxxxx [id number] .[id number] 2018 Medicare MEDICARE MEDICAR E PART A AND B xxxxxxxxxxx 2018 [place] [address] xxxxxxxxxxx [id number] .[id number] 2014 Medicare [id number] 1.2.840.868967.1.13.239.2 .7.3.444631.315 2013 Unknown [id number] 1.2.840.236711.1.13.239.2 .7.3.611510.315 1965 Unknown [id number] 2.16.840.1.976502.3.579.2 .1965 Unknown [id number] 2.16.840.1.590975.3.579.2 .1965 Unknown [id number] 2.16.840.1.758515.3.579.2 .1965 Unknown [id number] 2.16.840.1.216698.3.579.2 .1965 Unknown [id number] 2.16.840.1.790124.3.579.2 .1965 Unknown [id number] 2.16.840.1.829719.3.579.2 .1965 Unknown [id number] 2.16.840.1.815718.3.579.2 .1965 Unknown [id number] 2.16.840.1.336752.3.579.2 .1965 Unknown [id number] 2.16.840.1.865111.3.579.2 .1965 Unknown [id number] 2.16.840.1.298712.3.579.2 .1965 Unknown [id number] 2.16.840.1.139883.3.579.2 .1965 Unknown [id number] 2.16.840.1.123817.3.579.2 .627 1965 Unknown [id number] 2.16.840.1.480076.3.579.2 .1965 Unknown [id number] 2.16.840.1.244080.3.579.2 .1965 Unknown [id number] 2.16.840.1.681031.3.579.2 .1965 Unknown [id number] 2.16.840.1.327017.3.579.2 .1965 Unknown [id number] 2.16.840.1.329334.3.579.2 .1965 Unknown [id number] 2.16.840.1.383092.3.579.2 .1965 Unknown [id number] 2.16.840.1.991595.3.579.2 .1965 Unknown [id number] 2.16.840.1.757987.3.579.2 .1965 Unknown [id number] 2.16.840.1.980856.3.579.2 .1965 Unknown [id number] 2.16.840.1.496777.3.579.2 .1965 Unknown [id number] 2.16.840.1.284275.3.579.2 .1965 Unknown [id number] 2.16.840.1.325436.3.579.2 .1965 Unknown [id number] 2.16.840.1.673062.3.579.2 .1965 Unknown [id number] 2.16.840.1.205256.3.579.2 .62 Unknown [id number] 2.16.840.1.041040.3.579.2 .462 Unknown [id number] 2.16.840.1.292944.3.579.2 .462 Unknown [id number] 2.16.840.1.958933.3.579.2 .462 Social History Date Type Detail Facility Start: 08-24-2018 End: 10-11-2024 Tobacco smoking status NHIS Never smoker [facility] Work Phone: Start: 08-24-2018 End: 10-30-2023 Alcohol intake Current non-drinker of alcohol (finding) [facility] Work Phone: Start: 1965 Sex Assigned At Not on file S [facility] Work Phone: Start: 10-27-2019 End: 10-30-2023 Tobacco use and exposure Never used [employer] [place] Exposure to SARS-CoV -2 (event) Yes [facility] [place], [place] Exposure to SARS-CoV -2 (event) Not sure [employer] Start: 11-09-2019 End: 11-09-2019 Assertion Unknown if ever smoked [facility] Work Phone: Start: 1965 Sex Assigned At Female [facility] Start: 11-03-2019 End: 10-30-2023 Alcohol intake [facility] Start: 05-17-2023 End: 10-30-2023 Humiliation, Afraid, Rape, and Kick questionnaire [HARK] [facility] Within the last year , have you been afraid of your partner or ex-partner? No [facility] How often to you hav e a drink containing alcohol? Never [facility] How many standard drinks containing alcohol do you have on a typical day? Patient does not drink [facility] Are you now , , , , never or living with a partner? [facility] Do you feel stress - tense, restless, nervous, or anxious, or unable to sleep at night because your mind is troubled all the time - these days [OSQ] Not at all [facility] (I/We) worried whealejandra er (my/our) food would run out before (I/we) got money to buy more. Never true [facility] Start: 10-30-2023 Gender identity Identifies as female gender (finding) [facility] Start: 10-30-2023 Sexual orientation Heterosexua l (finding) [facility] Sexual Orientation [facility] Start: 08-24-2018 End: 06-05-2024 Sex Female (finding) [facility] NEGATED: Highlighted rowStart: NINF History of tobacco use Passive smoker [facility] Functional Status Date Assessment Result Facility 01-20-2024 Functional Status Maintained [facility] 11-30-2023 Functional Status Independent [facility] 11-30-2023 Functional Status Standard Safet y ID band on, Allergy Band on, Call device within reach, Bed in low position, Wheels locked, Visitor at bedside [facility] 11-30-2023 Functional Status [facility] 09-16-2023 Functional Status Independent [facility] 09-15-2023 Functional Status Awake, Resting [facility] 09-06-2023 Functional Status Activity Naveed tance Independent [facility] 09-06-2023 Functional Status Standard Safet y ID band on, Allergy Band on, Call device within reach, Bed in low position, Wheels locked, Bedside Cart Locked, Safety level maintained [facility] 04-02-2023 Functional Status Assistive Device None [facility] 07-24-2021 Functional Status Independent [facility] 07-24-2021 Functional Status Standard Safet y ID band on, Allergy Band on, Call device within reach, Bed in low position, Wheels locked, Upper/Half-Length side-rails up, Phone within reach, personal items within reach, Visitor at bedside [facility] Mental Status Date Assessment Result Facility 10-11-2024 Cognitive function Voice/Name [facility] Work Phone: 08-17-2024 Cognitive function Level Of Cons ciousness Awake;Alert;Appropriate;Follow s Commands [facility] Work Phone: 01-20-2024 Mental Status Oriented x 4 [facility] 11-30-2023 Mental Status O[facility] Oriented x 4 [facility] 11-30-2023 Mental Status [facility] 09-16-2023 Mental Status Orientation Oriented x 4 [facility] 09-15-2023 Mental Status [facility] 09-06-2023 Mental Status Orientation Oriented x 4 [facility] 09-06-2023 Mental Status [facility] 04-02-2023 Mental Status Orientation Oriented x 4 [facility] 07-24-2021 Mental Status Orientation Oriented x 4 [facility] 07-24-2021 Mental Status [facility] Clinical Notes 07-24-2021 to 10-11-2024 Note Date & Type Note Facility 10-11-2024 Radiology Diagnostic study note [facility] Imaging Services [address] [place] [address] Abdomen/Pelvis W IV Cont ONLY MR#: [id number] Acct: [id number] Name: AYALA ARANDA Rep #: [id number] : 1965 F 59 From: [facility] live Jenkins MD PCP: Dr. Emma Harmon, DO Status: REG ER Study:Abdomen/Pelvis W IV Cont ONLY Date of E xam: 10/11/24 Exam# [id number] Ordering Dr: Iris Dilalo MD PROCEDURE: CT ABDOMEN/PELVIS W IV CONT ONLY 10/11/2024 REASON FOR EXAM: ABD PAIN TECHNIQUE: CT ABDOMEN/PELVIS W IV CONT ONLY Coronal and Sagittal reconstruction series wereprovided. CONTRAST: Isovue 370 VOLUME: 98 mL One or more dose reduction techniques were used (e.g., Automated exposure control, adjustment of the mA and/or kV according to patient size, use of iterative reconstruction technique. RADIATION DOSE SUMMARY: DLP: 1075.38 mGycm COMPARISON: Abdominal CT 06/05/2024. FINDINGS: Lung bases: Clear, with mild dependent atelectasis. Liver: Diffuse hepatic steatosis. Otherwise unremarkable. Gallbladder: Surgically absent. Spleen: Unremarkable. Pancreas: No significant abnormality. No ductal dilatation. Stable benign-appearing circumscribed cyst measuring up to 1.5 cm in the pancreatic head/neck region. Adrenals: Unremarkable. Kidneys: Symmetric enhancement. Small nonobstructive stone in the lower pole ofthe left kidney. No hydroureteronephrosis on either side or perinephric edema. No mass. Bladder: Underdistended, grossly unremarkable. Reproductive Organs: Prior hysterectomy. Unremarkable adnexal regions. Bowel: Postoperative changes of gastric bypass and small bowel anastomosis in the left midabdomen. No evidence of obstruction. Normal appendix. Moderate scattered colonic diverticulosis. There is a localized prominent diverticulum along the descending colon in the left midabdomen with localized mild inflammatory fat stranding/edema, suggesting mild/early acute diverticulitis. No evidence of perforation. Lymph nodes: No enlarged abdominopelvic lymph nodes. Surgical clips/suture material anterior to the right iliac bifurcation. Vasculature: Normal caliber abdominal aorta and IVC. Mild atherosclerotic calcifications. Peritoneum / Retroperitoneum: No ascites or free air. Musculoskeletal: Mild degenerative changes of the spine. Postoperative changes from prior lower ventral abdominal wall hernia repair. No incisional hernia. CT/Abdomen/Pelvis W IV Cont ONLY IMPRESSION: 1. Probable mild/early diverticulitis focally involving the descending colon. 2. Small nonobstructive left renal stone. No hydroureteronephrosis. 3. Diffuse hepatic steatosis. 4. Unchanged 1.5 cm benign-appearing cyst in the pancreatic head/neck. 5. Chronic and postoperative ancillary findings as described above. Reading Location: [facility] CC: Dr. Wesly Diallo MD; Dr. Emma Harmon DO ~ Service Station Equipment Mechanic: Signed [facility] 10-11-2024 Radiology Diagnostic study note [facility] Imaging Services [address] [place] [address] Brain/Head without Contrast MR#: [id number] Acct: [id number] Name: AYALA ARANDA Rep #: [id number] : [id number] F 59 From: [facility] Jenkins MD PCP: Dr. Emma Harmon DO Status: REG ER Study:Brain/Head without Contrast Date of Exa m: 10/11/24 Exam# [id number] Ordering Dr: Iris Diallo MD PROCEDURE: CT BRAIN/HEAD WITHOUT CONTRAST 10/11/2024 REASON FOR EXAM: ALOC TECHNIQUE: CT BRAIN/HEAD WITHOUT CONTRAST. Coronal and Sagittal reconstruction series were provided. One or more dose reduction techniques were used (e.g., Automated exposure control, adjustment of the mA and/or kV according to patient size, use of iterative reconstruction technique. RADIATION DOSE SUMMARY: DLP: 1075.38 mGycm COMPARISON: None. FINDINGS: No acute intracranial hemorrhage, extra-axial collection, mass effect or evidence of acute infarct. Mild generalized brain parenchymal volume loss, and chronic microangiopathic changes, which are somewhat advanced for patient's age. Orbital contents are unremarkable. Intact skull base and calvarium. Clear paranasal sinuses and mastoid air cells. CT/Brain/Head without Contrast IMPRESSION: No acute intracranial abnormality. Mild generalized brain parenchymal volume loss and chronic microangiopathic changes, which appears somewhat advanced for patient's age. Reading Location: [facility] CC: Dr. Wesly Diallo MD; Dr. Emma Harmon DO ~ Service Station Equipment Mechanic: Signed [facility] 10-11-2024 Radiology Diagnostic study note [facility] Imaging Services [address] [place], [place] [address] Chest PA and Lateral MR#: [id number] Acct: [id number] Name: AYALA ARANDA Rep #: [id number] : 1965 F 59 From: Laurence Sewell MD PCP: Dr. Emma Harmon DO Status: REG ER Study:Chest PA and Lateral Date of Exam: 10/11/24 Exam# [id number] Ordering Dr: Iris Diallo MD PROCEDURE: CHEST PA AND LATERAL 10/11/2024 REASON FOR EXAM: CHEST PAIN TECHNIQUE: CHEST PA AND LATERAL COMPARISON: Chest x-ray FINDINGS: Hardware: Stable ACDF. Heart: Heart size is moderately enlarged. Mediastinum: The mediastinal contour is unremarkable. Lungs: Bilateral pulmonary vascular congestion. Bones: Degenerative changes are identified within the thoracic spine. Other: Surgical clips within bilateral upper quadrants. RAD/Chest PA and Lateral IMPRESSION: NO SIGNIFICANT CHANGE SINCE THE PRIOR EXAM. Reading Location: [id number] CC: Dr. Wesly Diallo MD; Dr. Emma Harmon DO ~ Service Station Equipment Mechanic: Signed [facility] 08-17-2024 Discharge summary [facility] 08-17-2024 Discharge summary Note Date/Time August 17, 2024 10:07pm [facility] Medical Records Department [address] [place] [address] Emergency Department Summary 08/17/24 MR#: [id number] Acct: [id number] Name: AYALA ARANDA Rep #:[id number] : 1965 59 From: Kvng Pelaez MD PCP: Dr. Emma Harmon DO Status:REG ER Location: ED HPI History of Present Illness Chief Complaint: Syncope Detail of Chief Complaint: Lightheaded and falls every time she stands up Informant: patient Onset/Context/Timing Onset: Weeks (Past 1 week has fallen 18 times. Triage documents this is been going on for 4 weeks) Context: Sudden Onset Timing: Intermittent Quality: If I stand up I become lightheaded and fall Location: Not applicable Current Severity: Mild Maximum Severity: Severe Worsened by: Upright position Relieved by: Supine position Associated Symptoms Associated Symptoms: Orthostatic lightheadedness Narrative Narrative: Patient is a 59-year-old woman. She has history of hypertension on losartan, depression, hypercholesterolemia, type 2 diabetes on metformin and hypothyroidism. Patient states she is falling 18 times the past week. She stands up she comes lightheaded and falls. Yesterday she fell and her glass frame caused a cut to the bridge of her nose. Prior to today's fall she had a headache. She denies double vision, blurred vision or loss of vision. Denies ringing or ears or decreased hearing. She denies trouble with speech or swallowing. Patient denies chest discomfort, tightness, heaviness, shortness of breath, dyspnea on exertion or orthopnea. Patient denies shortness of breath or cough. Patient denies abdominal pain, nausea, vomiting, diarrhea, black or maroon-colored stool. She denies mucus in her stool. She denies bright red blood per rectum. Patient does endorse decreased urine output. She denies hematuria, dysuria or urgency. Patient denies upper or lower extremity pain. She denies bruising easily. She denies paresthesia, anesthesia or motor weakness. Prior similar symptoms: No Recent Illness/Hospitalization: No [facility] Medical History Depression Anxiety Hypertension Hyperthyroidism Home Medications ?Medication ?Instructions ?Recorded ?Last Taken ?Type metformin 1,000 mg 24 hr 1,000 mg PO DAILY 10/08/15 0 10/08/15 History tablet,extended release (gastric reten.) dicyclomine 20 mg tablet 20 mg PO 4X/DAY PRN PRN abdo tasia 06/05/24 Unknown History pain hydroxyzine HCl 25 mg tablet 25 mg PO 4X/DAY 06/05/24 Unknown History levetiracetam 500 mg tablet 500 mg PO BID 06/05/24 Unk nown History levothyroxine 112 mcg tablet 112 mcg PO DAILY 06/05/24 Unknown History losartan 25 mg tablet 25 mg PO DAILY 06/05/24 Unkn own History olanzapine 10 mg tablet 10 mg PO DAILY 06/05/24 Unkn own History polyethylene glycol 3350 17 17 g PO DAILY #119 grams 0 06/05/24 Unknown Rx gram/dose oral powder (Miralax) ramelteon 8 mg tablet 8 mg PO QHS 06/05/24 Unknown History rosuvastatin 20 mg tablet 20 mg PO QHS 06/05/24 Unknow n History sennosides 8.6 mg capsule (senna) 8.6 mg PO DAILY PRN constipation 06/05/24 Unknown Rx #14 caps sertraline 100 mg tablet 150 mg PO 06/05/24 Unknown H istory zolpidem 5 mg tablet 5 mg PO QHS PRN PRN insomnia 06/05/24 Unknown History ferrous sulfate 325 mg (65 mg 325 mg PO BID 08/17/24 U nknown History iron) tablet gabapentin 300 mg capsule 300 mg PO TID 08/17/24 Unkno wn History Allergy/AdvReac Type Severity Reaction Status Date / Time diphenhydramine (From Allergy Anaphylaxis Verified 08/17/24 17:37 Benadryl) morphine Allergy Anaphylaxis Verified 08/17/24 17:37 vancomycin Allergy Anaphylaxis Verified 08/17/24 17:37 Surgical History H/O spinal fusion H/O hernia repair Social History household members: none Smoking Status: Never smoker ROS ROS ED Constitutional Constitutional ED: Denies chills, fever(s), subjective, sweats or weight loss Eyes Eyes: Denies blurry vision, change in vision or diplopia ENT ENT ED: Denies ear pain, rhinorrhea or sore throat Cardiovascular Cardiovascular: Denies chest pain, orthopnea, palpitations, paroxysmal nocturnaldyspnea or racing heartbeat Respiratory/Chest Respiratory/Chest: Denies cough, dyspnea, dyspnea on exertion, orthopnea or paroxysmal nocturnal dyspnea Gastrointestinal Gastrointestinal: Denies abdominal pain, constipation, diarrhea, melena, nausea or vomiting Genitourinary Genitourinary ED: Reports other Details: Decreased urine output ; Denies dysuria, hematuria or urinary frequency Musculoskeletal Musculoskeletal: Denies arthralgias, back pain, myalgias or neck pain Neurologic Neurologic: Reports headache(s); Denies paresthesias or weakness Psychiatric Psychiatric: Denies anxiety or depression Endocrine Endocrinology: Denies cold intolerance or heat intolerance Hematologic/Lymphatic Hematologic/Lymphatic: Reports systems reviewed and no addt'l complaints, exceptas documented Allergic/Immunologic Allergic/Immunologic ED: Denies mouth swelling or tongue swelling EXAM Physical Exam Const Vital Signs: 08/17/24 16:54 08/17/24 17:03 08/17/24 18:52 Temperature 98.4 F Temperature Source Oral Pulse Rate 55 L 48 L Respiratory Rate 16 16 Respiratory Effort Normal Blood Pressure 91/37 L 113/59 L Blood Pressure Mean 55 77 Pulse Ox 95 95 Oxygen Delivery Method Room Air 08/17/24 20:00 Temperature Temperature Source Pulse Rate 47 L Respiratory Rate 15 Respiratory Effort Blood Pressure 123/77 H Blood Pressure Mean 92 Pulse Ox 96 Oxygen Delivery Method Room Air Positive well nourished and well developed Constitutional Narrative: BMI is 32.4. General Appearance ED: well developed and pallor; Negative for cyanotic or diaphoretic HEENT Reports dry mucous membranes HEENT Narrative: Patient has an abrasion bridge of the nose. There is no clinical findings of basilar skull fracture. There is no septal deviation or hematoma noted. Uvula is midline. Posterior pharynx is normal. Mouth ED: Yes dry mucous membranes Mouth: dry mucous membranes Eyes PERRL and EOMs intact bilaterally General Eye ED: Negative for pale conjunctiva or scleral icterus Neck no lymphadenopathy, supple and no JVD Chest Wall inspection of chest normal and palpation of chest normal Resp normal respiratory effort and clear to auscultation bilaterally Cardio regular rate, regular rhythm, S1 normal heart sound, S2 normal heart sound and no murmurs GI normal to inspection, nondistended, normoactive bowel sounds, non-tender, non-distended and no masses; Negative for hepatosplenomegaly GI Narrative: There is no pulsatile mass. There is no abdominal bruit. Thank you Back/Spine no CVA tenderness Cervical Spine: Negative for cervical spine tenderness Thoracic Spine / Upper Back: Negative for thoracic spinal tenderness Lumbar Spine / Lower Back: Negative for lumbar spinal tenderness Extremity normal to inspection Neuro oriented x3 and CN's II-XII intact bilaterally Sensorium / Orientation: alert Psych mental status grossly normal Skin no rashes or lesions noted, No no wounds and skin turgor normal General Skin Exam: pallor; Negative for jaundice MDM MDM MDM Narrative Medical decision making narrative: Vital signs are marked for hypotension and bradycardia. With patient having history of diabetes this could represent autonomic dysfunction. This could represent atypical presentation for cardiac ischemia. Need to consider infectious source. Need to consider GI bleed. Since patient has history of hypothyroidism need to consider significant hypothyroidism and possible myxedemacoma. Patient has asked for medicine for her headache. Reluctant to give oral at thistime. Reluctant to give IV parenteral because it may cause her blood pressure to lower more. Lab Data Attestation: I reviewed the patient's lab results. Lab results narrative: CBC is normal. Basic metabolic panel is normal. Liver profile reveals slight elevation of alkaline phosphatase. Lactate is normal. Labs: Laboratory Results - last 24 hr 08/17/24 08/17/24 08/17/24 17:37 17:46 19:10 WBC 8.8 RBC 4.23 Hgb 12.8 Hct 36.8 L MCV 87.0 MCH 30.3 MCHC 34.8 RDW Std Deviation 40.9 RDW Coeff of Bobby 12.9 Plt Count 291 MPV 11.2 Immature Gran % (Auto) 0.200 Neut % (Auto) 65.0 Lymph % (Auto) 24.8 Early % (Auto) 7.1 Eos % (Auto) 2.3 Baso % (Auto) 0.6 Absolute Neuts (auto) 5.7 Absolute Lymphs (auto) 2.19 Nucleated RBC % 0 Sodium 138 Potassium 4.7 Chloride 106 Carbon Dioxide 23.2 Anion Gap 9 BUN 11 Creatinine 0.75 Estim Creat Clear Calc 79.28 Est GFR (MDRD) Non-Af 91 BUN/Creatinine Ratio 14.2 Glucose 77 Lactic Acid < 1.0 Calcium 8.3 Total Bilirubin 0.35 AST 39 H ALT 30 Alkaline Phosphatase 120 H Troponin T High Sens 9 Troponin T Hi Sens 2 Hr Total Protein 6.5 Albumin 4.0 Globulin 2.4 Albumin/Globulin Ratio 1.7 TSH 4.980 H Urine Color Urine Clarity Urine pH Ur Specific Henderson Urine Protein Urine Glucose (UA) Urine Ketones Urine Occult Blood Urine Nitrite Urine Bilirubin Urine Urobilinogen Ur Leukocyte Esterase Urine RBC Urine WBC Ur Squamous Epith Cells Urine Bacteria Urine Mucus POC Glucose 08/17/24 08/17/24 08/17/24 19:28 19:36 21:22 WBC RBC Hgb Hct MCV MCH MCHC RDW Std Deviation RDW Coeff of Bobby Plt Count MPV Immature Gran % (Auto) Neut % (Auto) Lymph % (Auto) Early % (Auto) Eos % (Auto) Baso % (Auto) Absolute Neuts (auto) Absolute Lymphs (auto) Nucleated RBC % Sodium Potassium Chloride Carbon Dioxide Anion Gap BUN Creatinine Estim Creat Clear Calc Est GFR (MDRD) Non-Af BUN/Creatinine Ratio Glucose Lactic Acid Calcium Total Bilirubin AST ALT Alkaline Phosphatase Troponin T High Sens Troponin T Hi Sens 2 Hr 8 Total Protein Albumin Globulin Albumin/Globulin Ratio TSH Urine Color Yellow Urine Clarity Clear Urine pH 6.0 Ur Specific Henderson 1.015 Urine Protein 15 H Urine Glucose (UA) Normal Urine Ketones Negative Urine Occult Blood Negative Urine Nitrite Negative Urine Bilirubin Negative Urine Urobilinogen Normal Ur Leukocyte Esterase Negative Urine RBC 0-5 SEEN Urine WBC 0-5 SEEN Ur Squamous Epith Cells 0-5 SEEN Urine Bacteria 0 SEEN Urine Mucus 0 SEEN POC Glucose 75 UA is unremarkable. EKG Initial EKG: Attestation: I personally reviewed and interpreted this EKG as follows: Interpretation: Sinus Bradycardia (Sinus bradycardia rate of 48. HI interval is 188 ms cures duration 82 ms. QT duration 190 ms. [place] is normal) Treatment and Re-Evaluation :: Patient was reassessed at 2201. Patient looks much better. She is smiling. She reports she feels much better. Her blood pressure is improved markedly. Suspect patient's hypotension was due to hypovolemia. Will discharge to home since there is no evidence of infection. Furthermore there is no evidence of cardiac ischemia. Her heart rate on the monitor is now 55. Discharge Plan Triage Chief Complaint: Syncope ED Provider: Kvng Pelaez Dx/Rx/DC Orders Clinical Impression: Hypotension due to hypovolemia, Headache, Type 2 diabetes mellitus, Persistent sinus bradycardia, Abrasion of nose, Frequent falls Instructions: ED Low Blood Pressure, All Causes Prescriptions: No Action metformin 1,000 MG tablet,ER jane.retention 24 hr 1,000 mg PO DAILY Patient Comments: diabetes polyethylene glycol 3350 [Miralax] 17 gram/dose powder 17 g PO DAILY Qty: 119 0RF senna 8.6 mg capsule 8.6 mg PO DAILY PRN (Reason: constipation) Qty: 14 0RF levetiracetam 500 mg tablet 500 mg PO BID sertraline 100 mg tablet 150 mg PO olanzapine 10 mg tablet 10 mg PO DAILY dicyclomine 20 mg tablet 20 mg PO 4X/DAY PRN PRN (Reason: abdominal pain) losartan 25 mg tablet 25 mg PO DAILY hydroxyzine HCl 25 mg tablet 25 mg PO 4X/DAY zolpidem 5 mg tablet 5 mg PO QHS PRN PRN (Reason: insomnia) levothyroxine 112 mcg tablet 112 mcg PO DAILY rosuvastatin 20 mg tablet 20 mg PO QHS ramelteon 8 mg tablet 8 mg PO QHS ferrous sulfate 325 mg (65 mg iron) tablet 325 mg PO BID gabapentin 300 mg capsule 300 mg PO TID Primary Care Provider: Emma Harmon Referrals: Emma Harmon DO [Primary Care Provider] - 3-5 Days Print Language: Liberian Disposition Disposition: Home, Self Care What to do if you have Problems For any increased pain, shortness of breath, bleeding, nausea or vomiting, chestpain, or any unexpected problems, contact your Primary Care Provider. Call [facility] ([phone]) or report to the closest Emergency Room. Call 911 if necessary. 08/17/242206 <Electronically signed by Kvng Pelaez MD> Cosigner Signature (if applicable): CC: Dr. Emma Harmon, DO ~ Signed [facility] Work Phone: [phone] 627-195705-28-2025 Note* Exam Date Time Procedure Performing Provider Status 07/27/24 1:48 PM MRI Spine Cervical w / + w/o Contrast MAYTE ZAPIEN DO; Auth (Verified) [id number] ORIGINAL EXAMINATION: MRI OF THE CERVICAL SPINE WITHOUT AND WITH CONTRAST 07/27/2024 1:49 pm: TECHNIQUE: Multiplanar multisequence MRI of the cervical spine was performed without and with the administration of intravenous contrast. COMPARISON: None. HISTORY: ORDERING SYSTEM PROVIDED HISTORY: Reason for Exam: bilateral arm weakness, hx spine surgery FINDINGS: BONES/ALIGNMENT: Changes status post C7-T1 ACDF. There is fusion of the C7 and T1 vertebral bodies and posterior elements. There is normal alignment of the spine. The vertebral body heights are maintained. The bone marrow signal appears unremarkable. SPINAL CORD: No abnormal cord signal is seen. SOFT TISSUES: No abnormal enhancement of the cervical spine. Prevertebral and paraspinal soft tissues are unremarkable. Cervical fat planes appear preserved. Extracranial cerebrovascular flow voids appear maintained. C2-C3: There is no significant disc protrusion, spinal canal stenosis or neural foraminal narrowing. C3-C4: Minimal asymmetric left disc osteophyte complex without significant narrowing of the spinal canal. Facet and uncovertebral arthropathy result in mild left neural foraminal stenosis. C4-C5: There is no significant disc protrusion, spinal canal stenosis or neural foraminal narrowing. C5-C6: Questionable tiny central posterior annular tear without significant disc bulge or herniation. No significant narrowing of the spinal canal. Facet and uncovertebral arthropathy result in mild left neural foraminal stenosis. C6-C7: Minimal diffuse disc bulge without significant narrowing of the spinal canal. No significant neural foraminal stenosis. C7-T1: At the level of the C7-T1 discectomy, there is an asymmetric left osseous prominence resulting in mild narrowing of the spinal canal. No significant neural foraminal stenosis. IMPRESSION: 1. No acute abnormality of the cervical spine. 2. Mild multilevel degenerative changes as above. Interpreted by: Mayte Zapien Preliminary Report By: Mayte Zapien Electronically signed By Mayte Zapien Dictated Date: 07/27/2024 3:07:38 PM Prelim Date: 07/27/2024 3:20:14 PM Sign Date: 07/27/2024 3:20:14 PM Ordering Provider: EMMA HARMON [facility]04-06-2025 Radiology Diagnostic study note [facility] Imaging Services [address] [place], [place] [address] Abdomen/Pelvis W IV Cont ONLY MR#: [id number] Acct: [id number] Name: AYALA ARANDA Rep #: [id number] : 1965 F 59 From: Pet er Peer DO PCP: Dr. Emma Harmon, Status: REG ER Study:Abdomen/Pelvis W IV Cont ONLY Date of E xam: 06/05/24 Exam# [id number] Ordering Dr: Naya Marc PROCEDURE: ABDOMEN/PELVIS W IV CONT ONLY 06/05/2024 REASON FOR EXAM: ABDOMINAL PAIN, CONSTIPATION Surgical history of spinal fusion and hernia repair. TECHNIQUE: Abdomen and pelvis CT with intravenous contrast. Coronal and Sagittal reconstruction series were provided. PATIENT PREPARATION: Per protocol ORAL CONTRAST TYPE: None. AMOUNT: mL CONTRAST: Isovue 370 VOLUME: 100 mL IV One or more dose reduction techniques were used (e.g., Automated exposure control, adjustment of the mA and/or kV according to patient size, use of iterative reconstruction technique. RADIATION DOSE SUMMARY: CTDlvol: 16.55 mGy DLP: 991.11 mGycm COMPARISON: None. FINDINGS: Lung bases: Lung bases are clear. No pleural effusions. Postsurgical changes in the stomach Cholecystectomy clips are seen in the gallbladder fossa. The liver, spleen, pancreas, adrenals and kidneys are unremarkable. Bladder: Unremarkable Reproductive Organs: Post hysterectomy Bowel: Moderate volume of feces throughout the colon. Appendix: No evidence of appendicitis. Lymph nodes: No lymphadenopathy. Vasculature: Mild calcific plaque burden in the abdominal aorta Peritoneum / Retroperitoneum: No free air. No free fluid. Bones: Unremarkable. CT/Abdomen/Pelvis W IV Cont ONLY IMPRESSION: UNREMARKABLE CONTRAST-ENHANCED CT OF THE ABDOMEN AND PELVIS Moderate volume of feces throughout colon Reading Location: [facility] CC: Dr. 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 Emma Harmon DO Status:REG ER Location: ED HPI History of Present Illness Chief Complaint: Nausea/Vomiting Detail of Chief Complaint: Abdominal pain lateral aspect of lower horizontal incision with bulging & N Informant: patient Onset/Context/Timing Onset: Weeks (If not months) Context: - (Intermittent nausea and vomiting, bulging for some time and intermittent pain) Timing: - (Previously documented) Quality: Severe pain Location: Lateral aspect of horizontal incision for gastric bariatric surgery Current Severity: Mild Maximum Severity: Severe Worsened by: Anytime when she eats. Also when she has nausea and vomiting Relieved by: Nothing Associated Symptoms Associated Symptoms: No constipation. Patient is still flagellated. Narrative Narrative: Patient is a 59-year-old female. She has history of type 2 diabetes, she is on metformin. She has had multiple abdominal surgeries. She has had repair for multiple hernias. She reports vomiting twiceyesterday and twice today. She denies coffee-ground emesis or hematemesis. Her last normal bowel movement was yesterday. She is still flagellated. She has had this bulge for some time. Her doctors iseven aware of it. She denies black or maroon-colored stool. Shedenies dysuria, frequency, urgency or hematuria. She denies blurred vision. She denies thirst or dry mouth. Denies orthostatic symptoms.As I was walking out of the room after my H&P she informed me again that the pain is severe. Prior similar symptoms: Yes Recent Illness/Hospitalization: No [facility] Home Medications ?Medication ?Instructions ?Recorded ?Last Taken ?Type metformin 1,000 mg 24 hr 1,000 mg PO DAILY 10/08/15 0 10/08/15 History tablet,extended release (gastric reten.) Allergy/AdvReac Type Severity Reaction Status Date / Time diphenhydramine (From Allergy Anaphylaxis Verified 05/20/24 15:06 Benadryl) morphine Allergy Anaphylaxis Verified 05/20/24 15:06 vancomycin Allergy Anaphylaxis Verified 05/20/24 15:06 Social History (Updated 05/20/24 @ 15:[address] Kvng Pelaez MD) household members: none Smoking Status: Never smoker ROS ROS ED Constitutional Constitutional ED: Denies chills, fever(s), subjective, sweats or weight loss Eyes Eyes: Denies blurry vision or change in vision Cardiovascular Cardiovascular: Denies chest pain or palpitations Respiratory/Chest Respiratory/Chest: Denies cough, dyspnea or dyspnea on exertion Gastrointestinal Gastrointestinal: Reports abdominal pain, nausea and vomiting; Denies constipation, diarrhea or melena Genitourinary Genitourinary ED: Denies dysuria, hematuria or urinary frequency Musculoskeletal Musculoskeletal: Denies arthralgias, back pain or myalgias Integumentary Denies rash Hematologic/Lymphatic Hematologic/Lymphatic: Reports systems reviewed and no addt'l complaints, exceptas documented EXAM Physical Exam Const Vital Signs: 05/20/24 15:07 05/20/24 17:06 Temperature 96.1 F L Temperature Source Temporal Pulse Rate 53 L 62 Respiratory Rate 14 16 Blood Pressure 133/70 H 136/74 H Blood Pressure Mean 91 94 Pulse Ox 98 99 Oxygen Delivery Method Room Air Positive well nourished and well developed Constitutional Narrative: BMI 32.1. General Appearance ED: well developed and pallor; Negative for cyanotic, diaphoretic or NAD HEENT Reports dry mucous membranes Mouth ED: Yes dry mucous membranes Mouth: dry mucous membranes Eyes PERRL and EOMs intact bilaterally General Eye ED: Negative for pale conjunctiva or scleral icterus Neck no lymphadenopathy, supple and no JVD Resp normal respiratory effort and clear to auscultation bilaterally Cardio regular rate, regular rhythm, S1 normal heart sound, S2 normal heart sound and no murmurs GI GI Narrative: Patient has multiple well-healed scars. When patient Valsalvas on demand there is a bulge noted lateral horizontal inferior incision. There is a small defect. The hernia is reducible. There is no inflammation in the proximity of this bulge. There is no induration, erythema or warmth. There is no discoloration to suggest cyanosis. Auscultation: hypoactive bowel sounds Palpation: soft and tender other (Lateral inferior horizontal incision with small ventral hernia noted.) Back/Spine no CVA tenderness Extremity normal to inspection Neuro oriented x3 and CN's II-XII intact bilaterally Sensorium / Orientation: alert Psych mental status grossly normal Skin no rashes or lesions noted, no wounds and skin turgor normal General Skin Exam: elasticity normal and pallor; Negative for jaundice MDM MDM MDM Narrative Medical decision making narrative: Patient's nausea and vomiting may be due to gastroparesis and she has type 2 diabetes. The nausea vomiting be due to a viral infection. Based on history and physical exam I doubt this is due to obstruction from her reducible ventral hernia. Will obtain CBC to assess white count differential. Electrolyte panel assess glucose, CO2 anion gap and renal function since she has been vomiting states she cannot eat or drink any for the last 2 days. She was treated with Zofran for her nausea. Abdominal series was obtained to see if there is an abnormal bowel gas pattern. If any of her labs come back significantly abnormalmay consider advanced imaging i.e. CT of the abdomen and pelvis. History & Record Review Additional record(s) reviewed:: Prior inpatient record (2016 for change in vision. Discharge summary authored by Dr. Tena.) Lab Data Attestation: I reviewed the patient's lab results. Lab results narrative: CBC is unremarkable. Electrolyte panel is unremarkable. Labs: Laboratory Results - last 24 hr 05/20/24 16:03 WBC 6.1 RBC 4.35 Hgb 12.8 Hct 37.6 MCV 86.4 MCH 29.4 MCHC 34.0 RDW Std Deviation 40.4 RDW Coeff of Bobby 12.9 Plt Count 295 MPV 10.5 Immature Gran % (Auto) 0.200 Neut % (Auto) 54.9 Lymph % (Auto) 35.2 Early % (Auto) 6.1 Eos % (Auto) 2.8 Baso % (Auto) 0.8 Absolute Neuts (auto) 3.4 Absolute Lymphs (auto) 2.15 Nucleated RBC % 0 Sodium 139 Potassium 4.1 Chloride 107 Carbon Dioxide 20.5 L Anion Gap 12 BUN 10 Creatinine 0.56 L Estim Creat Clear Calc 105.77 Est GFR (MDRD) Non-Af 105 BUN/Creatinine Ratio 17.3 Glucose 93 Calcium 8.7 Radiography Chest X-Ray - ED: Read by ED Physician (Three-view abdominal series was obtained. The chest portionis negative with normal cardiac silhouette size. Lung parenchyma normal. Hilum is normal. Osseous trucks reveal some chronic changes. Patient has knots of a gas pattern on the abdominal portion. There isno evidence of pneumoperitoneu) Diagnostic Testing: Clinical Impression(s) from Imaging Studies Acute Abdomen Series 05/20/24 16:15 IMPRESSION: NO ACUTE FINDINGS [facility] Discussion w/another healthcare provider: Radiologist (Radiologist contacted me because of confusion of what was written regarding history of surgery. She was told the surgery was remote. This is a known hernia. My opinion is reducible but because she has had so much pain reports nausea and vomiting 1 to examine the bowel gas pattern. She agreed chris) Treatment and Re-Evaluation :: Patient was informed at 181 that her workup is unremarkable. She be dischargedto home. She understands. She had no questions. Discharge Plan Triage Chief Complaint: Nausea/Vomiting ED Provider: Knvg Pelaez Dx/Rx/DC Orders Clinical Impression: Incisional hernia, without obstruction or gangrene, Type 2 diabetes mellitus, Nausea & vomiting, Sinus bradycardia, Elevated blood-pressure reading without diagnosis of hypertension Instructions: ED Hernia (Adult), ED Hypertension, To Be Confirmed Prescriptions: No Action metformin 1,000 MG tablet,ER jane.retention 24 hr 1,000 mg PO DAILY Patient Comments: diabetes Primary Care Provider: Emma Harmon Referrals: Emma Harmon DO [Primary Care Provider] - 1-2 Weeks Care Physician,No Primary [Non-Staff] - Activity Restrictions/Additional Instructions: Your blood pressure readings have been elevated. You need to follow-up with your doctor to have your blood pressure rechecked in 1 to 2 weeks. Print Language: Liberian Disposition Disposition: Home, Self Care What to do if you have Problems For any increased pain, shortness of breath, bleeding, nausea or vomiting, chestpain, or any unexpected problems, contact your Primary Care Provider. Call [facility] ([phone]) or report tothe closest Emergency Room. Call 911 if necessary. 05/20/24 1820 Cosigner Signature (if applicable): CC: Dr. Emma Harmon DO ~ Signed [facility]03-21-2025 Radiology Diagnostic study note [facility] Imaging Services [address] [place] [address] Acute Abdomen Inc Chest MR#: [id number] Acct: [id number] Name: AYALA ARANDA Rep #: [id number] : 1965 F 59 From: Medina Sullivan DO PCP: Dr. Emma Harmon DO Status: REG ER Study:Acute Abdomen Inc Chest Date of Exam: 05/20/24 Exam# [id number] Ordering Dr: Prema Pelaez MD PROCEDURE: ACUTE ABDOMEN INC CHEST 05/20/2024 REASON FOR EXAM: RIGHT LOWER QUADRANT PAIN DUE TO INCISIONAL HERNIA TECHNIQUE: Single AP view of the chest with supine and upright views of the abdomen. COMPARISON: None FINDINGS: No focal consolidation. No pneumothorax. Heart size is normal. Lower cervical spine fusion hardware. Nonobstructive bowel gas pattern. No evidence of free air. Status post cholecystectomy. Degenerative changes of the lumbar spine. The bilateral sacroiliac joints are grossly unremarkable. RAD/Acute Abdomen Inc Chest IMPRESSION: NO ACUTE FINDINGS Reading Location: [facility] CC: Dr. Emma Harmon DO; Dr. Kvng Pelaez MD ~ Service Station Equipment Mechanic: Signed [facility]03-21-2025 Discharge summary Author Kvng Pelaez [facility] Note Date/Time May 20, 2024 6:2 0pm [facility] Medical Records Department [address] [place] [address] Emergency Department Summary 05/20/24 MR#: [id number] Acct: [id number] Name: AYALA ARANDA Rep #:[id number] : 1965 59 From: Kvng Pelaez MD PCP: Dr. Emma Halko, DO Status:REG ER Location: ED HPI History of Present Illness Chief Complaint: Nausea/Vomiting Detail of Chief Complaint: Abdominal pain lateral aspect of lower horizontal incision with bulging & N Informant: patient Onset/Context/Timing Onset: Weeks (If not months) Context: - (Intermittent nausea and vomiting, bulging for some time and intermittent pain) Timing: - (Previously documented) Quality: Severe pain Location: Lateral aspect of horizontal incision for gastric bariatric surgery Current Severity: Mild Maximum Severity: Severe Worsened by: Anytime when she eats. Also when she has nausea and vomiting Relieved by: Nothing Associated Symptoms Associated Symptoms: No constipation. Patient is still flagellated. Narrative Narrative: Patient is a 59-year-old female. She has history of type 2 diabetes, she is on metformin. She has had multiple abdominal surgeries. She has had repair for multiple hernias. She reports vomiting twice yesterday and twice today. She denies coffee-ground emesis or hematemesis. Her last normal bowel movement was yesterday. She is still flagellated. She has had this bulge for some time. Her doctors is even aware of it. She denies black or maroon-colored stool. Shedenies dysuria, frequency, urgency or hematuria. She denies blurred vision. She denies thirst or dry mouth. Denies orthostatic symptoms. As I was walking out of the room after my H&P she informed me again that the pain is severe. Prior similar symptoms: Yes Recent Illness/Hospitalization: No PFSH PFSH Home Medications ?Medication ?Instructions ?Recorded ?Last Taken ?Type metformin 1,000 mg 24 hr 1,000 mg PO DAILY 10/08/15 0 10/08/15 History tablet,extended release (gastric reten.) Allergy/AdvReac Type Severity Reaction Status Date / Time diphenhydramine (From Allergy Anaphylaxis Verified 05/20/24 15:06 Benadryl) morphine Allergy Anaphylaxis Verified 05/20/24 15:06 vancomycin Allergy Anaphylaxis Verified 05/20/24 15:06 Social History (Updated 05/20/24 @ 15:[address] Kvng Pelaez MD) household members: none Smoking Status: Never smoker ROS ROS ED Constitutional Constitutional ED: Denies chills, fever(s), subjective, sweats or weight loss Eyes Eyes: Denies blurry vision or change in vision Cardiovascular Cardiovascular: Denies chest pain or palpitations Respiratory/Chest Respiratory/Chest: Denies cough, dyspnea or dyspnea on exertion Gastrointestinal Gastrointestinal: Reports abdominal pain, nausea and vomiting; Denies constipation, diarrhea or melena Genitourinary Genitourinary ED: Denies dysuria, hematuria or urinary frequency Musculoskeletal Musculoskeletal: Denies arthralgias, back pain or myalgias Integumentary Denies rash Hematologic/Lymphatic Hematologic/Lymphatic: Reports systems reviewed and no addt'l complaints, exceptas documented EXAM Physical Exam Const Vital Signs: 05/20/24 15:07 05/20/24 17:06 Temperature 96.1 F L Temperature Source Temporal Pulse Rate 53 L 62 Respiratory Rate 14 16 Blood Pressure 133/70 H 136/74 H Blood Pressure Mean 91 94 Pulse Ox 98 99 Oxygen Delivery Method Room Air Positive well nourished and well developed Constitutional Narrative: BMI 32.1. General Appearance ED: well developed and pallor; Negative for cyanotic, diaphoretic or NAD HEENT Reports dry mucous membranes Mouth ED: Yes dry mucous membranes Mouth: dry mucous membranes Eyes PERRL and EOMs intact bilaterally General Eye ED: Negative for pale conjunctiva or scleral icterus Neck no lymphadenopathy, supple and no JVD Resp normal respiratory effort and clear to auscultation bilaterally Cardio regular rate, regular rhythm, S1 normal heart sound, S2 normal heart sound and no murmurs GI GI Narrative: Patient has multiple well-healed scars. When patient Valsalvas on demand there is a bulge noted lateral horizontal inferior incision. There is a small defect. The hernia is reducible. There is no inflammation in the proximity of this bulge. There is no induration, erythema or warmth. There is no discoloration to suggest cyanosis. Auscultation: hypoactive bowel sounds Palpation: soft and tender other (Lateral inferior horizontal incision with small ventral hernia noted.) Back/Spine no CVA tenderness Extremity normal to inspection Neuro oriented x3 and CN's II-XII intact bilaterally Sensorium / Orientation: alert Psych mental status grossly normal Skin no rashes or lesions noted, no wounds and skin turgor normal General Skin Exam: elasticity normal and pallor; Negative for jaundice MDM MDM MDM Narrative Medical decision making narrative: Patient's nausea and vomiting may be due to gastroparesis and she has type 2 diabetes. The nausea vomiting be due to a viral infection. Based on history and physical exam I doubt this is due to obstruction from her reducible ventral hernia. Will obtain CBC to assess white count differential. Electrolyte panel assess glucose, CO2 anion gap and renal function since she has been vomiting states she cannot eat or drink any for the last 2 days. She was treated with Zofran for her nausea. Abdominal series was obtained to see if there is an abnormal bowel gas pattern. If any of her labs come back significantly abnormalmay consider advanced imaging i.e. CT of the abdomen and pelvis. History & Record Review Additional record(s) reviewed:: Prior inpatient record (2016 for change in vision. Discharge summary authored by Dr. Tena.) Lab Data Attestation: I reviewed the patient's lab results. Lab results narrative: CBC is unremarkable. Electrolyte panel is unremarkable. Labs: Laboratory Results - last 24 hr 05/20/24 16:03 WBC 6.1 RBC 4.35 Hgb 12.8 Hct 37.6 MCV 86.4 MCH 29.4 MCHC 34.0 RDW Std Deviation 40.4 RDW Coeff of Bobby 12.9 Plt Count 295 MPV 10.5 Immature Gran % (Auto) 0.200 Neut % (Auto) 54.9 Lymph % (Auto) 35.2 Early % (Auto) 6.1 Eos % (Auto) 2.8 Baso % (Auto) 0.8 Absolute Neuts (auto) 3.4 Absolute Lymphs (auto) 2.15 Nucleated RBC % 0 Sodium 139 Potassium 4.1 Chloride 107 Carbon Dioxide 20.5 L Anion Gap 12 BUN 10 Creatinine 0.56 L Estim Creat Clear Calc 105.77 Est GFR (MDRD) Non-Af 105 BUN/Creatinine Ratio 17.3 Glucose 93 Calcium 8.7 Radiography Chest X-Ray - ED: Read by ED Physician (Three-view abdominal series was obtained. The chest portion is negative with normal cardiac silhouette size. Lung parenchyma normal. Hilum is normal. Osseous trucks reveal some chronic changes. Patient has knots of a gas pattern on the abdominal portion. There isno evidence of pneumoperitoneu) Diagnostic Testing: Clinical Impression(s) from Imaging Studies Acute Abdomen Series 05/20/24 16:15 IMPRESSION: NO ACUTE FINDINGS Reading Location: [facility] Management Discussion w/another healthcare provider: Radiologist (Radiologist contacted me because of confusion of what was written regarding history of surgery. She was told the surgery was remote. This is a known hernia. My opinion is reducible but because she has had so much pain reports nausea and vomiting 1 to examine the bowel gas pattern. She agreed chris) Treatment and Re-Evaluation :: Patient was informed at 1811 that her workup is unremarkable. She be dischargedto home. She understands. She had no questions. Discharge Plan Triage Chief Complaint: Nausea/Vomiting ED Provider: Kvng Pelaez Dx/Rx/DC Orders Clinical Impression: Incisional hernia, without obstruction or gangrene, Type 2 diabetes mellitus, Nausea & vomiting, Sinus bradycardia, Elevated blood-pressure reading without diagnosis of hypertension Instructions: ED Hernia (Adult), ED Hypertension, To Be Confirmed Prescriptions: No Action metformin 1,000 MG tablet,ER jane.retention 24 hr 1,000 mg PO DAILY Patient Comments: diabetes Primary Care Provider: Emma Harmon Referrals: Emma Harmon DO [Primary Care Provider] - 1-2 Weeks Care Physician,No Primary [Non-Staff] - Activity Restrictions/Additional Instructions: Your blood pressure readings have been elevated. You need to follow-up with your doctor to have your blood pressure rechecked in 1 to 2 weeks. Print Language: Liberian Disposition Disposition: Home, Self Care What to do if you have Problems For any increased pain, shortness of breath, bleeding, nausea or vomiting, chestpain, or any unexpected problems, contact your Primary Care Provider. Call [facility] ([phone]) or report to the closest Emergency Room. Call 911 if necessary. 05/20/24 1820 <Electronically signed by Kvng Pelaez MD> Cosigner Signature (if applicable): CC: Dr. Emma Harmon DO ~ Signed [facility] Work Phone: 1(889) 259-728211-20-2024 Evaluation + Plan noteExtracted from: Title:Clinical Document Author:MARIANA BROOKS ate:01/20/24 SUPERIOR ADMISSION HISTORY AN D PHYSICIAL CHIEF COMPLAINT: Colorectal cancer screening HISTORY OF PRESENT ILLNESS: Colorectal cancer screening, last colonoscopy more than 10 years ago REVIEW OF SYSTEMS: Constitutional: denies weight loss Cardiovascular:denies chest pain, palpitations Respiratory:denies shortness of breath Gastrointestinal:no abd pain Musculoskeletal: no arthralgias Skin: no rashes ACTIVE PROBLEMS: (53) Anxiety (74683304) Aortic atherosclerosis (563700615) Back pain (762701867) Bilateral adhesive capsulitis of shoulders (6882155143) Bilateral shoulder pain (87440847) Blood in stool (3479331516) BMI 32.0-32.9,adult (113593177) Bradycardia, sinus (92699663) Constipation (17924933) Diabetic peripheral vascular disease (4089981745) Diarrhea (078871279) Diverticulosis (6915445395) Easy bruising (4939391744) Hair thinning (804205018) Hepatic steatosis (562899717) HTN (hypertension) (7321410789) Hypertension associated with type 2 diabetes mellitus (8778633195) Hypothyroidism (01097641) 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) Immunization due (153138485) Insomnia (172904045) Iron deficiency (15132629) Major depression, recurrent (463742264) Medicare annual wellness visit, subsequent (019411647) Memory change (0380213164) Moodiness (693800772) Nephrolithiasis (641958706) Non-tobacco user (093829936) Obese (7732286669) Pain in the abdomen (42818115) Pancreatic cyst (92092417) Panic attacks (599919813) Peripheral vascular disease (5712488002) Postmenopausal (885364441) Preop examination (042862829) Right shoulder pain (19204687) Rosacea (0245850262) S/P bariatric surgery (9228621199) S/P colon resection (7324673268) S/P hernia repair (3383782335) S/P hysterectomy (875646835) Screen for colon cancer (487714152) Screening due (047281123) Screening for breast cancer (479388697) Screening for osteoporosis (487994199) Seizure disorder (215117946) Snoring (029347868) Somatic dysfunction of rib region (5205083353) Thoracic aortic aneurysm (5064993385) Upper respiratory virus (039507277) Ventral hernia (3227484886) Vitamin B 12 deficiency (819138347) Vitamin D deficiency (60962260) MEDICATIONS: Active Inpt Meds: None Active PRN Meds: None One Time Meds: None Active IV Meds: None ALLERGIES: (4) Benadryl morphine vancomycin Vicodin FAMILY HISTORY: SOCIAL HISTORY: PHYSICAL EXAM: VITALS: No Data Available 24 Hr Tmax: No Data Available 36 Hr Tmax: No Data Available Vital Signs are the last 5 in the past 48 hours. Weights display the last 5 within 7 days. Initial Wt: No Data Available Current Wt: No Data Available physical exam alert and oriented cardio; regular without murmur pulm; clear abd; soft, nontender LABS: No 36hr Lab Data DIAGNOSTICS: IMPRESSION: Colorectal cancer screening PLAN: Colonoscopy as discussed in the office Future Appointments Appointment Date:02/12/2024 09:30:00 AM Scheduled Provider:EMMA HARMON DO Location:[facility] 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:PC OV Future Scheduled Tests Laboratory* Vitamin B1 (Thiamine), Blood 11/12/23 * Ferritin 11/12/23 * Folate Level 11/12/23 * Thyroid Stimulating Hormone 11/12/23 * Free T4 11/12/23 * Vitamin B12 Level 11/12/23 * A1C Hemoglobin 11/12/23 * Complete Blood Count 11/12/23 * Lipid Profile 11/12/23 * Albumin/Creatinine Ratio, Random Urine 11/12/23 * Complete Metabolic Panel 11/12/23 * [facility] Lab Send out (Blood Specimens) 11/12/23 Radiology* MA Mammo Screening Bilateral w/ Saji 09/08/23 * MA Mammo Screening Bilateral w/ Saji 11/24/23 * BD Bone Density DEXA Axial Skeleton 09/08/23 * CT Angiography Chest w/ Contrast 03/07/24 * MRI MRCP 04/02/23 [facility] 11-20-2024 Hospital Discharge instructions Patient Education 01/20/2024 09:50:31 Colon Biopsy, Care After Colon Biopsy, Care After This sheet gives you information about how to care for yourself after your procedure. Your health care provider may also give you more specific instructions. If you have problems or questions, contact your health care provider. What can I expect after the procedure? After the procedure, it is common to have: A small amount of blood in your stool for 24 hours after the procedure. Some gas. Mild cramping or bloating in your abdomen. Follow these instructions at home: General instructions For the first 24 hours after the procedure: ?Do not drive or use machinery. ?Do not sign important documents. ?Do not drink alcohol. ?Do your regular daily activities at a slower pace than normal. ?Eat soft, kfbn-go-rariij foods. ?Rest often. Take rnxn-ttx-hhilvnj or prescription medicines only as told by your health care provider. Keep all follow-up visits as told by your health care provider. This is important. Relieving cramping and bloating Try walking around when you have cramps or feel bloated. Put heat on your abdomen as told by your health care provider. Use a heat source that your health care provider recommends, such as a moist heat pack or a heating pad. ?Place a towel between your skin and the heat source. ?Leave the heat on for 20 30 minutes. ?Remove the heat if your skin turns bright red. This is especially important if you are unable to feel pain, heat, or cold. You may have a greater risk of getting burned. Eating and drinking Drink enough fluid to keep your urine pale yellow. Return to your normal diet as instructed by your health care provider. Avoid heavy or fried foods that are hard to digest. Avoid drinking alcohol for as long as told by your health care provider. Contact a health care provider if: You have blood in your stool 2 3 days after the procedure. Get help right away if: You have more than a small spotting of blood in your stool. You pass large blood clots in your stool. Your abdomen is swollen. You have nausea or vomiting. You have a fever. You have increasing abdominal pain that is not relieved with medicine. Summary After the procedure, it is common to have mild cramping and bloating in the abdomen. Do not drive for 24 hours after the procedure. Try walking around when you have cramps or feel bloated. This information is not intended to replace advice given to you by your health care provider. Make sure you discuss any questions you have with your health care provider. Document Released: 07/28/2017 Document Revised: 01/29/2018 Document Reviewed: 07/28/2017 [employer] Patient Education 2020 [employer]. 01/20/2024 09:50:04 Monitored Anesthesia Care, Care After Monitored Anesthesia Care, Care After These instructions provide you with information about caring for yourself after your procedure. Your health care provider may also give you more specific instructions. Your treatment has been plannedaccording to current medical practices, but problems sometimes occur. Call your health care provider if you have any problems or questions after your procedure. What can I expect after the procedure? After your procedure, you may: Feel sleepy for several hours. Feel clumsy and have poor balance for several hours. Feel forgetful about what happened after the procedure. Have poor judgment for several hours. Feel nauseous or vomit. Have a sore throat if you had a breathing tube during the procedure. Follow these instructions at home: For at least 24 hours after the procedure: Have a responsible adult stay with you. It is important to have someone help care for you until youare awake and alert. Rest as needed. Do not: ?Participate in activities in which you could fall or become injured. ?Drive. ?Use heavy machinery. ?Drink alcohol. ?Take sleeping pills or medicines that cause drowsiness. ?Make important decisions or sign legal documents. ?Take care of children on your own. Eating and drinking Follow the diet that is recommended by your health care provider. If you vomit, drink water, juice, or soup when you can drink without vomiting. Make sure you have little or no nausea before eating solid foods. General instructions Take jdza-dbu-diqvztd and prescription medicines only as told by your health care provider. If you have sleep apnea, surgery and certain medicines can increase your risk for breathing problems. Follow instructions from your health care provider about wearing your sleep device: ?Anytime you are sleeping, including during daytime naps. ?While taking prescription pain medicines, sleeping medicines, or medicines that make you drowsy. If you smoke, do not smoke without supervision. Keep all follow-up visits as told by your health care provider. This is important. Contact a health care provider if: You keep feeling nauseous or you keep vomiting. You feel light-headed. You develop a rash. You have a fever. Get help right away if: You have trouble breathing. Summary For several hours after your procedure, you may feel sleepy and have poor judgment. Have a responsible adult stay with you for at least 24 hours or until you are awake and alert. This information is not intended to replace advice given to you by your health care provider. Make sure you discuss any questions you have with your health care provider. Document Released: 06/08/2016 Document Revised: 05/17/2018 Document Reviewed: 06/08/2016 [employer] Patient Education 2020 [employer]. 01/20/2024 09:49:53 Colon Polyps Colon Polyps Polyps are tissue growths inside the body. Polyps can grow in many places, including the large intestine (colon). A polyp may be a round bump or a mushroom-shaped growth. You could have one polyp or several. Most colon polyps are noncancerous (benign). However, some colon polyps can become cancerous over time. Finding and removing the polyps early can help prevent this. What are the causes? The exact cause of colon polyps is not known. What increases the risk? You are more likely to develop this condition if you: Have a family history of colon cancer or colon polyps. Are older than 50 or older than 45 if you are . Have inflammatory bowel disease, such as ulcerative colitis or Crohn's disease. Have certain hereditary conditions, such as: ?Familial adenomatous polyposis. ?Spencer syndrome. ?Turcot syndrome. ?Peutz Jeghers syndrome. Are overweight. Smoke cigarettes. Do not get enough exercise. Drink too much alcohol. Eat a diet that is high in fat and red meat and low in fiber. Had childhood cancer that was treated with abdominal radiation. What are the signs or symptoms? Most polyps do not cause symptoms. If you have symptoms, they may include: Blood coming from your rectum when having a bowel movement. Blood in your stool. The stool may look dark red or black. Abdominal pain. A change in bowel habits, such as constipation or diarrhea. How is this diagnosed? This condition is diagnosed with a colonoscopy. This is a procedure in which a lighted, flexible scope is inserted into the anus and then passed into the colon to examine the area. Polyps are sometimes found when a colonoscopy is done as part of routine cancer screening tests. How is this treated? Treatment for this condition involves removing any polyps that are found. Most polyps can be removed during a colonoscopy. Those polyps will then be tested for cancer. Additional treatment may be needed depending on the results of testing. Follow these instructions at home: Lifestyle Maintain a healthy weight, or lose weight if recommended by your health care provider. Exercise every day or as told by your health care provider. Do not use any products that contain nicotine or tobacco, such as cigarettes and e-cigarettes. If you need help quitting, ask your health care provider. If you drink alcohol, limit how much you have: ?0 1 drink a day for women. ? 0 2 drinks a day for men. Be aware of how much alcohol is in your drink. In the [place] one drink equals one 12 oz bottle of beer (355 mL), one 5 oz glass of wine (148 mL), or one 1 oz shot of hard liquor (44 mL). Eating and drinking Eat foods that are high in fiber, such as fruits, vegetables, and whole grains. Eat foods that are high in calcium and vitamin D, such as milk, cheese, yogurt, eggs, liver, fish, and broccoli. Limit foods that are high in fat, such as fried foods and desserts. Limit the amount of red meat and processed meat you eat, such as hot dogs, sausage, farah, and lunch meats. General instructions Keep all follow-up visits as told by your health care provider. This is important. ?This includes having regularly scheduled colonoscopies. ?Talk to your health care provider about when you need a colonoscopy. Contact a health care provider if: You have new or worsening bleeding during a bowel movement. You have new or increased blood in your stool. You have a change in bowel habits. You lose weight for no known reason. Summary Polyps are tissue growths inside the body. Polyps can grow in many places, including the colon. Most colon polyps are noncancerous (benign), but some can become cancerous over time. This condition is diagnosed with a colonoscopy. Treatment for this condition involves removing any polyps that are found. Most polyps can be removed during a colonoscopy. This information is not intended to replace advice given to you by your health care provider. Make sure you discuss any questions you have with your health care provider. Document Released: 11/12/2004 Document Revised: 06/03/2018 Document Reviewed: 06/03/2018 [employer] Patient Education 2020 [employer] 01/20/2024 09:49:29 Diverticulosis Diverticulosis Diverticulosis is a condition that develops when small pouches (diverticula) form in the wall of the large intestine (colon). The colon is where water is absorbed and stool is formed. The pouches form when the inside layer of the colon pushes through weak spots in the outer layers of the colon. Youmay have a few pouches or many of them. What are the causes? The cause of this condition is not known. What increases the risk? The following factors may make you more likely to develop this condition: Being older than age 60. Your risk for this condition increases with age. Diverticulosis is rare among people younger than age 30. By age 80, many people have it. Eating a low-fiber diet. Having frequent constipation. Being overweight. Not getting enough exercise. Smoking. Taking oysr-opr-cmdydpi pain medicines, like aspirin and ibuprofen. Having a family history of diverticulosis. What are the signs or symptoms? In most people, there are no symptoms of this condition. If you do have symptoms, they may include: Bloating. Cramps in the abdomen. Constipation or diarrhea. Pain in the lower left side of the abdomen. How is this diagnosed? This condition is most often diagnosed during an exam for other colon problems. Because diverticulosis usually has no symptoms, it often cannot be diagnosed independently. This condition may be diagnosed by: Using a flexible scope to examine the colon (colonoscopy). Taking an X-ray of the colon after dye has been put into the colon (barium enema). Doing a CT scan. How is this treated? You may not need treatment for this condition if you have never developed an infection related to diverticulosis. If you have had an infection before, treatment may include: Eating a high-fiber diet. This may include eating more fruits, vegetables, and grains. Taking a fiber supplement. Taking a live bacteria supplement (probiotic). Taking medicine to relax your colon. Taking antibiotic medicines. Follow these instructions at home: Drink 6 8 glasses of water or more each day to prevent constipation. Try not to strain when you have a bowel movement. If you have had an infection before: ?Eat more fiber as directed by your health care provider or your diet and philosophy specialist (dietitian). ?Take a fiber supplement or probiotic, if your health care provider approves. Take hmpu-kwy-ligvyrj and prescription medicines only as told by your health care provider. If you were prescribed an antibiotic, take it as told by your health care provider. Do not stop taking the antibiotic even if you start to feel better. Keep all follow-up visits as told by your health care provider. This is important. Contact a health care provider if: You have pain in your abdomen. You have bloating. You have cramps. You have not had a bowel movement in 3 days. Get help right away if: Your pain gets worse. Your bloating becomes very bad. You have a fever or chills, and your symptoms suddenly get worse. You vomit. You have bowel movements that are bloody or black. You have bleeding from your rectum. Summary Diverticulosis is a condition that develops when small pouches (diverticula) form in the wall of the large intestine (colon). You may have a few pouches or many of them. This condition is most often diagnosed during an exam for other colon problems. If you have had an infection related to diverticulosis, treatment may include increasing the fiber in your diet, taking supplements, or taking medicines. This information is not intended to replace advice given to you by your health care provider. Make sure you discuss any questions you have with your health care provider. Document Released: 11/13/2004 Document Revised: 01/29/2018 Document Reviewed: 01/05/2017 [employer] Patient Education 2020 [employer]. 01/20/2024 09:48:51 Colonoscopy, Adult, Care After, Ghtl-ez-Wrzc Colonoscopy, Adult, Care After This sheet gives you information about how to care for yourself after your procedure. Your doctor may also give you more specific instructions. If you have problems or questions, call your doctor. What can I expect after the procedure? After the procedure, it is common to have: A small amount of blood in your poop for 24 hours. Some gas. Mild cramping or bloating in your belly. Follow these instructions at home: General instructions For the first 24 hours after the procedure: ?Do not drive or use machinery. ?Do not sign important documents. ?Do not drink alcohol. ?Do your daily activities more slowly than normal. ?Eat foods that are soft and easy to digest. Take tfoi-wtn-elpyqdj or prescription medicines only as told by your doctor. To help cramping and bloating: Try walking around. Put heat on your belly (abdomen) as told by your doctor. Use a heat source that your doctor recommends, such as a moist heat pack or a heating pad. ?Put a towel between your skin and the heat source. ?Leave the heat on for 20 30 minutes. ?Remove the heat if your skin turns bright red. This is especially important if you cannot feel pain, heat, or cold. You can get burned. Eating and drinking Drink enough fluid to keep your pee (urine) clear or pale yellow. Return to your normal diet as told by your doctor. Avoid heavy or fried foods that are hard to digest. Avoid drinking alcohol for as long as told by your doctor. Contact a doctor if: You have blood in your poop (stool) 2 3 days after the procedure. Get help right away if: You have more than a small amount of blood in your poop. You see large clumps of tissue (blood clots) in your poop. Your belly is swollen. You feel sick to your stomach (nauseous). You throw up (vomit). You have a fever. You have belly pain that gets worse, and medicine does not help your pain. Summary After the procedure, it is common to have a small amount of blood in your poop. You may also have mild cramping and bloating in your belly. For the first 24 hours after the procedure, do not drive or use machinery, do not sign important documents, and do not drink alcohol. Get help right away if you have a lot of blood in your poop, feel sick to your stomach, have a fever, or have more belly pain. This information is not intended to replace advice given to you by your health care provider. Make sure you discuss any questions you have with your health care provider. Document Released: 03/21/2011 Document Revised: 12/17/2017 Document Reviewed: 11/10/2016 [employer] Patient Education 2020 [employer]. Follow Up Care 01/14/2024 09:38:50 With:MARIANA BROOKS DO, Clinical Gastroenterology Address: [address] [facility] [place] [address]- [phone] When: Unknown Comments:CALL DR BROOKS WITH ANY QUESTIONS OR CONCERNS. GO TO THE EMERGENCY ROOM WITH ANY URGENT CONCERNS. A CECAL POLYP BIOPSY WAS PERFORMED AND SENT TO THE LAB. YOUR NEXT COLONOSCOPY SHOULD BE DONE IN 8 YEARSOR SOONER IF YOU HAVE CONCERNING SYMPTOMS. With:EMMA HARMON DO Address: [address] [facility] [phone] When: Unknown [facility] 11-20-2024 Anesthesiology Consult note Patient: AYALA ARANDA [facility]: [id number] Age: 58 years Sex: Female : 1965 Associated Diagnoses: None Author: CHIQUI BRANNON COPYMAN-ASSOCIATE PROFESSOR OF CHEMISTRY Preoperative Information Time of last food or liquid consumption: 01/20/2024 05:00:00 Anesthesia history Patient's history: negative. Family's history: negative. Review of Systems Respiratory: smoker. Cardiovascular: htn, PVD, thoracic AAA. Gastrointestinal: Reflux, obese. Endocrine: dm. Musculoskeletal: Back pain. Neurologic: seizures. Health Status Allergies: Allergic Reactions (Selected) Severity Not Documented Benadryl- Throat tightness. Morphine- Throat tightness. Vancomycin- Throat symptom. Vicodin- No reactions were documented., Allergies (4) ActiveSeverityReaction VicodinNone Documented vancomycinThroat symptom morphineThroat tightness BenadrylThroat tightness Current medications: (Selected) Inpatient Medications Ordered Lactated Ringers Infusion 1,000 mL: 20 mL/hr, Intravenous Normal Saline 500 mL 500 mL: 20 mL/hr, Intravenous Prescriptions Prescribed Co Q-10 100 mg oral capsule: 100 mg, 1 cap(s), Oral, Daily, 90 cap(s), 1 Refill(s) DME MISCellaneous: See Instructions, dispense one sling and swath; dx M75.100, 1 EA, 0 Refill(s) DME MISCellaneous: See Instructions, dx I10; dispense one automated sphygmomanometer with supplies., 1 EA, 0 Refill(s) DOK 100 mg oral capsule: 100 mg, 1 cap(s), Oral, BID, for 90 day(s), 180 cap(s), 1 Refill(s) MiraLax oral powder for reconstitution: 17 gram(s), Oral, BID, for 30 day(s), 1,020 gram(s), 1 Refill(s) OLANZapine 5 mg oral tablet: 5 mg, 1 tab(s), Oral, qHS, for 30 day(s), 30 tab(s), 0 Refill(s) PEG-3350 with Electrolytes (Eqv-GoLYTELY) oral powder for reconstitution: See Instructions, Take asdirected starting 1 day before colonoscopy. Follow instructions as provided by your GI provider at [place]., 1 EA, 0 Refill(s) Vitamin B12 1000 mcg oral tablet: 1,000 mcg, 1 tab(s), Oral, qDay, for 90 day(s), 90 tab(s), 1 Refill(s) biotin 1000 mcg oral tablet: 1,000 mcg, 1 tab(s), Oral, qDay, for 90 day(s), 90 tab(s), 1 Refill(s) cholecalciferol 50 mcg (2000 intl units) oral capsule: 100 mcg, 2 cap(s), Oral, qDay, for 90 day(s), 180 cap(s), 1 Refill(s) dicyclomine 20 mg oral tablet: 20 mg, 1 tab(s), Oral, QID, for 30 day(s), PRN: abdominal pain/diarrhea, 120 tab(s), 0 Refill(s) ferrous sulfate 325 mg (65 mg elemental iron) oral tablet: 325 mg, 1 tab(s), Oral, BID, for 90 day(s), Take with food., 180 tab(s), 1 Refill(s) hydrOXYzine hydrochloride 25 mg oral tablet: 25 mg, 1 tab(s), Oral, QID, for 30 day(s), PRN: Panic attacks, 120 tab(s), 2 Refill(s) lactobacillus acidophilus oral tablet: 1 tab(s), Oral, qDay, for 90 day(s), 90 tab(s), 1 Refill(s) levothyroxine 112 mcg (0.112 mg) oral tablet: 112 mcg, 1 tab(s), Oral, qDay, 90 tab(s), 1 Refill(s) losartan 25 mg oral tablet: 25 mg, 1 tab(s), Oral, qDay, for 90 day(s), 90 tab(s), 1 Refill(s) rosuvastatin 20 mg oral tablet: 20 mg, 1 tab(s), Oral, qHS, for 90 day(s), 90 tab(s), 1 Refill(s) sertraline 100 mg oral tablet: 150 mg, 1.5 tab(s), Oral, qDay, for 90 day(s), 135 tab(s), 1 Refill(s) zolpidem 5 mg oral tablet: 5 mg, 1 tab(s), Oral, qHS, for 30 day(s), fill on or after 12/10/2023, PRN: as needed for sleep, 30 tab(s), 2 Refill(s) Documented Medications Documented Multivitamin: 1 tab(s), Oral, Daily, 0 Refill(s) aspirin 81 mg oral delayed release tablet: 81 mg, 1 tab(s), Oral, Daily, 0 Refill(s) levETIRAcetam 500 mg oral tablet: 500 mg, 1 tab(s), Oral, BID, 180 tab(s), 0 Refill(s), Medications (2) Active Scheduled: (0) Continuous: (2) Lactated Ringers Infusion 1,000 mL 1,000 mL, Intravenous, 20 mL/hr Sodium Chloride 0.9% intravenous solution 500 mL 500 mL, Intravenous, 20 mL/hr PRN: (0) Problem list: Medical Pain in the abdomen / SNOMED CT 03553760 / Confirmed Bilateral adhesive capsulitis of shoulders / SNOMED CT 2472802857 / Confirmed Thoracic aortic aneurysm / SNOMED CT 7281725771 / Confirmed Anxiety / SNOMED CT 91568795 / Confirmed Aortic atherosclerosis / SNOMED CT 524341642 / Confirmed Back pain / SNOMED CT 331664552 / Confirmed BMI 32.0-32.9,adult / SNOMED CT 913588231 / Confirmed Easy bruising / SNOMED CT 7321332606 / Confirmed Vitamin B 12 deficiency / SNOMED CT 079486878 / Confirmed Constipation / SNOMED CT 62613299 / Confirmed Pancreatic cyst / SNOMED CT 29259274 / Confirmed Diarrhea / SNOMED CT 115058505 / Confirmed Idiopathic dilatation of pulmonary artery / SNOMED CT 672482061 / Confirmed Diverticulosis / SNOMED CT 0257843228 / Confirmed S/P hysterectomy / SNOMED CT 172134580 / Confirmed Blood in stool / SNOMED CT 0314381681 / Confirmed Ventral hernia / SNOMED CT 4194793537 / Confirmed S/P bariatric surgery / SNOMED CT 4204548159 / Confirmed S/P colon resection / SNOMED CT 9064290978 / Confirmed S/P hernia repair / SNOMED CT 7594750927 / Confirmed HTN (hypertension) / SNOMED CT 5264525099 / Confirmed Hypertension associated with type 2 diabetes mellitus / SNOMED CT 1141455791 / Confirmed Hypothyroidism / SNOMED CT 83891349 / Confirmed Immunization due / SNOMED CT 915414015 / Confirmed Insomnia / SNOMED CT 702255441 / Confirmed Iron deficiency / SNOMED CT 38041721 / Confirmed Nephrolithiasis / SNOMED CT 094139619 / Confirmed Hair thinning / SNOMED CT 600236272 / Confirmed Memory change / SNOMED CT 1427625264 / Confirmed Moodiness / SNOMED CT 604787738 / Confirmed Obese / SNOMED CT 9507305237 / Confirmed Panic attacks / SNOMED CT 470595435 / Confirmed Preop examination / SNOMED CT 164603997 / Confirmed Screening for breast cancer / SNOMED CT 425332404 / Confirmed Screen for colon cancer / SNOMED CT 609385670 / Confirmed Screening for osteoporosis / SNOMED CT 317771288 / Confirmed Medicare annual wellness visit, subsequent / SNOMED CT 491461231 / Confirmed Peripheral vascular disease / SNOMED CT 5482445533 / Confirmed Diabetic peripheral vascular disease / SNOMED CT 8084795704 / Confirmed Postmenopausal / SNOMED CT 532782469 / Confirmed Major depression, recurrent / SNOMED CT 325642160 / Confirmed Rosacea / SNOMED CT 1714573607 / Confirmed Screening due / SNOMED CT 820966822 / Confirmed Seizure disorder / SNOMED CT 917999360 / Confirmed Right shoulder pain / SNOMED CT 80427252 / Confirmed Bilateral shoulder pain / SNOMED CT 89317554 / Confirmed Bradycardia, sinus / SNOMED CT 27231137 / Confirmed Snoring / SNOMED CT 457215414 / Confirmed Somatic dysfunction of rib region / SNOMED CT 8636518804 / Confirmed Hepatic steatosis / SNOMED CT 060777544 / Confirmed Non-tobacco user / SNOMED CT 425268681 / Confirmed Upper respiratory virus / SNOMED CT 612496325 / Confirmed Vitamin D deficiency / SNOMED CT 91070093 / Confirmed, Active Problems (53) Anxiety Aortic atherosclerosis Back pain Bilateral adhesive capsulitis of shoulders Bilateral shoulder pain Blood in stool BMI 32.0-32.9,adult Bradycardia, sinus Constipation Diabetic peripheral vascular disease Diarrhea Diverticulosis Easy bruising Hair thinning Hepatic steatosis HTN (hypertension) Hypertension associated with type 2 diabetes mellitus Hypothyroidism Idiopathic dilatation of pulmonary artery Immunization due Insomnia Iron deficiency Major depression, recurrent Medicare annual wellness visit, subsequent Memory change Moodiness Nephrolithiasis Non-tobacco user Obese Pain in the abdomen Pancreatic cyst Panic attacks Peripheral vascular disease Postmenopausal Preop examination Right shoulder pain Rosacea S/P bariatric surgery S/P colon resection S/P hernia repair S/P hysterectomy Screen for colon cancer Screening due Screening for breast cancer Screening for osteoporosis Seizure disorder Snoring Somatic dysfunction of rib region Thoracic aortic aneurysm Upper respiratory virus Ventral hernia Vitamin B 12 deficiency Vitamin D deficiency Histories Past Medical History: No active or resolved past medical history items have been selected or recorded. Family History: Emphysema Mother Heart disease Mother Stroke Father Procedure history: Gastric bypass ([id number]) on 02/12/2018 at 52 Years. Hernia ([id number]). Comments: 12/15/2018 15:01 Dora Maher LPN repair x3 Hysterectomy ([id number]). Comments: 12/15/2018 15:01 Dora Maher LPN total Cholecystectomy ([id number]). Back ([id number]). Comments: 12/15/2018 15:02 Dora Maher LPN 3 surgeries Neck ([id number]). Colon ([id number]). Comments: 12/15/2018 15:02 Dora Maher LPN 6 inches removed due to infection Colonoscopy ([id number]). Social History: Social & Psychosocial Habits Alcohol 01/20/2024 Use: Never Substance Abuse 01/20/2024 Use: Never Tobacco 01/20/2024 Tobacco Use: Never (less than 100 in l Home/Environment 01/20/2024 Other risks in environment: minimal smoke exposure Nutrition/Health 01/20/2024 Type of diet: Regular Caffeine intake amount: 2 SERVINGS DAILY Physical Examination Vital Signs 01/20/2024 9:36 EST Temperature Temporal Artery 36.2 DegC Heart Rate Monitored 50 bpm LOW Respiratory Rate 16 br/min Systolic Blood Pressure Non-Invasive 114 mmHg Diastolic Blood Pressure Non-Invasive 68 mmHg 01/20/2024 9:35 EST Heart Rate Monitored 52 bpm bpm Respiratory Rate - Anes 20 br/min br/min Systolic Blood Pressure Non-Invasive 110 mmHg mmHg Diastolic Blood Pressure Non-Invasive 61 mmHg mmHg 01/20/2024 9:30 EST Heart Rate Monitored 53 bpm bpm Respiratory Rate - Anes 20 br/min br/min Systolic Blood Pressure Non-Invasive 122 mmHg mmHg Diastolic Blood Pressure Non-Invasive 58 mmHg mmHg 01/20/2024 9:25 EST Heart Rate Monitored 58 bpm bpm Respiratory Rate - Anes 13 br/min br/min Systolic Blood Pressure Non-Invasive 147 mmHg mmHg Diastolic Blood Pressure Non-Invasive 73 mmHg mmHg 01/20/2024 9:11 EST Temperature Temporal Artery 36.5 DegC Apical Heart Rate 54 bpm LOW Respiratory Rate 14 br/min Systolic Blood Pressure Non-Invasive 148 mmHg HI Diastolic Blood Pressure Non-Invasive 71 mmHg Vital Signs (last 24 hrs) Last Charted Temp [id number] DegC (JAN 19) Heart Rate MonitoredL 50 bpm (JAN 19) UWD064 mmHg (JAN 19:) DBP68 mmHg (JAN 19) Measurements from flowsheet : Measurements 01/20/2024 9:11 EST Height 154.94 cm Admission Weight 72.73 kg [place] Body Weight 47.80 kg Admission Body Mass Index 30.3 m2 Pain assessment: Pain Assessment 01/20/2024 9:36 EST Primary Pain Nonverbal Response Appears restful Pain Scale Type Behavioral pain scale 01/20/2024 9:11 EST Primary Pain Location Abdomen Abdominal Pain Location RLQ Primary Pain Intensity 6 Pain Scale Type 0-10 Pain scale . Review / Management Results review: No qualifying data available , Lab results 01/20/2024 9:39 EST Patient Instructions Documentation Patient Instructions Documentation 01/20/2024 9:37 EST SN - CTm - Anesthesia Stop Time Anesthesia Stop Anesthesia Final Record OP Colonoscopy 01/20/2024 9:37 EST Lactated Ringers Injection 200 mL mL Colonoscopy Procedure Note 01/20/2024 9:36 EST Temperature Temporal Artery 36.2 DegC Heart Rate Monitored 50 bpm LOW Respiratory Rate 16 br/min Systolic Blood Pressure Non-Invasive 114 mmHg Diastolic Blood Pressure Non-Invasive 68 mmHg Primary Pain Nonverbal Response Appears restful Pain Scale Type Behavioral pain scale Nail Bed Color [place] Capillary Refill < 2 seconds Heart Rhythm Regular Cardiac Rhythm Sinus bradycardia Alarms On and Functional Yes Respirations Unlabored Respiratory Pattern Regular Oxygen Therapy Nasal cannula 0L-6L Oxygen Saturation 97 % Oxygen Flow Rate 2 L/min Abdomen Description Non-distended, Soft All Extremity Description [place] Temperature All Extremities Warm Level of Consciousness Arousable with minimal stimulation Patient Identified Identification band, Verbal Arrival Mode Stretcher Position Lateral, left side down Provider Name CHIQUI BRANNON COPYMAN-ASSOCIATE PROFESSOR OF CHEMISTRY Transported From Endoscopy Anesthesia Summary Review Yes - verbal Surgical Summary Review Yes - verbal Pertinent PMHx Review Yes - verbal Standard Safety Safety level maintained [facility] Procedure Record [facility] Procedure Record 01/20/2024 9:35 EST Heart Rate Monitored 52 bpm bpm Respiratory Rate - Anes 20 br/min br/min Systolic Blood Pressure Non-Invasive 110 mmHg mmHg Diastolic Blood Pressure Non-Invasive 61 mmHg mmHg Oxygen Saturation 97.1 % % 01/20/2024 9:34 EST propofol 30 mg mg 01/20/2024 9:32 EST SN - Proc - Actual Procedure COLONOSCOPY WITH POLYPECTOMY (Modified) 01/20/2024 9:30 EST SN - Cul - Culture Type Tissue in Formalin SN - Cul - Kind Specimen 01/20/2024 9:30 EST Heart Rate Monitored 53 bpm bpm Respiratory Rate - Anes 20 br/min br/min Systolic Blood Pressure Non-Invasive 122 mmHg mmHg Diastolic Blood Pressure Non-Invasive 58 mmHg mmHg Oxygen Saturation 96.2 % % propofol 30 mg mg 01/20/2024 9:25 EST Heart Rate Monitored 58 bpm bpm Respiratory Rate - Anes 13 br/min br/min Systolic Blood Pressure Non-Invasive 147 mmHg mmHg Diastolic Blood Pressure Non-Invasive 73 mmHg mmHg Oxygen Saturation 97 % % propofol 100 mg mg 01/20/2024 9:24 EST SN - CTm - Anesthesia Start Time Anesthesia Start 01/20/2024 9:24 EST SN - GCD - ASA Class 3 01/20/2024 9:24 EST lidocaine 100 mg mg Lactated Ringers Injection Begin Bag 1,000 mL mL 01/20/2024 9:20 EST SN - Proc - Anesthesia Type MAC SN - Proc - EBL 0 mL 01/20/2024 9:20 EST SN - PP - Body Position Lateral Right Side-up Standard Intra-op 01/20/2024 9:20 EST SN - GCD - Post-operative Diagnosis SCREENING SN - GCD - Case Level OPD Level 3 01/20/2024 9:20 EST SN - CAt - Case Attendee SN - CAt - Case Attendee SN - CAt - Case Attendee SN - CAt - Case Attendee SN - CAt - Case Attendee SN - CAt - Case Attendee SN - CAt - Case Attendee SN - CAt - Case Attendee SN - CAt - Role Performed Primary Surgeon SN - CAt - Role Performed Home Companion 1 SN - CAt - Role Performed [place] Top Hat Body Maker SN - CAt - Role Performed ASSOCIATE PROFESSOR OF CHEMISTRY 01/20/2024 9:20 EST Sodium Chloride 0.9% Begin Bag 500 mL mL 01/20/2024 9:19 EST Continuous IV Infusions NS Hand Right 01/20/2024 22 gauge Peripheral IV Activity: Insert new site Peripheral IV Site Condition: No complications Peripheral IV Number of Attempts: 1 01/20/2024 9:11 EST Height 154.94 cm Admission Weight 72.73 kg [place] Body Weight 47.80 kg Admission Body Mass Index 30.3 m2 Temperature Temporal Artery 36.5 DegC Apical Heart Rate 54 bpm LOW Respiratory Rate 14 br/min Systolic Blood Pressure Non-Invasive 148 mmHg HI Diastolic Blood Pressure Non-Invasive 71 mmHg Primary Pain Location Abdomen Abdominal Pain Location RLQ Primary Pain Intensity 6 Pain Scale Type 0-10 Pain scale Heart Rhythm Regular Respirations Unlabored Respiratory Pattern Regular All Lobes Breath Sounds Clear Cough None Oxygen Therapy Room air Oxygen Saturation 93 % Abdomen Description Non-distended, Soft Swallowing Disorder None Urinary Elimination Voiding, no difficulties Skin Temperature Warm Skin Description [place], Normal for ethnicity, Dry Skin Integrity Intact Skin Moisture General Dry IV Present Present Extremity Movement Equal Characteristics of Speech Clear Level of Consciousness Alert Strength All Extremities Strong Tone All Extremities Normal Sensation All Extremities Intact Affect/Behavior Appropriate, Calm, Cooperative Orientation Oriented x 4 Allergies Yes Anesthesia Extension Set Applied Yes Semiconductor Processor On Yes Colon Prep Results Excellent Consent Form Signed Yes Patient Dressed In Hospital gown History & Physical Update On Chart Yes History & Physical On Chart Yes Obstructive Sleep Apnea Assess Completed Yes Orientation Assessment Oriented x 4 Assistive Device None Positioning Repositions self Up to Chair Up to chair NPO Status Maintained Standard Safety ID band on, Allergy Band on, Call device within reach, Bed in low position, Wheels locked, Visitor at bedside, Safety level maintained Allergy Band on and Verified Yes Patient ID Band on and Verified Yes Implants Verified Yes Pacemaker/AICD Verified Yes Site Verified by Patient/Family Yes Last Fluid Intake 01/20/2024 5:35 Last Food Intake 01/18/2024 18:00 Last Void 01/20/2024 9:13 01/20/2024 9:03 EST Designated Person #1 We May Share PHI BILL [phone] Designated Person #1 Relationship Spouse Privacy Restrictions Requested None Status No, per patient Sensory Deficits None Sleep Apnea Snore Yes Sleep Apnea Tired No Sleep Apnea Obstruction No Sleep Apnea Pressure Yes Sleep Apnea BMI No Sleep Apnea Age Yes Sleep Apnea Neck No Sleep Apnea Gender No Sleep Apnea Score 3 Diagnosed With Sleep Apnea No Advanced Directives No - refuses information Infectious Disease Symptoms Patient states no symptoms Infectious Disease Recent Exposure No Alcohol and Drug Use No Employee of Institutional Living No Health Care Employee No History of Exposure to TB No History of Positive Chest X-Ray for TB No History of Positive TB Skin Test No Homeless No Known Immunosuppression No Recent Immigrant No Resident of Institutional Living No Bloody Sputum No Fatigue No Fever No Loss of Appetite No Night Sweats No Persistent Cough > 3 Weeks No Weight Loss No Barriers to Learning None evident Teaching Method Explanation, Printed materials Preferred Spoken Language Liberian Preferred Written Language Liberian Teaching Evaluation No further teaching needed Safety Brochure Information Reviewed Unable to complete [place] [facility] Video Viewed No Patient's Current Physicians EDEN Discharge To, Anticipated Home with family care Prev Test Positive/Diagnosis w/COVID-19 No Current Quarantine/Isolated any Illness No Any Contact with Sick Animals/Birds No Traveled Anywhere in Last 30 Days No Lost Weight Unintentionally Recently No Eat Poorly Due to Decreased Appetite No Total MST Score 0 No Personal Devices, Patient Valuables Glasses Anesthesia/Transfusions Unable to obtain Admission Note-Nursing Same Day Patient History 01/20/2024 7:07 [facility] History and Physical . Assessment and Plan [place] [employer] Anesthesiologists (ASA) physical status classification: Class III. Anesthetic Preoperative Plan Premedication: intravenous. Anesthetic technique: MAC. Postoperative pain management: Per surgeon. Informed consent: signed by patient. Digitally Signed by CHIQUI BRANNON on 01/20/2024 10:07 AM [facility]11-20-2024 Note Discharge Instructions Thank you for allowing [place] to assist you with your healthcare needs. The following is importantdischarge information regarding your hospital visit. Your Care Team EMMA HARMON DO, DR. Your Diagnosis COLONOSCOPY WITH CECAL POLYP BIOPSY What to do next Instructions From Your Doctor Screening colonoscopy 8 years Scheduled Follow-Up Appointments 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 When With Where Contact Information StatusPC 02/12/2024 09:30 AM [facility] App[facility] Follow Up with MARIANA BROOKS DO, Clinical Gastroenterology Where:[address] [facility] [place] [address]- [phone] Additional Information: CALL DR BROOKS WITH ANY QUESTIONS OR CONCERNS. GO TO THE EMERGENCY ROOM WITH ANY URGENT CONCERNS. A CECAL POLYP BIOPSY WAS PERFORMED AND SENT TO THE LAB. YOUR NEXT COLONOSCOPY SHOULD BE DONE IN 8 YEARS OR SOONER IF YOU HAVE CONCERNING SYMPTOMS. Follow Up with EMMA HARMON DO Where:[address] [facility] [place] [address]- [phone] The Following Activity and Diet Have Been Ordered for You Discharge Activity - Ordered -- Driving Restricted, No driving until tomorrow, 01/20/24 9:04:00 EST Discharge Return to Work, School, or Sports (Discharge Return to status) - Ordered -- May return to: work, 01/20/24 9:04:00 EST Discharge Diet - Ordered -- Type of Diet: Regular Diet, 01/20/24 9:04:00 EST Someone Will Contact You Regarding These Home Health Referrals No home referrals have been ordered for you. No one will call you. Allergies Benadryl Throat tightness Vicodin morphine Throat tightness vancomycin Throat symptom Medications Please ask your primary doctor or pharmacist before taking any other medication not listed, including over the counter drugs, herbal medications, vitamins and or supplements as they may interact withyour home medications. What How Much When Why Instructions Last Dose Unchanged aspirin (aspirin 81 mg oral delayed releasetablet) 1 tab(s) by mouth Every day Unchanged biotin (biotin 1000 mcg oral tablet) 1 tab(s) by mouth Once a day Duration: 90 Days Unchanged cholecalciferol (cholecalciferol 50 mcg (2000 intl units) oral capsule) 2 cap by mouth Once a day Duration: 90 Days Unchanged cyanocobalamin (Vitamin B12 1000 mcg oral tablet) 1 tab(s) by mouth Once a day Duration: 90 Days Unchanged dicyclomine (dicyclomine 20 mg oral tablet) 1 tab(s) by mouth Four (4) times a day as needed for abdominal pain/diarrhea Duration: 30 Days Unchanged DME (DME MISCellaneous) See instructions Rotator cuff tear dispense one sling and swath; dx M75.100 Unchanged DME (DME MISCellaneous) See instructions dx I10; dispense one automated sphygmomanometer with supplies. Unchanged docusate (DOK 100 mg oral capsule) 1 cap by mouth Two (2) times a day Duration: 90 Days Unchanged ferrous sulfate (ferrous sulfate 325 mg (65 mg elemental iron) oral tablet) 1 tab(s) by mouth Two (2) times a day Duration: 90 Days Take with food. Unchanged hydrOXYzine (hydrOXYzine hydrochloride 25 mg oral tablet) 1 tab(s) by mouth Four (4) times a day as needed for Panic attacks Duration: 30 Days Unchanged lactobacillus acidophilus (lactobacillus acidophilus oral tablet) 1 tab(s) by mouth Once a day Duration: 90 Days Unchanged levETIRAcetam (levETIRAcetam 500 mg oral tablet) 1 tab(s) by mouth Two (2) times a day Unchanged levothyroxine (levothyroxine 112 mcg (0.112 mg) oral tablet) 1 tab(s) by mouth Once a day Unchanged losartan (losartan 25 mg oral tablet) 1 tab(s) by mouth Once a day Duration: 90 Days Unchanged multivitamin (Multivitamin) 1 tab(s) by mouth Every day Unchanged OLANZapine (OLANZapine 5 mg oral tablet) 1 tab(s) by mouth Daily at bedtime Duration: 30 Days Unchanged polyethylene glycol 3350 (MiraLax oral powder for reconstitution) 17 gram(s) by mouth Two (2) times a day Duration: 30 Days Unchanged polyethylene glycol 3350 with electrolytes (PEG-3350 with Electrolytes (Eqv-GoLYTELY) oral powder for reconstitution) See instructions Screening for colon cancer Take as directed starting 1 day before colonoscopy. Follow instructions as provided by your GI provider at [place]. Unchanged rosuvastatin (rosuvastatin 20 mg oral tablet) 1 tab(s) by mouth Daily at bedtime Duration: 90 Days Unchanged sertraline (sertraline 100 mg oral tablet) 1.5 tab(s) by mouth Once a day Duration: 90 Days Unchanged ubiquinone (Co Q-10 100 mg oral capsule) 1 cap by mouth Every day Unchanged zolpidem (zolpidem 5 mg oral tablet) 1 tab(s) by mouth Daily at bedtime as needed for as needed for sleep Insomnia Duration: 30 Days fill on or after 2023 Please take this list to your next doctor s visit. Bring all medications you take, including over the counter medications, herbals and other supplements with you to your doctor s visit. Patients and families are reminded to discard old lists and to update any records with all medication providers or retail pharmacies. Education Materials Colon Biopsy, Care After This sheet gives you information about how to care for yourself after your procedure. Your health care provider may also give you more specific instructions. If you have problems or questions, contact your health care provider. What can I expect after the procedure? After the procedure, it is common to have: A small amount of blood in your stool for 24 hours after the procedure. Some gas. Mild cramping or bloating in your abdomen. Follow these instructions at home: General instructions For the first 24 hours after the procedure: ? Do not drive or use machinery. ? Do not sign important documents. ? Do not drink alcohol. ? Do your regular daily activities at a slower pace than normal. ? Eat soft, qbpo-rp-oohsns foods. ? Rest often. Take yvdg-hjx-crdquhu or prescription medicines only as told by your health care provider. Keep all follow-up visits as told by your health care provider. This is important. Relieving cramping and bloating Try walking around when you have cramps or feel bloated. Put heat on your abdomen as told by your health care provider. Use a heat source that your health care provider recommends, such as a moist heat pack or a heating pad. ? Place a towel between your skin and the heat source. ? Leave the heat on for 20 30 minutes. ? Remove the heat if your skin turns bright red. This is especially important if you are unable to feel pain, heat, or cold. You may have a greater risk of getting burned. Eating and drinking Drink enough fluid to keep your urine pale yellow. Return to your normal diet as instructed by your health care provider. Avoid heavy or fried foods that are hard to digest. Avoid drinking alcohol for as long as told by your health care provider. Contact a health care provider if: You have blood in your stool 2 3 days after the procedure. Get help right away if: You have more than a small spotting of blood in your stool. You pass large blood clots in your stool. Your abdomen is swollen. You have nausea or vomiting. You have a fever. You have increasing abdominal pain that is not relieved with medicine. Summary After the procedure, it is common to have mild cramping and bloating in the abdomen. Do not drive for 24 hours after the procedure. Try walking around when you have cramps or feel bloated. This information is not intended to replace advice given to you by your health care provider. Make sure you discuss any questions you have with your health care provider. Document Released: 07/28/2017 Document Revised: 01/29/2018 Document Reviewed: 07/28/2017 [employer] Patient Education 2020 [employer]. Monitored Anesthesia Care, Care After These instructions provide you with information about caring for yourself after your procedure. Your health care provider may also give you more specific instructions. Your treatment has been plannedaccording to current medical practices, but problems sometimes occur. Call your health care provider if you have any problems or questions after your procedure. What can I expect after the procedure? After your procedure, you may: Feel sleepy for several hours. Feel clumsy and have poor balance for several hours. Feel forgetful about what happened after the procedure. Have poor judgment for several hours. Feel nauseous or vomit. Have a sore throat if you had a breathing tube during the procedure. Follow these instructions at home: For at least 24 hours after the procedure: Have a responsible adult stay with you. It is important to have someone help care for you until youare awake and alert. Rest as needed. Do not: ? Participate in activities in which you could fall or become injured. ? Drive. ? Use heavy machinery. ? Drink alcohol. ? Take sleeping pills or medicines that cause drowsiness. ? Make important decisions or sign legal documents. ? Take care of children on your own. Eating and drinking Follow the diet that is recommended by your health care provider. If you vomit, drink water, juice, or soup when you can drink without vomiting. Make sure you have little or no nausea before eating solid foods. General instructions Take wsfb-zrv-fsdrzxh and prescription medicines only as told by your health care provider. If you have sleep apnea, surgery and certain medicines can increase your risk for breathing problems. Follow instructions from your health care provider about wearing your sleep device: ? Anytime you are sleeping, including during daytime naps. ? While taking prescription pain medicines, sleeping medicines, or medicines that make you drowsy. If you smoke, do not smoke without supervision. Keep all follow-up visits as told by your health care provider. This is important. Contact a health care provider if: You keep feeling nauseous or you keep vomiting. You feel light-headed. You develop a rash. You have a fever. Get help right away if: You have trouble breathing. Summary For several hours after your procedure, you may feel sleepy and have poor judgment. Have a responsible adult stay with you for at least 24 hours or until you are awake and alert. This information is not intended to replace advice given to you by your health care provider. Make sure you discuss any questions you have with your health care provider. Document Released: 06/08/2016 Document Revised: 05/17/2018 Document Reviewed: 06/08/2016 [employer] Patient Education 2020 [employer]One. Colon Polyps Polyps are tissue growths inside the body. Polyps can grow in many places, including the large intestine (colon). A polyp may be a round bump or a mushroom-shaped growth. You could have one polyp or several. Most colon polyps are noncancerous (benign). However, some colon polyps can become cancerous over time. Finding and removing the polyps early can help prevent this. What are the causes? The exact cause of colon polyps is not known. What increases the risk? You are more likely to develop this condition if you: Have a family history of colon cancer or colon polyps. Are older than 50 or older than 45 if you are . Have inflammatory bowel disease, such as ulcerative colitis or Crohn's disease. Have certain hereditary conditions, such as: ? Familial adenomatous polyposis. ? Spencer syndrome. ? Turcot syndrome. ? Peutz Jeghers syndrome. Are overweight. Smoke cigarettes. Do not get enough exercise. Drink too much alcohol. Eat a diet that is high in fat and red meat and low in fiber. Had childhood cancer that was treated with abdominal radiation. What are the signs or symptoms? Most polyps do not cause symptoms. If you have symptoms, they may include: Blood coming from your rectum when having a bowel movement. Blood in your stool. The stool may look dark red or black. Abdominal pain. A change in bowel habits, such as constipation or diarrhea. How is this diagnosed? This condition is diagnosed with a colonoscopy. This is a procedure in which a lighted, flexible scope is inserted into the anus and then passed into the colon to examine the area. Polyps are sometimes found when a colonoscopy is done as part of routine cancer screening tests. How is this treated? Treatment for this condition involves removing any polyps that are found. Most polyps can be removed during a colonoscopy. Those polyps will then be tested for cancer. Additional treatment may be needed depending on the results of testing. Follow these instructions at home: Lifestyle Maintain a healthy weight, or lose weight if recommended by your health care provider. Exercise every day or as told by your health care provider. Do not use any products that contain nicotine or tobacco, such as cigarettes and e-cigarettes. If you need help quitting, ask your health care provider. If you drink alcohol, limit how much you have: ? 0 1 drink a day for women. ? 0 2 drinks a day for men. Be aware of how much alcohol is in your drink. In the [place] one drink equals one 12 oz bottle of beer (355 mL), one 5 oz glass of wine (148 mL), or one 1 oz shot of hard liquor (44 mL). Eating and drinking Eat foods that are high in fiber, such as fruits, vegetables, and whole grains. Eat foods that are high in calcium and vitamin D, such as milk, cheese, yogurt, eggs, liver, fish, and broccoli. Limit foods that are high in fat, such as fried foods and desserts. Limit the amount of red meat and processed meat you eat, such as hot dogs, sausage, farah, and lunch meats. General instructions Keep all follow-up visits as told by your health care provider. This is important. ? This includes having regularly scheduled colonoscopies. ? Talk to your health care provider about when you need a colonoscopy. Contact a health care provider if: You have new or worsening bleeding during a bowel movement. You have new or increased blood in your stool. You have a change in bowel habits. You lose weight for no known reason. Summary Polyps are tissue growths inside the body. Polyps can grow in many places, including the colon. Most colon polyps are noncancerous (benign), but some can become cancerous over time. This condition is diagnosed with a colonoscopy. Treatment for this condition involves removing any polyps that are found. Most polyps can be removed during a colonoscopy. This information is not intended to replace advice given to you by your health care provider. Make sure you discuss any questions you have with your health care provider. Document Released: 11/12/2004 Document Revised: 06/03/2018 Document Reviewed: 06/03/2018 [employer] Patient Education 2020 [employer] Diverticulosis Diverticulosis is a condition that develops when small pouches (diverticula) form in the wall of the large intestine (colon). The colon is where water is absorbed and stool is formed. The pouches form when the inside layer of the colon pushes through weak spots in the outer layers of the colon. Youmay have a few pouches or many of them. What are the causes? The cause of this condition is not known. What increases the risk? The following factors may make you more likely to develop this condition: Being older than age 60. Your risk for this condition increases with age. Diverticulosis is rare among people younger than age 30. By age 80, many people have it. Eating a low-fiber diet. Having frequent constipation. Being overweight. Not getting enough exercise. Smoking. Taking tscx-qtk-akuxnmy pain medicines, like aspirin and ibuprofen. Having a family history of diverticulosis. What are the signs or symptoms? In most people, there are no symptoms of this condition. If you do have symptoms, they may include: Bloating. Cramps in the abdomen. Constipation or diarrhea. Pain in the lower left side of the abdomen. How is this diagnosed? This condition is most often diagnosed during an exam for other colon problems. Because diverticulosis usually has no symptoms, it often cannot be diagnosed independently. This condition may be diagnosed by: Using a flexible scope to examine the colon (colonoscopy). Taking an X-ray of the colon after dye has been put into the colon (barium enema). Doing a CT scan. How is this treated? You may not need treatment for this condition if you have never developed an infection related to diverticulosis. If you have had an infection before, treatment may include: Eating a high-fiber diet. This may include eating more fruits, vegetables, and grains. Taking a fiber supplement. Taking a live bacteria supplement (probiotic). Taking medicine to relax your colon. Taking antibiotic medicines. Follow these instructions at home: Drink 6 8 glasses of water or more each day to prevent constipation. Try not to strain when you have a bowel movement. If you have had an infection before: ? Eat more fiber as directed by your health care provider or your diet and philosophy specialist (dietitian). ? Take a fiber supplement or probiotic, if your health care provider approves. Take cvjc-fjo-xkxssdz and prescription medicines only as told by your health care provider. If you were prescribed an antibiotic, take it as told by your health care provider. Do not stop taking the antibiotic even if you start to feel better. Keep all follow-up visits as told by your health care provider. This is important. Contact a health care provider if: You have pain in your abdomen. You have bloating. You have cramps. You have not had a bowel movement in 3 days. Get help right away if: Your pain gets worse. Your bloating becomes very bad. You have a fever or chills, and your symptoms suddenly get worse. You vomit. You have bowel movements that are bloody or black. You have bleeding from your rectum. Summary Diverticulosis is a condition that develops when small pouches (diverticula) form in the wall of the large intestine (colon). You may have a few pouches or many of them. This condition is most often diagnosed during an exam for other colon problems. If you have had an infection related to diverticulosis, treatment may include increasing the fiber in your diet, taking supplements, or taking medicines. This information is not intended to replace advice given to you by your health care provider. Make sure you discuss any questions you have with your health care provider. Document Released: 11/13/2004 Document Revised: 01/29/2018 Document Reviewed: 01/05/2017 [employer] Patient Education 2020 [employer]. Colonoscopy, Adult, Care After This sheet gives you information about how to care for yourself after your procedure. Your doctor may also give you more specific instructions. If you have problems or questions, call your doctor. What can I expect after the procedure? After the procedure, it is common to have: A small amount of blood in your poop for 24 hours. Some gas. Mild cramping or bloating in your belly. Follow these instructions at home: General instructions For the first 24 hours after the procedure: ? Do not drive or use machinery. ? Do not sign important documents. ? Do not drink alcohol. ? Do your daily activities more slowly than normal. ? Eat foods that are soft and easy to digest. Take rldm-fuj-xbsuwfc or prescription medicines only as told by your doctor. To help cramping and bloating: Try walking around. Put heat on your belly (abdomen) as told by your doctor. Use a heat source that your doctor recommends, such as a moist heat pack or a heating pad. ? Put a towel between your skin and the heat source. ? Leave the heat on for 20 30 minutes. ? Remove the heat if your skin turns bright red. This is especially important if you cannot feel pain, heat, or cold. You can get burned. Eating and drinking Drink enough fluid to keep your pee (urine) clear or pale yellow. Return to your normal diet as told by your doctor. Avoid heavy or fried foods that are hard to digest. Avoid drinking alcohol for as long as told by your doctor. Contact a doctor if: You have blood in your poop (stool) 2 3 days after the procedure. Get help right away if: You have more than a small amount of blood in your poop. You see large clumps of tissue (blood clots) in your poop. Your belly is swollen. You feel sick to your stomach (nauseous). You throw up (vomit). You have a fever. You have belly pain that gets worse, and medicine does not help your pain. Summary After the procedure, it is common to have a small amount of blood in your poop. You may also have mild cramping and bloating in your belly. For the first 24 hours after the procedure, do not drive or use machinery, do not sign important documents, and do not drink alcohol. Get help right away if you have a lot of blood in your poop, feel sick to your stomach, have a fever, or have more belly pain. This information is not intended to replace advice given to you by your health care provider. Make sure you discuss any questions you have with your health care provider. Document Released: 03/21/2011 Document Revised: 12/17/2017 Document Reviewed: 11/10/2016 Elsevier Patient Education 2020 [employer] Additional Information VACCINATE! IT SAVES LIVES! Members of the community who have not yet received the COVID-19 vaccine and would like to receive it can visit one of [facility] vaccine clinics. There are many vaccine clinic locations within the [facility]. For locations and available times, please visit [email or web address] It is important to note that some COVID mobile vaccine clinics are held outdoors and may be canceled in rainy or stormy conditions. To learn more about pediatric vaccinations (ages 5-11), we invite you to visit the [facility] webpage. [email or web address]/[email or web address] [email or web address] learn more about the COVID-19 vaccine, we invite you to visit the CDC website for a list of frequently asked questions.https://www.cdc.gov/coronavirus/2019-ncov/vaccines/faq.html [facility] Patient Portal Access Instructions: Stay connected with your healthcare team and access your personal medical information anytime with the [facility] Patient Portal. Please follow the directions below to create your [employer] account: 1.Access the email account you provided upon registration to the hospital/physician office.2.Look for an invitation email from [facility].3.Open the email and access the invitation link: AcceptInvitation to [facility].4.Fill in the required ramirez to create your account. To access your account, visit [email or web address]. Click the blue button labeled Access Patient Portal and then log in with the username and password that you created in the steps above. You will be able to view your test results, lab results, a summary of your visits, upcoming appointments and more. There is also a convenient messaging option where you can send secure messages to your p [employer]. In addition, you will have the ability to download any documents or summaries to your computer and/or send the information securely to a physician. Remember that your healthcare information is confidential, so carefully consider who you will allowto register on the [facility] Patient Portal for access to your information. You can also access the [facility] Patient Portal on the [facility] [employer] [employer]. Simply click on Patient Portal and then log into your account. If you would like to receive a full copy of your medical records, please contact the [facility] Medical Records Department by calling [phone], Thursday through Thursday between 8 a.m. and 4:30 p.m. HOW TO SAFELY DISPOSE OF PRESCRIPTION MEDICATIONS Please use one of the following methods to safely dispose of your unused medications. 1.Use a drug disposal kit: the drug disposal pouch allows you to safely discard your old and unuseddrugs. Ask your nurse to give you one when you are discharged.2.Visit a local take-back location: Many local pharmacies and police departments have programs that collect old and unwanted prescriptiondrugs. Call your local pharmacy or go to [email or web address] to find one close to you.3.Make use of household items: Use cat litter or old coffee grounds to dispose medications if other options arenot available. Mix your drugs with these household products, seal them in an airtight container andthrow it into the garbage. Call [facility]: [phone] to be sure your drugs can be disposed of in this way. Some medicines may require a different approach.4.Never flush your medications down the toilet. IF YOU HAVE BEEN PRESCRIBED AN OPIOID FOR PAIN If you have been prescribed an opioid (such as hydrocodone, oxycodone or morphine), it is critical to understand the possible side effects and risks of opioid pain medications. Even when taken as directed, opioids can have several side effects including: Tolerance, meaning you might need to take more of a medication for the same pain relief. Nausea, vomiting and/or constipation. Sleepiness, dizziness, dry mouth, confusion, depression or itching. Physical dependence, meaning you have withdrawal symptoms when a medication is stopped, can develop within a few days. KNOW YOUR RESPONSIBILITIES It is important to know exactly how much and how often to take the opioid pain medications you are prescribed. Never take opioids in higher amounts or more often than prescribed. Do not combine opioids with alcohol or other drugs that cause drowsiness, such as benzodiazepines, also known as benzos, including diazepam and alprazolam, muscle relaxants or sleep aids. Never sell or share prescription opioids. This is illegal. Store opioids in a secure place and out of reach of others (including children, family, friends and visitors). The last page of this document has been signed and retained as a CHART COPY. Signatures Patient Education Materials Colon Biopsy, Care After Monitored Anesthesia Care, Care After Colon Polyps Diverticulosis Colonoscopy, Adult, Care After, Ieft-tf-Ivkd Medication Leaflets My discharge plan and instructions have been reviewed and explained to me and INORMA EDITH M understand my current condition and have read and understand these discharge instructions. I have received a written copy of the plan/instructions. If I have questions, I am aware that I should contact my doctor. 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 Anesthesia MAC Estimated Blood Loss None Specimen(s) Possible polyp Complications None Technique Patient was evaluated in the preoperative area and surgical consent was obtained. She was then brought to endoscopy and monitored on pulse oximetry, cardiac monitoring and placed on supplemental oxygen. She was placed in left lateral decubitus position and a surgical timeout was obtained. Sedation was provided by anesthesia. A digital send was unremarkable. The colonoscope was carefully inserted into the rectum advanced towards the cecum. Cecal pouch had some residual liquid debris otherwise grossly normal. A small prominent fold was noted which may be a polyp. Biopsy polypectomy was performed. Scope then carefully checked under 6-minute withdrawal with a fair prep. Retroflexion view of therectum was normal. Scope was removed. The patient was then transferred to the recovery in stable condition vital signs. Discharge summary: 1. Final Diagnosis: Possible polyp of cecum otherwise normal exam 2. Outcome: Patient tolerated procedure well without complication 3. Disposition: Patient was discharged home to follow previous diet and medications 4. Follow-up care: Follow-up with primary care physician as scheduled. Repeat exam in 8 years Digitally Signed by MARIANA BROOKS DO on 01/20/2024 09:39 AM [facility]11-20-2024 Note SUPERIOR ADMISSION HISTORY AND PHYSICIAL CHIEF COMPLAINT: Colorectal cancer screening HISTORY OF PRESENT ILLNESS: Colorectal cancer screening, last colonoscopy more than 10 years ago REVIEW OF SYSTEMS: Constitutional: denies weight loss Cardiovascular:denies chest pain, palpitations Respiratory:denies shortness of breath Gastrointestinal:no abd pain Musculoskeletal: no arthralgias Skin: no rashes ACTIVE PROBLEMS: (53) Anxiety (81489023) Aortic atherosclerosis (221427636) Back pain (086675836) Bilateral adhesive capsulitis of shoulders (2609352977) Bilateral shoulder pain (10159724) Blood in stool (3665240707) BMI 32.0-32.9,adult (634685879) Bradycardia, sinus (86662614) Constipation (03990377) Diabetic peripheral vascular disease (9320135344) Diarrhea (454205121) Diverticulosis (3683183551) Easy bruising (6212391633) Hair thinning (588648683) Hepatic steatosis (259353970) HTN (hypertension) (1677456818) Hypertension associated with type 2 diabetes mellitus (5891604953) Hypothyroidism (07524444) 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) Immunization due (481112348) Insomnia (235127168) Iron deficiency (95743177) Major depression, recurrent (436410571) Medicare annual wellness visit, subsequent (598459572) Memory change (4879248960) Moodiness (653559078) Nephrolithiasis (417205677) Non-tobacco user (769520748) Obese (7886162807) Pain in the abdomen (08223001) Pancreatic cyst (78154366) Panic attacks (824712219) Peripheral vascular disease (5806725796) Postmenopausal (966511307) Preop examination (145396953) Right shoulder pain (65627923) Rosacea (1975225881) S/P bariatric surgery (5592163077) S/P colon resection (5510671092) S/P hernia repair (8086840553) S/P hysterectomy (569537679) Screen for colon cancer (221175192) Screening due (909641278) Screening for breast cancer (396939326) Screening for osteoporosis (520239126) Seizure disorder (059489758) Snoring (440442330) Somatic dysfunction of rib region (6817663708) Thoracic aortic aneurysm (8553963745) Upper respiratory virus (116428491) Ventral hernia (3150231839) Vitamin B 12 deficiency (273533007) Vitamin D deficiency (61203860) MEDICATIONS: Active Inpt Meds: None Active PRN Meds: None One Time Meds: None Active IV Meds: None ALLERGIES: (4) Benadryl morphine vancomycin Vicodin FAMILY HISTORY: SOCIAL HISTORY: PHYSICAL EXAM: VITALS: No Data Available 24 Hr Tmax: No Data Available 36 Hr Tmax: No Data Available Vital Signs are the last 5 in the past 48 hours. Weights display the last 5 within 7 days. Initial Wt: No Data Available Current Wt: No Data Available physical exam alert and oriented cardio; regular without murmur pulm; clear abd; soft, nontender LABS: No 36hr Lab Data DIAGNOSTICS: IMPRESSION: Colorectal cancer screening PLAN: Colonoscopy as discussed in the office Digitally Signed by MARIANA BROOKS DO on 01/20/2024 07:08 AM [facility]09-30-2024 Hospital Discharge instructions Patient Education 11/30/2023 18:57:46 Abdominal Pain Abdominal Pain Abdominal pain is pain in the stomach or belly area. Everyone has this pain from time to time. In many cases it goes away on its own. But abdominal pain can sometimes be due to a serious problem, such as appendicitis. So it s important to know when to get help. Causes of abdominal pain There are many possible causes of abdominal pain. Common causes in adults include: Constipation, diarrhea, or gas Stomach acid flowing back up into the esophagus (acid reflux or heartburn) Severe acid reflux, called GERD (gastroesophageal reflux disease) A sore in the lining of the stomach or small intestine (peptic ulcer) Inflammation of the gallbladder, liver, or pancreas Gallstones or kidney stones Appendicitis Intestinal blockage An internal organ pushing through a muscle or other tissue (hernia) Urinary tract infections In women, menstrual cramps, fibroids, ovarian cysts, pelvic inflammatory disease, or endometriosis Inflammation or infection of the intestines, including Crohn's disease and ulcerative colitis Irritable bowel syndrome Diagnosing the cause of abdominal pain Your healthcare provider will give you a physical exam help find the cause of your pain. If needed,you will have tests. Belly pain has many possible causes. So it can be hard to find the reason for your pain. Giving details about your pain can help. Tell your provider where and when you feel the pain, and what makes it better or worse. Also let your provider know if you have other symptoms such as: Fever Tiredness Upset stomach (nausea) Vomiting Changes in bathroom habits Blood in the stool or black, tarry stool Weight loss that you can't explain (involuntary weight loss?) Also report any family history of stomach or intestinal problems, or cancers. Tell your provider about all your alcohol use and drug use. Tell your provider about all medicines you use, including herbs, vitamins, and supplements. Treating abdominal pain Some causes of pain need emergency medical treatment right away. These include appendicitis or a bowel blockage. Other problems can be treated with rest, fluids, or medicines. Your healthcare provider can give you specific instructions for treatment or self-care based on what is causing your pain. If you have vomiting or diarrhea, sip water or other clear fluids. When you are ready to eat solid foods again, start with small amounts of smqo-wz-auwebt, low- fat foods. These include apple sauce, toast, or crackers. When to get medical care Call 911 or go to the hospital right away if you: Can t pass stool and are vomiting Are vomiting blood or have bloody diarrhea or black, tarry diarrhea Have chest, neck, or shoulder pain Feel like you might pass out Have pain in your shoulder blades with nausea Have sudden, severe belly pain Have new, severe pain unlike any you have felt before Have a belly that is rigid, hard, and hurts to touch Call your healthcare provider if you have: Pain for more than 5 days Bloating for more than 2 days Diarrhea for more than 5 days A fever of 100.4 F (38 C) or higher, or as directed by your healthcare provider Pain that gets worse Weight loss for no reason Continued lack of appetite Blood in your stool How to prevent abdominal pain Here are some tips to help prevent abdominal pain: Eat smaller amounts of food at each meal. Don't eat greasy, fried, or other high-fat foods. Don't eat foods that give you gas. Exercise regularly. Drink plenty of fluids. To help prevent GERD symptoms: Quit smoking. Reduce alcohol and foods that increase stomach acid. Don't use aspirin or hjlk-lhn-bgezngp pain and fever medicines, if possible. This includes nonsteroidal anti-inflammatory drugs (NSAIDs). Lose excess weight. Finish eating at least 2 hours before you go to bed or lie down. Raise the head of your bed. 5192-4548 [employer]. [address] [place] [address]. All rights reserved. This information is not intended as a substitute for professional medical care. Always follow yourhealthcare professional's instructions. Follow Up Care 11/30/2023 15:11:09 With:EMMA HARMON DO Address: [address] [place] [phone] When:2-4 days [facility] 09-30-2024 Note Discharge Instructions Thank you for allowing [place] to assist you with your healthcare needs. The following is importantdischarge information regarding your hospital visit. Diagnosis from Today's Visit Abdominal pain Abdominal pain What to Do Next Instructions from Your Care Team No qualifying data available. Post Acute Orders No qualifying data available. You Need to Schedule the Following Appointments Follow Up with EMMA HARMON DO When:Within 2-4 days Where:[address] [place] [address] [phone] Allergies Benadryl Throat tightness Vicodin morphine Throat tightness vancomycin Throat symptom Medications Please ask your primary doctor or pharmacist before taking any other medication not listed, including over the counter drugs, herbal medications, vitamins and or supplements as they may interact withur home medications. What How Much When Why Instructions Last Dose New traMADol (Ultram 50 mg oral tablet) 1 tab(s) by mouth Every 12 hours Abdominal pain Duration: 5 Days Printed Prescription Unchanged aspirin (aspirin 81 mg oral delayed release tablet) 1 tab(s) by mouth Every day Unchanged biotin (biotin 1000 mcg oral tablet) 1 tab(s) by mouth Once a day Duration: 90 Days Unchanged cholecalciferol (cholecalciferol 50 mcg (2000 intl units) oral capsule) 2 cap by mouth Once a day Duration: 90 Days Unchanged cyanocobalamin (Vitamin B12 1000 mcg oral tablet) 1 tab(s) by mouth Once a day Duration: 90 Days Unchanged DME (DME MISCellaneous) See instructions Rotator cuff tear dispense one sling and swath; dx M75.100 Unchanged DME (DME MISCellaneous) See instructions dx I10; dispense one automated sphygmomanometer with supplies. Unchanged docusate (DOK 100 mg oral capsule) 1 cap by mouth Two (2) times a day Duration: 90 Days Unchanged ferrous sulfate (ferrous sulfate 325 mg (65 mg elemental iron) oral tablet) 1 tab(s) by mouth Two (2) times a day Duration: 90 Days Take with food. Unchanged hydrOXYzine (hydrOXYzine hydrochloride 25 mg oral tablet) 1 tab(s) by mouth Four (4) times a day as needed for Panic attacks Duration: 30 Days Unchanged lactobacillus acidophilus (lactobacillus acidophilus oral tablet) 1 tab(s) by mouth Once a day Duration: 90 Days Unchanged levETIRAcetam (levETIRAcetam 500 mg oral tablet) 1 tab(s) by mouth Two (2) times a day Unchanged levothyroxine (levothyroxine 112 mcg (0.112 mg) oral tablet) 1 tab(s) by mouth Once a day Unchanged losartan (losartan 25 mg oral tablet) 1 tab(s) by mouth Once a day Duration: 90 Days Unchanged multivitamin (Multivitamin) 1 tab(s) by mouth Every day Unchanged polyethylene glycol 3350 (MiraLax oral powder for reconstitution) 17 gram(s) by mouth Two (2) times a day Duration: 30 Days Unchanged rosuvastatin (rosuvastatin 20 mg oral tablet) 1 tab(s) by mouth Daily at bedtime Duration: 90 Days Unchanged sertraline (sertraline 100 mg oral tablet) 1.5 tab(s) by mouth Once a day Duration: 90 Days Unchanged ubiquinone (Co Q-10 100 mg oral capsule) 1 cap by mouth Every day Unchanged zolpidem (zolpidem 5 mg oral tablet) 1 tab(s) by mouth Daily at bedtime as needed for as needed for sleep Insomnia Duration: 30 Days fill on or after 2023 Please take this list to your next doctor s visit. Bring all medications you take, including over the counter medications, herbals and other supplements with you to your doctor s visit. Patients and families are reminded to discard old lists and to update any records with all medication providers or retail pharmacies. Education Materials Abdominal Pain Abdominal pain is pain in the stomach or belly area. Everyone has this pain from time to time. In many cases it goes away on its own. But abdominal pain can sometimes be due to a serious problem, such as appendicitis. So it s important to know when to get help. Causes of abdominal pain There are many possible causes of abdominal pain. Common causes in adults include: Constipation, diarrhea, or gas Stomach acid flowing back up into the esophagus (acid reflux or heartburn) Severe acid reflux, called GERD (gastroesophageal reflux disease) A sore in the lining of the stomach or small intestine (peptic ulcer) Inflammation of the gallbladder, liver, or pancreas Gallstones or kidney stones Appendicitis Intestinal blockage An internal organ pushing through a muscle or other tissue (hernia) Urinary tract infections In women, menstrual cramps, fibroids, ovarian cysts, pelvic inflammatory disease, or endometriosis Inflammation or infection of the intestines, including Crohn's disease and ulcerative colitis Irritable bowel syndrome Diagnosing the cause of abdominal pain Your healthcare provider will give you a physical exam help find the cause of your pain. If needed,you will have tests. Belly pain has many possible causes. So it can be hard to find the reason for your pain. Giving details about your pain can help. Tell your provider where and when you feel the pain, and what makes it better or worse. Also let your provider know if you have other symptoms such as: Fever Tiredness Upset stomach (nausea) Vomiting Changes in bathroom habits Blood in the stool or black, tarry stool Weight loss that you can't explain (involuntary weight loss?) Also report any family history of stomach or intestinal problems, or cancers. Tell your provider about all your alcohol use and drug use. Tell your provider about all medicines you use, including herbs, vitamins, and supplements. Treating abdominal pain Some causes of pain need emergency medical treatment right away. These include appendicitis or a bowel blockage. Other problems can be treated with rest, fluids, or medicines. Your healthcare provider can give you specific instructions for treatment or self-care based on what is causing your pain. If you have vomiting or diarrhea, sip water or other clear fluids. When you are ready to eat solid foods again, start with small amounts of qsep-po-ndudin, low- fat foods. These include apple sauce, toast, or crackers. When to get medical care Call 911 or go to the hospital right away if you: Can t pass stool and are vomiting Are vomiting blood or have bloody diarrhea or black, tarry diarrhea Have chest, neck, or shoulder pain Feel like you might pass out Have pain in your shoulder blades with nausea Have sudden, severe belly pain Have new, severe pain unlike any you have felt before Have a belly that is rigid, hard, and hurts to touch Call your healthcare provider if you have: Pain for more than 5 days Bloating for more than 2 days Diarrhea for more than 5 days A fever of 100.4 F (38 C) or higher, or as directed by your healthcare provider Pain that gets worse Weight loss for no reason Continued lack of appetite Blood in your stool How to prevent abdominal pain Here are some tips to help prevent abdominal pain: Eat smaller amounts of food at each meal. Don't eat greasy, fried, or other high-fat foods. Don't eat foods that give you gas. Exercise regularly. Drink plenty of fluids. To help prevent GERD symptoms: Quit smoking. Reduce alcohol and foods that increase stomach acid. Don't use aspirin or efzr-oic-lssbuww pain and fever medicines, if possible. This includes nonsteroidal anti-inflammatory drugs (NSAIDs). Lose excess weight. Finish eating at least 2 hours before you go to bed or lie down. Raise the head of your bed. [id number] [employer]. [address] [place] [address]. All rights reserved. This information is not intended as a substitute for professional medical care. Always follow yourhealthcare professional's instructions. Additional Information VACCINATE! IT SAVES LIVES! Members of the community who have not yet received the COVID-19 vaccine and would like to receive it can visit one of [facility] vaccine clinics. There are many vaccine clinic locations within the [facility]. For locations and available times, please visit [email or web address] It is important to note that some COVID mobile vaccine clinics are held outdoors and may be canceled in rainy or stormy conditions. To learn more about pediatric vaccinations (ages 5-11), we invite you to visit the [facility] webpage. [email or web address]/[email or web address]-Sqynlfmlmdw-Rmczasxevk-[email or web address]-Ahc stions.htmlTo learn more about the COVID-19 vaccine, we invite you to visit the CDC website for a list of frequently asked questions. https://www.cdc.gov/coronavirus/2019-ncov/vaccines/faq.html [facility] Patient Portal Access Instructions: Stay connected with your healthcare team and access your personal medical information anytime with the [facility] Patient Portal. If you would like a full copy of your medical records please contact the [facility] Medical Records Department Thursday through Thursday between 8a.m. and 4:30p.m. Please follow the directions below to access the portal: 1.Access the email account you provided upon registration to the [facility].2.Look for an invitation email from [facility].3.Open the email and access the invitation link: Accept Invitation to [facility].Fill in the required ramirez to create your account. Sign into [email or web address] with your username and password that you created in the above steps to stay up to date. You can then view a summary of results, a summary of your visits, and the ability to download your summaries to your computer or send the information securely to a physician. Remember that your healthcare information is confidential, so carefully consider who you will allow to register on the [facility] Patient Portal for access to your information. You can also access the [facility] Patient Portal on the [employer] van. Simply click on Health Records under [employer] and then click on the [employer] logo. HOW TO SAFELY DISPOSE OF PRESCRIPTION MEDICATIONS Please use one of the following methods to safely dispose of your unused medications. 1.Use a drug disposal kit: the drug disposal pouch allows you to safely discard your old and unuseddrugs. Ask your nurse to give you one when you are discharged.2.Visit a local take-back location: Many local pharmacies and police departments have programs that collect old and unwanted prescriptiondrugs. Call your local pharmacy or go to http://bit.ly/8D7Hg5d to find one close to you.3.Make use of household items: Use cat litter or old coffee grounds to dispose medications if other options arenot available. Mix your drugs with these household products, seal them in an airtight container andthrow it into the garbage. Call [facility]: [phone] to be sure your drugs can be disposed of in this way. Some medicines may require a different approach.4.Never flush your medications down the toilet. IF YOU HAVE BEEN PRESCRIBED AN OPIOIDS FOR PAIN If you have been prescribed an opioid (such as hydrocodone, oxycodone or morphine), it is critical to understand the possible side effects and risks of opioid pain medications. Even when taken as directed, opioids can have several side effects including: Tolerance, meaning you might need to take more of a medication for the same pain relief. Nausea, vomiting and/or constipation. Sleepiness, dizziness, dry mouth, confusion, depression or itching. Physical dependence, meaning you have withdrawal symptoms when a medication is stopped ? this can develop within a few days. KNOW YOUR RESPONSIBILITIES It is important to know exactly how much and how often to take the opioid pain medications you are prescribed. Never take opioids in higher amounts or more often than prescribed. Do not combine opioids with alcohol or other drugs that cause drowsiness, such as benzodiazepines, also known as benzos,including diazepam and alprazolam, muscle relaxants or sleep aids. Never sell or share prescriptionopioids. This is illegal. Store opioids in a secure place and out of reach of others (including children, family, friends and visitors). The last page(s) of this document has been signed and retained as a CHART COPY Signatures Patient Education Materials Abdominal Pain Medication Leaflets My discharge plan and instructions have been reviewed and explained to me and INORMA EDITH M understand my current condition and have read and understand these discharge instructions. I have received a written copy of the plan/instructions. If I have questions, I am aware that I should contact my doctor. 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 No focal consolidation or pulmonary edema. No pneumothorax or pleural effusion. Eventration of the hemidiaphragm bilaterally. No acute osseous abnormalities. Postsurgical changes of the upper thoracic spine. Inferior positioning of the humeral head may be related to patient positioning or chronic changes. IMPRESSION: No acute radiographic findings. Preliminary Report was Dictated by a Resident I have personally reviewed the images of this examination and agree with the resident's findings and interpretation. Db Anderson M.D. Interpreted by: Db Anderson Preliminary Report By: Yuli Case Electronically signed By Db Anderson Dictated Date: 11/30/2023 6:23:09 PM Prelim Date: 11/30/2023 6:25:40 PM Sign Date: 11/30/2023 11:10:56 PM [facility] ORIGINAL EXAMINATION: CT OF THE ABDOMEN AND PELVIS WITH CONTRAST 11/30/2023 5:41 pm TECHNIQUE: CT of the abdomen and pelvis was performed with the administration of intravenous contrast. Multiplanar reformatted images are provided for review. Automated exposure control, iterative reconstruction, and/or weight based adjustment of the mA/kV was utilized to reduce the radiation dose to as low as reasonably achievable. COMPARISON: CT abdomen pelvis with contrast 09/15/2023. HISTORY: ORDERING SYSTEM PROVIDED HISTORY: Reason for Exam: rt sided pain x2 days, N+V, diarrhea pain FINDINGS: Visualized portion of the lower chest demonstrates no acute abnormality. Liver is within normal limits for size and demonstrates a smooth contour. No abnormal enhancement. Status post cholecystectomy. Adrenals are unremarkable in appearance. The spleen is within normal limits for size. Trace perisplenic free fluid. Unchanged size and appearance of pancreatic head cystic lesion. Kidneys are within normal limits for size and enhance symmetrically. 5 mm left midpole nonobstructing calculus. No hydroureteronephrosis is identified bilaterally. The urinary bladder is largely decompressed. Status post hysterectomy. Small hiatal hernia. 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 Unremarkable appearing anastomosis. No evidence of obstruction. Appendix is unremarkable. No free air. No abdominal or pelvic adenopathy. Abdominal aorta is nonaneurysmal with minimal calcified atherosclerotic plaque. No acute osseous or soft tissue abnormality. Redemonstration of changes status post L4-5 posterior decompression. IMPRESSION: 1. Trace perisplenic free fluid is nonspecific and potentially reactive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 medicine was prescribed. If you have chronic liver or kidney disease or ever had a stomach ulcer or gastrointestinal bleeding, talk with your doctor before using these medicines. Aspirin should never be used in anyone under 18 years of age who is ill with a fever. It may cause severe liver damage. Don't use NSAID medicines if you are already taking one for another condition (like arthritis) or are on aspirin (such as for heart disease, or after a stroke) Don't use tobacco and or drink alcohol, which may worsen your symptoms. If medicines for vomiting were prescribed, take as directed. Once vomiting stops, then follow these guidelines: During the first 12 to 24 hours follow the diet below: Fruit juices. Apple, grape juice, clear fruit drinks, and electrolyte replacement drinks. Beverages. Soft drinks without caffeine; mineral water (plain or flavored), decaffeinated tea and coffee. Soups. Clear broth and bouillon Desserts. Plain gelatin, ice pops, and fruit juice bars. As you feel better, you may add 6 to 8 ounces of yogurt per day. During the next 24 hours you may add the following to the above: Hot cereal, plain toast, bread, rolls, crackers Plain noodles, rice, mashed potatoes, chicken noodle or rice soup Unsweetened canned fruit such as applesauce, bananas (avoid pineapple and citrus) Limit caffeine and chocolate. No spices or seasonings except salt. During the next 24 hours: Gradually resume a normal diet, as you feel better and your symptoms lessen. Follow-up care Follow up with your healthcare provider, or as advised. When to seek medical advice Call your healthcare provider right away if any of these occur: Constant right-sided lower belly pain or increasing general belly pain Continued vomiting (unable to keep liquids down) for 24 hours Vomiting blood or coffee grounds Swollen belly Frequent diarrhea (more than 5 times a day); blood (red or black color) or mucus in diarrhea Reduced urine output or extreme thirst Weakness, dizziness or fainting Unusually drowsy or confused Fever of 100.4 F (38 C) oral or higher, or as directed Yellow color of the eyes or skin 5314-9670 [employer]. [address] [place] [address]. All rights reserved. This information is not intended as a substitute for professional medical care. Always follow yourhealthcare professional's instructions. 09/16/2023 00:55:02 Abdominal Pain, Adhesions Abdominal Pain, Adhesions from Surgery Surgery on the abdomen can cause bands of fibrous scar tissue (also known as adhesions) to form. This is the most common side effect of any abdominal surgery. Adhesions can form bands around the intestine and cause a partial or complete blockage of the intestinal tract (intestinal obstruction). A blocked intestine requires surgery. Symptoms Abdominal adhesions can cause these symptoms: Severe abdominal pain, acute or chronic Nausea and vomiting Bloating Inability to pass gas or stool Adhesions are more common in people who have had one or more abdominal surgeries. Diagnosis is madeusing blood tests, X-ray, CT scan, rectal exam, and (in women) pelvic exam. Abdominal adhesions arepermanent. They can be treated by surgery to remove the scar tissue. However, this treatment may create more scar tissue, and the problem may reoccur. Pelvic adhesions can cause female infertility. Home care Rest as needed, until feeling better. Eat a diet low in fiber (called a low-residue diet). Foods allowed include refined breads, white rice, fruit and vegetable juices without pulp, tender meats. These foods will pass more easily throughthe intestine. Don't eat whole-grain foods, whole fruits and vegetables, tough meats, seeds or nuts until your symptoms go away. Follow-up care Follow up with your healthcare provider, or as advised. If X-rays were done, they will be read by a radiologist and you will be notified if there are any changes. Call 911 Call 911 if any of the following occur: Trouble breathing Confusion Very drowsy or trouble awakening Fainting or loss of consciousness Rapid heart rate When to seek medical advice Call your healthcare provider right away if any of these occur: Pain gets worse or moves to the right lower abdomen New or worsening vomiting or diarrhea Swelling of the abdomen Unable to pass stool for more than 3 days or feeling constipated with abdominal pain or swelling (even if it has been less than 3 days since you've passed stool) New fever over 100.4 F (38 C), or rising fever Blood in vomit or bowel movements (dark red or black color) Weakness, dizziness or fainting Chest, arm, back, neck or jaw pain (In women): Unexpected vaginal bleeding or missed period [id number] [employer] [place] [address]. All rights reserved. This information is not intended as a substitute for professional medical care. Always follow yourhealthcare professional's instructions. Follow Up Care 09/15/2023 21:40:55 With:Go to emergency room if symptoms worsen Address:Unknown When:2-4 days With:EMMA HARMON DO Address: [address] [place] [phone] When:2-4 days [facility] 07-17-2024 Note Discharge Instructions Thank you for allowing [place] to assist you with your healthcare needs. The following is importantdischarge information regarding your hospital visit. Diagnosis from Today's Visit Abdominal pain Nausea and vomiting What to Do Next Instructions from Your Care Team Take Tylenol as needed for pain, and Zofran for nausea/vomiting. Follow-up with your PCP. No qualifying data available. Post Acute Orders No qualifying data available. You Need to Schedule the Following Appointments Follow Up with Go to emergency room if symptoms worsen When:Within 2-4 days Follow Up with EMMA HARMON DO When:Within 2-4 days Where:[address] [place] [address] [phone] Allergies Benadryl Throat tightness Vicodin morphine Throat tightness vancomycin Throat symptom Medications Please ask your primary doctor or pharmacist before taking any other medication not listed, including over the counter drugs, herbal medications, vitamins and or supplements as they may interact withyour home medications. What How Much When Why Instructions Last Dose New ondansetron (Zofran 4 mg oral tablet) 1 tab(s) by mouth Every 8 hours as needed for Nausea/Vomiting Printed Prescription Unchanged amoxicillin-clavulanate (amoxicillin-clavulanate 875 mg-125 mg oral tablet) 1 tab(s) by mouth Every 12 hours Duration: 10 Days Unchanged aspirin (aspirin 81 mg oral delayed release tablet) 1 tab(s) by mouth Every day Unchanged biotin (biotin 1000 mcg oral tablet) 1 tab(s) by mouth Once a day Duration: 90 Days Unchanged cholecalciferol (cholecalciferol 50 mcg (2000 intl units) oral capsule) 2 cap by mouth Once a day Duration: 90 Days Unchanged cyanocobalamin (Vitamin B12 1000 mcg oral tablet) 1 tab(s) by mouth Once a day Duration: 90 Days Unchanged DME (DME MISCellaneous) See instructions Rotator cuff tear dispense one sling and swath; dx M75.100 Unchanged DME (DME MISCellaneous) See instructions dx I10; dispense one automated sphygmomanometer with supplies. Unchanged docusate (DOK 100 mg oral capsule) 1 cap by mouth Two (2) times a day Duration: 90 Days Unchanged ferrous sulfate (ferrous sulfate 325 mg (65 mg elemental iron) oral tablet) 1 tab(s) by mouth Two (2) times a day Duration: 90 Days Take with food. Unchanged lactobacillus acidophilus (lactobacillus acidophilus oral tablet) 1 tab(s) by mouth Once a day Duration: 90 Days Unchanged levETIRAcetam (levETIRAcetam 500 mg oral tablet) 1 tab(s) by mouth Two (2) times a day Unchanged levothyroxine (levothyroxine 112 mcg (0.112 mg) oral tablet) 1 tab(s) by mouth Once a day Unchanged losartan (losartan 25 mg oral tablet) 1 tab(s) by mouth Once a day Duration: 90 Days Unchanged multivitamin (Multivitamin) 1 tab(s) by mouth Every day Unchanged polyethylene glycol 3350 (MiraLax oral powder for reconstitution) 17 gram(s) by mouth Two (2) times a day Duration: 30 Days Unchanged rosuvastatin (rosuvastatin 20 mg oral tablet) 1 tab(s) by mouth Daily at bedtime Duration: 90 Days Unchanged sertraline (sertraline 100 mg oral tablet) 1.5 tab(s) by mouth Once a day Duration: 90 Days new dose Unchanged ubiquinone (Co Q-10 100 mg oral capsule) 1 cap by mouth Every day Unchanged zolpidem (zolpidem 5 mg oral tablet) 1 tab(s) by mouth Daily at bedtime as needed for as needed for sleep Please take this list to your next doctor s visit. Bring all medications you take, including over the counter medications, herbals and other supplements with you to your doctor s visit. Patients and families are reminded to discard old lists and to update any records with all medication providers or retail pharmacies. Education Materials Vomiting (Adult) Vomiting is a common symptom that may be due to different causes. These include gastroenteritis (stomach flu), food poisoning and gastritis. There are other more serious causes of vomiting which may be hard to diagnose early in the illness. Therefore, it is important to watch for the warning signs listed below. The main danger from repeated vomiting is dehydration. This is due to excess loss of water and minerals from the body. When this occurs, your body fluids must be replaced. Home care If symptoms are severe, rest at home for the next 24 hours. Because your symptoms may be from an infection, wash your hands often and well. If soap and water are not available, use alcohol-based handmade tile artist to keep from spreading the infection to others. Wash your hands for at least 20 seconds. Humming the happy birthday song twice while you wash is aneasy way to make sure you've washed for 20 seconds. Wash your hands after using the toilet, before and after preparing food, before eating food, after changing a diaper, cleaning a wound, caring for a sick person, and blowing your nose, coughing, or sneezing. You should also wash your hands after caring for someone who is sick, touching pet food, ortreats, and touching an animal, or animal waste. You may use acetaminophen or NSAID medicines like ibuprofen or naproxen to control fever, unless another medicine was prescribed. If you have chronic liver or kidney disease or ever had a stomach ulcer or gastrointestinal bleeding, talk with your doctor before using these medicines. Aspirin should never be used in anyone under 18 years of age who is ill with a fever. It may cause severe liver damage. Don't use NSAID medicines if you are already taking one for another condition (like arthritis) or are on aspirin (such as for heart disease, or after a stroke) Don't use tobacco and or drink alcohol, which may worsen your symptoms. If medicines for vomiting were prescribed, take as directed. Once vomiting stops, then follow these guidelines: During the first 12 to 24 hours follow the diet below: Fruit juices. Apple, grape juice, clear fruit drinks, and electrolyte replacement drinks. Beverages. Soft drinks without caffeine; mineral water (plain or flavored), decaffeinated tea and coffee. Soups. Clear broth and bouillon Desserts. Plain gelatin, ice pops, and fruit juice bars. As you feel better, you may add 6 to 8 ounces of yogurt per day. During the next 24 hours you may add the following to the above: Hot cereal, plain toast, bread, rolls, crackers Plain noodles, rice, mashed potatoes, chicken noodle or rice soup Unsweetened canned fruit such as applesauce, bananas (avoid pineapple and citrus) Limit caffeine and chocolate. No spices or seasonings except salt. During the next 24 hours: Gradually resume a normal diet, as you feel better and your symptoms lessen. Follow-up care Follow up with your healthcare provider, or as advised. When to seek medical advice Call your healthcare provider right away if any of these occur: Constant right-sided lower belly pain or increasing general belly pain Continued vomiting (unable to keep liquids down) for 24 hours Vomiting blood or coffee grounds Swollen belly Frequent diarrhea (more than 5 times a day); blood (red or black color) or mucus in diarrhea Reduced urine output or extreme thirst Weakness, dizziness or fainting Unusually drowsy or confused Fever of 100.4 F (38 C) oral or higher, or as directed Yellow color of the eyes or skin [id number] [employer]. [address] [place] [address], [place] [address]. All rights reserved. This information is not intended as a substitute for professional medical care. Always follow yourhealthcare professional's instructions. Abdominal Pain, Adhesions from Surgery Surgery on the abdomen can cause bands of fibrous scar tissue (also known as adhesions) to form. This is the most common side effect of any abdominal surgery. Adhesions can form bands around the intestine and cause a partial or complete blockage of the intestinal tract (intestinal obstruction). A blocked intestine requires surgery. Symptoms Abdominal adhesions can cause these symptoms: Severe abdominal pain, acute or chronic Nausea and vomiting Bloating Inability to pass gas or stool Adhesions are more common in people who have had one or more abdominal surgeries. Diagnosis is madeusing blood tests, X-ray, CT scan, rectal exam, and (in women) pelvic exam. Abdominal adhesions arepermanent. They can be treated by surgery to remove the scar tissue. However, this treatment may create more scar tissue, and the problem may reoccur. Pelvic adhesions can cause female infertility. Home care Rest as needed, until feeling better. Eat a diet low in fiber (called a low-residue diet). Foods allowed include refined breads, white rice, fruit and vegetable juices without pulp, tender meats. These foods will pass more easily throughthe intestine. Don't eat whole-grain foods, whole fruits and vegetables, tough meats, seeds or nuts until your symptoms go away. Follow-up care Follow up with your healthcare provider, or as advised. If X-rays were done, they will be read by a radiologist and you will be notified if there are any changes. Call 911 Call 911 if any of the following occur: Trouble breathing Confusion Very drowsy or trouble awakening Fainting or loss of consciousness Rapid heart rate When to seek medical advice Call your healthcare provider right away if any of these occur: Pain gets worse or moves to the right lower abdomen New or worsening vomiting or diarrhea Swelling of the abdomen Unable to pass stool for more than 3 days or feeling constipated with abdominal pain or swelling (even if it has been less than 3 days since you've passed stool) New fever over 100.4 F (38 C), or rising fever Blood in vomit or bowel movements (dark red or black color) Weakness, dizziness or fainting Chest, arm, back, neck or jaw pain (In women): Unexpected vaginal bleeding or missed period [id number] [employer]. [address] [place] [address], [place] [address]. All rights reserved. This information is not intended as a substitute for professional medical care. Always follow yourhealthcare professional's instructions. Additional Information VACCINATE! IT SAVES LIVES! Members of the community who have not yet received the COVID-19 vaccine and would like to receive it can visit one of [facility] vaccine clinics. There are many vaccine clinic locations within the State. For locations and available times, please visit [email or web address] It is important to note that some COVID mobile vaccine clinics are held outdoors and may be canceled in rainy or stormy conditions. To learn more about pediatric vaccinations (ages 5-11), we invite you to visit the [facility] webpage. [email or web address] [email or web address] learn more about the COVID-19 vaccine, we invite you to visit the CDC website for a list of frequently asked questions. https://www.cdc.gov/coronavirus/2019-ncov/vaccines/faq.html [facility] Patient Portal Access Instructions: Stay connected with your healthcare team and access your personal medical information anytime with the [facility] Patient Portal. If you would like a full copy of your medical records please contact the [facility] Medical Records Department Thursday through Thursday between 8a.m. and 4:30p.m. Please follow the directions below to access the portal: 1.Access the email account you provided upon registration to the hospital.2.Look for an invitation email from [facility].3.Open the email and access the invitation link: Accept Invitation to [facility]4.Fill in the required ramirez to create your account. Sign into [email or web address] with your username and password that you created in the above steps to stay up to date. You can then view a summary of results, a summary of your visits, and the ability to download your summaries to your computer or send the information securely to a physician. Remember that your healthcare information is confidential, so carefully consider who you will allow to register on the [facility] Patient Portal for access to your information. You can also access the [facility] Patient Portal on the [employer] van. Simply click on Health Records under [employer] and then click on the [employer] logo. HOW TO SAFELY DISPOSE OF PRESCRIPTION MEDICATIONS Please use one of the following methods to safely dispose of your unused medications. 1.Use a drug disposal kit: the drug disposal pouch allows you to safely discard your old and unuseddrugs. Ask your nurse to give you one when you are discharged.2.Visit a local take-back location: Many local pharmacies and police departments have programs that collect old and unwanted prescriptiondrugs. Call your local pharmacy or go to http://[email or web address] [email or web address] to find one close to you.3.Make use of household items: Use cat litter or old coffee grounds to dispose medications if other options arenot available. Mix your drugs with these household products, seal them in an airtight container andthrow it into the garbage. Call [facility]: [phone] to be sure your drugs can be disposed of in this way. Some medicines may require a different approach.4.Never flush your medications down the toilet. IF YOU HAVE BEEN PRESCRIBED AN OPIOIDS FOR PAIN If you have been prescribed an opioid (such as hydrocodone, oxycodone or morphine), it is critical to understand the possible side effects and risks of opioid pain medications. Even when taken as directed, opioids can have several side effects including: Tolerance, meaning you might need to take more of a medication for the same pain relief. Nausea, vomiting and/or constipation. Sleepiness, dizziness, dry mouth, confusion, depression or itching. Physical dependence, meaning you have withdrawal symptoms when a medication is stopped ? this can develop within a few days. KNOW YOUR RESPONSIBILITIES It is important to know exactly how much and how often to take the opioid pain medications you are prescribed. Never take opioids in higher amounts or more often than prescribed. Do not combine opioids with alcohol or other drugs that cause drowsiness, such as benzodiazepines, also known as benzos,including diazepam and alprazolam, muscle relaxants or sleep aids. Never sell or share prescriptionopioids. This is illegal. Store opioids in a secure place and out of reach of others (including children, family, friends and visitors). The last page(s) of this document has been signed and retained as a CHART COPY Signatures Patient Education Materials Vomiting (Adult) Abdominal Pain, Adhesions Medication Leaflets My discharge plan and instructions have been reviewed and explained to me and INORMA EDITH M understand my current condition and have read and understand these discharge instructions. I have received a written copy of the plan/instructions. If I have questions, I am aware that I should contact my doctor. 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 Multiplanar reformatted images are provided for review. Automated exposure control, iterative reconstruction, and/or weight based adjustment of the mA/kV was utilized to reduce the radiation dose to as low as reasonably achievable. COMPARISON: CT abdomen pelvis September 06, 2023 HISTORY: ORDERING SYSTEM PROVIDED HISTORY: Reason for Exam: abd pain, r/o SBO FINDINGS: The size, density, and morphology of the liver, spleen, adrenals, kidneys, pancreas and unopacified loops of bowel are unremarkable. Prior cholecystectomy. Nonobstructive 3 mm calcification midpole left kidney. The opacified aorta demonstrates normal size and morphology without aneurysmal dilation or dissection. Partial colectomy with reanastomosis. Appendix is normal. There are no enlarged lymph nodes by pathologic size criteria. There is no free fluid within the pelvis. The bladder and pelvic organs have an unremarkable CT appearance. Posterior decompression L4-S1. The osseous structures are without gross lytic or sclerotic lesion. The lung bases are clear. IMPRESSION: 1. Nonobstructive left nephrolithiasis. 2. Postsurgical changes without evidence of obstruction. Interpreted by: Ramu Baptiste MD Preliminary Report By: Ramu Baptiste MD Electronically signed By Ramu Baptiste MD Dictated Date: 09/16/2023 12:20:53 AM Prelim Date: 09/16/2023 12:22:50 AM Sign Date: 09/16/2023 12:22:50 AM [facility]ing [facility] Sinus rhythm Electronic Signature: LEE ANNCRISTAL 09/16/2023 00:27:20[facility] 07-07-2024 Note Discharge Instructions Thank you for allowing [place] to assist you with your healthcare needs. The following is importantdischarge information regarding your hospital visit. Diagnosis from Today's Visit Abdominal pain Constipation What to Do Next Instructions from Your Care Team Increase your stool softener to twice a day. Call your doctor tomorrow for follow-up No qualifying data available. Post Acute Orders No qualifying data available. You Need to Schedule the Following Appointments Follow Up with Go to emergency room if symptoms worsen When:Within 2-4 days Follow Up with EMMA HARMON DO When:Within 2-4 days Where:[address] [facility] [address] [phone] Allergies Benadryl Throat tightness Vicodin morphine Throat tightness vancomycin Throat symptom Education Materials Abdominal Pain Abdominal pain is pain in the stomach or belly area. Everyone has this pain from time to time. In many cases it goes away on its own. But abdominal pain can sometimes be due to a serious problem, such as appendicitis. So it s important to know when to get help. Causes of abdominal pain There are many possible causes of abdominal pain. Common causes in adults include: Constipation, diarrhea, or gas Stomach acid flowing back up into the esophagus (acid reflux or heartburn) Severe acid reflux, called GERD (gastroesophageal reflux disease) A sore in the lining of the stomach or small intestine (peptic ulcer) Inflammation of the gallbladder, liver, or pancreas Gallstones or kidney stones Appendicitis Intestinal blockage An internal organ pushing through a muscle or other tissue (hernia) Urinary tract infections In women, menstrual cramps, fibroids, ovarian cysts, pelvic inflammatory disease, or endometriosis Inflammation or infection of the intestines, including Crohn's disease and ulcerative colitis Irritable bowel syndrome Diagnosing the cause of abdominal pain Your healthcare provider will give you a physical exam help find the cause of your pain. If needed,you will have tests. Belly pain has many possible causes. So it can be hard to find the reason for your pain. Giving details about your pain can help. Tell your provider where and when you feel the pain, and what makes it better or worse. Also let your provider know if you have other symptoms such as: Fever Tiredness Upset stomach (nausea) Vomiting Changes in bathroom habits Blood in the stool or black, tarry stool Weight loss that you can't explain (involuntary weight loss?) Also report any family history of stomach or intestinal problems, or cancers. Tell your provider about all your alcohol use and drug use. Tell your provider about all medicines you use, including herbs, vitamins, and supplements. Treating abdominal pain Some causes of pain need emergency medical treatment right away. These include appendicitis or a bowel blockage. Other problems can be treated with rest, fluids, or medicines. Your healthcare provider can give you specific instructions for treatment or self-care based on what is causing your pain. If you have vomiting or diarrhea, sip water or other clear fluids. When you are ready to eat solid foods again, start with small amounts of xqis-fe-cofjdd, low- fat foods. These include apple sauce, toast, or crackers. When to get medical care Call 911 or go to the hospital right away if you: Can t pass stool and are vomiting Are vomiting blood or have bloody diarrhea or black, tarry diarrhea Have chest, neck, or shoulder pain Feel like you might pass out Have pain in your shoulder blades with nausea Have sudden, severe belly pain Have new, severe pain unlike any you have felt before Have a belly that is rigid, hard, and hurts to touch Call your healthcare provider if you have: Pain for more than 5 days Bloating for more than 2 days Diarrhea for more than 5 days A fever of 100.4 F (38 C) or higher, or as directed by your healthcare provider Pain that gets worse Weight loss for no reason Continued lack of appetite Blood in your stool How to prevent abdominal pain Here are some tips to help prevent abdominal pain: Eat smaller amounts of food at each meal. Don't eat greasy, fried, or other high-fat foods. Don't eat foods that give you gas. Exercise regularly. Drink plenty of fluids. To help prevent GERD symptoms: Quit smoking. Reduce alcohol and foods that increase stomach acid. Don't use aspirin or iikh-tus-twoxlay pain and fever medicines, if possible. This includes nonsteroidal anti-inflammatory drugs (NSAIDs). Lose excess weight. Finish eating at least 2 hours before you go to bed or lie down. Raise the head of your bed. 2809-3838 [employer]. [address] [place] [address], [place] [address]. All rights reserved. This information is not intended as a substitute for professional medical care. Always follow yourhealthcare professional's instructions. Additional Information VACCINATE! IT SAVES LIVES! Members of the community who have not yet received the COVID-19 vaccine and would like to receive it can visit one of [facility] vaccine clinics. There are many vaccine clinic locations within the [facility]. For locations and available times, please visit www.[email or web address].[email or web address]/. It is important to note that some COVID mobile vaccine clinics are held outdoors and may be canceled in rainy or stormy conditions. To learn more about pediatric vaccinations (ages 5-11), we invite you to visit the [facility] webpage. [email or web address]/[email or web address] [email or web address] learn more about the COVID-19 vaccine, we invite you to visit the CDC website for a list of frequently asked questions. https://www.cdc.gov/coronavirus/2019-ncov/vaccines/faq.html [facility] Patient Portal Access Instructions: Stay connected with your healthcare team and access your personal medical information anytime with the [facility] Patient Portal. If you would like a full copy of your medical records please contact the [facility] Medical Records Department Thursday through Thursday between 8a.m. and 4:30p.m. Please follow the directions below to access the portal: 1.Access the email account you provided upon registration to the hospital.2.Look for an invitation email from [facility].3.Open the email and access the invitation link: Accept Invitation to [facility]4.Fill in the required ramirez to create your account. Sign into [email or web address] with your username and password that you created in the above steps to stay up to date. You can then view a summary of results, a summary of your visits, and the ability to download your summaries to your computer or send the information securely to a physician. Remember that your healthcare information is confidential, so carefully consider who you will allow to register on the [facility] Patient Portal for access to your information. You can also access the [facility] Patient Portal on the [employer] van. Simply click on Health Records under [employer] and then click on the [employer] logo. HOW TO SAFELY DISPOSE OF PRESCRIPTION MEDICATIONS Please use one of the following methods to safely dispose of your unused medications. 1.Use a drug disposal kit: the drug disposal pouch allows you to safely discard your old and unuseddrugs. Ask your nurse to give you one when you are discharged.2.Visit a local take-back location: Many local pharmacies and police departments have programs that collect old and unwanted prescriptiondrugs. Call your local pharmacy or go to http://[email or web address] [email or web address]/[email or web address] to find one close to you.3.Make use of household items: Use cat litter or old coffee grounds to dispose medications if other options arenot available. Mix your drugs with these household products, seal them in an airtight container andthrow it into the garbage. Call [facility]: [phone] to be sure your drugs can be disposed of in this way. Some medicines may require a different approach.4.Never flush your medications down the toilet. IF YOU HAVE BEEN PRESCRIBED AN OPIOIDS FOR PAIN If you have been prescribed an opioid (such as hydrocodone, oxycodone or morphine), it is critical to understand the possible side effects and risks of opioid pain medications. Even when taken as directed, opioids can have several side effects including: Tolerance, meaning you might need to take more of a medication for the same pain relief. Nausea, vomiting and/or constipation. Sleepiness, dizziness, dry mouth, confusion, depression or itching. Physical dependence, meaning you have withdrawal symptoms when a medication is stopped ? this can develop within a few days. KNOW YOUR RESPONSIBILITIES It is important to know exactly how much and how often to take the opioid pain medications you are prescribed. Never take opioids in higher amounts or more often than prescribed. Do not combine opioids with alcohol or other drugs that cause drowsiness, such as benzodiazepines, also known as benzos,including diazepam and alprazolam, muscle relaxants or sleep aids. Never sell or share prescriptionopioids. This is illegal. Store opioids in a secure place and out of reach of others (including children, family, friends and visitors). The last page(s) of this document has been signed and retained as a CHART COPY Signatures Patient Education Materials Abdominal Pain Medication Leaflets My discharge plan and instructions have been reviewed and explained to me and I,AYALA ARANDA understand my current condition and have read and understand these discharge instructions. I have received a written copy of the plan/instructions. If I have questions, I am aware that I should contact my doctor. 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 Everyone has this pain from time to time. In many cases it goes away on its own. But abdominal pain can sometimes be due to a serious problem, such as appendicitis. So it s important to know when to get help. Causes of abdominal pain There are many possible causes of abdominal pain. Common causes in adults include: Constipation, diarrhea, or gas Stomach acid flowing back up into the esophagus (acid reflux or heartburn) Severe acid reflux, called GERD (gastroesophageal reflux disease) A sore in the lining of the stomach or small intestine (peptic ulcer) Inflammation of the gallbladder, liver, or pancreas Gallstones or kidney stones Appendicitis Intestinal blockage An internal organ pushing through a muscle or other tissue (hernia) Urinary tract infections In women, menstrual cramps, fibroids, ovarian cysts, pelvic inflammatory disease, or endometriosis Inflammation or infection of the intestines, including Crohn's disease and ulcerative colitis Irritable bowel syndrome Diagnosing the cause of abdominal pain Your healthcare provider will give you a physical exam help find the cause of your pain. If needed,you will have tests. Belly pain has many possible causes. So it can be hard to find the reason for your pain. Giving details about your pain can help. Tell your provider where and when you feel the pain, and what makes it better or worse. Also let your provider know if you have other symptoms such as: Fever Tiredness Upset stomach (nausea) Vomiting Changes in bathroom habits Blood in the stool or black, tarry stool Weight loss that you can't explain (involuntary weight loss?) Also report any family history of stomach or intestinal problems, or cancers. Tell your provider about all your alcohol use and drug use. Tell your provider about all medicines you use, including herbs, vitamins, and supplements. Treating abdominal pain Some causes of pain need emergency medical treatment right away. These include appendicitis or a bowel blockage. Other problems can be treated with rest, fluids, or medicines. Your healthcare provider can give you specific instructions for treatment or self-care based on what is causing your pain. If you have vomiting or diarrhea, sip water or other clear fluids. When you are ready to eat solid foods again, start with small amounts of prue-mu-heloqc, low- fat foods. These include apple sauce, toast, or crackers. When to get medical care Call 911 or go to the hospital right away if you: Can t pass stool and are vomiting Are vomiting blood or have bloody diarrhea or black, tarry diarrhea Have chest, neck, or shoulder pain Feel like you might pass out Have pain in your shoulder blades with nausea Have sudden, severe belly pain Have new, severe pain unlike any you have felt before Have a belly that is rigid, hard, and hurts to touch Call your healthcare provider if you have: Pain for more than 5 days Bloating for more than 2 days Diarrhea for more than 5 days A fever of 100.4 F (38 C) or higher, or as directed by your healthcare provider Pain that gets worse Weight loss for no reason Continued lack of appetite Blood in your stool How to prevent abdominal pain Here are some tips to help prevent abdominal pain: Eat smaller amounts of food at each meal. Don't eat greasy, fried, or other high-fat foods. Don't eat foods that give you gas. Exercise regularly. Drink plenty of fluids. To help prevent GERD symptoms: Quit smoking. Reduce alcohol and foods that increase stomach acid. Don't use aspirin or ebfp-ldv-dlooudh pain and fever medicines, if possible. This includes nonsteroidal anti-inflammatory drugs (NSAIDs). Lose excess weight. Finish eating at least 2 hours before you go to bed or lie down. Raise the head of your bed. [id number] [employer]. [address] [place] [address], [place] [address]. All rights reserved. This information is not intended as a substitute for professional medical care. Always follow yourhealthcare professional's instructions. Follow Up Care 09/06/2023 18:18:11 With:Go to emergency room if symptoms worsen Address:Unknown When:2-4 days With:EMMA HARMON DO Address: [address] [place] [address]- [phone] When:2-4 days [facility] 07-07-2024 Note ORIGINAL EXAMINATION: CT OF THE ABDOMEN AND PELVIS WITH CONTRAST 09/06/2023 8:22 pm TECHNIQUE: CT of the abdomen and pelvis was performed with the administration of intravenous contrast. Multiplanar reformatted images are provided for review. Automated exposure control, iterative reconstruction, and/or weight based adjustment of the mA/kV was utilized to reduce the radiation dose to as low as reasonably achievable. COMPARISON: CT abdomen pelvis April 02, 2023. HISTORY: ORDERING SYSTEM PROVIDED HISTORY: Reason for Exam: rlq pain with bloating x 1 day. Hx of hernis sx in the past abdominal pain FINDINGS: Lower Chest: No focal consolidation. Organs: Cholecystectomy. Similar appearing pancreatic head cyst. Parapelvic cysts of the kidneys. Nonobstructing nephrolithiasis in the left mid kidney. GI/Bowel: Moderate amount of stool in the colon and rectum. Fecalized loops of ileum. Postsurgical changes of the stomach and small bowel. Pelvis: Hysterectomy. Bladder unremarkable. Peritoneum/Retroperitoneum: Nonaneurysmal abdominal aorta. No enlarged lymph nodes. Similar appearing haziness to the root of the mesentery which has a wide differential (norman mesentery). Bones/Soft Tissues: Degenerative and postsurgical changes of the spine. IMPRESSION: Moderate amount of stool in the colon and rectum. Fecalized loops of distal ileum in the right lower quadrant which can be seen in slow transit. Interpreted by: Robinson Hurt Preliminary Report By: Robinson Hurt Electronically signed By Robinson Hurt Dictated Date: 09/06/2023 8:23:41 PM Prelim Date: 09/06/2023 8:29:26 PM Sign Date: 09/06/2023 8:29:26 PM Ordering Provider: ANNE-MARIE [facility]06-10-2024 Telephone encounter Note* Telephone Encounter - Jessica Hernandez MA - 08/10/2023 1:26 PM EDT 2 attempts Called and spoke with pt to schedule appt. Pt stated she is on another call right now pt state she will call us later to schedule. [facility] you [id number] Miscellaneous Notes* Telephone Encounter - Jessica Hernandez MA - 08/10/2023 1:26 PM EDT 2 attempts Called and spoke with pt to schedule appt. Pt stated she is on another call right now pt state she will call us later to schedule. Thank you * Telephone Encounter - Jessica Hernandez MA - 08/07/2023 11:33 AM EDT Called pt to schedule appt pt didn't answer, lmtcb. Thank you * Telephone Encounter - ELVIS Sweeney CNP - 08/06/2023 2:58 PM EDT Please schedule outpatient follow up with patient for hospital follow up. She has known hx of pancreatic cyst and mesenteric panniculitis. documented in this encounterSC[facility] [id number] Miscellaneous Notes* Care Coordination - Marilou Bee RN - 08/07/2023 2:15 PM EDT Images from the original note were not included. Care Management Progress Note 58 y.o. female with seizure like activity. She was given intranasal Versed by EMS. She was given 4mg of Ativan in the ED. Seizure like activity stopped. She had no post-ictal period. NIH 0. No focal neuro deficits. She denies h/o Seizure. She is also c/o diarrhea for few weeks now with intermittent abdominal pain. Denies alcohol abuse. Pt has DC orders in place. Met with pt and Denies HC needs lives with . [facility], will be delivered to room prior to DC. will transport home @DC today. Discharge Milestones and Delays Expected Date/Time: 08/07/2023 Disposition: Home or Self Care Transport status: No current request Discharge Milestones Completed Place discharge order Complete med reconciliation Case mgmt discharge readiness Clinical Stability Diagnsotic Workup Expected Discharge History Expected Date/Time Set By Reviewed At 08/07/2023 Tito Wells DO 08/07/2023 1:18 PM Sz 08/07/2023 Tito Wells DO 08/07/2023 1:15 PM 08/08/2023 Marilou Bee RN 08/06/2023 9:28 AM 08/08/2023 Lucy Bartlett DO 08/05/2023 10:00 PM 08/08/2023 Lucy Bartlett DO 08/05/2023 8:02 PM Length of Stay (Days): 0 GMLOS: 2.7 * Care Plan - Tamera Riggins RN - 08/07/2023 7:38 AM EDT Problem: Pain - Adult Goal: Verbalizes/displays adequate comfort level or baseline comfort level Outcome: Progressing Problem: Safety - Adult Goal: Free from fall injury Outcome: Progressing Problem: Discharge Planning Goal: Discharge to home or other facility with appropriate resources Outcome: Progressing Problem: Chronic Conditions and Co-morbidities Goal: Patient's chronic conditions and co-morbidity symptoms are monitored and maintained or improved Outcome: Progressing Problem: Knowledge Deficit Goal: Patient/family/caregiver demonstrates understanding of disease process, treatment plan, medications, and discharge instructions Outcome: Progressing Problem: Potential for Compromised Skin Integrity Goal: Skin Integrity is Maintained or Improved Outcome: Progressing Goal: Nutritional status is improving Outcome: Progressing Problem: Urinary Incontinence Goal: Perineal skin integrity is maintained or improved Outcome: Progressing * Rapid Response Note - Camila Walton RN - 08/06/2023 10:52 PM EDT Called by bedside RN to assess patient for seizure like activity in bilateral upper extremities. Onarrival to room, patient asleep on side. Easily arousable to voice. Alert and oriented x4. Pupils equal and reactive. No seizure like activity noted. Patient verbalizes worsening tremors in extremities when she is anxious. Moves all extremities purposefully. Patient does c/o of headache, anxiety, and feeling run down who just wants to sleep. Has PRN motrin and melatonin for sleep. Bedside RN is going to administer PRN medication. Spoke with Dr. Wilkes regarding assessment. No further ordersat this time. Instructed RN to call for any additional concerns. * Care Plan - Tamera Riggins RN - 08/06/2023 12:20 PM EDT Problem: Pain - Adult Goal: Verbalizes/displays adequate comfort level or baseline comfort level Outcome: Progressing Problem: Safety - Adult Goal: Free from fall injury Outcome: Progressing Problem: Discharge Planning Goal: Discharge to home or other facility with appropriate resources Outcome: Progressing Problem: Chronic Conditions and Co-morbidities Goal: Patient's chronic conditions and co-morbidity symptoms are monitored and maintained or improved Outcome: Progressing * Rapid Response Note - Emma Rodriguez RN - 08/06/2023 9:53 AM EDT Called to see for questionable seizure activity. Pts upper extremities continuously shaking on arrival, per nursing this has been going on for 20 minutes with legs noted shaking at times. Pt alert answering questions. VSS, eyes open but then resist pupil check. * Care Plan - Darrell Garnica RN - 08/06/2023 2:12 AM EDT Problem: Pain - Adult Goal: Verbalizes/displays adequate comfort level or baseline comfort level Outcome: Progressing Problem: Safety - Adult Goal: Free from fall injury Outcome: Progressing Problem: Discharge Planning Goal: Discharge to home or other facility with appropriate resources Outcome: Progressing Problem: Chronic Conditions and Co-morbidities Goal: Patient's chronic conditions and co-morbidity symptoms are monitored and maintained or improved Outcome: Progressing The patient is Moderately Stable - Low risk of patient condition declining or worsening The patient's goals for the shift include Pt will get rest The clinical goals for the shift include Pt will remain safe while on the unit * Rapid Response Note - Raissa Carroll RN - 08/05/2023 11:24 PM EDT Called to see patient for NIHSS evaluation. Per staff, facial droop noted, weakness of legs, some sensation changes on L leg. Evaluated per Rapid, no facial droop noted, slight sensory deficit noted L leg. Weakness bilat legs but admitted with this (prior to today no difficulty ambulating). Secure message to Dr Ponce, no stroke team indicated at this time. Dr Kang notified, orders received. Instructed to call for further issues/ concerns. documented in this [facility]06-07-2024 Note* Care Coordination - Marilou Bee RN - 08/07/2023 2:15 PM EDT Images from the original note were not included. Care Management Progress Note 58 y.o. female with seizure like activity. She was given intranasal Versed by EMS. She was given 4mg of Ativan in the ED. Seizure like activity stopped. She had no post-ictal period. NIH 0. No focal neuro deficits. She denies h/o Seizure. She is also c/o diarrhea for few weeks now with intermittent abdominal pain. Denies alcohol abuse. Pt has DC orders in place. Met with pt and Denies HC needs lives with . Rx's sent to [facility], will be delivered to room prior to DC. will transport home @DC today. Discharge Milestones and Delays Expected Date/Time: 08/07/2023 Disposition: Home or Self Care Transport status: No current request Discharge Milestones Completed Place discharge order Complete med reconciliation Case mgmt discharge readiness Clinical Stability Diagnsotic Workup Expected Discharge History Expected Date/Time Set By Reviewed At 08/07/2023 Tito Wells, DO 08/07/2023 1:18 PM Sz 08/07/2023 Tito Wells, DO 08/07/2023 1:15 PM 08/08/2023 Marilou Bee RN 08/06/2023 9:28 AM 08/08/2023 Lucy Bartlett, DO 08/05/2023 10:00 PM 08/08/2023 Lucy Bartlett, DO 08/05/2023 8:02 PM Length of Stay (Days): 0 GMLOS: 2.7 [facility] [id number] Note* Care Coordination - Marilou Bee RN - 08/07/2023 2:15 PM EDT Images from the original note were not included. Care Management Progress Note 58 y.o. female with seizure like activity. She was given intranasal Versed by EMS. She was given 4mg of Ativan in the ED. Seizure like activity stopped. She had no post-ictal period. NIH 0. No focal neuro deficits. She denies h/o Seizure. She is also c/o diarrhea for few weeks now with intermittent abdominal pain. Denies alcohol abuse. Pt has DC orders in place. Met with pt and Denies HC needs lives with . Rx's sent to [facility], will be delivered to room prior to DC. will transport home @DC today. Discharge Milestones and Delays Expected Date/Time: 08/07/2023 Disposition: Home or Self Care Transport status: No current request Discharge Milestones Completed Place discharge order Complete med reconciliation Case mgmt discharge readiness Clinical Stability Diagnsotic Workup Expected Discharge History Expected Date/Time Set By Reviewed At 08/07/2023 Tito Wells DO 08/07/2023 1:18 PM Javed 08/07/2023 Tito Wells, DO 08/07/2023 1:15 PM 08/08/2023 Marilou Bee RN 08/06/2023 9:28 AM 08/08/2023 Lucy Bartlett DO 08/05/2023 10:00 PM 08/08/2023 Lucy Bartlett DO 08/05/2023 8:02 PM Length of Stay (Days): 0 GMLOS: 2.7 [id number] Management Progress Note 58 y.o. female with seizure like activity. She was given intranasal Versed by EMS. She was given 4mg of Ativan in the ED. Seizure like activity stopped. She had no post-ictal period. NIH 0. No focal neuro deficits. She denies h/o Seizure. She is also c/o diarrhea for few weeks now with intermittent abdominal pain. Denies alcohol abuse. Pt has DC orders in place. Met with pt and Denies HC needs lives with . Rx's sent to [facility], will be delivered to room prior to DC. will transport home @DC today. Discharge Milestones and Delays Expected Date/Time: 08/07/2023 Disposition: Home or Self Care Transport status: No current request Discharge Milestones Completed Place discharge order Complete med reconciliation Case mgmt discharge readiness Clinical Stability Diagnsotic Workup Expected Discharge History Expected Date/Time Set By Reviewed At 08/07/2023 Tito Wells DO 08/07/2023 1:18 PM Javed 08/07/2023 Tito Wells DO 08/07/2023 1:15 PM 08/08/2023 Marilou Bee RN 08/06/2023 9:28 AM 08/08/2023 Lucy Bartlett DO 08/05/2023 10:00 PM 08/08/2023 Lucy Bartlett DO 08/05/2023 8:02 PM Length of Stay (Days): 0 GMLOS: 2.7[facility] [id number] History of Present illness Narrative * ELVIS Weems CNP - 08/07/2023 1:57 PM EDT Patient is scheduled with outpatient neurology on 09/10 at 10:30 AM. Appointment information is located in the patient's discharge instructions. * Magy Mullins - 08/07/2023 9:39 AM EDT Nutrition rescreen completed. Patient is NPO/Clear liquid >3 days. Refer to Dietitian. * Tito Wells DO - 08/07/2023 9:04 AM EDT Hospitalist Progress Note - [facility] - [facility] ([facility] 08/07/2023 9:04 AM [phone]: Please page me for patient care issues. [phone]: Please page [facility] Hospitalist - [facility] for any issues. Subjective and Objective: Admit Date: 08/05/2023 PCP: Emma Harmon DO Chief Complaint Patient presents with Seizures Per MES pt called 911 because she was not feeling well, witnessed seizure per EMS. Pt had tonic clonic like movements upon arrival. Pt became immediately alert and oriented after receiving IV ativan,no post ictal period noted. Pt has hx of DM, no seizure hx. EMS glucose was 205. Adult diet Clear liquid I/O last 3 completed shifts: In: 1500 (20 mL/kg) [IV Piggyback:1500] Out: - (0 mL/kg) Weight: 74.9 kg @IODETAILS@ @[id number]@ Medications: sodium chloride, 100 mL/hr, Last Rate: 100 mL/hr (08/07/23 0801) aspirin, 81 mg, Oral, Daily enoxaparin, 40 mg, SubCUTAneous, Daily ferrous sulfate, 325 mg, Oral, Daily with breakfast levETIRAcetam, 500 mg, IntraVENous, BID levothyroxine, 100 mcg, Oral, qAM AC losartan, 50 mg, Oral, Daily rosuvastatin, 20 mg, Oral, Daily sertraline, 100 mg, Oral, Daily Recent Labs 08/05/23182008/06/2341508/07/23521 WBC 9.8 6.5 5.0 HGB 12.7 10.7* 11.2* PLT 292 240 225 Recent Labs 08/05/23182008/06/2341508/07/23521 NA 143 138 139 K 4.0 3.5 3.5 CL 110* 112* 113* CO2 21* 21* 21* BUN 13 10 8 CREATININE 0.47* 0.37* 0.38* GLUCOSE 96 90 72 Recent Labs 08/05/23182008/06/23415 AST 41 32 ALT 35* 27 BILITOT 0.5 0.4 ALKPHOS 113 88 No results found for: TRIG, HDL, LDLCALC, CHOL No results found for: PHART, PO2ART, SHW5LXK No results for input(s): INR in the last 72 hours. No results for input(s): CKTOTAL, CKMB, TROPONINI in the last 72 hours. No results for input(s): DDIMER in the last 72 hours. Lab Results Component Value Date HGBA1C 5.2 08/05/2023 Lab Results Component Value Date TSH 3.775 08/06/2023 Urine Culture: No results found for this or any previous visit. Objective: Vitals: BP 124/61 (BP Location: Right arm, Patient Position: Sitting) Pulse (!) 49 Temp 36.6 C (97.9 F) (Temporal) Resp 18 Ht 5' 2 (1.575 m) Wt 165 lb 0.3 oz (74.9 kg) SpO2 93% BMI 30.18 kg/m Pulse Ox: SpO2 Av.3 % Min: 93 % Max: 97 % Supplemental O2: Past 24 hours events: GENERAL: alert without acute distress CARDIOVASCULAR: no rubs, no palpitations RESPIRATORY: no crackles, not using accessory muscles ABDOMEN: soft, no acute abd pain EXTREMITIES: no edema CHRONIC ANATOMY/TUBES/LINES: N/A Running Summary, Assessment, and Plan Ayala is a 58 y.o. female with past medical history below who presented to ED with Chief Complaint of seizure. Also having intermittent abdominal pain and diarrhea. Urine bland. CT abd/pelvis showed no acute pathology. Admitted for further evaluation and management. Brain MRI showed T2/FLAIR supratentorial white matter signal changes are nonspecific but likely sequelae of microvascular ischemia. GI consulted, no acute workup needed. Neuro consulted and seizure-like activity not consistent with actual seizure on EEG. Patient also is able to follow commands during pseudo-seizures and lacks post-ictal state after episodes. Psych consulted, re-started home Zoloft, bucio not require inpatient Psych. Neuro recommended Keppra 500 mg BID and outpatient follow up with Neuro. Discharge planning Acute, acute on chronic, unstable/uncontrolled chronic problems/diagnoses: Seizure Intermittent abdominal pain Diarrhea Lactic acidosis Acute mesenteric panniculitis. 1.5 cm mean axial pancreatic head cystic structure (was 1.1 cm in 2019) this finding may represent IPMN or pseudocyst Stable chronic problems affecting care, new non-acute diagnoses: Asymptomatic sinus bradycardia HTN Hypothyroid GERD Nephrolithiasis As a result of the above findings & factors, the following mgmt was pursued: - Started on Keppra - Neuro consulted - Stool studies - am labs, replace lytes prn - PT/OT/CM/SW as appropriate - delirium precautions: limit night-time awakening - DVT prophylaxis: Lovenox Complexity: Acute illness or injury posing a threat to life or body function (HIGH). Risk: Admission to hospital-level care was considered or occurred (HIGH). Advance Directive: Full Anticipated Discharge - Date - 08/06 - Location - home - Pending the following - dispo Total time spent (which include face to face and non face to face encounters) in minutes: 55 Toxic drug monitoring/narrow therapeutic index drug monitoring : # Drug name : Lovenox # Route administered : SQ # Method of monitoring : H&H and renal function Extended Emergency Contact Information Primary Emergency Contact: Jaylyn Aranda Relation: Spouse Secondary Emergency Contact: Vinicio Aranda Relation: Son Tito Truong Wells DO Division of Hospitalist Medicine Inpatient Medical Services/[facility] * Tamera Riggins RN - 08/06/2023 12:46 PM EDT Pt had seizure like activity. It began by right arm tremor/shakes, then increased to both arms. Shewas A&Ox4 the whole duration. She then began shaking her lower extremities. She was not able tograsp fingers and had weak push pulls during the episode. The episode happened for 35 minutes. A rapid was called, notified * Tito Wells, - 08/06/2023 8:44 AM EDT Hospitalist Progress Note - [facility] - [facility] [employer] ([facility]) 08/06/2023 8:44 AM [phone]: Please page me for patient care issues. [phone]: Please page [facility] Hospitalist - [facility] for any issues. Subjective and Objective: Admit Date: 08/05/2023 PCP: Emma Harmon DO Chief Complaint Patient presents with Seizures Per MES pt called 911 because she was not feeling well, witnessed seizure per EMS. Pt had tonic clonic like movements upon arrival. Pt became immediately alert and oriented after receiving IV ativan,no post ictal period noted. Pt has hx of DM, no seizure hx. EMS glucose was 205. NPO diet with enteral medications I/O last 3 completed shifts: In: 1500 (20 mL/kg) [IV Piggyback:1500] Out: - (0 mL/kg) Weight: 74.8 kg @IODETAILS@ @[id number]@ Medications: sodium chloride, 100 mL/hr, Last Rate: 100 mL/hr (08/05/232031) aspirin, 81 mg, Oral, Daily enoxaparin, 40 mg, SubCUTAneous, Daily ferrous sulfate, 325 mg, Oral, Daily with breakfast levETIRAcetam, 500 mg, IntraVENous, BID levothyroxine, 100 mcg, Oral, qAM AC losartan, 50 mg, Oral, Daily rosuvastatin, 20 mg, Oral, Daily sertraline, 100 mg, Oral, Daily Recent Labs 08/05/23182008/06/23 0416 WBC 9.8 6.5 HGB 12.7 10.7* PLT 292 240 Recent Labs 08/05/23182008/06/23 0416 NA 143 138 K 4.0 3.5 CL 110* 112* CO2 21* 21* BUN 13 10 CREATININE 0.47* 0.37* GLUCOSE 96 90 Recent Labs 08/05/23 1821 08/06/23 0416 AST 41 32 ALT 35* 27 BILITOT 0.5 0.4 ALKPHOS 113 88 No results found for: TRIG, HDL, LDLCALC, CHOL No results found for: PHART, PO2ART, KEE2YXO No results for input(s): INR in the last 72 hours. No results for input(s): CKTOTAL, CKMB, TROPONINI in the last 72 hours. No results for input(s): DDIMER in the last 72 hours. Lab Results Component Value Date HGBA1C 5.2 08/05/2023 Lab Results Component Value Date TSH 3.775 08/06/2023 Urine Culture: No results found for this or any previous visit. Objective: Vitals: BP 129/71 Pulse 54 Temp 36.3 C (97.3 F) (Temporal) Resp 16 Ht 5' 2 (1.575 m) Wt 165 lb (74.8 kg) SpO2 96% BMI 30.18 kg/m Pulse Ox: SpO2 Av.8 % Min: 95 % Max: 100 % Supplemental O2: Past 24 hours events: having suspected pseudo-seizures this morning GENERAL: appears comfortable and stated age CARDIOVASCULAR: regular RESPIRATORY: clear without rhonchi ABDOMEN: non distended EXTREMITIES: moving appropriately CHRONIC ANATOMY/TUBES/LINES: N/A Running Summary, Assessment, and Plan Ayala is a 58 y.o. female with past medical history below who presented to ED with Chief Complaint of seizure. Also having intermittent abdominal pain and diarrhea. Urine bland. CT abd/pelvis showed no acute pathology. Admitted for further evaluation and management. Brain MRI showed T2/FLAIR supratentorial white matter signal changes are nonspecific but likely sequelae of microvascular ischemia. EEG Neuro and Psych consulted Acute, acute on chronic, unstable/uncontrolled chronic problems/diagnoses: Seizure Intermittent abdominal pain Diarrhea Lactic acidosis Acute mesenteric panniculitis. 1.5 cm mean axial pancreatic head cystic structure (was 1.1 cm in 2019) this finding may represent IPMN or pseudocyst Stable chronic problems affecting care, new non-acute diagnoses: Asymptomatic sinus bradycardia HTN Hypothyroid GERD Nephrolithiasis As a result of the above findings & factors, the following mgmt was pursued: - EEG - Started on Keppra - Neuro consulted - Stool studies - GI consulted - am labs, replace lytes prn - PT/OT/CM/SW as appropriate - delirium precautions: limit night-time awakening - DVT prophylaxis: Lovenox Complexity: Acute illness or injury posing a threat to life or body function (HIGH). Risk: Admission to hospital-level care was considered or occurred (HIGH). Advance Directive: Full Anticipated Discharge - Date - 08/06 - Location - home vs. Psych? - Pending the following - Neuro and Psych eval Total time spent (which include face to face and non face to face encounters) in minutes: 56 Toxic drug monitoring/narrow therapeutic index drug monitoring : # Drug name : Lovenox # Route administered : SQ # Method of monitoring : H&H and renal function Extended Emergency Contact Information Primary Emergency Contact: Jaylyn Aranda Relation: Spouse Secondary Emergency Contact: Vinicio Aranda Relation: Son Tito Wells DO [facility] Services/[facility] documented in this [facility]06-07-[facility] Hospital Discharge instructions* Instructions* Tito Wells DO - 08/07/2023 1:16 PM EDT No driving until seizure free x 6 months. No working on heights x 6 months. No swimming or bathing x 6 months. No sharp object use x 6 months. Please inform the [facility] about the seizure event and surrender license per their discretion- until seizure free x 6 months. Please practice common sense measures to avoid bodily harm and injury. Follow up with PCP within 1 week to review all medications and findings of this admission. Thank you for letting me take part of your care. Wish you a speedy recovery. Call your PCP or go to ED if symptoms return. Thanks, Dr. Tito Wells [facility] [employer] [facility] Answering Service documented in this [facility]24 NoteHospitalist Discharge Summary - [facility] Acute [facility] ([facility] Ayala Aranda : 1965 Admit date: 08/05/2023 Discharge date: 08/07/2023 Admitting Physician: Yany Kang MD Primary Care Physician: Emma Harmon DO Recommended Follow-up: No follow-up provider specified. Disposition: Patient discharged in stable condition. Greater than 31 minutes spent discharging the patient and coming up with patient discharge plan. Follow up with Emma Harmon DO in 1-2 weeks as appropriate. Hospital Course: Ayala is a 58 y.o. female with past medical history below who presented to ED with Chief Complaint of seizure. Also having intermittent abdominal pain and diarrhea. Urine bland. CT abd/pelvis showed no acute pathology. Admitted for further evaluation and management. Brain MRI showed T2/FLAIR supratentorial white matter signal changes are nonspecific but likely sequelae of microvascular ischemia. GI consulted, no acute workup needed. Neuro consulted and seizure-like activity not consistent with actual seizure on EEG. Patient also is able to follow commands during pseudo-seizures and lacks post-ictal state after episodes. Psych consulted, re-started home Zoloft, bucio not require inpatient Psych. Neuro recommended Keppra 500 mg BID and outpatient follow up with Neuro. Discharge planning Medically stable for discharge Discharge Diagnoses: Acute, acute on chronic, unstable/uncontrolled chronic problems/diagnoses: Pseudo-seizure Intermittent abdominal pain Diarrhea Lactic acidosis Acute mesenteric panniculitis. 1.5 cm mean axial pancreatic head cystic structure (was 1.1 cm in 2019) this finding may represent IPMN or pseudocyst Stable chronic problems affecting care, new non-acute diagnoses: Asymptomatic sinus bradycardia HTN Hypothyroid GERD Nephrolithiasis Body mass index is 30.18 kg/m?., BMI Classification: Class 1 obesity (BMI 30.0-34.9) Adult diet Clear liquid Vitals: BP 124/61 (BP Location: Right arm, Patient Position: Sitting) Pulse (!) 49 Temp 36.6 ?C (97.9 ?F) (Temporal) Resp 18 Ht 5' 2 (1.575 m) Wt 165 lb 0.3 oz (74.9 kg) SpO2 93% BMI 30.18 kg/m? Pulse Ox: SpO2 Av % Min: 93 % Max: 97 % Supplemental O2: O2 Flow Rate (L/min): 2 L/min GENERAL: alert without acute distress CARDIOVASCULAR: no rubs, no palpitations RESPIRATORY: no crackles, not using accessory muscles ABDOMEN: soft, no acute abd pain EXTREMITIES: no edema Recent Labs 08/05/23182008/06/2341508/07/23521 WBC 9.8 6.5 5.0 HGB 12.7 10.7* 11.2* PLT 292 240 225 Recent Labs 08/05/23182008/06/2341508/07/23521 NA 143 138 139 K 4.0 3.5 3.5 CL 110* 112* 113* CO2 21* 21* 21* BUN 13 10 8 CREATININE 0.47* 0.37* 0.38* GLUCOSE 96 90 72 Recent Labs 08/05/23182008/06/23415 AST 41 32 ALT 35* 27 BILITOT 0.5 0.4 ALKPHOS 113 88 No results found for: TRIG, HDL, LDLCALC, CHOL No results found for: PHART, PO2ART, VAX5RDM No results for input(s): INR in the last 72 hours. No results for input(s): DDIMER in the last 72 hours. Lab Results Component Value Date HGBA1C 5.2 08/05/2023 Lab Results Component Value Date TSH 3.775 08/06/2023 Urine Culture: Results for orders placed or performed during the hospital encounter of 08/05/23 Urine culture Specimen: Urine, Clean Catch Result Value Ref Range Urine Culture Normal urogenital valeria present Imaging: EEG Result Date: 08/06/2023 James Butt DO 08/06/2023 1:31 PM [facility] [address] [place] [id number] ROUTINE EEG REPORT Patient Name: Ayala Aranda : 1965 Date of Study: 08/06/23 Duration Recorded: 23 minutes EEG#: [id number] SENIOR TECHNICAL WRITER: Sonia Woods PROVIDER REQUESTING STUDY: Yany Kang MD REASON FOR EXAM: Evaluate for seizures DIAGNOSIS TAG: Transient Neurologic Symptoms (TNS) HISTORY: Ayala Aranda is a 58 y.o. female came in with seizure like activity. She was given intranasal Versed by EMS. She was given 4mg of Ativan in the ED. Seizure like activity stopped. She had no post-ictal period. NIH 0. No focal neuro deficits. She denies h/o Seizure. She is also c/o diarrhea for few weeks now with intermittent abdominal pain. Denies alcohol abuse. MEDICATIONS: Current Facility-Administered Medications Medication Dose Route Frequency Provider Last Rate Last Admin aspirin EC tablet 81 mg 81 mg Oral Daily Yany Kang MD 81 mg at 08/05/232037 enoxaparin (Lovenox) syringe 40 mg 40 mg SubCUTAneous Daily Yany Kang MD 40 mg at 08/05/232038 ferrous sulfate tablet 325 mg 325 mg Oral Daily with breakfast Yany Kang MD levETIRAcetam in sodium chloride (Keppra) IVPB 500 mg 500 mg IntraVENous BID Yany Kang MD levothyroxine (Synthroid, Levoxyl) tablet 100 mcg 100 mcg Oral qAM AC Yany Kang MD 100 mcg at 08/06/23 0655 losartan (Cozaar) tabl (more content not included)...[facility]06-07-2024 Hospital course Narrative* Tito Wells DO - 08/07/2023 1:11 PM EDT Hospitalist Discharge Summary - [facility] [place] Aayla Aranda : 1965 Admit date: 08/05/2023 Discharge date: 08/07/2023 Admitting Physician: Yany Kang MD Primary Care Physician: Emma Harmon DO Recommended Follow-up: No follow-up provider specified. Disposition: Patient discharged in stable condition. Greater than 31 minutes spent discharging the patient and coming up with patient discharge plan. Follow up with Emma Harmon DO in 1-2 weeks as appropriate. Hospital Course: Ayala is a 58 y.o. female with past medical history below who presented to ED with Chief Complaint of seizure. Also having intermittent abdominal pain and diarrhea. Urine bland. CT abd/pelvis showed no acute pathology. Admitted for further evaluation and management. Brain MRI showed T2/FLAIR supratentorial white matter signal changes are nonspecific but likely sequelae of microvascular ischemia. GI consulted, no acute workup needed. Neuro consulted and seizure-like activity not consistent with actual seizure on EEG. Patient also is able to follow commands during pseudo-seizures and lacks post-ictal state after episodes. Psych consulted, re-started home Zoloft, bucio not require inpatient Psych. Neuro recommended Keppra 500 mg BID and outpatient follow up with Neuro. Discharge planning Medically stable for discharge Discharge Diagnoses: Acute, acute on chronic, unstable/uncontrolled chronic problems/diagnoses: Pseudo-seizure Intermittent abdominal pain Diarrhea Lactic acidosis Acute mesenteric panniculitis. 1.5 cm mean axial pancreatic head cystic structure (was 1.1 cm in 2019) this finding may represent IPMN or pseudocyst Stable chronic problems affecting care, new non-acute diagnoses: Asymptomatic sinus bradycardia HTN Hypothyroid GERD Nephrolithiasis Body mass index is 30.18 kg/m ., BMI Classification: Class 1 obesity (BMI 30.0-34.9) Adult diet Clear liquid Vitals: BP 124/61 (BP Location: Right arm, Patient Position: Sitting) Pulse (!) 49 Temp 36.6 C (97.9 F) (Temporal) Resp 18 Ht 5' 2 (1.575 m) Wt 165 lb 0.3 oz (74.9 kg) SpO2 93% BMI 30.18 kg/m Pulse Ox: SpO2 Av % Min: 93 % Max: 97 % Supplemental O2: O2 Flow Rate (L/min): 2 L/min GENERAL: alert without acute distress CARDIOVASCULAR: no rubs, no palpitations RESPIRATORY: no crackles, not using accessory muscles ABDOMEN: soft, no acute abd pain EXTREMITIES: no edema Recent Labs 08/05/23182008/06/2341508/07/23521 WBC 9.8 6.5 5.0 HGB 12.7 10.7* 11.2* PLT 292 240 225 Recent Labs 08/05/23182008/06/2341508/07/23521 NA 143 138 139 K 4.0 3.5 3.5 CL 110* 112* 113* CO2 21* 21* 21* BUN 13 10 8 CREATININE 0.47* 0.37* 0.38* GLUCOSE 96 90 72 Recent Labs 06/05/24 1821 06/06/24 0416 AST 41 32 ALT 35* 27 BILITOT 0.5 0.4 ALKPHOS 113 88 No results found for: TRIG, HDL, LDLCALC, CHOL No results found for: PHART, PO2ART, [id number] No results for input(s): INR in the last 72 hours. No results for input(s): DDIMER in the last 72 hours. Lab Results Component Value Date HGBA1C 5.2 08/05/2023 Lab Results Component Value Date TSH 3.775 08/06/2023 Urine Culture: Results for orders placed or performed during the hospital encounter of 08/05/23 Urine culture Specimen: Urine, Clean Catch Result Value Ref Range Urine Culture Normal urogenital valeria present Imaging: EEG Result Date: 08/06/2023 James Butt DO 08/06/2023 1:31 PM [facility] [address] [place] [id number] ROUTINE EEG REPORT Patient Name: Ayala Aranda : 1965 Date of Study: 08/06/23 Duration Recorded: 23 minutes EEG#: [id number] SENIOR TECHNICAL WRITER:Sonia Woods PROVIDER REQUESTING STUDY: Yany Kang MD REASON FOR EXAM: Evaluate for seizures DIAGNOSIS TAG: Transient Neurologic Symptoms (TNS) HISTORY: Ayala Aranda is a 58 y.o. female came in with seizure like activity. She was given intranasal Versed by EMS. She was given 4mg of Ativan in the ED. Seizure like activity stopped. She had no post-ictal period. NIH 0. No focal neuro deficits. Shedenies h/o Seizure. She is also c/o diarrhea for few weeks now with intermittent abdominal pain. Denies alcohol abuse. MEDICATIONS: Current Facility-Administered Medications Medication Dose Route Frequency Provider Last Rate Last Admin aspirin EC tablet 81 mg 81 mg Oral Daily Yany Kang MD 81 mgat 08/05/232037 enoxaparin (Lovenox) syringe 40 mg 40 mg SubCUTAneous Daily Yany Kang MD 40 mgat 08/05/232038 ferrous sulfate tablet 325 mg 325 mg Oral Daily with breakfast Yany Kang MD levETIRAcetam in sodium chloride (Keppra) IVPB 500 mg 500 mg IntraVENous BID Nizam Alejandro Kang MD levothyroxine (Synthroid, Levoxyl) tablet 100 mcg 100 mcg Oral qAM AC Yany Kang MD 100 mcg at 08/06/23654 losartan (Cozaar) tablet 50 mg 50 mg Oral Daily Yany Kang MD 50 mg at 08/05/232037 melatonin tablet 3 mg 3 mg Oral Nightly PRN Yany Kang MD ondansetron ODT (Zofran-ODT) disintegrating tablet 4 mg 4 mg Oral q8h PRN Echom Alejandro Kang MD Or ondansetron (Zofran) injection 4 mg 4 mg IntraVENous q6h PRN Nizam UCarola Kang MD polyethylene glycol (PEG) 3350 (Miralax) packet 17 g 17 g Oral Daily PRN Yany Kang MD rosuvastatin (Crestor) tablet 20 mg 20 mg Oral Daily Nijoaquinam Alejandro Kang MD 20 mg at 08/05/232037 sertraline (Zoloft) tablet 100 mg 100 mg Oral Daily Yany Kang MD 100 mg at 08/05/232037sodium chloride 0.9 % infusion 100 mL/hr IntraVENous Continuous Yany Kang MD 100 mL/hr at 08/05/232031 100 mL/hr at 08/05/232031 TECHNICAL ASPECTS: This routine scalp EEG study with video was carried out at [facility]. Scalp electrodes were positioned in person by an medical lab technologist, following patient education, according to the 10-20 International system of electrode placement and maintained for integrity and quality of the recording. EEG data was recorded continuously and digitally stored. The medical lab technologist reviewed all automated detections and manual events and prepared the data for archiving and provider review. Referential and bipolar montages were used for review. TECHNOLOGIST NOTES: No skull or scalp defects were observed. BACKGROUND ACTIVITY: Posterior background activity: A continuous organized and well-modulated 8-9 Hz, 20-40 uV rhythm was seen symmetricallyover the posterior head regions bilaterally. Beta range: Fronto-centrally predominant beta range activity (15-25 Hz, 10-20 uV) was seen. Sleep: Stage N2 sleep was reached as evidenced by the appearance of vertex waves and sleep spindles seen symmetrically over the central head regions bilaterally. Normal Variants: No normal variants were identified. 08:46:25 -Continuous slowing, generalized (AP Bipolar) SLOWING: No abnormal slowing was seen. INTERICTAL EPILEPTIFORM ACTIVITY: No epileptiform activity was seen. ICTAL ACTIVITY: No ictal activity was seen. NON-EPILEPTIC EVENTS: None. ACTIVATION PROCEDURES: Photic stimulation was not performed. Hyperventilation was not performed. IMPRESSION AND ACTIONS TAKEN: This routine EEG with video is within normal limits for the awake and sleep states. No abnormal slowing, interictal epileptiform activity, nor seizures are observed. Dwayne Hawkins, PhD Clinical Neurophysiologist James Butt DO MR brain wo contrast Result Date: 08/06/2023 Patient Name: AYALA ARANDA : 1965 [facility]#: [id number] Exam Date/Time: 08/06/2023 03:46 Procedure: MR BRAIN WO CONTRAST Ordering Provider: KANG NIZAM Reason For Exam: Neuro deficit, acute, stroke suspected EXAMINATION: MR BRAIN WO CONTRAST HISTORY: Seizure-like activity. TECHNIQUE: Multiplanar, multisequence MRI of the brain was performed without contrast. Coronal thick slab T2 and FLAIR sequences were performed. Coronal high-resolution MPRAGE was performed. COMPARISON: Head CT 08/05/2023 RESULT: Computer age sequence is degraded by motion. Acute Change: There is no evidence of an acute intracranial process. Hemorrhage: No evidence of prior parenchymal hemorrhage on the gradient echo images. Mass Lesion/ Mass Effect: No evidence of an intracranial mass or extra-axial fluid collection. No significant mass effect. Chronic Change: Scattered patchy areas of increased T2 and FLAIR signal are present in the supratentorial white matter which is a nonspecific finding but likely represents mild chronic microvascular ischemia. Parenchyma: No significant volume loss for age. No evidence of focal developmental or structural abnormality. Hippocampal formations: Symmetric and normal in volume, morphology and signal intensity. Ventricles: Normal caliber and morphology. Skull Base: Hypothalamic and pituitary region are grossly normal. Craniocervical junction is normal. No significant marrow replacement process. Vasculature: Major intracranial arterial structures, and dural venous sinuses show typical flow void, suggesting patency by spin echo criteria. Other: Minimal mucosal thickening of the ethmoid air cells. Small left mastoid effusion. Theremaining visualized paranasal sinuses and right mastoid air cells are clear. The orbits and extracranial soft tissues are unremarkable. No acute intracranial abnormality. T2/FLAIR supratentorial white matter signal changes are nonspecific but likely sequelae of microvascular ischemia. No evidence of a focal developmental or structureabnormality. No evidence of mesial temporal sclerosis. Correlate with EEG. Report Dictated on Electronically Signed By: Zeke Bailey MD Electronically Signed Date/Time: 08/06/2023 8:06 AM EDT ECG 12 lead Sinus rhythm Normal axis No ST segment elevations No significant changes from previous ECG Electronically Signed On 08-05-2023 23:28:14 EDT by Ramu Hilario POCT glucose meter Result Date: 08/05/2023 Performed by: [facility], [address] [place] [address] CLIA ID: [id number] CT abdomen pelvis w contrast Result Date: 08/05/2023 Patient Name: AYALA ARANDA : 1965 [facility]#: [id number] Exam Date/Time: 08/05/2023 18:59 Procedure: CT ABDOMEN PELVIS W CONTRAST Ordering Provider: CALABRESE YASMIN Reason For Exam: Abdominal pain, acute, nonlocalized CT ABDOMEN AND PELVIS WITH CONTRASTCLINICAL INDICATION: Acute abdominal pain. TECHNIQUE: Multi-axial 3mm sections through the abdomen and pelvis following 75 mL of Isoview contrast media. No oral contrast was administered. Coronal andsagittal reconstructions were reviewed. Dose reduction was employed with automated exposure control. COMPARISON: 05/17/2018. FINDINGS: Lung bases: Minimal left basilar atelectasis. Small sliding internal hernia. Liver: Normal size and contours. No focal lesion. Stomach: Gastric bypass with [id number] is redemonstrated. Biliary tree: Gallbladder is surgically absent. No biliary dilatation. Spleen: Normal. Adrenals: Normal. Pancreas: Pancreatic head cystic structure measures 1.5 cm mean axial diameter (was 1.1 cm). No pancreatic ductal dilatation. Normal enhancing pancreatic gland. Kidneys: Interval 3 mm left mid renal nonobstructing calculus. Symmetric contrast enhancement without evidence of hydronephrosis. No focal renal lesion is identified. Free air or fluid: None. Mesenteric/retroperitoneal: Wispy stranding within the mid left mesentery suggest acute panniculitis. Aorta: Atherosclerotic calcific aortic and iliac artery changes. Bowel: The appendix is not visualized and no pericecal inflammatory changes are evident.. No dilatation is noted. Abdominal wall: No ventral hernia isevident. Pelvic organs/viscera: No mass identified. Urinary bladder is normally distended. No pelvic free fluid. Uterus is surgically absent Inguinal lymphadenopathy: None. Osseous structures: No osseous abnormality. No acute abdominal or pelvic findings to explain symptoms. Acute mesenteric panniculitis. Interval 3 mm nonobstructing left renal calculus. No hydronephrosis or hydroureter. 1.5 cm mean axial pancreatic head cystic structure (was 1.1 cm in 2019) this finding may represent IPMN or pseudocyst. ReportDictated on Electronically Signed By: Ramu Cruz DO ElectronicallySigned Date/Time: 08/05/2023 7:[address] head wo IV contrast Result Date: 08/05/2023 Patient Name: AYALA ARANDA : 1965 Exam Date/Time: 08/05/2023 18:59 Procedure: CT HEAD WO IV CONTRAST Ordering Provider: MARRERO MICHELLE Reason For Exam: Seizure disorder, clinical change CT BRAIN WITHOUT CONTRAST CLINICAL INDICATION: Seizure disorder, clinical change TECHNIQUE: CT scan of the brain without IV contrast. Multiplanarreformations. Dose reduction was employed with automated exposure control. COMPARISON: April,. FINDINGS: No apparent mass or mass effect, hemorrhage, midline shift or hydrocephalus. No evidence of acute cortical infarct. No abnormal, extra-axial fluid or air collection. Patchy low density in the periventricular and subcortical white matter is nonspecific, but may relate to chronic small vessel ischemic change. Mild, diffuse volume loss. Osseous calvarium grossly intact. 1. No acute intracranial findings. 2. Probable chronic ischemic and atrophic changes. Report Dictated on Electronically Signed By: Adan Kirk MD Electronically Signed Date/Time: 08/05/2023 7:04 PM EDT POCT glucose meter Result Date: 08/05/2023 Performed by: [facility], [address] [place], [place] [address] [address] CLIA ID: [id number] Consults: IP CONSULT TO GI IP CONSULT TO NEUROLOGY IP WOUND CARE NURSE CONSULT TO EVAL IP CONSULT TO PSYCHIATRY Discharge Medications: Medication List ASK your doctor about these medications aspirin 81 MG EC tablet Take 1 tablet (81 mg) by mouth daily. Biotin 5 MG tablet dispersible cholecalciferol 50 MCG (2000 UT) capsule Commonly known as: Vitamin D-3 cyanocobalamin 1000 MCG tablet Commonly known as: Vitamin B-12 DSS 100 MG capsule ferrous sulfate 325 (65 Fe) MG tablet levothyroxine 100 MCG capsule Commonly known as: Tirosint losartan 50 MG tablet Commonly known as: Cozaar Take 1 tablet (50 mg) by mouth daily. Do not start before May 20, 2023. rosuvastatin 20 MG tablet Commonly known as: Crestor sertraline 100 MG tablet Commonly known as: Zoloft Signed: Tito Wells DO 08/07/2023, 1:13 PM documented in this encounterSCleveland Clinic Mercy [id number] Telephone encounter Note* Telephone Encounter - Jessica Hernandez MA - 08/07/2023 11:33 AM EDT Called pt to schedule appt pt didn't answer, lmtcb. [facility] you [id number] Miscellaneous Notes* Telephone Encounter - Jessica Hernandez MA - 08/07/2023 11:33 AM EDT Called pt to schedule appt pt didn't answer, lmtcb. Thank you * Telephone Encounter - ELVIS Sweeney CNP - 08/06/2023 2:58 PM EDT Please schedule outpatient follow up with patient for hospital follow up. She has known hx of pancreatic cyst and mesenteric panniculitis. documented in this [facility]06-07-2024 NoteHospitalist Progress Note - [facility] [employer] [facility] ([facility] 08/07/2023 9:04 AM [phone]: Please page me for patient care issues. [phone]: Please page [facility] Hospitalist - [facility] for any issues. Subjective and Objective: Admit Date: 08/05/2023 PCP: Emma Harmon DO Chief Complaint Patient presents with Seizures Per MES pt called 911 because she was not feeling well, witnessed seizure per EMS. Pt had tonic clonic like movements upon arrival. Pt became immediately alert and oriented after receiving IV ativan, no post ictal period noted. Pt has hx of DM, no seizure hx. EMS glucose was 205. Adult diet Clear liquid I/O last 3 completed shifts: In: 1500 (20 mL/kg) [IV Piggyback:1500] Out: - (0 mL/kg) Weight: 74.9 kg @IODETAILS@ @SXDA2POSCDP@ Medications: sodium chloride, 100 mL/hr, Last Rate: 100 mL/hr (08/07/23 0801) aspirin, 81 mg, Oral, Daily enoxaparin, 40 mg, SubCUTAneous, Daily ferrous sulfate, 325 mg, Oral, Daily with breakfast levETIRAcetam, 500 mg, IntraVENous, BID levothyroxine, 100 mcg, Oral, qAM AC losartan, 50 mg, Oral, Daily rosuvastatin, 20 mg, Oral, Daily sertraline, 100 mg, Oral, Daily Recent Labs 08/05/23182008/06/236 08/07/23 0522 WBC 9.8 6.5 5.0 HGB 12.7 10.7* 11.2* PLT 292 240 225 Recent Labs 08/05/23182008/06/236 08/07/23 0522 NA 143 138 139 K 4.0 3.5 3.5 CL 110* 112* 113* CO2 21* 21* 21* BUN 13 10 8 CREATININE 0.47* 0.37* 0.38* GLUCOSE 96 90 72 Recent Labs 08/05/23182008/06/23415 AST 41 32 ALT 35* 27 BILITOT 0.5 0.4 ALKPHOS 113 88 No results found for: TRIG, HDL, LDLCALC, CHOL No results found for: PHART, PO2ART, [id number] No results for input(s): INR in the last 72 hours. No results for input(s): CKTOTAL, CKMB, TROPONINI in the last 72 hours. No results for input(s): DDIMER in the last 72 hours. Lab Results Component Value Date HGBA1C 5.2 08/05/2023 Lab Results Component Value Date TSH 3.775 08/06/2023 Urine Culture: No results found for this or any previous visit. Objective: Vitals: BP 124/61 (BP Location: Right arm, Patient Position: Sitting) Pulse (!) 49 Temp 36.6 ?C (97.9 ?F) (Temporal) Resp 18 Ht 5' 2 (1.575 m) Wt 165 lb 0.3 oz (74.9 kg) SpO2 93% BMI 30.18 kg/m? Pulse Ox: SpO2 Av.3 % Min: 93 % Max: 97 % Supplemental O2: Past 24 hours events: GENERAL: alert without acute distress CARDIOVASCULAR: no rubs, no palpitations RESPIRATORY: no crackles, not using accessory muscles ABDOMEN: soft, no acute abd pain EXTREMITIES: no edema CHRONIC ANATOMY/TUBES/LINES: N/A Running Summary, Assessment, and Plan Ayala is a 58 y.o. female with past medical history below who presented to ED with Chief Complaint of seizure. Also having intermittent abdominal pain and diarrhea. Urine bland. CT abd/pelvis showed no acute pathology. Admitted for further evaluation and management. Brain MRI showed T2/FLAIR supratentorial white matter signal changes are nonspecific but likely sequelae of microvascular ischemia. GI consulted, no acute workup needed. Neuro consulted and seizure-like activity not consistent with actual seizure on EEG. Patient also is able to follow commands during pseudo-seizures and lacks post-ictal state after episodes. Psych consulted, re-started home Zoloft, bucio not require inpatient Psych. Neuro recommended Keppra 500 mg BID and outpatient follow up with Neuro. Discharge planning Acute, acute on chronic, unstable/uncontrolled chronic problems/diagnoses: Seizure Intermittent abdominal pain Diarrhea Lactic acidosis Acute mesenteric panniculitis. 1.5 cm mean axial pancreatic head cystic structure (was 1.1 cm in 2019) this finding may represent IPMN or pseudocyst Stable chronic problems affecting care, new non-acute diagnoses: Asymptomatic sinus bradycardia HTN Hypothyroid GERD Nephrolithiasis As a result of the above findings & factors, the following mgmt was pursued: - Started on Keppra - Neuro consulted - Stool studies - am labs, replace lytes prn - PT/OT/CM/SW as appropriate - delirium precautions: limit night-time awakening - DVT prophylaxis: Lovenox Complexity: Acute illness or injury posing a threat to life or body function (HIGH). Risk: Admission to hospital-level care was considered or occurred (HIGH). Advance Directive: Full Anticipated Discharge - Date - 08/06 - Location - home - Pending the following - dispo Total time spent (which include face to face and non face to face encounters) in minutes: 55 Toxic drug monitoring/narrow therapeutic index drug monitoring : # Drug name : Lovenox # Route administered : SQ # Method of monitoring : H&H and renal function Extended Emergency Contact Information Primary Emergency Contact: Jaylyn Aranda Relation: Spouse Secondary Emergency Contact: NormaVinicio (more content not included)...[facility]06-07-2024 Plan of care note* Care Plan - Tamera Riggins RN - 08/07/2023 7:38 AM EDT Problem: Pain - Adult Goal: Verbalizes/displays adequate comfort level or baseline comfort level Outcome: Progressing Problem: Safety - Adult Goal: Free from fall injury Outcome: Progressing Problem: Discharge Planning Goal: Discharge to home or other facility with appropriate resources Outcome: Progressing Problem: Chronic Conditions and Co-morbidities Goal: Patient's chronic conditions and co-morbidity symptoms are monitored and maintained or improved Outcome: Progressing Problem: Knowledge Deficit Goal: Patient/family/caregiver demonstrates understanding of disease process, treatment plan, medications, and discharge instructions Outcome: Progressing Problem: Potential for Compromised Skin Integrity Goal: Skin Integrity is Maintained or Improved Outcome: Progressing Goal: Nutritional status is improving Outcome: Progressing Problem: Urinary Incontinence Goal: Perineal skin integrity is maintained or improved Outcome: Progressing [facility] [id number] Note* Rapid Response Note - Camila Walton RN - 08/06/2023 10:52 PM EDT Called by bedside RN to assess patient for seizure like activity in bilateral upper extremities. Onarrival to room, patient asleep on side. Easily arousable to voice. Alert and oriented x4. Pupils equal and reactive. No seizure like activity noted. Patient verbalizes worsening tremors in extremities when she is anxious. Moves all extremities purposefully. Patient does c/o of headache, anxiety, and feeling run down who just wants to sleep. Has PRN motrin and melatonin for sleep. Bedside RN is going to administer PRN medication. Spoke with Dr. Wilkes regarding assessment. No further ordersat this time. Instructed RN to call for any additional concerns. [facility] [id number] Note* Rapid Response Note - Camila Walton RN - 08/06/2023 10:52 PM EDT Called by bedside RN to assess patient for seizure like activity in bilateral upper extremities. Onarrival to room, patient asleep on side. Easily arousable to voice. Alert and oriented x4. Pupils equal and reactive. No seizure like activity noted. Patient verbalizes worsening tremors in extremities when she is anxious. Moves all extremities purposefully. Patient does c/o of headache, anxiety, and feeling run down who just wants to sleep. Has PRN motrin and melatonin for sleep. Bedside RN is going to administer PRN medication. Spoke with Dr. Wilkes regarding assessment. No further ordersat this time. Instructed RN to call for any additional concerns. [facility] [id number] Consult note* Emma Oglesby MD - 08/06/2023 3:25 PM EDTAssociated Order(s): IP CONSULT TO PSYCHIATRY Department of Psychiatry Consult Service Attending Consult Note Reason for Consult: Concern for pseudo-seizures and malingering Requesting Physician: Russell CHIEF COMPLAINT: Chief Complaint Patient presents with Seizures Per MES pt called 911 because she was not feeling well, witnessed seizure per EMS. Pt had tonic clonic like movements upon arrival. Pt became immediately alert and oriented after receiving IV ativan,no post ictal period noted. Pt has hx of DM, no seizure hx. EMS glucose was 205. History obtained from: patient and past medical records HISTORY OF PRESENT ILLNESS: The patient is a 58 y.o.female with significant past medical history of thao en y gastric bypass, GERD, chronic pain, hypothyroidism, and anxiety who arrived by ambulance after experiencing seizure-like activity at home. Pt was subsequently admitted for seizure workup and psychiatry was consulted. Pt is a&ox3, awake and cooperative. Reports feeling abnormally tired recently. Notes yesterday she felt tired and didn't eat much aside from a cheeseburger for lunch. She was laying in bed at home and felt shaky, starting in her b/l arms and then spreading through her body. No loss of consciousness noted. Pt states she couldn't talk but was aware of the episode. Denies tongue bitting or incont inence. Denies any postictal symptoms. Has had two similar but brief episodes since admission. No other seizure hx known for the patient or her family. Denies recent med changes outside of starting Ambien ~2 weeks ago. Endorses compliance with her home medications and vitamin regimen. Notes some increased stress lately as one of her sons is disabled from a stroke and in a senior living for total care, while her other son has been having issues with alcoholism and lives at home with her. Started psychotropics through her PCP about a month or two ago (sertraline + unknown sleep med, later Ambien). Feels the regimen has been somewhat helpful. Collateral was obtained from the following individual: chart review REVIEW OF SYSTEMS: Medical Review Of Systems: A comprehensive review of systems was negative except for: Constitutional: positive for fatigue Cardiovascular: positive for bradycardia Gastrointestinal: positive for low appetite3 Neurological: positive for Symptoms; Neuro: tremors Behavioral/Psych: positive for Symptoms; Pyschiatric: anxiety and sleep disturbance Psychiatric Review Of Systems: Depressed mood: a little Sleep changes: problems falling asleep Appetite changes: decreased Weight changes: unknown Energy changes: low Loss of interest/anhedonia:Denies Somatic symptoms: see HPI Libido changes: Anxiety/panic: y Guilty/hopeless:Denies Self-injurious/risky behavior:Denies Suicidal ideation:Denies Homicidal ideation:Denies Access to weapons:Denies Lifetime Psychiatric Review Of Systems: Ofelia or hypomania:Denies Panic attacks: rare Phobias:Denies PTSD:Denies Obsessions/compulsions:Denies Hallucinations:Denies Delusions:Denies PAST PSYCHIATRIC HISTORY: The patient is currently receiving care for the above psychiatric illness with her PCP. 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 COLONOSCOPY 04/2018 CYSTOSCOPY 03/17/2014 DR Luo. bilat urerteral stent placement. GASTRIC BYPASS 02/12/2018 LRYGB- Dr. Gomez [facility] HERNIA REPAIR 01/21/2019 Dr. Riley - [facility] General Surgery-retrorectus ventral repair w mesh. exp lap, BABATUNDE. HYSTERECTOMY 2008 low transverse INCISIONAL HERNIA REPAIR 02/03/2012 excision of syntheti mesh and use of Strattice with component separation. INCISIONAL HERNIA REPAIR 09/09/2011 [place] NECK SURGERY 2002 OTHER SURGICAL HISTORY 11/03/2019 panniculectomy with vac prevena placement UPPER GASTROINTESTINAL ENDOSCOPY 06/16/2017 PRE-OP PATRICIA UPPER GASTROINTESTINAL ENDOSCOPY 04/06/2018 CURRENT MEDICATIONS/ALLERGIES: Current Facility-Administered Medications Medication Dose Route Frequency Provider Last Rate Last Admin aspirin EC tablet 81 mg 81 mg Oral Daily Yany Kang MD 81 mg at 08/06/23 0916 enoxaparin (Lovenox) syringe 40 mg 40 mg SubCUTAneous Daily Nizam U. Din, MD 40 mg at 08/06/23915 ferrous sulfate tablet 325 mg 325 mg Oral Daily with breakfast Yany Kang MD 325 mg at 08/06/23915 ibuprofen tablet 600 mg 600 mg Oral q6h PRN Tito Wells DO 600 mg at 08/06/23954 levETIRAcetam in sodium chloride (Keppra) IVPB 500 mg 500 mg IntraVENous BID Yany Kang MD Stopped at 08/06/23930 levothyroxine (Synthroid, Levoxyl) tablet 100 mcg 100 mcg Oral qAM AC Yany Kang MD 100 mcg at 08/06/23654 losartan (Cozaar) tablet 50 mg 50 mg Oral Daily Yany Kang MD 50 mg at 08/06/2314 melatonin tablet 3 mg 3 mg Oral Nightly PRN Yany Kang MD ondansetron ODT (Zofran-ODT) disintegrating tablet 4 mg 4 mg Oral q8h PRN Yany Kang MD Or ondansetron (Zofran) injection 4 mg 4 mg IntraVENous q6h PRN Nizam Alejandro Kang MD polyethylene glycol (PEG) 3350 (Miralax) packet 17 g 17 g Oral Daily PRN Yany Kang MD rosuvastatin (Crestor) tablet 20 mg 20 mg Oral Daily Yany Kang MD 20 mg at 08/06/23914 sertraline (Zoloft) tablet 100 mg 100 mg Oral Daily Yany Kang MD 100 mg at 08/06/23914 sodium chloride 0.9 % infusion 100 mL/hr IntraVENous Continuous Yany Kang MD 100 mL/hr at 08/05/232031 100 mL/hr at 08/05/232031 Allergies: Allergies Allergen Reactions Diphenhydramine Morphine Tylenol [Acetaminophen] Other Per Vancomycin FAMILY HISTORY: Psychiatric Family History: son - alcoholism Family history of suicide:Denies SOCIAL HISTORY: Relationship status: Children: 2 adult sons Living situation: Private Home Level of education: Occupation: disability service: Legal history:Denies Trauma history:Denies ADLs/IADLs: independent Substance Use History: Nicotine:Denies Alcohol:Denies Recreational Drugs: Denies PSYCHIATRIC EXAMINATION: Vitals: Vitals: 08/06/23 0951 BP: 140/76 Pulse: 52 Resp: Temp: SpO2: 96% Physical Examination: Constitutional: well developed, well nourished, in no acute distress, and alert Musculoskeletal: gait Not examined Mental Status Examination: Appearance: well kept, appears stated age Attitude toward examiner: Cooperative, conversant, engaged, and with good eye contact. Behavior/motor: No psychomotor agitation or retardation, no tremor or other abnormal movements. Speech: Coherent and Regular rate, rhythm, volume and articulation Mood: anxious Affect: Congruent, restricted range, low intensity Thought process: Linear, goal directed Thought content: Within normal limits Thought perception: No perceptual abnormalities noted Suicidal ideation:Denies Homicidal ideation: Denies Cognition: oriented to person, place, and time/date Memory: Grossly intact Insight: fair Judgment: fair DATA REVIEWED: Prior records have been reviewed in EMR Encounter Date: 08/05/23 ECG 12 lead Result Value Heart Rate 75 QRSD Interval 97 QT Interval 395 QTC Interval 442 P [place] 58 QRS [place] 41 T Wave [place] 0 HI Interval 160 Impression Sinus rhythm Normal axis No ST segment elevations No significant changes from previous ECG Electronically Signed On 08-05-2023 23:28:14 EDT by Ramu Hilario Labs: Recent Results (from the past 24 hour(s)) POCT glucose meter Collection Time: 08/05/23 6:19 PM Result Value Ref Range Glucose 90 70 - 100 mg/dL ECG 12 lead Collection Time: 08/05/23 6:19 PM Result Value Ref Range Heart Rate 75 bpm QRSD Interval 97 ms QT Interval 395 ms QTC Interval 442 ms P [place] 58 degrees QRS [place] 41 degrees T Wave [place] 0 degrees HI Interval 160 ms CBC auto differential Collection Time: 08/05/23 6:21 PM Result Value Ref Range Auto WBC 9.8 3.6 - 10.7 10*3/uL RBC 4.31 3.80 - 5.20 10*6/uL Hemoglobin 12.7 11.7 - 16.0 g/dL Hematocrit 39.5 35.0 - 47.0 % MCV 91.6 77.0 - 99.0 fL MCH 29.5 26.0 - 34.0 pg MCHC 32.2 30.5 - 36.0 % RDW 12.3 11.5 - 15.0 % Platelets 292 140 - 440 10*3/uL MPV 10.3 9.0 - 12.7 fL nRBC 0.0 0.0 - 2.0 /100 WBCs Neutrophils Relative 64.0 38.0 - 82.0 % Lymphocytes Relative 26.5 15.0 - 45.0 % Monocytes Relative 7.8 5.0 - 13.0 % Eosinophils Relative 0.8 0.0 - 6.0 % Basophils Relative 0.5 0.0 - 2.0 % Immature Grans % 0.4 0.0 - 2.0 % Neutrophils Absolute 6.3 1.8 - 7.5 10*3/uL Lymphocytes Absolute 2.6 1.0 - 4.3 10*3/uL Monocytes Absolute 0.8 0.0 - 0.9 10*3/uL Eosinophils Absolute 0.1 0.0 - 0.5 10*3/uL Basophils Absolute 0.1 0.0 - 0.2 10*3/uL Immature Grans Absolute 0.0 <0.1 10*3/uL Comprehensive metabolic panel Collection Time: 08/05/23 6:21 PM Result Value Ref Range SODIUM 143 135 - 145 mmol/L POTASSIUM 4.0 3.5 - 5.1 mmol/L CHLORIDE 110 (H) 98 - 107 mmol/L CARBON DIOXIDE 21 (L) 22 - 30 mmol/L ANION GAP 12 3 - 13 mmol/L UREA NITROGEN 13 7 - 17 mg/dL CREATININE 0.47 (L) 0.52 - 1.04 mg/dL GLUCOSE 96 70 - 100 mg/dL CALCIUM 9.4 8.4 - 10.4 mg/dL AST (SGOT) 41 15 - 46 U/L ALT 35 (H) 0 - 34 U/L ALKALINE PHOSPHATASE 113 38 - 126 U/L ALBUMIN 4.4 3.5 - 5.0 g/dL BILIRUBIN, TOTAL 0.5 0.2 - 1.3 mg/dL TOTAL PROTEIN 7.5 6.3 - 8.2 g/dL eGFR >90.0 >60.0 mL/min/1.73m*2 Lactic acid with reflex Collection Time: 08/05/23 6:21 PM Result Value Ref Range LACTIC ACID 4.1 (HH) 0.7 - 2.0 mmol/L Hemoglobin A1c Collection Time: 08/05/23 6:21 PM Result Value Ref Range HEMOGLOBIN A1C 5.2 <5.7 % ESTIMATED AVERAGE GLUCOSE 103 mg/dL C-reactive protein Collection Time: 08/05/23 6:21 PM Result Value Ref Range C REACTIVE PROTEIN <5.0 <10.0 mg/L Complete Urinalysis Collection Time: 08/05/23 8:27 PM Result Value Ref Range Color, Urine Light Yellow Lt. Yellow Clarity, Urine Clear Clear pH, Urine 6.0 5.0 - 8.0 pH Leukocytes, Urine 250 (A) Negative Barak/uL Nitrite, Urine Negative Negative Protein, Urine 10 (A) Negative mg/dL Glucose, Urine Normal Normal (<70) mg/dL Bilirubin, Urine Negative Negative mg/dL Ketones, Urine Negative Negative mg/dL Urobilinogen, Urine Normal Normal (0-1) mg/dL Blood, Urine Negative Negative mg/dL RBC, Urine >100 (A) 0 - 2 /HPF WBC, Urine 11-25 (A) 0 - 5 /HPF Squamous Epithelial, Urine 6-10 (A) 3 - 5 /HPF Bacteria, Urine Negative Negative /HPF Mucus, Urine Few Negative /LPF SPECIFIC GRAVITY OF URINE (NUMERIC) >1.030 (H) 1.005 - 1.030 Drug screen panel, emergency Collection Time: 08/05/23 8:27 PM Result Value Ref Range AMPHETAMINE SCREEN Negative BARBITURATES SCREEN Negative BENZODIAZEPINE SCREEN Positive COCAINE METAB. SCREEN Negative METHADONE SCREEN Negative OPIATES SCREEN Negative OXYCODONE SCREEN Negative PHENCYCLIDINE SCREEN Negative Lactic acid with reflex Collection Time: 08/05/23 8:30 PM Result Value Ref Range LACTIC ACID 0.8 0.7 - 2.0 mmol/L POCT glucose meter Collection Time: 08/05/23 10:54 PM Result Value Ref Range Glucose 93 70 - 100 mg/dL Lactic acid with reflex Collection Time: 08/06/23 4:16 AM Result Value Ref Range LACTIC ACID 0.9 0.7 - 2.0 mmol/L CBC auto differential Collection Time: 08/06/23 4:16 AM Result Value Ref Range Auto WBC 6.5 3.6 - 10.7 10*3/uL RBC 3.57 (L) 3.80 - 5.20 10*6/uL Hemoglobin 10.7 (L) 11.7 - 16.0 g/dL Hematocrit 32.3 (L) 35.0 - 47.0 % MCV 90.5 77.0 - 99.0 fL MCH 30.0 26.0 - 34.0 pg MCHC 33.1 30.5 - 36.0 % RDW 12.3 11.5 - 15.0 % Platelets 240 140 - 440 10*3/uL MPV 10.2 9.0 - 12.7 fL nRBC 0.0 0.0 - 2.0 /100 WBCs Neutrophils Relative 51.9 38.0 - 82.0 % Lymphocytes Relative 38.8 15.0 - 45.0 % Monocytes Relative 6.8 5.0 - 13.0 % Eosinophils Relative 1.7 0.0 - 6.0 % Basophils Relative 0.5 0.0 - 2.0 % Immature Grans % 0.3 0.0 - 2.0 % Neutrophils Absolute 3.4 1.8 - 7.5 10*3/uL Lymphocytes Absolute 2.5 1.0 - 4.3 10*3/uL Monocytes Absolute 0.4 0.0 - 0.9 10*3/uL Eosinophils Absolute 0.1 0.0 - 0.5 10*3/uL Basophils Absolute 0.0 0.0 - 0.2 10*3/uL Immature Grans Absolute 0.0 <0.1 10*3/uL Comprehensive metabolic panel Collection Time: 08/06/23 4:16 AM Result Value Ref Range SODIUM 138 135 - 145 mmol/L POTASSIUM 3.5 3.5 - 5.1 mmol/L CHLORIDE 112 (H) 98 - 107 mmol/L CARBON DIOXIDE 21 (L) 22 - 30 mmol/L ANION GAP 5 3 - 13 mmol/L UREA NITROGEN 10 7 - 17 mg/dL CREATININE 0.37 (L) 0.52 - 1.04 mg/dL GLUCOSE 90 70 - 100 mg/dL CALCIUM 8.1 (L) 8.4 - 10.4 mg/dL AST (SGOT) 32 15 - 46 U/L ALT 27 0 - 34 U/L ALKALINE PHOSPHATASE 88 38 - 126 U/L ALBUMIN 3.1 (L) 3.5 - 5.0 g/dL BILIRUBIN, TOTAL 0.4 0.2 - 1.3 mg/dL TOTAL PROTEIN 5.6 (L) 6.3 - 8.2 g/dL eGFR >90.0 >60.0 mL/min/1.73m*2 TSH Collection Time: 08/06/23 4:16 AM Result Value Ref Range THYROID STIMULATING HORMONE 3.775 0.465 - 4.680 uIU/mL Magnesium Collection Time: 08/06/23 4:16 AM Result Value Ref Range MAGNESIUM 1.9 1.6 - 2.3 mg/dL PDMP records have been reviewed ASSESSMENT: 58 year old with hx of anxiety and episodic shakiness; presentation atypical for epilepsy and conversion disorder (AKA PNES). 20 minute EEG without diagnostic findings and no concurrent seizure-like activity reported. Cannot rule out metabolic/cardiovascular/nutritional causes given reported fatigue, bradycardia, decreased PO intake. Cannot rule out dysautonomia. I do not detect any clear motivation for secondary gain (malingering) at this time. Diagnostic Impression: Unspecified Anxiety, likely CRISTINA Tremors Risk of harm to self: Suicide Risk Assessment (SAFE-T): C-SSRS Screener (Since Last Contact): 1. Wish to be ? No 2. Current suicidal thoughts? No 3. Suicidal thoughts w/ method? 4. Suicidal Intent without specific plan? 5. Intent with plan? 6. Suicidal behavior? No Calculated C-SSRS Risk Score No Risk Indicated RECOMMENDATIONS: Pt does NOT require inpatient psychiatric admission. Defer to primary team for need for green slip/sitter. Medications: continue sertraline 100mg daily, ambien 5mg at bedtime prn insomnia Start vistaril 25mg TID PRN anxiety Labs: check Vitamin D, B12, Thiamine, B6, ESR Recommendations shared with primary team. Will follow peripherally [employer] Work Phone: [phone]) 826-761806-06-2024 Consult note* Emma Oglesby MD - 08/06/2023 3:25 PM EDTAssociated Order(s): IP CONSULT TO PSYCHIATRY Department of Psychiatry Consult Service Attending Consult Note Reason for Consult: Concern for pseudo-seizures and malingering Requesting Physician: Russell CHIEF COMPLAINT: Chief Complaint Patient presents with Seizures Per MES pt called 911 because she was not feeling well, witnessed seizure per EMS. Pt had tonic clonic like movements upon arrival. Pt became immediately alert and oriented after receiving IV ativan,no post ictal period noted. Pt has hx of DM, no seizure hx. EMS glucose was 205. History obtained from: patient and past medical records HISTORY OF PRESENT ILLNESS: The patient is a 58 y.o.female with significant past medical history of thao en y gastric bypass, GERD, chronic pain, hypothyroidism, and anxiety who arrived by ambulance after experiencing seizure-like activity at home. Pt was subsequently admitted for seizure workup and psychiatry was consulted. Pt is a&ox3, awake and cooperative. Reports feeling abnormally tired recently. Notes yesterday she felt tired and didn't eat much aside from a cheeseburger for lunch. She was laying in bed at home and felt shaky, starting in her b/l arms and then spreading through her body. No loss of consciousness noted. Pt states she couldn't talk but was aware of the episode. Denies tongue bitting or incont inence. Denies any postictal symptoms. Has had two similar but brief episodes since admission. No other seizure hx known for the patient or her family. Denies recent med changes outside of starting Ambien ~2 weeks ago. Endorses compliance with her home medications and vitamin regimen. Notes some increased stress lately as one of her sons is disabled from a stroke and in a senior living for total care, while her other son has been having issues with alcoholism and lives at home with her. Started psychotropics through her PCP about a month or two ago (sertraline + unknown sleep med, later Ambien). Feels the regimen has been somewhat helpful. Collateral was obtained from the following individual: chart review REVIEW OF SYSTEMS: Medical Review Of Systems: A comprehensive review of systems was negative except for: Constitutional: positive for fatigue Cardiovascular: positive for bradycardia Gastrointestinal: positive for low appetite3 Neurological: positive for Symptoms; Neuro: tremors Behavioral/Psych: positive for Symptoms; Pyschiatric: anxiety and sleep disturbance Psychiatric Review Of Systems: Depressed mood: a little Sleep changes: problems falling asleep Appetite changes: decreased Weight changes: unknown Energy changes: low Loss of interest/anhedonia:Denies Somatic symptoms: see HPI Libido changes: Anxiety/panic: y Guilty/hopeless:Denies Self-injurious/risky behavior:Denies Suicidal ideation:Denies Homicidal ideation:Denies Access to weapons:Denies Lifetime Psychiatric Review Of Systems: Ofelia or hypomania:Denies Panic attacks: rare Phobias:Denies PTSD:Denies Obsessions/compulsions:Denies Hallucinations:Denies Delusions:Denies PAST PSYCHIATRIC HISTORY: The patient is currently receiving care for the above psychiatric illness with her PCP. 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 COLONOSCOPY 04/2018 CYSTOSCOPY 03/17/2014 DR Luo. bilat urerteral stent placement. GASTRIC BYPASS 02/12/2018 LRYGB- Dr. Gomez [facility] HERNIA REPAIR 01/21/2019 Dr. Riley - [facility] General Surgery-retrorectus ventral repair w mesh. exp lap, BABATUNDE. HYSTERECTOMY 2008 low transverse INCISIONAL HERNIA REPAIR 02/03/2012 excision of syntheti mesh and use of Strattice with component separation. INCISIONAL HERNIA REPAIR 09/09/2011 [place] NECK SURGERY 2003 OTHER SURGICAL HISTORY 11/03/2019 panniculectomy with vac prevena placement UPPER GASTROINTESTINAL ENDOSCOPY 06/16/2017 PRE-OP PATRICIA UPPER GASTROINTESTINAL ENDOSCOPY 04/06/2018 CURRENT MEDICATIONS/ALLERGIES: Current Facility-Administered Medications Medication Dose Route Frequency Provider Last Rate Last Admin aspirin EC tablet 81 mg 81 mg Oral Daily Yany Kang MD 81 mg at 08/06/23 0916 enoxaparin (Lovenox) syringe 40 mg 40 mg SubCUTAneous Daily Yany Kang MD 40 mg at 08/06/23 0916 ferrous sulfate tablet 325 mg 325 mg Oral Daily with breakfast Yany Kang MD 325 mg at 08/06/23 0916 ibuprofen tablet 600 mg 600 mg Oral q6h PRN Tito Wells DO 600 mg at 08/06/23954 levETIRAcetam in sodium chloride (Keppra) IVPB 500 mg 500 mg IntraVENous BID Yany Kang MD Stopped at 08/06/23 0931 levothyroxine (Synthroid, Levoxyl) tablet 100 mcg 100 mcg Oral qAM AC Paolazam Alejandro Kang MD 100 mcg at 08/06/23654 losartan (Cozaar) tablet 50 mg 50 mg Oral Daily Nizam UCarola Kang MD 50 mg at 08/06/23 0914 melatonin tablet 3 mg 3 mg Oral Nightly PRN Nizam UCarola Kang MD ondansetron ODT (Zofran-ODT) disintegrating tablet 4 mg 4 mg Oral q8h PRN Nizam Alejandro Kang MD Or ondansetron (Zofran) injection 4 mg 4 mg IntraVENous q6h PRN Nizam U. MD Pearl polyethylene glycol (PEG) 3350 (Miralax) packet 17 g 17 g Oral Daily PRN Nizam UCarola Kang MD rosuvastatin (Crestor) tablet 20 mg 20 mg Oral Daily Nizam Alejandro Kang MD 20 mg at 08/06/23914 sertraline (Zoloft) tablet 100 mg 100 mg Oral Daily Yany Kang MD 100 mg at 08/06/23914 sodium chloride 0.9 % infusion 100 mL/hr IntraVENous Continuous Yany Kang MD 100 mL/hr at 08/05/232031 100 mL/hr at 08/05/232031 Allergies: Allergies Allergen Reactions Diphenhydramine Morphine Tylenol [Acetaminophen] Other Per Vancomycin FAMILY HISTORY: Psychiatric Family History: son - alcoholism Family history of suicide:Denies SOCIAL HISTORY: Relationship status: Children: 2 adult sons Living situation: Private Home Level of education: Occupation: disability service: Legal history:Denies Trauma history:Denies ADLs/IADLs: independent Substance Use History: Nicotine:Denies Alcohol:Denies Recreational Drugs: Denies PSYCHIATRIC EXAMINATION: Vitals: Vitals: 08/06/23 0951 BP: 140/76 Pulse: 52 Resp: Temp: SpO2: 96% Physical Examination: Constitutional: well developed, well nourished, in no acute distress, and alert Musculoskeletal: gait Not examined Mental Status Examination: Appearance: well kept, appears stated age Attitude toward examiner: Cooperative, conversant, engaged, and with good eye contact. Behavior/motor: No psychomotor agitation or retardation, no tremor or other abnormal movements. Speech: Coherent and Regular rate, rhythm, volume and articulation Mood: anxious Affect: Congruent, restricted range, low intensity Thought process: Linear, goal directed Thought content: Within normal limits Thought perception: No perceptual abnormalities noted Suicidal ideation:Denies Homicidal ideation: Denies Cognition: oriented to person, place, and time/date Memory: Grossly intact Insight: fair Judgment: fair DATA REVIEWED: Prior records have been reviewed in EMR Encounter Date: 08/05/23 ECG 12 lead Result Value Heart Rate 75 QRSD Interval 97 QT Interval 395 QTC Interval 442 P [place] 58 QRS [place] 41 T Wave [place] 0 HI Interval 160 Impression Sinus rhythm Normal axis No ST segment elevations No significant changes from previous ECG Electronically Signed On 08-05-2023 23:28:14 EDT by Ramu Hilario Labs: Recent Results (from the past 24 hour(s)) POCT glucose meter Collection Time: 08/05/23 6:19 PM Result Value Ref Range Glucose 90 70 - 100 mg/dL ECG 12 lead Collection Time: 08/05/23 6:19 PM Result Value Ref Range Heart Rate 75 bpm QRSD Interval 97 ms QT Interval 395 ms QTC Interval 442 ms P [place] 58 degrees QRS [place] 41 degrees T Wave [place] 0 degrees HI Interval 160 ms CBC auto differential Collection Time: 08/05/23 6:21 PM Result Value Ref Range Auto WBC 9.8 3.6 - 10.7 10*3/uL RBC 4.31 3.80 - 5.20 10*6/uL Hemoglobin 12.7 11.7 - 16.0 g/dL Hematocrit 39.5 35.0 - 47.0 % MCV 91.6 77.0 - 99.0 fL MCH 29.5 26.0 - 34.0 pg MCHC 32.2 30.5 - 36.0 % RDW 12.3 11.5 - 15.0 % Platelets 292 140 - 440 10*3/uL MPV 10.3 9.0 - 12.7 fL nRBC 0.0 0.0 - 2.0 /100 WBCs Neutrophils Relative 64.0 38.0 - 82.0 % Lymphocytes Relative 26.5 15.0 - 45.0 % Monocytes Relative 7.8 5.0 - 13.0 % Eosinophils Relative 0.8 0.0 - 6.0 % Basophils Relative 0.5 0.0 - 2.0 % Immature Grans % 0.4 0.0 - 2.0 % Neutrophils Absolute 6.3 1.8 - 7.5 10*3/uL Lymphocytes Absolute 2.6 1.0 - 4.3 10*3/uL Monocytes Absolute 0.8 0.0 - 0.9 10*3/uL Eosinophils Absolute 0.1 0.0 - 0.5 10*3/uL Basophils Absolute 0.1 0.0 - 0.2 10*3/uL Immature Grans Absolute 0.0 <0.1 10*3/uL Comprehensive metabolic panel Collection Time: 08/05/23 6:21 PM Result Value Ref Range SODIUM 143 135 - 145 mmol/L POTASSIUM 4.0 3.5 - 5.1 mmol/L CHLORIDE 110 (H) 98 - 107 mmol/L CARBON DIOXIDE 21 (L) 22 - 30 mmol/L ANION GAP 12 3 - 13 mmol/L UREA NITROGEN 13 7 - 17 mg/dL CREATININE 0.47 (L) 0.52 - 1.04 mg/dL GLUCOSE 96 70 - 100 mg/dL CALCIUM 9.4 8.4 - 10.4 mg/dL AST (SGOT) 41 15 - 46 U/L ALT 35 (H) 0 - 34 U/L ALKALINE PHOSPHATASE 113 38 - 126 U/L ALBUMIN 4.4 3.5 - 5.0 g/dL BILIRUBIN, TOTAL 0.5 0.2 - 1.3 mg/dL TOTAL PROTEIN 7.5 6.3 - 8.2 g/dL eGFR >90.0 >60.0 mL/min/1.73m*2 Lactic acid with reflex Collection Time: 08/05/23 6:21 PM Result Value Ref Range LACTIC ACID 4.1 (HH) 0.7 - 2.0 mmol/L Hemoglobin A1c Collection Time: 08/05/23 6:21 PM Result Value Ref Range HEMOGLOBIN A1C 5.2 <5.7 % ESTIMATED AVERAGE GLUCOSE 103 mg/dL C-reactive protein Collection Time: 08/05/23 6:21 PM Result Value Ref Range C REACTIVE PROTEIN <5.0 <10.0 mg/L Complete Urinalysis Collection Time: 08/05/23 8:27 PM Result Value Ref Range Color, Urine Light Yellow Lt. Yellow Clarity, Urine Clear Clear pH, Urine 6.0 5.0 - 8.0 pH Leukocytes, Urine 250 (A) Negative Barak/uL Nitrite, Urine Negative Negative Protein, Urine 10 (A) Negative mg/dL Glucose, Urine Normal Normal (<70) mg/dL Bilirubin, Urine Negative Negative mg/dL Ketones, Urine Negative Negative mg/dL Urobilinogen, Urine Normal Normal (0-1) mg/dL Blood, Urine Negative Negative mg/dL RBC, Urine >100 (A) 0 - 2 /HPF WBC, Urine 11-25 (A) 0 - 5 /HPF Squamous Epithelial, Urine 6-10 (A) 3 - 5 /HPF Bacteria, Urine Negative Negative /HPF Mucus, Urine Few Negative /LPF SPECIFIC GRAVITY OF URINE (NUMERIC) >1.030 (H) 1.005 - 1.030 Drug screen panel, emergency Collection Time: 08/05/23 8:27 PM Result Value Ref Range AMPHETAMINE SCREEN Negative BARBITURATES SCREEN Negative BENZODIAZEPINE SCREEN Positive COCAINE METAB. SCREEN Negative METHADONE SCREEN Negative OPIATES SCREEN Negative OXYCODONE SCREEN Negative PHENCYCLIDINE SCREEN Negative Lactic acid with reflex Collection Time: 08/05/23 8:30 PM Result Value Ref Range LACTIC ACID 0.8 0.7 - 2.0 mmol/L POCT glucose meter Collection Time: 08/05/23 10:54 PM Result Value Ref Range Glucose 93 70 - 100 mg/dL Lactic acid with reflex Collection Time: 08/06/23 4:16 AM Result Value Ref Range LACTIC ACID 0.9 0.7 - 2.0 mmol/L CBC auto differential Collection Time: 08/06/23 4:16 AM Result Value Ref Range Auto WBC 6.5 3.6 - 10.7 10*3/uL RBC 3.57 (L) 3.80 - 5.20 10*6/uL Hemoglobin 10.7 (L) 11.7 - 16.0 g/dL Hematocrit 32.3 (L) 35.0 - 47.0 % MCV 90.5 77.0 - 99.0 fL MCH 30.0 26.0 - 34.0 pg MCHC 33.1 30.5 - 36.0 % RDW 12.3 11.5 - 15.0 % Platelets 240 140 - 440 10*3/uL MPV 10.2 9.0 - 12.7 fL nRBC 0.0 0.0 - 2.0 /100 WBCs Neutrophils Relative 51.9 38.0 - 82.0 % Lymphocytes Relative 38.8 15.0 - 45.0 % Monocytes Relative 6.8 5.0 - 13.0 % Eosinophils Relative 1.7 0.0 - 6.0 % Basophils Relative 0.5 0.0 - 2.0 % Immature Grans % 0.3 0.0 - 2.0 % Neutrophils Absolute 3.4 1.8 - 7.5 10*3/uL Lymphocytes Absolute 2.5 1.0 - 4.3 10*3/uL Monocytes Absolute 0.4 0.0 - 0.9 10*3/uL Eosinophils Absolute 0.1 0.0 - 0.5 10*3/uL Basophils Absolute 0.0 0.0 - 0.2 10*3/uL Immature Grans Absolute 0.0 <0.1 10*3/uL Comprehensive metabolic panel Collection Time: 08/06/23 4:16 AM Result Value Ref Range SODIUM 138 135 - 145 mmol/L POTASSIUM 3.5 3.5 - 5.1 mmol/L CHLORIDE 112 (H) 98 - 107 mmol/L CARBON DIOXIDE 21 (L) 22 - 30 mmol/L ANION GAP 5 3 - 13 mmol/L UREA NITROGEN 10 7 - 17 mg/dL CREATININE 0.37 (L) 0.52 - 1.04 mg/dL GLUCOSE 90 70 - 100 mg/dL CALCIUM 8.1 (L) 8.4 - 10.4 mg/dL AST (SGOT) 32 15 - 46 U/L ALT 27 0 - 34 U/L ALKALINE PHOSPHATASE 88 38 - 126 U/L ALBUMIN 3.1 (L) 3.5 - 5.0 g/dL BILIRUBIN, TOTAL 0.4 0.2 - 1.3 mg/dL TOTAL PROTEIN 5.6 (L) 6.3 - 8.2 g/dL eGFR >90.0 >60.0 mL/min/1.73m*2 TSH Collection Time: 08/06/23 4:16 AM Result Value Ref Range THYROID STIMULATING HORMONE 3.775 0.465 - 4.680 uIU/mL Magnesium Collection Time: 08/06/23 4:16 AM Result Value Ref Range MAGNESIUM 1.9 1.6 - 2.3 mg/dL PDMP records have been reviewed ASSESSMENT: 58 year old with hx of anxiety and episodic shakiness; presentation atypical for epilepsy and conversion disorder (AKA PNES). 20 minute EEG without diagnostic findings and no concurrent seizure-like activity reported. Cannot rule out metabolic/cardiovascular/nutritional causes given reported fatigue, bradycardia, decreased PO intake. Cannot rule out dysautonomia. I do not detect any clear motivation for secondary gain (malingering) at this time. Diagnostic Impression: Unspecified Anxiety, likely CRISTINA Tremors Risk of harm to self: Suicide Risk Assessment (SAFE-T): C-SSRS Screener (Since Last Contact): 1. Wish to be ? No 2. Current suicidal thoughts? No 3. Suicidal thoughts w/ method? 4. Suicidal Intent without specific plan? 5. Intent with plan? 6. Suicidal behavior? No Calculated C-SSRS Risk Score No Risk Indicated RECOMMENDATIONS: Pt does NOT require inpatient psychiatric admission. Defer to primary team for need for green slip/sitter. Medications: continue sertraline 100mg daily, ambien 5mg at bedtime prn insomnia Start vistaril 25mg TID PRN anxiety Labs: check Vitamin D, B12, Thiamine, B6, ESR Recommendations shared with primary team. Will follow peripherally * Pollo Boateng MD - 08/06/2023 9:07 AM EDT Neurology Consult Note - Neurology Service Patient Name: Ayala Aranda Patient : 1965 Acct: [id number] Date of Admission: 08/05/2023 Room/Bed: [facility]362/[facility] A PCP: Emma Harmon DO 08/06/2023 Reason for Consult: Seizure like activity History of Presenting Illness: The patient is 58 y.o. -- who is being seen as a new consult for Seizure like activity. Upon speaking to the patient this morning, she states that at around 4:30 PM yesterday she was feeling generally unwell and when she was standing up to walk she started having generalized shaking that was very mild in nature so she felt her blood sugar may have been low so she proceeded to eat a peanut butter jelly sandwich. She proceeded to sit down on the couch and called rosa isela. When her son got there she stated that she was having generalized shaking of her entire body and her eyes were closed but she could hear everything but she could not respond to anything this episode lasted about 10 minutes and stop after she received a medication through the nose by EMS however when she got to the emergency department she started having the same type of episode as previouslymentioned above. She states that she did not bite her tongue but she feels like she may have urinated a little bit during this episode. Per EMS documentation she was given 10 mg of intranasal Versed which seemed to subside her symptoms. In the emergency department the patient had similar symptoms and was given 4 mg of Ativan the patient also received 4000 mg of Keppra which seemed to alleviate her symptoms. Per ED documentation thepatient after receiving the Ativan in about 2 to 3 minutes was back to baseline was no postictal state and she is alert and oriented x 3. NIH at that time was [address] head revealed no acute intracranial abnormalities. Upon my evaluation this morning, the patient states that she is doing much better than she did yesterday but she is still a bit nauseous as she was feeling yesterday. She denies any fevers, chills, vomiting, any headache, dizziness, lightheadedness, tingling, numbness. Patient does state that she is generally weak. 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 Daughter blood glucose levels low and proceeded to eat a peanut butter jelly sandwich. Sat down and called her son andhad generalized shaking of the entire body when her son got there. Duration: 10 minutes Current state: Patient is alert awake attentive and holds good conversation and has a good knowledge of the events that brought her into the hospital. Severity: Not available Modifying factors: Mental health history, history of diabetes Associated symptoms: Nausea Review of systems: General: No reported chills, no fever. HEENT: No reported headache, no head injury. No reported eye pain or eye congestion. No reported ear pain or ear congestion. No reported nasal congestion or nosebleed. No reported throat congestion or infection. Neck: No reported neck pain. No reported neck stiffness. Respiratory: No reported wheezing and no reported shortness of breath. Cardiac: No reported chest pain and no reported palpitations. Gastrointestinal: Patient does state she is nauseous, no abdominal pain and, no reported diarrhea. Musculoskeletal: No reported arthralgia and, no reported low back pain. Endocrine: Patient does have hypothyroidism for which she states she takes a medication (100 mcg oflevothyroxine daily). Patient does state she has a history of Type 1 Diabetes, currently on no medications for this. Psychiatry: Patient does report history of Depression and Anxiety for which she is on medications for. Neurological: No reported alteration in mental state at this time. Patient does state she has generalized weakness. No reported speech deficit. Patient does report seizure like activity yesterday at around 4:30 PM and again when she was in the emergency department. No reported tongue bite. Patient does state she may have urinated a little when she was seizing. No reported stroke. No vision changes. No reported vertigo. No reported hearing loss. No reported gait or ambulatory decline. Past medical History, surgical history, family history and social history were reviewed with the patient/care provider and were reviewed in the chart. Only the available information is documented below. Thank you. 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 COLONOSCOPY 04/2018 CYSTOSCOPY 03/17/2014 DR Luo. bilat urerteral stent placement. GASTRIC BYPASS 02/12/2018 LRYGB- Dr. Gomez [facility] HERNIA REPAIR 01/21/2019 Dr. Riley - [facility] General Surgery-retrorectus ventral repair w mesh. exp lap, BABATUNDE. HYSTERECTOMY 2008 low transverse INCISIONAL HERNIA REPAIR 02/03/2012 excision of syntheti mesh and use of Strattice with component separation. INCISIONAL HERNIA REPAIR 09/09/2011 [place] NECK SURGERY 2003 OTHER SURGICAL HISTORY 11/03/2019 panniculectomy with vac prevena placement UPPER GASTROINTESTINAL ENDOSCOPY 06/16/2017 PRE-OP ZOGRAFAKIS UPPER GASTROINTESTINAL ENDOSCOPY 04/06/2018 Family History: Family History Problem Relation Name Age of Onset Hypertension Brother Heart disease Mother Hyperlipidemia Mother COPD Mother Bleeding Prob Mother Diabetes Mother Heart disease Father Hypertension Paternal Grandmother Hypertension Mother Colon cancer Neg Hx Diabetes Paternal Grandfather Hypertension Paternal Grandfather Social History: TOBACCO: reports that she has never smoked. She has never used smokeless tobacco. ETOH: reports no history of alcohol use. RECREATIONAL DRUG USE: Social History Substance and Sexual Activity Drug Use No The patient's medications and allergies were reviewed and the available information is documented below. Thank you. Allergies: Diphenhydramine, Morphine, Tylenol [acetaminophen], and Vancomycin Home Medications: Prior to Admission medications Medication Sig Start Date End Date Taking? Authorizing Provider aspirin 81 MG EC tablet Take 1 tablet (81 mg) by mouth daily. 05/19/23 05/18/24 Aakash Granado DO Biotin 5 MG tablet dispersible Take 5,000 mcg by mouth in the morning. Historical Provider, cholecalciferol (Vitamin D-3) 50 MCG (2000 UT) capsule Take 2,000 Units by mouth in the morning. Historical Provider, cyanocobalamin (Vitamin B-12) 1000 MCG tablet Take 1,000 mcg by mouth in the morning. Historical Provider, Docusate Sodium (DSS) 100 MG capsule Take 100 mg by mouth daily. 09/27/20 09/07/23 Historical Provider, ferrous sulfate 325 (65 Fe) MG tablet Take 325 mg by mouth daily (with breakfast). Historical Provider, levothyroxine (Tirosint) 100 MCG capsule Take 100 mcg by mouth every morning (before breakfast). Historical Provider, losartan (Cozaar) 50 MG tablet Take 1 tablet (50 mg) by mouth daily. Do not start before May 20, 2023. 05/20/23 05/19/24 Aakash Granado DO rosuvastatin (Crestor) 20 MG tablet Take 20 mg by mouth daily. 03/11/23 09/07/23 Historical Provider, sertraline (Zoloft) 100 MG tablet Take 100 mg by mouth daily. Historical Provider, Current Hospital Medications: Current Facility-Administered Medications: aspirin EC tablet 81 mg, 81 mg, Oral, Daily, Yany Kang MD, 81 mg at 08/05/232037 enoxaparin (Lovenox) syringe 40 mg, 40 mg, SubCUTAneous, Daily, Yany Kang MD, 40 mg at ferrous sulfate tablet 325 mg, 325 mg, Oral, Daily with breakfast, Yany Kang MD ibuprofen tablet 600 mg, 600 mg, Oral, q6h PRN, Tito Wells DO levETIRAcetam in sodium chloride (Keppra) IVPB 500 mg, 500 mg, IntraVENous, BID, Yany Kang MD levothyroxine (Synthroid, Levoxyl) tablet 100 mcg, 100 mcg, Oral, qAM AC, Yany Kang MD, 100 mcgat 08/06/23654 losartan (Cozaar) tablet 50 mg, 50 mg, Oral, Daily, Yany Kang MD, 50 mg at 08/05/232037 melatonin tablet 3 mg, 3 mg, Oral, Nightly PRN, Yany Kang MD ondansetron ODT (Zofran-ODT) disintegrating tablet 4 mg, 4 mg, Oral, q8h PRN OR ondansetron (Zofran) injection 4 mg, 4 mg, IntraVENous, q6h PRN, Yany Kang MD polyethylene glycol (PEG) 3350 (Miralax) packet 17 g, 17 g, Oral, Daily PRN, Yany Kang MD rosuvastatin (Crestor) tablet 20 mg, 20 mg, Oral, Daily, Yany Kang MD, 20 mg at 08/05/232037 sertraline (Zoloft) tablet 100 mg, 100 mg, Oral, Daily, Yany Kang MD, 100 mg at 08/05/232037 sodium chloride 0.9 % infusion, 100 mL/hr, IntraVENous, Continuous, Yany Kang MD, Last Rate: 100 mL/hr at 08/05/232031, 100 mL/hr at 08/05/232031 Continuous Infusions: sodium chloride, 100 mL/hr, Last Rate: 100 mL/hr (08/05/232031) Vital Signs: Patient Vitals for the past 24 hrs: BP Temp Temp src Pulse Resp SpO2 Height Weight 08/06/23 0738 129/71 36.3 C (97.3 F) Temporal 54 -- 96 % -- -- 08/05/232253 135/71 36.1 C (97 F) Temporal 50 16 97 % -- -- 08/05/232235 -- -- -- (!) 48 -- 98 % -- -- 08/05/232231 120/66 36.2 C (97.2 F) Temporal 50 18 96 % -- -- 08/05/232131 128/71 -- -- 58 18 95 % -- -- 08/05/232040 131/74 -- -- 59 18 100 % -- -- 08/05/232037 131/74 -- -- -- -- -- -- -- 08/05/23 1900 119/82 -- -- 60 19 96 % -- -- 08/05/23 1831 115/75 -- -- 70 21 96 % -- -- 08/05/231825 -- -- -- -- -- -- 5' 2 (1.575 m) 165 lb (74.8 kg) 08/05/231819 126/70 37.2 C (98.9 F) Axillary 77 15 96 % -- -- 08/05/231815 -- -- -- 74 (!) 28 98 % -- -- Physical Examination: General Exam: Constitutional: The patient is obese. Cardiovascular: S1 and S2, regular rate and rhythm no overt murmurs. No carotid bruit and normal carotid pulse. Extremities: No cyanosis, no clubbing. Patient does have non pitting edema of the bilateral lower extremities Ophthalmology/funduscopic exam: Unremarkable/normal. Abdominal: Soft, nondistended, nontender to palpation bowel sounds normal. Neurological Exam: Dexterity: The patient is RIGHT handed. Mental Status: Alert, Awake, Oriented x 4, Normal Speech. Follows 1-3 step commands. Fund of knowledge: Patient demonstrates good knowledge about her medical conditions and the events of what brought her into the hospital based on my conversation with her. Attention/concentration: Patient is attentive and demonstrates good concentration upon my conversation with her. Cranial Nerves: CN-II, CN-III, CN-IV, CN-V, CN-, CN-VII, CN-VIII, CN-IX, CN-X, CN-XI and, CN-XII are within normal limits bilaterally. Motor: Bulk = Symmetric and within normal limits bilaterally. Tone = Symmetric and within normal limits bilaterally. Strength = 5+/5 in all 4 extremities. DTRs = Trace throughout. Plantars = Down-going bilaterally. Abnormal movements = None. Opposition = Normal in both upper extremities. Pronator Drift = No pronator drift on the RIGHT and, no pronator drift on the LEFT side. Sensory: Light touch, pinprick and vibration exams are within normal limits. Coordination: Finger to nose is normal on the right side and, on the left side. Heel to gavin is normal on the right side and, on the left side. Rapid alternation movements are normal on the right side and, on the left side. Gait: Deferred due to patient's inability to participate at this time. Romberg: Deferred due to patient's inability to participate at this time. NIHSS score: NIH score was 0 Results: Labs: Last 24hrs Recent Results (from the past 24 hour(s)) POCT glucose meter Collection Time: 08/05/23 6:19 PM Result Value Ref Range Glucose 90 70 - 100 mg/dL ECG 12 lead Collection Time: 08/05/23 6:19 PM Result Value Ref Range Heart Rate 75 bpm QRSD Interval 97 ms QT Interval 395 ms QTC Interval 442 ms P [place] 58 degrees QRS [place] 41 degrees T Wave [place] 0 degrees HI Interval 160 ms CBC auto differential Collection Time: 08/05/23 6:21 PM Result Value Ref Range Auto WBC 9.8 3.6 - 10.7 10*3/uL RBC 4.31 3.80 - 5.20 10*6/uL Hemoglobin 12.7 11.7 - 16.0 g/dL Hematocrit 39.5 35.0 - 47.0 % MCV 91.6 77.0 - 99.0 fL MCH 29.5 26.0 - 34.0 pg MCHC 32.2 30.5 - 36.0 % RDW 12.3 11.5 - 15.0 % Platelets 292 140 - 440 10*3/uL MPV 10.3 9.0 - 12.7 fL nRBC 0.0 0.0 - 2.0 /100 WBCs Neutrophils Relative 64.0 38.0 - 82.0 % Lymphocytes Relative 26.5 15.0 - 45.0 % Monocytes Relative 7.8 5.0 - 13.0 % Eosinophils Relative 0.8 0.0 - 6.0 % Basophils Relative 0.5 0.0 - 2.0 % Immature Grans % 0.4 0.0 - 2.0 % Neutrophils Absolute 6.3 1.8 - 7.5 10*3/uL Lymphocytes Absolute 2.6 1.0 - 4.3 10*3/uL Monocytes Absolute 0.8 0.0 - 0.9 10*3/uL Eosinophils Absolute 0.1 0.0 - 0.5 10*3/uL Basophils Absolute 0.1 0.0 - 0.2 10*3/uL Immature Grans Absolute 0.0 <0.1 10*3/uL Comprehensive metabolic panel Collection Time: 08/05/23 6:21 PM Result Value Ref Range SODIUM 143 135 - 145 mmol/L POTASSIUM 4.0 3.5 - 5.1 mmol/L CHLORIDE 110 (H) 98 - 107 mmol/L CARBON DIOXIDE 21 (L) 22 - 30 mmol/L ANION GAP 12 3 - 13 mmol/L UREA NITROGEN 13 7 - 17 mg/dL CREATININE 0.47 (L) 0.52 - 1.04 mg/dL GLUCOSE 96 70 - 100 mg/dL CALCIUM 9.4 8.4 - 10.4 mg/dL AST (SGOT) 41 15 - 46 U/L ALT 35 (H) 0 - 34 U/L ALKALINE PHOSPHATASE 113 38 - 126 U/L ALBUMIN 4.4 3.5 - 5.0 g/dL BILIRUBIN, TOTAL 0.5 0.2 - 1.3 mg/dL TOTAL PROTEIN 7.5 6.3 - 8.2 g/dL eGFR >90.0 >60.0 mL/min/1.73m*2 Lactic acid with reflex Collection Time: 08/05/23 6:21 PM Result Value Ref Range LACTIC ACID 4.1 (HH) 0.7 - 2.0 mmol/L Hemoglobin A1c Collection Time: 08/05/23 6:21 PM Result Value Ref Range HEMOGLOBIN A1C 5.2 <5.7 % ESTIMATED AVERAGE GLUCOSE 103 mg/dL C-reactive protein Collection Time: 08/05/23 6:21 PM Result Value Ref Range C REACTIVE PROTEIN <5.0 <10.0 mg/L Complete Urinalysis Collection Time: 08/05/23 8:27 PM Result Value Ref Range Color, Urine Light Yellow Lt. Yellow Clarity, Urine Clear Clear pH, Urine 6.0 5.0 - 8.0 pH Leukocytes, Urine 250 (A) Negative Barak/uL Nitrite, Urine Negative Negative Protein, Urine 10 (A) Negative mg/dL Glucose, Urine Normal Normal (<70) mg/dL Bilirubin, Urine Negative Negative mg/dL Ketones, Urine Negative Negative mg/dL Urobilinogen, Urine Normal Normal (0-1) mg/dL Blood, Urine Negative Negative mg/dL RBC, Urine >100 (A) 0 - 2 /HPF WBC, Urine 11-25 (A) 0 - 5 /HPF Squamous Epithelial, Urine 6-10 (A) 3 - 5 /HPF Bacteria, Urine Negative Negative /HPF Mucus, Urine Few Negative /LPF SPECIFIC GRAVITY OF URINE (NUMERIC) >1.030 (H) 1.005 - 1.030 Drug screen panel, emergency Collection Time: 08/05/23 8:27 PM Result Value Ref Range AMPHETAMINE SCREEN Negative BARBITURATES SCREEN Negative BENZODIAZEPINE SCREEN Positive COCAINE METAB. SCREEN Negative METHADONE SCREEN Negative OPIATES SCREEN Negative OXYCODONE SCREEN Negative PHENCYCLIDINE SCREEN Negative Lactic acid with reflex Collection Time: 08/05/23 8:30 PM Result Value Ref Range LACTIC ACID 0.8 0.7 - 2.0 mmol/L POCT glucose meter Collection Time: 08/05/23 10:54 PM Result Value Ref Range Glucose 93 70 - 100 mg/dL Lactic acid with reflex Collection Time: 08/06/23 4:16 AM Result Value Ref Range LACTIC ACID 0.9 0.7 - 2.0 mmol/L CBC auto differential Collection Time: 08/06/23 4:16 AM Result Value Ref Range Auto WBC 6.5 3.6 - 10.7 10*3/uL RBC 3.57 (L) 3.80 - 5.20 10*6/uL Hemoglobin 10.7 (L) 11.7 - 16.0 g/dL Hematocrit 32.3 (L) 35.0 - 47.0 % MCV 90.5 77.0 - 99.0 fL MCH 30.0 26.0 - 34.0 pg MCHC 33.1 30.5 - 36.0 % RDW 12.3 11.5 - 15.0 % Platelets 240 140 - 440 10*3/uL MPV 10.2 9.0 - 12.7 fL nRBC 0.0 0.0 - 2.0 /100 WBCs Neutrophils Relative 51.9 38.0 - 82.0 % Lymphocytes Relative 38.8 15.0 - 45.0 % Monocytes Relative 6.8 5.0 - 13.0 % Eosinophils Relative 1.7 0.0 - 6.0 % Basophils Relative 0.5 0.0 - 2.0 % Immature Grans % 0.3 0.0 - 2.0 % Neutrophils Absolute 3.4 1.8 - 7.5 10*3/uL Lymphocytes Absolute 2.5 1.0 - 4.3 10*3/uL Monocytes Absolute 0.4 0.0 - 0.9 10*3/uL Eosinophils Absolute 0.1 0.0 - 0.5 10*3/uL Basophils Absolute 0.0 0.0 - 0.2 10*3/uL Immature Grans Absolute 0.0 <0.1 10*3/uL Comprehensive metabolic panel Collection Time: 08/06/23 4:16 AM Result Value Ref Range SODIUM 138 135 - 145 mmol/L POTASSIUM 3.5 3.5 - 5.1 mmol/L CHLORIDE 112 (H) 98 - 107 mmol/L CARBON DIOXIDE 21 (L) 22 - 30 mmol/L ANION GAP 5 3 - 13 mmol/L UREA NITROGEN 10 7 - 17 mg/dL CREATININE 0.37 (L) 0.52 - 1.04 mg/dL GLUCOSE 90 70 - 100 mg/dL CALCIUM 8.1 (L) 8.4 - 10.4 mg/dL AST (SGOT) 32 15 - 46 U/L ALT 27 0 - 34 U/L ALKALINE PHOSPHATASE 88 38 - 126 U/L ALBUMIN 3.1 (L) 3.5 - 5.0 g/dL BILIRUBIN, TOTAL 0.4 0.2 - 1.3 mg/dL TOTAL PROTEIN 5.6 (L) 6.3 - 8.2 g/dL eGFR >90.0 >60.0 mL/min/1.73m*2 TSH Collection Time: 08/06/23 4:16 AM Result Value Ref Range THYROID STIMULATING HORMONE 3.775 0.465 - 4.680 uIU/mL Magnesium Collection Time: 08/06/23 4:16 AM Result Value Ref Range MAGNESIUM 1.9 1.6 - 2.3 mg/dL Since admission: Recent Labs 08/06/23 0416 ALKPHOS 88 ALT 27 AST 32 BILITOT 0.4 Stroke Specific Labs: TSH: Lab Results Component Value Date TSH 3.775 08/06/2023 Radiology Personal review: Per radiology report CT of the head without contrast did not show any acute intracranial abnormality MRI of the brain without contrast per radiology report did show white matter changes that are nonspecific Neurophysiology Results: EEG: Pending EMG/NCS: N/A. ASSESSMENT / PLAN / RECOMMENDATIONS : Assessment: Seizure-like activity Recommendations: -We will follow the results of the EEG ordered by the primary team and we do recommend that the patient follow-up outpatient with neurology for further management. However possible, this activity does not entirely line up with a seizure the patient did not have a postictal state. Disposition/Discharge issues: -Follow the results of the EEG, we do recommend that this patient follows with neurology outpatientfor further management Thank you. Patient seen and discussed with Dr. May Associated attestation - Cm May MD - 08/07/2023 2:38 PM EDT Attestation Note: I have personally performed a face to face diagnostic evaluation on this patient. Labs, maging studies and electronic medical record have been reviewed by me. This note documented by the resident physician reflects my history, exam and medical decision making as discussed with the resident physician. I have reviewed and agree with the care plan. Changes were made in the orders as necessary My history, exam, assessment and plan are as follows. Comments by the neurology attending: Patient is being seen by me for evaluation of experiencing generalized shaking activity that was suspected of seizure event. The above episode lasted for a few minutes and was witnessed by the EMS services who treated her with 10 mg of intranasal Versed which, resolved her symptoms. The patient had a similar episode while at the [facility] ER which was treated by 4 mg of IV Ativan and 4 g of IV Keppra which reported her symptoms. Today, the patient is symptom-free. Patient's EEG is normal. Patient's MRI study of the brain shows bihemispheric small vessel disease in the form of bihemispheric white matter disease most prominently noted on T2 and FLAIR imaging sequences. The patient has a nonfocal and normal neurological exam. In addition, she has a normal mental status exam along with normal speech and good fund of knowledge as well as appropriate attention span. The patient is currently taking Keppra 500 mg twice daily as maintenance dose. For detailed H&P, please review resident physician's note. Clinical impression: Seizure-like activity, raising strong suspicion for idiopathic seizures. Based on history of multiple medical and psychiatric problems for which she is being treated through outpatient medical services appropriately. Currently symptom-free. Recommendations: Continue current Keppra 500 mg twice daily treatment indefinitely. Outpatient neurology follow-up, 4 to 6 weeks postdischarge for further evaluation and recommendations. Please implement seizure precautions. Please continue with supportive care. Seizure counseling: No driving until seizure free x 6 months. No working on heights x 6 months. No swimming or bathing x 6 months. No sharp object use x 6 months. The patient was counseled to inform the [facility] about the seizure event and surrender license per their discretion - until seizure free x 6 months. Please practice common sense measures to avoid bodily harm and injury. SUDEP related issues were also discussed with the patient and, the patient verbalized understanding. Patient was counseled to not consume alcohol, drugs and should not be smoking. The patient was counseled for adequate dietary intake and, adequate sleep hours. All of the above counseling issues were discussed with the patient in detail and all of the questions and concerns were addressed to her expressed understanding. Disposition: Neurology service is signing off. Please recall us if/as needed. Further recommendations including discharge instructions, per primary and the other care providing teams. Attestation: I spent 80 minutes in providing care to this patient. I discussed the above assessment and plan with the patient in detail and, addressed her questions and concerns to her expressed understanding andsatisfaction. I also discussed the above assessment and plan with the patient's primary team's attending. In addition, I explained to the patient side effects of the medication and, issues related to medication compliance. The patient verbalized understanding. Thank you. * Marco Antonio Peralta MD - 08/06/2023 5:58 AM EDTAssociated Order(s): IP CONSULT TO GI Images from the original note were not included. Department of Internal Medicine Gastroenterology Attending Consult Note Reason for Consult: The patient was seen in consultation at the request of Yany Kang MD re: abnormal ct abdomen pancreatic ?lesion panniculitis. CHIEF COMPLAINT: seizure like activity, abdominal pain History Obtained From: patient, EMR HISTORY OF PRESENT ILLNESS: The patient is a 58 y.o. female with significant past medical history of HTN, hypothyroid, GERD, DM2, hx uterine CA, who presented to the ED with seizure like activity. She was given Versed in route and Ativan in ED with cessation of symptoms. This has never happened to her prior. GI subsequently consulted for abnormal CT findings. CT noting 1.5cm mean axial pancreatic head cystic structure that has increased in size from 2019 (1.1cm) as well as acute mesenteric panniculitis. Patient states that she has known of pancreatic cyst and it is monitored by her PCP Dr Harmon. Today, patient c/o nausea. No emesis. States that she feels wore out. Endorses abdominal pain in periumbilical pain that started last night. Sharp in nature. Last BM last evening (08/04) that consisted of loose stools per patient. Prior BM to that was yesterday morning, small and brown, formed. Nonbloody. States that she has poor appetite at baseline. Weight is stable. ETOH: no Tobacco: no Recreational drug use: no Anticoagulants: no Aspirin/NSAID use: daily ASA O2: no Last EGD: 2017, 2018 x2 Last Colonoscopy: 2018 no report and pt unsure of results Personal history of colon polyps: pt unsure Family history of colon cancer: no Prior abdominal surgeries: hernia repair, gastric bypass (2017), panniculectomy s/p 100 lb weight loss (2019), cholecystectomy, hysterectomy, c section, colectomy (2014) resection rectosigmoid, loweranterior anastamosis and for serosal tear repair in SB 2/2 infection Allergies: Diphenhydramine, Morphine, Tylenol [acetaminophen], and Vancomycin Current Medications: Current Facility-Administered Medications: aspirin EC tablet 81 mg, 81 mg, Oral, Daily, Yany Kang MD, 81 mg at 08/05/232037 enoxaparin (Lovenox) syringe 40 mg, 40 mg, SubCUTAneous, Daily, Yany Kang MD, 40 mg at ferrous sulfate tablet 325 mg, 325 mg, Oral, Daily with breakfast, Yany Kang MD levETIRAcetam in sodium chloride (Keppra) IVPB 500 mg, 500 mg, IntraVENous, BID, Yany Kang MD levothyroxine (Synthroid, Levoxyl) tablet 100 mcg, 100 mcg, Oral, qAM AC, Yany Kang MD losartan (Cozaar) tablet 50 mg, 50 mg, Oral, Daily, Yany Kang MD, 50 mg at 08/05/232037 melatonin tablet 3 mg, 3 mg, Oral, Nightly PRN, Yany Kang MD ondansetron ODT (Zofran-ODT) disintegrating tablet 4 mg, 4 mg, Oral, q8h PRN OR ondansetron (Zofran) injection 4 mg, 4 mg, IntraVENous, q6h PRN, Yany Kang MD polyethylene glycol (PEG) 3350 (Miralax) packet 17 g, 17 g, Oral, Daily PRN, Yany Kang MD rosuvastatin (Crestor) tablet 20 mg, 20 mg, Oral, Daily, Yany Kang MD, 20 mg at 08/05/232037 sertraline (Zoloft) tablet 100 mg, 100 mg, Oral, Daily, Yany Kang MD, 100 mg at 08/05/232037 sodium chloride 0.9 % infusion, 100 mL/hr, IntraVENous, Continuous, Yany Kang MD, Last Rate: 100 mL/hr at 08/05/232031, 100 mL/hr at 08/05/232031 Past Medical History: Active Ambulatory Problems Diagnosis Date Noted Abdominal pannus 11/03/2019 Acute superficial gastritis without hemorrhage 06/16/2017 Chronic back pain 12/05/2014 Headache 12/05/2014 Gastroesophageal reflux disease without esophagitis 02/12/2018 Intestinal malabsorption 02/16/2018 Gastrojejunal anastomotic stricture 04/20/2018 Deficiency of multiple nutrient elements 02/16/2018 Oropharyngeal dysphagia 04/20/2018 Hepatic steatosis 02/12/2018 Morbid obesity (HCC) 02/14/2018 Abdominal pain 04/08/2017 Joint pain 04/08/2017 Essential hypertension 02/12/2018 Recurrent incisional hernia 02/12/2018 Hypothyroidism 03/16/2017 Fatigue 04/08/2017 Unresponsive episode 05/16/2023 Bradycardia 05/18/2023 Resolved Ambulatory Problems Diagnosis Date Noted No Resolved Ambulatory Problems Past Medical History: Diagnosis Date Anxiety Arthritis Cancer (CMS/HCC) (HCC) Cellulitis DDD (degenerative disc disease), cervical Depression Difficult intravenous access Diverticulitis Fibromyalgia GERD (gastroesophageal reflux disease) History of blood transfusion HTN (hypertension) Hyperlipidemia Nausea Type 2 diabetes mellitus without complication (CMS/HCC) (HCC) Past Surgical History: Past Surgical History: Procedure Laterality Date BACK SURGERY 2002 CHOLECYSTECTOMY 2003 COLECTOMY 03/14/2014 repair serosal tear small bowel, resection rectosigmoid, Low Anterior anastomosis. COLONOSCOPY 04/2018 CYSTOSCOPY 03/17/2014 DR Luo. bilat urerteral stent placement. GASTRIC BYPASS 02/12/2018 LRYGB- Dr. Gomez [facility] HERNIA REPAIR 01/21/2019 Dr. Riley - [facility] General Surgery-retrorectus ventral repair w mesh. exp lap, BABATUNDE. HYSTERECTOMY 2007 low transverse INCISIONAL HERNIA REPAIR 02/03/2012 excision of syntheti mesh and use of Strattice with component separation. INCISIONAL HERNIA REPAIR 09/09/2011 [place] NECK SURGERY 2002 OTHER SURGICAL HISTORY 11/03/2019 panniculectomy with vac prevena placement UPPER GASTROINTESTINAL ENDOSCOPY 06/16/2017 PRE-OP PATRICIA UPPER GASTROINTESTINAL ENDOSCOPY 04/06/2018 Social Hx: Social History Socioeconomic History Marital status: Spouse name: Not on file Number of children: Not on file Years of education: Not on file Highest education level: Not on file Occupational History Not on file Tobacco Use Smoking status: Never Smokeless tobacco: Never Substance and Sexual Activity Alcohol use: No Alcohol/week: 0.0 standard drinks of alcohol Drug use: No Sexual activity: Not on file Other Topics Concern Not on file Social History Narrative Not on file Social Determinants of Health Financial Resource Strain: Not on file Food Insecurity: Not on file Transportation Needs: No Transportation Needs (08/06/2023) PRAPARE - Transportation Lack of Transportation (Medical): No Lack of Transportation (Non-Medical): No Physical Activity: Not on file Stress: Not on file Social Connections: Not on file Intimate Partner Violence: Not At Risk (08/06/2023) Humiliation, Afraid, Rape, and Kick questionnaire Fear of Current or Ex-Partner: No Emotionally Abused: No Physically Abused: No Sexually Abused: No Housing Stability: Low Risk (08/06/2023) Housing Stability Vital Sign Unable to Pay for Housing in the Last Year: No Number of Places Lived in the Last Year: 1 Unstable Housing in the Last Year: No Family History: Family History Problem Relation Name Age of Onset Hypertension Brother Heart disease Mother Hyperlipidemia Mother COPD Mother Bleeding Prob Mother Diabetes Mother Heart disease Father Hypertension Paternal Grandmother Hypertension Mother Colon cancer Neg Hx Diabetes Paternal Grandfather Hypertension Paternal Grandfather Social History: TOBACCO: reports that she has never smoked. She has never used smokeless tobacco. ETOH: reports no history of alcohol use. DRUGS: reports no history of drug use. REVIEW OF SYSTEMS: No fever, chills. Endorses night sweats. Poor appetite and normal weight. No SAENZ, visual disturbance, eye pain, jaundice, sore throat or mouth ulcers. No skin rash or itching. No CP, SOB, BUCIO, cough or wheeze. States that she is having chest heaviness. No urinary frequency, urgency, hematuria, or dysuria. Endorses myalgia, arthralgia. No joint swelling. Endorses weakness and fatigue. No numbness, or confusion. GI per HPI. PHYSICAL EXAM: VS: BP 135/71 (BP Location: Right arm) Pulse 50 Temp 36.1 C (97 F) (Temporal) Resp 16 Ht 5'2 (1.575 m) Wt 165 lb (74.8 kg) SpO2 97% BMI 30.18 kg/m Body mass index is 30.18 kg/m . Constitutional: No acute distress. Well-nourished. Well hydrated. Resting in bed comfortably. Head/Eyes: Pupils are equal and round; Conjunctiva are not injected; Sclera are non-icteric. ENT: Ears/nose without external abnormalities. Oral mucosa is pink and moist. Neck: No JVD. No masses or lesion. No thyromegaly. Respiratory: Clear to auscultation bilaterally without any added sounds. Effort is normal. Heart: Regular rate and rhythm. No added sounds. Abdomen: Normal BS, soft, periumbilical tenderness, non-distended; no hepatomegaly. Extremities/Skin: No LE edema; Skin warm to touch and well perfused. Musculoskeletal: AROM in all extremities. Psychiatric: AAO x 3, answers appropriately, normal mood, normal affect. DATA: Recent blood work and relevant radiologic and endoscopic studies were reviewed and discussed with the patient. CBC: Recent Labs 08/05/23 18208/06/23 0416 WBC 9.8 6.5 RBC 4.31 3.57* HGB 12.7 10.7* HCT 39.5 32.3* MCV 91.6 90.5 MCH 29.5 30.0 MCHC 32.2 33.1 RDW 12.3 12.3 PLT 292 240 MPV 10.3 10.2 CMP: Recent Labs 08/05/23 1821 08/06/23 0416 NA 143 138 K 4.0 3.5 CL 110* 112* CO2 21* 21* BUN 13 10 CREATININE 0.47* 0.37* GLUCOSE 96 90 CALCIUM 9.4 8.1* PROT 7.5 5.6* BILITOT 0.5 0.4 ALKPHOS 113 88 AST 41 32 ALT 35* 27 PT/INR: No results for input(s): INR in the last 72 hours. Lactic acid with reflex Order: [id number] - Reflex for Order [id number] Status: Final result Visible to patient: Yes (not seen) Next appt: None 0 Result Notes Component Ref Range & Units 04:16 1 d ago 1 d ago LACTIC ACID 0.7 - 2.0 mmol/L 0.9 0.8 4.1 High Panic Resulting Agency SAC SAC SAC Specimen Collected: 08/06/23 04:16 Last Resulted: 08/06/23 05:04 Radiologic Review Narrative & Impression Patient Name: AYALA ARANDA : 1965 Exam Date/Time: 08/05/2023 18:59 Procedure: CT ABDOMEN PELVIS W CONTRAST Ordering Provider: CALABRESE YASMIN Reason For Exam: Abdominal pain, acute, nonlocalized CT ABDOMEN AND PELVIS WITH CONTRAST CLINICAL INDICATION: Acute abdominal pain. TECHNIQUE: Multi-axial 3mm sections through the abdomen and pelvis following 75 mL of Isoview contrast media. No oral contrast was administered. Coronal and sagittal reconstructions were reviewed. Dose reduction was employed with automated exposure control. COMPARISON: 05/17/2018. FINDINGS: Lung bases: Minimal left basilar atelectasis. Small sliding internal hernia. Liver: Normal size and contours. No focal lesion. 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 Biliary tree: Gallbladder is surgically absent. No biliary dilatation. Spleen: Normal. Adrenals: Normal. Pancreas: Pancreatic head cystic structure measures 1.5 cm mean axial diameter (was 1.1 cm). No pancreatic ductal dilatation. Normal enhancing pancreatic gland. Kidneys: Interval 3 mm left mid renal nonobstructing calculus. Symmetric contrast enhancement without evidence of hydronephrosis. No focal renal lesion is identified. Free air or fluid: None. Mesenteric/retroperitoneal: Wispy stranding within the mid left mesentery suggest acute panniculitis. Aorta: Atherosclerotic calcific aortic and iliac artery changes. Bowel: The appendix is not visualized and no pericecal inflammatory changes are evident.. No dilatation is noted. Abdominal wall: No ventral hernia is evident. Pelvic organs/viscera: No mass identified. Urinary bladder is normally distended. No pelvic free fluid. Uterus is surgically absent Inguinal lymphadenopathy: None. Osseous structures: No osseous abnormality. IMPRESSION: No acute abdominal or pelvic findings to explain symptoms. Acute mesenteric panniculitis. Interval 3 mm nonobstructing left renal calculus. No hydronephrosis or hydroureter. 1.5 cm mean axial pancreatic head cystic structure (was 1.1 cm in 2019) this finding may represent IPMN or pseudocyst. Endoscopic Review [facility] Patient Name: Ayala Aranda Procedure Date: 04/20/2018 11:36 AM Gender: Female Date of : 1965 Age: 53 Admit Type: Outpatient Note Status: Finalized Endoscopist: Truong Gomez MD Procedure: Upper GI endoscopy Indications: Post-bariatric anastomotic stenosis, Follow-up of post-bariatric anastomotic stenosis, Vomiting after Bariatric Surgery Findings: Evidence of a Thao-en-Y gastrojejunostomy was found. The gastrojejunal anastomosis was characterized by healthy appearing mucosa and an intact appearance. This was traversed. There was no evidence of narrowing or ulcer at the gastrojejunal anastomosis. Normal postoperative anatomy.Normal appearing gastrojejunal anastomosis without residual narrowing. Impression: - Thao-en-Y gastrojejunostomy with gastrojejunal anastomosis characterized by an intact appearance and healthy appearing mucosa. - There was no evidence of narrowing or ulcer at the gastrojejunal anastomosis. Normal postoperative anatomy. - No specimens collected. Recommendation: - Resume previous diet. - Continue present medications. - Patient has a contact number available for emergencies. The signs and symptoms of potential delayed complications were discussed with the patient. Return to normal activities tomorrow. Written discharge instructions were provided to the patient[facility] Procedure Date: 04/06/2018 12:42 PM Gender: Female Date of : 1965 Age: 53 Admit Type: Outpatient Note Status: Finalized Endoscopist: Truong Gomez MD Procedure: Upper GI endoscopy Indications: Dysphagia, Nausea with vomiting Findings: Evidence of a Thao-en-Y gastrojejunostomy was found. The gastrojejunal anastomosis was characterized by friable mucosa, mild stenosis and ulceration. This was traversed. The czvsv-xg-jxlkzhg limb was characterized by mild stenosis and ulceration. A TTS dilator was passed through the scope. Dilation with a 16-17-18 mm and a 16 mm anastomotic balloon dilator was performed. Successful balloon dilation with excellent tissue response and minimal bleeding. Impression: - Thao-en-Y gastrojejunostomy with gastrojejunal anastomosis characterized by friable mucosa, ulceration and mild stenosis. - There was no evidence of narrowing or ulcer at the gastrojejunal anastomosis. Normal postoperative anatomy. - No specimens collected. Recommendation: - Resume previous diet. - Continue present medications. - Patient has a contact number available for emergencies. The signs and symptoms of potential delayed complications were discussed with the patient. Return to normal activities tomorrow. Written discharge instructions were provided to the patient. - Repeat upper endoscopy in 2 weeks for retreatment. - Begin twice daily PPI therapy and carafate therapy. Prescriptions given to patient. [facility] Patient Name: Ayala Aranda Procedure Date: 06/16/2017 8:43 AM Gender: Female Date of : 1965 Age: 52 Admit Type: Outpatient Note Status: Finalized Endoscopist: Truong Gomez MD Procedure: Upper GI endoscopy Indications: Suspected gastro-esophageal reflux disease, Preoperative assessment for bariatric surgery to treat morbid obesity, Morbid Obesity with a BMI of 42 kg/m2 Findings: Mild inflammation was found in the gastric antrum. This was biopsied with a cold forceps for Helicobacter pylori testing. Impression: - Gastritis. Biopsied. Recommendation: - Patient has a contact number available for emergencies. The signs and symptoms of potential delayed complications were discussed with the patient. Return to normal activities tomorrow. Written discharge instructions were provided to the patient. - Resume previous diet. - Continue present medications. - Await pathology results. - As a result of the endoscopic findings a proton pump inhibitor was initiated and prescribed. IMPRESSION/RECOMMENDATIONS: Abnormal CT of abdomen- 08/05/23 with acute mesenteric panniculitis and 1.5 cm mean axial pancreatic head cystic structure (was 1.1 cm in 2019) ? IPMN vs pseudocyst Periumbilical abdominal pain- began 4pm yesterday Nausea- no emesis per patient Seizure- new onset, neuro following, started on Keppra -Continue supportive care and medical management per primary team -Follow up with outpatient GI for further work up and surveillance of pancreatic cyst; message sentto outpatient GI office to coordinate The GI/Liver consult service will sign off. Please call if there are any questions, concerns or change of patient's GI condition. Thank you. I have personally seen, interviewed, and examined the patient. I have reviewed the case with the Medical Student/Resident/PA and reviewed their consult/progress note. I agree with all of the above. 58 year old female admitted for seizure and being worked up by neurology. GI issues are stable withpanniculitis and pancreatic cyst on CT scan. Follow up [facility] GI as an outpatient. GI to sign off. Marco Antonio Peralta MD, FACG, AGAF Electronically signed by Marco Antonio Peralta MD 08/06/2023 3:15 PM documented in this [facility]06-06-2024 Telephone encounter Note* Telephone Encounter - ELVIS Sweeney CNP - 08/06/2023 2:58 PM EDT Please schedule outpatient follow up with patient for hospital follow up. She has known hx of pancreatic cyst and mesenteric panniculitis. [id number] Miscellaneous Notes* Telephone Encounter - ELVIS Sweeney CNP - 08/06/2023 2:58 PM EDT Please schedule outpatient follow up with patient for hospital follow up. She has known hx of pancreatic cyst and mesenteric panniculitis. documented in this [facility]06-06-2024 Plan of care note* Care Plan - Tamera Riggins RN - 08/06/2023 12:20 PM EDT Problem: Pain - Adult Goal: Verbalizes/displays adequate comfort level or baseline comfort level Outcome: Progressing Problem: Safety - Adult Goal: Free from fall injury Outcome: Progressing Problem: Discharge Planning Goal: Discharge to home or other facility with appropriate resources Outcome: Progressing Problem: Chronic Conditions and Co-morbidities Goal: Patient's chronic conditions and co-morbidity symptoms are monitored and maintained or improved Outcome: Progressing [id number] Note* Rapid Response Note - Emma Rodriguez RN - 08/06/2023 9:53 AM EDT Called to see for questionable seizure activity. Pts upper extremities continuously shaking on arrival, per nursing this has been going on for 20 minutes with legs noted shaking at times. Pt alert answering questions. VSS, eyes open but then resist pupil check. [id number] Note* Rapid Response Note - Emma Rodriguez RN - 08/06/2023 9:53 AM EDT Called to see for questionable seizure activity. Pts upper extremities continuously shaking on arrival, per nursing this has been going on for 20 minutes with legs noted shaking at times. Pt alert answering questions. VSS, eyes open but then resist pupil check. [facility] [id number] Consult note* Pollo Boateng MD - 08/06/2023 9:07 AM EDT Neurology Consult Note - Neurology Service Patient Name: Ayala Aranda Patient : 1965 Acct: [id number] Date of Admission: 08/05/2023 Room/[facility]: [facility] A PCP: Emma Harmon DO 08/06/2023 Reason for Consult: Seizure like activity History of Presenting Illness: The patient is 58 y.o. -- who is being seen as a new consult for Seizure like activity. Upon speaking to the patient this morning, she states that at around 4:30 PM yesterday she was feeling generally unwell and when she was standing up to walk she started having generalized shaking that was very mild in nature so she felt her blood sugar may have been low so she proceeded to eat a peanut butter jelly sandwich. She proceeded to sit down on the couch and called rosa isela. When her son got there she stated that she was having generalized shaking of her entire body and her eyes were closed but she could hear everything but she could not respond to anything this episode lasted about 10 minutes and stop after she received a medication through the nose by EMS however when she got to the emergency department she started having the same type of episode as previouslymentioned above. She states that she did not bite her tongue but she feels like she may have urinated a little bit during this episode. Per EMS documentation she was given 10 mg of intranasal Versed which seemed to subside her symptoms. In the emergency department the patient had similar symptoms and was given 4 mg of Ativan the patient also received 4000 mg of Keppra which seemed to alleviate her symptoms. Per ED documentation thepatient after receiving the Ativan in about 2 to 3 minutes was back to baseline was no postictal state and she is alert and oriented x 3. NIH at that time was [address] head revealed no acute intracranial abnormalities. Upon my evaluation this morning, the patient states that she is doing much better than she did yesterday but she is still a bit nauseous as she was feeling yesterday. She denies any fevers, chills, vomiting, any headache, dizziness, lightheadedness, tingling, numbness. Patient does state that she is generally weak. 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 Daughter blood glucose levels low and proceeded to eat a peanut butter jelly sandwich. Sat down and called her son andhad generalized shaking of the entire body when her son got there. Duration: 10 minutes Current state: Patient is alert awake attentive and holds good conversation and has a good knowledge of the events that brought her into the hospital. Severity: Not available Modifying factors: Mental health history, history of diabetes Associated symptoms: Nausea Review of systems: General: No reported chills, no fever. HEENT: No reported headache, no head injury. No reported eye pain or eye congestion. No reported ear pain or ear congestion. No reported nasal congestion or nosebleed. No reported throat congestion or infection. Neck: No reported neck pain. No reported neck stiffness. Respiratory: No reported wheezing and no reported shortness of breath. Cardiac: No reported chest pain and no reported palpitations. Gastrointestinal: Patient does state she is nauseous, no abdominal pain and, no reported diarrhea. Musculoskeletal: No reported arthralgia and, no reported low back pain. Endocrine: Patient does have hypothyroidism for which she states she takes a medication (100 mcg oflevothyroxine daily). Patient does state she has a history of Type 1 Diabetes, currently on no medications for this. Psychiatry: Patient does report history of Depression and Anxiety for which she is on medications for. Neurological: No reported alteration in mental state at this time. Patient does state she has generalized weakness. No reported speech deficit. Patient does report seizure like activity yesterday at around 4:30 PM and again when she was in the emergency department. No reported tongue bite. Patient does state she may have urinated a little when she was seizing. No reported stroke. No vision changes. No reported vertigo. No reported hearing loss. No reported gait or ambulatory decline. Past medical History, surgical history, family history and social history were reviewed with the patient/care provider and were reviewed in the chart. Only the available information is documented below. Thank you. 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 COLONOSCOPY 04/2018 CYSTOSCOPY 03/17/2014 DR Luo. bilat urerteral stent placement. GASTRIC BYPASS 02/12/2018 LRYGB- Dr. Gomez [facility] HERNIA REPAIR 01/21/2019 Dr. Riley - [facility] General Surgery-retrorectus ventral repair w mesh. exp lap, BABATUNDE. HYSTERECTOMY 2007 low transverse INCISIONAL HERNIA REPAIR 02/03/2012 excision of syntheti mesh and use of Strattice with component separation. INCISIONAL HERNIA REPAIR 09/09/2011 [place] NECK SURGERY 2002 OTHER SURGICAL HISTORY 11/03/2019 panniculectomy with vac prevena placement UPPER GASTROINTESTINAL ENDOSCOPY 06/16/2017 PRE-OP PATRICIA UPPER GASTROINTESTINAL ENDOSCOPY 04/06/2018 Family History: Family History Problem Relation Name Age of Onset Hypertension Brother Heart disease Mother Hyperlipidemia Mother COPD Mother Bleeding Prob Mother Diabetes Mother Heart disease Father Hypertension Paternal Grandmother Hypertension Mother Colon cancer Neg Hx Diabetes Paternal Grandfather Hypertension Paternal Grandfather Social History: TOBACCO: reports that she has never smoked. She has never used smokeless tobacco. ETOH: reports no history of alcohol use. RECREATIONAL DRUG USE: Social History Substance and Sexual Activity Drug Use No The patient's medications and allergies were reviewed and the available information is documented below. Thank you. Allergies: Diphenhydramine, Morphine, Tylenol [acetaminophen], and Vancomycin Home Medications: Prior to Admission medications Medication Sig Start Date End Date Taking? Authorizing Provider aspirin 81 MG EC tablet Take 1 tablet (81 mg) by mouth daily. 05/19/23 05/18/24 Aakash Granado, Biotin 5 MG tablet dispersible Take 5,000 mcg by mouth in the morning. Historical Provider, cholecalciferol (Vitamin D-3) 50 MCG (2000 UT) capsule Take 2,000 Units by mouth in the morning. Historical Provider, cyanocobalamin (Vitamin B-12) 1000 MCG tablet Take 1,000 mcg by mouth in the morning. Historical Provider, Docusate Sodium (DSS) 100 MG capsule Take 100 mg by mouth daily. 09/27/20 09/07/23 Historical Provider, ferrous sulfate 325 (65 Fe) MG tablet Take 325 mg by mouth daily (with breakfast). Historical Provider, levothyroxine (Tirosint) 100 MCG capsule Take 100 mcg by mouth every morning (before breakfast). Historical Provider, losartan (Cozaar) 50 MG tablet Take 1 tablet (50 mg) by mouth daily. Do not start before May 20, 2023. 05/20/23 05/19/24 Aakash Granado DO rosuvastatin (Crestor) 20 MG tablet Take 20 mg by mouth daily. 03/11/23 09/07/23 Historical Provider, sertraline (Zoloft) 100 MG tablet Take 100 mg by mouth daily. Historical Provider, Current Hospital Medications: Current Facility-Administered Medications: aspirin EC tablet 81 mg, 81 mg, Oral, Daily, Yany Kang MD, 81 mg at 08/05/232037 enoxaparin (Lovenox) syringe 40 mg, 40 mg, SubCUTAneous, Daily, Yany Kang MD, 40 mg at ferrous sulfate tablet 325 mg, 325 mg, Oral, Daily with breakfast, Yany Kang MD ibuprofen tablet 600 mg, 600 mg, Oral, q6h PRN, Tito Wells DO levETIRAcetam in sodium chloride (Keppra) IVPB 500 mg, 500 mg, IntraVENous, BID, Yany Kang MD levothyroxine (Synthroid, Levoxyl) tablet 100 mcg, 100 mcg, Oral, qAM AC, Yany Kang MD, 100 mcgat 08/06/23654 losartan (Cozaar) tablet 50 mg, 50 mg, Oral, Daily, Yany Kang MD, 50 mg at 08/05/232037 melatonin tablet 3 mg, 3 mg, Oral, Nightly PRN, Yany Kang MD ondansetron ODT (Zofran-ODT) disintegrating tablet 4 mg, 4 mg, Oral, q8h PRN OR ondansetron (Zofran) injection 4 mg, 4 mg, IntraVENous, q6h PRN, Yany Kang MD polyethylene glycol (PEG) 3350 (Miralax) packet 17 g, 17 g, Oral, Daily PRN, Yany Kang MD rosuvastatin (Crestor) tablet 20 mg, 20 mg, Oral, Daily, Yany Kang MD, 20 mg at 08/05/232037 sertraline (Zoloft) tablet 100 mg, 100 mg, Oral, Daily, Yany Kang MD, 100 mg at 08/05/232037 sodium chloride 0.9 % infusion, 100 mL/hr, IntraVENous, Continuous, Yany Kang MD, Last Rate: 100 mL/hr at 08/05/232031, 100 mL/hr at 08/05/232031 Continuous Infusions: sodium chloride, 100 mL/hr, Last Rate: 100 mL/hr (08/05/232031) Vital Signs: Patient Vitals for the past 24 hrs: BP Temp Temp src Pulse Resp SpO2 Height Weight 08/06/23 0738 129/71 36.3 C (97.3 F) Temporal 54 -- 96 % -- -- 06/05/24 2254 135/71 36.1 C (97 F) Temporal 50 16 97 % -- -- 08/05/232235 -- -- -- (!) 48 -- 98 % -- -- 08/05/232231 120/66 36.2 C (97.2 F) Temporal 50 18 96 % -- -- 08/05/232131 128/71 -- -- 58 18 95 % -- -- 08/05/232040 131/74 -- -- 59 18 100 % -- -- 08/05/232037 131/74 -- -- -- -- -- -- -- 08/05/23 1900 119/82 -- -- 60 19 96 % -- -- 08/05/23 1831 115/75 -- -- 70 21 96 % -- -- 08/05/231825 -- -- -- -- -- -- 5' 2 (1.575 m) 165 lb (74.8 kg) 08/05/231819 126/70 37.2 C (98.9 F) Axillary 77 15 96 % -- -- 08/05/23 181 -- -- -- 74 (!) 28 98 % -- -- Physical Examination: General Exam: Constitutional: The patient is obese. Cardiovascular: S1 and S2, regular rate and rhythm no overt murmurs. No carotid bruit and normal carotid pulse. Extremities: No cyanosis, no clubbing. Patient does have non pitting edema of the bilateral lower extremities Ophthalmology/funduscopic exam: Unremarkable/normal. Abdominal: Soft, nondistended, nontender to palpation bowel sounds normal. Neurological Exam: Dexterity: The patient is RIGHT handed. Mental Status: Alert, Awake, Oriented x 4, Normal Speech. Follows 1-3 step commands. Fund of knowledge: Patient demonstrates good knowledge about her medical conditions and the events of what brought her into the hospital based on my conversation with her. Attention/concentration: Patient is attentive and demonstrates good concentration upon my conversation with her. Cranial Nerves: CN-II, CN-III, CN-IV, CN-V, CN-, CN-VII, CN-VIII, CN-IX, CN-X, CN-XI and, CN-XII are within normal limits bilaterally. Motor: Bulk = Symmetric and within normal limits bilaterally. Tone = Symmetric and within normal limits bilaterally. Strength = 5+/5 in all 4 extremities. DTRs = Trace throughout. Plantars = Down-going bilaterally. Abnormal movements = None. Opposition = Normal in both upper extremities. Pronator Drift = No pronator drift on the RIGHT and, no pronator drift on the LEFT side. Sensory: Light touch, pinprick and vibration exams are within normal limits. Coordination: Finger to nose is normal on the right side and, on the left side. Heel to gavin is normal on the right side and, on the left side. Rapid alternation movements are normal on the right side and, on the left side. Gait: Deferred due to patient's inability to participate at this time. Romberg: Deferred due to patient's inability to participate at this time. NIHSS score: NIH score was 0 Results: Labs: Last 24hrs Recent Results (from the past 24 hour(s)) POCT glucose meter Collection Time: 08/05/23 6:19 PM Result Value Ref Range Glucose 90 70 - 100 mg/dL ECG 12 lead Collection Time: 08/05/23 6:19 PM Result Value Ref Range Heart Rate 75 bpm QRSD Interval 97 ms QT Interval 395 ms QTC Interval 442 ms P [place] 58 degrees QRS [place] 41 degrees T Wave [place] 0 degrees HI Interval 160 ms CBC auto differential Collection Time: 08/05/23 6:21 PM Result Value Ref Range Auto WBC 9.8 3.6 - 10.7 10*3/uL RBC 4.31 3.80 - 5.20 10*6/uL Hemoglobin 12.7 11.7 - 16.0 g/dL Hematocrit 39.5 35.0 - 47.0 % MCV 91.6 77.0 - 99.0 fL MCH 29.5 26.0 - 34.0 pg MCHC 32.2 30.5 - 36.0 % RDW 12.3 11.5 - 15.0 % Platelets 292 140 - 440 10*3/uL MPV 10.3 9.0 - 12.7 fL nRBC 0.0 0.0 - 2.0 /100 WBCs Neutrophils Relative 64.0 38.0 - 82.0 % Lymphocytes Relative 26.5 15.0 - 45.0 % Monocytes Relative 7.8 5.0 - 13.0 % Eosinophils Relative 0.8 0.0 - 6.0 % Basophils Relative 0.5 0.0 - 2.0 % Immature Grans % 0.4 0.0 - 2.0 % Neutrophils Absolute 6.3 1.8 - 7.5 10*3/uL Lymphocytes Absolute 2.6 1.0 - 4.3 10*3/uL Monocytes Absolute 0.8 0.0 - 0.9 10*3/uL Eosinophils Absolute 0.1 0.0 - 0.5 10*3/uL Basophils Absolute 0.1 0.0 - 0.2 10*3/uL Immature Grans Absolute 0.0 <0.1 10*3/uL Comprehensive metabolic panel Collection Time: 08/05/23 6:21 PM Result Value Ref Range SODIUM 143 135 - 145 mmol/L POTASSIUM 4.0 3.5 - 5.1 mmol/L CHLORIDE 110 (H) 98 - 107 mmol/L CARBON DIOXIDE 21 (L) 22 - 30 mmol/L ANION GAP 12 3 - 13 mmol/L UREA NITROGEN 13 7 - 17 mg/dL CREATININE 0.47 (L) 0.52 - 1.04 mg/dL GLUCOSE 96 70 - 100 mg/dL CALCIUM 9.4 8.4 - 10.4 mg/dL AST (SGOT) 41 15 - 46 U/L ALT 35 (H) 0 - 34 U/L ALKALINE PHOSPHATASE 113 38 - 126 U/L ALBUMIN 4.4 3.5 - 5.0 g/dL BILIRUBIN, TOTAL 0.5 0.2 - 1.3 mg/dL TOTAL PROTEIN 7.5 6.3 - 8.2 g/dL eGFR >90.0 >60.0 mL/min/1.73m*2 Lactic acid with reflex Collection Time: 08/05/23 6:21 PM Result Value Ref Range LACTIC ACID 4.1 (HH) 0.7 - 2.0 mmol/L Hemoglobin A1c Collection Time: 08/05/23 6:21 PM Result Value Ref Range HEMOGLOBIN A1C 5.2 <5.7 % ESTIMATED AVERAGE GLUCOSE 103 mg/dL C-reactive protein Collection Time: 08/05/23 6:21 PM Result Value Ref Range C REACTIVE PROTEIN <5.0 <10.0 mg/L Complete Urinalysis Collection Time: 08/05/23 8:27 PM Result Value Ref Range Color, Urine Light Yellow Lt. Yellow Clarity, Urine Clear Clear pH, Urine 6.0 5.0 - 8.0 pH Leukocytes, Urine 250 (A) Negative Barak/uL Nitrite, Urine Negative Negative Protein, Urine 10 (A) Negative mg/dL Glucose, Urine Normal Normal (<70) mg/dL Bilirubin, Urine Negative Negative mg/dL Ketones, Urine Negative Negative mg/dL Urobilinogen, Urine Normal Normal (0-1) mg/dL Blood, Urine Negative Negative mg/dL RBC, Urine >100 (A) 0 - 2 /HPF WBC, Urine 11-25 (A) 0 - 5 /HPF Squamous Epithelial, Urine 6-10 (A) 3 - 5 /HPF Bacteria, Urine Negative Negative /HPF Mucus, Urine Few Negative /LPF SPECIFIC GRAVITY OF URINE (NUMERIC) >1.030 (H) 1.005 - 1.030 Drug screen panel, emergency Collection Time: 08/05/23 8:27 PM Result Value Ref Range AMPHETAMINE SCREEN Negative BARBITURATES SCREEN Negative BENZODIAZEPINE SCREEN Positive COCAINE METAB. SCREEN Negative METHADONE SCREEN Negative OPIATES SCREEN Negative OXYCODONE SCREEN Negative PHENCYCLIDINE SCREEN Negative Lactic acid with reflex Collection Time: 08/05/23 8:30 PM Result Value Ref Range LACTIC ACID 0.8 0.7 - 2.0 mmol/L POCT glucose meter Collection Time: 08/05/23 10:54 PM Result Value Ref Range Glucose 93 70 - 100 mg/dL Lactic acid with reflex Collection Time: 08/06/23 4:16 AM Result Value Ref Range LACTIC ACID 0.9 0.7 - 2.0 mmol/L CBC auto differential Collection Time: 08/06/23 4:16 AM Result Value Ref Range Auto WBC 6.5 3.6 - 10.7 10*3/uL RBC 3.57 (L) 3.80 - 5.20 10*6/uL Hemoglobin 10.7 (L) 11.7 - 16.0 g/dL Hematocrit 32.3 (L) 35.0 - 47.0 % MCV 90.5 77.0 - 99.0 fL MCH 30.0 26.0 - 34.0 pg MCHC 33.1 30.5 - 36.0 % RDW 12.3 11.5 - 15.0 % Platelets 240 140 - 440 10*3/uL MPV 10.2 9.0 - 12.7 fL nRBC 0.0 0.0 - 2.0 /100 WBCs Neutrophils Relative 51.9 38.0 - 82.0 % Lymphocytes Relative 38.8 15.0 - 45.0 % Monocytes Relative 6.8 5.0 - 13.0 % Eosinophils Relative 1.7 0.0 - 6.0 % Basophils Relative 0.5 0.0 - 2.0 % Immature Grans % 0.3 0.0 - 2.0 % Neutrophils Absolute 3.4 1.8 - 7.5 10*3/uL Lymphocytes Absolute 2.5 1.0 - 4.3 10*3/uL Monocytes Absolute 0.4 0.0 - 0.9 10*3/uL Eosinophils Absolute 0.1 0.0 - 0.5 10*3/uL Basophils Absolute 0.0 0.0 - 0.2 10*3/uL Immature Grans Absolute 0.0 <0.1 10*3/uL Comprehensive metabolic panel Collection Time: 08/06/23 4:16 AM Result Value Ref Range SODIUM 138 135 - 145 mmol/L POTASSIUM 3.5 3.5 - 5.1 mmol/L CHLORIDE 112 (H) 98 - 107 mmol/L CARBON DIOXIDE 21 (L) 22 - 30 mmol/L ANION GAP 5 3 - 13 mmol/L UREA NITROGEN 10 7 - 17 mg/dL CREATININE 0.37 (L) 0.52 - 1.04 mg/dL GLUCOSE 90 70 - 100 mg/dL CALCIUM 8.1 (L) 8.4 - 10.4 mg/dL AST (SGOT) 32 15 - 46 U/L ALT 27 0 - 34 U/L ALKALINE PHOSPHATASE 88 38 - 126 U/L ALBUMIN 3.1 (L) 3.5 - 5.0 g/dL BILIRUBIN, TOTAL 0.4 0.2 - 1.3 mg/dL TOTAL PROTEIN 5.6 (L) 6.3 - 8.2 g/dL eGFR >90.0 >60.0 mL/min/1.73m*2 TSH Collection Time: 08/06/23 4:16 AM Result Value Ref Range THYROID STIMULATING HORMONE 3.775 0.465 - 4.680 uIU/mL Magnesium Collection Time: 08/06/23 4:16 AM Result Value Ref Range MAGNESIUM 1.9 1.6 - 2.3 mg/dL Since admission: Recent Labs 08/06/23 0416 ALKPHOS 88 ALT 27 AST 32 BILITOT 0.4 Stroke Specific Labs: TSH: Lab Results Component Value Date TSH 3.775 08/06/2023 Radiology Personal review: Per radiology report CT of the head without contrast did not show any acute intracranial abnormality MRI of the brain without contrast per radiology report did show white matter changes that are nonspecific Neurophysiology Results: EEG: Pending EMG/NCS: N/A. ASSESSMENT / PLAN / RECOMMENDATIONS : Assessment: Seizure-like activity Recommendations: -We will follow the results of the EEG ordered by the primary team and we do recommend that the patient follow-up outpatient with neurology for further management. However possible, this activity does not entirely line up with a seizure the patient did not have a postictal state. Disposition/Discharge issues: -Follow the results of the EEG, we do recommend that this patient follows with neurology outpatientfor further management Thank you. Patient seen and discussed with Dr. May Associated attestation - Cm May MD - 08/07/2023 2:38 PM EDT Attestation Note: I have personally performed a face to face diagnostic evaluation on this patient. Labs, maging studies and electronic medical record have been reviewed by me. This note documented by the resident physician reflects my history, exam and medical decision making as discussed with the resident physician. I have reviewed and agree with the care plan. Changes were made in the orders as necessary My history, exam, assessment and plan are as follows. Comments by the neurology attending: Patient is being seen by me for evaluation of experiencing generalized shaking activity that was suspected of seizure event. The above episode lasted for a few minutes and was witnessed by the EMS services who treated her with 10 mg of intranasal Versed which, resolved her symptoms. The patient had a similar episode while at the [facility] ER which was treated by 4 mg of IV Ativan and 4 g of IV Keppra which reported her symptoms. Today, the patient is symptom-free. Patient's EEG is normal. Patient's MRI study of the brain shows bihemispheric small vessel disease in the form of bihemispheric white matter disease most prominently noted on T2 and FLAIR imaging sequences. The patient has a nonfocal and normal neurological exam. In addition, she has a normal mental status exam along with normal speech and good fund of knowledge as well as appropriate attention span. The patient is currently taking Keppra 500 mg twice daily as maintenance dose. For detailed H&P, please review resident physician's note. Clinical impression: Seizure-like activity, raising strong suspicion for idiopathic seizures. Based on history of multiple medical and psychiatric problems for which she is being treated through outpatient medical services appropriately. Currently symptom-free. Recommendations: Continue current Keppra 500 mg twice daily treatment indefinitely. Outpatient neurology follow-up, 4 to 6 weeks postdischarge for further evaluation and recommendations. Please implement seizure precautions. Please continue with supportive care. Seizure counseling: No driving until seizure free x 6 months. No working on heights x 6 months. No swimming or bathing x 6 months. No sharp object use x 6 months. The patient was counseled to inform the [facility] about the seizure event and surrender license per their discretion - until seizure free x 6 months. Please practice common sense measures to avoid bodily harm and injury. SUDEP related issues were also discussed with the patient and, the patient verbalized understanding. Patient was counseled to not consume alcohol, drugs and should not be smoking. The patient was counseled for adequate dietary intake and, adequate sleep hours. All of the above counseling issues were discussed with the patient in detail and all of the questions and concerns were addressed to her expressed understanding. Disposition: Neurology service is signing off. Please recall us if/as needed. Further recommendations including discharge instructions, per primary and the other care providing teams. Attestation: I spent 80 minutes in providing care to this patient. I discussed the above assessment and plan with the patient in detail and, addressed her questions and concerns to her expressed understanding andsatisfaction. I also discussed the above assessment and plan with the patient's primary team's attending. In addition, I explained to the patient side effects of the medication and, issues related to medication compliance. The patient verbalized understanding. Thank you. [employer] Work Phone: [phone] NoteHospitalist Progress Note - [facility] - [employer] ([facility] [place] 08/06/2023 8:44 AM [phone]: Please page me for patient care issues. [phone]: Please page [facility] [place] for any issues. Subjective and Objective: Admit Date: 08/05/2023 PCP: Emma Harmon DO Chief Complaint Patient presents with Seizures Per MES pt called 911 because she was not feeling well, witnessed seizure per EMS. Pt had tonic clonic like movements upon arrival. Pt became immediately alert and oriented after receiving IV ativan, no post ictal period noted. Pt has hx of DM, no seizure hx. EMS glucose was 205. NPO diet with enteral medications I/O last 3 completed shifts: In: 1500 (20 mL/kg) [IV Piggyback:1500] Out: - (0 mL/kg) Weight: 74.8 kg @IODETAILS@ @[id number]@ Medications: sodium chloride, 100 mL/hr, Last Rate: 100 mL/hr (08/05/232031) aspirin, 81 mg, Oral, Daily enoxaparin, 40 mg, SubCUTAneous, Daily ferrous sulfate, 325 mg, Oral, Daily with breakfast levETIRAcetam, 500 mg, IntraVENous, BID levothyroxine, 100 mcg, Oral, qAM AC losartan, 50 mg, Oral, Daily rosuvastatin, 20 mg, Oral, Daily sertraline, 100 mg, Oral, Daily Recent Labs 08/05/23182008/06/23 0416 WBC 9.8 6.5 HGB 12.7 10.7* PLT 292 240 Recent Labs 08/05/23182008/06/23 0416 NA 143 138 K 4.0 3.5 CL 110* 112* CO2 21* 21* BUN 13 10 CREATININE 0.47* 0.37* GLUCOSE 96 90 Recent Labs 08/05/23182008/06/23 0416 AST 41 32 ALT 35* 27 BILITOT 0.5 0.4 ALKPHOS 113 88 No results found for: TRIG, HDL, LDLCALC, CHOL No results found for: PHART, PO2ART, TIF6UGL No results for input(s): INR in the last 72 hours. No results for input(s): CKTOTAL, CKMB, TROPONINI in the last 72 hours. No results for input(s): DDIMER in the last 72 hours. Lab Results Component Value Date HGBA1C 5.2 08/05/2023 Lab Results Component Value Date TSH 3.775 08/06/2023 Urine Culture: No results found for this or any previous visit. Objective: Vitals: BP 129/71 Pulse 54 Temp 36.3 ?C (97.3 ?F) (Temporal) Resp 16 Ht 5' 2 (1.575 m) Wt 165 lb (74.8 kg) SpO2 96% BMI 30.18 kg/m? Pulse Ox: SpO2 Av.8 % Min: 95 % Max: 100 % Supplemental O2: Past 24 hours events: having suspected pseudo-seizures this morning GENERAL: appears comfortable and stated age CARDIOVASCULAR: regular RESPIRATORY: clear without rhonchi ABDOMEN: non distended EXTREMITIES: moving appropriately CHRONIC ANATOMY/TUBES/LINES: N/A Running Summary, Assessment, and Plan Ayala is a 58 y.o. female with past medical history below who presented to ED with Chief Complaint of seizure. Also having intermittent abdominal pain and diarrhea. Urine bland. CT abd/pelvis showed no acute pathology. Admitted for further evaluation and management. Brain MRI showed T2/FLAIR supratentorial white matter signal changes are nonspecific but likely sequelae of microvascular ischemia. EEG Neuro and Psych consulted Acute, acute on chronic, unstable/uncontrolled chronic problems/diagnoses: Seizure Intermittent abdominal pain Diarrhea Lactic acidosis Acute mesenteric panniculitis. 1.5 cm mean axial pancreatic head cystic structure (was 1.1 cm in 2019) this finding may represent IPMN or pseudocyst Stable chronic problems affecting care, new non-acute diagnoses: Asymptomatic sinus bradycardia HTN Hypothyroid GERD Nephrolithiasis As a result of the above findings & factors, the following mgmt was pursued: - EEG - Started on Keppra - Neuro consulted - Stool studies - GI consulted - am labs, replace lytes prn - PT/OT/CM/SW as appropriate - delirium precautions: limit night-time awakening - DVT prophylaxis: Lovenox Complexity: Acute illness or injury posing a threat to life or body function (HIGH). Risk: Admission to hospital-level care was considered or occurred (HIGH). Advance Directive: Full Anticipated Discharge - Date - 08/06 - Location - home vs. Psych? - Pending the following - Neuro and Psych eval Total time spent (which include face to face and non face to face encounters) in minutes: 56 Toxic drug monitoring/narrow therapeutic index drug monitoring : # Drug name : Lovenox # Route administered : SQ # Method of monitoring : H&H and renal function Extended Emergency Contact Information Primary Emergency Contact: Jaylyn Aranda Relation: Spouse Secondary Emergency Contact: Vinicio Aranda Relation: Son Tito Wells DO Division of Hospitalist Medicine Inpatient Medical Services/[facility]06-06-2024 [facility] [address] [place] [id number] ROUTINE EEG REPORT Patient Name: Ayala Aranda : 1965 Date of Study: 08/06/23 Duration Recorded: 23 minutes EEG#: [id number] SENIOR TECHNICAL WRITER: Sonia Woods PROVIDER REQUESTING STUDY: Yany Kang MD REASON FOR EXAM: Evaluate for seizures DIAGNOSIS TAG: Transient Neurologic Symptoms (TNS) HISTORY: Ayala Aranda is a 58 y.o. female came in with seizure like activity. She was given intranasal Versed by EMS. She was given 4mg of Ativan in the ED. Seizure like activity stopped. She had no post-ictal period. NIH 0. No focal neuro deficits. She denies h/o Seizure. She is also c/o diarrhea for few weeks now with intermittent abdominal pain. Denies alcohol abuse. MEDICATIONS: Current Facility-Administered Medications Medication Dose Route Frequency Provider Last Rate Last Admin aspirin EC tablet 81 mg 81 mg Oral Daily Yany Kang MD 81 mg at 08/05/232037 enoxaparin (Lovenox) syringe 40 mg 40 mg SubCUTAneous Daily Yany Kang MD 40 mg at 08/05/232038 ferrous sulfate tablet 325 mg 325 mg Oral Daily with breakfast Yany Kang MD levETIRAcetam in sodium chloride (Keppra) IVPB 500 mg 500 mg IntraVENous BID Yany Kang MD levothyroxine (Synthroid, Levoxyl) tablet 100 mcg 100 mcg Oral qAM AC Yany Kang MD 100 mcg at 08/06/23654 losartan (Cozaar) tablet 50 mg 50 mg Oral Daily Yany Kang MD 50 mg at 08/05/232037 melatonin tablet 3 mg 3 mg Oral Nightly PRN Yany Kang MD ondansetron ODT (Zofran-ODT) disintegrating tablet 4 mg 4 mg Oral q8h PRN Paolazam Alejandro Kang MD Or ondansetron (Zofran) injection 4 mg 4 mg IntraVENous q6h PRN Nizam U. MD Pearl polyethylene glycol (PEG) 3350 (Miralax) packet 17 g 17 g Oral Daily PRN Nizam U. MD Pearl rosuvastatin (Crestor) tablet 20 mg 20 mg Oral Daily Nizam UCarola Kang MD 20 mg at 08/05/232037 sertraline (Zoloft) tablet 100 mg 100 mg Oral Daily Yany Kang MD 100 mg at 08/05/232037 sodium chloride 0.9 % infusion 100 mL/hr IntraVENous Continuous Yany Kang MD 100 mL/hr at 08/05/232031 100 mL/hr at 08/05/232031 TECHNICAL ASPECTS: This routine scalp EEG study with video was carried out at [facility]. Scalp electrodes were positioned in person by an medical lab technologist, following patient education, according to the 10-20 International system of electrode placement and maintained for integrity and quality of the recording. EEG data was recorded continuously and digitally stored. The medical lab technologist reviewed all automated detections and manual events and prepared the data for archiving and provider review. Referential and bipolar montages were used for review. TECHNOLOGIST NOTES: No skull or scalp defects were observed. BACKGROUND ACTIVITY: Posterior background activity: A continuous organized and well-modulated 8-9 Hz, 20-40 uV rhythm was seen symmetrically over the posterior head regions bilaterally. Beta range: Fronto-centrally predominant beta range activity (15-25 Hz, 10-20 uV) was seen. Sleep: Stage N2 sleep was reached as evidenced by the appearance of vertex waves and sleep spindles seen symmetrically over the central head regions bilaterally. Normal Variants: No normal variants were identified. 08:46:25 -Continuous slowing, generalized (AP Bipolar) SLOWING: No abnormal slowing was seen. INTERICTAL EPILEPTIFORM ACTIVITY: No epileptiform activity was seen. ICTAL ACTIVITY: No ictal activity was seen. NON-EPILEPTIC EVENTS: None. ACTIVATION PROCEDURES: Photic stimulation was not performed. Hyperventilation was not performed. IMPRESSION AND ACTIONS TAKEN: This routine EEG with video is within normal limits for the awake and sleep states. No abnormal slowing, interictal epileptiform activity, nor seizures are observed. Dwayne Georgi-Fu, PhD Clinical Neurophysiologist James Butt, [facility] [id number] Procedure note* James Butt, DO - 08/06/2023 8:44 AM EDTAssociated Order(s): EEG Procedure(s): EEG Images from the original note were not included. [facility] [address] [place] [address] [id number] ROUTINE EEG REPORT Patient Name: Ayala Aranda : 1965 Date of Study: 08/06/23 Duration Recorded: 23 minutes EEG#: [id number] SENIOR TECHNICAL WRITER: Sonia Woods PROVIDER REQUESTING STUDY: Yany Kang MD REASON FOR EXAM: Evaluate for seizures DIAGNOSIS TAG: Transient Neurologic Symptoms (TNS) HISTORY: Ayala Aranda is a 58 y.o. female came in with seizure like activity. She was given intranasal Versed by EMS. She was given 4mg of Ativan in the ED. Seizure like activity stopped. She had no post-ictal period. NIH 0. No focal neuro deficits. She denies h/o Seizure. She is also c/o diarrhea for few weeks now with intermittent abdominal pain. Denies alcohol abuse. MEDICATIONS: Current Facility-Administered Medications Medication Dose Route Frequency Provider Last Rate Last Admin aspirin EC tablet 81 mg 81 mg Oral Daily Yany Kang MD 81 mg at 08/05/232037 enoxaparin (Lovenox) syringe 40 mg 40 mg SubCUTAneous Daily Yany Kang MD 40 mg at 08/05/232038 ferrous sulfate tablet 325 mg 325 mg Oral Daily with breakfast Yany Kang MD levETIRAcetam in sodium chloride (Keppra) IVPB 500 mg 500 mg IntraVENous BID Yany Kang MD levothyroxine (Synthroid, Levoxyl) tablet 100 mcg 100 mcg Oral qAM AC Yany Kang MD 100 mcg at 08/06/23654 losartan (Cozaar) tablet 50 mg 50 mg Oral Daily Yany Kang MD 50 mg at 08/05/232037 melatonin tablet 3 mg 3 mg Oral Nightly PRN Nizam U. MD Pearl ondansetron ODT (Zofran-ODT) disintegrating tablet 4 mg 4 mg Oral q8h PRN Yany Kang MD Or ondansetron (Zofran) injection 4 mg 4 mg IntraVENous q6h PRN Nizam U. MD Pearl polyethylene glycol (PEG) 3350 (Miralax) packet 17 g 17 g Oral Daily PRN Nizam U. MD Pearl rosuvastatin (Crestor) tablet 20 mg 20 mg Oral Daily Nizam U. MD Pearl 20 mg at 08/05/232037 sertraline (Zoloft) tablet 100 mg 100 mg Oral Daily Niivette Kang MD 100 mg at 08/05/232037 sodium chloride 0.9 % infusion 100 mL/hr IntraVENous Continuous Yany Kang MD 100 mL/hr at 08/05/232031 100 mL/hr at 08/05/232031 TECHNICAL ASPECTS: This routine scalp EEG study with video was carried out at [facility]. Scalp electrodes were positioned in person by an medical lab technologist, following patient education, according to the 10-20 International system of electrode placement and maintained for integrity and quality of the recording. EEG data was recorded continuously and digitally stored. The medical lab technologist reviewed all automated detections and manual events and prepared the data for archiving and provider review. Referential and bipolar montages were used for review. TECHNOLOGIST NOTES: No skull or scalp defects were observed. BACKGROUND ACTIVITY: Posterior background activity: A continuous organized and well-modulated 8-9 Hz, 20-40 uV rhythm was seen symmetrically over the posterior head regions bilaterally. Beta range: Fronto-centrally predominant beta range activity (15-25 Hz, 10-20 uV) was seen. Sleep: Stage N2 sleep was reached as evidenced by the appearance of vertex waves and sleep spindlesseen symmetrically over the central head regions bilaterally. Normal Variants: No normal variants were identified. 08:46:25 -Continuous slowing, generalized (AP Bipolar) SLOWING: No abnormal slowing was seen. INTERICTAL EPILEPTIFORM ACTIVITY: No epileptiform activity was seen. ICTAL ACTIVITY: No ictal activity was seen. NON-EPILEPTIC EVENTS: None. ACTIVATION PROCEDURES: Photic stimulation was not performed. Hyperventilation was not performed. IMPRESSION AND ACTIONS TAKEN: This routine EEG with video is within normal limits for the awake and sleep states. No abnormal slowing, interictal epileptiform activity, nor seizures are observed. Dwayne Hawkins, PhD Clinical Neurophysiologist James Butt DO [facility] [employer] Work Phone: [phone] 354-684106-06-2024 Procedure note* James Butt DO - 08/06/2023 8:44 AM EDTAssociated Order(s): EEG Procedure(s): EEG Images from the original note were not included. [facility] [address] [place] [address] [id number] ROUTINE EEG REPORT Patient Name: Ayala Aranda : 1965 Date of Study: 08/06/23 Duration Recorded: 23 minutes EEG#: [id number] SENIOR TECHNICAL WRITER: Sonia Woods PROVIDER REQUESTING STUDY: Yany Kang MD REASON FOR EXAM: Evaluate for seizures DIAGNOSIS TAG: Transient Neurologic Symptoms (TNS) HISTORY: Ayala Aranda is a 58 y.o. female came in with seizure like activity. She was given intranasal Versed by EMS. She was given 4mg of Ativan in the ED. Seizure like activity stopped. She had no post-ictal period. NIH 0. No focal neuro deficits. She denies h/o Seizure. She is also c/o diarrhea for few weeks now with intermittent abdominal pain. Denies alcohol abuse. MEDICATIONS: Current Facility-Administered Medications Medication Dose Route Frequency Provider Last Rate Last Admin aspirin EC tablet 81 mg 81 mg Oral Daily Yany Kang MD 81 mg at 08/05/232037 enoxaparin (Lovenox) syringe 40 mg 40 mg SubCUTAneous Daily Yany Kang MD 40 mg at 08/05/232038 ferrous sulfate tablet 325 mg 325 mg Oral Daily with breakfast Yany Kang MD levETIRAcetam in sodium chloride (Keppra) IVPB 500 mg 500 mg IntraVENous BID Yany Kang MD levothyroxine (Synthroid, Levoxyl) tablet 100 mcg 100 mcg Oral qAM AC aPolazam UCarola Kang MD 100 mcg at 08/06/23654 losartan (Cozaar) tablet 50 mg 50 mg Oral Daily Nizam Alejandro Kang MD 50 mg at 08/05/232037 melatonin tablet 3 mg 3 mg Oral Nightly PRN Nizam U. MD Pearl ondansetron ODT (Zofran-ODT) disintegrating tablet 4 mg 4 mg Oral q8h PRN Nizam UCarola Kang MD Or ondansetron (Zofran) injection 4 mg 4 mg IntraVENous q6h PRN Nizam U. MD Pearl polyethylene glycol (PEG) 3350 (Miralax) packet 17 g 17 g Oral Daily PRN Nizam UCarola Kang MD rosuvastatin (Crestor) tablet 20 mg 20 mg Oral Daily Nizam U. MD Pearl 20 mg at 08/05/232037 sertraline (Zoloft) tablet 100 mg 100 mg Oral Daily Nizam Alejandro Kang MD 100 mg at 08/05/232037 sodium chloride 0.9 % infusion 100 mL/hr IntraVENous Continuous Nizam Alejandro Kang MD 100 mL/hr at 08/05/232031 100 mL/hr at 08/05/232031 TECHNICAL ASPECTS: This routine scalp EEG study with video was carried out at [facility]. Scalp electrodes were positioned in person by an medical lab technologist, following patient education, according to the 10-20 International system of electrode placement and maintained for integrity and quality of the recording. EEG data was recorded continuously and digitally stored. The medical lab technologist reviewed all automated detections and manual events and prepared the data for archiving and provider review. Referential and bipolar montages were used for review. TECHNOLOGIST NOTES: No skull or scalp defects were observed. BACKGROUND ACTIVITY: Posterior background activity: A continuous organized and well-modulated 8-9 Hz, 20-40 uV rhythm was seen symmetrically over the posterior head regions bilaterally. Beta range: Fronto-centrally predominant beta range activity (15-25 Hz, 10-20 uV) was seen. Sleep: Stage N2 sleep was reached as evidenced by the appearance of vertex waves and sleep spindlesseen symmetrically over the central head regions bilaterally. Normal Variants: No normal variants were identified. 08:46:25 -Continuous slowing, generalized (AP Bipolar) SLOWING: No abnormal slowing was seen. INTERICTAL EPILEPTIFORM ACTIVITY: No epileptiform activity was seen. ICTAL ACTIVITY: No ictal activity was seen. NON-EPILEPTIC EVENTS: None. ACTIVATION PROCEDURES: Photic stimulation was not performed. Hyperventilation was not performed. IMPRESSION AND ACTIONS TAKEN: This routine EEG with video is within normal limits for the awake and sleep states. No abnormal slowing, interictal epileptiform activity, nor seizures are observed. Dwayne Hawkins, PhD Clinical Neurophysiologist James Butt DO documented in this [facility]06-06-2024 Consult note* Marco Antonio Peralta MD - 08/06/2023 5:58 AM EDTAssociated Order(s): IP CONSULT TO GI Images from the original note were not included. Department of Internal Medicine Gastroenterology Attending Consult Note Reason for Consult: The patient was seen in consultation at the request of Yany Kang MD re: abnormal ct abdomen pancreatic ?lesion panniculitis. CHIEF COMPLAINT: seizure like activity, abdominal pain History Obtained From: patient, EMR HISTORY OF PRESENT ILLNESS: The patient is a 58 y.o. female with significant past medical history of HTN, hypothyroid, GERD, DM2, hx uterine CA, who presented to the ED with seizure like activity. She was given Versed in route and Ativan in ED with cessation of symptoms. This has never happened to her prior. GI subsequently consulted for abnormal CT findings. CT noting 1.5cm mean axial pancreatic head cystic structure that has increased in size from 2019 (1.1cm) as well as acute mesenteric panniculitis. Patient states that she has known of pancreatic cyst and it is monitored by her PCP Dr Harmon. Today, patient c/o nausea. No emesis. States that she feels wore out. Endorses abdominal pain in periumbilical pain that started last night. Sharp in nature. Last BM last evening (08/04) that consisted of loose stools per patient. Prior BM to that was yesterday morning, small and brown, formed. Nonbloody. States that she has poor appetite at baseline. Weight is stable. ETOH: no Tobacco: no Recreational drug use: no Anticoagulants: no Aspirin/NSAID use: daily ASA O2: no Last EGD: 2017, 2018 x2 Last Colonoscopy: 2018 no report and pt unsure of results Personal history of colon polyps: pt unsure Family history of colon cancer: no Prior abdominal surgeries: hernia repair, gastric bypass (2017), panniculectomy s/p 100 lb weight loss (2019), cholecystectomy, hysterectomy, c section, colectomy (2014) resection rectosigmoid, loweranterior anastamosis and for serosal tear repair in SB / infection Allergies: Diphenhydramine, Morphine, Tylenol [acetaminophen], and Vancomycin Current Medications: Current Facility-Administered Medications: aspirin EC tablet 81 mg, 81 mg, Oral, Daily, Yany Kang MD, 81 mg at 08/05/232037 enoxaparin (Lovenox) syringe 40 mg, 40 mg, SubCUTAneous, Daily, Yany Kang MD, 40 mg at ferrous sulfate tablet 325 mg, 325 mg, Oral, Daily with breakfast, Yany Kang MD levETIRAcetam in sodium chloride (Keppra) IVPB 500 mg, 500 mg, IntraVENous, BID, Yany Kang MD levothyroxine (Synthroid, Levoxyl) tablet 100 mcg, 100 mcg, Oral, qAM AC, Yany Kang MD losartan (Cozaar) tablet 50 mg, 50 mg, Oral, Daily, Yany Kang MD, 50 mg at 08/05/232037 melatonin tablet 3 mg, 3 mg, Oral, Nightly PRN, Yany Kang MD ondansetron ODT (Zofran-ODT) disintegrating tablet 4 mg, 4 mg, Oral, q8h PRN OR ondansetron (Zofran) injection 4 mg, 4 mg, IntraVENous, q6h PRN, Yany Kang MD polyethylene glycol (PEG) 3350 (Miralax) packet 17 g, 17 g, Oral, Daily PRN, Yany Kang MD rosuvastatin (Crestor) tablet 20 mg, 20 mg, Oral, Daily, Yany Kang MD, 20 mg at 08/05/232037 sertraline (Zoloft) tablet 100 mg, 100 mg, Oral, Daily, Yany Kang MD, 100 mg at 08/05/232037 sodium chloride 0.9 % infusion, 100 mL/hr, IntraVENous, Continuous, Yany Kang MD, Last Rate: 100 mL/hr at 08/05/232031, 100 mL/hr at 08/05/232031 Past Medical History: Active Ambulatory Problems Diagnosis Date Noted Abdominal pannus 11/03/2019 Acute superficial gastritis without hemorrhage 06/16/2017 Chronic back pain 12/05/2014 Headache 12/05/2014 Gastroesophageal reflux disease without esophagitis 02/12/2018 Intestinal malabsorption 02/16/2018 Gastrojejunal anastomotic stricture 04/20/2018 Deficiency of multiple nutrient elements 02/16/2018 Oropharyngeal dysphagia 04/20/2018 Hepatic steatosis 02/12/2018 Morbid obesity (HCC) 02/14/2018 Abdominal pain 04/08/2017 Joint pain 04/08/2017 Essential hypertension 02/12/2018 Recurrent incisional hernia 02/12/2018 Hypothyroidism 03/16/2017 Fatigue 04/08/2017 Unresponsive episode 05/16/2023 Bradycardia 05/18/2023 Resolved Ambulatory Problems Diagnosis Date Noted No Resolved Ambulatory Problems Past Medical History: Diagnosis Date Anxiety Arthritis Cancer (CMS/HCC) (HCC) Cellulitis DDD (degenerative disc disease), cervical Depression Difficult intravenous access Diverticulitis Fibromyalgia GERD (gastroesophageal reflux disease) History of blood transfusion HTN (hypertension) Hyperlipidemia Nausea Type 2 diabetes mellitus without complication (CMS/HCC) (HCC) Past Surgical History: Past Surgical History: Procedure Laterality Date BACK SURGERY 2003 CHOLECYSTECTOMY 2003 COLECTOMY 03/14/2014 repair serosal tear small bowel, resection rectosigmoid, Low Anterior anastomosis. COLONOSCOPY 04/2018 CYSTOSCOPY 03/17/2014 DR Luo. bilat urerteral stent placement. GASTRIC BYPASS 02/12/2018 LRYGB- Dr. Gomez [facility] HERNIA REPAIR 01/21/2019 Dr. Riley - [facility] General Surgery-retrorectus ventral repair w mesh. exp lap, BABATUNDE. HYSTERECTOMY 2008 low transverse INCISIONAL HERNIA REPAIR 02/03/2012 excision of syntheti mesh and use of Strattice with component separation. INCISIONAL HERNIA REPAIR 09/09/2011 [place] NECK SURGERY 2003 OTHER SURGICAL HISTORY 11/03/2019 panniculectomy with vac prevena placement UPPER GASTROINTESTINAL ENDOSCOPY 06/16/2017 PRE-OP PATRICIA UPPER GASTROINTESTINAL ENDOSCOPY 04/06/2018 Social Hx: Social History Socioeconomic History Marital status: Spouse name: Not on file Number of children: Not on file Years of education: Not on file Highest education level: Not on file Occupational History Not on file Tobacco Use Smoking status: Never Smokeless tobacco: Never Substance and Sexual Activity Alcohol use: No Alcohol/week: 0.0 standard drinks of alcohol Drug use: No Sexual activity: Not on file Other Topics Concern Not on file Social History Narrative Not on file Social Determinants of Health Financial Resource Strain: Not on file Food Insecurity: Not on file Transportation Needs: No Transportation Needs (08/06/2023) PRAPARE - Transportation Lack of Transportation (Medical): No Lack of Transportation (Non-Medical): No Physical Activity: Not on file Stress: Not on file Social Connections: Not on file Intimate Partner Violence: Not At Risk (08/06/2023) Humiliation, Afraid, Rape, and Kick questionnaire Fear of Current or Ex-Partner: No Emotionally Abused: No Physically Abused: No Sexually Abused: No Housing Stability: Low Risk (08/06/2023) Housing Stability Vital Sign Unable to Pay for Housing in the Last Year: No Number of Places Lived in the Last Year: 1 Unstable Housing in the Last Year: No Family History: Family History Problem Relation Name Age of Onset Hypertension Brother Heart disease Mother Hyperlipidemia Mother COPD Mother Bleeding Prob Mother Diabetes Mother Heart disease Father Hypertension Paternal Grandmother Hypertension Mother Colon cancer Neg Hx Diabetes Paternal Grandfather Hypertension Paternal Grandfather Social History: TOBACCO: reports that she has never smoked. She has never used smokeless tobacco. ETOH: reports no history of alcohol use. DRUGS: reports no history of drug use. REVIEW OF SYSTEMS: No fever, chills. Endorses night sweats. Poor appetite and normal weight. No SAENZ, visual disturbance, eye pain, jaundice, sore throat or mouth ulcers. No skin rash or itching. No CP, SOB, BUCIO, cough or wheeze. States that she is having chest heaviness. No urinary frequency, urgency, hematuria, or dysuria. Endorses myalgia, arthralgia. No joint swelling. Endorses weakness and fatigue. No numbness, or confusion. GI per HPI. PHYSICAL EXAM: VS: BP 135/71 (BP Location: Right arm) Pulse 50 Temp 36.1 C (97 F) (Temporal) Resp 16 Ht 5'2 (1.575 m) Wt 165 lb (74.8 kg) SpO2 97% BMI 30.18 kg/m Body mass index is 30.18 kg/m . Constitutional: No acute distress. Well-nourished. Well hydrated. Resting in bed comfortably. Head/Eyes: Pupils are equal and round; Conjunctiva are not injected; Sclera are non-icteric. ENT: Ears/nose without external abnormalities. Oral mucosa is pink and moist. Neck: No JVD. No masses or lesion. No thyromegaly. Respiratory: Clear to auscultation bilaterally without any added sounds. Effort is normal. Heart: Regular rate and rhythm. No added sounds. Abdomen: Normal BS, soft, periumbilical tenderness, non-distended; no hepatomegaly. Extremities/Skin: No LE edema; Skin warm to touch and well perfused. Musculoskeletal: AROM in all extremities. Psychiatric: AAO x 3, answers appropriately, normal mood, normal affect. DATA: Recent blood work and relevant radiologic and endoscopic studies were reviewed and discussed with the patient. CBC: Recent Labs 08/05/231 08/06/23 0416 WBC 9.8 6.5 RBC 4.31 3.57* HGB 12.7 10.7* HCT 39.5 32.3* MCV 91.6 90.5 MCH 29.5 30.0 MCHC 32.2 33.1 RDW 12.3 12.3 PLT 292 240 MPV 10.3 10.2 CMP: Recent Labs 08/05/23 1821 08/06/23 0416 NA 143 138 K 4.0 3.5 CL 110* 112* CO2 21* 21* BUN 13 10 CREATININE 0.47* 0.37* GLUCOSE 96 90 CALCIUM 9.4 8.1* PROT 7.5 5.6* BILITOT 0.5 0.4 ALKPHOS 113 88 AST 41 32 ALT 35* 27 PT/INR: No results for input(s): INR in the last 72 hours. Lactic acid with reflex Order: [id number] - Reflex for Order [id number] Status: Final result Visible to patient: Yes (not seen) Next appt: None 0 Result Notes Component Ref Range & Units 04:16 1 d ago 1 d ago LACTIC ACID 0.7 - 2.0 mmol/L 0.9 0.8 4.1 High Panic Resulting Agency SAC SAC SAC Specimen Collected: 08/06/23 04:16 Last Resulted: 08/06/23 05:04 Radiologic Review Narrative & Impression Patient Name: AYALA ARANDA : 1965 [facility]#: [id number] Exam Date/Time: 08/05/2023 18:59 Procedure: CT ABDOMEN PELVIS W CONTRAST Ordering Provider: CALABRESE YASMIN Reason For Exam: Abdominal pain, acute, nonlocalized CT ABDOMEN AND PELVIS WITH CONTRAST CLINICAL INDICATION: Acute abdominal pain. TECHNIQUE: Multi-axial 3mm sections through the abdomen and pelvis following 75 mL of Isoview contrast media. No oral contrast was administered. Coronal and sagittal reconstructions were reviewed. Dose reduction was employed with automated exposure control. COMPARISON: 05/17/2018. FINDINGS: Lung bases: Minimal left basilar atelectasis. Small sliding internal hernia. Liver: Normal size and contours. No focal lesion. 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 Biliary tree: Gallbladder is surgically absent. No biliary dilatation. Spleen: Normal. Adrenals: Normal. Pancreas: Pancreatic head cystic structure measures 1.5 cm mean axial diameter (was 1.1 cm). No pancreatic ductal dilatation. Normal enhancing pancreatic gland. Kidneys: Interval 3 mm left mid renal nonobstructing calculus. Symmetric contrast enhancement without evidence of hydronephrosis. No focal renal lesion is identified. Free air or fluid: None. Mesenteric/retroperitoneal: Wispy stranding within the mid left mesentery suggest acute panniculitis. Aorta: Atherosclerotic calcific aortic and iliac artery changes. Bowel: The appendix is not visualized and no pericecal inflammatory changes are evident.. No dilatation is noted. Abdominal wall: No ventral hernia is evident. Pelvic organs/viscera: No mass identified. Urinary bladder is normally distended. No pelvic free fluid. Uterus is surgically absent Inguinal lymphadenopathy: None. Osseous structures: No osseous abnormality. IMPRESSION: No acute abdominal or pelvic findings to explain symptoms. Acute mesenteric panniculitis. Interval 3 mm nonobstructing left renal calculus. No hydronephrosis or hydroureter. 1.5 cm mean axial pancreatic head cystic structure (was 1.1 cm in 2019) this finding may represent IPMN or pseudocyst. Endoscopic [facility] Patient Name: Ayala Aranda Procedure Date: 04/20/2018 11:36 AM Gender: Female Date of : 1965 Age: 53 Admit Type: Outpatient Note Status: Finalized Endoscopist: Truong Gomez MD Procedure: Upper GI endoscopy Indications: Post-bariatric anastomotic stenosis, Follow-up of post-bariatric anastomotic stenosis, Vomiting after Bariatric Surgery Findings: Evidence of a Thao-en-Y gastrojejunostomy was found. The gastrojejunal anastomosis was characterized by healthy appearing mucosa and an intact appearance. This was traversed. There was no evidence of narrowing or ulcer at the gastrojejunal anastomosis. Normal postoperative anatomy.Normal appearing gastrojejunal anastomosis without residual narrowing. Impression: - Thao-en-Y gastrojejunostomy with gastrojejunal anastomosis characterized by an intact appearance and healthy appearing mucosa. - There was no evidence of narrowing or ulcer at the gastrojejunal anastomosis. Normal postoperative anatomy. - No specimens collected. Recommendation: - Resume previous diet. - Continue present medications. - Patient has a contact number available for emergencies. The signs and symptoms of potential delayed complications were discussed with the patient. Return to normal activities tomorrow. Written discharge instructions were provided to the patient. [facility] Patient Name: Ayala Aranda Procedure Date: 04/06/2018 12:42 PM Gender: Female Date of : 1965 Age: 53 Admit Type: Outpatient Note Status: Finalized Endoscopist: Truong Gomez MD Procedure: Upper GI endoscopy Indications: Dysphagia, Nausea with vomiting Findings: Evidence of a Thao-en-Y gastrojejunostomy was found. The gastrojejunal anastomosis was characterized by friable mucosa, mild stenosis and ulceration. This was traversed. The [id number] limb was characterized by mild stenosis and ulceration. A TTS dilator was passed through the scope. Dilation with a 16-17-18 mm and a 16 mm anastomotic balloon dilator was performed. Successful balloon dilation with excellent tissue response and minimal bleeding. Impression: - Thao-en-Y gastrojejunostomy with gastrojejunal anastomosis characterized by friable mucosa, ulceration and mild stenosis. - There was no evidence of narrowing or ulcer at the gastrojejunal anastomosis. Normal postoperative anatomy. - No specimens collected. Recommendation: - Resume previous diet. - Continue present medications. - Patient has a contact number available for emergencies. The signs and symptoms of potential delayed complications were discussed with the patient. Return to normal activities tomorrow. Written discharge instructions were provided to the patient. - Repeat upper endoscopy in 2 weeks for retreatment. - Begin twice daily PPI therapy and carafate therapy. Prescriptions given to patient. Endoscopy Center- [facility] Patient Name: Ayala Aranda Procedure Date: 06/16/2017 8:43 AM Gender: Female Date of : 1965 Age: 52 Admit Type: Outpatient Note Status: Finalized Endoscopist: Truong Gomez MD Procedure: Upper GI endoscopy Indications: Suspected gastro-esophageal reflux disease, Preoperative assessment for bariatric surgery to treat morbid obesity, Morbid Obesity with a BMI of 42 kg/m2 Findings: Mild inflammation was found in the gastric antrum. This was biopsied with a cold forceps for Helicobacter pylori testing. Impression: - Gastritis. Biopsied. Recommendation: - Patient has a contact number available for emergencies. The signs and symptoms of potential delayed complications were discussed with the patient. Return to normal activities tomorrow. Written discharge instructions were provided to the patient. - Resume previous diet. - Continue present medications. - Await pathology results. - As a result of the endoscopic findings a proton pump inhibitor was initiated and prescribed. IMPRESSION/RECOMMENDATIONS: Abnormal CT of abdomen- 08/05/23 with acute mesenteric panniculitis and 1.5 cm mean axial pancreatic head cystic structure (was 1.1 cm in 2019) ? IPMN vs pseudocyst Periumbilical abdominal pain- began 4pm yesterday Nausea- no emesis per patient Seizure- new onset, neuro following, started on Keppra -Continue supportive care and medical management per primary team -Follow up with outpatient GI for further work up and surveillance of pancreatic cyst; message sentto outpatient GI office to coordinate The GI/Liver consult service will sign off. Please call if there are any questions, concerns or change of patient's GI condition. Thank you. I have personally seen, interviewed, and examined the patient. I have reviewed the case with the Medical Student/Resident/PA and reviewed their consult/progress note. I agree with all of the above. 58 year old female admitted for seizure and being worked up by neurology. GI issues are stable withpanniculitis and pancreatic cyst on CT scan. Follow up [facility] as an outpatient. GI to sign off. Marco Antonio Peralta MD, FACG, AGAF Electronically signed by Marco Antonio Peralta MD 08/06/2023 3:15 PM [facility] [employer] Work Phone: [phone]) 285-633706-06-2024 Plan of care note* Care Plan - Darrell Garnica RN - 08/06/2023 2:12 AM EDT Problem: Pain - Adult Goal: Verbalizes/displays adequate comfort level or baseline comfort level Outcome: Progressing Problem: Safety - Adult Goal: Free from fall injury Outcome: Progressing Problem: Discharge Planning Goal: Discharge to home or other facility with appropriate resources Outcome: Progressing Problem: Chronic Conditions and Co-morbidities Goal: Patient's chronic conditions and co-morbidity symptoms are monitored and maintained or improved Outcome: Progressing The patient is Moderately Stable - Low risk of patient condition declining or worsening The patient's goals for the shift include Pt will get rest The clinical goals for the shift include Pt will remain safe while on the unit [facility] [id number] Nurse Note* Darrell Garnica RN - 08/05/2023 11:41 PM EDT Pt arrived on unit from ED around 22:15. RN was notified by NA that the pt's HR was in the 40's. RNbegan assessment. NA then notified RN that the pt was reporting numbness and tingling in face. NIH performed by RN and by second RN from neuro unit. 6 for the RN 8-9 for the neuro unit RN. Non-urgentrapid notified. At bedside 23:00, NIH of 3-[address] Kang notified. MRI to be scheduled for pt. [id number]* Darrell Garnica RN - 08/05/2023 11:41 PM EDT Pt arrived on unit from ED around 22:15. RN was notified by NA that the pt's HR was in the 40's. RNbegan assessment. NA then notified RN that the pt was reporting numbness and tingling in face. NIH performed by RN and by second RN from neuro unit. 6 for the RN 8-9 for the neuro unit RN. Non-urgentrapid notified. At bedside 23:00, NIH of 3-[address] Kang notified. MRI to be scheduled for pt. documented in this [facility]06-05-2024 Note* Rapid Response Note - Raissa Carroll RN - 08/05/2023 11:24 PM EDT Called to see patient for NIHSS evaluation. Per staff, facial droop noted, weakness of legs, some sensation changes on L leg. Evaluated per Rapid, no facial droop noted, slight sensory deficit noted L leg. Weakness bilat legs but admitted with this (prior to today no difficulty ambulating). Secure message to Dr Ponce, no stroke team indicated at this time. Dr Kang notified, orders received. Instructed to call for further issues/ concerns. [id number] Note* Rapid Response Note - Raissa Carroll RN - 08/05/2023 11:24 PM EDT Called to see patient for NIHSS evaluation. Per staff, facial droop noted, weakness of legs, some sensation changes on L leg. Evaluated per Rapid, no facial droop noted, slight sensory deficit noted L leg. Weakness bilat legs but admitted with this (prior to today no difficulty ambulating). Secure message to Dr Ponce, no stroke team indicated at this time. Dr Kang notified, orders received. Instructed to call for further issues/ concerns. [id number] NoteCalled to see patient for NIHSS evaluation. Per staff, facial droop noted, weakness of legs, some sensation changes on L leg. Evaluated per Rapid, no facial droop noted, slight sensory deficit noted L leg. Weakness bilat legs but admitted with this (prior to today no difficulty ambulating). Secure message to Dr Ponce, no stroke team indicated at this time. Dr Kang notified, orders received. Instructed to call for further issues/ concerns.[facility] 08-05-2023 Emergency department Note* Shonna Pham RN - 08/05/2023 9:45 PM EDT Patient to floor with transport. Patient is stable, A&Ox4 with even & unlabored respirations. Shonna Pham RN 08/05/232145 [id number] Emergency department Note* Shonna Pham RN - 08/05/2023 9:45 PM EDT Patient to floor with transport. Patient is stable, A&Ox4 with even & unlabored respirations. Shonna Pham RN 08/05/232145 * Shonna Pham RN - 08/05/2023 8:05 PM EDT Pur[place] placed to collect urine sample Shonna Pham RN 08/05/232004 * Zahida Rosas RN - 08/05/2023 7:24 PM EDT Shift change report to JADON Kilpatrick RN 08/05/231923 * Janki Jose RN - 08/05/2023 7:02 PM EDT Report to [place] DIOP. Janki Jose RN 08/05/231901 * Zahida Rosas RN - 08/05/2023 7:00 PM EDT Report from JADON Shearer - seizure pads placed on bed, pt resting comfortably, denies needs at his time. Zahida Rosas RN 08/05/231899 * Janki Jose RN - 08/05/2023 6:49 PM EDT Lactic acid 4.1, Dr. Calabrese notified. Janki Jose RN 08/05/231900 * Janki Jose RN - 08/05/2023 6:19 PM EDT Pt alert and answering questions appropriately at this time. Janki Jose RN 08/05/231818 * Janki Jose RN - 08/05/2023 6:14 PM EDT 4 mg IV ativan given per Dr. Calabrese at this time. Janki Jose RN 08/05/23 1815 * Mandy Calabrese MD - 08/05/2023 6:11 PM EDT Emergency Department Encounter [facility] EMERGENCY DEPT Patient: Ayala Aranda : 1965 Date of Evaluation: 08/05/2023 ED Supervising Physician: Mandy Calabrese MD I personally evaluated Ayala Aranda and made/approved the management plan and take responsibilityfor the patient management. This will serve as my Supervisory note and shared attestation. I did perform a substantive portion of the visit including all aspects of the Medical Decision Making. I wore appropriate PPE for the entirety of this encounter. In brief, Ayala Aranda is a 58 y.o. that presents to the emergency department for altered mental status and concern for seizure-like activity. Per EMS report she has been having some weakness sinceyesterday and has not only been eating or drinking anything. When they arrived family stated that she had been seizing for about 10 minutes. They gave her 10 mg of intranasal Versed which did seem to stop her seizure-like activity however it restarted before she returned to baseline. Patient is unable provide history at this time as she is actively having seizure-like activity. Focused exam: Patient actively seizing with generalized tonic-clonic movements in the exam room. Eyes are clenched shut and unable to fully open them. Abdomen is soft and nontender to palpation. There is no obvious signs of trauma or injury to the extremities. Brief ED course/MDM: 50-year-old female to emergency room today for concern for seizure-like activity. Upon arrival to the emergency department she came into our resuscitation bay. I evaluated her medial upon arrival. She was generalized tonic-clonic movements. She is not tachycardic or hypoxic so there is concern that maybe these are pseudoseizures or nonepileptic seizures. When her arm was placed above her head she was able to move it out of the way of her face so that it would not hit her however when noxious stimuli was done with saline into her eye she did not have any reaction. Given this there is concern that may be this is an epileptic seizure. She is no history of a seizure in the past. I did give her 4 mg of Ativan which did seem to stop the seizure-like activity. About 2 to 3 minutes later she was now alert and oriented x 3. She did not seem to have any kind of confusion or postictal state which makes me less likely to think that this is an epileptic seizure. States that she just has not been feeling very well and having some abdominal pain. Denies any seizure history. Denies any falls without injury. We did get a CT scan of her head to rule out intracranial processes that could lead to seizures including mass or bleed. She has no focal neurologic deficits. She is an NIH of 0 on my exam. I reviewed the CT scan of her head my interpretation is that it is unremarkable. CT scan of her abdomen shows some panniculitis. She has no significant leukocytosis. Her lactic wasmildly elevated at 4 and then down trended to 0.8 after getting fluid resuscitated. Given the concern for seizure she will be admitted for further management of her care. Admitted to the medical service for further management. Admitted in stable condition. Diagnostics interpreted by me: CT head I personally discussed the patient's management with other clinicians: All diagnostic, treatment, and disposition decisions were made by myself in conjunction with the Resident. I also supervised schrader portions of any procedures performed by the Resident. For all further details of the patient's emergency department visit, please see their documentation. (Comment: Please note this report has been produced using speech recognition software and may contain errors related to that system including errors in grammar, punctuation, and spelling, as well as words and phrases that may be inappropriate. If there are any questions or concerns please feel freeto contact the dictating provider for clarification.) Mandy Calabrese MD [employer] Mandy Calabrese MD 08/05/232056 * Janki Jose RN - 08/05/2023 6:11 PM EDT Pt appears to be having seizure like activity at this time. Pt to room 60, Dr. Marrero, Dr. Calabrese, Zahida DIOP and Denis MENEZES at bedside upon pt arrival. Janki Jose RN 08/05/23 1830 documented in this [facility]06-05-2024 History and physical note* Yany Kang MD - 08/05/2023 8:09 PM EDT Images from the original note were not included. Attending History and Physical Admit Date: 08/05/2023 PCP: Emma Harmon DO CHIEF COMPLAINT: Seizure like activity Diarrhea Intermittent abdominal Pain History Obtained From: Patient HISTORY OF PRESENT ILLNESS: Ayala is a 58 y.o. female with past medical history below who presents with chief complaint listed above. Today she came in with seizure like activity. She was given intranasal Versed by EMS. She was affgp2lk of Ativan in the ED. Seizure like activity stopped. She had no post-ictal period. NIH 0. No focal neuro deficits. She denies h/o Seizure. She is also c/o diarrhea for few weeks now with intermittent abdominal pain. Denies alcohol abuse. ED COURSE: On arrival to ED Pt appears to be having seizure like activity at this time CT head 1. No acute intracranial findings. 2. Probable chronic ischemic and atrophic changes. Old medical Record Review as below : Admit date: 05/16/2023 Discharge date: 05/19/2023 Hospital Course: 58 y.o. female with past medical history below who presented to ED with EMS for syncope. When they arrived, she was talking, reported feeling nauseous, and had some facial tingling. She subsequently had an episode of unresponsiveness that lasted 3 minutes. She reports feeling unwell for approximately 3 weeks. She reports that she has had forgetfulness. She states that the first episode happened after getting up from bed, and she walked to the kitchen where she passed out and states when EMS gotthere, her second episode happened after EMS got her up from the ground. Also patient mentioned that that she has been going through a lot of stress at home lately and also states she was not hydrating well. Pt was admitted and noted to be bradycardic so cardiology was consulted. She remained asymptomatic with no neuro deficits. Echo was unremarkable. No events on tele. CT head unremarkable. Labsunremarkable. Cardiology did not believe syncopal episodes to be cardiac related and likely was orthostatic in nature. Pt eager to go home and was educated on orthostatic precautions and told to return if symptoms recur. Pt will follow up with her PCP after discharge. Acute, acute on chronic, unstable/uncontrolled chronic problems/discharge diagnoses: Syncope - likely orthostatic hypotension in the setting of stress, dehydration Asymptomatic sinus bradycardia Will admit for further evaluation and management. 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 COLONOSCOPY 04/2018 CYSTOSCOPY 03/17/2014 DR Luo. bilat urerteral stent placement. GASTRIC BYPASS 02/12/2018 LRYGB- Dr. Gomez [facility] HERNIA REPAIR 01/21/2019 Dr. Riley - [facility] General Surgery-retrorectus ventral repair w mesh. exp lap, BABATUNDE. HYSTERECTOMY 2008 low transverse INCISIONAL HERNIA REPAIR 02/03/2012 excision of syntheti mesh and use of Strattice with component separation. INCISIONAL HERNIA REPAIR 09/09/2011 [place] NECK SURGERY 2002 OTHER SURGICAL HISTORY 11/03/2019 panniculectomy with vac prevena placement UPPER GASTROINTESTINAL ENDOSCOPY 06/16/2017 PRE-OP PATRICIA UPPER GASTROINTESTINAL ENDOSCOPY 04/06/2018 Social History: Social History Socioeconomic History Marital status: Spouse name: Not on file Number of children: Not on file Years of education: Not on file Highest education level: Not on file Occupational History Not on file Tobacco Use Smoking status: Never Smokeless tobacco: Never Substance and Sexual Activity Alcohol use: No Alcohol/week: 0.0 standard drinks of alcohol Drug use: No Sexual activity: Not on file Other Topics Concern Not on file Social History Narrative Not on file Social Determinants of Health Financial Resource Strain: Not on file Food Insecurity: Not on file Transportation Needs: No Transportation Needs (05/17/2023) PRAPARE - Transportation Lack of Transportation (Medical): No Lack of Transportation (Non-Medical): No Physical Activity: Not on file Stress: Not on file Social Connections: Not on file Intimate Partner Violence: Not At Risk (05/17/2023) Humiliation, Afraid, Rape, and Kick questionnaire Fear of Current or Ex-Partner: No Emotionally Abused: No Physically Abused: No Sexually Abused: No Housing Stability: Unknown (05/17/2023) Housing Stability Vital Sign Unable to Pay for Housing in the Last Year: No Number of Places Lived in the Last Year: Not on file Unstable Housing in the Last Year: No Family History: Family History Problem Relation Name Age of Onset Hypertension Brother Heart disease Mother Hyperlipidemia Mother COPD Mother Bleeding Prob Mother Diabetes Mother Heart disease Father Hypertension Paternal Grandmother Hypertension Mother Colon cancer Neg Hx Diabetes Paternal Grandfather Hypertension Paternal Grandfather Medications Prior to Admission: No current facility-administered medications on file prior to encounter. Current Outpatient Medications on File Prior to Encounter Medication Sig Dispense Refill aspirin 81 MG EC tablet Take 1 tablet (81 mg) by mouth daily. 30 tablet 11 Biotin 5 MG tablet dispersible Take 5,000 mcg by mouth in the morning. cholecalciferol (Vitamin D-3) 50 MCG (2000 UT) capsule Take 2,000 Units by mouth in the morning. cyanocobalamin (Vitamin B-12) 1000 MCG tablet Take 1,000 mcg by mouth in the morning. Docusate Sodium (DSS) 100 MG capsule Take 100 mg by mouth daily. ferrous sulfate 325 (65 Fe) MG tablet Take 325 mg by mouth daily (with breakfast). levothyroxine (Tirosint) 100 MCG capsule Take 100 mcg by mouth every morning (before breakfast). losartan (Cozaar) 50 MG tablet Take 1 tablet (50 mg) by mouth daily. Do not start before May 20, 2023. 30 tablet 11 rosuvastatin (Crestor) 20 MG tablet Take 20 mg by mouth daily. sertraline (Zoloft) 100 MG tablet Take 100 mg by mouth daily. Allergies: Allergies Allergen Reactions Diphenhydramine Morphine Tylenol [Acetaminophen] Other Per Vancomycin REVIEW OF SYSTEMS: Constitutional: Negative for fever, chills, activity change and unexpected weight change. HEENT: Negative for congestion, postnasal drip and sneezing. Eyes: Negative for itching and visual disturbance. Respiratory: Negative for apnea, cough, choking, chest tightness, shortness of breath, wheezing andstridor. Cardiovascular: Negative for chest pain. Gastrointestinal: Negative for vomiting, abdominal pain, and blood in stool. Genitourinary: Negative for dysuria, frequency and flank pain. Musculoskeletal: Negative for myalgias and joint swelling. Skin: Negative for rash. Neurological: Negative for dizziness, tremors, seizures, syncope, facial asymmetry, speech difficulty, weakness, numbness and headaches. Hematological: Negative for adenopathy. Psychiatric/Behavioral: Negative for suicidal ideas, behavioral problems, self- injury and dysphoricmood. Vitals: BP 119/82 Pulse 60 Temp 37.2 C (98.9 F) (Axillary) Resp 19 Ht 5' 2 (1.575 m) Wt 165 lb (74.8 kg) SpO2 96% BMI 30.18 kg/m BMI Classification: Pulse Ox: SpO2 Av.5 % Min: 96 % Max: 98 % Supplemental O2: O2 Flow Rate (L/min): 2 L/min PHYSICAL EXAM: General appearance: No apparent distress, appears stated age and cooperative with exam. HEENT: Normal cephalic, atraumatic without obvious deformity. Pupils equal, round, and reactive to light. Extra ocular muscles intact. Conjunctivae/corneas clear. Neck: Supple, with full range of motion. No jugular venous distention. Trachea midline. No lymphadenopathy. Respiratory: Normal respiratory effort. Clear to auscultation, bilaterally without Rales/Wheezes/Rhonchi. Cardiovascular: Regular rate and rhythm with normal S1/S2 without murmurs, rubs or gallops. Abdomen: Soft, non-tender, non-distended with normal bowel sounds. No rebound or guarding. Musculoskeletal: No clubbing, cyanosis or edema bilaterally. Full range of motion without deformity, +2 peripheral pulses in all extremities. Skin: Skin color, texture, turgor normal. No rashes or lesions. Neurologic: Neurovascularly intact without any focal sensory/motor deficits. Cranial nerves: II-XIIintact, grossly non-focal. Psychiatric: Alert and oriented, thought content appropriate, normal insight. DATA: CBC: Recent Labs 08/05/23 1821 WBC 9.8 RBC 4.31 HGB 12.7 HCT 39.5 MCV 91.6 RDW 12.3 PLT 292 BMP: Recent Labs 08/05/23 1821 NA 143 K 4.0 CL 110* CO2 21* BUN 13 CREATININE 0.47* GLUCOSE 96 CALCIUM 9.4 ANIONGAP 12 LIVER PROFILE: Recent Labs 08/05/23 1821 AST 41 ALT 35* BILITOT 0.5 ALKPHOS 113 PROT 7.5 PT/INR: No results for input(s): PROTIME, INR in the last 72 hours. CARDIAC ENZYMES: No results for input(s): TROPONINI in the last 72 hours. Procalcitonin: No results found for: PROCAL Urine Culture: No results found for this or any previous visit. COVID-19 PCR: No results for input(s): COVID19 in the last 72 hours. I reviewed: [x] laboratory results [x] radiographic results At the time of today's encounter. Pt was advised of the results. IMPRESSION: Data: (CAT1) Reviewed 3 or more notes from different specialty or health system (each=1). (CAT1) Reviewed 3 or more labs/studies ordered by another provider not previously counted (each=1, panels count as 1). (CAT1) Ordered 2 new labs and/or studies (each=1, panels count as 1). (LOW: 2x CAT1 or independent historian MOD: 3x CAT1 or 1x CAT3 EXTENSIVE: 3x CAT1 and 1x CAT3) Assessment Discussed management with the ED provider and agree with hospitalization. Acute, acute on chronic, unstable/uncontrolled chronic problems/diagnoses: Seizure Intermittent abdominal pain Diarrhea Lactic acidosis CT Abd No acute abdominal or pelvic findings to explain symptoms. Acute mesenteric panniculitis. Interval 3 mm nonobstructing left renal calculus. No hydronephrosis or hydroureter. 1.5 cm mean axial pancreatic head cystic structure (was 1.1 cm in 2019) this finding may represent IPMN or pseudocyst. Stable chronic problems affecting care, new non-acute diagnoses: Asymptomatic sinus bradycardia HTN Hypothyroid GERD Plan As a result of the above findings & factors, the following mgmt was pursued: -Admit to [facility] -EEG -Seizure precaution -Keppra -NPO -IVF -GI consult ordered -Stool studies -PT/OT eval/increase activity -am labs, replace lytes prn -vitals per routine -home meds as ordered - Delirium precautions: increase activity, limit nighttime disturbances, and avoid anticholinergic meds, benzos, etc -DVT prophylaxis: [] Lovenox [] Heparin [] SCDs [x] Encourage ambulation [] Already on Anticoagulation -see below for additional orders, further recommendations to follow Orders Placed This Encounter Procedures CT head wo IV contrast CT abdomen pelvis w contrast CBC auto differential Comprehensive metabolic panel Lactic acid with reflex Complete Urinalysis with reflex to Culture Complete Urinalysis Lactic acid with reflex Lactic acid with reflex Drug screen panel, emergency Nursing communication Please do Home medication reconciliation Inpatient consult to Gastroenterology--[facility] Inpatient consult to Neurology--[facility] POCT glucose meter ECG 12 lead EEG Admit to inpatient Code status: Full Anticipated Discharge - Date - TBD - Location - TBD - Pending the following - Labs/Images/Hospital course/PT OT evaluation Total time spent (which include face to face and non face to face encounters) : 55 minutes. Toxic drug monitoring/narrow therapeutic index drug monitoring : # Drug name : # Route administered : oral # Method of monitoring : Labs Extended Emergency Contact Information Primary Emergency Contact: Jaylyn Aranda Relation: Spouse Secondary Emergency Contact: Vinicio Aranda Relation: Son Please forward a copy of this H&P to the patient's PCP. Thank you. Electronically signed by Yany Kang MD at 8:09 PM [employer] Work Phone: [phone] 505-646206-05-2024 NoteAttending History and Physical Admit Date: 08/05/2023 PCP: Emma Harmon DO CHIEF COMPLAINT: Seizure like activity Diarrhea Intermittent abdominal Pain History Obtained From: Patient HISTORY OF PRESENT ILLNESS: Ayala is a 58 y.o. female with past medical history below who presents with chief complaint listed above. Today she came in with seizure like activity. She was given intranasal Versed by EMS. She was given 4mg of Ativan in the ED. Seizure like activity stopped. She had no post-ictal period. NIH 0. No focal neuro deficits. She denies h/o Seizure. She is also c/o diarrhea for few weeks now with intermittent abdominal pain. Denies alcohol abuse. ED COURSE: On arrival to ED Pt appears to be having seizure like activity at this time CT head 1. No acute intracranial findings. 2. Probable chronic ischemic and atrophic changes. Old medical Record Review as below : Admit date: 05/16/2023 Discharge date: 05/19/2023 Hospital Course: 58 y.o. female with past medical history below who presented to ED with EMS for syncope. When they arrived, she was talking, reported feeling nauseous, and had some facial tingling. She subsequently had an episode of unresponsiveness that lasted 3 minutes. She reports feeling unwell for approximately 3 weeks. She reports that she has had forgetfulness. She states that the first episode happened after getting up from bed, and she walked to the kitchen where she passed out and states when EMS got there, her second episode happened after EMS got her up from the ground. Also patient mentioned that that she has been going through a lot of stress at home lately and also states she was not hydrating well. Pt was admitted and noted to be bradycardic so cardiology was consulted. She remained asymptomatic with no neuro deficits. Echo was unremarkable. No events on tele. CT head unremarkable. Labs unremarkable. Cardiology did not believe syncopal episodes to be cardiac related and likely was orthostatic in nature. Pt eager to go home and was educated on orthostatic precautions and told to return if symptoms recur. Pt will follow up with her PCP after discharge. Acute, acute on chronic, unstable/uncontrolled chronic problems/discharge diagnoses: Syncope - likely orthostatic hypotension in the setting of stress, dehydration Asymptomatic sinus bradycardia Will admit for further evaluation and management. Past Medical History: Past Medical History: Diagnosis Date Abdominal pain Anxiety Arthritis Cancer (CMS/HCC) ([facility]) uterine Cellulitis Chronic back pain DDD (degenerative disc disease), cervical Deficiency of multiple nutrient elements 02/16/2018 Depression Difficult intravenous access Diverticulitis Fatigue Fibromyalgia GERD (gastroesophageal reflux disease) Headache History of blood transfusion HTN (hypertension) Hyperlipidemia Hypothyroidism Intestinal malabsorption 02/16/2018 Joint pain Morbid obesity (HCC) Nausea Type 2 diabetes mellitus without complication (CMS/HCC) (HCC) since gastric not on meds Past Surgical History: Past Surgical History: Procedure Laterality Date BACK SURGERY 2003 CHOLECYSTECTOMY 2003 COLECTOMY 03/14/2014 repair serosal tear small bowel, resection rectosigmoid, Low Anterior anastomosis. COLONOSCOPY 04/2018 CYSTOSCOPY 03/17/2014 DR Luo. bilat urerteral stent placement. GASTRIC BYPASS 02/12/2018 LRY[facility]- Dr. Gomez [facility] HERNIA REPAIR 01/21/2019 Dr. Riley - [facility] General Surgery-retrorectus ventral repair w mesh. exp lap, BABATUNDE. HYSTERECTOMY 2007 low transverse INCISIONAL HERNIA REPAIR 02/03/2012 excision of syntheti mesh and use of Strattice with component separation. INCISIONAL HERNIA REPAIR 09/09/2011 [place] NECK SURGERY 2002 OTHER SURGICAL HISTORY 11/03/2019 panniculectomy with vac prevena placement UPPER GASTROINTESTINAL ENDOSCOPY 06/16/2017 PRE-OP PATRICIA UPPER GASTROINTESTINAL ENDOSCOPY 04/06/2018 Social History: Social History Socioeconomic History Marital status: Spouse name: Not on file Number of children: Not on file Years of education: Not on file Highest education level: Not on file Occupational History Not on file Tobacco Use Smoking status: Never Smokeless tobacco: Never Substance and Sexual Activity Alcohol use: No Alcohol/week: 0.0 standard drinks of alcohol Drug use: No Sexual activity: Not on file Other Topics Concern Not on file Social History Narrative Not on file Social Determinants of Health Financial Resource Strain: Not on file Food Insecurity: Not on file Transportation Needs: No Transportation Needs (05/17/2023) PRAPARE - Transportation Lack of Transportation (Medical): No Lack of Transportation (Non-Medical): No Physical Activity: Not on file Stress: Not on file Social Connections: Not on file Intimate Partner Violence: Not At Risk (05/17/2023) Humiliation, A (more content not included)...[facility]06-05-2024 History and physical note* Yany Kang MD - 08/05/2023 8:09 PM EDT Images from the original note were not included. Attending History and Physical Admit Date: 08/05/2023 PCP: Emma Harmon DO CHIEF COMPLAINT: Seizure like activity Diarrhea Intermittent abdominal Pain History Obtained From: Patient HISTORY OF PRESENT ILLNESS: Ayala is a 58 y.o. female with past medical history below who presents with chief complaint listed above. Today she came in with seizure like activity. She was given intranasal Versed by EMS. She was [id number] of Ativan in the ED. Seizure like activity stopped. She had no post-ictal period. NIH 0. No focal neuro deficits. She denies h/o Seizure. She is also c/o diarrhea for few weeks now with intermittent abdominal pain. Denies alcohol abuse. ED COURSE: On arrival to ED Pt appears to be having seizure like activity at this time CT head 1. No acute intracranial findings. 2. Probable chronic ischemic and atrophic changes. Old medical Record Review as below : Admit date: 05/16/2023 Discharge date: 05/19/2023 Hospital Course: 58 y.o. female with past medical history below who presented to ED with EMS for syncope. When they arrived, she was talking, reported feeling nauseous, and had some facial tingling. She subsequently had an episode of unresponsiveness that lasted 3 minutes. She reports feeling unwell for approximately 3 weeks. She reports that she has had forgetfulness. She states that the first episode happened after getting up from bed, and she walked to the kitchen where she passed out and states when EMS gotthere, her second episode happened after EMS got her up from the ground. Also patient mentioned that that she has been going through a lot of stress at home lately and also states she was not hydrating well. Pt was admitted and noted to be bradycardic so cardiology was consulted. She remained asymptomatic with no neuro deficits. Echo was unremarkable. No events on tele. CT head unremarkable. Labsunremarkable. Cardiology did not believe syncopal episodes to be cardiac related and likely was orthostatic in nature. Pt eager to go home and was educated on orthostatic precautions and told to return if symptoms recur. Pt will follow up with her PCP after discharge. Acute, acute on chronic, unstable/uncontrolled chronic problems/discharge diagnoses: Syncope - likely orthostatic hypotension in the setting of stress, dehydration Asymptomatic sinus bradycardia Will admit for further evaluation and management. 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 COLONOSCOPY 04/2018 CYSTOSCOPY 03/17/2014 DR Luo. bilat urerteral stent placement. GASTRIC BYPASS 02/12/2018 LRY[facility]- Dr. Gomez [facility] HERNIA REPAIR 01/21/2019 Dr. Riley - [facility] General Surgery-retrorectus ventral repair w mesh. exp lap, BABATUNDE. HYSTERECTOMY 2007 low transverse INCISIONAL HERNIA REPAIR 02/03/2012 excision of syntheti mesh and use of Strattice with component separation. INCISIONAL HERNIA REPAIR 09/09/2011 [place] NECK SURGERY 2002 OTHER SURGICAL HISTORY 11/03/2019 panniculectomy with vac prevena placement UPPER GASTROINTESTINAL ENDOSCOPY 06/16/2017 PRE-OP PATRICIA UPPER GASTROINTESTINAL ENDOSCOPY 04/06/2018 Social History: Social History Socioeconomic History Marital status: Spouse name: Not on file Number of children: Not on file Years of education: Not on file Highest education level: Not on file Occupational History Not on file Tobacco Use Smoking status: Never Smokeless tobacco: Never Substance and Sexual Activity Alcohol use: No Alcohol/week: 0.0 standard drinks of alcohol Drug use: No Sexual activity: Not on file Other Topics Concern Not on file Social History Narrative Not on file Social Determinants of Health Financial Resource Strain: Not on file Food Insecurity: Not on file Transportation Needs: No Transportation Needs (05/17/2023) PRAPARE - Transportation Lack of Transportation (Medical): No Lack of Transportation (Non-Medical): No Physical Activity: Not on file Stress: Not on file Social Connections: Not on file Intimate Partner Violence: Not At Risk (05/17/2023) Humiliation, Afraid, Rape, and Kick questionnaire Fear of Current or Ex-Partner: No Emotionally Abused: No Physically Abused: No Sexually Abused: No Housing Stability: Unknown (05/17/2023) Housing Stability Vital Sign Unable to Pay for Housing in the Last Year: No Number of Places Lived in the Last Year: Not on file Unstable Housing in the Last Year: No Family History: Family History Problem Relation Name Age of Onset Hypertension Brother Heart disease Mother Hyperlipidemia Mother COPD Mother Bleeding Prob Mother Diabetes Mother Heart disease Father Hypertension Paternal Grandmother Hypertension Mother Colon cancer Neg Hx Diabetes Paternal Grandfather Hypertension Paternal Grandfather Medications Prior to Admission: No current facility-administered medications on file prior to encounter. Current Outpatient Medications on File Prior to Encounter Medication Sig Dispense Refill aspirin 81 MG EC tablet Take 1 tablet (81 mg) by mouth daily. 30 tablet 11 Biotin 5 MG tablet dispersible Take 5,000 mcg by mouth in the morning. cholecalciferol (Vitamin D-3) 50 MCG (2000 UT) capsule Take 2,000 Units by mouth in the morning. cyanocobalamin (Vitamin B-12) 1000 MCG tablet Take 1,000 mcg by mouth in the morning. Docusate Sodium (DSS) 100 MG capsule Take 100 mg by mouth daily. ferrous sulfate 325 (65 Fe) MG tablet Take 325 mg by mouth daily (with breakfast). levothyroxine (Tirosint) 100 MCG capsule Take 100 mcg by mouth every morning (before breakfast). losartan (Cozaar) 50 MG tablet Take 1 tablet (50 mg) by mouth daily. Do not start before May 20, 2023. 30 tablet 11 rosuvastatin (Crestor) 20 MG tablet Take 20 mg by mouth daily. sertraline (Zoloft) 100 MG tablet Take 100 mg by mouth daily. Allergies: Allergies Allergen Reactions Diphenhydramine Morphine Tylenol [Acetaminophen] Other Per Vancomycin REVIEW OF SYSTEMS: Constitutional: Negative for fever, chills, activity change and unexpected weight change. HEENT: Negative for congestion, postnasal drip and sneezing. Eyes: Negative for itching and visual disturbance. Respiratory: Negative for apnea, cough, choking, chest tightness, shortness of breath, wheezing andstridor. Cardiovascular: Negative for chest pain. Gastrointestinal: Negative for vomiting, abdominal pain, and blood in stool. Genitourinary: Negative for dysuria, frequency and flank pain. Musculoskeletal: Negative for myalgias and joint swelling. Skin: Negative for rash. Neurological: Negative for dizziness, tremors, seizures, syncope, facial asymmetry, speech difficulty, weakness, numbness and headaches. Hematological: Negative for adenopathy. Psychiatric/Behavioral: Negative for suicidal ideas, behavioral problems, self- injury and dysphoricmood. Vitals: BP 119/82 Pulse 60 Temp 37.2 C (98.9 F) (Axillary) Resp 19 Ht 5' 2 (1.575 m) Wt 165 lb (74.8 kg) SpO2 96% BMI 30.18 kg/m BMI Classification: Pulse Ox: SpO2 Av.5 % Min: 96 % Max: 98 % Supplemental O2: O2 Flow Rate (L/min): 2 L/min PHYSICAL EXAM: General appearance: No apparent distress, appears stated age and cooperative with exam. HEENT: Normal cephalic, atraumatic without obvious deformity. Pupils equal, round, and reactive to light. Extra ocular muscles intact. Conjunctivae/corneas clear. Neck: Supple, with full range of motion. No jugular venous distention. Trachea midline. No lymphadenopathy. Respiratory: Normal respiratory effort. Clear to auscultation, bilaterally without Rales/Wheezes/Rhonchi. Cardiovascular: Regular rate and rhythm with normal S1/S2 without murmurs, rubs or gallops. Abdomen: Soft, non-tender, non-distended with normal bowel sounds. No rebound or guarding. Musculoskeletal: No clubbing, cyanosis or edema bilaterally. Full range of motion without deformity, +2 peripheral pulses in all extremities. Skin: Skin color, texture, turgor normal. No rashes or lesions. Neurologic: Neurovascularly intact without any focal sensory/motor deficits. Cranial nerves: II-XIIintact, grossly non-focal. Psychiatric: Alert and oriented, thought content appropriate, normal insight. DATA: CBC: Recent Labs 08/05/23 1821 WBC 9.8 RBC 4.31 HGB 12.7 HCT 39.5 MCV 91.6 RDW 12.3 PLT 292 BMP: Recent Labs 08/05/23 1821 NA 143 K 4.0 CL 110* CO2 21* BUN 13 CREATININE 0.47* GLUCOSE 96 CALCIUM 9.4 ANIONGAP 12 LIVER PROFILE: Recent Labs 08/05/23 1821 AST 41 ALT 35* BILITOT 0.5 ALKPHOS 113 PROT 7.5 PT/INR: No results for input(s): PROTIME, INR in the last 72 hours. CARDIAC ENZYMES: No results for input(s): TROPONINI in the last 72 hours. Procalcitonin: No results found for: PROCAL Urine Culture: No results found for this or any previous visit. COVID-19 PCR: No results for input(s): COVID19 in the last 72 hours. I reviewed: [x] laboratory results [x] radiographic results At the time of today's encounter. Pt was advised of the results. IMPRESSION: Data: (CAT1) Reviewed 3 or more notes from different specialty or health system (each=1). (CAT1) Reviewed 3 or more labs/studies ordered by another provider not previously counted (each=1, panels count as 1). (CAT1) Ordered 2 new labs and/or studies (each=1, panels count as 1). (LOW: 2x CAT1 or independent historian MOD: 3x CAT1 or 1x CAT3 EXTENSIVE: 3x CAT1 and 1x CAT3) Assessment Discussed management with the ED provider and agree with hospitalization. Acute, acute on chronic, unstable/uncontrolled chronic problems/diagnoses: Seizure Intermittent abdominal pain Diarrhea Lactic acidosis CT Abd No acute abdominal or pelvic findings to explain symptoms. Acute mesenteric panniculitis. Interval 3 mm nonobstructing left renal calculus. No hydronephrosis or hydroureter. 1.5 cm mean axial pancreatic head cystic structure (was 1.1 cm in 2019) this finding may represent IPMN or pseudocyst. Stable chronic problems affecting care, new non-acute diagnoses: Asymptomatic sinus bradycardia HTN Hypothyroid GERD Plan As a result of the above findings & factors, the following mgmt was pursued: -Admit to [facility] -EEG -Seizure precaution -Keppra -NPO -IVF -GI consult ordered -Stool studies -PT/OT eval/increase activity -am labs, replace lytes prn -vitals per routine -home meds as ordered - Delirium precautions: increase activity, limit nighttime disturbances, and avoid anticholinergic meds, benzos, etc -DVT prophylaxis: [] Lovenox [] Heparin [] SCDs [x] Encourage ambulation [] Already on Anticoagulation -see below for additional orders, further recommendations to follow Orders Placed This Encounter Procedures CT head wo IV contrast CT abdomen pelvis w contrast CBC auto differential Comprehensive metabolic panel Lactic acid with reflex Complete Urinalysis with reflex to Culture Complete Urinalysis Lactic acid with reflex Lactic acid with reflex Drug screen panel, emergency Nursing communication Please do Home medication reconciliation Inpatient consult to Gastroenterology--[facility] Inpatient consult to Neurology--[facility] POCT glucose meter ECG 12 lead EEG Admit to inpatient Code status: Full Anticipated Discharge - Date - TBD - Location - TBD - Pending the following - Labs/Images/Hospital course/PT OT evaluation Total time spent (which include face to face and non face to face encounters) : 55 minutes. Toxic drug monitoring/narrow therapeutic index drug monitoring : # Drug name : # Route administered : oral # Method of monitoring : Labs Extended Emergency Contact Information Primary Emergency Contact: Jaylyn Aranda Relation: Spouse Secondary Emergency Contact: Vinicio Aranda Relation: Son Please forward a copy of this H&P to the patient's PCP. Thank you. Electronically signed by Yany Kang MD at 8:09 PM documented in this [facility]06-05-2024 Emergency department Note* Shonna Pham RN - 08/05/2023 8:05 PM EDT [place] placed to collect urine sample Shonna Pham RN 08/05/232004 [facility]* Zahida Rosas RN - 08/05/2023 7:24 PM EDT Shift change report to JADON Kilpatrick RN 08/05/231923 [id number] Note* Janki oJse RN - 08/05/2023 7:02 PM EDT Report to [place] [facility]. Janki Jose RN 08/05/23 [address] [id number] Emergency department Note* Zahida Rosas RN - 08/05/2023 7:00 PM EDT Report from JADON Shearer - seizure pads placed on bed, pt resting comfortably, denies needs at his time. Zahida Rosas RN 08/05/23 190 [id number] Emergency department Note* Janki Jose RN - 08/05/2023 6:49 PM EDT Lactic acid 4.1, Dr. Calabrese notified. Janki Jose RN 08/05/23 190 [id number] Emergency department Note* Janki Jose RN - 08/05/2023 6:19 PM EDT Pt alert and answering questions appropriately at this time. Janki Jose RN 08/05/23 181 [id number] Emergency department Note* Janki Jose RN - 08/05/2023 6:14 PM EDT 4 mg IV ativan given per Dr. Calabrese at this time. Janki Jose RN 08/05/231814 [address]2024 Emergency department Note* Janki Jose RN - 08/05/2023 6:11 PM EDT Pt appears to be having seizure like activity at this time. Pt to room 60, Dr. Marrero, Dr. MofZahida bapitste RN and Denis MENEZES at bedside upon pt arrival. Janki Jose RN 08/05/23 1830 [id number] Physician Emergency department Note* Mandy Calabrese MD - 08/05/2023 6:11 PM EDT Emergency Department Encounter [facility] EMERGENCY DEPT Patient: Ayala Aranda : 1965 Date of Evaluation: 08/05/2023 ED Supervising Physician: Madny Calabrese MD I personally evaluated Ayala Aranda and made/approved the management plan and take responsibilityfor the patient management. This will serve as my Supervisory note and shared attestation. I did perform a substantive portion of the visit including all aspects of the Medical Decision Making. I wore appropriate PPE for the entirety of this encounter. In brief, Ayala Aranda is a 58 y.o. that presents to the emergency department for altered mental status and concern for seizure-like activity. Per EMS report she has been having some weakness sinceyesterday and has not only been eating or drinking anything. When they arrived family stated that she had been seizing for about 10 minutes. They gave her 10 mg of intranasal Versed which did seem to stop her seizure-like activity however it restarted before she returned to baseline. Patient is unable provide history at this time as she is actively having seizure-like activity. Focused exam: Patient actively seizing with generalized tonic-clonic movements in the exam room. Eyes are clenched shut and unable to fully open them. Abdomen is soft and nontender to palpation. There is no obvious signs of trauma or injury to the extremities. Brief ED course/MDM: 50-year-old female to emergency room today for concern for seizure-like activity. Upon arrival to the emergency department she came into our resuscitation bay. I evaluated her medial upon arrival. She was generalized tonic-clonic movements. She is not tachycardic or hypoxic so there is concern that maybe these are pseudoseizures or nonepileptic seizures. When her arm was placed above her head she was able to move it out of the way of her face so that it would not hit her however when noxious stimuli was done with saline into her eye she did not have any reaction. Given this there is concern that may be this is an epileptic seizure. She is no history of a seizure in the past. I did give her 4 mg of Ativan which did seem to stop the seizure-like activity. About 2 to 3 minutes later she was now alert and oriented x 3. She did not seem to have any kind of confusion or postictal state which makes me less likely to think that this is an epileptic seizure. States that she just has not been feeling very well and having some abdominal pain. Denies any seizure history. Denies any falls without injury. We did get a CT scan of her head to rule out intracranial processes that could lead to seizures including mass or bleed. She has no focal neurologic deficits. She is an NIH of 0 on my exam. I reviewed the CT scan of her head my interpretation is that it is unremarkable. CT scan of her abdomen shows some panniculitis. She has no significant leukocytosis. Her lactic wasmildly elevated at 4 and then down trended to 0.8 after getting fluid resuscitated. Given the concern for seizure she will be admitted for further management of her care. Admitted to the medical service for further management. Admitted in stable condition. Diagnostics interpreted by me: CT head I personally discussed the patient's management with other clinicians: All diagnostic, treatment, and disposition decisions were made by myself in conjunction with the Resident. I also supervised shcrader portions of any procedures performed by the Resident. For all further details of the patient's emergency department visit, please see their documentation. (Comment: Please note this report has been produced using speech recognition software and may contain errors related to that system including errors in grammar, punctuation, and spelling, as well as words and phrases that may be inappropriate. If there are any questions or concerns please feel freeto contact the dictating provider for clarification.) Mandy Calabrese MD Acute Care [facility] Mandy Calabrese MD 08/05/232056 [employer] Phone: [phone] 975-249505-03-2024 Note. MICRO - Microbiology PROCEDURE: Urine Culture [*1] SOURCE: Urine, Clean Catch BODY SITE: COLLECTED DATE/TIME: 07/02/2023 11:09 EDT RECEIVED DATE/TIME: 07/02/2023 14:59 EDT START DATE/TIME: 07/02/2023 14:59 EDT FREE TEXT SOURCE: FINAL REPORTS Final Report [] Verified Date/Time/Personnel: 07/03/2023 14:16 EDT 10,000 - 50,000 cfu/ml Multiple bacterial morphotypes present. Probable Contamination. Suggest recollection if clinically indicated. Performing Locations *1: This test was performed at: [facility], [address] [place] [address], [facility] , [facility])06-17-2023 Note ORIGINAL EXAMINATION: MRCP 06/17/2023 8:10 am TECHNIQUE: After initial T2 axial and coronal images, thick slab, thin slab and 3D coronal MRCP sequences were obtained without the administration of intravenous contrast. MIP images are provided for review. COMPARISON: CT abdomen pelvis 04/02/2023, MRCP 04/24/2022, CT abdomen pelvis 03/30/2020, MRI abdomen 04/11/2020 HISTORY: ORDERING SYSTEM PROVIDED HISTORY: Reason for Exam: follow up pancreatic cyst FINDINGS: There is a simple appearing T2 hyperintense cystic pancreatic head lesion which measures about 1.8 x 1.4 cm (image 19 of series 5). There is no soft tissue component or septation. The lesion is overall not significantly different from the comparison MRI dated 04/11/2020. The there is no definite continuity between the lesion and pancreatic duct. The pancreatic duct is not dilated. There are no other cystic pancreatic lesions. Findings compatible with pancreas divisum. No intrahepatic or extrahepatic biliary ductal dilatation. Incidental right posterior sectoral duct. The gallbladder surgically absent. There are numerous bilateral parapelvic cysts. IMPRESSION: Stable 1.8 cm simple appearing cystic pancreatic head lesion, most likely representing a benign or low-grade cystic neoplasm. There are no suspicious features. Given the stability since 2020, a follow-up MRCP in 2-3 years is recommended. Pancreas divisum. I have personally reviewed the images of this examination and agree with the resident's findings and interpretation. Interpreted by: Emma Corea MD Preliminary Report By: Tika Monroeally signed By Emma Corea MD Dictated Date: 06/17/2023 8:51:03 AM Prelim Date: 06/17/2023 11:46:23 AM Sign Date: 06/17/2023 11:46:23 AM Ordering Provider: [facility]04-09-2024 Telephone encounter Note* Telephone Encounter - Navya Trejo - 06/09/2023 7:47 AM EDT Name of caller: Ayala Contact phone number: [phone] Relationship to Patient: patient Provider: last seen Yasir Practice: [facility] Chief Complaint/Reason for Call: Unable to make apt today at 8am. has the car. Mixed up that she had to come to apt for the machine, thought it was coming to the house. Able to come in later today or tomorrow. Will await return call to [facility] apt. Patient advised that office/PCP has 24-48 business hours to return their call: Yes [facility] [id number] Miscellaneous Notes* Telephone Encounter - Navya Trejo - 06/09/2023 7:47 AM EDT Name of caller: Ayala Contact phone number: [phone] Relationship to Patient: patient Provider: last seen Yasir Practice: [facility] Chief Complaint/Reason for Call: Unable to make apt today at 8am. has the car. Mixed up that she had to come to apt for the machine, thought it was coming to the house. Able to come in later today or tomorrow. Will await return call to [facility] apt. Patient advised that office/PCP has 24-48 business hours to return their call: Yes documented in this encounterSCleveland Clinic Mercy [id number] History of Present illness Narrative* Marry Cooley, ELVIS - SANGEETA - 05/27/2023 10:30 AM EDT Images from the original note were not included. [facility] [address] [address] Dept: [phone] Dept Visit type: Established : 1965 Reason for Visit: Dizziness (A little) Assessment and Plan Syncope and collapse Tingling of face -No recurrent syncope since discharge. Numbness and tingling of face persists. She will follow up with neurology as scheduled. Hydration and slow position changes.Will obtain labs for reversible causes. Will obtain event monitor to screen for further cardiac screening. - Cardiac event monitor (30 days) - Magnesium CAD dx by CT Coronary CT:Mild nonobstructive coronary atherosclerosis. The coronary calcium score is 76 (Agatston method). Hyperlipidemia -Stable. Continue ASA. Statin on hold due to concerns with memory while on this as well as Musculoskeletal pain. She will follow up with neurology. Would need alternative statin vs PCSK9i in the future. Concern statin contributed to recent complaints. Essential hypertension -Controlled. Continue losartan Concern for log COVID -Continue to monitor Follow up for Follow up with Dr. Almazan 8 weeks . Subjective HPI Ayala Denisse Norma is a 58 year old female seen today for hospital follow up. She has history hypertension, hyperlipidemia, bariatric surgery 2020 (roughly 150 lb wt loss). She also has familiy history of premature heart disease in both parents Patient recently hospitalized at [facility] due to syncopal episodes. She reports recent illness a few months prior as well as medications changes where she was started on high intensity statin and Zoloft was added. Shortly after those changes she noticed intermittent disorientation/confusion She felt like she could not think straight and also had trouble with memory and had syncopal event. Episode of syncope witnessed by EMS. Cardiology was consulted and felt symptoms sounded more neurological. Whilehospitalized there was complaint of intermittent precordial and substernal chest burning. She denied any previous anginal symptoms. Given her risk factors a coronary CT angiogram to rule out plaque disease and calcifications was ordered and revealed Mild nonobstructive coronary atherosclerosis. Thecoronary calcium score is 76 (Agatston method). Concern for long COVID though she was not tested for COVID. Statin was stopped. CT head unremarkable. Echo with EF 59%. No significant valve disease. Presents today feeling ok. She continues with low energy. No recurrent syncopal episodes since discharge. She has facial tingling and feels face is numb in certain areas. This has been ongoing since prior hospitalization. She tells me she had a home visit nurse and was told Bp was low but cannot recall actual reading. Overall she feels memory issues have improved somewhat since stopping statin. Musculoskeletal pain has also improved since stopping statin. She continues with intermittent SOB with exertion. She reports lightheadedness and dizziness with quick position changes. She has rare palpitations. She has no chest pain, orthopnea or PND. She lives at home with and children. Does not work. She has neurology follow up on 06/01 Review of Systems Constitutional: Positive for fatigue. Negative for activity change, chills, diaphoresis and fever. HENT: Negative for nosebleeds and trouble swallowing. Eyes: Negative for discharge and visual disturbance. Respiratory: Positive for shortness of breath (with exertion at times). Negative for apnea, cough, chest tightness and wheezing. Cardiovascular: Positive for palpitations (at times. once in a blue escalante). Negative for chest pain and leg swelling. Gastrointestinal: Negative for abdominal distention, abdominal pain, blood in stool, diarrhea, nausea and vomiting. Endocrine: Negative for cold intolerance and heat intolerance. Genitourinary: Negative for hematuria. Musculoskeletal: Positive for arthralgias (has improved with stopping statin). Negative for gait problem and myalgias. Skin: Negative for color change and rash. Neurological: Positive for dizziness (with quick position changes), syncope (none since discharge),light-headedness (with quick position change) and numbness (face). Negative for seizures, facial asymmetry, speech difficulty, weakness and headaches. Tingling to face Hematological: Bruises/bleeds easily. Psychiatric/Behavioral: Negative for dysphoric mood. Allergies Allergen Reactions Diphenhydramine Morphine Vancomycin Outpatient Medications Prior to Visit Medication Sig Dispense Refill aspirin 81 MG EC tablet Take 1 tablet (81 mg) by mouth daily. 30 tablet 11 Biotin 5 MG tablet dispersible Take 5,000 mcg by mouth in the morning. cholecalciferol (Vitamin D-3) 50 MCG (2000 UT) capsule Take 2,000 Units by mouth in the morning. cyanocobalamin (Vitamin B-12) 1000 MCG tablet Take 1,000 mcg by mouth in the morning. Docusate Sodium (DSS) 100 MG capsule Take 100 mg by mouth daily. ferrous sulfate 325 (65 Fe) MG tablet Take 325 mg by mouth daily (with breakfast). levothyroxine (Tirosint) 100 MCG capsule Take 100 mcg by mouth every morning (before breakfast). losartan (Cozaar) 50 MG tablet Take 1 tablet (50 mg) by mouth daily. Do not start before May 20, 2023. 30 tablet 11 sertraline (Zoloft) 100 MG tablet Take 100 mg by mouth daily. rosuvastatin (Crestor) 20 MG tablet Take 20 mg by mouth daily. No facility-administered medications prior to visit. 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 Depression Difficult intravenous access Diverticulitis Fatigue Fibromyalgia GERD (gastroesophageal reflux disease) Headache History of blood transfusion HTN (hypertension) Hyperlipidemia Hypothyroidism Intestinal malabsorption 02/16/2018 Joint pain Morbid obesity (HCC) Nausea Type 2 diabetes mellitus without complication (CMS/HCC) (HCC) since gastric not on meds Social History Tobacco Use Smoking status: Never Smokeless tobacco: Never Substance Use Topics Alcohol use: No Alcohol/week: 0.0 standard drinks of alcohol Past Surgical History: Procedure Laterality Date BACK SURGERY 2003 CHOLECYSTECTOMY 2003 COLECTOMY 03/14/2014 repair serosal tear small bowel, resection rectosigmoid, Low Anterior anastomosis. COLONOSCOPY 04/2018 CYSTOSCOPY 03/17/2014 DR Luo. bilat urerteral stent placement. GASTRIC BYPASS 02/12/2018 LRYGB- Dr. Gomez [facility] HERNIA REPAIR 01/21/2019 Dr. Riley - [facility] General Surgery-retrorectus ventral repair w mesh. exp lap, BABATUNDE. HYSTERECTOMY 2007 low transverse INCISIONAL HERNIA REPAIR 02/03/2012 excision of syntheti mesh and use of Strattice with component separation. INCISIONAL HERNIA REPAIR 09/09/2011 [place] NECK SURGERY 2002 OTHER SURGICAL HISTORY 11/03/2019 panniculectomy with vac prevena placement UPPER GASTROINTESTINAL ENDOSCOPY 06/16/2017 PRE-OP PATRICIA UPPER GASTROINTESTINAL ENDOSCOPY 04/06/2018 Family History Problem Relation Name Age of Onset Hypertension Brother Heart disease Mother Hyperlipidemia Mother COPD Mother Bleeding Prob Mother Diabetes Mother Heart disease Father Hypertension Paternal Grandmother Hypertension Mother Colon cancer Neg Hx Diabetes Paternal Grandfather Hypertension Paternal Grandfather Objective Vitals: 05/27/23 1038 BP: 114/70 BP Location: Right arm Patient Position: Sitting BP Cuff Size: Adult Pulse: 61 Resp: 18 SpO2: 97% Weight: 175 lb 6.4 oz (79.6 kg) Height: 5' (1.524 m) Physical Exam Constitutional: Appearance: Normal appearance. HENT: Head: Atraumatic. Mouth/Throat: Mouth: Mucous membranes are moist. Eyes: General: Right eye: No discharge. Left eye: No discharge. Cardiovascular: Rate and Rhythm: Regular rhythm. Bradycardia present. Pulses: Normal pulses. Pulmonary: Effort: Pulmonary effort is normal. Breath sounds: Normal breath sounds. Abdominal: General: There is no distension. Palpations: Abdomen is soft. Tenderness: There is no abdominal tenderness. There is no guarding. Musculoskeletal: Right lower leg: No edema. Left lower leg: No edema. Skin: General: Skin is warm and dry. Capillary Refill: Capillary refill takes less than 2 seconds. Neurological: Mental Status: She is alert and oriented to person, place, and time. Mental status is at baseline. Sensory: Sensory deficit (reports decreased sensation to face) present. Psychiatric: Mood and Affect: Mood normal. Behavior: Behavior normal. Data Reviewed and Summarized EF BP Date Value Ref Range Status 05/18/2023 59 55 - 100 % Final Review of tests/labs done Lab Results Component Value Date WBC 8.3 05/17/2023 HGB 11.3 (L) 05/17/2023 HCT 33.4 (L) 05/17/2023 MCV 89.1 05/17/2023 PLT 243 05/17/2023 Lab Results Component Value Date GLUCOSE 91 05/17/2023 CALCIUM 8.6 05/17/2023 NA 139 05/17/2023 K 3.9 05/17/2023 CO2 23 05/17/2023 CL 108 (H) 05/17/2023 BUN 16 05/17/2023 CREATININE 0.36 (L) 05/17/[address] MPRESSION: Mild nonobstructive coronary atherosclerosis. The coronary calcium score is 76 (Agatston method). Normal cardiac chambers. FFR-CT OPTION: FFR-CT is not requested for this study. CAD-RADS 2 / P1 Recommendation: Preventive pharmacotherapy and risk factor modification. Consider non-atherosclerotic causes of symptoms. Echo 05/16/2023 Interpretation Summary Left Ventricle: Left ventricle size is normal. Normal wall thickness. Normal left ventricular systolic function. EF by 2D Simpsons Biplane is 59%. Normal wall motion. Right Ventricle: Right ventricle size is normal. Normal systolic function. Tricuspid Valve: Normal RVSP. RVSP is 21 mmHg. Left Atrium: Left atrium is mildly dilated. Left atrium size is mildly increased (LA volume index 35-41 mL/m2).LA Vol Index A/L is 37 mL/m2. No significant valvular abnormalities. ELVIS Lai CNP documented in this [facility]2024 History of Present illness Narrative* ELVIS Lai CNP - 05/27/2023 10:30 AM EDT Images from the original note were not included. [facility] [address] [facility] [id number] Dept: [phone] Dept Visit type: Established : 1965 Reason for Visit: Dizziness (A little) Assessment and Plan Syncope and collapse Tingling of face -No recurrent syncope since discharge. Numbness and tingling of face persists. She will follow up with neurology as scheduled. Hydration and slow position changes.Will obtain labs for reversible causes. Will obtain event monitor to screen for further cardiac screening. - Cardiac event monitor (30 days) - Magnesium CAD dx by CT Coronary CT:Mild nonobstructive coronary atherosclerosis. The coronary calcium score is 76 (Agatston method). Hyperlipidemia -Stable. Continue ASA. Statin on hold due to concerns with memory while on this as well as Musculoskeletal pain. She will follow up with neurology. Would need alternative statin vs PCSK9i in the future. Concern statin contributed to recent complaints. Essential hypertension -Controlled. Continue losartan Concern for log COVID -Continue to monitor Follow up for Follow up with Dr. Almazan 8 weeks . Subjective HPI Ayala Aranda is a 58 year old female seen today for hospital follow up. She has history hypertension, hyperlipidemia, bariatric surgery 2019 (roughly 150 lb wt loss). She also has familiy history of premature heart disease in both parents Patient recently hospitalized at [facility] due to syncopal episodes. She reports recent illness a few months prior as well as medications changes where she was started on high intensity statin and Zoloft was added. Shortly after those changes she noticed intermittent disorientation/confusion She felt like she could not think straight and also had trouble with memory and had syncopal event. Episode of syncope witnessed by EMS. Cardiology was consulted and felt symptoms sounded more neurological. Whilehospitalized there was complaint of intermittent precordial and substernal chest burning. She denied any previous anginal symptoms. Given her risk factors a coronary CT angiogram to rule out plaque disease and calcifications was ordered and revealed Mild nonobstructive coronary atherosclerosis. Thecoronary calcium score is 76 (Agatston method). Concern for long COVID though she was not tested for COVID. Statin was stopped. CT head unremarkable. Echo with EF 59%. No significant valve disease. Presents today feeling ok. She continues with low energy. No recurrent syncopal episodes since discharge. She has facial tingling and feels face is numb in certain areas. This has been ongoing since prior hospitalization. She tells me she had a home visit nurse and was told Bp was low but cannot recall actual reading. Overall she feels memory issues have improved somewhat since stopping statin. Musculoskeletal pain has also improved since stopping statin. She continues with intermittent SOB with exertion. She reports lightheadedness and dizziness with quick position changes. She has rare palpitations. She has no chest pain, orthopnea or PND. She lives at home with and children. Does not work. She has neurology follow up on 06/01 Review of Systems Constitutional: Positive for fatigue. Negative for activity change, chills, diaphoresis and fever. HENT: Negative for nosebleeds and trouble swallowing. Eyes: Negative for discharge and visual disturbance. Respiratory: Positive for shortness of breath (with exertion at times). Negative for apnea, cough, chest tightness and wheezing. Cardiovascular: Positive for palpitations (at times. once in a blue escalante). Negative for chest pain and leg swelling. Gastrointestinal: Negative for abdominal distention, abdominal pain, blood in stool, diarrhea, nausea and vomiting. Endocrine: Negative for cold intolerance and heat intolerance. Genitourinary: Negative for hematuria. Musculoskeletal: Positive for arthralgias (has improved with stopping statin). Negative for gait problem and myalgias. Skin: Negative for color change and rash. Neurological: Positive for dizziness (with quick position changes), syncope (none since discharge),light-headedness (with quick position change) and numbness (face). Negative for seizures, facial asymmetry, speech difficulty, weakness and headaches. Tingling to face Hematological: Bruises/bleeds easily. Psychiatric/Behavioral: Negative for dysphoric mood. Allergies Allergen Reactions Diphenhydramine Morphine Vancomycin Outpatient Medications Prior to Visit Medication Sig Dispense Refill aspirin 81 MG EC tablet Take 1 tablet (81 mg) by mouth daily. 30 tablet 11 Biotin 5 MG tablet dispersible Take 5,000 mcg by mouth in the morning. cholecalciferol (Vitamin D-3) 50 MCG (2000 UT) capsule Take 2,000 Units by mouth in the morning. cyanocobalamin (Vitamin B-12) 1000 MCG tablet Take 1,000 mcg by mouth in the morning. Docusate Sodium (DSS) 100 MG capsule Take 100 mg by mouth daily. ferrous sulfate 325 (65 Fe) MG tablet Take 325 mg by mouth daily (with breakfast). levothyroxine (Tirosint) 100 MCG capsule Take 100 mcg by mouth every morning (before breakfast). losartan (Cozaar) 50 MG tablet Take 1 tablet (50 mg) by mouth daily. Do not start before May 20, 2023. 30 tablet 11 sertraline (Zoloft) 100 MG tablet Take 100 mg by mouth daily. rosuvastatin (Crestor) 20 MG tablet Take 20 mg by mouth daily. No facility-administered medications prior to visit. 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 Depression Difficult intravenous access Diverticulitis Fatigue Fibromyalgia GERD (gastroesophageal reflux disease) Headache History of blood transfusion HTN (hypertension) Hyperlipidemia Hypothyroidism Intestinal malabsorption 02/16/2018 Joint pain Morbid obesity (HCC) Nausea Type 2 diabetes mellitus without complication (CMS/HCC) (HCC) since gastric not on meds Social History Tobacco Use Smoking status: Never Smokeless tobacco: Never Substance Use Topics Alcohol use: No Alcohol/week: 0.0 standard drinks of alcohol Past Surgical History: Procedure Laterality Date BACK SURGERY 2002 CHOLECYSTECTOMY 2002 COLECTOMY 03/14/2014 repair serosal tear small bowel, resection rectosigmoid, Low Anterior anastomosis. COLONOSCOPY 04/2018 CYSTOSCOPY 03/17/2014 DR Luo. bilat urerteral stent placement. GASTRIC BYPASS 02/12/2018 LRYGB- Dr. Gomez [facility] HERNIA REPAIR 01/21/2019 Dr. Riley - [facility] General Surgery-retrorectus ventral repair w mesh. exp lap, BABATUNDE. HYSTERECTOMY 2008 low transverse INCISIONAL HERNIA REPAIR 02/03/2012 excision of syntheti mesh and use of Strattice with component separation. INCISIONAL HERNIA REPAIR 09/09/2011 [place] NECK SURGERY 2002 OTHER SURGICAL HISTORY 11/03/2019 panniculectomy with vac prevena placement UPPER GASTROINTESTINAL ENDOSCOPY 06/16/2017 PRE-OP PATRICIA UPPER GASTROINTESTINAL ENDOSCOPY 04/06/2018 Family History Problem Relation Name Age of Onset Hypertension Brother Heart disease Mother Hyperlipidemia Mother COPD Mother Bleeding Prob Mother Diabetes Mother Heart disease Father Hypertension Paternal Grandmother Hypertension Mother Colon cancer Neg Hx Diabetes Paternal Grandfather Hypertension Paternal Grandfather Objective Vitals: 05/27/23 1038 BP: 114/70 BP Location: Right arm Patient Position: Sitting BP Cuff Size: Adult Pulse: 61 Resp: 18 SpO2: 97% Weight: 175 lb 6.4 oz (79.6 kg) Height: 5' (1.524 m) Physical Exam Constitutional: Appearance: Normal appearance. HENT: Head: Atraumatic. Mouth/Throat: Mouth: Mucous membranes are moist. Eyes: General: Right eye: No discharge. Left eye: No discharge. Cardiovascular: Rate and Rhythm: Regular rhythm. Bradycardia present. Pulses: Normal pulses. Pulmonary: Effort: Pulmonary effort is normal. Breath sounds: Normal breath sounds. Abdominal: General: There is no distension. Palpations: Abdomen is soft. Tenderness: There is no abdominal tenderness. There is no guarding. Musculoskeletal: Right lower leg: No edema. Left lower leg: No edema. Skin: General: Skin is warm and dry. Capillary Refill: Capillary refill takes less than 2 seconds. Neurological: Mental Status: She is alert and oriented to person, place, and time. Mental status is at baseline. Sensory: Sensory deficit (reports decreased sensation to face) present. Psychiatric: Mood and Affect: Mood normal. Behavior: Behavior normal. Data Reviewed and Summarized EF BP Date Value Ref Range Status 05/18/2023 59 55 - 100 % Final Review of tests/labs done Lab Results Component Value Date WBC 8.3 05/17/2023 HGB 11.3 (L) 05/17/2023 HCT 33.4 (L) 05/17/2023 MCV 89.1 05/17/2023 PLT 243 05/17/2023 Lab Results Component Value Date GLUCOSE 91 05/17/2023 CALCIUM 8.6 05/17/2023 NA 139 05/17/2023 K 3.9 05/17/2023 CO2 23 05/17/2023 CL 108 (H) 05/17/2023 BUN 16 05/17/2023 CREATININE 0.36 (L) 05/17/[address] MPRESSION: Mild nonobstructive coronary atherosclerosis. The coronary calcium score is 76 (Agatston method). Normal cardiac chambers. FFR-CT OPTION: FFR-CT is not requested for this study. CAD-RADS 2 / P1 Recommendation: Preventive pharmacotherapy and risk factor modification. Consider non-atherosclerotic causes of symptoms. Echo 05/16/2023 Interpretation Summary Left Ventricle: Left ventricle size is normal. Normal wall thickness. Normal left ventricular systolic function. EF by 2D Simpsons Biplane is 59%. Normal wall motion. Right Ventricle: Right ventricle size is normal. Normal systolic function. Tricuspid Valve: Normal RVSP. RVSP is 21 mmHg. Left Atrium: Left atrium is mildly dilated. Left atrium size is mildly increased (LA volume index 35-41 mL/m2).LA Vol Index A/L is 37 mL/m2. No significant valvular abnormalities. ELVIS Lai CNP documented in this [facility]2024 Instructions* Patient Instructions* ELVIS Lai CNP - 05/27/2023 10:30 AM EDT Omron upper arm blood pressure cuff. This is the recommended brand Please begin taking blood pressures at home daily -Prior to checking blood pressure sit and rest quietly for 5 minutes. Sit with feet flat on the ground and back against chair. -take blood pressure 1-2 hours after medications or if symptoms -Keep BP log with date time and heart rate -Bring machine and log to next -Call office if concerns. documented in this [facility]2024 Instructions* Patient Instructions* ELVIS Lai CNP - 05/27/2023 10:30 AM EDT Omron upper arm blood pressure cuff. This is the recommended brand Please begin taking blood pressures at home daily -Prior to checking blood pressure sit and rest quietly for 5 minutes. Sit with feet flat on the ground and back against chair. -take blood pressure 1-2 hours after medications or if symptoms -Keep BP log with date time and heart rate -Bring machine and log to next -Call office if concerns. documented in this [facility]2024 Miscellaneous Notes* Addendum Note - Waleska Salcedo - 05/27/2023 10:30 AM EDTAddended by: WALESKA SALCEDO on: 06/12/2023 02:16 PM Modules accepted: Orders documented in this [facility]2024 Note* Addendum Note - Waleska Salcedo - 05/27/2023 10:30 AM EDTAddended by: WALESKA SALCEDO on: 06/12/2023 02:16 PM Modules accepted: Orders [facility] [id number] NoteAddended by: WALESKA SALCEDO on: 06/12/2023 02:16 PM Modules accepted: [facility]03-19-2024 Telephone encounter Note* Telephone Encounter - Sarah Jose - 05/19/2023 2:49 PM EDT 05/26 at 10:30am with SO only appt we had left patient is aware and is fine with that [id number] Miscellaneous Notes* Telephone Encounter - Sarah Garcia - 05/19/2023 2:49 PM EDT 05/26 at 10:30am with SO only appt we had left patient is aware and is fine with that * Telephone Encounter - ELVIS White CNP - 05/19/2023 2:34 PM EDT Please contact pt to arrange hospital follow-up in 2-[address] Tomas or his VAN. Thanks documented in this encounterSC[facility] Mercy [id number] Telephone encounter Note* Telephone Encounter - ELVIS White CNP - 05/19/2023 2:34 PM EDT Please contact pt to arrange hospital follow-up in 2-[address] Tomas or his VAN. Thanks [facility] [id number] Nurse Note* Miriam Bean LPN - 05/19/2023 2:16 PM EDT Discharge instructions reviewed with patient. No questions at this time. Ivs taken out and pt is off of monitor. Pt taken down to discharge. [facility] [id number] Nurse Note* Miriam Bean LPN - 05/19/2023 2:16 PM EDT Discharge instructions reviewed with patient. No questions at this time. Ivs taken out and pt is off of monitor. Pt taken down to discharge. documented in this [facility]03-19-2024 NoteHospitalist Discharge Summary Ayala Aranda : 1965 Admit date: 05/16/2023 Discharge date: 05/19/2023 Admitting Physician: Rigoberto Elliott MD Primary Care Physician: Emma Harmon DO Visit Status: Inpatient Code Status: Full Code Acute, acute on chronic, unstable/uncontrolled chronic problems/discharge diagnoses: Syncope - likely orthostatic hypotension in the setting of stress, dehydration Asymptomatic sinus bradycardia Stable chronic problems affecting care, new non-acute discharge diagnoses: HTN Hypothyroid GERD Past Medical History: Diagnosis Date Abdominal pain Anxiety Arthritis Cancer (CMS/HCC) uterine Cellulitis Chronic back pain DDD (degenerative disc disease), cervical 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 female with past medical history below who presented to ED with EMS for syncope. When they arrived, she was talking, reported feeling nauseous, and had some facial tingling. She subsequently had an episode of unresponsiveness that lasted 3 minutes. She reports feeling unwell for approximately 3 weeks. She reports that she has had forgetfulness. She states that the first episode happened after getting up from bed, and she walked to the kitchen where she passed out and states when EMS got there, her second episode happened after EMS got her up from the ground. Also patient mentioned that that she has been going through a lot of stress at home lately and also states she was not hydrating well. Pt was admitted and noted to be bradycardic so cardiology was consulted. She remained asymptomatic with no neuro deficits. Echo was unremarkable. No events on tele. CT head unremarkable. Labs unremarkable. Cardiology did not believe syncopal episodes to be cardiac related and likely was orthostatic in nature. Pt eager to go home and was educated on orthostatic precautions and told to return if symptoms recur. Pt will follow up with her PCP after discharge. See discharge diagnoses list above and medication adjustments below in med rec.The patient is discharged in improved and stable condition. Consults: IP CONSULT TO CARDIOLOGY Discharge Instructions: Diet: Dietary Orders (From admission, onward) Start Ordered 05/17/23 1551 Adult diet Regular Diet effective now Question: Diet type Answer: Regular 05/17/23 1551 Activity: as tolerated Recommended Outpatient Tests: Disposition: Patient discharged in stable condition to Home. Greater than 50 minutes spent discharging the patient and coming up with patient discharge plan. Vitals: BP 125/68 (BP Location: Left arm, Patient Position: Sitting) Pulse 61 Temp 36.3 ?C (97.3 ?F) (Temporal) Resp 16 Ht 5' (1.524 m) Wt 170 lb (77.1 kg) SpO2 94% BMI 33.20 kg/m? Pulse Ox: SpO2 Av.7 % Min: 94 % Max: 98 % Supplemental O2: GENERAL: Lying in bed comfortably, awake and alert HEENT: normocephalic, non-traumatic, MMM NECK: supple, trachea midline HEART: RRR, normal S1 and S2 LUNGS: good breath sounds bilaterally, no wheeze, no rhonchi, no rales ABD: soft, non-tender, no rebound, no guarding, +BS MSK: no edema noted SKIN: warm, dry NEURO: no focal deficits PSYCH: appropriate affect LABS: Recent Labs 05/16/23205005/17/23 0309 NA 139 139 K 4.2 3.9 CL 110* 108* CO2 22 23 BUN 20* 16 CREATININE 0.47* 0.36* GLUCOSE 101* 91 CALCIUM 8.5 8.6 Recent Labs 05/16/23205005/17/23 0309 WBC 9.6 8.3 RBC 3.77* 3.75* HGB 11.4* 11.3* HCT 33.9* 33.4* MCV 89.9 89.1 MCH 30.2 30.1 MCHC 33.6 33.8 RDW 13.0 13.2 PLT 254 243 MPV 10.5 10.8 Discharge Medications: Medication List START taking these medications aspirin 81 MG EC tablet Take 1 tablet (81 mg) by mouth daily. CHANGE how you take these medications losartan 50 MG tablet Commonly known as: Cozaar Take 1 tablet (50 mg) by mouth daily. Start taking on: May 20, 2023 What changed: medication strength how much to take when to take this CONTINUE taking these medications Biotin 5 MG tablet dispersible cholecalciferol 50 MCG (1999 UT) capsule Commonly known as: Vitamin D-3 cyanocobalamin 1000 MCG tablet Commonly known as: Vitamin B-12 DSS 100 MG capsule ferrous sulfate 325 (65 Fe) MG tablet levothyroxine 100 MCG capsule Commonly known as: Tirosint rosuvastatin 20 MG tablet Commonly known as: Crestor sertraline 100 MG tablet Commonly known as: Zoloft Where to Get Your Medications These medications were sent to [facility] [employer] (more content not included)... [facility] [id number] Hospital course Narrative* Aakash Granado DO - 05/19/2023 1:11 PM EDT Images from the original note were not included. Hospitalist Discharge Summary Ayala Aranda : 1965 Admit date: 05/16/2023 Discharge date: 05/19/2023 Admitting Physician: Rigoberto Elliott MD Primary Care Physician: Emma Harmon DO Visit Status: Inpatient Code Status: Full Code Acute, acute on chronic, unstable/uncontrolled chronic problems/discharge diagnoses: Syncope - likely orthostatic hypotension in the setting of stress, dehydration Asymptomatic sinus bradycardia Stable chronic problems affecting care, new non-acute discharge diagnoses: HTN Hypothyroid GERD Past Medical History: Diagnosis Date Abdominal pain Anxiety Arthritis Cancer (CMS/HCC) uterine Cellulitis Chronic back pain DDD (degenerative disc disease), cervical 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 female with past medical history below who presented to ED with EMS for syncope. When they arrived, she was talking, reported feeling nauseous, and had some facial tingling. She subsequently had an episode of unresponsiveness that lasted 3 minutes. She reports feeling unwell for approximately 3 weeks. She reports that she has had forgetfulness. She states that the first episode happened after getting up from bed, and she walked to the kitchen where she passed out and states when EMS gotthere, her second episode happened after EMS got her up from the ground. Also patient mentioned that that she has been going through a lot of stress at home lately and also states she was not hydrating well. Pt was admitted and noted to be bradycardic so cardiology was consulted. She remained asymptomatic with no neuro deficits. Echo was unremarkable. No events on tele. CT head unremarkable. Labsunremarkable. Cardiology did not believe syncopal episodes to be cardiac related and likely was orthostatic in nature. Pt eager to go home and was educated on orthostatic precautions and told to return if symptoms recur. Pt will follow up with her PCP after discharge. See discharge diagnoses list above and medication adjustments below in med rec.The patient is discharged in improved and stable condition. Consults: IP CONSULT TO CARDIOLOGY Discharge Instructions: Diet: Dietary Orders (From admission, onward) Start Ordered 05/17/23 1551 Adult diet Regular Diet effective now Question: Diet type Answer: Regular 05/17/23 1551 Activity: as tolerated Recommended Outpatient Tests: Disposition: Patient discharged in stable condition to Home. Greater than 50 minutes spent discharging the patient and coming up with patient discharge plan. Vitals: BP 125/68 (BP Location: Left arm, Patient Position: Sitting) Pulse 61 Temp 36.3 C (97.3F) (Temporal) Resp 16 Ht 5' (1.524 m) Wt 170 lb (77.1 kg) SpO2 94% BMI 33.20 kg/m Pulse Ox: SpO2 Av.7 % Min: 94 % Max: 98 % Supplemental O2: GENERAL: Lying in bed comfortably, awake and alert HEENT: normocephalic, non-traumatic, MMM NECK: supple, trachea midline HEART: RRR, normal S1 and S2 LUNGS: good breath sounds bilaterally, no wheeze, no rhonchi, no rales ABD: soft, non-tender, no rebound, no guarding, +BS MSK: no edema noted SKIN: warm, dry NEURO: no focal deficits PSYCH: appropriate affect LABS: Recent Labs 05/16/23205005/17/23 0309 NA 139 139 K 4.2 3.9 CL 110* 108* CO2 22 23 BUN 20* 16 CREATININE 0.47* 0.36* GLUCOSE 101* 91 CALCIUM 8.5 8.6 Recent Labs 05/16/23205005/17/23 0309 WBC 9.6 8.3 RBC 3.77* 3.75* HGB 11.4* 11.3* HCT 33.9* 33.4* MCV 89.9 89.1 MCH 30.2 30.1 MCHC 33.6 33.8 RDW 13.0 13.2 PLT 254 243 MPV 10.5 10.8 Discharge Medications: Medication List START taking these medications aspirin 81 MG EC tablet Take 1 tablet (81 mg) by mouth daily. CHANGE how you take these medications losartan 50 MG tablet Commonly known as: Cozaar Take 1 tablet (50 mg) by mouth daily. Start taking on: May 20, 2023 What changed: medication strength how much to take when to take this CONTINUE taking these medications Biotin 5 MG tablet dispersible cholecalciferol 50 MCG (2000 UT) capsule Commonly known as: Vitamin D-3 cyanocobalamin 1000 MCG tablet Commonly known as: Vitamin B-12 DSS 100 MG capsule ferrous sulfate 325 (65 Fe) MG tablet levothyroxine 100 MCG capsule Commonly known as: Tirosint rosuvastatin 20 MG tablet Commonly known as: Crestor sertraline 100 MG tablet Commonly known as: Zoloft Where to Get Your Medications [facility] - [facility] AT Portal to Registered [facility] Sites [facility], [place] [address] aspirin 81 MG EC tablet losartan 50 MG tablet Recommended Follow-up: No follow-up provider specified. Complexity of Follow up: [] Moderate Complexity: follow up within 7-14 calendar days (03885) [x] Severe Complexity: follow up within 7 calendar days (12532) Follow up Testing, Pending results or Referrals at Transitional Care Visit: [x] yes [] no Instructions to MA: Please call patient on day after discharge (must document patient contacted within 2 business days of discharge). Follow up questions for MA: 1. Did you get medications filled and taking them as instructed from discharge? 2. Are you following your discharge instructions from your hospital stay? 3. Please confirm patient is scheduled for a follow up appointment within the above time frame. Signed: Aakash Granado DO Division of Hospitalist Medicine [facility] 05/19/2023, 1:11 PM documented in this [facility]03-19-2024 Note* Care Coordination - SOFIA Saenz - 05/19/2023 12:57 PM EDT Patient declined absentee ballot for voting today. [facility] [id number] Note* Care Coordination - SOFIA Saenz - 05/19/2023 12:57 PM EDT Patient declined absentee ballot for voting today. [facility] [id number] Miscellaneous Notes* Care Coordination - SOFIA Saenz - 05/19/2023 12:57 PM EDT Patient declined absentee ballot for voting today. * Care Coordination - Maureen López RN - 05/19/2023 11:42 AM EDT TCC spoke with pt in regards to her stay here at [facility] being out of network. Pt called her insurance and verified that [facility] is in network. Apparently this hospital stay is being billed under her secondary insurance and needs to be billed to her primary insurance-[employer]. LEAH notified . Pt's insurance has been updated. Pt will not need to be moved to another facility. TCC to follow and assist as needed. * Perioperative Nursing Note - Sveta Kwon RN - 05/19/2023 9:29 AM EDT Patient arrived to CT for CTA of coronary arteries. CT imaging and nitroglycerin administration explained. Patient conveys understanding and agrees to proceed. Baseline HR , BP . Nitroglycerin administered per protocol. CT imaging completed. Repeat BP , HR . Denies dizziness or lightheadedness. Patient assisted to sitting position, denies dizziness or lightheadedness. Discharge instructions provided. Patient conveys understanding. 1 bottle of water given. Ambulated from CT with steady gait. Patient returned to [address] [place] [address] via patient transport. * Care Plan - Ramu York Jr., RN - 05/18/2023 9:17 PM EDT Problem: Pain - Adult Goal: Verbalizes/displays adequate comfort level or baseline comfort level Outcome: Progressing Problem: Safety - Adult Goal: Free from fall injury Outcome: Progressing Problem: Chronic Conditions and Co-morbidities Goal: Patient's chronic conditions and co-morbidity symptoms are monitored and maintained or improved Outcome: Progressing * Care Coordination - Zahida Salazar RN - 05/18/2023 1:15 PM EDT Made aware by PRICE RN that This patient's insurance plan is out of network with [facility]. Please notify the patient and the provider so that she can be transferred to an in-network facility when stable. MD Haydee added to conversation, no response yet. * Care Coordination - Zahida Salazar RN - 05/18/2023 12:53 PM EDT Care Managment Initial Assessment Date: 05/18/2023 Patient Name: Ayala Aranda : 1965 Patient Information Source of Information: Patient Cognition/Language: WFL - Within Functional Limits Permission given to speak with patient reimbursement representative/caregiver as indicated: Confirmation of Payer with patient/family: Yes Payer Name: caresource : No Confirmation of Primary Care Physician: Confirmed PCP Name: DO Eden Seen in last 2 years?: Yes Primary Caregiver: Self If assistance needed, confirmed caregiver ready, willing and able to care for patient at discharge:Yes () Confirmed with: patient Living Arrangements Current Residence: House Number of Floors 1 Number of Entry Steps: 2 Bed/Bath Levels: Both first floor Facility: Facility Name: Plan to Return: Lives with: Spouse/significant other, Children Support Systems: Spouse/significant other, Children, Family members Activities of Daily Living Ambulation: Independent Bathing/Dressing: Independent Elimination/Continence/Toileting: Independent Feeding: Independent Who Assists with Activities of Daily Living: Instrumental Activities of Daily Living Prescription Coverage: Yes Pharmacy Used: [facility] Medication Management: Independent Transportation/Shopping: Independent Transportation Mode: Car Needs Assistance with Transportation at Discharge: No Meal Preparation: Independent Laundry/Cleaning: Independent Finances/Bill Paying: Independent Communication: Independent Types of Care Services/Equipment Utilized Care Services: Dialysis Type: NA Durable Medical Equipment: DME Provider: none Patient's Goal/Discharge Plan Patient expects to be discharged to: home Discharge Planning Actions: Continue to follow, No needs identified Patient's Choice Rights and [employer] and Collaborative Relationships Disclosed as Indicated for Post-Acute Care: Interdisciplinary Team Engagement: Social Work Referral for: Additional Information: Met with patient at bedside. Patient is admitted to for syncope and unresponsive episode lasting3 minutes. Patient came to [facility] via EMS. Patient denies DME needs, denies TCC needs, patient is independent at home. TCC to follow. Zahida Salazar RN * Care Plan - Althea Potts RN - 05/18/2023 3:20 AM EDT Problem: Pain - Adult Goal: Verbalizes/displays adequate comfort level or baseline comfort level Outcome: Progressing Problem: Safety - Adult Goal: Free from fall injury Outcome: Progressing Problem: Chronic Conditions and Co-morbidities Goal: Patient's chronic conditions and co-morbidity symptoms are monitored and maintained or improved Outcome: Progressing documented in this [facility]03-19-2024 Note* Care Coordination - Maureen López RN - 05/19/2023 11:42 AM EDT TCC spoke with pt in regards to her stay here at [facility] being out of network. Pt called her insurance and verified that [facility] is in network. Apparently this hospital stay is being billed under her secondary insurance and needs to be billed to her primary insurance-[employer]. TCC notified [facility]. Pt's insurance has been updated. Pt will not need to be moved to another facility. TCC to follow and assist as needed. [facility] [id number] Note* Care Coordination - Maureen López RN - 05/19/2023 11:42 AM EDT TCC spoke with pt in regards to her stay here at [facility] being out of network. Pt called her insurance and verified that [facility] is in network. Apparently this hospital stay is being billed under her secondary insurance and needs to be billed to her primary insurance-[employer]. TCC notified [facility]. Pt's insurance has been updated. Pt will not need to be moved to another facility. TCC to follow and assist as needed. [facility]03-19-2024 Note* Perioperative Nursing Note - Sveta Kwon RN - 05/19/2023 9:29 AM EDT Patient arrived to CT for CTA of coronary arteries. CT imaging and nitroglycerin administration explained. Patient conveys understanding and agrees to proceed. Baseline HR , BP . Nitroglycerin administered per protocol. CT imaging completed. Repeat BP , HR . Denies dizziness or lightheadedness. Patient assisted to sitting position, denies dizziness or lightheadedness. Discharge instructions provided. Patient conveys understanding. 1 bottle of water given. Ambulated from CT with steady gait. Patient returned to [facility] via patient transport. [facility]03-19-2024 Note* Perioperative Nursing Note - Sveta Kwon RN - 05/19/2023 9:29 AM EDT Patient arrived to CT for CTA of coronary arteries. CT imaging and nitroglycerin administration explained. Patient conveys understanding and agrees to proceed. Baseline HR , BP . Nitroglycerin administered per protocol. CT imaging completed. Repeat BP , HR . Denies dizziness or lightheadedness. Patient assisted to sitting position, denies dizziness or lightheadedness. Discharge instructions provided. Patient conveys understanding. 1 bottle of water given. Ambulated from CT with steady gait. Patient returned to [facility] via patient transport. [place] [id number] [facility] [place] [facility] Cardiology /Electrophysiology Progress Note Reason for consult: Syncope/lightheadedness/fatigue Primary licensed midwife: None HPI / Interval History: Ayala Aranda is a 58 y.o. female with past medical history of hypertension, hyperlipidemia, premature heart disease in both parents, depression, hypothyroidism, migraines and iron deficiency anemia. Underwent gastric bypass surgery in 2019 and lost up to 150 pounds. 3 months ago she had a potential viral illness including body aches, headaches, fever, and mild temporary loss of smell/taste but did not get tested. Few weeks ago she saw her PCP and was started on Crestor 20 mg daily and Zoloft. Eventually her Zoloft dose was increased to 100 mg daily. She states her son was in a tragic accident resulting in TBI last year and this required placed to senior living which has been very stressful. Following medication changes she became fatigued with episodes of forgetfulness, disorientation, and inability to speak. On 1 occasion she was seated trying to speak but was unable to for 45 minutes. 05/15 she was sitting at the kitchen table and her found her slumped over for approximately 3 minutes. She states that has been noted that she was singh with a weak pulse. She did not require CPR. EMS was called and upon arrival she was nauseated with right-sided facial tingling. She had another episode of syncope witnessed by EMS. She slowly came to. She did not have a witnessed seizure activity. EKG demonstrated signs bradycardia with heart rate in the low 50s but no AV block. Labs remarkable for hemoglobin 11.3 and elevated BUN of 20.. CT head negative for acute changes but showed mild chronic small vessel ischemic changes. She is presently laying in bed resting. Her chief complaint is a mild frontal headache for which she was given Tylenol as well as feeling tired. The frontal headache is different from her typical migraines. She also reports intermittent blurred vision. She reports occasional twinges of left-sided chest pain at rest which subsides without intervention. She denies shortness of breath, palpitations, dizziness or lightheadedness, or edema. Due to her son being placed in a senior living, she has been under a significant amount of stress this past year. Assessment/Plan Syncope: Witnessed. Suspect neurological event. CT head negative for acute changes but showed mild chronic small vessel ischemic changes. TTE with normal LVEF and no significant valvular disease. IVC normal. Serial troponins negative. Mild normocytic anemia, hemoglobin 11.3 and on ferrous sulfate. Her heart rate runs low normal but no episodes of AV block/pauses or arrhythmia. Avoid AV janes blockers. Highly advise neurological consultation for further workup. Chest discomfort: Stable. She has mild intermittent chest discomfort. Given episode of syncope and risk factors for coronary artery disease, coronary CTA was ordered to rule out obstructive disease. Recommendations to follow. Mental status changes: Unclear if brain fog related to prior infectious process versus medication induced from recent Zoloft initiation and higher dosage of Crestor. She may have had COVID resulting in some chronic fatigue/long-haul COVID symptoms. It is possible statin therapy because of the event. Please continue to hold Crestor until she receives further neurological evaluation and pending coronary CTA results. If neurological workup is negative, would benefit from referral to the COVID-19 clinic. Possible dehydration: Blood urea nitrogen initially elevated at 20 with normal creatinine. Currently receiving IV fluids. Creatinine has returned to normal. Will discuss with . Please see addendum for additional recommendations. Addendum: Coronary CTA shows Mild nonobstructive coronary atherosclerosis with coronary calcium score is 76. Add ASA. With regards to statin therapy, her crestor is held but may be resumed (hydrophobic statin preferred). Randomized trials of lovastatin and simvastatin have shown some evidence of minor decrements in cognitive function as measured by neuropsychological testing. Would avoid lipophilic statins such as simvastatin, lovastatin, atorvastatin, and fluvastatin. Updated Dr. Tomas. He does not recommend 30 day event monitor at this time. Will sign off and arrange follow-up. Current Medications: cholecalciferol, 2,000 Units, Oral, Daily cyanocobalamin, 1,000 mcg, Oral, Daily docusate sodium, 100 mg, Oral, Daily enoxaparin, 40 mg, SubCUTAneous, Daily ferrous sulfate, 325 mg, Oral, Daily with breakfast levothyroxine, 100 mcg, Oral, qAM AC losartan, 50 mg, Oral, Daily sertraline, 100 mg, Oral, Daily Current Infusion Medications: sodium chloride, 100 mL/hr, Last Rate: 100 mL/hr (05/19/23 0148) Home medications: Current Outpatient Medications Medication Instructions Biotin (more content not included)...[facility]03-19-2024 History of Present illness Narrative* Mary Cramer, COPYMAN - SCHEDULE ANALYST - 05/19/2023 9:14 AM EDT [facility] [place] [facility] Cardiology /Electrophysiology Progress Note Reason for consult: Syncope/lightheadedness/fatigue Primary licensed midwife: None HPI / Interval History: Ayala Aranda is a 58 y.o. female with past medical history of hypertension, hyperlipidemia, premature heart disease in both parents, depression, hypothyroidism, migraines and iron deficiency anemia. Underwent gastric bypass surgery in 2019 and lost up to 150 pounds. 3 months ago she had a potential viral illness including body aches, headaches, fever, and mild temporary loss of smell/taste but did not get tested. Few weeks ago she saw her PCP and was started on Crestor 20 mg daily and Zoloft. Eventually her Zoloft dose was increased to 100 mg daily. She statesher son was in a tragic accident resulting in TBI last year and this required placed to senior living which has been very stressful. Following medication changes she became fatigued with episodes of forgetfulness, disorientation, and inability to speak. On 1 occasion she was seated trying to speak but was unable to for 45 minutes. 05/15 she was sitting at the kitchen table and her found her slumped over for approximately 3 minutes. She states that has been noted that she was singh with a weak pulse. She did not require CPR. EMS was called and upon arrival she was nauseated with right-sided facial tingling. She had another episode of syncope witnessed by EMS. She slowly came to. She didnot have a witnessed seizure activity. EKG demonstrated signs bradycardia with heart rate in the low 50s but no AV block. Labs remarkable for hemoglobin 11.3 and elevated BUN of 20.. CT head negative for acute changes but showed mild chronic small vessel ischemic changes. She is presently laying in bed resting. Her chief complaint is a mild frontal headache for which she was given Tylenol as well as feeling tired. The frontal headache is different from her typical migraines. She also reports intermittent blurred vision. She reports occasional twinges of left-sidedchest pain at rest which subsides without intervention. She denies shortness of breath, palpitations, dizziness or lightheadedness, or edema. Due to her son being placed in a senior living, she has been under a significant amount of stress this past year. Assessment/Plan Syncope: Witnessed. Suspect neurological event. CT head negative for acute changes but showed mild chronic small vessel ischemic changes. TTE with normal LVEF and no significant valvular disease. IVCnormal. Serial troponins negative. Mild normocytic anemia, hemoglobin 11.3 and on ferrous sulfate. Her heart rate runs low normal but no episodes of AV block/pauses or arrhythmia. Avoid AV janes blockers. Highly advise neurological consultation for further workup. Chest discomfort: Stable. She has mild intermittent chest discomfort. Given episode of syncope and risk factors for coronary artery disease, coronary CTA was ordered to rule out obstructive disease. Recommendations to follow. Mental status changes: Unclear if brain fog related to prior infectious process versus medication induced from recent Zoloft initiation and higher dosage of Crestor. She may have had COVID resulting in some chronic fatigue/long-haul COVID symptoms. It is possible statin therapy because of the event. Please continue to hold Crestor until she receives further neurological evaluation and pending coronary CTA results. If neurological workup is negative, would benefit from referral to the COVID-19 clinic. Possible dehydration: Blood urea nitrogen initially elevated at 20 with normal creatinine. Currently receiving IV fluids. Creatinine has returned to normal. Will discuss with . Please see addendum for additional recommendations. Addendum: Coronary CTA shows Mild nonobstructive coronary atherosclerosis with coronary calcium score is 76. Add ASA. With regards to statin therapy, her crestor is held but may be resumed (hydrophobic statin preferred). Randomized trials of lovastatin and simvastatin have shown some evidence of minor decrements in cognitive function as measured by neuropsychological testing. Would avoid lipophilic statins such as simvastatin, lovastatin, atorvastatin, and fluvastatin. Updated Dr. Tomas. He does not recommend 30 day event monitor at this time. Will sign off andarrange follow-up. Current Medications: cholecalciferol, 2,000 Units, Oral, Daily cyanocobalamin, 1,000 mcg, Oral, Daily docusate sodium, 100 mg, Oral, Daily enoxaparin, 40 mg, SubCUTAneous, Daily ferrous sulfate, 325 mg, Oral, Daily with breakfast levothyroxine, 100 mcg, Oral, qAM AC losartan, 50 mg, Oral, Daily sertraline, 100 mg, Oral, Daily Current Infusion Medications: sodium chloride, 100 mL/hr, Last Rate: 100 mL/hr (05/19/23 0148) Home medications: Current Outpatient Medications Medication Instructions Biotin 5,000 mcg, Oral, Daily cholecalciferol (VITAMIN D-3) 2,000 Units, Oral, Daily cyanocobalamin (VITAMIN B-12) 1,000 mcg, Oral, Daily DSS 100 mg, Oral, Daily ferrous sulfate 325 mg, Oral, Daily with breakfast levothyroxine (TIROSINT) 100 mcg, Oral, Daily before breakfast losartan (COZAAR) 25 mg, Oral, Every 24 hours rosuvastatin (CRESTOR) 20 mg, Oral, Daily sertraline (ZOLOFT) 100 mg, Oral, Daily Physical Examination: Vitals: 05/18/23 2309 05/19/23 0000 05/19/23 0331 05/19/23 0731 BP: 140/77 116/61 127/61 BP Location: Right arm Left arm Left arm Patient Position: Lying Lying Sitting Pulse: 54 52 59 53 Resp: Temp: (!) 35.8 C (96.4 F) 36.3 C (97.3 F) 36.2 C (97.2 F) TempSrc: Temporal Temporal Temporal SpO2: 95% 96% 97% Weight: Height: No intake or output data in the 24 hours ending 05/19/23 0914 Wt Readings from Last 3 Encounters: 05/18/23 170 lb (77.1 kg) 08/17/19 155 lb 9.6 oz (70.6 kg) 04/14/19 160 lb (72.6 kg) Physical Exam Vitals and nursing note reviewed. Constitutional: General: She is not in acute distress. Appearance: Normal appearance. She is not ill-appearing, toxic-appearing or diaphoretic. HENT: Head: Normocephalic and atraumatic. Nose: Nose normal. Neck: Vascular: No JVD. Cardiovascular: Rate and Rhythm: Normal rate and regular rhythm. Pulses: Carotid pulses are 2+ on the right side and 2+ on the left side. Radial pulses are 2+ on the right side and 2+ on the left side. Popliteal pulses are 2+ on the right side and 2+ on the left side. Dorsalis pedis pulses are 2+ on the right side and 2+ on the left side. Heart sounds: Normal heart sounds. No murmur heard. No friction rub. No gallop. Pulmonary: Effort: Pulmonary effort is normal. No respiratory distress. Breath sounds: Normal breath sounds. No wheezing, rhonchi or rales. Chest: Chest wall: No tenderness. Abdominal: General: Bowel sounds are normal. There is no distension. Palpations: Abdomen is soft. There is no mass. Tenderness: There is no abdominal tenderness. Musculoskeletal: General: No swelling or deformity. Cervical back: Normal range of motion and neck supple. Right lower leg: No edema. Left lower leg: No edema. Skin: General: Skin is warm and dry. Capillary Refill: Capillary refill takes less than 2 seconds. Findings: No rash. Neurological: General: No focal deficit present. Mental Status: She is alert and oriented to person, place, and time. Mental status is at baseline. Motor: No weakness. Gait: Gait normal. Psychiatric: Mood and Affect: Mood normal. Behavior: Behavior normal. Thought Content: Thought content normal. Judgment: Judgment normal. Laboratory Tests: Recent Labs 05/16/23205005/17/23 0309 NA 139 139 K 4.2 3.9 CL 110* 108* CO2 22 23 BUN 20* 16 CREATININE 0.47* 0.36* Recent Labs 05/16/23205005/17/23 0309 WBC 9.6 8.3 HGB 11.4* 11.3* HCT 33.9* 33.4* MCV 89.9 89.1 PLT 254 243 Recent Labs 05/16/23205005/17/23 0019 05/17/23 0309 05/18/23 1440 05/18/23 1945 TROPONINI <0.012 <0.012 <0.012 <0.012 0.016 No results for input(s): BNP in the last 72 hours. No results for input(s): TRIG, HDL, LDLCALC, CHOL in the last 72 hours. No results found for: LDLCHOLESTER Lab Results Component Value Date TSH 2.677 05/16/2023 No results found for: HGBA1C Lab Results Component Value Date AST 36 08/16/2019 ALKPHOS 96 08/16/2019 BILITOT 0.8 08/16/2019 EF BP Date Value Ref Range Status 05/18/2023 59 55 - 100 % Final Cardiac Tests: Last EC05/18/2023-sinus rate cardiac, heart rate 53 bpm Last echocardiogram: TRANSTHORACIC ECHOCARDIOGRAM (TTE) COMPLETE (CONTRAST/BUBBLE/3D PRN) 05/18/2023 1:26 PM (Final) Interpretation Summary Left Ventricle: Left ventricle size is normal. Normal wall thickness. Normal left ventricular systolic function. EF by 2D Simpsons Biplane is 59%. Normal wall motion. Right Ventricle: Right ventricle size is normal. Normal systolic function. Tricuspid Valve: Normal RVSP. RVSP is 21 mmHg. Left Atrium: Left atrium is mildly dilated. Left atrium size is mildly increased (LA volume index 35-41 mL/m2).LA Vol Index A/L is 37 mL/m2. No significant valvular abnormalities. Signed by: Reji Medellin MD on 05/18/2023 1:26 PM Telemetry findings reviewed: During nocturnal hours, sinus bradycardia, heart rate low 50s. While awake, heart rate 53-high 50s. ELVIS White CNP Date Of Service 05/19/2023 * Rigoberto Elliott MD - 05/18/2023 7:05 PM EDT Images from the original note were not included. Hospitalist Progress Note 05/18/2023 Subjective: Admit Date: 05/16/2023 PCP: Emma Harmon DO Room#: 1C-[id number] A Brief Hospital course: 58 y.o. female with past medical history below who presented to ED with EMS for syncope. When they arrived, she was talking, reported feeling nauseous, and had some facial tingling. She subsequently had an episode of unresponsiveness that lasted 3 minutes. She reports feeling unwell for approximately 3 weeks. She reports that she has had forgetfulness. Also patient mentioned that that she has been going through a lot of stress at home lately. Interval History: Patient is a sitting on the bed, headache improved still complaining of some on and off tingling episodes on her face. Denies any dizziness or lightheadedness. 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 Depression Difficult intravenous access Diverticulitis Fatigue Fibromyalgia GERD (gastroesophageal reflux disease) Headache History of blood transfusion HTN (hypertension) Hyperlipidemia Hypothyroidism Intestinal malabsorption 02/16/2018 Joint pain Morbid obesity (CMS/HCC) Nausea Type 2 diabetes mellitus without complication (CMS/HCC) since gastric not on meds LABS: CBC: Recent Labs 05/16/23205005/17/23 0309 WBC 9.6 8.3 RBC 3.77* 3.75* HGB 11.4* 11.3* HCT 33.9* 33.4* MCV 89.9 89.1 RDW 13.0 13.2 PLT 254 243 BMP: Recent Labs 05/16/23205005/17/23 0309 NA 139 139 K 4.2 3.9 CL 110* 108* CO2 22 23 BUN 20* 16 CREATININE 0.47* 0.36* GLUCOSE 101* 91 CALCIUM 8.5 8.6 ANIONGAP 7 8 LIVER PROFILE:No results for input(s): AST, ALT, BILITOT, ALKPHOS, PROT in the last 72 hours. No lab exists for component: LABALBU PT/INR: No results for input(s): PROTIME, INR in the last 72 hours. CARDIAC ENZYMES: Recent Labs 05/17/23 0019 05/17/23 0309 05/18/23 1440 TROPONINI <0.012 <0.012 <0.012 Procalcitonin: No results found for: PROCAL COVID-19 PCR: No results for input(s): COVID19 in the last 72 hours. Objective: Vitals: BP 128/73 (BP Location: Right arm, Patient Position: Standing) Pulse 72 Temp 37 C (98.6F) (Temporal) Resp 16 Ht 5' (1.524 m) Wt 170 lb (77.1 kg) SpO2 96% BMI 33.20 kg/m Pulse Ox: SpO2 Av % Min: 93 % Max: 96 % Supplemental O2: Physical Exam General: No distress Neck: Supple. HEENT: Normocephalic atraumatic pupils equal react light Heart: S1-S2 heard no murmurs gallops regurgitation Lungs: Clear to auscultation bilaterally no wheezing rales rhonchi. Abdomen: Nondistended nontender bowel sounds are present Neuro: No focal deficits. Medications: Scheduled PRN cholecalciferol, 2,000 Units, Oral, Daily cyanocobalamin, 1,000 mcg, Oral, Daily docusate sodium, 100 mg, Oral, Daily enoxaparin, 40 mg, SubCUTAneous, Daily ferrous sulfate, 325 mg, Oral, Daily with breakfast [START ON 05/19/2023] levothyroxine, 100 mcg, Oral, qAM AC losartan, 50 mg, Oral, Daily sertraline, 100 mg, Oral, Daily PRN medications: acetaminophen OR acetaminophen, naloxone, perflutren protein A microsphere (Optison) 3 mL in sodium chloride (PF) 0.9 % 10 mL IV syringe, polyethylene glycol (PEG) 3350, traMADol Continuous sodium chloride, 100 mL/hr, Last Rate: 100 mL/hr (05/17/23 1147) Assessment Syncopal episode. Sinus bradycardia. Intractable headache. History of: Hypothyroidism Obesity-s/p bariatric surgery in 2019 Gastroesophageal reflux disease. Plan Currently patient is lying on the bed, denies any dizziness or lightheadedness. Headache is improving-continuing current pain medications Denies any nausea or vomitings, tolerating p.o. diet well. Given her episode of bradycardia in the setting of syncope Cardiology evaluated the patient, recommending coronary CT [id number] on the results Echocardiogram results are pending Electrolytes reviewed and within normal limits. Vitals are stable. Home medications reviewed and resumed appropriately. PT OT evaluation - am labs, replace lytes prn - PT/OT/CM/SW - delirium precautions: increase activity, limit nighttime disturbances, and avoid anticholinergic meds, benzos, etc - DVT prophylaxis: enoxaparin and encourage ambulation Advance Directive: Full Code Anticipated Discharge - Date - 1-2 days - Location - Home - Pending the following - clinical improvement Total time spent (which include face to face and non face to face encounters) : 35 minutes Extended Emergency Contact Information Primary Emergency Contact: Jaylyn Aranda Relation: Spouse Secondary Emergency Contact: Vinicio Aranda Relation: Cornelius Elliott MD Division of Hospitalist Medicine Acute [facility] * Madison Broderick - 05/18/2023 7:57 AM EDT Nutrition rescreen completed. Chart reviewed. Patient to be monitored and followed by the diet laboratory technician. * Rigoberto Elliott MD - 05/17/2023 6:49 PM EDT Images from the original note were not included. Hospitalist Progress Note 05/17/2023 Subjective: Admit Date: 05/16/2023 PCP: Emma Harmon DO Room#: -133/-133 A Brief Hospital course: 58 y.o. female with past medical history below who presented to ED with EMS for syncope. When they arrived, she was talking, reported feeling nauseous, and had some facial tingling. She subsequently had an episode of unresponsiveness that lasted 3 minutes. She reports feeling unwell for approximately 3 weeks. She reports that she has had forgetfulness. Also patient mentioned that that she has been going through a lot of stress at home lately. Interval History: Patient is lying on the bed, headache and tingling on her face better compared to before. Requesting stronger pain medications Tolerating p.o. diet well, denies any nausea or vomitings Denies any dizziness or lightheadedness. Denies any upper or lower extremity weakness. 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/2018 Depression Difficult intravenous access Diverticulitis Fatigue Fibromyalgia GERD (gastroesophageal reflux disease) Headache History of blood transfusion HTN (hypertension) Hyperlipidemia Hypothyroidism Intestinal malabsorption 02/16/2018 Joint pain Morbid obesity (CMS/HCC) Nausea Type 2 diabetes mellitus without complication (CMS/HCC) since gastric not on meds LABS: CBC: Recent Labs 05/16/23205005/17/23 0309 WBC 9.6 8.3 RBC 3.77* 3.75* HGB 11.4* 11.3* HCT 33.9* 33.4* MCV 89.9 89.1 RDW 13.0 13.2 PLT 254 243 BMP: Recent Labs 05/16/23205005/17/23 0309 NA 139 139 K 4.2 3.9 CL 110* 108* CO2 22 23 BUN 20* 16 CREATININE 0.47* 0.36* GLUCOSE 101* 91 CALCIUM 8.5 8.6 ANIONGAP 7 8 LIVER PROFILE:No results for input(s): AST, ALT, BILITOT, ALKPHOS, PROT in the last 72 hours. No lab exists for component: LABALBU PT/INR: No results for input(s): PROTIME, INR in the last 72 hours. CARDIAC ENZYMES: Recent Labs 05/16/23205005/17/23 0019 05/17/23 0309 TROPONINI <0.012 <0.012 <0.012 Procalcitonin: No results found for: PROCAL COVID-19 PCR: No results for input(s): COVID19 in the last 72 hours. Objective: Vitals: BP 133/83 Pulse 51 Temp 36.8 C (98.2 F) (Temporal) Resp 21 Ht 5' (1.524 m) Wt 170lb (77.1 kg) SpO2 97% BMI 33.20 kg/m Pulse Ox: SpO2 Av.6 % Min: 92 % Max: 99 % Supplemental O2: Physical Exam General: No distress Neck: Supple. HEENT: Normocephalic atraumatic pupils equal react light Heart: S1-S2 heard no murmurs gallops regurgitation Lungs: Clear to auscultation bilaterally no wheezing rales rhonchi. Abdomen: Nondistended nontender bowel sounds are present Neuro: No focal deficits. Medications: Scheduled PRN cholecalciferol, 2,000 Units, Oral, Daily cyanocobalamin, 1,000 mcg, Oral, Daily enoxaparin, 40 mg, SubCUTAneous, Daily ferrous sulfate, 325 mg, Oral, Daily with breakfast levothyroxine, 88 mcg, Oral, qAM AC losartan, 50 mg, Oral, Daily PRN medications: acetaminophen OR acetaminophen, naloxone, perflutren protein A microsphere (Optison) 3 mL in sodium chloride (PF) 0.9 % 10 mL IV syringe, polyethylene glycol (PEG) 3350, traMADol Continuous sodium chloride, 100 mL/hr, Last Rate: 100 mL/hr (05/17/23 1147) Assessment Syncopal episode. Sinus bradycardia. Intractable headache. History of: Hypothyroidism Obesity-s/p bariatric surgery in 2019 Gastroesophageal reflux disease. Plan Currently patient is lying on the bed, denies any dizziness or lightheadedness. Still having some headache but better compared to admission. Pain medications are helping, requesting stronger pain meds. Denies any nausea or vomitings, tolerating p.o. diet well. Given her episode of bradycardia in the setting of syncope, cardiology consult placed. Will follow-up on the recommendations. Electrolytes reviewed and within normal limits. Vitals are stable. Home medications reviewed and resumed appropriately. PT OT evaluation - am labs, replace lytes prn - PT/OT/CM/SW - delirium precautions: increase activity, limit nighttime disturbances, and avoid anticholinergic meds, benzos, etc - DVT prophylaxis: enoxaparin and encourage ambulation Advance Directive: Full Code Anticipated Discharge - Date - 1-2 days - Location - Home - Pending the following - clinical improvement Total time spent (which include face to face and non face to face encounters) : 35 minutes Extended Emergency Contact Information Primary Emergency Contact: Jaylyn Aranda Relation: Spouse Secondary Emergency Contact: NormaVinicio Relation: Cornelius Rigoberto Elliott MD Division of Hospitalist Medicine [facility] documented in this [facility]03-18-2024 Plan of care note* Care Plan - Ramu York Jr., RN - 05/18/2023 9:17 PM EDT Problem: Pain - Adult Goal: Verbalizes/displays adequate comfort level or baseline comfort level Outcome: Progressing Problem: Safety - Adult Goal: Free from fall injury Outcome: Progressing Problem: Chronic Conditions and Co-morbidities Goal: Patient's chronic conditions and co-morbidity symptoms are monitored and maintained or improved Outcome: [facility]ing [id number] Progress Note 05/18/2023 Subjective: Admit Date: 05/16/2023 PCP: Emma Harmon DO Room#: -133/-133 A Brief Hospital course: 58 y.o. female with past medical history below who presented to ED with EMS for syncope. When they arrived, she was talking, reported feeling nauseous, and had some facial tingling. She subsequently had an episode of unresponsiveness that lasted 3 minutes. She reports feeling unwell for approximately 3 weeks. She reports that she has had forgetfulness. Also patient mentioned that that she has been going through a lot of stress at home lately. Interval History: Patient is a sitting on the bed, headache improved still complaining of some on and off tingling episodes on her face. Denies any dizziness or lightheadedness. 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 Depression Difficult intravenous access Diverticulitis Fatigue Fibromyalgia GERD (gastroesophageal reflux disease) Headache History of blood transfusion HTN (hypertension) Hyperlipidemia Hypothyroidism Intestinal malabsorption 02/16/2018 Joint pain Morbid obesity (CMS/HCC) Nausea Type 2 diabetes mellitus without complication (CMS/HCC) since gastric not on meds LABS: CBC: Recent Labs 05/16/23205005/17/23 0309 WBC 9.6 8.3 RBC 3.77* 3.75* HGB 11.4* 11.3* HCT 33.9* 33.4* MCV 89.9 89.1 RDW 13.0 13.2 PLT 254 243 BMP: Recent Labs 05/16/23205005/17/23 0309 NA 139 139 K 4.2 3.9 CL 110* 108* CO2 22 23 BUN 20* 16 CREATININE 0.47* 0.36* GLUCOSE 101* 91 CALCIUM 8.5 8.6 ANIONGAP 7 8 LIVER PROFILE:No results for input(s): AST, ALT, BILITOT, ALKPHOS, PROT in the last 72 hours. No lab exists for component: LABALBU PT/INR: No results for input(s): PROTIME, INR in the last 72 hours. CARDIAC ENZYMES: Recent Labs 05/17/23 0019 05/17/23 0309 05/18/23 1440 TROPONINI <0.012 <0.012 <0.012 Procalcitonin: No results found for: PROCAL COVID-19 PCR: No results for input(s): COVID19 in the last 72 hours. Objective: Vitals: BP 128/73 (BP Location: Right arm, Patient Position: Standing) Pulse 72 Temp 37 ?C (98.6 ?F) (Temporal) Resp 16 Ht 5' (1.524 m) Wt 170 lb (77.1 kg) SpO2 96% BMI 33.20 kg/m? Pulse Ox: SpO2 Av % Min: 93 % Max: 96 % Supplemental O2: Physical Exam General: No distress Neck: Supple. HEENT: Normocephalic atraumatic pupils equal react light Heart: S1-S2 heard no murmurs gallops regurgitation Lungs: Clear to auscultation bilaterally no wheezing rales rhonchi. Abdomen: Nondistended nontender bowel sounds are present Neuro: No focal deficits. Medications: Scheduled PRN cholecalciferol, 2,000 Units, Oral, Daily cyanocobalamin, 1,000 mcg, Oral, Daily docusate sodium, 100 mg, Oral, Daily enoxaparin, 40 mg, SubCUTAneous, Daily ferrous sulfate, 325 mg, Oral, Daily with breakfast [START ON 05/19/2023] levothyroxine, 100 mcg, Oral, qAM AC losartan, 50 mg, Oral, Daily sertraline, 100 mg, Oral, Daily PRN medications: acetaminophen OR acetaminophen, naloxone, perflutren protein A microsphere (Optison) 3 mL in sodium chloride (PF) 0.9 % 10 mL IV syringe, polyethylene glycol (PEG) 3350, traMADol Continuous sodium chloride, 100 mL/hr, Last Rate: 100 mL/hr (05/17/23 1147) Assessment Syncopal episode. Sinus bradycardia. Intractable headache. History of: Hypothyroidism Obesity-s/p bariatric surgery in 2019 Gastroesophageal reflux disease. Plan Currently patient is lying on the bed, denies any dizziness or lightheadedness. Headache is improving-continuing current pain medications Denies any nausea or vomitings, tolerating p.o. diet well. Given her episode of bradycardia in the setting of syncope Cardiology evaluated the patient, recommending coronary CT [id number] on the results Echocardiogram results are pending Electrolytes reviewed and within normal limits. Vitals are stable. Home medications reviewed and resumed appropriately. PT OT evaluation - am labs, replace lytes prn - PT/OT/CM/SW - delirium precautions: increase activity, limit nighttime disturbances, and avoid anticholinergic meds, benzos, etc - DVT prophylaxis: enoxaparin and encourage ambulation Advance Directive: Full Code Anticipated Discharge - Date - 1-2 days - Location - Home - Pending the following - clinical improvement Total time spent (which include face to face and non face to face encounters) : 35 minutes Extended Emergency Contact Information Primary Marine (more content not included)...[facility]03-18-2024 Consult note* Be Tomas MD - 05/18/2023 2:33 PM EDTAssociated Order(s): IP CONSULT TO CARDIOLOGY [facility] [place] [facility] Cardiology /Electrophysiology Consult Note Reason for Consult/Chief Complaint: Syncope, lightheadedness, fatigue Referring provider: Haydee Established licensed midwife: None History of Present Illness: Ayala Aranda is a 58 y.o. female with a history of hypertension hyperlipidemia, family history ofpremature heart disease in both parents who presented with proximately 3 months of progressive fatigue and at times signs of feeling disoriented and confused and syncope at home. One of the events was witnessed by EMS. Patient has a history of bariatric surgery in 2019 and has done well since, she lost approximately 140 to 150 pounds. Approximately 3 months ago, shortly after she had what she describes as flu with bodyaches headaches, fever, possible mild temporary loss of smell and taste. Patient did not get tested for COVID or other viruses. Shortly afterwards her medications were changed, she was started on h igh intensity statin and Zoloft was added. Shortly after those changes and the above-noted event she noticed that intermittently she became disoriented or confused. She feels like she could not thinkstraight and also had trouble with memory when doing routine things. She does not smoke or drink. 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 Family history is positive for premature heart disease in both parents. Assessment/Plan HF NYHA Class [] I [] II [] III [] IV Syncope: The patient's symptoms are somewhat difficult to describe, however it appears that she had2 episodes of syncope, of which at least 1 was witnessed by EMS. It appears that she woke up slowly. She does not mention any convulsions or seizure-like symptoms being mentioned. Based on the patient's description this appears to be more consistent with neurologic problem rather than a cardiac even t. Chest pain: While hospitalized the patient notices intermittent precordial and substernal chest burning. She denies any previous anginal symptoms. Given her risk factors patient definitely will require risk stratification. I recommended a coronary CT angiogram to rule out plaque disease and calcifications. Mental status changes: Patient describes some symptoms consistent with brain fog. It is not quite clear whether the patient's symptoms started after she had an infectious process or after statin therapy was started. It is conceivable that the patient had COVID, unfortunately was not tested and now has long COVID symptoms with what is best described as a brain fog. However, it is also conceivable that his symptoms may be due to a side effect from statin therapy. Due to the latter I took the liberty to discontinue/hold rosuvastatin at least for the time being. Unfortunately the patient's symptoms are due to long COVID there is currently no proven diagnostic or therapeutic intervention available. Cardiology will follow along. Medications: cholecalciferol, 2,000 Units, Oral, Daily cyanocobalamin, 1,000 mcg, Oral, Daily docusate sodium, 100 mg, Oral, Daily enoxaparin, 40 mg, SubCUTAneous, Daily ferrous sulfate, 325 mg, Oral, Daily with breakfast [START ON 05/19/2023] levothyroxine, 100 mcg, Oral, qAM AC losartan, 50 mg, Oral, Daily sertraline, 100 mg, Oral, Daily Infusion Medications: sodium chloride, 100 mL/hr, Last Rate: 100 mL/hr (05/17/23 1147) Physical Examination: Vitals: 05/18/23 0600 05/18/23 0721 05/18/23 1040 05/18/23 1122 BP: 143/77 137/65 BP Location: Right arm Left arm Patient Position: Lying Lying Pulse: 56 (!) 49 58 Resp: 16 15 13 Temp: 37.1 C (98.8 F) 36.6 C (97.8 F) TempSrc: Temporal Temporal SpO2: 95% 96% Weight: 170 lb (77.1 kg) Height: 5' (1.524 m) No intake or output data in the 24 hours ending 05/18/23 1433 Wt Readings from Last 3 Encounters: 05/18/23 170 lb (77.1 kg) 08/17/19 155 lb 9.6 oz (70.6 kg) 04/14/19 160 lb (72.6 kg) Physical Exam Vitals reviewed. Constitutional: Appearance: Normal appearance. She is normal weight. HENT: Head: Normocephalic and atraumatic. Right Ear: External ear normal. Left Ear: External ear normal. Nose: Nose normal. Eyes: Extraocular Movements: Extraocular movements intact. Conjunctiva/sclera: Conjunctivae normal. Neck: Vascular: No carotid bruit. Cardiovascular: Rate and Rhythm: Normal rate and regular rhythm. Heart sounds: No murmur heard. No gallop. Pulmonary: Effort: Pulmonary effort is normal. Breath sounds: Normal breath sounds. No wheezing. Abdominal: General: Bowel sounds are normal. Palpations: Abdomen is soft. Musculoskeletal: General: No swelling. Normal range of motion. Cervical back: Neck supple. Right lower leg: No edema. Left lower leg: No edema. Skin: General: Skin is warm and dry. Neurological: General: No focal deficit present. Mental Status: She is alert and oriented to person, place, and time. Psychiatric: Mood and Affect: Mood normal. Behavior: Behavior normal. Laboratory Tests: Recent Labs 05/16/23205005/17/23 0309 NA 139 139 K 4.2 3.9 CL 110* 108* CO2 22 23 BUN 20* 16 CREATININE 0.47* 0.36* EGFR >90.0 >90.0 Recent Labs 05/16/23205005/17/23 0019 05/17/23 0309 TROPONINI <0.012 <0.012 <0.012 Recent Labs 05/16/23205005/17/23 0309 WBC 9.6 8.3 HGB 11.4* 11.3* HCT 33.9* 33.4* MCV 89.9 89.1 PLT 254 243 No results found for: HGBA1C Lab Results Component Value Date TSH 2.677 05/16/2023 Lab Results Component Value Date CHOL 171 08/16/2019 CHOL 131 04/13/2019 Lab Results Component Value Date HDL 61 (H) 08/16/2019 HDL 47 04/13/2019 No results found for: LDLCALC Lab Results Component Value Date TRIG 97 08/16/2019 TRIG 70 04/13/2019 No results found for: CHOLHDL No results found for: LDLCHOLESTER No results for input(s): BNP in the last 72 hours. No results for input(s): INR in the last 72 hours. Lab Results Component Value Date FERRITIN 93 08/16/2019 Radiology: CXR: personally reviewed: Cardiac Tests Personally Reviewed: Last EKG 05/16/23 ECG 12-LEAD (Preliminary) This result has not been signed. Information might be incomplete. Impression Sinus bradycardia Telemetry findings: Sinus rhythm Reports reviewed: Last Echo 05/16/23 TRANSTHORACIC ECHOCARDIOGRAM (TTE) COMPLETE (CONTRAST/BUBBLE/3D PRN) 05/18/2023 1:26 PM (Final) Interpretation Summary Left Ventricle: Left ventricle size is normal. Normal wall thickness. Normal left ventricular systolic function. EF by 2D Simpsons Biplane is 59%. Normal wall motion. Right Ventricle: Right ventricle size is normal. Normal systolic function. Tricuspid Valve: Normal RVSP. RVSP is 21 mmHg. Left Atrium: Left atrium is mildly dilated. Left atrium size is mildly increased (LA volume index 35-41 mL/m2).LA Vol Index A/L is 37 mL/m2. No significant valvular abnormalities. Signed by: Reji Medellin MD on 05/18/2023 1:26 PM Last Cath No results found for this or any previous visit. Last Stress Test No results found for this or any previous visit. Last EP study No results found for this or any previous visit. EF BP Date Value Ref Range Status 05/18/2023 59 55 - 100 % Final FARHAD SCORE: FARHAD Score Link Be Tomas MD DATE of SERVICE: 05/18/2023 [employer] Phone: [phone] 585-766203-18-2024 Consult note* Be Tomas MD - 05/18/2023 2:33 PM EDTAssociated Order(s): IP CONSULT TO CARDIOLOGY [facility] [place] [facility] Cardiology /Electrophysiology Consult Note Reason for Consult/Chief Complaint: Syncope, lightheadedness, fatigue Referring provider: Haydee Mota licensed midwife: None History of Present Illness: Ayala Aranda is a 58 y.o. female with a history of hypertension hyperlipidemia, family history ofpremature heart disease in both parents who presented with proximately 3 months of progressive fatigue and at times signs of feeling disoriented and confused and syncope at home. One of the events was witnessed by EMS. Patient has a history of bariatric surgery in 2019 and has done well since, she lost approximately 140 to 150 pounds. Approximately 3 months ago, shortly after she had what she describes as flu with bodyaches headaches, fever, possible mild temporary loss of smell and taste. Patient did not get tested for COVID or other viruses. Shortly afterwards her medications were changed, she was started on h igh intensity statin and Zoloft was added. Shortly after those changes and the above-noted event she noticed that intermittently she became disoriented or confused. She feels like she could not thinkstraight and also had trouble with memory when doing routine things. She does not smoke or drink. 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 Family history is positive for premature heart disease in both parents. Assessment/Plan HF NYHA Class [] I [] II [] III [] IV Syncope: The patient's symptoms are somewhat difficult to describe, however it appears that she had2 episodes of syncope, of which at least 1 was witnessed by EMS. It appears that she woke up slowly. She does not mention any convulsions or seizure-like symptoms being mentioned. Based on the patient's description this appears to be more consistent with neurologic problem rather than a cardiac even t. Chest pain: While hospitalized the patient notices intermittent precordial and substernal chest burning. She denies any previous anginal symptoms. Given her risk factors patient definitely will require risk stratification. I recommended a coronary CT angiogram to rule out plaque disease and calcifications. Mental status changes: Patient describes some symptoms consistent with brain fog. It is not quite clear whether the patient's symptoms started after she had an infectious process or after statin therapy was started. It is conceivable that the patient had COVID, unfortunately was not tested and now has long COVID symptoms with what is best described as a brain fog. However, it is also conceivable that his symptoms may be due to a side effect from statin therapy. Due to the latter I took the liberty to discontinue/hold rosuvastatin at least for the time being. Unfortunately the patient's symptoms are due to long COVID there is currently no proven diagnostic or therapeutic intervention available. Cardiology will follow along. Medications: cholecalciferol, 2,000 Units, Oral, Daily cyanocobalamin, 1,000 mcg, Oral, Daily docusate sodium, 100 mg, Oral, Daily enoxaparin, 40 mg, SubCUTAneous, Daily ferrous sulfate, 325 mg, Oral, Daily with breakfast [START ON 05/19/2023] levothyroxine, 100 mcg, Oral, qAM AC losartan, 50 mg, Oral, Daily sertraline, 100 mg, Oral, Daily Infusion Medications: sodium chloride, 100 mL/hr, Last Rate: 100 mL/hr (05/17/23 1147) Physical Examination: Vitals: 05/18/23 0600 05/18/23 0721 05/18/23 1040 05/18/23 1122 BP: 143/77 137/65 BP Location: Right arm Left arm Patient Position: Lying Lying Pulse: 56 (!) 49 58 Resp: 16 15 13 Temp: 37.1 C (98.8 F) 36.6 C (97.8 F) TempSrc: Temporal Temporal SpO2: 95% 96% Weight: 170 lb (77.1 kg) Height: 5' (1.524 m) No intake or output data in the 24 hours ending 05/18/23 1433 Wt Readings from Last 3 Encounters: 05/18/23 170 lb (77.1 kg) 08/17/19 155 lb 9.6 oz (70.6 kg) 04/14/19 160 lb (72.6 kg) Physical Exam Vitals reviewed. Constitutional: Appearance: Normal appearance. She is normal weight. HENT: Head: Normocephalic and atraumatic. Right Ear: External ear normal. Left Ear: External ear normal. Nose: Nose normal. Eyes: Extraocular Movements: Extraocular movements intact. Conjunctiva/sclera: Conjunctivae normal. Neck: Vascular: No carotid bruit. Cardiovascular: Rate and Rhythm: Normal rate and regular rhythm. Heart sounds: No murmur heard. No gallop. Pulmonary: Effort: Pulmonary effort is normal. Breath sounds: Normal breath sounds. No wheezing. Abdominal: General: Bowel sounds are normal. Palpations: Abdomen is soft. Musculoskeletal: General: No swelling. Normal range of motion. Cervical back: Neck supple. Right lower leg: No edema. Left lower leg: No edema. Skin: General: Skin is warm and dry. Neurological: General: No focal deficit present. Mental Status: She is alert and oriented to person, place, and time. Psychiatric: Mood and Affect: Mood normal. Behavior: Behavior normal. Laboratory Tests: Recent Labs 05/16/23205005/17/23 0309 NA 139 139 K 4.2 3.9 CL 110* 108* CO2 22 23 BUN 20* 16 CREATININE 0.47* 0.36* EGFR >90.0 >90.0 Recent Labs 05/16/23205005/17/23 0019 05/17/23 0309 TROPONINI <0.012 <0.012 <0.012 Recent Labs 05/16/23205005/17/23 0309 WBC 9.6 8.3 HGB 11.4* 11.3* HCT 33.9* 33.4* MCV 89.9 89.1 PLT 254 243 No results found for: HGBA1C Lab Results Component Value Date TSH 2.677 05/16/2023 Lab Results Component Value Date CHOL 171 08/16/2019 CHOL 131 04/13/2019 Lab Results Component Value Date HDL 61 (H) 08/16/2019 HDL 47 04/13/2019 No results found for: LDLCALC Lab Results Component Value Date TRIG 97 08/16/2019 TRIG 70 04/13/2019 No results found for: CHOLHDL No results found for: LDLCHOLESTER No results for input(s): BNP in the last 72 hours. No results for input(s): INR in the last 72 hours. Lab Results Component Value Date FERRITIN 93 08/16/2019 Radiology: CXR: personally reviewed: Cardiac Tests Personally Reviewed: Last EKG 05/16/23 ECG 12-LEAD (Preliminary) This result has not been signed. Information might be incomplete. Impression Sinus bradycardia Telemetry findings: Sinus rhythm Reports reviewed: Last Echo 05/16/23 TRANSTHORACIC ECHOCARDIOGRAM (TTE) COMPLETE (CONTRAST/BUBBLE/3D PRN) 05/18/2023 1:26 PM (Final) Interpretation Summary Left Ventricle: Left ventricle size is normal. Normal wall thickness. Normal left ventricular systolic function. EF by 2D Simpsons Biplane is 59%. Normal wall motion. Right Ventricle: Right ventricle size is normal. Normal systolic function. Tricuspid Valve: Normal RVSP. RVSP is 21 mmHg. Left Atrium: Left atrium is mildly dilated. Left atrium size is mildly increased (LA volume index 35-41 mL/m2).LA Vol Index A/L is 37 mL/m2. No significant valvular abnormalities. Signed by: Reji Medellin MD on 05/18/2023 1:26 PM Last Cath No results found for this or any previous visit. Last Stress Test No results found for this or any previous visit. Last EP study No results found for this or any previous visit. EF BP Date Value Ref Range Status 05/18/2023 59 55 - 100 % Final FARHAD SCORE: FARHAD Score Link Be Tomas MD DATE of SERVICE: 05/18/2023 documented in this encounterSCleveland Clinic Mercy [id number] Note* Care Coordination - Zahida Salazar RN - 05/18/2023 1:15 PM EDT Made aware by JADON THRASHER that This patient's insurance plan is out of network with [facility]. Please notify the patient and the provider so that she can be transferred to an in-network facility when stable. MD Haydee added to conversation, no response yet. [facility] [id number] Note* Care Coordination - Zahida Salazar RN - 05/18/2023 1:15 PM EDT Made aware by JADON THRASHER that This patient's insurance plan is out of network with [facility]. Please notify the patient and the provider so that she can be transferred to an in-network facility when stable. MD Haydee added to conversation, no response yet. [facility] [id number] Note* Care Coordination - Zahida Salazar RN - 05/18/2023 12:53 PM EDT Care Managment Initial Assessment Date: 05/18/2023 Patient Name: Ayala Aranda : 1965 Patient Information Source of Information: Patient Cognition/Language: WFL - Within Functional Limits Permission given to speak with patient reimbursement representative/caregiver as indicated: Confirmation of Payer with patient/family: Yes Payer Name: caresource [place]: No Confirmation of Primary Care Physician: Confirmed PCP Name: DO Eden Seen in last 2 years?: Yes Primary Caregiver: Self If assistance needed, confirmed caregiver ready, willing and able to care for patient at discharge:Yes () Confirmed with: patient Living Arrangements Current Residence: House Number of Floors 1 Number of Entry Steps: 2 Bed/Bath Levels: Both first floor Facility: Facility Name: Plan to Return: Lives with: Spouse/significant other, Children Support Systems: Spouse/significant other, Children, Family members Activities of Daily Living Ambulation: Independent Bathing/Dressing: Independent Elimination/Continence/Toileting: Independent Feeding: Independent Who Assists with Activities of Daily Living: Instrumental Activities of Daily Living Prescription Coverage: Yes Pharmacy Used: [facility] Medication Management: Independent Transportation/Shopping: Independent Transportation Mode: Car Needs Assistance with Transportation at Discharge: No Meal Preparation: Independent Laundry/Cleaning: Independent Finances/Bill Paying: Independent Communication: Independent Types of Care Services/Equipment Utilized Care Services: Dialysis Type: NA Durable Medical Equipment: DME Provider: none Patient's Goal/Discharge Plan Patient expects to be discharged to: home Discharge Planning Actions: Continue to follow, No needs identified Patient's Choice Rights and [employer] and Collaborative Relationships Disclosed as Indicated for Post-Acute Care: Interdisciplinary Team Engagement: Social Work Referral for: Additional Information: Met with patient at bedside. Patient is admitted to for syncope and unresponsive episode lasting3 minutes. Patient came to [facility] via EMS. Patient denies DME needs, denies TCC needs, patient is independent at home. TCC to follow. Zahida Salazar RN [facility] [id number] Note* Care Coordination - Zahida Salazar RN - 05/18/2023 12:53 PM EDT Care Managment Initial Assessment Date: 05/18/2023 Patient Name: Ayala Aranda : 1965 Patient Information Source of Information: Patient Cognition/Language: WFL - Within Functional Limits Permission given to speak with patient reimbursement representative/caregiver as indicated: Confirmation of Payer with patient/family: Yes Payer Name: caresource : No Confirmation of Primary Care Physician: Confirmed PCP Name: DO Eden Seen in last 2 years?: Yes Primary Caregiver: Self If assistance needed, confirmed caregiver ready, willing and able to care for patient at discharge:Yes () Confirmed with: patient Living Arrangements Current Residence: House Number of Floors 1 Number of Entry Steps: 2 Bed/Bath Levels: Both first floor Facility: Facility Name: Plan to Return: Lives with: Spouse/significant other, Children Support Systems: Spouse/significant other, Children, Family members Activities of Daily Living Ambulation: Independent Bathing/Dressing: Independent Elimination/Continence/Toileting: Independent Feeding: Independent Who Assists with Activities of Daily Living: Instrumental Activities of Daily Living Prescription Coverage: Yes Pharmacy Used: [facility] Medication Management: Independent Transportation/Shopping: Independent Transportation Mode: Car Needs Assistance with Transportation at Discharge: No Meal Preparation: Independent Laundry/Cleaning: Independent Finances/Bill Paying: Independent Communication: Independent Types of Care Services/Equipment Utilized Care Services: Dialysis Type: NA Durable Medical Equipment: DME Provider: none Patient's Goal/Discharge Plan Patient expects to be discharged to: home Discharge Planning Actions: Continue to follow, No needs identified Patient's Choice Rights and [employer] and Collaborative Relationships Disclosed as Indicated for Post-Acute Care: Interdisciplinary Team Engagement: Social Work Referral for: Additional Information: Met with patient at bedside. Patient is admitted to for syncope and unresponsive episode lasting3 minutes. Patient came to [facility] via EMS. Patient denies DME needs, denies TCC needs, patient is independent at home. TCC to follow. Zahida Salazar RN [facility] [id number] Plan of care note* Care Plan - Althea Potts RN - 05/18/2023 3:20 AM EDT Problem: Pain - Adult Goal: Verbalizes/displays adequate comfort level or baseline comfort level Outcome: Progressing Problem: Safety - Adult Goal: Free from fall injury Outcome: Progressing Problem: Chronic Conditions and Co-morbidities Goal: Patient's chronic conditions and co-morbidity symptoms are monitored and maintained or improved Outcome: Progressing [facility] [id number] NoteHospitalist Progress Note 05/17/2023 Subjective: Admit Date: 05/16/2023 PCP: Emma Harmon DO Room#: 1C-133/1C-133 A Brief Hospital course: 58 y.o. female with past medical history below who presented to ED with EMS for syncope. When they arrived, she was talking, reported feeling nauseous, and had some facial tingling. She subsequently had an episode of unresponsiveness that lasted 3 minutes. She reports feeling unwell for approximately 3 weeks. She reports that she has had forgetfulness. Also patient mentioned that that she has been going through a lot of stress at home lately. Interval History: Patient is lying on the bed, headache and tingling on her face better compared to before. Requesting stronger pain medications Tolerating p.o. diet well, denies any nausea or vomitings Denies any dizziness or lightheadedness. Denies any upper or lower extremity weakness. 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 Depression Difficult intravenous access Diverticulitis Fatigue Fibromyalgia GERD (gastroesophageal reflux disease) Headache History of blood transfusion HTN (hypertension) Hyperlipidemia Hypothyroidism Intestinal malabsorption 02/16/2018 Joint pain Morbid obesity (CMS/HCC) Nausea Type 2 diabetes mellitus without complication (CMS/HCC) since gastric not on meds LABS: CBC: Recent Labs 05/16/23205005/17/23 0309 WBC 9.6 8.3 RBC 3.77* 3.75* HGB 11.4* 11.3* HCT 33.9* 33.4* MCV 89.9 89.1 RDW 13.0 13.2 PLT 254 243 BMP: Recent Labs 05/16/23205005/17/23 0309 NA 139 139 K 4.2 3.9 CL 110* 108* CO2 22 23 BUN 20* 16 CREATININE 0.47* 0.36* GLUCOSE 101* 91 CALCIUM 8.5 8.6 ANIONGAP 7 8 LIVER PROFILE:No results for input(s): AST, ALT, BILITOT, ALKPHOS, PROT in the last 72 hours. No lab exists for component: LABALBU PT/INR: No results for input(s): PROTIME, INR in the last 72 hours. CARDIAC ENZYMES: Recent Labs 05/16/23205005/17/23 0019 05/17/23 0309 TROPONINI <0.012 <0.012 <0.012 Procalcitonin: No results found for: PROCAL COVID-19 PCR: No results for input(s): COVID19 in the last 72 hours. Objective: Vitals: BP 133/83 Pulse 51 Temp 36.8 ?C (98.2 ?F) (Temporal) Resp 21 Ht 5' (1.524 m) Wt 170 lb (77.1 kg) SpO2 97% BMI 33.20 kg/m? Pulse Ox: SpO2 Av.6 % Min: 92 % Max: 99 % Supplemental O2: Physical Exam General: No distress Neck: Supple. HEENT: Normocephalic atraumatic pupils equal react light Heart: S1-S2 heard no murmurs gallops regurgitation Lungs: Clear to auscultation bilaterally no wheezing rales rhonchi. Abdomen: Nondistended nontender bowel sounds are present Neuro: No focal deficits. Medications: Scheduled PRN cholecalciferol, 2,000 Units, Oral, Daily cyanocobalamin, 1,000 mcg, Oral, Daily enoxaparin, 40 mg, SubCUTAneous, Daily ferrous sulfate, 325 mg, Oral, Daily with breakfast levothyroxine, 88 mcg, Oral, qAM AC losartan, 50 mg, Oral, Daily PRN medications: acetaminophen OR acetaminophen, naloxone, perflutren protein A microsphere (Optison) 3 mL in sodium chloride (PF) 0.9 % 10 mL IV syringe, polyethylene glycol (PEG) 3350, traMADol Continuous sodium chloride, 100 mL/hr, Last Rate: 100 mL/hr (05/17/23 1147) Assessment Syncopal episode. Sinus bradycardia. Intractable headache. History of: Hypothyroidism Obesity-s/p bariatric surgery in 2019 Gastroesophageal reflux disease. Plan Currently patient is lying on the bed, denies any dizziness or lightheadedness. Still having some headache but better compared to admission. Pain medications are helping, requesting stronger pain meds. Denies any nausea or vomitings, tolerating p.o. diet well. Given her episode of bradycardia in the setting of syncope, cardiology consult placed. Will follow-up on the recommendations. Electrolytes reviewed and within normal limits. Vitals are stable. Home medications reviewed and resumed appropriately. PT OT evaluation - am labs, replace lytes prn - PT/OT/CM/SW - delirium precautions: increase activity, limit nighttime disturbances, and avoid anticholinergic meds, benzos, etc - DVT prophylaxis: enoxaparin and encourage ambulation Advance Directive: Full Code Anticipated Discharge - Date - 1-2 days - Location - Home - Pending the following - clinical improvement Total time spent (which include face to face and non face to face encounters) : 35 minutes Extended Emergency Contact Information Primary Emergency Contact: Jaylyn Aranda (more content not included)...[facility] [id number] Emergency department Note* Tete Buckley RN - 05/17/2023 2:14 PM EDT Due to patient being a stroke team. Report was called to 1C, given to JADON Funes. All questions answered. Patient transported to unit on dry cell battery assembler by a medic. No distress noted. VSKristy Buckley RN 05/17/23 1415 [id number]* Tete Buckley RN - 05/17/2023 2:14 PM EDT Due to patient being a stroke team. Report was called to , given to JADON Funes. All questions answered. Patient transported to unit on dry cell battery assembler by a medic. No distress noted. VSS Tete Buckley RN 05/17/23 1415 * Betty Gupta RN - 05/17/2023 1:38 PM EDT Report to Tete Gupta RN 05/17/23 1338 * Betty Gupta RN - 05/17/2023 10:[address] Monterroso notified via secure chat that pt has a headache and there is tingling in her face Betty Gupta RN 05/17/23 1030 * Betty Gupta RN - 05/17/2023 10:[address] Elliott notified via secure chat that pt has a headache and there is tingling in her face Betty Gupta RN 05/17/23 1006 * Betty Gupta RN - 05/17/2023 7:51 AM EDT Pt reports headache from last night. 7/10 pain. PO PRN tylenol provided. Pt alert and oriented, call light within reach, bed low and locked, side rails upx2. Pt reports no further needs at this time Betty Gupta RN 05/17/23 0752 * Becky Oates RN - 05/17/2023 3:06 AM EDT [employer] Professor at bedside to draw troponin and AM labs. Becky Oates RN 05/17/23 0306 * Delaney Patino RN - 05/16/2023 9:16 PM EDT Updated per patient request. Attempted to updated patients sister but no answer at this time. Delaney Patino RN 05/16/232116 * Enedelia Boyer RN - 05/16/2023 8:49 PM EDT BGT 104. Enedelia Boyer RN 05/16/232048 * Enedelia Boyer RN - 05/16/2023 8:46 PM EDT EKG at bedside. Enedelia Boyer RN 05/16/232045 * Enedelia Boyer RN - 05/16/2023 8:45 PM EDT Patient placed on crash cart pads. Enedelia Boyer RN 05/16/232044 * Raz De La Torre MD - 05/16/2023 8:43 PM EDT Emergency Department Encounter [facility] EMERGENCY DEPT Patient: Ayala Aranda : 1965 Date of Evaluation: 05/16/2023 ED Supervising Physician: Raz De La Torre MD I independently examined and evaluated Ayala Aranda. This will serve as my Supervisory note and shared attestation. I did perform a substantive portion of the visit including all aspects of the Medical Decision Making. I wore appropriate PPE for the entirety of this encounter. In brief, Ayala Aranda is a 58 y.o. that presents to the emergency department after having an episode of unconsciousness. EMS was called. When they arrived, she was talking, reported feeling nauseous, and had some facial tingling. She subsequently had an episode of unresponsiveness that lasted 3 minutes. She reports feeling unwell for approximately 3 weeks. She reports that she has had forgetfulness. She denies any chest pain or tightness. Focused exam: [id number], no acute distress, nontoxic-appearing HEENT- atraumatic, normocephalic Neck- no meningismus, no obvious masses Respiratory- bilateral breath sounds, no respiratory distress Cardiovascular- borderline bradycardic, well perfused Abdomen- soft, non-tender, no rebound or guarding MSK- normal muscle bulk, no gross deformities Skin- non-diaphoretic, no obvious rashes or lesions Neuro- alert, answering questions appropriately, CN2-12 grossly intact, moving all extremities Psych- calm, cooperative EKG interpreted by me: There is 16-24. Time 2045. Rate 57 sinus bradycardia. Normal axis. CECI 186, QRS 91, QTc 439. No STEMI. Independent historians: EMS Social determinants affecting care: None apparent Medical conditions affecting care: DM Escalation of care, appropriate for: Admission for syncope Brief ED course/MDM: 58-year-old female presenting after having an episode of unresponsiveness. Shedid not have a high degree heart block. She was hemodynamically stable. Her labs were largely reassuring. The etiology of her episode(s) of unresponsiveness is not clear. A CT of her head was reassuring. I have a low suspicion for CVA. I feel seizure is less likely. I think that the tingling that she reported was likely due to hypoperfusion due to pre-syncope/syncope, as opposed to a CVA. She has a history of diabetes, but was not hypoglycemic. She will be admitted for further workup of her syncope. Total Critical Care time was 5 minutes, excluding separately reportable procedures. There was a high probability of clinically significant/life threatening deterioration in the patient's condition which required my urgent intervention. All diagnostic, treatment, and disposition decisions were made by myself in conjunction with the Resident. I also supervised schrader portions of any procedures performed by the Resident. For all further details of the patient's emergency department visit, please see their documentation. (Comment: Please note this report has been produced using speech recognition software and may contain errors related to that system including errors in grammar, punctuation, and spelling, as well as words and phrases that may be inappropriate. If there are any questions or concerns please feel freeto contact the dictating provider for clarification.) Raz De La Torre MD [facility] Raz De La Torre MD 05/16/23 0026 * Melyssa Salinas DO - 05/16/2023 8:43 PM EDT EMERGENCY DEPARTMENT ENCOUNTER Pt Name: Ayala Aranda Birthdate 1965 Date of evaluation: 05/16/2023 ED Provider: Melyssa Salinas DO CHIEF COMPLAINT Chief Complaint Patient presents with Bradycardia Altered Mental Status HISTORY OF PRESENT ILLNESS (Location/Symptom, Timing/Onset, Context/Setting, Quality, Duration, Modifying Factors, Severity) Note limiting factors. I wore appropriate PPE for the entirety of this encounter. HPI Ayala Aranda is a 58 y.o. female, with PMHx significant for HTN, HLD, DM2, and fibromyalgia, who presents to the emergency department unresponsive episode. EMS explains that they were initially called by patient's family for an unresponsive episode but the patient was awake and alert on their arrival. En route to the ED they report a witnessed 2-3 minute episode of unresponsiveness with HR in the high 50s. EKG during the episode shows sinus bradycardia. Patient noted to have spontaneously returned to baseline with no loss of pulses or spontaneous respirations during the episode. Patient reports a few weeks of fatigue. Confirms facial tingling prior to the unresponsive episode that is now resolved. Denies fever, chills, cough, recent illness, chest pain, shortness of breath, abdominal pain, vomiting, diarrhea, constipation, black or bloody stools, leg swelling. Reports a history of thyroid disease but has been taking her Levothyroxine as prescribed with no missed doses. No recent medication changes and patient not on calcium channel preston or beta preston per records. Nursing Notes were reviewed. Limitations to history: None Outside historians: EMS REVIEW OF SYSTEMS Review of Systems Pertinent positives and negatives as per HPI. 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 COLONOSCOPY 04/2018 CYSTOSCOPY 03/17/2014 DR Luo. bilat urerteral stent placement. GASTRIC BYPASS 02/12/2018 LRYGB- Dr. Gomez [facility] HERNIA REPAIR 01/21/2019 Dr. Riley - [facility] General Surgery-retrorectus ventral repair w mesh. exp lap, BABATUNDE. HYSTERECTOMY 2008 low transverse INCISIONAL HERNIA REPAIR 02/03/2012 excision of syntheti mesh and use of Strattice with component separation. INCISIONAL HERNIA REPAIR 09/09/2011 [place] NECK SURGERY 2002 OTHER SURGICAL HISTORY 11/03/2019 panniculectomy with vac prevena placement UPPER GASTROINTESTINAL ENDOSCOPY 06/16/2017 PRE-OP PATRICIA UPPER GASTROINTESTINAL ENDOSCOPY 04/06/2018 CURRENT MEDICATIONS Current Discharge Medication List CONTINUE these medications which have NOT CHANGED Details Biotin 5 MG tablet dispersible Take 5,000 mcg by mouth in the morning. cholecalciferol (Vitamin D-3) 50 MCG (2000 UT) capsule Take 2,000 Units by mouth in the morning. cyanocobalamin (Vitamin B-12) 1000 MCG tablet Take 1,000 mcg by mouth in the morning. Docusate Sodium (DSS) 100 MG capsule Take 100 mg by mouth daily. ferrous sulfate 325 (65 Fe) MG tablet Take 325 mg by mouth daily (with breakfast). levothyroxine (Tirosint) 100 MCG capsule Take 100 mcg by mouth every morning (before breakfast). losartan (Cozaar) 25 MG tablet Take 25 mg by mouth Every 24 hours. rosuvastatin (Crestor) 20 MG tablet Take 20 mg by mouth daily. sertraline (Zoloft) 100 MG tablet Take 100 mg by mouth daily. ALLERGIES Diphenhydramine, Morphine, and Vancomycin FAMILY HISTORY Family History Problem Relation Name Age of Onset Hypertension Brother Heart disease Mother Hyperlipidemia Mother COPD Mother Bleeding Prob Mother Diabetes Mother Heart disease Father Hypertension Paternal Grandmother Hypertension Mother Colon cancer Neg Hx Diabetes Paternal Grandfather Hypertension Paternal Grandfather SOCIAL HISTORY Social History Socioeconomic History Marital status: Tobacco Use Smoking status: Never Smokeless tobacco: Never Substance and Sexual Activity Alcohol use: No Alcohol/week: 0.0 standard drinks of alcohol Drug use: No Social Determinants of Health Transportation Needs: No Transportation Needs (05/17/2023) PRAPARE - Transportation Lack of Transportation (Medical): No Lack of Transportation (Non-Medical): No Intimate Partner Violence: Not At Risk (05/17/2023) Humiliation, Afraid, Rape, and Kick questionnaire Fear of Current or Ex-Partner: No Emotionally Abused: No Physically Abused: No Sexually Abused: No Housing Stability: Unknown (05/17/2023) Housing Stability Vital Sign Unable to Pay for Housing in the Last Year: No Unstable Housing in the Last Year: No SCREENINGS PHYSICAL EXAM ED Triage Vitals Temp Heart Rate Resp BP 05/16/23204805/16/23204705/16/23204705/16/232047 36.8 C (98.2 F) 57 15 113/58 SpO2 Temp Source Heart Rate Source Patient Position 05/16/23204705/16/23204805/16/23221805/17/23 0614 99 % Oral Monitor Lying BP Location FiO2 (%) 05/17/23 0614 -- Right arm Physical Exam Vitals reviewed. Constitutional: General: She is not in acute distress. HENT: Head: Normocephalic and atraumatic. Cardiovascular: Rate and Rhythm: Regular rhythm. Bradycardia present. Pulmonary: Effort: Pulmonary effort is normal. Breath sounds: Normal breath sounds. Abdominal: Palpations: Abdomen is soft. Tenderness: There is no abdominal tenderness. Skin: Coloration: Skin is pale. Neurological: Mental Status: She is alert and oriented to person, place, and time. Sensory: No sensory deficit. Motor: No weakness. Psychiatric: Comments: Flat affect. DIAGNOSTIC RESULTS RADIOLOGY (Per Emergency Physician): Interpretation per the Radiologist below, if available at the time of this note: CT head wo IV contrast Final Result No acute intracranial abnormality. Mild chronic small vessel ischemic changes. Report Dictated on Electronically Signed By: Isela Duran MD Electronically Signed Date/Time: 05/16/2023 9:44 PM EDT CTA HEART CORONARY ANGIOGRAM WITH PROV FFR-CT (Results Pending) LABS: Labs Reviewed CBC WITH AUTO DIFFERENTIAL - Abnormal Result Value Auto WBC 9.6 RBC 3.77 (*) Hemoglobin 11.4 (*) Hematocrit 33.9 (*) MCV 89.9 MCH 30.2 MCHC 33.6 RDW 13.0 Platelets 254 MPV 10.5 nRBC 0.0 Neutrophils Relative 65.3 Lymphocytes Relative 27.3 Monocytes Relative 6.2 Eosinophils Relative 0.6 Basophils Relative 0.3 Immature Grans % 0.3 Neutrophils Absolute 6.3 Lymphocytes Absolute 2.6 Monocytes Absolute 0.6 Eosinophils Absolute 0.1 Basophils Absolute 0.0 Immature Grans Absolute 0.0 BASIC METABOLIC PANEL - Abnormal SODIUM 139 POTASSIUM 4.2 CHLORIDE 110 (*) CARBON DIOXIDE 22 UREA NITROGEN 20 (*) CREATININE 0.47 (*) GLUCOSE 101 (*) CALCIUM 8.5 ANION GAP 7 eGFR >90.0 Narrative: Slightly Hemolyzed. Interpret POTASSIUM with caution. ACETAMINOPHEN LEVEL - Abnormal ACETAMINOPHEN <10.0 (*) CBC WITH AUTO DIFFERENTIAL - Abnormal Auto WBC 8.3 RBC 3.75 (*) Hemoglobin 11.3 (*) Hematocrit 33.4 (*) MCV 89.1 MCH 30.1 MCHC 33.8 RDW 13.2 Platelets 243 MPV 10.8 nRBC 0.0 Neutrophils Relative 63.5 Lymphocytes Relative 29.7 Monocytes Relative 5.7 Eosinophils Relative 0.5 Basophils Relative 0.4 Immature Grans % 0.2 Neutrophils Absolute 5.3 Lymphocytes Absolute 2.5 Monocytes Absolute 0.5 Eosinophils Absolute 0.0 Basophils Absolute 0.0 Immature Grans Absolute 0.0 BASIC METABOLIC PANEL - Abnormal SODIUM 139 POTASSIUM 3.9 CHLORIDE 108 (*) CARBON DIOXIDE 23 UREA NITROGEN 16 CREATININE 0.36 (*) GLUCOSE 91 CALCIUM 8.6 ANION GAP 8 eGFR >90.0 POCT GLUCOSE METER UNSOLICITED RESULTS - Abnormal Glucose 104 (*) Narrative: Performed by: [facility], [address] [place] [id number] CLIA ID: [id number] THYROID STIMULATING HORMONE - Normal THYROID STIMULATING HORMONE 2.677 TROPONIN, WITH SERIAL REFLEX - Normal TROPONIN I <0.012 Narrative: Patients with high levels of Biotin oral intake (ie >5 mg/day) may have falsely decreased Troponin levels. FREE T4 - Normal FREE T4 0.91 T3 FREE - Normal T3, FREE 3.55 TROPONIN I - Normal TROPONIN I <0.012 Narrative: Patients with high levels of Biotin oral intake (ie >5 mg/day) may have falsely decreased Troponin levels. TROPONIN I - Normal TROPONIN I <0.012 Narrative: Patients with high levels of Biotin oral intake (ie >5 mg/day) may have falsely decreased Troponin levels. VITAMIN B12 - Normal VITAMIN B12 838 TROPONIN, WITH SERIAL REFLEX - Normal TROPONIN I <0.012 Narrative: Patients with high levels of Biotin oral intake (ie >5 mg/day) may have falsely decreased Troponin levels. BASIC METABOLIC PANEL WITH MG REFLEX Narrative: The following orders were created for panel order Basic Metabolic Panel w/ Mg Reflex. Procedure Abnormality Status --------- ------ Basic metabolic panel[[id number]] Abnormal Final result Please view results for these tests on the individual orders. TROPONIN I TROPONIN I All other labs were within normal range or not returned as of this dictation. EMERGENCY DEPARTMENT COURSE and DIFFERENTIAL DIAGNOSIS/MDM: Vitals: Vitals: 05/18/23 1122 05/18/23 1504 05/18/23 1505 05/18/23 1507 BP: 137/65 126/60 124/78 128/73 BP Location: Left arm Right arm Right arm Right arm Patient Position: Lying Lying Sitting Standing Pulse: 58 65 68 72 Resp: 13 16 Temp: 36.6 C (97.8 F) 37 C (98.6 F) TempSrc: Temporal Temporal SpO2: 96% 95% 95% 96% Weight: Height: The patient presented with a chief complaint of unresponsive episode. Vitals reviewed. The differential diagnosis associated with this patient's presentation includes symptomatic bradycardia, AV block, ACS, metabolic derangement, infectious process. Our workup consisted of ordering/reviewing EKG, CXR, and labs. EKG shows sinus bradycardia at [address] or T wave changes concerning for acute ischemia. CT head with no acute abnormalities. Labs significant for negative troponin, TSH and T3 T4 wnl, acetaminophen level wnl. No further unresponsive episodes while in the ED. To be admitted for further evaluation and management. Diagnoses as of 05/18/232014 Unresponsive episode External records reviewed: none Diagnostics interpreted by me: See MDM Discussions with other clinicians: Admitting team, CCU Chronic conditions impacting care: none Social determinants of health affecting care: none ED Medications managed: Medications cholecalciferol (Vitamin D-3) tablet 2,000 Units (2,000 Units Oral Given 05/18/23 1121) cyanocobalamin (Vitamin B-12) tablet 1,000 mcg (1,000 mcg Oral Given 05/18/23 1121) ferrous sulfate tablet 325 mg (325 mg Oral Given 05/18/23 0851) acetaminophen (Tylenol) tablet 650 mg (650 mg Oral Given 05/18/23 0615) Or acetaminophen (Tylenol) suppository 650 mg ( Rectal See Alternative 05/18/23 0615) polyethylene glycol (PEG) 3350 (Miralax) packet 17 g (has no administration in time range) enoxaparin (Lovenox) syringe 40 mg (40 mg SubCUTAneous Given 05/18/23 0851) sodium chloride 0.9 % infusion (100 mL/hr IntraVENous Rate/Dose Verify 05/17/23 1147) losartan (Cozaar) tablet 50 mg (50 mg Oral Given 05/18/23 0851) perflutren protein A microsphere (Optison) 3 mL in sodium chloride (PF) 0.9 % 10 mL IV syringe (hasno administration in time range) traMADol (Ultram) tablet 50 mg (50 mg Oral Given 05/18/23 1940) naloxone (Narcan) injection 0.4 mg (has no administration in time range) levothyroxine (Synthroid, Levoxyl) tablet 100 mcg (has no administration in time range) sertraline (Zoloft) tablet 100 mg (100 mg Oral Given 05/18/23 1308) docusate sodium (Colace) capsule 100 mg (100 mg Oral Not Given 05/18/23 1145) Prescription drugs considered: None PROCEDURES: Unless otherwise noted below, none Procedures FINAL IMPRESSION 1. Unresponsive episode DISPOSITION Admit 05/16/2023 11:15:36 PM PATIENT REFERRED TO: No follow-up provider specified. DISCHARGE MEDICATIONS: Current Discharge Medication List (Comment: Please note this report has been produced using speech recognition software and may contain errors related to that system including errors in grammar, punctuation, and spelling, as well as words and phrases that may be inappropriate. If there are any questions or concerns please feel freeto contact the dictating provider for clarification.) Melyssa Salinas DO (electronically signed) Emergency Medicine Provider Melyssa Salinas DO Resident 05/18/232111 * Enedelia Boyer RN - 05/16/2023 8:43 PM EDT Patient presents to ED 60 with EMS after being unresponsive in her home per family. Upon arrival ofEMS, patient was breathing and talking. Patient was on the floor, when EMS stood her up and assisted her to the chair, she stated that she felt dizzy, nauseous, and tingling. Patients EKG revealed bradycardia, per EMS they believed she may have been in a block. Patient intermittently unresponsive with EMS. Patient states that she has been feeling unwell for approximately 3 weeks. Patient states that she bas been forgetting things. Patient states that she takes medications that are not listed inher chart. Patient denies any pain. documented in this [facility]03-17-2024 Emergency department Note* Betty Gupta RN - 05/17/2023 1:38 PM EDT Report to Tete Gupta RN 05/17/23 1338 [id number] Emergency department Note* Betty Gupta RN - 05/17/2023 10:[address] Monterroso notified via secure chat that pt has a headache and there is tingling in her face Betty Gupta RN 05/17/23 1030 [id number] Emergency department Note* Betty Gupta RN - 05/17/2023 10:[address] Elliott notified via secure chat that pt has a headache and there is tingling in her face Betty Gupta RN 05/17/23 1006 [id number] Emergency department Note* Betty Gupta RN - 05/17/2023 7:51 AM EDT Pt reports headache from last night. 7/10 pain. PO PRN tylenol provided. Pt alert and oriented, call light within reach, bed low and locked, side rails upx2. Pt reports no further needs at this time Betty Gupta RN 05/17/23 0752 [id number] Emergency department Note* Becky Oates RN - 05/17/2023 3:06 AM EDT [employer] History Professor at bedside to draw troponin and AM labs. Becky Oates RN 05/17/23 0306 [place] [id number] History and physical note* Bette Wilkes MD - 05/16/2023 11:32 PM EDT Images from the original note were not included. Attending History and Physical Admit Date: 05/16/2023 PCP: Emma Harmon DO CHIEF COMPLAINT: Syncope HISTORY OF PRESENT ILLNESS: Ayala is a 58 y.o. female with past medical history below who presented to ED with EMS for syncope.When they arrived, she was talking, reported feeling nauseous, and had some facial tingling. She subsequently had an episode of unresponsiveness that lasted 3 minutes. She reports feeling unwell for a pproximately 3 weeks. She reports that she has had forgetfulness. In ED she denied active complaints. Denied chest pain, sob, palpitations, dizziness, nausea, vomiting, fever, chills, cough, or abd pain. Will admit for further evaluation and management. 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 COLONOSCOPY 04/2018 CYSTOSCOPY 03/17/2014 DR Luo. bilat urerteral stent placement. GASTRIC BYPASS 02/12/2018 LRYGB- Dr. Gomez [facility] HERNIA REPAIR 01/21/2019 Dr. Riley - [facility] General Surgery-retrorectus ventral repair w mesh. exp lap, BABATUNDE. HYSTERECTOMY 2007 low transverse INCISIONAL HERNIA REPAIR 02/03/2012 excision of syntheti mesh and use of Strattice with component separation. INCISIONAL HERNIA REPAIR 09/09/2011 [place] NECK SURGERY 2002 OTHER SURGICAL HISTORY 11/03/2019 panniculectomy with vac prevena placement UPPER GASTROINTESTINAL ENDOSCOPY 06/16/2017 PRE-OP PATRICIA UPPER GASTROINTESTINAL ENDOSCOPY 04/06/2018 Social History: Social History Socioeconomic History Marital status: Spouse name: Not on file Number of children: Not on file Years of education: Not on file Highest education level: Not on file Occupational History Not on file Tobacco Use Smoking status: Never Smokeless tobacco: Never Substance and Sexual Activity Alcohol use: No Alcohol/week: 0.0 standard drinks of alcohol Drug use: No Sexual activity: Not on file Other Topics Concern Not on file Social History Narrative Not on file Social Determinants of Health Financial Resource Strain: Not on file Food Insecurity: Not on file Transportation Needs: Not on file Physical Activity: Not on file Stress: Not on file Social Connections: Not on file Intimate Partner Violence: Not on file Housing Stability: Not on file Family History: Family History Problem Relation Name Age of Onset Hypertension Brother Heart disease Mother Hyperlipidemia Mother COPD Mother Bleeding Prob Mother Diabetes Mother Heart disease Father Hypertension Paternal Grandmother Hypertension Mother Colon cancer Neg Hx Diabetes Paternal Grandfather Hypertension Paternal Grandfather Medications Prior to Admission: No current facility-administered medications on file prior to encounter. Current Outpatient Medications on File Prior to Encounter Medication Sig Dispense Refill Biotin 5 MG tablet dispersible Take 5,000 mcg by mouth in the morning. cholecalciferol (Vitamin D-3) 50 MCG (2000 UT) capsule Take 2,000 Units by mouth in the morning. cyanocobalamin (Vitamin B-12) 1000 MCG tablet Take 1,000 mcg by mouth in the morning. ferrous sulfate 325 (65 Fe) MG tablet Take 325 mg by mouth daily (with breakfast). Allergies: Allergies Allergen Reactions Diphenhydramine Morphine Vancomycin REVIEW OF SYSTEMS: As per HPI Vitals: BP (!) 116/99 Pulse 55 Temp 36.8 C (98.2 F) (Oral) Resp 20 Ht 5' (1.524 m) Wt 170 lb (77.1 kg) SpO2 94% BMI 33.20 kg/m BMI Classification: Pulse Ox: SpO2 Av.7 % Min: 94 % Max: 99 % Supplemental O2: PHYSICAL EXAM: Physical Exam HEENT: PERRLA, EOMI Neck: supple, no JVD Chest: BLAE+, clear CVS: S1+, S2+, no m/r/g Abdomen: soft, nontender, BS+ INTERNAL SPECIALIST: AAOx3, no focal deficit Ext: pulse 2+, no edema DATA: CBC: Recent Labs 05/16/232050 WBC 9.6 RBC 3.77* HGB 11.4* HCT 33.9* MCV 89.9 RDW 13.0 PLT 254 BMP: Recent Labs 05/16/232050 NA 139 K 4.2 CL 110* CO2 22 BUN 20* CREATININE 0.47* GLUCOSE 101* CALCIUM 8.5 ANIONGAP 7 LIVER PROFILE:No results for input(s): AST, ALT, BILITOT, ALKPHOS, PROT in the last 72 hours. No lab exists for component: LABALBU PT/INR: No results for input(s): PROTIME, INR in the last 72 hours. CARDIAC ENZYMES: Recent Labs 05/16/232050 TROPONINI <0.012 Procalcitonin: No results found for: PROCAL Urine Culture: No results found for this or any previous visit. COVID-19 PCR: No results for input(s): COVID19 in the last 72 hours. I reviewed: [x] laboratory results [x] radiographic results At the time of today's encounter. Pt was advised of the results. Data: (LOW: 2x CAT1 or independent historian MOD: 3x CAT1 or 1x CAT3 EXTENSIVE: 3x CAT1 and 1x CAT3) Assessment Discussed management with the ED provider and agree with hospitalization. Acute, acute on chronic, unstable/uncontrolled chronic problems/diagnoses: # Syncope # Sinus bradycardia - npo - tele - check TSH - ECHO - cardiology consult Stable chronic problems affecting care, new non-acute diagnoses: # Hypothyroidism # GERD # Obesity Plan As a result of the above findings & factors, the following mgmt was pursued: - home meds as ordered - am labs, replace lytes prn - PT/OT/CM/SW - delirium precautions: increase activity - DVT prophylaxis: enoxaparin and encourage ambulation Advance Directive: No Order Anticipated Discharge - Date - TBD - Location - Home - Pending the following - clinical course Total time spent (which include face to face and non face to face encounters) : 56 minutes. Extended Emergency Contact Information Primary Emergency Contact: Dustin Aranda Relation: Child Secondary Emergency Contact: Jaylyn Aranda Relation: Spouse Bette Wilkes MD Division of Hospitalist Medicine [facility] [employer] Work Phone: [phone] NoteAttending History and Physical Admit Date: 05/16/2023 PCP: Emma Harmon DO CHIEF COMPLAINT: Syncope HISTORY OF PRESENT ILLNESS: Ayala is a 58 y.o. female with past medical history below who presented to ED with EMS for syncope. When they arrived, she was talking, reported feeling nauseous, and had some facial tingling. She subsequently had an episode of unresponsiveness that lasted 3 minutes. She reports feeling unwell for approximately 3 weeks. She reports that she has had forgetfulness. In ED she denied active complaints. Denied chest pain, sob, palpitations, dizziness, nausea, vomiting, fever, chills, cough, or abd pain. Will admit for further evaluation and management. 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 COLONOSCOPY 04/2018 CYSTOSCOPY 03/17/2014 DR Luo. bilat urerteral stent placement. GASTRIC BYPASS 02/12/2018 LRYGB- Dr. Gomez [facility] HERNIA REPAIR 01/21/2019 Dr. Riley - [facility] General Surgery-retrorectus ventral repair w mesh. exp lap, BABATUNDE. HYSTERECTOMY 2008 low transverse INCISIONAL HERNIA REPAIR 02/03/2012 excision of syntheti mesh and use of Strattice with component separation. INCISIONAL HERNIA REPAIR 09/09/2011 [place] NECK SURGERY 2002 OTHER SURGICAL HISTORY 11/03/2019 panniculectomy with vac prevena placement UPPER GASTROINTESTINAL ENDOSCOPY 06/16/2017 PRE-OP PATRICIA UPPER GASTROINTESTINAL ENDOSCOPY 04/06/2018 Social History: Social History Socioeconomic History Marital status: Spouse name: Not on file Number of children: Not on file Years of education: Not on file Highest education level: Not on file Occupational History Not on file Tobacco Use Smoking status: Never Smokeless tobacco: Never Substance and Sexual Activity Alcohol use: No Alcohol/week: 0.0 standard drinks of alcohol Drug use: No Sexual activity: Not on file Other Topics Concern Not on file Social History Narrative Not on file Social Determinants of Health Financial Resource Strain: Not on file Food Insecurity: Not on file Transportation Needs: Not on file Physical Activity: Not on file Stress: Not on file Social Connections: Not on file Intimate Partner Violence: Not on file Housing Stability: Not on file Family History: Family History Problem Relation Name Age of Onset Hypertension Brother Heart disease Mother Hyperlipidemia Mother COPD Mother Bleeding Prob Mother Diabetes Mother Heart disease Father Hypertension Paternal Grandmother Hypertension Mother Colon cancer Neg Hx Diabetes Paternal Grandfather Hypertension Paternal Grandfather Medications Prior to Admission: No current facility-administered medications on file prior to encounter. Current Outpatient Medications on File Prior to Encounter Medication Sig Dispense Refill Biotin 5 MG tablet dispersible Take 5,000 mcg by mouth in the morning. cholecalciferol (Vitamin D-3) 50 MCG (2000 UT) capsule Take 2,000 Units by mouth in the morning. cyanocobalamin (Vitamin B-12) 1000 MCG tablet Take 1,000 mcg by mouth in the morning. ferrous sulfate 325 (65 Fe) MG tablet Take 325 mg by mouth daily (with breakfast). Allergies: Allergies Allergen Reactions Diphenhydramine Morphine Vancomycin REVIEW OF SYSTEMS: As per HPI Vitals: BP (!) 116/99 Pulse 55 Temp 36.8 ?C (98.2 ?F) (Oral) Resp 20 Ht 5' (1.524 m) Wt 170 lb (77.1 kg) SpO2 94% BMI 33.20 kg/m? BMI Classification: Pulse Ox: SpO2 Av.7 % Min: 94 % Max: 99 % Supplemental O2: PHYSICAL EXAM: Physical Exam HEENT: PERRLA, EOMI Neck: supple, no JVD Chest: BLAE+, clear CVS: S1+, S2+, no m/r/g Abdomen: soft, nontender, BS+ INTERNAL SPECIALIST: AAOx3, no focal deficit Ext: pulse 2+, no edema DATA: CBC: Recent Labs 05/16/232050 WBC 9.6 RBC 3.77* HGB 11.4* HCT 33.9* MCV 89.9 RDW 13.0 PLT 254 BMP: Recent Labs 05/16/232050 NA 139 K 4.2 CL 110* CO2 22 BUN 20* CREATININE 0.47* GLUCOSE 101* CALCIUM 8.5 ANIONGAP 7 LIVER PROFILE:No results for input(s): AST, ALT, BILITOT, ALKPHOS, PROT in the l (more content not included)...[facility]03-16-2024 History and physical note* Bette Wilkes MD - 05/16/2023 11:32 PM EDT Images from the original note were not included. Attending History and Physical Admit Date: 05/16/2023 PCP: Emma Harmon DO CHIEF COMPLAINT: Syncope HISTORY OF PRESENT ILLNESS: Ayala is a 58 y.o. female with past medical history below who presented to ED with EMS for syncope.When they arrived, she was talking, reported feeling nauseous, and had some facial tingling. She subsequently had an episode of unresponsiveness that lasted 3 minutes. She reports feeling unwell for a pproximately 3 weeks. She reports that she has had forgetfulness. In ED she denied active complaints. Denied chest pain, sob, palpitations, dizziness, nausea, vomiting, fever, chills, cough, or abd pain. Will admit for further evaluation and management. 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 COLONOSCOPY 04/2018 CYSTOSCOPY 03/17/2014 DR Luo. bilat urerteral stent placement. GASTRIC BYPASS 02/12/2018 LRYGB- Dr. Gomez [facility] HERNIA REPAIR 01/21/2019 Dr. Riley - [facility] General Surgery-retrorectus ventral repair w mesh. exp lap, BABATUNDE. HYSTERECTOMY 2008 low transverse INCISIONAL HERNIA REPAIR 02/03/2012 excision of syntheti mesh and use of Strattice with component separation. INCISIONAL HERNIA REPAIR 09/09/2011 [place] NECK SURGERY 2003 OTHER SURGICAL HISTORY 11/03/2019 panniculectomy with vac prevena placement UPPER GASTROINTESTINAL ENDOSCOPY 06/16/2017 PRE-OP PATRICIA UPPER GASTROINTESTINAL ENDOSCOPY 04/06/2018 Social History: Social History Socioeconomic History Marital status: Spouse name: Not on file Number of children: Not on file Years of education: Not on file Highest education level: Not on file Occupational History Not on file Tobacco Use Smoking status: Never Smokeless tobacco: Never Substance and Sexual Activity Alcohol use: No Alcohol/week: 0.0 standard drinks of alcohol Drug use: No Sexual activity: Not on file Other Topics Concern Not on file Social History Narrative Not on file Social Determinants of Health Financial Resource Strain: Not on file Food Insecurity: Not on file Transportation Needs: Not on file Physical Activity: Not on file Stress: Not on file Social Connections: Not on file Intimate Partner Violence: Not on file Housing Stability: Not on file Family History: Family History Problem Relation Name Age of Onset Hypertension Brother Heart disease Mother Hyperlipidemia Mother COPD Mother Bleeding Prob Mother Diabetes Mother Heart disease Father Hypertension Paternal Grandmother Hypertension Mother Colon cancer Neg Hx Diabetes Paternal Grandfather Hypertension Paternal Grandfather Medications Prior to Admission: No current facility-administered medications on file prior to encounter. Current Outpatient Medications on File Prior to Encounter Medication Sig Dispense Refill Biotin 5 MG tablet dispersible Take 5,000 mcg by mouth in the morning. cholecalciferol (Vitamin D-3) 50 MCG (2000 UT) capsule Take 2,000 Units by mouth in the morning. cyanocobalamin (Vitamin B-12) 1000 MCG tablet Take 1,000 mcg by mouth in the morning. ferrous sulfate 325 (65 Fe) MG tablet Take 325 mg by mouth daily (with breakfast). Allergies: Allergies Allergen Reactions Diphenhydramine Morphine Vancomycin REVIEW OF SYSTEMS: As per HPI Vitals: BP (!) 116/99 Pulse 55 Temp 36.8 C (98.2 F) (Oral) Resp 20 Ht 5' (1.524 m) Wt 170 lb (77.1 kg) SpO2 94% BMI 33.20 kg/m BMI Classification: Pulse Ox: SpO2 Av.7 % Min: 94 % Max: 99 % Supplemental O2: PHYSICAL EXAM: Physical Exam HEENT: PERRLA, EOMI Neck: supple, no JVD Chest: BLAE+, clear CVS: S1+, S2+, no m/r/g Abdomen: soft, nontender, BS+ INTERNAL SPECIALIST: AAOx3, no focal deficit Ext: pulse 2+, no edema DATA: CBC: Recent Labs 05/16/232050 WBC 9.6 RBC 3.77* HGB 11.4* HCT 33.9* MCV 89.9 RDW 13.0 PLT 254 BMP: Recent Labs 05/16/232050 NA 139 K 4.2 CL 110* CO2 22 BUN 20* CREATININE 0.47* GLUCOSE 101* CALCIUM 8.5 ANIONGAP 7 LIVER PROFILE:No results for input(s): AST, ALT, BILITOT, ALKPHOS, PROT in the last 72 hours. No lab exists for component: LABALBU PT/INR: No results for input(s): PROTIME, INR in the last 72 hours. CARDIAC ENZYMES: Recent Labs 05/16/232050 TROPONINI <0.012 Procalcitonin: No results found for: PROCAL Urine Culture: No results found for this or any previous visit. COVID-19 PCR: No results for input(s): COVID19 in the last 72 hours. I reviewed: [x] laboratory results [x] radiographic results At the time of today's encounter. Pt was advised of the results. Data: (LOW: 2x CAT1 or independent historian MOD: 3x CAT1 or 1x CAT3 EXTENSIVE: 3x CAT1 and 1x CAT3) Assessment Discussed management with the ED provider and agree with hospitalization. Acute, acute on chronic, unstable/uncontrolled chronic problems/diagnoses: # Syncope # Sinus bradycardia - npo - tele - check TSH - ECHO - cardiology consult Stable chronic problems affecting care, new non-acute diagnoses: # Hypothyroidism # GERD # Obesity Plan As a result of the above findings & factors, the following mgmt was pursued: - home meds as ordered - am labs, replace lytes prn - PT/OT/CM/SW - delirium precautions: increase activity - DVT prophylaxis: enoxaparin and encourage ambulation Advance Directive: No Order Anticipated Discharge - Date - TBD - Location - Home - Pending the following - clinical course Total time spent (which include face to face and non face to face encounters) : 56 minutes. Extended Emergency Contact Information Primary Emergency Contact: Dustin Aranda Relation: Child Secondary Emergency Contact: Jaylyn Aranda Relation: Spouse Bette Wilkes MD Division of Hospitalist Medicine [facility] documented in this [facility]03-16-2024 Emergency department Note* Delaney Patino RN - 05/16/2023 9:16 PM EDT Updated per patient request. Attempted to updated patients sister but no answer at this time. Delaney Patino RN 05/16/232116 [place] [id number] Emergency department Note* Enedelia Boyer RN - 05/16/2023 8:49 PM EDT BGT 104. Enedelia Boyer RN 05/16/232048 [id number] Emergency department Note* Enedelia Boyer RN - 05/16/2023 8:46 PM EDT EKG at bedside. Enedelia Boyer RN 05/16/232045 [id number] Emergency department Note* Enedelia Boyer RN - 05/16/2023 8:45 PM EDT Patient placed on crash cart pads. Enedelia Boyer RN 05/16/232044 [id number] Emergency department Triage note* Enedelia Boyer RN - 05/16/2023 8:43 PM EDT Patient presents to ED 60 with EMS after being unresponsive in her home per family. Upon arrival ofEMS, patient was breathing and talking. Patient was on the floor, when EMS stood her up and assisted her to the chair, she stated that she felt dizzy, nauseous, and tingling. Patients EKG revealed bradycardia, per EMS they believed she may have been in a block. Patient intermittently unresponsive with EMS. Patient states that she has been feeling unwell for approximately 3 weeks. Patient states that she bas been forgetting things. Patient states that she takes medications that are not listed inher chart. Patient denies any pain. [place] [id number] Physician Emergency department Note* Raz De La Torre MD - 05/16/2023 8:43 PM EDT Emergency Department Encounter [facility] EMERGENCY DEPT Patient: Ayala Aranda : 1965 Date of Evaluation: 05/16/2023 ED Supervising Physician: Raz De La Torre MD I independently examined and evaluated Ayala Aranda. This will serve as my Supervisory note and shared attestation. I did perform a substantive portion of the visit including all aspects of the Medical Decision Making. I wore appropriate PPE for the entirety of this encounter. In brief, Ayala Aranda is a 58 y.o. that presents to the emergency department after having an episode of unconsciousness. EMS was called. When they arrived, she was talking, reported feeling nauseous, and had some facial tingling. She subsequently had an episode of unresponsiveness that lasted 3 minutes. She reports feeling unwell for approximately 3 weeks. She reports that she has had forgetfulness. She denies any chest pain or tightness. Focused exam: [id number], no acute distress, nontoxic-appearing HEENT- atraumatic, normocephalic Neck- no meningismus, no obvious masses Respiratory- bilateral breath sounds, no respiratory distress Cardiovascular- borderline bradycardic, well perfused Abdomen- soft, non-tender, no rebound or guarding MSK- normal muscle bulk, no gross deformities Skin- non-diaphoretic, no obvious rashes or lesions Neuro- alert, answering questions appropriately, CN2-12 grossly intact, moving all extremities Psych- calm, cooperative EKG interpreted by me: There is 16-24. Time 2045. Rate 57 sinus bradycardia. Normal axis. CECI 186, QRS 91, QTc 439. No STEMI. Independent historians: EMS Social determinants affecting care: None apparent Medical conditions affecting care: DM Escalation of care, appropriate for: Admission for syncope Brief ED course/MDM: 58-year-old female presenting after having an episode of unresponsiveness. Shedid not have a high degree heart block. She was hemodynamically stable. Her labs were largely reassuring. The etiology of her episode(s) of unresponsiveness is not clear. A CT of her head was reassuring. I have a low suspicion for CVA. I feel seizure is less likely. I think that the tingling that she reported was likely due to hypoperfusion due to pre-syncope/syncope, as opposed to a CVA. She has a history of diabetes, but was not hypoglycemic. She will be admitted for further workup of her syncope. Total Critical Care time was 5 minutes, excluding separately reportable procedures. There was a high probability of clinically significant/life threatening deterioration in the patient's condition which required my urgent intervention. All diagnostic, treatment, and disposition decisions were made by myself in conjunction with the Resident. I also supervised schrader portions of any procedures performed by the Resident. For all further details of the patient's emergency department visit, please see their documentation. (Comment: Please note this report has been produced using speech recognition software and may contain errors related to that system including errors in grammar, punctuation, and spelling, as well as words and phrases that may be inappropriate. If there are any questions or concerns please feel freeto contact the dictating provider for clarification.) Raz De La Torre MD [employer] Raz De La Torre MD 05/16/23 [id number] Phone: [phone] Physician Emergency department Note* Melyssa Salinas DO - 05/16/2023 8:43 PM EDT EMERGENCY DEPARTMENT ENCOUNTER Pt Name: Ayala Aranda Birthdate 1965 Date of evaluation: 05/16/2023 ED Provider: Melyssa Salinas DO CHIEF COMPLAINT Chief Complaint Patient presents with Bradycardia Altered Mental Status HISTORY OF PRESENT ILLNESS (Location/Symptom, Timing/Onset, Context/Setting, Quality, Duration, Modifying Factors, Severity) Note limiting factors. I wore appropriate PPE for the entirety of this encounter. HPI Ayala Aranda is a 58 y.o. female, with PMHx significant for HTN, HLD, DM2, and fibromyalgia, who presents to the emergency department unresponsive episode. EMS explains that they were initially called by patient's family for an unresponsive episode but the patient was awake and alert on their arrival. En route to the ED they report a witnessed 2-3 minute episode of unresponsiveness with HR in the high 50s. EKG during the episode shows sinus bradycardia. Patient noted to have spontaneously returned to baseline with no loss of pulses or spontaneous respirations during the episode. Patient reports a few weeks of fatigue. Confirms facial tingling prior to the unresponsive episode that is now resolved. Denies fever, chills, cough, recent illness, chest pain, shortness of breath, abdominal pain, vomiting, diarrhea, constipation, black or bloody stools, leg swelling. Reports a history of thyroid disease but has been taking her Levothyroxine as prescribed with no missed doses. No recent medication changes and patient not on calcium channel preston or beta preston per records. Nursing Notes were reviewed. Limitations to history: None Outside historians: EMS REVIEW OF SYSTEMS Review of Systems Pertinent positives and negatives as per HPI. 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 COLONOSCOPY 04/2018 CYSTOSCOPY 03/17/2014 DR Luo. bilat urerteral stent placement. GASTRIC BYPASS 02/12/2018 LRYGB- Dr. Gomez [facility] HERNIA REPAIR 01/21/2019 Dr. Riley - [facility] General Surgery-retrorectus ventral repair w mesh. exp lap, BABATUNDE. HYSTERECTOMY 2007 low transverse INCISIONAL HERNIA REPAIR 02/03/2012 excision of syntheti mesh and use of Strattice with component separation. INCISIONAL HERNIA REPAIR 09/09/2011 [place] NECK SURGERY 2002 OTHER SURGICAL HISTORY 11/03/2019 panniculectomy with vac prevena placement UPPER GASTROINTESTINAL ENDOSCOPY 06/16/2017 PRE-OP PATRICIA UPPER GASTROINTESTINAL ENDOSCOPY 04/06/2018 CURRENT MEDICATIONS Current Discharge Medication List CONTINUE these medications which have NOT CHANGED Details Biotin 5 MG tablet dispersible Take 5,000 mcg by mouth in the morning. cholecalciferol (Vitamin D-3) 50 MCG (2000 UT) capsule Take 2,000 Units by mouth in the morning. cyanocobalamin (Vitamin B-12) 1000 MCG tablet Take 1,000 mcg by mouth in the morning. Docusate Sodium (DSS) 100 MG capsule Take 100 mg by mouth daily. ferrous sulfate 325 (65 Fe) MG tablet Take 325 mg by mouth daily (with breakfast). levothyroxine (Tirosint) 100 MCG capsule Take 100 mcg by mouth every morning (before breakfast). losartan (Cozaar) 25 MG tablet Take 25 mg by mouth Every 24 hours. rosuvastatin (Crestor) 20 MG tablet Take 20 mg by mouth daily. sertraline (Zoloft) 100 MG tablet Take 100 mg by mouth daily. ALLERGIES Diphenhydramine, Morphine, and Vancomycin FAMILY HISTORY Family History Problem Relation Name Age of Onset Hypertension Brother Heart disease Mother Hyperlipidemia Mother COPD Mother Bleeding Prob Mother Diabetes Mother Heart disease Father Hypertension Paternal Grandmother Hypertension Mother Colon cancer Neg Hx Diabetes Paternal Grandfather Hypertension Paternal Grandfather SOCIAL HISTORY Social History Socioeconomic History Marital status: Tobacco Use Smoking status: Never Smokeless tobacco: Never Substance and Sexual Activity Alcohol use: No Alcohol/week: 0.0 standard drinks of alcohol Drug use: No Social Determinants of Health Transportation Needs: No Transportation Needs (05/17/2023) PRAPARE - Transportation Lack of Transportation (Medical): No Lack of Transportation (Non-Medical): No Intimate Partner Violence: Not At Risk (05/17/2023) Humiliation, Afraid, Rape, and Kick questionnaire Fear of Current or Ex-Partner: No Emotionally Abused: No Physically Abused: No Sexually Abused: No Housing Stability: Unknown (05/17/2023) Housing Stability Vital Sign Unable to Pay for Housing in the Last Year: No Unstable Housing in the Last Year: No SCREENINGS PHYSICAL EXAM ED Triage Vitals Temp Heart Rate Resp BP 05/16/23204805/16/23204705/16/23204705/16/232047 36.8 C (98.2 F) 57 15 113/58 SpO2 Temp Source Heart Rate Source Patient Position 05/16/23204705/16/23204805/16/23221805/17/23 0614 99 % Oral Monitor Lying BP Location FiO2 (%) 05/17/23 0614 -- Right arm Physical Exam Vitals reviewed. Constitutional: General: She is not in acute distress. HENT: Head: Normocephalic and atraumatic. Cardiovascular: Rate and Rhythm: Regular rhythm. Bradycardia present. Pulmonary: Effort: Pulmonary effort is normal. Breath sounds: Normal breath sounds. Abdominal: Palpations: Abdomen is soft. Tenderness: There is no abdominal tenderness. Skin: Coloration: Skin is pale. Neurological: Mental Status: She is alert and oriented to person, place, and time. Sensory: No sensory deficit. Motor: No weakness. Psychiatric: Comments: Flat affect. DIAGNOSTIC RESULTS RADIOLOGY (Per Emergency Physician): Interpretation per the Radiologist below, if available at the time of this note: CT head wo IV contrast Final Result No acute intracranial abnormality. Mild chronic small vessel ischemic changes. Report Dictated on Electronically Signed By: Isela Duran MD Electronically Signed Date/Time: 05/16/2023 9:44 PM EDT CTA HEART CORONARY ANGIOGRAM WITH PROV FFR-CT (Results Pending) LABS: Labs Reviewed CBC WITH AUTO DIFFERENTIAL - Abnormal Result Value Auto WBC 9.6 RBC 3.77 (*) Hemoglobin 11.4 (*) Hematocrit 33.9 (*) MCV 89.9 MCH 30.2 MCHC 33.6 RDW 13.0 Platelets 254 MPV 10.5 nRBC 0.0 Neutrophils Relative 65.3 Lymphocytes Relative 27.3 Monocytes Relative 6.2 Eosinophils Relative 0.6 Basophils Relative 0.3 Immature Grans % 0.3 Neutrophils Absolute 6.3 Lymphocytes Absolute 2.6 Monocytes Absolute 0.6 Eosinophils Absolute 0.1 Basophils Absolute 0.0 Immature Grans Absolute 0.0 BASIC METABOLIC PANEL - Abnormal SODIUM 139 POTASSIUM 4.2 CHLORIDE 110 (*) CARBON DIOXIDE 22 UREA NITROGEN 20 (*) CREATININE 0.47 (*) GLUCOSE 101 (*) CALCIUM 8.5 ANION GAP 7 eGFR >90.0 Narrative: Slightly Hemolyzed. Interpret POTASSIUM with caution. ACETAMINOPHEN LEVEL - Abnormal ACETAMINOPHEN <10.0 (*) CBC WITH AUTO DIFFERENTIAL - Abnormal Auto WBC 8.3 RBC 3.75 (*) Hemoglobin 11.3 (*) Hematocrit 33.4 (*) MCV 89.1 MCH 30.1 MCHC 33.8 RDW 13.2 Platelets 243 MPV 10.8 nRBC 0.0 Neutrophils Relative 63.5 Lymphocytes Relative 29.7 Monocytes Relative 5.7 Eosinophils Relative 0.5 Basophils Relative 0.4 Immature Grans % 0.2 Neutrophils Absolute 5.3 Lymphocytes Absolute 2.5 Monocytes Absolute 0.5 Eosinophils Absolute 0.0 Basophils Absolute 0.0 Immature Grans Absolute 0.0 BASIC METABOLIC PANEL - Abnormal SODIUM 139 POTASSIUM 3.9 CHLORIDE 108 (*) CARBON DIOXIDE 23 UREA NITROGEN 16 CREATININE 0.36 (*) GLUCOSE 91 CALCIUM 8.6 ANION GAP 8 eGFR >90.0 POCT GLUCOSE METER UNSOLICITED RESULTS - Abnormal Glucose 104 (*) Narrative: Performed by: [facility], [address] [place] [address] CLIA ID: [id number] THYROID STIMULATING HORMONE - Normal THYROID STIMULATING HORMONE 2.677 TROPONIN, WITH SERIAL REFLEX - Normal TROPONIN I <0.012 Narrative: Patients with high levels of Biotin oral intake (ie >5 mg/day) may have falsely decreased Troponin levels. FREE T4 - Normal FREE T4 0.91 T3 FREE - Normal T3, FREE 3.55 TROPONIN I - Normal TROPONIN I <0.012 Narrative: Patients with high levels of Biotin oral intake (ie >5 mg/day) may have falsely decreased Troponin levels. TROPONIN I - Normal TROPONIN I <0.012 Narrative: Patients with high levels of Biotin oral intake (ie >5 mg/day) may have falsely decreased Troponin levels. VITAMIN B12 - Normal VITAMIN B12 838 TROPONIN, WITH SERIAL REFLEX - Normal TROPONIN I <0.012 Narrative: Patients with high levels of Biotin oral intake (ie >5 mg/day) may have falsely decreased Troponin levels. BASIC METABOLIC PANEL WITH MG REFLEX Narrative: The following orders were created for panel order Basic Metabolic Panel w/ Mg Reflex. Procedure Abnormality Status --------- ------ Basic metabolic panel[[id number]] Abnormal Final result Please view results for these tests on the individual orders. TROPONIN I TROPONIN I All other labs were within normal range or not returned as of this dictation. EMERGENCY DEPARTMENT COURSE and DIFFERENTIAL DIAGNOSIS/MDM: Vitals: Vitals: 05/18/23 1122 05/18/23 1504 05/18/23 1505 05/18/23 1507 BP: 137/65 126/60 124/78 128/73 BP Location: Left arm Right arm Right arm Right arm Patient Position: Lying Lying Sitting Standing Pulse: 58 65 68 72 Resp: 13 16 Temp: 36.6 C (97.8 F) 37 C (98.6 F) TempSrc: Temporal Temporal SpO2: 96% 95% 95% 96% Weight: Height: The patient presented with a chief complaint of unresponsive episode. Vitals reviewed. The differential diagnosis associated with this patient's presentation includes symptomatic bradycardia, AV block, ACS, metabolic derangement, infectious process. Our workup consisted of ordering/reviewing EKG, CXR, and labs. EKG shows sinus bradycardia at [address] or T wave changes concerning for acute ischemia. CT head with no acute abnormalities. Labs significant for negative troponin, TSH and T3 T4 wnl, acetaminophen level wnl. No further unresponsive episodes while in the ED. To be admitted for further evaluation and management. Diagnoses as of 05/18/232014 Unresponsive episode External records reviewed: none Diagnostics interpreted by me: See MDM Discussions with other clinicians: Admitting team, CCU Chronic conditions impacting care: none Social determinants of health affecting care: none ED Medications managed: Medications cholecalciferol (Vitamin D-3) tablet 2,000 Units (2,000 Units Oral Given 05/18/23 1121) cyanocobalamin (Vitamin B-12) tablet 1,000 mcg (1,000 mcg Oral Given 05/18/23 1121) ferrous sulfate tablet 325 mg (325 mg Oral Given 05/18/23 0851) acetaminophen (Tylenol) tablet 650 mg (650 mg Oral Given 05/18/23 0615) Or acetaminophen (Tylenol) suppository 650 mg ( Rectal See Alternative 05/18/23 0615) polyethylene glycol (PEG) 3350 (Miralax) packet 17 g (has no administration in time range) enoxaparin (Lovenox) syringe 40 mg (40 mg SubCUTAneous Given 05/18/23 0851) sodium chloride 0.9 % infusion (100 mL/hr IntraVENous Rate/Dose Verify 05/17/23 1147) losartan (Cozaar) tablet 50 mg (50 mg Oral Given 05/18/23 0851) perflutren protein A microsphere (Optison) 3 mL in sodium chloride (PF) 0.9 % 10 mL IV syringe (hasno administration in time range) traMADol (Ultram) tablet 50 mg (50 mg Oral Given 05/18/23 1940) naloxone (Narcan) injection 0.4 mg (has no administration in time range) levothyroxine (Synthroid, Levoxyl) tablet 100 mcg (has no administration in time range) sertraline (Zoloft) tablet 100 mg (100 mg Oral Given 05/18/23 1308) docusate sodium (Colace) capsule 100 mg (100 mg Oral Not Given 05/18/23 1145) Prescription drugs considered: None PROCEDURES: Unless otherwise noted below, none Procedures FINAL IMPRESSION 1. Unresponsive episode DISPOSITION Admit 05/16/2023 11:15:36 PM PATIENT REFERRED TO: No follow-up provider specified. DISCHARGE MEDICATIONS: Current Discharge Medication List (Comment: Please note this report has been produced using speech recognition software and may contain errors related to that system including errors in grammar, punctuation, and spelling, as well as words and phrases that may be inappropriate. If there are any questions or concerns please feel freeto contact the dictating provider for clarification.) Melyssa Salinas DO (electronically signed) Emergency Medicine Provider Melyssa Salinas DO Resident 05/18/232111 Aria [id number] Hospital Discharge instructions Patient Education 04/02/2023 22:19:47 Abdominal Pain Abdominal Pain Abdominal pain is pain in the stomach or belly area. Everyone has this pain from time to time. In many cases it goes away on its own. But abdominal pain can sometimes be due to a serious problem, such as appendicitis. So it s important to know when to get help. Causes of abdominal pain There are many possible causes of abdominal pain. Common causes in adults include: Constipation, diarrhea, or gas Stomach acid flowing back up into the esophagus (acid reflux or heartburn) Severe acid reflux, called GERD (gastroesophageal reflux disease) A sore in the lining of the stomach or small intestine (peptic ulcer) Inflammation of the gallbladder, liver, or pancreas Gallstones or kidney stones Appendicitis Intestinal blockage An internal organ pushing through a muscle or other tissue (hernia) Urinary tract infections In women, menstrual cramps, fibroids, ovarian cysts, pelvic inflammatory disease, or endometriosis Inflammation or infection of the intestines, including Crohn's disease and ulcerative colitis Irritable bowel syndrome Diagnosing the cause of abdominal pain Your healthcare provider will give you a physical exam help find the cause of your pain. If needed,you will have tests. Belly pain has many possible causes. So it can be hard to find the reason for your pain. Giving details about your pain can help. Tell your provider where and when you feel the pain, and what makes it better or worse. Also let your provider know if you have other symptoms such as: Fever Tiredness Upset stomach (nausea) Vomiting Changes in bathroom habits Blood in the stool or black, tarry stool Weight loss that you can't explain (involuntary weight loss?) Also report any family history of stomach or intestinal problems, or cancers. Tell your provider about all your alcohol use and drug use. Tell your provider about all medicines you use, including herbs, vitamins, and supplements. Treating abdominal pain Some causes of pain need emergency medical treatment right away. These include appendicitis or a bowel blockage. Other problems can be treated with rest, fluids, or medicines. Your healthcare provider can give you specific instructions for treatment or self-care based on what is causing your pain. If you have vomiting or diarrhea, sip water or other clear fluids. When you are ready to eat solid foods again, start with small amounts of qhlx-mz-pxtsws, low- fat foods. These include apple sauce, toast, or crackers. When to get medical care Call 911 or go to the hospital right away if you: Can t pass stool and are vomiting Are vomiting blood or have bloody diarrhea or black, tarry diarrhea Have chest, neck, or shoulder pain Feel like you might pass out Have pain in your shoulder blades with nausea Have sudden, severe belly pain Have new, severe pain unlike any you have felt before Have a belly that is rigid, hard, and hurts to touch Call your healthcare provider if you have: Pain for more than 5 days Bloating for more than 2 days Diarrhea for more than 5 days A fever of 100.4 F (38 C) or higher, or as directed by your healthcare provider Pain that gets worse Weight loss for no reason Continued lack of appetite Blood in your stool How to prevent abdominal pain Here are some tips to help prevent abdominal pain: Eat smaller amounts of food at each meal. Don't eat greasy, fried, or other high-fat foods. Don't eat foods that give you gas. Exercise regularly. Drink plenty of fluids. To help prevent GERD symptoms: Quit smoking. Reduce alcohol and foods that increase stomach acid. Don't use aspirin or odtg-aed-ojqxsav pain and fever medicines, if possible. This includes nonsteroidal anti-inflammatory drugs (NSAIDs). Lose excess weight. Finish eating at least 2 hours before you go to bed or lie down. Raise the head of your bed. [id number] [employer]. [address] [place] [address]. All rights reserved. This information is not intended as a substitute for professional medical care. Always follow yourhealthcare professional's instructions. Follow Up Care 04/02/2023 19:50:16 With:EMMA HARMON DO Address: [address] [facility] [place] [address]- [phone] When:2-4 days [facility] 02-01-2024 Note Discharge Instructions Thank you for allowing [place] to assist you with your healthcare needs. The following is importantdischarge information regarding your hospital visit. 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 Post Acute Orders No qualifying data available. You Need to Schedule the Following Appointments Follow Up with EMMA HARMON DO When Within 2-4 days Where: [address] [facility] [address]- [phone] Allergies Benadryl (Throat tightness) Vicodin morphine (Throat tightness) vancomycin (Throat symptom) Medications Please ask your primary doctor or pharmacist before taking any other medication not listed, including over the counter drugs, herbal medications, vitamins and or supplements as they may interact withyour home medications. What How Much When Why Instructions Last Dose New predniSONE (predniSONE 50 mg oral tablet) 1 tab(s) by mouth Every day Printed Prescription New traMADol (Ultram 50 mg oral tablet) 1 tab(s) by mouth Every 12 hours Abdominal pain Duration: 5 Days Printed Prescription Unchanged biotin (biotin 1000 mcg oral tablet) 1 tab(s) by mouth Once a day Duration: 90 Days Unchanged cholecalciferol (cholecalciferol 50 mcg (2000 intl units) oral capsule) 2 cap by mouth Once a day Duration: 90 Days Unchanged cyanocobalamin (Vitamin B12 1000 mcg oral tablet) 1 tab(s) by mouth Once a day Duration: 90 Days Unchanged DME (DME MISCellaneous) See instructions Rotator cuff tear dispense one sling and swath; dx M75.100 Unchanged DME (DME MISCellaneous) See instructions dx I10; dispense one automated sphygmomanometer with supplies. Unchanged docusate (DOK 100 mg oral capsule) 1 cap by mouth Two (2) times a day Duration: 90 Days Unchanged ferrous sulfate (ferrous sulfate 325 mg (65 mg elemental iron) oral tablet) 1 tab(s) by mouth Two (2) times a day Duration: 90 Days Take with food. Unchanged lactobacillus acidophilus (lactobacillus acidophilus oral tablet) 1 tab(s) by mouth Once a day Duration: 90 Days Unchanged levothyroxine (levothyroxine 100 mcg (0.1 mg) oral tablet) 1 tab(s) by mouth Once a day new dose Unchanged losartan (losartan 25 mg oral tablet) 1 tab(s) by mouth Once a day Duration: 90 Days Unchanged multivitamin (Multivitamin) 1 tab(s) by mouth Every day Unchanged polyethylene glycol 3350 (MiraLax oral powder for reconstitution) 17 gram(s) by mouth Two (2) times a day Duration: 30 Days Unchanged rosuvastatin (rosuvastatin 20 mg oral tablet) 1 tab(s) by mouth Daily at bedtime Duration: 90 Days Unchanged sertraline (sertraline 50 mg oral tablet) 1 tab(s) by mouth Once a day start 0.5 tab daily for 7 days, then increase to full tablet daily Please take this list to your next doctor s visit. Bring all medications you take, including over the counter medications, herbals and other supplements with you to your doctor s visit. Patients and families are reminded to discard old lists and to update any records with all medication providers or retail pharmacies. Education Materials Abdominal Pain Abdominal pain is pain in the stomach or belly area. Everyone has this pain from time to time. In many cases it goes away on its own. But abdominal pain can sometimes be due to a serious problem, such as appendicitis. So it s important to know when to get help. Causes of abdominal pain There are many possible causes of abdominal pain. Common causes in adults include: Constipation, diarrhea, or gas Stomach acid flowing back up into the esophagus (acid reflux or heartburn) Severe acid reflux, called GERD (gastroesophageal reflux disease) A sore in the lining of the stomach or small intestine (peptic ulcer) Inflammation of the gallbladder, liver, or pancreas Gallstones or kidney stones Appendicitis Intestinal blockage An internal organ pushing through a muscle or other tissue (hernia) Urinary tract infections In women, menstrual cramps, fibroids, ovarian cysts, pelvic inflammatory disease, or endometriosis Inflammation or infection of the intestines, including Crohn's disease and ulcerative colitis Irritable bowel syndrome Diagnosing the cause of abdominal pain Your healthcare provider will give you a physical exam help find the cause of your pain. If needed,you will have tests. Belly pain has many possible causes. So it can be hard to find the reason for your pain. Giving details about your pain can help. Tell your provider where and when you feel the pain, and what makes it better or worse. Also let your provider know if you have other symptoms such as: Fever Tiredness Upset stomach (nausea) Vomiting Changes in bathroom habits Blood in the stool or black, tarry stool Weight loss that you can't explain (involuntary weight loss?) Also report any family history of stomach or intestinal problems, or cancers. Tell your provider about all your alcohol use and drug use. Tell your provider about all medicines you use, including herbs, vitamins, and supplements. Treating abdominal pain Some causes of pain need emergency medical treatment right away. These include appendicitis or a bowel blockage. Other problems can be treated with rest, fluids, or medicines. Your healthcare provider can give you specific instructions for treatment or self-care based on what is causing your pain. If you have vomiting or diarrhea, sip water or other clear fluids. When you are ready to eat solid foods again, start with small amounts of ulbj-up-qnmsoi, low- fat foods. These include apple sauce, toast, or crackers. When to get medical care Call 911 or go to the hospital right away if you: Can t pass stool and are vomiting Are vomiting blood or have bloody diarrhea or black, tarry diarrhea Have chest, neck, or shoulder pain Feel like you might pass out Have pain in your shoulder blades with nausea Have sudden, severe belly pain Have new, severe pain unlike any you have felt before Have a belly that is rigid, hard, and hurts to touch Call your healthcare provider if you have: Pain for more than 5 days Bloating for more than 2 days Diarrhea for more than 5 days A fever of 100.4 F (38 C) or higher, or as directed by your healthcare provider Pain that gets worse Weight loss for no reason Continued lack of appetite Blood in your stool How to prevent abdominal pain Here are some tips to help prevent abdominal pain: Eat smaller amounts of food at each meal. Don't eat greasy, fried, or other high-fat foods. Don't eat foods that give you gas. Exercise regularly. Drink plenty of fluids. To help prevent GERD symptoms: Quit smoking. Reduce alcohol and foods that increase stomach acid. Don't use aspirin or uhpg-elx-vnyvmog pain and fever medicines, if possible. This includes nonsteroidal anti-inflammatory drugs (NSAIDs). Lose excess weight. Finish eating at least 2 hours before you go to bed or lie down. Raise the head of your bed. [id number] [employer]. [address] [place] [address], [place] [address]. All rights reserved. This information is not intended as a substitute for professional medical care. Always follow yourhealthcare professional's instructions. Additional Information VACCINATE! IT SAVES LIVES! Members of the community who have not yet received the COVID-19 vaccine and would like to receive it can visit one of [facility] vaccine clinics. There are many vaccine clinic locations within the [facility]. For locations and available times, please visit [email or web address].[email or web address]/. It is important to note that some COVID mobile vaccine clinics are held outdoors and may be canceled in rainy or stormy conditions. To learn more about pediatric vaccinations (ages 5-11), we invite you to visit the [facility] webpage. [email or web address] learn more about the COVID-19 vaccine, we invite you to visit the CDC website for a list of frequently asked questions. https://www.cdc.gov/coronavirus/2019-ncov/vaccines/faq.html [facility] Patient Portal Access Instructions: Stay connected with your healthcare team and access your personal medical information anytime with the [facility] Patient Portal. If you would like a full copy of your medical records please contact the [facility] Medical Records Department Thursday through Thursday between 8a.m. and 4:30p.m. Please follow the directions below to access the portal: 1.Access the email account you provided upon registration to the hospital.2.Look for an invitation email from [facility].3.Open the email and access the invitation link: Accept Invitation to [facility]4.Fill in the required ramirez to create your account. Sign into [email or web address] with your username and password that you created in the above steps to stay up to date. You can then view a summary of results, a summary of your visits, and the ability to download your summaries to your computer or send the information securely to a physician. Remember that your healthcare information is confidential, so carefully consider who you will allow to register on the [facility] Patient Portal for access to your information. You can also access the [facility] Patient Portal on the [employer] van. Simply click on Health Records under [employer] and then click on the [employer] logo. HOW TO SAFELY DISPOSE OF PRESCRIPTION MEDICATIONS Please use one of the following methods to safely dispose of your unused medications. 1.Use a drug disposal kit: the drug disposal pouch allows you to safely discard your old and unuseddrugs. Ask your nurse to give you one when you are discharged.2.Visit a local take-back location: Many local pharmacies and police departments have programs that collect old and unwanted prescriptiondrugs. Call your local pharmacy or go to [email or web address] to find one close to you.3.Make use of household items: Use cat litter or old coffee grounds to dispose medications if other options arenot available. Mix your drugs with these household products, seal them in an airtight container andthrow it into the garbage. Call [facility]: [phone] to be sure your drugs can be disposed of in this way. Some medicines may require a different approach.4.Never flush your medications down the toilet. IF YOU HAVE BEEN PRESCRIBED AN OPIOIDS FOR PAIN If you have been prescribed an opioid (such as hydrocodone, oxycodone or morphine), it is critical to understand the possible side effects and risks of opioid pain medications. Even when taken as directed, opioids can have several side effects including: Tolerance, meaning you might need to take more of a medication for the same pain relief. Nausea, vomiting and/or constipation. Sleepiness, dizziness, dry mouth, confusion, depression or itching. Physical dependence, meaning you have withdrawal symptoms when a medication is stopped ? this can develop within a few days. KNOW YOUR RESPONSIBILITIES It is important to know exactly how much and how often to take the opioid pain medications you are prescribed. Never take opioids in higher amounts or more often than prescribed. Do not combine opioids with alcohol or other drugs that cause drowsiness, such as benzodiazepines, also known as benzos,including diazepam and alprazolam, muscle relaxants or sleep aids. Never sell or share prescriptionopioids. This is illegal. Store opioids in a secure place and out of reach of others (including children, family, friends and visitors). The last page(s) of this document has been signed and retained as a CHART COPY Signatures Patient Education Materials Abdominal Pain Medication Leaflets My discharge plan and instructions have been reviewed and explained to me and INORMA EDITH M understand my current condition and have read and understand these discharge instructions. I have received a written copy of the plan/instructions. If I have questions, I am aware that I should contact my doctor. 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 Multiplanar reformatted images are provided for review. Automated exposure control, iterative reconstruction, and/or weight based adjustment of the mA/kV was utilized to reduce the radiation dose to as low as reasonably achievable. COMPARISON: 05/10/2021. 03/30/2020. HISTORY: ORDERING SYSTEM PROVIDED HISTORY: Reason for Exam: pain FINDINGS: Liver, spleen, and adrenals. Prior cholecystectomy. Pancreatic head 1.8 cm cyst has been previously characterized on MRI. Nonobstructive left nephrolithiasis. No obstructive uropathy. Symmetric bilateral renal enhancement. Prior gastric surgery. Atherosclerotic but nonaneurysmal abdominal aorta. There is gaseous distension of the cecum but it is not considered pathologic per size criteria. Normal appendix. There is no overt evidence of bowel obstruction. Small bowel appears within normal limits. No free air or free fluid. Mid left hemiabdomen area of mesenteric haziness with a few nonenlarged lymph nodes in close proximity (series 2, image 66). This is new since prior CT. The urinary bladder is well-distended without wall thickening or focal mass. Prior hysterectomy. No acute soft tissue bony abnormality. Prior lumbar surgery. Minimal bibasilar atelectasis. 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 Recommend follow-up in 8-12 weeks to assess for resolution, as there are additional differential considerations which could result in this imaging appearance. Stable appearing pancreatic cyst, previously characterized on MRI. I have personally reviewed the images of this examination and agree with the resident's findings and interpretation. Interpreted by: Vinicio Griffin Preliminary Report By: Kurt Mccauley Electronically signed By Vinicio Griffin Dictated Date: 04/02/2023 9:38:08 PM Prelim Date: 04/02/2023 9:47:34 PM Sign Date: 04/02/2023 10:01:18 PM [facility]ing [facility] Dis[facility] instructions Patient Education 07/24/2021 15:01:06 Shoulder Pain, Uncertain Cause Shoulder Pain with Uncertain Cause Shoulder pain can have many causes. Pain often comes from the structures that surround the shoulderjoint. These are the joint capsule, ligaments, tendons, muscles, and bursa. Pain can also come fromcartilage in the joint. Cartilage can become worn out or injured. It s important to know what s causing your pain so the healthcare provider can use the correct treatment. But sometimes it s difficult to find the exact cause of shoulder pain. You may need to see a specialist (orthopedist). You may also need special tests such as a CT scan or MRI. The provider may need to use special tools to lookinside the joint (arthroscopy). Shoulder pain can be treated with a sling or a device that keeps your shoulder from moving. You cantake an anti-inflammatory medicine such as ibuprofen to ease pain. You may need to do special shoulder exercises. Follow up with a specialist if the pain is severe or doesn t go away after a few weeks. Home care Follow these tips when caring for yourself at home: If a sling was given to you, leave it in place for the time advised by your healthcare provider. Ifyou aren t sure how long to wear it, ask for advice. If the sling becomes loose, adjust it so that your forearm is level with the ground. Your shoulder should feel well supported. Put an ice pack on the injured area for 20 minutes every 1 to 2 hours the first day. You can make your own ice pack by putting ice cubes in a plastic bag. Wrap the bag in a thin towel. Continue with ice packs 3 to 4 times a day for the next 2 days. Then use the pack as needed to ease pain and swelling. You may use acetaminophen or ibuprofen to control pain, unless another pain medicine was prescribed. If you have chronic liver or kidney disease, talk with your healthcare provider before using thesemedicines. Also talk with your provider if you ve ever had a stomach ulcer or GI bleeding. Shoulder pain may seem worse at night, when there is less to distract you from the pain. If you sleep on your side, try to keep weight off your painful shoulder. Propping pillows behind you may stop you from rolling over onto that shoulder during sleep. Shoulder and elbow joints can become stiff if left in a sling for too long. You should start range of motion exercises about 7 to 10 days after the injury. Talk with your provider to find out what type of exercises to do and how soon to start. You can take the sling off to shower or bathe. Follow-up care Follow up with your healthcare provider if you don t start to get better in the next 5 days. When to seek medical advice Call your healthcare provider right away if any of these occur: Pain or swelling gets worse or continues for more than a few days Your hand or fingers become cold, blue, numb, or tingly Large amount of bruising on your shoulder or upper arm Difficulty moving your hand or fingers Weakness in your hand or fingers Your shoulder becomes stiff It feels like your shoulder is popping out You are less able to do your daily activities [id number] [employer]. [address] [place] [address]. All rights reserved. This information is not intended as a substitute for professional medical care. Always follow yourhealthcare professional's instructions. Follow Up Care 07/24/2021 13:17:55 With:RUFINA BOYER MD, Orthopedic Address: [address] [place] [address] [place] [address]- When:2-4 days [facility] Evaluation + Plan note Future Appointments Appointment Date:12/17/2020 07:00:00 AM Scheduled Provider: Location:[facility] 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:PT Treatment - [place] Appointment Date:12/19/2020 07:30:00 AM Scheduled Provider: Location:[facility] 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:PT Treatment - [place] Appointment Date:12/24/2020 07:30:00 AM Scheduled Provider: Location:[facility] 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:PT Treatment - [place] Appointment Date:12/26/2020 07:30:00 AM Scheduled Provider: Location:[facility] 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:PT Treatment - [place] Appointment Date:12/31/2020 07:30:00 AM Scheduled Provider: Location:[facility] 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:PT Treatment - [place] Appointment Date:01/02/2021 07:30:00 AM Scheduled Provider: Location:[facility] 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:PT Treatment - [place] Appointment Date:01/07/2021 08:00:00 AM Scheduled Provider: Location:[facility] 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:PT Treatment - [place] Appointment Date:02/12/2021 08:30:00 AM Scheduled Provider:EMMA HARMON DO Location:[facility] 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:PC Wellness Annual Appointment Date:05/13/2021 08:30:00 AM Scheduled Provider:EMMA HARMON DO Location:[facility] 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:PC OV Future Scheduled Tests Laboratory* Thyroid Stimulating Hormone 01/17/20 Radiology* MRI Pancreas 04/24/21 * MRI Pancreas 10/22/21 * MRI Pancreas 04/24/22 [facility] Evaluation + Plan note Future Appointments Appointment Date:01/14/2021 10:30:00 AM Scheduled Provider: Location:[facility] 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:PT Treatment - [place] Appointment Date:02/12/2021 08:30:00 AM Scheduled Provider:EMMA HARMON DO Location:[facility] 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:PC Wellness Annual Appointment Date:05/13/2021 08:30:00 AM Scheduled Provider:EMMA HARMON DO Location:[facility] 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:PC OV Future Scheduled Tests Laboratory* Thyroid Stimulating Hormone 01/17/20 * Thyroid Stimulating Hormone 01/25/21 * Free T4 01/25/21 * Free T3 01/25/21 Radiology* MRI Pancreas 04/24/21 * MRI Pancreas 10/22/21 * MRI Pancreas 04/24/22 [facility] Evaluation + Plan note Future Appointments Appointment Date:05/13/2021 08:30:00 AM Scheduled Provider:EMMA HARMON DO Location:[facility] 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:PC OV Future Scheduled Tests Laboratory* Thyroid Stimulating Hormone 02/12/21 * Free T4 02/12/21 * Free T3 02/12/21 Radiology* MRI Pancreas 04/24/21 * MRI Pancreas 10/22/21 * MRI Pancreas 04/24/22 [facility] Evaluation + Plan note Future Appointments Appointment Date:05/13/2021 08:30:00 AM Scheduled Provider:EMMA HARMON DO Location:[facility] 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:PC OV Future Scheduled Tests Laboratory* COVID-19 Only (AO) 03/06/21 * Thyroid Stimulating Hormone 02/12/21 * Free T4 02/12/21 * Free T3 02/12/21 Radiology* MRI Pancreas 04/24/21 * MRI Pancreas 10/22/21 * MRI Pancreas 04/24/22 [facility] Evaluation + Plan note Future Appointments Appointment Date:05/13/2021 09:00:00 AM Scheduled Provider:EMMA HARMON DO Location:[facility] 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:PC OV Future Scheduled Tests Laboratory* Thyroid Stimulating Hormone 02/12/21 * Free T4 02/12/21 * Free T3 02/12/21 Radiology* MRI Pancreas 05/10/21 * MRI Pancreas 10/22/21 * MRI Pancreas 04/24/22 [facility] Evaluation + Plan note Future Appointments Appointment Date:07/25/2021 09:00:00 AM Scheduled Provider:EMMA HARMON DO Location:[facility] 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:PC OV Appointment Date:11/13/2021 08:00:00 AM Scheduled Provider:EMMA HARMON DO Location:[facility] 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: Wellness Annual Future Scheduled Tests Laboratory* Thyroid Stimulating Hormone 05/13/21 * Thyroid Stimulating Hormone 02/12/21 * Free T4 02/12/21 * A1C Hemoglobin 05/13/21 * Complete Blood Count 05/13/21 * Free T3 02/12/21 * Lipid Profile 05/13/21 * Microalbumin Level Urine 05/13/21 * Vitamin D Level 05/13/21 * Complete Metabolic Panel 05/13/21 Radiology* MA Mammo Screening Bilateral w/ Saji 05/13/21 * CT Angiography Chest w/ Contrast 05/21/21 * MRI MRCP 11/11/21 * MRI Pancreas 05/10/21 * MRI Pancreas 10/22/21 * MRI Pancreas 04/24/22 [facility] Evaluation + Plan note Future Appointments Appointment Date:11/13/2021 08:00:00 AM Scheduled Provider:EMMA HARMON DO Location:[facility] 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: Wellness Annual Future Scheduled Tests Laboratory* Thyroid Stimulating Hormone 05/13/21 * Thyroid Stimulating Hormone 02/12/21 * Free T4 02/12/21 * A1C Hemoglobin 05/13/21 * Complete Blood Count 05/13/21 * Free T3 02/12/21 * Lipid Profile 05/13/21 * Microalbumin Level Urine 05/13/21 * Vitamin D Level 05/13/21 * Complete Metabolic Panel 05/13/21 Radiology* MA Mammo Screening Bilateral w/ Saji 05/13/21 * CT Angiography Chest w/ Contrast 05/21/21 * MRI Shoulder w/o Contrast Right 07/25/21 * MRI MRCP 11/11/21 * MRI Pancreas 05/10/21 * MRI Pancreas 10/22/21 * MRI Pancreas 04/24/22 [facility] Evaluation + Plan note Future Appointments Appointment Date:04/08/2023 10:30:00 AM Scheduled Provider: Location:[facility] 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:MA Mammogram Screening Bilateral w/ Saji Appointment Date:04/08/2023 11:00:00 AM Scheduled Provider: Location:[facility] 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:BD Bone Density DEXA Axial Skeleton Appointment Date:05/01/2023 09:00:00 AM Scheduled Provider:EMMA HARMON DO Location:[facility] 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:PC Wellness Medicare Future Scheduled Tests Laboratory* Thyroid Stimulating Hormone 04/27/23 * Free T4 04/27/23 * Free T3 04/27/23 Radiology* MA Mammo Screening Bilateral w/ Saji 04/08/23 * BD Bone Density DEXA Axial Skeleton 04/08/23 * MRI MRCP 04/02/23 * MRI Pancreas 04/24/22 [facility] Evaluation + Plan note Future Appointments Appointment Date:06/30/2023 07:30:00 AM Scheduled Provider: Location:[facility] 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:EEG Routine Appointment Date:07/22/2023 09:30:00 AM Scheduled Provider:EMMA HARMON DO Location:[facility] 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:PC OV Diagnostic Tests Pending * Vitamin B1 (Thiamine), Blood 06/17/23 * Zinc, Plasma or Serum 06/17/23 Future Scheduled Tests Laboratory* Thyroid Stimulating Hormone 07/29/23 * Free T4 07/29/23 * Free T3 07/29/23 Radiology* MA Mammo Screening Bilateral w/ Saji 04/08/23 * MA Mammo Screening Bilateral w/ Saji 06/08/23 * EEG Routine 06/30/23 * BD Bone Density DEXA Axial Skeleton 04/08/23 * BD Bone Density DEXA Axial Skeleton 06/08/23 * MRI MRCP 04/02/23 [facility] Evaluation + Plan note Future Appointments Appointment Date:07/22/2023 09:30:00 AM Scheduled Provider:EMMA HARMON DO Location:[facility] 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:PC OV Future Scheduled Tests Laboratory* Thyroid Stimulating Hormone 07/29/23 * Free T4 07/29/23 * Free T3 07/29/23 Radiology* MA Mammo Screening Bilateral w/ Saji 04/08/23 * MA Mammo Screening Bilateral w/ Saji 06/08/23 * EEG Routine 06/30/23 * BD Bone Density DEXA Axial Skeleton 04/08/23 * BD Bone Density DEXA Axial Skeleton 06/08/23 * MRI MRCP 04/02/23 [facility] Evaluation + Plan note Future Appointments Appointment Date:07/22/2023 09:30:00 AM Scheduled Provider:EMMA HARMON DO Location:[facility] 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:PC OV Future Scheduled Tests Radiology* MA Mammo Screening Bilateral w/ Saji 04/08/23 * MA Mammo Screening Bilateral w/ Saji 06/08/23 * EEG Routine 06/30/23 * BD Bone Density DEXA Axial Skeleton 04/08/23 * BD Bone Density DEXA Axial Skeleton 06/08/23 * MRI MRCP 04/02/23 [facility] Evaluation + Plan note Future Appointments Appointment Date:09/08/2023 01:00:00 PM Scheduled Provider: Location:[facility] 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:MA Mammogram Screening Bilateral w/ Saji Appointment Date:09/08/2023 01:30:00 PM Scheduled Provider: Location:[facility] 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:BD Bone Density DEXA Axial Skeleton Appointment Date:09/28/2023 04:00:00 PM Scheduled Provider:EMMA HARMON DO Location:[facility] 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:PC OV Future Scheduled Tests Radiology* MA Mammo Screening Bilateral w/ Saji 09/08/23 * BD Bone Density DEXA Axial Skeleton 09/08/23 * MRI MRCP 04/02/23 [facility] Evaluation + Plan note Future Appointments Appointment Date:09/28/2023 04:00:00 PM Scheduled Provider:EMMA HARMON DO Location:[facility] 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:PC OV Future Scheduled Tests Radiology* MA Mammo Screening Bilateral w/ Saji 09/08/23 * BD Bone Density DEXA Axial Skeleton 09/08/23 * MRI MRCP 04/02/23 [facility] Evaluation + Plan note Future Appointments Appointment Date:02/12/2024 09:30:00 AM Scheduled Provider:EMMA HARMON DO [facility] 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:PC OV Future Scheduled Tests Laboratory* Vitamin B1 (Thiamine), Blood 11/12/23 * Ferritin 11/12/23 * Folate Level 11/12/23 * Thyroid Stimulating Hormone 11/12/23 * Free T4 11/12/23 * Vitamin B12 Level 11/12/23 * A1C Hemoglobin 11/12/23 * Complete Blood Count 11/12/23 * Lipid Profile 11/12/23 * Albumin/Creatinine Ratio, Random Urine 11/12/23 * Complete Metabolic Panel 11/12/23 * [facility] Send out (Blood Specimens) 11/12/23 Radiology* MA Mammo Screening Bilateral w/ Saji 09/08/23 * MA Mammo Screening Bilateral w/ Saji 11/24/23 * BD Bone Density DEXA Axial Skeleton 09/08/23 * CT Angiography Chest w/ Contrast 03/07/24 * MRI MRCP 04/02/23 [facility] Evaluation + Plan note Future Appointments Appointment Date:03/30/2024 03:30:00 PM Scheduled Provider:EMMA HARMON DO [facility] 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:PC OV Future Scheduled Tests Laboratory* Vitamin B1 (Thiamine), Blood 11/12/23 * Ferritin 11/12/23 * Folate Level 11/12/23 * Thyroid Stimulating Hormone 11/12/23 * Free T4 11/12/23 * Vitamin B12 Level 11/12/23 * A1C Hemoglobin 11/12/23 * Complete Blood Count 11/12/23 * Lipid Profile 11/12/23 * Albumin/Creatinine Ratio, Random Urine 11/12/23 * Complete Metabolic Panel 11/12/23 * [facility] Send out (Blood Specimens) 11/12/23 Radiology* MA Mammo Screening Bilateral w/ Saji 09/08/23 * MA Mammo Screening Bilateral w/ Saji 11/24/23 * BD Bone Density DEXA Axial Skeleton 09/08/23 * MRI MRCP 04/02/23 [facility] Evaluation + Plan note Future Appointments Appointment Date:08/03/2024 08:30:00 AM Scheduled Provider:PIPPA WHITTEN MD Location:[facility] 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: SHUTTLE CAR OPERATOR Appointment Date:11/11/2024 02:00:00 PM Scheduled Provider:EMMA HARMON DO [facility] 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:PC OV Follow Up Future Scheduled Tests Laboratory* Vitamin B1 (Thiamine), Blood 07/08/24 * Ferritin 07/08/24 * Folate Level 07/08/24 * Thyroid Stimulating Hormone 07/08/24 * Free T4 07/08/24 * Vitamin B12 Level 07/08/24 * A1C Hemoglobin 07/08/24 * Complete Blood Count 07/08/24 * Lipid Profile 07/08/24 * Albumin/Creatinine Ratio, Random Urine 11/12/23 * Vitamin D Level 07/08/24 * Complete Metabolic Panel 07/08/24 * [facility] Send out (Blood Specimens) 07/08/24 Radiology* MA Mammo Screening Bilateral w/ Saji 09/08/23 * MA Mammo Screening Bilateral w/ Saji 07/27/24 * MA Mammo Screening Bilateral w/ Saji 11/24/23 * BD Bone Density DEXA Axial Skeleton 09/08/23 * BD Bone Density DEXA Axial Skeleton Adult (21 yrs or older) 07/27/24 * CT Angiography Chest w/ Contrast 03/03/25 * CT Abdomen and Pelvis w/ contrast 06/10/24 * MRI MRCP 06/05/25 [facility] Evaluation + Plan note Future Appointments Appointment Date:08/19/2024 09:00:00 AM Scheduled Provider:ALIE MEJIAS MD Location:[facility] 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:PM SHUTTLE CAR OPERATOR Appointment Date:11/11/2024 02:00:00 PM Scheduled Provider:EMMA HARMON DO Location:[facility] 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: OV Follow Up Future Scheduled Tests Laboratory* Vitamin B1 (Thiamine), Blood 07/08/24 * Ferritin 07/08/24 * Folate Level 07/08/24 * Thyroid Stimulating Hormone 07/08/24 * Free T4 07/08/24 * Vitamin B12 Level 07/08/24 * A1C Hemoglobin 07/08/24 * Complete Blood Count 07/08/24 * Lipid Profile 07/08/24 * Albumin/Creatinine Ratio, Random Urine 11/12/23 * Vitamin D Level 07/08/24 * Complete Metabolic Panel 07/08/24 * [facility] Send out (Blood Specimens) 07/08/24 Radiology* MA Mammo Screening Bilateral w/ Saji 09/08/23 * MA Mammo Screening Bilateral w/ Saji 07/27/24 * MA Mammo Screening Bilateral w/ Saji 11/24/23 * BD Bone Density DEXA Axial Skeleton 09/08/23 * BD Bone Density DEXA Axial Skeleton Adult (21 yrs or older) 07/27/24 * CT Angiography Chest w/ Contrast 03/03/25 * CT Abdomen and Pelvis w/ contrast 06/10/24 * MRI MRCP 06/05/25 [facility] Evaluation note* Diagnosis Unresponsive episode- Primary Other alteration of consciousness Unresponsive episode Other alteration of consciousness Gastroesophageal reflux disease without esophagitis Esophageal reflux Gastrojejunal anastomotic stricture Hepatic steatosis Other chronic nonalcoholic liver disease Essential hypertension Unspecified essential hypertension Hypothyroidism Unspecified hypothyroidism Bradycardia Other specified cardiac dysrhythmias Intestinal malabsorption documented in this encounter [facility] note* Diagnosis Syncope and collapse- Primary Tingling of face Essential hypertension Unspecified essential hypertension documented in this encounter [facility] note* Diagnosis Syncope and collapse- Primary Tingling of face Essential hypertension Unspecified essential hypertension documented in this encounter [facility] note* Diagnosis Syncope and collapse documented in this encounter [facility] note* Diagnosis Seizure-like activity (HCC)- Primary Seizure-like activity (HCC) documented in this encounter [facility] note* Diagnosis Seizure-like activity (HCC)- Primary Psychogenic nonepileptic seizure documented in this encounter [facility] note* Diagnosis Convulsion (HCC)- Primary Other convulsions Convulsion (HCC) Other convulsions documented in this encounter [facility] noteNo assessment information availableWKettering Health [facility] Work Phone: Evaluation note* Diagnosis Onset Date Resolution Status Admit Date Abdominal pain acute September 8:03pm Acute diverticulitis acute 2024 8:03pm Altered level of consciousness acute October 11, 2024 8:03pm Bradycardia, sinus acute October 11, 2024 8:03pm Hypokalemia acute October 11, 2024 8:03pm Seizure disorder acute September 302024 8:03pm Syncope acute October 11 8:03pm Type II diabetes mellitus chronic October 11, 2024 8:03pm [facility] Work Phone: Hospital course Narrative No data available for this section [facility] Hospital Discharge instructions No data available for this section [facility] Hospital Discharge instructions Additional Instructions Your blood pressure readings have been elevated. You need to follow-up with your doctor to have your blood pressure rechecked in 1 to 2 weeks.[facility] Work Phone: Hospital Discharge instructions Additional Instructions Begin taking both senna and MiraLAX for your constipation. Follow-up with your PCP and return for any other concerns.[facility] Work Phone: Progress note No data available for this section [facility] Reason for referral (narrative)No reason for referral information availableWKettering Health [place] Work Phone: Summary note* IGOR Rodgers: PERFORM Event Display: Patient Summary Documents Authored Date: [id number] [facility] Summary Purpose Family History Relationship Condition Age at Onset Recorded Date/T stefani Unknown Family History?No pe rtinent history Unknown October 08, 2015 10:36pm Family History?No pe rtinent history Unknown October 08, 2015 10:36pm Advance Directives Documents on File Type Date Recorded Patient Residential Building Inspector Expl anation Advance Directives and Living Will Power of Preschool Associate Teacher Latest Code Status on File Code Status Date Activated Date Inactivated Comments Full Code 04/20/2018 11:00 AM 04/20/2018 2:10 PM Full Code 04/06/2018 11:14 AM 04/06/2018 3:38 PM Full Code 02/12/2018 6:24 PM 02/14/2018 5:37 PM Full Code 02/12/2018 12:24 PM 02/12/2018 6:24 PM Full Code 06/16/2017 7:45 AM 06/16/2017 12:14 PM Documents on File Type Date Recorded Patient Residential Building Inspector Expl anation ACP-Advance Directive ACP-Power of Preschool Associate Teacher Latest Code Status on File Code Status Date Activated Date Inactivated Comments Full Code 11/03/2019 6:29 PM Full Code 11/03/2019 9:23 AM 11/03/2019 6:18 PM Full Code 04/20/2018 11:00 AM 04/20/2018 2:10 PM Latest Code Status on File Code Status Date Activated Date Inactivated Comments Full Code 05/17/2023 3:04 AM 05/19/2023 4:35 PM Latest Code Status on File Code Status Date Activated Date Inactivated Comments Full Code 05/17/2023 3:04 AM 05/19/2023 4:35 PM Latest Code Status on File Code Status Date Activated Date Inactivated Comments Full Code 08/06/2023 9:34 AM Code Status History Code Status Date Activated Date Inactivated Comments Full Code 08/05/2023 8:29 PM 08/06/2023 9:34 AM Full Code 05/17/2023 3:04 AM 05/19/2023 4:35 PM Latest Code Status on File Code Status Date Activated Date Inactivated Comments Full Code 08/06/2023 9:34 AM 08/07/2023 9:01 PM Date Activated Date Inactivated Comments 08/06/2023 9:34 AM 08/07/2023 9:01 PM Date Activated Date Inactivated Comments 08/05/2023 8:29 PM 08/06/2023 9:34 AM Date Activated Date Inactivated Comments 05/17/2023 3:04 AM 05/19/2023 4:35 PM Date Activated Date Inactivated Comments 08/06/2023 9:34 AM 08/07/2023 9:01 PM Date Activated Date Inactivated Comments 08/05/2023 8:29 PM 08/06/2023 9:34 AM Date Activated Date Inactivated Comments 05/17/2023 3:04 AM 05/19/2023 4:35 PM Date Activated Date Inactivated Comments 10/30/2023 2:12 PM 11/01/2023 4:02 PM Date Activated Date Inactivated Comments 08/06/2023 9:34 AM 08/07/2023 9:01 PM Date Activated Date Inactivated Comments 08/05/2023 8:29 PM 08/06/2023 9:34 AM Date Activated Date Inactivated Comments 05/17/2023 3:04 AM 05/19/2023 4:35 PM Advance Directive Response Recorded Date/ Time Living Will No May 20, 2024 3:06pm Do you have a Healthcare Power of Preschool Associate Teacher? No May 20, 2024 3:06pm Advance Directives No October 07 11:22pm Advance Directive Response Recorded Date/ Time Living Will No June 05, 2024 9:53am Do you have a Healthcare Power of Preschool Associate Teacher? No June 05, 2024 9:53am Living Will No May 20, 2024 3:06pm Do you have a Healthcare Power of Preschool Associate Teacher? No May 20, 2024 3:06pm Advance Directives No October 07 11:22pm Advance Directive Response Recorded Date/ Time Living Will No June 05, 2024 9:53am Do you have a Healthcare Power of Preschool Associate Teacher? No June 05, 2024 9:53am Living Will No May 20, 2024 3:06pm Do you have a Healthcare Power of Preschool Associate Teacher? No May 20, 2024 3:06pm Do you have a Healthcare Power of Preschool Associate Teacher? No August 17, 2024 5:03pm Advance Directives No October 07 11:22pm Advance Directive Response Recorded Date/ Time Do you have a Healthcare Power of Preschool Associate Teacher? No August 17, 2024 5:03pm Do you have a Healthcare Power of Preschool Associate Teacher? No October 11, 2024 4:13pm Advance Directives No October 07 11:22pm Assessments Diagnosis Intestinal malabsorption, unspecified type Deficiency of multiple nutrient elements Other nutritional deficiency Gastroesophageal reflux disease without esophagitis Esophageal reflux Low iron Iron deficiency anemia, unspecified Morbid obesity (HCC) Morbid obesity Essential hypertension Unspecified essential hypertension Body mass index 30.0-30.9, adult Body Mass Index 30.0-30.9, adult Diagnosis Low iron Iron deficiency anemia, unspecified Deficiency of multiple nutrient elements Other nutritional deficiency Intestinal malabsorption, unspecified type Gastroesophageal reflux disease without esophagitis Esophageal reflux Essential hypertension Unspecified essential hypertension Diagnosis Localized adiposity Abdominal pannus Localized adiposity Discharge Instructions * Instructions* Waleska Zabala, RN - 10/27/2019 Follow all instructions given to you by Dr. Mckeon Please shower with an antibacterial soap( example DIAL OR SAFEGUARD) Please bring your [facility] Surgical Information folder on the day of surgery. Please anita the last dose taken (date and time ) on your Daily Medications List provided in your After Visit Summary. Please bring a photo ID and insurance information Do NOT take the following medications on the morning of surgery losartan TAKE the following medications the morning of your surgery levothyroxine You may take your prescription pain medications. You may take Tylenol (Acetaminophen) if needed forpain. No Motrin, Ibuprofen, or Advil 24 hours prior to surgery, or longer if instructed by your surgeon. No Aleve or Naprosyn 3 days prior to surgery, or longer if instructed by your surgeon. If you are on BLOOD THINNERS or ASPIRIN, IF ON BLOOD THINNERS TELL SURGEON AND NURSE NO ASPIRIN 5 DAYS PRIOR TO SURGERY Additional instructions Future COVID test keep your appt for upcoming test You will receive a reminder call the day before surgery with your Same Day Surgery arrival time. If you have specific questions, please call your surgeon. documented in this encounter* Instructions* Paul Mckeon III, MD - 11/03/2019 Plastics Instructions Head of bed at 30 degrees when sleeping. Abdominal binder on at all times. Vac to suction. Plug in when sitting OK to shower in 24 hours. documented in this encounter History of Present Illness * Myranda Gallagher RN - 11/03/2019 6:12 PM EDT Pt transferred to 5105 after calling report to the nurse on H5. Pts family aware of pts transfer. * Myranda Gallagher RN - 11/03/2019 5:[address] Rodriguez pageerwin re: pt attempting to get OOB again, having difficulty with nausea and dizziness. Bpstable, HR 55 upon returning to bed. See new orders. * Myranda Gallagher RN - 11/03/2019 4:[address] Jaquez pageerwin re: pts HR after ambulating. She states to give 25 mg IM ephedrine and 500 ml of LR. Will continue to monitor. * Myranda Gallagher RN - 11/03/2019 4:[address] Rodriguez reutrned call, states Dr. Mckeon would like for pt to go home as her and her family were aware this was an outpatient procedure, but states he will consider her staying overnight if her lethargy doesn't improve. Dr. Rodriguez and RN agreed will montior pt for another hour and determine if pt needs to stay. * Myranda Gallagher RN - 11/03/2019 4:[address] Rodriguez pageerwin re: pt very lethargic, low HR after getting up and ambulating, pts family states that pt normally has issues with anesthesia and might need to stay. Stated she would call Dr. Mckeon and return called re: plan of care. * Myranda Gallagher RN - 11/03/2019 4:10 PM EDT Pt up in room to ambulate, returned to bed. Pt states she was ready to go home and was starting to get dressed when she complained of nausea and became very pale. Pt returned bed, BP stable, HR in the 40's. New IV started. Will continue to monitor. documented in this encounterThere may be information available, but it has not been provided by the sender. Chief Complaint Chief Complaint Description Start Date ; post panniculectomy with f dante de lis and placement of wound vac on 11/03/2019 Preliminary chief co mplaint data, not yet signed by the author as of Instructions Instruction Description Start Date CompletedPatient advised to follow-up with Primary Care Physician for BMI management. Review of System There may be information available, but it has not been provided by the sender. Hospital Course Note Discharge Summary Ayala de leon : 1965 ADMIT DATE: 11/03/2019 DISCHARGE DATE: 11/04/2019 PRIMARY CARE PHYSICIAN: Florencia Nina MD VISIT STATUS: Observation CODE STATUS: Full Code DISCHARGE DIAGNOSES: Active Problems: Abdominal pannus Resolved Problems: * No resolved hospital problems. * HOSPITAL COURSE: Ms Aranda was admitted after a FDL panniculectomy for postop pain and nausea. She did well overnight and by morning was ambulating, nausea and pain were controlled. SIGNIFICANT DIAGNOSTIC STUDIES: na CONSULTANTS: na RECOMMENDED NEXT STEPS: na DISCHARGE MEDICATIONS: Ayala Aranda Home Medication Instructions HALINA:[id number] Printed on:11/04/19 0652 Medication Information amoxicillin (AMOXIL) 500 MG capsule Take 500 mg by mouth 3 times daily Biotin 5000 MCG CAPS Take by mouth CALCIUM CITRATE PO Take 500 mg by mouth 3 times daily Indications: supplement Cholecalciferol 35517 units TABS Take 50,000 tablets by mouth once a week for 12 doses Cyanocobalamin (VITAMIN (more content not included)... Reason for Referral Specialty Diagnoses / Procedures Referred By Cynthia regan Referred To Contact Neurology Diagnoses Seizure-like activity (HCC) Psychogenic nonepileptic seizure Procedures EEG GROUP HOME MONITORING 2 - 3 DAY Rhys Mata COPYMAN - SCHEDULE ANALYST [address] [facility] [address] [place] [address] Referral ID Status Reason Start Date Expiration Date V isits Requested Visits Authorized [id number] Pending Review 10/01/2023 09/25/2024 1 1 Specialty Diagnoses / Procedures Referred By Cynthia regan Referred To Contact Cardiology Diagnoses Syncope and collapse Procedures Cardiac event monitor (30 days) HI XTRNL ECG & 48 HR RECORDING HI EXTERNAL ECG SCANNING ANALYSIS REPORT HI XTRNL ECG CONTINUOUS RHYTHM W/I&R UP TO 48 HRS HI XTRNL MOBILE CV TELEMETRY W/I&REPORT 30 DAYS HI XTRNL MOBILE CV TELEMETRY W/TECHNICAL SUPPORT Marry Cooley, COPYMAN - SCHEDULE ANALYST [address] [place] [address] [facility] [address] [place] [address] Referral ID Status Reason Start Date Expiration Date V isits Requested Visits Authorized [id number] Authorized 05/27/2023 05/21/2024 1 1 Chief Complaint and Reason for Visit Chief Complaint Admit Date HERNIA May 20, 2024 3:0 6pm Chief Complaint Admit Date HERNIA May 20, 2024 3:0 6pm abd pain June 05, 2024 9:33 am Chief Complaint Admit Date HERNIA May 20, 2024 3:0 6pm abd pain June 05, 2024 9:33 am syncope August 17, 2024 4:51 pm Chief Complaint Admit Date syncope August 17, 2024 4:51 pm ACUTE DIVERTICULITIS, ABDOMINAL PAIN, SY NCOPE, October 11, 2024 8:03pm Reason for Visit Admit Date Abdominal pain October 11, 2024 8: 03pm Acute diverticulitis October 11, 2024 8 :03pm Altered level of consciousness October 112024 8:03pm Bradycardia, sinus October 11, 2024 8: 03pm Hypokalemia October 11, 2024 8: 03pm Seizure disorder October 11, 2024 8: 03pm Syncope October 11, 2024 8: 03pm Type II diabetes mellitus October 11, 025 8:03pm Additional Source Comments INFORMATION SOURCE (unrecogn ized section and content) DATE CREATED AUTHOR 08/27/2018 [facility] DATE CREATED AUTHOR AUTHOR'S ORGANIZ ATION 09/17/2019 [facility] DATE CREATED AUTHOR AUTHOR'S ORGANIZ ATION 11/11/2019 [facility] DATE CREATED AUTHOR AUTHOR'S ORGANIZ ATION 08/31/2021 [facility] DATE CREATED AUTHOR AUTHOR'S ORGANIZ ATION 09/19/2023 [facility] ([place]) DATE CREATED AUTHOR AUTHOR'S ORGANIZ ATION 12/17/2023 [facility] DATE CREATED AUTHOR AUTHOR'S ORGANIZ ATION 07/30/2024 [facility] DATE CREATED AUTHOR AUTHOR'S ORGANIZ ATION 08/11/2024 [facility] DATE CREATED AUTHOR AUTHOR'S ORGANIZ ATION 08/25/2024 [facility] Reason for Visit (unrecogniz ed section and content) Reason For Visit Description Postop - 1st visit Preliminary reason f or visit data, not yet signed by the author as of ; post panniculectomy with f leur de lis and placement of wound vac on 11/03/2019 Reason Comments Bradycardia Altered Mental Status Specialty Diagnoses / Procedures Referred By Cynthia regan Referred To Contact Diagnoses Unresponsive episode Procedures / Bette Wilkes MD [address] [place] [address] [facility] [address] [place] [phone] Referral ID Status Reason Start Date Expiration Date Visits Re quested Visits Authorized [id number] 1 1 Reason Onset Date Comments Appointment 05/19/2023 Reason Comments Dizziness A little Specialty Diagnoses / Procedures Referred By Cynthia regan Referred To Contact Cardiology Diagnoses Syncope and collapse Procedures Cardiac event monitor (30 days) HI XTRNL ECG & 48 HR RECORDING HI EXTERNAL ECG SCANNING ANALYSIS REPORT HI XTRNL ECG CONTINUOUS RHYTHM W/I&R UP TO 48 HRS HI XTRNL MOBILE CV TELEMETRY W/I&REPORT 30 DAYS HI XTRNL MOBILE CV TELEMETRY W/TECHNICAL SUPPORT Marry Cooley, COPYMAN - SCHEDULE ANALYST [address] [place] [address] [address] Non-Invasive Cardiology [address] [place] [address] Referral ID Status Reason Start Date Expiration Date Visits Re quested Visits Authorized [id number] Closed 05/27/2023 05/21/2024 1 1 Reason Onset Date Comments Reschedule 06/09/2023 Reason Comments Seizures Per MES pt called 91 1 because she was not feeling well, witnessed seizure per EMS. Pt had tonic clonic like movements upon arrival. Pt became immediately alert and oriented after receiving IV ativan, no post ictal period noted. Pt has hx of DM, no seizure hx. EMS glucose was 205. Specialty Diagnoses / Procedures Referred By Contac t Referred To Contact Diagnoses Seizure-like activity (HCC) Procedures [id number]-like activity (HCC) Yany Kang MD [address] [place] [id number] [facility] [address] [address] [place] [phone] Referral ID Status Reason Start Date Expiration Date Visits Re quested Visits Authorized [id number] 1 1 Reason Comments New Patient Pt was seen at [facility] a bout 1 month ago for seizures. Pt has never had seizures before, is now on AED Reason Onset Date Comments Other 10/29/2023 EMU reminder toni l Specialty Diagnoses / Procedures Referred By Contac t Referred To Contact Diagnoses Unspecified convulsions (HCC) Conversion disorder with seizures or convulsions Convulsion (HCC) Procedures .. Abdulaziz Hensley MD [address] [place] [address] [facility] [address] [place] [address] Referral ID Status Reason Start Date Expiration Date Visits Re quested Visits Authorized [id number] 1 1 Care Team (unrecognized sect ion and content) Network Communications Engineer Relationship Specialty Start Date End Date Emma Harmon DO [address] [place] [address] PCP - General 01/17/19 Network Communications Engineer Relationship Specialty Start Date End Date Emma Harmon DO [address] [place] [address] PCP - General 01/17/19 Network Communications Engineer Relationship Specialty Start Date End Date Emma Harmon DO [address] [place] [address] PCP - General 01/17/19 Network Communications Engineer Relationship Specialty Start Date End Date Emma Harmon DO [address] [place] [address] PCP - General 01/17/19 Network Communications Engineer Relationship Specialty Start Date End Date Emma Harmon DO [address] [place] [address] PCP - General 01/17/19 Network Communications Engineer Relationship Specialty Start Date End Date Emma Harmon DO [address] [place] [address] PCP - General 01/17/19 Network Communications Engineer Relationship Specialty Start Date End Date Emma Harmon DO [address] [place] [address] PCP - General 01/17/19 Network Communications Engineer Relationship Specialty Start Date End Date Emma Harmon DO [address] [place] [address] PCP - General 01/17/19 Network Communications Engineer Relationship Specialty Start Date End Date Emma Harmon DO [address] [place] [address] PCP - General 01/17/19 Network Communications Engineer Relationship Specialty Start Date End Date Emma Harmon DO [address] [place] [address] PCP - General 01/17/19 Team Status: Active Member Role Status Dates Dr. Emma Harmon DO Primary Care Provider Active Team Status: Inactive Member Role Status Dates Dr. Kvng Pelaez MD Emergency Provider Active Sta rt: May 20, 2024 End: May 20, 2024 Dr. Emma Harmon DO Primary Care Provider Active Start: May 20, 2024 End: May 20, 2024 Team Status: Inactive Member Role Status Dates Dr. Kvng Pelaez MD Attending Provider Active Sta rt: May 20, 2024 End: May 20, 2024 Dr. Kvng Pelaez MD Emergency Provider Active Sta rt: May 20, 2024 End: May 20, 2024 Dr. Emma Harmon DO Primary Care Provider Active Start: May 20, 2024 End: May 20, 2024 Team Status: Inactive Member Role Status Dates Dr. Emma Harmon DO Primary Care Provider Active Start: June 05, 2024 End: June 05, 2024 Dr. Joseph Greene DO Emergency Provider Active Start: June 05, 2024 End: June 05, 2024 Team Status: Inactive Member Role Status Dates Dr. Emma Harmon DO Primary Care Provider Active Start: June 05, 2024 End: June 05, 2024 Dr. Joseph Greene DO Attending Provider Active Start: June 05, 2024 End: June 05, 2024 Dr. Joseph Greene DO Emergency Provider Active Start: June 05, 2024 End: June 05, 2024 Team Status: Inactive Member Role Status Dates Dr. Emma Harmon DO Primary Care Provider Active Start: August 17, 2024 End: August 17, 2024 Dr. Kvng Pelaez MD Emergency Provider Active Sta rt: August 17, 2024 End: August 17, 2024 Team Status: Active Member Role/Relationship Status Dates Dr. Emma Harmon DO Primary Care Provider Active Team Status: Inactive Member Role/Relationship Status Dates Dr. Emma Harmon DO Primary Care Provider Active Start: August 17, 2024 End: August 17, 2024 Dr. Kvng Pelaez MD Attending Provider Active Sta rt: August 17, 2024 End: August 17, 2024 Dr. Kvng Pelaez MD Emergency Provider Active Sta rt: August 17, 2024 End: August 17, 2024 Team Status: Active Member Role/Relationship Status Dates Dr. Emma Harmon DO Primary Care Provider Active Start: October 11, 2024 Dr. Wesly Diallo MD Emergency Provider Active S tart: October 11, 2024 Dr. Ramu Cornelius DO Admit Provider Active Start: October 11, 2024 Dr. Ramu Cornelius DO Attending Provider Active Start: October 11, 2024 Care Team (unrecognized sect ion and content) Care Team Personnel Name: Jean Carlos Garcia Clerk Domonique PT Position: P3 Scheduling - Labor Law Professor Advanced Member Role: Other Name: EMMA HARMON DO Position: P4 Physician - Primary Care Med Service: Active Provider Member Role: Primary Care Physician Address: Address: [address] [place] [address]- Care Team Related Persons Name: THERESA MCCANN Address: Home [address] [place], [place] [id number] Name: CALIN ROMERO Address: Home [address] [place], [place] [id number] Name: ARANDA, JAYLYN Address: Home [address] [place], [place] [id number] [place] Care Team Personnel Name: Jean Carlos Garcia Clerk Domonique PT Position: P3 Scheduling - Labor Law Professor Advanced Member Role: Other Name: EMMA HARMON DO Position: P4 Physician - Primary Care Med Service: Active Provider Member Role: Primary Care Physician Address: Address: [address] [place] [address]- Care Team Related Persons Name: THERESA MCCANN Address: Home [address] [place], [place] [id number] Name: CALIN ROMERO Address: Home [address] [place], [place] [id number] Name: JAYLYN ARANDA Address: Home [address] [place], [place] [id number] [place] Scheduled Active and Recently Administ ered Medications (unrecognized section and content) Medication Order 05/17/2023 05/18/2023 05/19/2023 aspirin EC tablet 81 mg 81 mg, Oral, Daily, First dose on Thu05/19/23 at 1230, Do not crush, chew, or split. 1305 (Given - Provider: Miriam Bean LPN) cholecalciferol (Vitamin D-3) tablet 2,000 Units 2,000 Units, Oral, Daily, First dose on Thu05/17/23 at 0800 0748 (Given - Provider: Betty Gupta RN) 1121 (Given - Provider: Marin Fuller RN) 0814 (Given - Provider: Miriam Bean LPN) cyanocobalamin (Vitamin B-12) tablet 1,000 mcg 1,000 mcg, Oral, Daily, First dose on 05/17/23 at 0800 0748 (Given - Provider: Betty Gupta RN) 1121 (Given - Provider: Marin Fuller RN) 0814 (Given - Provider: Miriam Bean LPN) docusate sodium (Colace) capsule 100 mg 100 mg, Oral, Daily, First dose on Thu05/18/23 at 1145 1145 (Not Given - Provider: Marin Fuller RN - Reason: Patient/family refused) 0814 (Given - Provider: Miriam Bean LPN) enoxaparin (Lovenox) syringe 40 mg 40 mg, SubCUTAneous, Every 24 hours scheduled (Daily), First dose on 05/17/23 at 0900, Indication of Use: Prophylaxis-DVT/PE, Indications: Prophylaxis of Venous Thromboembolism 0749 (Given - Provider: Betty Gupta RN) 0851 (Given - Provider: Marin Fuller RN) 0814 (Given - Provider: Miriam Bean LPN) ferrous sulfate tablet 325 mg 325 mg, Oral, Daily with breakfast, First dose on Thu05/17/23 at 0800 0748 (Given - Provider: Betyt Gupta RN) 0851 (Given - Provider: Marin Fuller RN) 0814 (Given - Provider: Miriam Bean LPN) levothyroxine (Synthroid, Levoxyl) tablet 100 mcg 100 mcg, Oral, Daily before breakfast, First dose on Thu05/19/23 at 0700 0608 (Given - Provider: Ramu York Jr., RN) levothyroxine (Synthroid, Levoxyl) tablet 88 mcg (CANCELED) 88 mcg, Oral, Daily before breakfast, First dose on Thu05/17/23 at 0700, Tube feeding (TF) interaction, obtain physician order to manage, recommend holding TF for 30 minutes before and after dose. 0748 (Given - Provider: Betty Gupta RN) 0615 (Given - Provider: Althea Potts RN) losartan (Cozaar) tablet 50 mg 50 mg, Oral, Daily, First dose on Thu05/17/23 at 0900 0749 (Given - Provider: Betty Gupta RN) 0851 (Given - Provider: Marin Fuller RN) 0814 (Given - Provider: Miriam Bean LPN) nitroglycerin (Nitrostat) SL tablet 0.8 mg (COMPLETED) 0.8 mg, SubLINGual, Once, On Thu05/19/23 at 0945, For 1 dose, ONCE for CTA Coronary, per protocol 0919 (Given - Provider: Sveta Kwon RN - Comment: Once for CTA Coronary, per protocol) sertraline (Zoloft) tablet 100 mg 100 mg, Oral, Daily, First dose on Thu05/18/23 at 1145 1308 (Given - Provider: Marin Fuller RN) 0814 (Given - Provider: Miriam Bean LPN) Continuous Medication Order 05/17/2023 05/18/2023 05/19/2023 sodium chloride 0.9 % infusion 100 mL/hr, IntraVENous, Continuous, Starting on Thu05/17/23 at 0305 0614 (New Bag - Provider: Becky Oates RN)0858 (Rate/Dose Verify - Provider: Betty Gupta RN)1147 (Rate/Dose Verify - Provider: Betty Gupta RN) 0148 (New Bag - Provider: Ramu York Jr., RN)1220 (New Bag - Provider: Miriam Bean LPN)1405 (Stopped - Provider: Miriam Bean LPN) PRN Medication Order 05/17/2023 05/18/2023 05/19/2023 acetaminophen (Tylenol) suppository 650 mg(Linked Group 1) 650 mg, Rectal, Every 6 hours PRN, mild pain (1-3), fever, For temp greater than 100.4 F (38 C), Starting on Thu05/17/23 at 0304, Administer if oral route cannot be used. Maximum dose of acetaminophen is 4000 mg from all sources in 24 hours. 0751 (See Alternative - Provider: Betty Gupta RN) 0615 (See Alternative - Provider: Althea Potts RN) 0620 (See Alternative - Provider: Ramu York Jr., RN) acetaminophen (Tylenol) tablet 650 mg(Linked Group 1) 650 mg, Oral, Every 6 hours PRN, mild pain (1-3), fever, For temp greater than 100.4 F (38 C), Starting on 05/17/23 at 0304, Maximum dose of acetaminophen is 4000 mg from all sources in 24 hours. 0751 (Given - Provider: Betty Gupta RN) 0615 (Given - Provider: Althea Potts RN) 0620 (Given - Provider: Ramu York Jr., JADON) iopamidol (Isovue-370) 76 % injection 75 mL (COMPLETED) 75 mL, IntraVENous, IMG once PRN, contrast, Starting on Thu05/19/23 at 0916, For 1 dose 0916 (Given - Provider: Keron Leigh, RT (R)(CT)) naloxone (Narcan) injection 0.4 mg 0.4 mg, IntraVENous, Every 5 min PRN, opioid reversal, respiratory depression, Starting on Thu05/17/23 at 1519, +++ For RR <10, pinpoint pupils, over sedation for opioid reversal - MUST notify weapons mechanic provider immediately after first dose, may give IM or SQ if no IV access +++ perflutren protein A microsphere (Optison) 3 mL in sodium chloride (PF) 0.9 % 10 mL IV syringe 0-10 mL, IntraVENous, IMG once PRN, other, Suboptimal echo image, Starting on 05/17/23 at 1337, For 1 dose, CV Procedural Medications, Administer via slow IVP for suboptimal echocardiogram enhancement. May administer as divided doses to reach optimal image enhancement polyethylene glycol (PEG) 3350 (Miralax) packet 17 g 17 g, Oral, Daily PRN, constipation, Starting on Thu05/17/23 at 0304, 1st line for treatment of constipation - give scheduled if no bowel movement in past 24 hours. traMADol (Ultram) tablet 50 mg 50 mg, Oral, Every 6 hours PRN, severe pain (7-10), Starting on 05/17/23 at 1507 1539 (Given - Provider: Marin Fuller RN)2149 (Given - Provider: Althea Potts RN) 1123 (Given - Provider: Marin Fuller RN)1940 (Given - Provider: Ramu York Jr., RN) 1005 (Given - Provider: Miriam Bean LPN) Linked Groups Order Group 1: acetaminophen (Tylenol) tablet 650 mgJump to med 650 mg, Oral, Every 6 hours PRN, mild pain (1-3), fever, For temp greater than 100.4 F (38 C), Starting on 05/17/23 at 0304, Maximum dose of acetaminophen is 4000 mg from all sources in 24 hours. Or acetaminophen (Tylenol) suppository 650 mgJump to med 650 mg, Rectal, Every 6 hours PRN, mild pain (1-3), fever, For temp greater than 100.4 F (38 C), Starting on 05/17/23 at 0304, Administer if oral route cannot be used. Maximum dose of acetaminophen is 4000 mg from all sources in 24 hours. Scheduled Medication Order 08/05/2023 08/06/2023 08/07/2023 aspirin EC tablet 81 mg 81 mg, Oral, Daily, First dose on Thu08/05/23 at 2009, Do not crush, chew, or split. 2037 (Given - Provider: Shonna Pham RN) 0916 (Given - Provider: Sara Sanchez, JADON) 0800 (Given - Provider: Tamera Riggins, RN) enoxaparin (Lovenox) syringe 40 mg 40 mg, SubCUTAneous, Every 24 hours scheduled (Daily), First dose on Thu08/05/23 at 2030, Indication of Use: Prophylaxis-DVT/PE, Indications: Prophylaxis of Venous Thromboembolism 2038 (Given - Provider: Shonna Pham RN) 0916 (Given - Provider: Sara Sanchez RN) 08 (Given - Provider: Tamera Riggins, RN) ferrous sulfate tablet 325 mg 325 mg, Oral, Daily with breakfast, First dose on Thu08/06/23 at 0800 0916 (Given - Provider: Sara Sanchez RN) 08 (Given - Provider: Tamera Riggins, RN) lactated ringers bolus 500 mL (COMPLETED) 500 mL, IntraVENous, at 500 mL/hr, Administer over 1 Hours, Once, On Thu08/05/23 at 2004, For 1 dose 2031 (New Bag - Provider: Shonna Pham RN)2131 (Stopped - Provider: Shonna Pham RN) levETIRAcetam (Keppra) 4,000 mg in sodium chloride 0.9 % 250 mL IVPB (COMPLETED) 4,000 mg, IntraVENous, at 1,000 mL/hr, Administer over 15 Minutes, Once, On Thu08/06/23 at 0000, For 1 dose, Do Not Refrigerate 0000 (New Bag - Provider: Darrell Garnica RN)0015 (Stopped - Provider: Darrell Garnica RN) levETIRAcetam (Keppra) tablet 500 mg 500 mg, Oral, 2 times daily, First dose on Thu08/07/23 at 2100, Do not crush or chew. levETIRAcetam in sodium chloride (Keppra) IVPB 500 mg (CANCELED) 500 mg, IntraVENous, Administer over 15 Minutes, 2 times daily, First dose on Thu08/06/23 at 0900 0916 (New Bag - Provider: Sara Sanchez RN)0931 (Stopped - Provider: Tamera Riggins, RN)2099 (New Bag - Provider: Darrell Garnica RN)2115 (Stopped - Provider: Darrell Nahun, RN) 0801 (New Bag - Provider: Tamera Riggins, RN)0816 (Stopped - Provider: Tamera Riggins, RN) levothyroxine (Synthroid, Levoxyl) tablet 100 mcg 100 mcg, Oral, Daily before breakfast, First dose on Thu08/06/23 at 0600 0655 (Given - Provider: Darrell Garnica, RN) 0643 (Given - Provider: Darrell Garnica RN) LORazepam (Ativan) injection 4 mg (COMPLETED) 4 mg, IntraVENous, Once, On Thu08/05/23 at 1820, For 1 dose, For IV doses dilute dose with 1ml NS. 181 (Given - Provider: Janki Jose, JADON) losartan (Cozaar) tablet 50 mg 50 mg, Oral, Daily, First dose on Thu08/05/23 at 2009 2037 (Given - Provider: Shonna Pham RN) 0914 (Given - Provider: Sara Sanchez, JADON) 0800 (Given - Provider: Tamera Riggins, JADON) rosuvastatin (Crestor) tablet 20 mg 20 mg, Oral, Daily, First dose on Thu08/05/23 at 2009 2037 (Given - Provider: Shonna Pham RN) 0915 (Given - Provider: Sara Sanchez, JADON) 0800 (Given - Provider: Tamera Riggins, JADON) sertraline (Zoloft) tablet 100 mg 100 mg, Oral, Daily, First dose on Thu08/05/23 at 2009 2037 (Given - Provider: Shonna Pham RN) 0915 (Given - Provider: Sara Sanchez, JADON) 0800 (Given - Provider: Tamera Riggins, JADON) sodium chloride 0.9 % bolus 1,000 mL (COMPLETED) 1,000 mL, IntraVENous, at 1,000 mL/hr, Administer over 1 Hours, Once, On Thu08/05/23 at 1820, For 1 dose 1823 (New Bag - Provider: Janki Jose RN)2018 (Stopped - Provider: Shonna Pham RN) Continuous Medication Order 08/05/2023 08/06/2023 08/07/2023 sodium chloride 0.9 % infusion (CANCELED) 100 mL/hr, IntraVENous, Continuous, Starting on Thu08/05/23 at 2030 2031 (New Bag - Provider: Shonna Pham, JADON) 0801 (New Bag - Provider: Tamera Riggins, JADON) PRN Medication Order 08/05/2023 08/06/2023 08/07/2023 hydrOXYzine pamoate (Vistaril) capsule 25 mg 25 mg, Oral, Every 8 hours PRN, anxiety, Starting on Prema 08/06/23 at 1546 1648 (Given - Provider: Tamera Riggins RN) 0838 (Given - Provider: Tamera Riggins RN) ibuprofen tablet 600 mg 600 mg, Oral, Every 6 hours PRN, mild pain (1-3), moderate pain (4-6), fever, headaches, Starting on Prema 08/06/23 at 0849 0955 (Given - Provider: Tamera Riggins, JADON)1648 (Given - Provider: Tamera Riggins, JADON)2300 (Given - Provider: Darrell Garnica, JADON) 0838 (Given - Provider: Tamera Riggins RN) iopamidol (Isovue-370) 76 % injection 75 mL (COMPLETED) 75 mL, IntraVENous, IMG once PRN, contrast, Starting on Thu08/05/23 at 1851, For 1 dose 1850 (Given - Provider: Nany Sanchez, Phonograph Cartridge [employer]sembler) melatonin tablet 3 mg 3 mg, Oral, Nightly PRN, sleep, Starting on Thu08/05/23 at 2027 2300 (Given - Provider: Darrell Garnica, JADON) ondansetron (Zofran) injection 4 mg(Linked Group 1) 4 mg, IntraVENous, Every 6 hours PRN, nausea, vomiting, Starting on Thu08/05/23 at 2026, 1st Line. Give IV if patient is unable to take orally. If inadequate response within 60 minutes, proceed to next-line agent or contact provider if no further options ordered. ondansetron ODT (Zofran-ODT) disintegrating tablet 4 mg(Linked Group 1) 4 mg, Oral, Every 8 hours PRN, nausea, vomiting, Starting on Thu08/05/23 at 2026, 1st Line. If inadequate response within 60 minutes, proceed to next-line agent or contact provider if no further options ordered. Patient should allow tablet to dissolve on tongue. Do not remove from blister pack until just before administering. polyethylene glycol (PEG) 3350 (Miralax) packet 17 g 17 g, Oral, Daily PRN, constipation, Starting on Thu08/05/23 at 2026, 1st line for treatment of constipation - give scheduled if no bowel movement in past 24 hours. zolpidem (Ambien) tablet 5 mg 5 mg, Oral, Nightly PRN, insomnia, second line, Starting on Thu08/06/23 at 1548 Linked Groups Order Group 1: ondansetron ODT (Zofran-ODT) disintegrating tablet 4 mgJump to med 4 mg, Oral, Every 8 hours PRN, nausea, vomiting, Starting on Thu08/05/23 at 2026, 1st Line. If inadequate response within 60 minutes, proceed to next-line agent or contact provider if no further options ordered. Patient should allow tablet to dissolve on tongue. Do not remove from blister pack until just before administering. Or ondansetron (Zofran) injection 4 mgJump to med 4 mg, IntraVENous, Every 6 hours PRN, nausea, vomiting, Starting on Thu08/05/23 at 2026, 1st Line. Give IV if patient is unable to take orally. If inadequate response within 60 minutes, proceed to next-line agent or contact provider if no further options ordered. Scheduled Medication Order 10/30/2023 10/31/2023 11/01/2023 aspirin EC tablet 81 mg 81 mg, Oral, Daily, First dose on Thu10/30/23 at 1415, Do not crush, chew, or split. 1607 (Given - Provider: Katie Patel RN) 0924 (Given - Provider: Miriam Sands, JADON) 0920 (Given - Provider: Miriam Sands, RN) cholecalciferol (Vitamin D-3) tablet 2,000 Units 2,000 Units, Oral, Daily, First dose on Thu10/30/23 at 1415 1605 (Given - Provider: Katie Patel RN) 0924 (Given - Provider: Miriam Sands, JADON) 0921 (Given - Provider: Miriam Sands, RN) cyanocobalamin (Vitamin B-12) tablet 1,000 mcg 1,000 mcg, Oral, Daily, First dose on Thu10/30/23 at 1415 1607 (Given - Provider: Katie Patel RN) 0924 (Given - Provider: Miriam Sands RN) 0921 (Given - Provider: Miriam Sands RN) enoxaparin (Lovenox) syringe 40 mg 40 mg, SubCUTAneous, Every 24 hours scheduled (Daily), First dose on Thu10/30/23 at 1415, Indication of Use: Prophylaxis-DVT/PE, Indications: Prophylaxis of Venous Thromboembolism 1420 (Given - Provider: Katie Patel RN) 0924 (Given - Provider: Miriam Sands RN) 0927 (Given - Provider: Miriam Sands RN) ferrous sulfate tablet 325 mg 325 mg, Oral, Daily with breakfast, First dose on Thu10/31/23 at 0800 0923 (Given - Provider: Miriam Sands RN) 0921 (Given - Provider: Miriam Sands RN) ibuprofen suspension 400 mg (COMPLETED)(Linked Group 1) 400 mg, Oral, Once, On Thu10/30/23 at 2215, For 1 dose, Give oral liquid if patient prefers or per feeding tube if present. Shake well before giving. If inadequate response within 60 minutes, proceed to next-line agent for same PRN reason or contact provider if no further options ordered. 0742 (Given - Provider: Keely Nieves RN - Comment: Patient sleeping, not showing any signs or symptoms of pain) Insulin Lispro (Humalog) injection 0-6 Units(Linked Group 2) 0-6 Units, SubCUTAneous, 3 times daily with meals, First dose on Thu10/30/23 at 1800, Low Dose Correction Algorithm Glucose: Dose: LESS than 139 No Insulin 140-199 1 Unit 200-249 2 Units 250-299 3 Units 300-349 4 Units 350-400 5 Units Above 400 6 Units 1802 (Given - Provider: Katie Patel RN) 0800 (Not Given - Provider: Miriam Sands RN - Reason: Order parameters not met)1248 (Not Given - Provider: Miriam Sands RN - Reason: Order parameters not met)1753 (Given - Provider: Miriam Sands RN) 0800 (Not Given - Provider: Miriam Sands RN - Reason: Order parameters not met)1200 (Not Given - Provider: Miriam Sands RN - Reason: Order parameters not met) Insulin Lispro (Humalog) injection 0-6 Units(Linked Group 2) 0-6 Units, SubCUTAneous, Nightly, First dose on Thu10/30/23 at 2100, If continuous tube feedings/TPN/NPO, give correction dose based on result, no reduction in dose. If eating or bolus tube feeding: Low Dose Correction Algorithm Glucose: Dose: LESS than 139 No Insulin 140-199 1 Unit 200-249 2 Units 250-299 3 Units 300-349 4 Units 350-400 5 Units Above 400 6 Units 2100 (Not Given - Provider: Keely Nieves RN - Reason: Order parameters not met - Comment: Patient Blood glucose 56) 2100 (Not Given - Provider: Addie Huntley RN - Reason: Order parameters not met) levETIRAcetam (Keppra) tablet 500 mg 500 mg, Oral, 2 times daily, First dose on Thu10/30/23 at 1415, Do not crush or chew. 1420 (Given - Provider: Katie Patel RN)2113 (Given - Provider: Keely Nieves RN) 0923 (Given - Provider: Miriam Sands, JADON)2119 (Given - Provider: Addie Huntley, JADON) 0920 (Given - Provider: Miriam Sands, JADON) levothyroxine (Synthroid, Levoxyl) tablet 100 mcg 100 mcg, Oral, Daily before breakfast, First dose on Thu10/31/23 at 0600 0749 (Given - Provider: Keely Nieves RN) 0544 (Given - Provider: Addie Huntley, JADON) losartan (Cozaar) tablet 50 mg 50 mg, Oral, Daily, First dose on Thu10/30/23 at 1415 1611 (Given - Provider: Katie Patel RN) 0924 (Given - Provider: Miriam Sands, JADON) 0921 (Given - Provider: Miriam Sands, JADON) prochlorperazine (Compazine) suppository 25 mg (COMPLETED) 25 mg, Rectal, Once, On 11/01/23 at 0015, For 1 dose 0058 (Given - Provider: Addie Huntley RN) rosuvastatin (Crestor) tablet 20 mg 20 mg, Oral, Daily, First dose on Thu10/30/23 at 1415 1606 (Given - Provider: Katie Patel RN) 0923 (Given - Provider: Miriam Sands, JADON) 0920 (Given - Provider: Miriam Sands, JADON) sertraline (Zoloft) tablet 100 mg 100 mg, Oral, Daily, First dose on Thu10/30/23 at 1415 1608 (Given - Provider: Katie Patel RN) 0924 (Given - Provider: Miriam Sands, JADON) 0921 (Given - Provider: Miriam Sands RN) sodium chloride 0.9% (NS) flush 10 mL 10 mL, IntraVENous, Every 12 hours scheduled (2 times per day), First dose on Thu10/30/23 at 2100 2118 (Given - Provider: Keely Nieves RN) 0924 (Given - Provider: Miriam Sands, JADON)212 (Given - Provider: Addie Huntley, JADON) 09 (Given - Provider: Miriam Sands, JADON) traMADol (Ultram) tablet 50 mg (COMPLETED) 50 mg, Oral, Once, On Thu10/31/23 at 1845, For 1 dose 2118 (Given - Provider: Addie Huntley RN) PRN Medication Order 10/30/2023 10/31/2023 11/01/2023 acetaminophen (Tylenol) suppository 650 mg(Linked Group 3) 650 mg, Rectal, Every 6 hours PRN, mild pain (1-3), Fever GREATER than 100.4 F (38 C), Starting on Thu10/30/23 at 1411, 2nd line PRN mild pain. Administer if oral route cannot be used. acetaminophen (Tylenol) tablet 650 mg(Linked Group 3) 650 mg, Oral, Every 6 hours PRN, mild pain (1-3), Fever GREATER than 100.4 F (38 C), Starting on Thu10/30/23 at 1411, 2nd line PRN mild pain. Maximum dose of acetaminophen is 4000 mg from all sources in 24 hours. dextrose 5 % infusion 100 mL/hr, IntraVENous, PRN, Blood sugar less than 70mg/dL, Starting on Thu10/30/23 at 1754, Start infusion following administration of dextrose 50% or glucagon. dextrose 50 % solution 12.5 g 12.5 g, IntraVENous, PRN, low blood sugar, Blood glucose less than 70 mg/dL and patient NOT ALERT or NPO., Starting on Thu10/30/23 at 1754, If patient does not respond within 5 minutes, repeat dose x1. Start D5W at 100 mL/hour until ordering provider can be reached. Repeat blood glucose in 15 minutes. If blood glucose is less than 70 mg/dL, repeat treatment and recheck blood glucose in 15 minutes x2. If using Glucostabilizer, dose as instructed per system. glucagon (human recombinant) injection 1 mg 1 mg, IntraMUSCular, PRN, low blood sugar, Blood glucose less than 70 mg/dL and patient NOT ALERT or NPO and does not have IV access., Starting on Thu10/30/23 at 1754, After administration, attempt intravenous access and start D5W at 100 mL/hr. Repeat blood glucose in 15 minutes x2 and notify provider. glucose oral gel 15 g 15 g, Oral, As needed, low blood sugar, Starting on Thu10/30/23 at 1754, If blood glucose less than 50 mg/dL and patient ALERT and NOT NPO, give 2 tubes glucose gel. If blood glucose less than 70 mg/dL and patient ALERT and NOT NPO, give 1 tube glucose gel. Repeat blood glucose in 15 minutes. If blood glucose is less than 70 mg/dL, repeat treatment and recheck blood glucose in 15 minutes x2 and notify provider. ibuprofen suspension 400 mg(Linked Group 4) 400 mg, Oral, Every 8 hours PRN, mild pain (1-3), Starting on 10/31/23 at 1523, Give oral liquid if patient prefers or per feeding tube if present. Shake well before giving. If inadequate response within 60 minutes, proceed to next-line agent for same PRN reason or contact provider if no further options ordered. 1533 (See Alternative - Provider: Miriam Sands RN) 0921 (See Alternative - Provider: Miriam Sands RN) ibuprofen tablet 400 mg(Linked Group 4) 400 mg, Oral, Every 8 hours PRN, mild pain (1-3), Starting on 10/31/23 at 1523, If inadequate response within 60 minutes, proceed to next-line agent for same PRN reason or contact provider if no further options ordered. 1533 (Given - Provider: Miriam Sands, RN) 0921 (Given - Provider: Miriam Sands, JADON) ondansetron (Zofran) injection 4 mg(Linked Group 5) 4 mg, IntraVENous, Every 6 hours PRN, nausea, vomiting, Starting on Thu10/30/23 at 1411, 1st Line. Give IV if patient is unable to take orally. If inadequate response within 60 minutes, proceed to next-line agent or contact provider if no further options ordered. 1602 (Given - Provider: Katie Patel RN) 0923 (Given - Provider: Miriam Sands, JADON)1755 (Given - Provider: Miriam Sands, JADON) polyethylene glycol (PEG) 3350 (Miralax) packet 17 g 17 g, Oral, Daily PRN, constipation, Starting on Thu10/30/23 at 1411, 1st line for treatment of constipation - give scheduled if no bowel movement in past 24 hours. sodium chloride 0.9 % infusion 5-250 mL/hr, IntraVENous, PRN, if patient receiving piggyback infusions and maintenance fluids are not ordered OR KVO fluids to protect IV site / prevent frequent line interruptions/ long duration, Starting on Thu10/30/23 at 1411, For piggyback infusion, administer at same rate as piggyback for a total of 25 mL. Enter 25 mL into dose field and piggyback rate into rate field of order. If piggyback is infusing at a rate less than 100 mL/hr, enter 25 mL into dose field and 100 mL/hr into rate field of order. For KVO fluids, enter rate of 20 mL/hr or less into rate field of order. sodium chloride 0.9% (NS) flush 10 mL 10 mL, IntraVENous, PRN, line care, Starting on Thu10/30/23 at 1411, After every IV line use Linked Groups Order Group 1: ibuprofen tablet 400 mg (COMPLETED) 400 mg, Oral, Once, On Thu10/30/23 at 2215, For 1 dose, If inadequate response within 60 minutes, proceed to next-line agent for same PRN reason or contact provider if no further options ordered. Or ibuprofen suspension 400 mg (COMPLETED)Jump to med 400 mg, Oral, Once, On Thu10/30/23 at 2215, For 1 dose, Give oral liquid if patient prefers or per feeding tube if present. Shake well before giving. If inadequate response within 60 minutes, proceed to next-line agent for same PRN reason or contact provider if no further options ordered. Group 2: Insulin Lispro (Humalog) injection 0-6 UnitsJump to med 0-6 Units, SubCUTAneous, 3 times daily with meals, First dose on Thu10/30/23 at 1800, Low Dose Correction Algorithm Glucose: Dose: LESS than 139 No Insulin 140- 199 1 Unit 200-249 2 Units 250-299 3 Units 300-349 4 Units 350-400 5 Units Above 400 6 Units And Insulin Lispro (Humalog) injection 0-6 UnitsJump to med 0-6 Units, SubCUTAneous, Nightly, First dose on Thu10/30/23 at 2100, If continuous tube feedings/TPN/NPO, give correction dose based on result, no reduction in dose. If eating or bolus tube feeding: Low Dose Correction Algorithm Glucose: Dose: LESS than 139 No Insulin 140-199 1 Unit 200-249 2 Units 250-299 3 Units 300-349 4 Units 350-400 5 Units Above 400 6 Units Group 3: acetaminophen (Tylenol) tablet 650 mgJump to med 650 mg, Oral, Every 6 hours PRN, mild pain (1-3), Fever GREATER than 100.4 F (38 C), Starting on Thu10/30/23 at 1411, 2nd line PRN mild pain. Maximum dose of acetaminophen is 4000 mg from all sources in 24 hours. Or acetaminophen (Tylenol) suppository 650 mgJump to med 650 mg, Rectal, Every 6 hours PRN, mild pain (1-3), Fever GREATER than 100.4 F (38 C), Starting on Thu10/30/23 at 1411, 2nd line PRN mild pain. Administer if oral route cannot be used. Group 4: ibuprofen tablet 400 mgJump to med 400 mg, Oral, Every 8 hours PRN, mild pain (1-3), Starting on 10/31/23 at 1523, If inadequate response within 60 minutes, proceed to next-line agent for same PRN reason or contact provider if no further options ordered. Or ibuprofen suspension 400 mgJump to med 400 mg, Oral, Every 8 hours PRN, mild pain (1-3), Starting on 10/31/23 at 1523, Give oral liquid if patient prefers or per feeding tube if present. Shake well before giving. If inadequate response within 60 minutes, proceed to next-line agent for same PRN reason or contact provider if no further options ordered. Group 5: ondansetron ODT (Zofran-ODT) disintegrating tablet 4 mg (CANCELED) 4 mg, Oral, Every 8 hours PRN, nausea, vomiting, Starting on 10/30/23 at 1411, 1st Line. If inadequate response within 60 minutes, proceed to next-line agent or contact provider if no further options ordered. Patient should allow tablet to dissolve on tongue. Do not remove from blister pack until just before administering. Or ondansetron (Zofran) injection 4 mgJump to med 4 mg, IntraVENous, Every 6 hours PRN, nausea, vomiting, Starting on 10/30/23 at 1411, 1st Line. Give IV if patient is unable to take orally. If inadequate response within 60 minutes, proceed to next-line agent or contact provider if no further options ordered. Goals (unrecognized section and content) Goals may be documented in a n alternate section FOR RECORDS PERTAINING TO PATIENTS WHO ARE OR HAVE BEEN ENROLLED IN A CHEMICAL DEPENDENCY/SUBSTANCEABUSE PROGRAM, SOME INFORMATION MAY BE OMITTED. This clinical summary was aggregated from multiple sources. Caution should be exercised in using it in the provision of clinical care. This summary normalizes information from multiple sources, and as a consequence, information in this document may materially change the coding, format and clinical context of patient data. In addition, data may be omitted in some cases. CLINICAL DECISIONS SHOULD BE BASED ON THE PRIMARY CLINICAL RECORDS. [email or web address] provides no warranty or guarantee of the accuracy or completeness of information in this document.
[2024-10-11 22:16] LABS: Troponin T High Sens 4 HR 9 ng/L (<=14)
[2024-10-11] MEDS: 0.9% Saline Lock 10 ML Syringe IV (22:54)
[2024-10-11] MEDS: Pantoprazole Sodium 40 MG in 0.9% Normal Saline (100mL MB+) 100 ML 330 MG IV (22:57)
[2024-10-11] MEDS: hydrOXYzine PAM 25 MG Capsule PO (23:20)
[2024-10-11] MEDS: KCL 20MEQ in 0.9% NS 20 MEQ/1,000 ML IV.SOLN. 125 MEQ IV (23:23)
[2024-10-11] MEDS: Potassium Chloride Oral Tablet 20 MEQ 60 MEQ PO (23:29)
[2024-10-11] MEDS: Senna Tablet 2 TABLET PO (23:31)
[2024-10-12] VITALS (7 sets, daily range): BP systolic 140–155; BP diastolic 73–85; PULSE 40–51; RESP 16–18; TEMP 36.2–37; O2SAT 91–100; BMI 30.9
[2024-10-12] MEDS: metroNIDAZOLE 500 MG/100 ML BAG 100 MG IV ×3 (05:52→20:47)
[2024-10-12] MEDS: 0.9% Saline Lock 10 ML Syringe IV ×4 (05:52→20:50)
[2024-10-12] MEDS: KCL 20MEQ in 0.9% NS 20 MEQ/1,000 ML IV.SOLN. 125 MEQ IV (06:37)
[2024-10-12 06:47] LABS: Hematocrit 36.9 % (37-47); Hemoglobin 12.3 g/dL (12.0-15.0); Immature Granulocytes Count 0.010 X10^3/uL (0.0-0.0); Mean Corp Hgb Conc 33.3 g/dL (32-36); Mean Corpuscular Volume 89.3 fL (81-99); Mean Platelet Vol. 10.7 fl (6.2-12.0); NRBC Flagged by Analyzer 0 % (0-5); Platelet Count 218 K/mm3 (150-450); RBC Distribution Width CV 14.2 % (11.6-14.6); RBC Distribution Width SD 46.5 fl (35.1-43.9); Red Blood Count 4.13 M/mm3 (4.2-5.4); White Blood Count 5.7 K/mm3 (4.4-11.0)
[2024-10-12 07:59] LABS: AST(SGOT) 32 U/L (<=31); Alanine Aminotransfer ALT/SGPT 24 U/L (<=34); Albumin, Serum 3.7 g/dL (3.5-5.0); Alkaline Phosphatase 112 U/L (35-104); Anion Gap 8 (5-15); BUN 10 mg/dL (4-19); BUN/Creat Ratio 21.2 RATIO (10-20); Calcium,Total 8.4 mg/dL (7.6-11.0); Carbon Dioxide 23.3 mmol/L (21.0-32.0); Chloride 112 mmol/L (98-108); Estimated Creatinine Clearance 123.66 ml/min (50-250); Globulin 2.3 g/dL (2.2-4.2); Glucose 76 mg/dL (70-99); Potassium 3.9 mmol/L (3.3-5.1)
--- NOTE | 2024-10-12 08:49 | EX.PCM.CON.G ---
HPI Consult Data Date of Consult: 10/12/24 HPI Narrative Reason for Consultation: abdominal pain HPI Narrative: 59y/o female presented to the ED on 10/11/2024 with bradycardia (40's) and complaints of chest/abdominal pain with syncopal episode. PMH is significant for HTN, hypothyroidism, DM-II, Owen-en-Y (2022), CCX, spinal fusion, hysterectomy. Labs in ED revealed WBC 7.2, HGB 11.9, K+ 3.1, ALP 120, Tbili 0.20, AST and ALT WNL, TSH 4.3310, Lipase 29, Tropinin x2 negative. UA revealing for elevated protien (30), leuk esterase (100), negative for nitrite, CT A&P revealing for probable mild/early acute diverticulitis involving the descending colon, non-obstructive left renal calculi, diffuse hepatic steatosis, stable 1.5cm pancreatic head cyst. She was started on PO Cipro and Flagyl for diverticulitis --> presently on IV Metronidazole 500mg TID and Ceftriaxon 1g Q24h - witnessed syncopal episode at home -> yesterday around 4pm - lives with and son, does not work outside the home - continues to c/o chest pain 09/08 - intermittent lower mid abdominal pain, radiates out across lower abdomen x1 week, improved since admission - frequent watery diarrhea 3-4x a day, urgency, fecal incontinence, nocturnal episodes of incontinence x1-2 weeks - denies any recent travel or ATB use, reports only new medication is Gabapentin which she started 3d ago - BRBPR and sharp rectal pain x1-2 weeks with BM, on tissue and can color water red -- prior to onset of diarrhea she reports she was having 1 normal formed stool daily - c/o N/V, early satiety and belching x1 month, emesis is phlegm or food, intermittent - denies taking any antiemetics or PPI at home COLONOSCOPY 01/20/2024 (Dr. Brooks) benign cecal polypoid fragment, otherwise unremarkable - denies any family h/o colon CA - denies any personal h/o diverticulitis PANC Cyst --> stable since August 2023, no ductal dilation - denies any family h/o pancreatic CA - denies any h/o pancreatitis - denies any h/o smoking - denies any EtOH use [facility] Medical History Depression Anxiety Hypertension Hyperthyroidism Home Medications ?Medication ?Instructions ?Recorded ?Last Taken ?Type metformin 1,000 mg 24 hr 1,000 mg PO DAILY 10/08/15 10/11/24 History tablet,extended release (gastric reten.) dicyclomine 20 mg tablet 20 mg PO 4X/DAY PRN PRN abdominal 06/05/24 Unknown History pain hydroxyzine HCl 25 mg tablet 25 mg PO PRN 06/05/24 Unknown History levetiracetam 500 mg tablet 500 mg PO BID 06/05/24 10/11/24 History levothyroxine 112 mcg tablet 112 mcg PO DAILY 06/05/24 10/11/24 History losartan 25 mg tablet 25 mg PO DAILY 06/05/24 10/11/24 History olanzapine 10 mg tablet 10 mg PO DAILY 06/05/24 Unknown History ramelteon 8 mg tablet 8 mg PO QHS 06/05/24 10/10/24 History rosuvastatin 20 mg tablet 20 mg PO QHS 06/05/24 10/10/24 History sertraline 100 mg tablet 150 mg PO QHS 06/05/24 10/10/24 History zolpidem 5 mg tablet 5 mg PO QHS PRN PRN insomnia 06/05/24 Unknown History ferrous sulfate 325 mg (65 mg 325 mg PO BID 08/17/24 10/11/24 History iron) tablet gabapentin 300 mg capsule 300 mg PO TID 08/17/24 10/11/24 History cholecalciferol (vitamin D3) 50 100 mcg PO DAILY 10/11/24 10/11/24 History mcg (2,000 unit) capsule docusate sodium 100 mg capsule 100 mg PO BID 10/11/24 10/11/24 History sennosides 8.6 mg tablet (Alfreda-johana) 17.2 mg PO QHS 10/11/24 10/10/24 History tizanidine 4 mg tablet 4 mg PO Q8H PRN PRN muscle spasm 10/11/24 Unknown History Allergy/AdvReac Type Severity Reaction Status Date / Time diphenhydramine (From Allergy Anaphylaxis Verified 10/11/24 16:07 Benadryl) morphine Allergy Anaphylaxis Verified 10/11/24 16:07 vancomycin Allergy Anaphylaxis Verified 10/11/24 16:07 Family History no significant family his Surgical History H/O spinal fusion H/O hernia repair Social History (Updated 10/12/24 @ 09:32 by Miriam Whiteside NP-[facility]) household members: spouse and other details: son history of recent travel: No Smoking Status: Never smoker alcohol intake: never substance use type: does not use do you feel safe at home: Yes ROS Constitutional Constitutional: Reports as per HPI Gastrointestinal Gastrointestinal: Reports abdominal pain, belching, change in bowel habits, change in stool character, diarrhea, dyspepsia, early satiety, fecal incontinence, nausea, rectal bleeding and vomiting Musculoskeletal Musculoskeletal: Denies abnormal gait, joint pain, joint stiffness, joint swelling or muscle weakness Integumentary Integumentary: Denies change in pigmentation, jaundice or unusual bruising Physical Exam Const no apparent distress and average body habitus General Appearance: well developed Orientation / Consciousness: oriented to person, oriented to place and oriented to time Neck General: normal visual inspection Resp Effort and Inspection: able to speak in complete sentences and symmetric chest movement Auscultation: clear to auscultation bilaterally Cardio regular rhythm Rate: bradycardia Heart Sounds: S1 normal and S2 normal GI GI Narrative: ABD is soft, non-distended, mild RUQ and LLQ pain with palpation, BS+ x4 normoactive, no ascites, external rectal exam revealing for skin tag at 11 o'clock otherwise unremarkable Medical Records Data Attestation: I reviewed the patient's medical records Lab / Micro Data Attestation: I reviewed the patient's lab results. 10/12/24 06:33 10/12/24 06:33 Labs: Laboratory Results - last 24 hr 10/11/24 16:14: WBC 7.2, RBC 4.02 L, Hgb 11.9 L, Hct 34.8 L, MCV 86.6, MCH 29.6, MCHC 34.2, RDW Std Deviation 44.6 H, RDW Coeff of Bobby 14.1, Plt Count 248, MPV 11.0, Immature Gran % (Auto) 0.300, Neut % (Auto) 52.9, Lymph % (Auto) 37.3, [place] % (Auto) 6.6, Eos % (Auto) 2.2, Baso % (Auto) 0.7, Absolute Neuts (auto) 3.8, Absolute Lymphs (auto) 2.70, Nucleated RBC % 0, Sodium 141, Potassium 3.1 L, Chloride 106, Carbon Dioxide 19.8 L, Anion Gap 15, BUN 12, Creatinine 0.74, Estim Creat Clear Calc 80.25, Est GFR (MDRD) Non-Af 93, BUN/Creatinine Ratio 15.7, Glucose 87, Calcium 8.8, Total Bilirubin 0.20, Direct Bilirubin 0.09, AST 32, ALT 25, Alkaline Phosphatase 120 H, Troponin T High Sens 8 D, Total Protein 6.6, Albumin 4.0, Globulin 2.6, Lipase 29 10/11/24 17:15: Urine Color Straw, Urine Clarity Clear, Urine pH 6.5, Ur Specific [place] 1.010, Urine Protein 30 H, Urine Glucose (UA) Normal, Urine Ketones Negative, Urine Occult Blood Negative, Urine Nitrite Negative, Urine Bilirubin Negative, Urine Urobilinogen Normal, Ur Leukocyte Esterase 100 H, Urine RBC 0-5 SEEN, Urine WBC 5-10 SEEN, Ur Squamous Epith Cells 0-5 SEEN, Urine Bacteria 0 SEEN, Urine Mucus 0 SEEN 10/11/24 18:20: Magnesium 2.1, Troponin T Hi Sens 2 Hr 9, NT pro BNP II 497, TSH 4.310 H, Free T4 1.00, Free T3 pg/dL 2.8 10/11/24 21:39: Troponin T Hi Sens 4Hr 9 10/11/24 23:34: POC Glucose 100 10/12/24 06:05: POC Glucose 77 10/12/24 06:33: WBC 5.7, RBC 4.13 L, Hgb 12.3, Hct 36.9 L, MCV 89.3, MCH 29.8, MCHC 33.3, RDW Std Deviation 46.5 H, RDW Coeff of Bobby 14.2, Plt Count 218, MPV 10.7, Immature Gran % (Auto) 0.200, Neut % (Auto) 50.2, Lymph % (Auto) 38.8, [place] % (Auto) 6.9, Eos % (Auto) 3.2, Baso % (Auto) 0.7, Absolute Neuts (auto) 2.9, Absolute Lymphs (auto) 2.21, Nucleated RBC % 0, Sodium 144, Potassium 3.9, Chloride 112 H, Carbon Dioxide 23.3, Anion Gap 8, BUN 10, Creatinine 0.47 L, Estim Creat Clear Calc 123.66, Est GFR (MDRD) Non-Af 110, BUN/Creatinine Ratio 21.2 H, Glucose 76, Calcium 8.4, Phosphorus 4.1, Total Bilirubin 0.26, AST 32, ALT 24, Alkaline Phosphatase 112 H, Total Protein 6.0, Albumin 3.7, Globulin 2.3, Albumin/Globulin Ratio 1.6 Rhythm Strip Rhythm Strip: Sinus bradycardia Rate: 37 Ectopy: None Imaging Radiology Impression Abdomen/Pelvis CT 10/11/24 17:05 IMPRESSION: 1. Probable mild/early diverticulitis focally involving the descending colon. 2. Small nonobstructive left renal stone. No hydroureteronephrosis. 3. Diffuse hepatic steatosis. 4. Unchanged 1.5 cm benign-appearing cyst in the pancreatic head/neck. 5. Chronic and postoperative ancillary findings as described above. Reading Location: [facility] Brain CT 10/11/24 17:05 IMPRESSION: No acute intracranial abnormality. Mild generalized brain parenchymal volume loss and chronic microangiopathic changes, which appears somewhat advanced for patient's age. Reading Location: [facility] Chest X-Ray 10/11/24 18:13 IMPRESSION: NO SIGNIFICANT CHANGE SINCE THE PRIOR EXAM. Reading Location: [facility] Assessment & Plan Assessment/Plan (1) Acute diverticulitis: PLAN: CT 10/11/2024 Probable mild/early diverticulitis focally involving the descending colon. Continue IV metronidazole and ceftriaxone (2) Diarrhea: PLAN: - onset 1-2 weeks ago - 3-4x a day, watery, urgent, incontinent, episodes of nocturnal stools - denies any recent travel or ATB use - denies any new medications prior to onset of diarrhea - previously with 1 formed stool daily - Stool cultures ordered (3) Hypokalemia: PLAN: - 3.1 - possibly secondary to GI losses (diarrhea) - IV NS with KCL (4) Rectal bleeding: PLAN: - external rectal exam negative - HGB 11.9 -> 12.3 - Stool cultures ordered (5) Pancreatic cyst: PLAN: - Unchanged 1.5 cm benign-appearing cyst in the pancreatic head/neck. No ductal dilation. - ALP presently 120 (11/30/2023 109, 06/05/2024 110) - AST/ALT, Tbili WNL - Lipase WNL - stable since August 2023 per [facility] - denies any h/o pancreatitis - denies any family h/o pancreatic CA - denies any EtOH use - denies any h/o tobacco use - denies any weight loss (6) Hepatic steatosis: PLAN: - AST/ALT WNL - ALP presently 120 (11/30/2023 109, 06/05/2024 110) - Follow-up with GI as out-patient PLAN: Plan 59y/o female with PMH of HTN, hypothyroidism, DM-II, Owen-en-Y, CCX, spinal fusion and hysterectomy presented to the ED on 10/11/2024 with chest pain, bradycardia in the 40's, and a witnessed syncopal episode at home. She was also experiencing lower mid abdominal pain, frequent watery diarrhea with urgency, incontinence, and nocturnal episodes for 1-2 weeks, along with intermittent rectal bleeding and sharp rectal pain with bowel movements. Prior to onset, bowel habits were one formed stool daily. CT A&P revealed probable mild/early diverticulitis involving the descending colon and stable 1.5cm pancreatic head cyst. Colonoscopy in January 2024 revealed benign polypoid tissue. Abdominal pain has improved on IV ceftriaxone and metronidazole. Given recent onset of diarrhea and rectal bleeding, stool studies have been ordered.
[2024-10-12] MEDS: Pantoprazole Sodium 40 MG in 0.9% Normal Saline (100mL MB+) 100 ML 330 MG IV (09:12)
--- NOTE | 2024-10-12 09:14 | PCM.CONS.C ---
Assessment & Plan Assessment/Plan (1) Bradycardia, sinus: PLAN: Patient has a history of significant sinus bradycardia documented back in July 2024. At that time she was having what appeared to be orthostatic hypotension that resulted in syncope and near syncope. The patient was felt to be dehydrated she was treated with IV fluids in the emergency department and had no recurrence of her symptoms until yesterday. She did have a warning prodrome that allowed her to walk down the [address] to her son's room and sit in the chair before she passed out. The patient is not on any significantly rate modulating drugs. She does have a history of hypothyroidism the TSH is slightly elevated at 4.3. She is on replacement therapy. When appropriate the patient should be up and ambulated in the halls. A telemetry strip should be run to document her chronotropic response to activity. If her heart rate does not go up appropriately then further evaluation may be indicated. (2) Syncope: QUALIFIERS: Syncope type: unspecified Qualified Code(s): R55 - Syncope and collapse PLAN: Patient's syncope historically had been felt to be orthostatic in etiology. This did tend to occur when she change position she had up to 18 episodes over several weeks prior to the end of July 2024. Since being hydrated in the emergency department in July and monitoring her oral intake better she had not had any problems until yesterday. The patient continues to complain of chronic diarrhea that happens daily and is uncontrollable. She also does not have much of a p.o. intake by her report. The patient also has a history of diabetes which she denied but she is on metformin and this raises the possibility of autonomic dysfunction. And she is bradycardic with a heart rate in the 45 bpm range which has been documented chronically since July 2024. Back in 2018 her heart rate was 66 on an old ECG. Would recommend further evaluation to rule out seizure activity EEG has already been performed this morning. There was some indication of seizure activity at the time of her event yesterday reported by the son and she did have what could have been a postictal confused state following the event. (3) Seizure disorder: PLAN: Patient's chart has a diagnosis of seizure disorder she denies this but she is on Keppra. An EEG was done this morning. (4) Hypertension: QUALIFIERS: Hypertension type: primary hypertension Qualified Code(s): I10 - Essential (primary) hypertension PLAN: Will defer treatment with nonrate modulating drugs to the primary service. PLAN: Plan 1. Await results of the EEG. 2. Await results of the echocardiogram which was done this morning. 3. Continue to monitor telemetry. 4. Would ambulate the patient in the halls on telemetry to document rate response to activity. 5. The [facility] will follow-up with you as directed. 6. Would consider increasing thyroid replacement at the discretion of the primary service. HPI Consult Data Date of Consult: 10/12/24 HPI Narrative Reason for Consultation: Syncope and bradycardia HPI Narrative: KEILA GREEN, is a 59 F who presents with an episode of syncope that occurred yesterday. She was at home in the upright position walking down the [place] and started to feel funny like she had felt in the past when she had syncopal spells. She made it to her son's room and sat down in the chair and then passed out as he grabbed her. She did not fall to the floor she did not hit her head she did not get injured. Patient came to and appeared to be confused by her report and there was some shaking that occurred while she was passed out. The patient did have a prodrome knowing that she was going to to potentially pass out and thus why she went to her son's room. The patient had a history back in July 2024 where she had multiple episodes of falls and passing out. These almost always occurred with change of position and were very similar to what she experienced yesterday. The patient was evaluated in the emergency department where ECG showed a heart rate of 45 bpm in sinus rhythm and she was treated with IV fluids and recovered. It was felt that she had orthostatic hypotension. The patient had been doing fine until yesterday. The patient does report that she has not been eating much she has chronic diarrhea. Her heart rate was 45 bpm on her ECG. There was an previous ECG that had a heart rate of 39 bpm both were in sinus rhythm. ECG from July 2024 showed a heart rate of 48 bpm in sinus rhythm there was an older ECG from 2018 that had a heart rate of 66 bpm in sinus rhythm. The patient does have a history of hypothyroidism on replacement she is on no other known to be rate modulating drugs. She is on an extensive medication list. The patient denied to me that she was diabetic but she is on metformin. [facility] Medical History (Updated 10/12/24 @ 09:[address] Ruslan Nicolas MD) Depression Anxiety Hypertension Hyperthyroidism Home Medications ?Medication ?Instructions ?Recorded ?Last Taken ?Type metformin 1,000 mg 24 hr 1,000 mg PO DAILY 10/08/15 10/11/24 History tablet,extended release (gastric reten.) dicyclomine 20 mg tablet 20 mg PO 4X/DAY PRN PRN abdominal 06/05/24 Unknown History pain hydroxyzine HCl 25 mg tablet 25 mg PO PRN 06/05/24 Unknown History levetiracetam 500 mg tablet 500 mg PO BID 06/05/24 10/11/24 History levothyroxine 112 mcg tablet 112 mcg PO DAILY 06/05/24 10/11/24 History losartan 25 mg tablet 25 mg PO DAILY 06/05/24 10/11/24 History olanzapine 10 mg tablet 10 mg PO DAILY 06/05/24 Unknown History ramelteon 8 mg tablet 8 mg PO QHS 06/05/24 10/10/24 History rosuvastatin 20 mg tablet 20 mg PO QHS 06/05/24 10/10/24 History sertraline 100 mg tablet 150 mg PO QHS 06/05/24 10/10/24 History zolpidem 5 mg tablet 5 mg PO QHS PRN PRN insomnia 06/05/24 Unknown History ferrous sulfate 325 mg (65 mg 325 mg PO BID 08/17/24 10/11/24 History iron) tablet gabapentin 300 mg capsule 300 mg PO TID 08/17/24 10/11/24 History cholecalciferol (vitamin D3) 50 100 mcg PO DAILY 10/11/24 10/11/24 History mcg (2,000 unit) capsule docusate sodium 100 mg capsule 100 mg PO BID 10/11/24 10/11/24 History sennosides 8.6 mg tablet (Alfreda-johana) 17.2 mg PO QHS 10/11/24 10/10/24 History tizanidine 4 mg tablet 4 mg PO Q8H PRN PRN muscle spasm 10/11/24 Unknown History Allergy/AdvReac Type Severity Reaction Status Date / Time diphenhydramine (From Allergy Anaphylaxis Verified 10/11/24 16:07 Benadryl) morphine Allergy Anaphylaxis Verified 10/11/24 16:07 vancomycin Allergy Anaphylaxis Verified 10/11/24 16:07 Family History no significant family his Surgical History H/O spinal fusion H/O hernia repair Social History household members: spouse and other details: son history of recent travel: No Smoking Status: Never smoker alcohol intake: never substance use type: does not use do you feel safe at home: Yes ROS Constitutional Constitutional: Reports as per HPI Eyes Eyes: Reports systems reviewed and no addt'l complaints, except as documented ENT HEENT: Reports systems reviewed and no addt'l complaints, except as documented Cardiovascular Cardiovascular: Reports as per HPI Respiratory/Chest Respiratory/Chest: Reports as per HPI Gastrointestinal Gastrointestinal: Reports as per HPI Genitourinary Genitourinary: Reports as per HPI Musculoskeletal Musculoskeletal: Reports systems reviewed and no addt'l complaints, except as documented Integumentary Integumentary: Reports systems reviewed and no addt'l complaints, except as documented Neurologic Neurologic: Reports as per HPI Psychiatric Psychiatric: Reports as per HPI Endocrine Endocrinology: Reports as per HPI Hematologic/Lymphatic Hematologic/Lymphatic: Reports systems reviewed and no addt'l complaints, except as documented Allergic/Immunologic Allergic/Immunologic: Reports systems reviewed and no addt'l complaints, except as documented Physical Exam Const alert and oriented x3 HEENT normocephalic Eyes EOMs intact bilaterally Neck supple, no JVD and no carotid bruits Chest inspection of chest normal Resp normal respiratory effort and clear to auscultation bilaterally Cardio Rate: bradycardia Rhythm: regular rhythm Heart Sounds: S1 normal and S2 normal; Negative for click, gallop or murmur GI soft to palpation Extremity no pedal edema Neuro Neuro Narrative: Alert and oriented x 3 Psych mental status grossly normal Risk Stratification Risk Stratification Applicable: No Charges/Coding Visit Charges Inpatient E&M: 31064 Init Hosp L3 Objective Data Vital Signs: Vital Signs Temp Pulse Resp BP Pulse Ox O2 Del Method O2 Flow Rate 97.2 F L 48 L 18 140/73 H 96 Room Air 2 10/12/24 09:10 10/12/24 09:10 10/12/24 09:10 10/12/24 09:10 10/12/24 09:10 10/12/24 09:10 10/12/24 03:27 Oxygen Flow Rate (L/min) 2 Oxygen Delivery Method Room Air Weight: 169 lb 5.04 oz Body Mass Index (BMI) 30.9 Intake & Output: Intake and Output for Last 24 Hours 10/10/24 10/11/24 10/12/24 23:59 23:59 23:59 Intake Total 100 / 300 1204.17 / 1204.17 Balance 100 / 300 1204.17 / 1204.17 Lab / Micro Data Attestation: I reviewed the patient's lab results. 10/12/24 06:33 10/12/24 06:33 Labs: Laboratory Results - last 24 hr 10/11/24 16:14: WBC 7.2, RBC 4.02 L, Hgb 11.9 L, Hct 34.8 L, MCV 86.6, MCH 29.6, MCHC 34.2, RDW Std Deviation 44.6 H, RDW Coeff of Bobby 14.1, Plt Count 248, MPV 11.0, Immature Gran % (Auto) 0.300, Neut % (Auto) 52.9, Lymph % (Auto) 37.3, Mineral % (Auto) 6.6, Eos % (Auto) 2.2, Baso % (Auto) 0.7, Absolute Neuts (auto) 3.8, Absolute Lymphs (auto) 2.70, Nucleated RBC % 0, Sodium 141, Potassium 3.1 L, Chloride 106, Carbon Dioxide 19.8 L, Anion Gap 15, BUN 12, Creatinine 0.74, Estim Creat Clear Calc 80.25, Est GFR (MDRD) Non-Af 93, BUN/Creatinine Ratio 15.7, Glucose 87, Calcium 8.8, Total Bilirubin 0.20, Direct Bilirubin 0.09, AST 32, ALT 25, Alkaline Phosphatase 120 H, Troponin T High Sens 8 D, Total Protein 6.6, Albumin 4.0, Globulin 2.6, Lipase 29 10/11/24 17:15: Urine Color Straw, Urine Clarity Clear, Urine pH 6.5, Ur Specific [place] 1.010, Urine Protein 30 H, Urine Glucose (UA) Normal, Urine Ketones Negative, Urine Occult Blood Negative, Urine Nitrite Negative, Urine Bilirubin Negative, Urine Urobilinogen Normal, Ur Leukocyte Esterase 100 H, Urine RBC 0-5 SEEN, Urine WBC 5-10 SEEN, Ur Squamous Epith Cells 0-5 SEEN, Urine Bacteria 0 SEEN, Urine Mucus 0 SEEN 10/11/24 18:20: Magnesium 2.1, Troponin T Hi Sens 2 Hr 9, NT pro BNP II 497, TSH 4.310 H, Free T4 1.00, Free T3 pg/dL 2.8 10/11/24 21:39: Troponin T Hi Sens 4Hr 9 10/11/24 23:34: POC Glucose 100 10/12/24 06:05: POC Glucose 77 10/12/24 06:33: WBC 5.7, RBC 4.13 L, Hgb 12.3, Hct 36.9 L, MCV 89.3, MCH 29.8, MCHC 33.3, RDW Std Deviation 46.5 H, RDW Coeff of Bobby 14.2, Plt Count 218, MPV 10.7, Immature Gran % (Auto) 0.200, Neut % (Auto) 50.2, Lymph % (Auto) 38.8, Mineral % (Auto) 6.9, Eos % (Auto) 3.2, Baso % (Auto) 0.7, Absolute Neuts (auto) 2.9, Absolute Lymphs (auto) 2.21, Nucleated RBC % 0, Sodium 144, Potassium 3.9, Chloride 112 H, Carbon Dioxide 23.3, Anion Gap 8, BUN 10, Creatinine 0.47 L, Estim Creat Clear Calc 123.66, Est GFR (MDRD) Non-Af 110, BUN/Creatinine Ratio 21.2 H, Glucose 76, Calcium 8.4, Phosphorus 4.1, Total Bilirubin 0.26, AST 32, ALT 24, Alkaline Phosphatase 112 H, Total Protein 6.0, Albumin 3.7, Globulin 2.3, Albumin/Globulin Ratio 1.6 Rhythm Strip Rhythm Strip: Sinus bradycardia Rate: 45 Ectopy: None Cardiology Labs/Tests 10/11/24 16:14: WBC 7.2, RBC 4.02 L, Hgb 11.9 L, Hct 34.8 L, MCV 86.6, MCH 29.6, MCHC 34.2, Plt Count 248, MPV 11.0, Immature Gran % (Auto) 0.300, Neut % (Auto) 52.9, Lymph % (Auto) 37.3, Mineral % (Auto) 6.6, Eos % (Auto) 2.2, Baso % (Auto) 0.7, Absolute Neuts (auto) 3.8, Nucleated RBC % 0, Sodium 141, Potassium 3.1 L, Chloride 106, Carbon Dioxide 19.8 L, Anion Gap 15, BUN 12, Creatinine 0.74, Est GFR (MDRD) Non-Af 93, BUN/Creatinine Ratio 15.7, Glucose 87, Calcium 8.8, Total Bilirubin 0.20, Direct Bilirubin 0.09 10/11/24 17:15: Urine Color Straw, Urine Clarity Clear, Urine pH 6.5, Ur Specific [place] 1.010, Urine Protein 30 H, Urine Glucose (UA) Normal, Urine Ketones Negative, Urine Occult Blood Negative, Urine Nitrite Negative, Urine Bilirubin Negative, Urine Urobilinogen Normal, Ur Leukocyte Esterase 100 H, Urine RBC 0-5 SEEN, Urine WBC 5-10 SEEN 10/11/24 18:20: Magnesium 2.1 10/12/24 06:33: WBC 5.7, RBC 4.13 L, Hgb 12.3, Hct 36.9 L, MCV 89.3, MCH 29.8, MCHC 33.3, Plt Count 218, MPV 10.7, Immature Gran % (Auto) 0.200, Neut % (Auto) 50.2, Lymph % (Auto) 38.8, Mineral % (Auto) 6.9, Eos % (Auto) 3.2, Baso % (Auto) 0.7, Absolute Neuts (auto) 2.9, Nucleated RBC % 0, Sodium 144, Potassium 3.9, Chloride 112 H, Carbon Dioxide 23.3, Anion Gap 8, BUN 10, Creatinine 0.47 L, Est GFR (MDRD) Non-Af 110, BUN/Creatinine Ratio 21.2 H, Glucose 76, Calcium 8.4, Phosphorus 4.1, Total Bilirubin 0.26 Rhythm: EKG: ECHO: Stress Test: Cardiac Cath: PCI: CT Surgery: Holter monitor: EPS: PPM: CXR: Chest CT Scan: Radiography Diagnostic Testing: Radiology Impression Abdomen/Pelvis CT 10/11/24 17:05 IMPRESSION: 1. Probable mild/early diverticulitis focally involving the descending colon. 2. Small nonobstructive left renal stone. No hydroureteronephrosis. 3. Diffuse hepatic steatosis. 4. Unchanged 1.5 cm benign-appearing cyst in the pancreatic head/neck. 5. Chronic and postoperative ancillary findings as described above. Reading Location: [facility] Brain CT 10/11/24 17:05 IMPRESSION: No acute intracranial abnormality. Mild generalized brain parenchymal volume loss and chronic microangiopathic changes, which appears somewhat advanced for patient's age. Reading Location: [facility] Chest X-Ray 10/11/24 18:13 IMPRESSION: NO SIGNIFICANT CHANGE SINCE THE PRIOR EXAM. Reading Location: [id number]
[2024-10-12] MEDS: Cholecalciferol (VIT D3) 25 MCG TABLET (1,000 UNITS) 100 MCG PO (09:16)
[2024-10-12] MEDS: hydrOXYzine PAM 25 MG Capsule PO (09:16)
--- NOTE | 2024-10-12 10:00 | CASEMGMT ---
RN?CM?ASSESSMENT ? RN?CM?to room to meet with patient for initial transition planning/care coordination?assessment.?RN?CM?introduced self and role at [facility].? Pt voices understanding and consents to?assessment?at this time.? Pt resting in bed in no distress at this time.? Pt is A/O at this time and answers all questions appropriately.?? Care providers, pharmacy, and demographics verified/updated at this time. ? Strata: 2 PCP: Dr Gutierrez Specialists: none Preferred Pharmacy: [facility] @ [place]. Otherwise, pt goes to [facility] in [place]. Insurance: [employer] Prescription Benefit:?none LNOK: , Aman. 2 adult sons (ages 33 & 34). Pt also has a 17-yr-old daughter. Living Arrangements: Lives w/ and 3 children in one-story home w/basement and 3-4 steps to enter. Pt reports good family support. Pt and family help to care for one of the sons who is handicapped who has history of brain surgery and 2 strokes. Pt and her 's bedroom is in the basement and there is a bathroom in the basement. There is a bathroom on the main floor and pt could do FFSU, if needed. Pt reports being independent w/ADL's, IADL's, and manages her own medications. She denies having difficulty on the stairs @ baseline. Transportation:?Pt states drives self and states no transportation concerns at this time.? also drives. DME: ? Denies using any DME and denies needs.? HHC/SNF: No hx of either. Discussed discharge planning. Pt denies wanting any HHC or OP therapy. ? Pt wishes to return home and states has no concerns with going home at time of discharge. CM?to follow for any discharge planning/needs.? Pt voices no concerns/needs at this time.? Advised pt to ask for?CM?if any questions/concerns/needs arise.? Voices understanding. ? PLAN:??Home ? Jose BSN?RN?CM
--- NOTE | 2024-10-12 11:00 | MRI_ITS ---
PROCEDURE: BRAIN WITHOUT CONTRAST 10/12/2024 REASON FOR EXAM: RECURRENT SYNCOPE WITH H/O SZ'S AND ABN HEAD CT. TECHNIQUE: BRAIN WITHOUT CONTRAST Multiplanar and multisequence images were obtained. COMPARISON: October 11, 2024 FINDINGS: Brain: There is no evidence of hemorrhage, restricted diffusion/acute ischemia or mass. No extra-axial fluid collection, midline shift or mass effect. T2 prolongation in the periventricular white matter is present. No abnormal enhancement. Ventricles: No hydrocephalus. Mild volume loss. Major Intracranial Vessels: Normal flow voids. Sinuses: Clear Mastoids: Clear MRI/Brain without Contrast IMPRESSION: No acute abnormality. Mild changes of chronic microvascular ischemia and volum e loss. Reading Location: [id number]
--- NOTE | 2024-10-12 14:05 | PN.HOSP_ITS ---
Reason for Visit Chief Complaint: AMS, Syncope and Abdominal Pain. Objective Data Objective Data Vital Signs: Vital Signs Temp Pulse Resp BP Pulse Ox O2 Del Method O2 Flow Rate 97.2 F L 48 L 18 140/73 H 96 Room Air 2 10/12/24 09:10 10/12/24 09:10 10/12/24 09:10 10/12/24 09:10 10/12/24 09:10 10/12/24 09:10 10/12/24 03:27 Oxygen Flow Rate (L/min) 2 Oxygen Delivery Method Room Air Weight: 169 lb 5.04 oz Body Mass Index (BMI) 30.9 Intake & Output: Intake and Output for Last 24 Hours 10/10/24 10/11/24 10/12/24 23:59 23:59 23:59 Intake Total 100 / 300 1414.17 / 1414.17 Balance 100 / 300 1414.17 / 1414.17 Lab / Micro Data 10/12/24 06:33 10/12/24 06:33 Labs: Laboratory Results - last 24 hr 10/11/24 16:14: WBC 7.2, RBC 4.02 L, Hgb 11.9 L, Hct 34.8 L, MCV 86.6, MCH 29.6, MCHC 34.2, RDW Std Deviation 44.6 H, RDW Coeff of Bobby 14.1, Plt Count 248, MPV 11.0, Immature Gran % (Auto) 0.300, Neut % (Auto) 52.9, Lymph % (Auto) 37.3, [place] % (Auto) 6.6, Eos % (Auto) 2.2, Baso % (Auto) 0.7, Absolute Neuts (auto) 3.8, Absolute Lymphs (auto) 2.70, Nucleated RBC % 0, Sodium 141, Potassium 3.1 L , Chloride 106, Carbon Dioxide 19.8 L, Anion Gap 15, BUN 12, Creatinine 0.74, Estim Creat Clear Calc 80.25, Est GFR (MDRD) Non-Af 93, BUN/Creatinine Ratio 15.7, Glucose 87, Calcium 8.8, Total Bilirubin 0.20, Direct Bilirubin 0.09, AST 32, ALT 25, Alkaline Phosphatase 120 H, Troponin T High Sens 8 D, Total Protein 6.6, Albumin 4.0, Globulin 2.6, Lipase 29 10/11/24 17:15: Urine Color Straw, Urine Clarity Clear, Urine pH 6.5, Ur Specific [place] 1.010, Urine Protein 30 H, Urine Glucose (UA) Normal, Urine Ketones Negative, Urine Occult Blood Negative, Urine Nitrite Negative, Urine Bilirubin Negative, Urine Urobilinogen Normal, Ur Leukocyte Esterase 100 H, Urine RBC 0-5 SEEN, Urine WBC 5-10 SEEN, Ur Squamous Epith Cells 0-5 SEEN, Urine Bacteria 0 SEEN, Urine Mucus 0 SEEN 10/11/24 18:20: Magnesium 2.1, Troponin T Hi Sens 2 Hr 9, NT pro BNP II 497, TSH 4.310 H, Free T4 1.00, Free T3 pg/dL 2.8 10/11/24 21:39: Troponin T Hi Sens 4Hr 9 10/11/24 23:34: POC Glucose 100 10/12/24 06:05: POC Glucose 77 10/12/24 06:33: WBC 5.7, RBC 4.13 L, Hgb 12.3, Hct 36.9 L, MCV 89.3, MCH 29.8, MCHC 33.3, RDW Std Deviation 46.5 H, RDW Coeff of Bobby 14.2, Plt Count 218, MPV 10.7, Immature Gran % (Auto) 0.200, Neut % (Auto) 50.2, Lymph % (Auto) 38.8, [place] % (Auto) 6.9, Eos % (Auto) 3.2, Baso % (Auto) 0.7, Absolute Neuts (auto) 2.9, Absolute Lymphs (auto) 2.21, Nucleated RBC % 0, Sodium 144, Potassium 3.9, Chloride 112 H, Carbon Dioxide 23.3, Anion Gap 8, BUN 10, Creatinine 0.47 L, Estim Creat Clear Calc 123.66, Est GFR (MDRD) Non-Af 110, BUN/Creatinine Ratio 21.2 H, Glucose 76, Hemoglobin A1c 5.2, Calcium 8.4, Phosphorus 4.1, Total Bilirubin 0.26, AST 32, ALT 24, Alkaline Phosphatase 112 H, Total Protein 6.0, Albumin 3.7, Globulin 2.3, Albumin/Globulin Ratio 1.6 10/12/24 11:50: POC Glucose 84 Radiography Diagnostic Testing: Radiology Impression Abdomen/Pelvis CT 10/11/24 17:05 IMPRESSION: 1. Probable mild/early diverticulitis focally involving the descending colon. 2. Small nonobstructive left renal stone. No hydroureteronephrosis. 3. Diffuse hepatic steatosis. 4. Unchanged 1.5 cm benign-appearing cyst in the pancreatic head/neck. 5. Chronic and postoperative ancillary findings as described above. Reading Location: [facility] Brain CT 10/11/24 17:05 IMPRESSION: No acute intracranial abnormality. Mild generalized brain parenchymal volume loss and chronic microangiopathic changes, which appears somewhat advanced for patient's age. Reading Location: [facility] Chest X-Ray 10/11/24 18:13 IMPRESSION: NO SIGNIFICANT CHANGE SINCE THE PRIOR EXAM. Reading Location: [id number] Echocardiogram 10/11/24 20:12 Interpretation Summary The global longitudinal strain = --21.4 % (normal). Normal diastology for age. Left ventricular systolic function is normal. Estimated left ventricular ejection fraction 60% Normal LV size. Normal left ventricular thickness. Normal right ventricular size and function TAPSE is 2 m. At least moderate mitral regurgitation, with no evidence of prolapse or myxomatous changes Pulmonary artery systolic pressure is 40 mmHg. Top normal or very mild pulmonary hypertension Ordering Physician: Ramu Cornelius Referring Physician: EMMA HARMON Performed By: Kasey Freitas RDCS Brain MRI 10/12/24 11:00 IMPRESSION: No acute abnormality. Mild changes of chronic microvascular ischemia and volume loss. Reading Location: [facility] Rhythm Strip Rhythm Strip: Sinus bradycardia Rate: 45 Ectopy: None Physical Exam Narrative Seen and examined. Patient complaining of progressive worsening of abdominal pain for about 1 week with blood mixed stool for last 3 to 4 days. She also had loose bowel movement for 3 to 4 weeks but yesterday she felt constipation and rectal pressure. The patient passed out often since around 2 PM and the brief period of confusion afterwards. She denies any chest pain. Complain of bilateral lower quadrant abdominal pain. She also complained of chest pressure that felt like, substernal radiating from her abdomen. Denies chronic heart disease or lung disease Physical exam General: Alert, Oriented x3, Cooperative HEENT: Atraumatic, PERRLA, EOMI, Normocephalic. Oral: No Gingival or Mucosal Lesions/ Ulcerations Neck: Supple, No JVD, Negative Carotid Bruits Chest wall/Lungs: Air entry diminished in bilateral lung bases. No crepitation/rhonchi Cardiovascular: Regular rate and rhythm, Normal S1,S2, No M/G/R Abdomen: Bowel Sounds Present, Soft, tenderness over bilateral lower quadrants. Nondistended : No dysuria. No renal angle tenderness. No suprapubic tenderness. Extremities: No edema, Capillary Refill Less than 3 Seconds Skin: No rashes, No breakdown Musculoskeletal: No Tenderness to Palpation of Joints or Extremities Neurological: Cranial nerves II-XII grossly intact, DTR 2+/4. No acute focal neurological deficit. Psych/Mental Status: Normal Affect, Appropriate. Assessment & Plan Assessment/Plan (1) Acute diverticulitis: (2) Abdominal pain: QUALIFIERS: Abdominal location: generalized Qualified Code(s): R 10.84 - Generalized abdominal pain (3) Pancreatic cyst: (4) Syncope: QUALIFIERS: Syncope type: unspecified Qualified Code(s): R55 - Syncope and collapse (5) Bradycardia, sinus: (6) Prolonged QT interval: (7) Chest pain: QUALIFIERS: Chest pain type: unspecified Qualified Code(s): R07.9 - Chest pain, unspecified (8) Hypokalemia: (9) Hypothyroidism: QUALIFIERS: Hypothyroidism type: unspecified Qualified Code(s): E 03.9 - Hypothyroidism, unspecified (10) Obesity (BMI 30.0-34.9): (11) Hepatic steatosis: (12) History of gastric bypass: (13) Seizure disorder: (14) Altered level of consciousness: (15) Type II diabetes mellitus: QUALIFIERS: Diabetes mellitus alf insulin use: without vermin exterminator use Diabetes mellitus complication status: with other specified complication Qualified Code(s): E11.69 - Type 2 diabetes mellitus with other specified complication PLAN: Plan 1. CT scan of the abdomen and pelvis that revealed probable mild/early Diverticulitis focally involving the descending colon complicated by persistent Abdominal Pain after Gastric Bypass with additional CT evidence of unchanged ~1.5 cm benign-appearing cyst in the pancreatic head/neck - Admit to PCU. Continue empiric IV ceftriaxone and IV metronidazole begun in ER. Give promethazine IM as needed for nausea and vomiting with ondansetron known to potentially prolong QT-interval. Give pantoprazole 40 mg IV daily. Keep n.p.o. except for ice chips, sips and medications for now until patient's condition improves. Give ketorolac IV as needed for pain or fever with listed anaphylactic allergy to morphine. Finally, we will consult gastroenterology to see this patient on-rounds in the AM for further recommendations with help appreciated in advance. 2. Syncopal event with Sinus Bradycardia with heart rate of ~45 bpm and Prolonged QT-interval plus Chest Pain complicating #1 in the setting of previously known recurrent syncope - Monitor closely on PCU. Check echocardiogram to evaluate LVEF. Serialize troponin. I personally spoke with the pharmacist on-call about the patient's medication list with no obvious culprit agent identified at this time. Finally, we will consult [facility] to see this patient on rounds in the a.m. further recommendations with help appreciated in advance. 3. Hypokalemia of 3.1 mmol/L present on admission compounding #1 & #2 - Give supplemental KCl and then recheck level in AM to confirm repletion. 4. Hypothyroidism; on levothyroxine with mildly elevated TSH of 4.31 present on admission adding to the medical complexity of #1 - #3 - Maintain levothyroxine and check Free T3/T4. 5. Obesity (class I); with BMI of 32.3 this admission with corresponding CT evidence of diffuse hepatic steatosis with history of Gastric Bypass adding to the burden of disease outlined from #1 - #4 - Weight loss will be recommended. This complicates her case and may hamper recovery. 6. Seizure disorder; levetiracetam BID with AMS and suspicion for possible seizure-induced syncope - Resume levetiracetam as previous and check EEG. Check MRI of the brain with abnormal findings on head CT. Finally, we will consult [facility] to see this patient on rounds in the a.m. for further recommendations with help appreciated in advance. 7. DM-2; of unknown control on metformin - Keep NPO for now and check FSBS q. 6 hours plus lowest-intensity SSI. Check hemoglobin A1c to objectively evaluate quality of diabetic control. 8. Essential hypertension; on losartan - Continue losartan as previous. 9. Hyperlipidemia; on rosuvastatin - Resume statin and check Lipid Profile. 10. History of gastric bypass with chronic abdominal pain; on dicyclomine QID prn - Noted. 11. Neuropathy; on gabapentin TID - Current therapy to be continued. 12. Depression with anxiety; on sertraline and olanzapine - Maintain home regimen. 13. Muscle spasms; on prn tizanidine - Resume prn tizanidine. 14. MARYCHUY; on ferrous sulfate BID - Stable with hemoglobin of 11.9 g/dL and MCV of 86.6 fL present on admission. 15. History of hernia; s/p repair - Noted. 16. OA; s/p lumbar fusion and neck surgery - We will give ketorolac IV as needed as outlined in #1. 17. DVT prophylaxis - Enoxaparin 40 mg sq daily plus SCD's. Total time: Approximately (but not less than) 75 minutes.
--- NOTE | 2024-10-12 14:05 | PCM.PN.HOSP ---
Reason for Visit Chief Complaint: AMS, Syncope and Abdominal Pain. Objective Data Objective Data Vital Signs: Vital Signs Temp Pulse Resp BP Pulse Ox O2 Del Method O2 Flow Rate 97.2 F L 48 L 18 140/73 H 96 Room Air 2 10/12/24 09:10 10/12/24 09:10 10/12/24 09:10 10/12/24 09:10 10/12/24 09:10 10/12/24 09:10 10/12/24 03:27 Oxygen Flow Rate (L/min) 2 Oxygen Delivery Method Room Air Weight: 169 lb 5.04 oz Body Mass Index (BMI) 30.9 Intake & Output: Intake and Output for Last 24 Hours 10/10/24 10/11/24 10/12/24 23:59 23:59 23:59 Intake Total 100 / 300 1414.17 / 1414.17 Balance 100 / 300 1414.17 / 1414.17 Lab / Micro Data 10/12/24 06:33 10/12/24 06:33 Labs: Laboratory Results - last 24 hr 10/11/24 16:14: WBC 7.2, RBC 4.02 L, Hgb 11.9 L, Hct 34.8 L, MCV 86.6, MCH 29.6, MCHC 34.2, RDW Std Deviation 44.6 H, RDW Coeff of Bobby 14.1, Plt Count 248, MPV 11.0, Immature Gran % (Auto) 0.300, Neut % (Auto) 52.9, Lymph % (Auto) 37.3, [place] % (Auto) 6.6, Eos % (Auto) 2.2, Baso % (Auto) 0.7, Absolute Neuts (auto) 3.8, Absolute Lymphs (auto) 2.70, Nucleated RBC % 0, Sodium 141, Potassium 3.1 L, Chloride 106, Carbon Dioxide 19.8 L, Anion Gap 15, BUN 12, Creatinine 0.74, Estim Creat Clear Calc 80.25, Est GFR (MDRD) Non-Af 93, BUN/Creatinine Ratio 15.7, Glucose 87, Calcium 8.8, Total Bilirubin 0.20, Direct Bilirubin 0.09, AST 32, ALT 25, Alkaline Phosphatase 120 H, Troponin T High Sens 8 D, Total Protein 6.6, Albumin 4.0, Globulin 2.6, Lipase 29 10/11/24 17:15: Urine Color Straw, Urine Clarity Clear, Urine pH 6.5, Ur Specific [place] 1.010, Urine Protein 30 H, Urine Glucose (UA) Normal, Urine Ketones Negative, Urine Occult Blood Negative, Urine Nitrite Negative, Urine Bilirubin Negative, Urine Urobilinogen Normal, Ur Leukocyte Esterase 100 H, Urine RBC 0-5 SEEN, Urine WBC 5-10 SEEN, Ur Squamous Epith Cells 0-5 SEEN, Urine Bacteria 0 SEEN, Urine Mucus 0 SEEN 10/11/24 18:20: Magnesium 2.1, Troponin T Hi Sens 2 Hr 9, NT pro BNP II 497, TSH 4.310 H, Free T4 1.00, Free T3 pg/dL 2.8 10/11/24 21:39: Troponin T Hi Sens 4Hr 9 10/11/24 23:34: POC Glucose 100 10/12/24 06:05: POC Glucose 77 10/12/24 06:33: WBC 5.7, RBC 4.13 L, Hgb 12.3, Hct 36.9 L, MCV 89.3, MCH 29.8, MCHC 33.3, RDW Std Deviation 46.5 H, RDW Coeff of Bobby 14.2, Plt Count 218, MPV 10.7, Immature Gran % (Auto) 0.200, Neut % (Auto) 50.2, Lymph % (Auto) 38.8, [place] % (Auto) 6.9, Eos % (Auto) 3.2, Baso % (Auto) 0.7, Absolute Neuts (auto) 2.9, Absolute Lymphs (auto) 2.21, Nucleated RBC % 0, Sodium 144, Potassium 3.9, Chloride 112 H, Carbon Dioxide 23.3, Anion Gap 8, BUN 10, Creatinine 0.47 L, Estim Creat Clear Calc 123.66, Est GFR (MDRD) Non-Af 110, BUN/Creatinine Ratio 21.2 H, Glucose 76, Hemoglobin A1c 5.2, Calcium 8.4, Phosphorus 4.1, Total Bilirubin 0.26, AST 32, ALT 24, Alkaline Phosphatase 112 H, Total Protein 6.0, Albumin 3.7, Globulin 2.3, Albumin/Globulin Ratio 1.6 10/12/24 11:50: POC Glucose 84 Radiography Diagnostic Testing: Radiology Impression Abdomen/Pelvis CT 10/11/24 17:05 IMPRESSION: 1. Probable mild/early diverticulitis focally involving the descending colon. 2. Small nonobstructive left renal stone. No hydroureteronephrosis. 3. Diffuse hepatic steatosis. 4. Unchanged 1.5 cm benign-appearing cyst in the pancreatic head/neck. 5. Chronic and postoperative ancillary findings as described above. Reading Location: [facility] Brain CT 10/11/24 17:05 IMPRESSION: No acute intracranial abnormality. Mild generalized brain parenchymal volume loss and chronic microangiopathic changes, which appears somewhat advanced for patient's age. Reading Location: [facility] Chest X-Ray 10/11/24 18:13 IMPRESSION: NO SIGNIFICANT CHANGE SINCE THE PRIOR EXAM. Reading Location: [id number] Echocardiogram 10/11/24 20:12 Interpretation Summary The global longitudinal strain = --21.4 % (normal). Normal diastology for age. Left ventricular systolic function is normal. Estimated left ventricular ejection fraction 60% Normal LV size. Normal left ventricular thickness. Normal right ventricular size and function TAPSE is 2 m. At least moderate mitral regurgitation, with no evidence of prolapse or myxomatous changes Pulmonary artery systolic pressure is 40 mmHg. Top normal or very mild pulmonary hypertension Ordering Physician: Ramu Cornelius Referring Physician: EMMA HARMON Performed By: Kasey Freitas RDCS Brain MRI 10/12/24 11:00 IMPRESSION: No acute abnormality. Mild changes of chronic microvascular ischemia and volume loss. Reading Location: [facility] Rhythm Strip Rhythm Strip: Sinus bradycardia Rate: 45 Ectopy: None Physical Exam Narrative Seen and examined. Patient complaining of progressive worsening of abdominal pain for about 1 week with blood mixed stool for last 3 to 4 days. She also had loose bowel movement for 3 to 4 weeks but yesterday she felt constipation and rectal pressure. The patient passed out often since around 2 PM and the brief period of confusion afterwards. No prior history of syncope. Complain of bilateral lower quadrant abdominal pain. She also complained of chest pressure that felt like, substernal radiating from her abdomen yesterday. Denies chronic heart disease or lung disease Physical exam General: Alert, Oriented x3, Cooperative HEENT: Atraumatic, PERRLA, EOMI, Normocephalic. Oral: No Gingival or Mucosal Lesions/ Ulcerations Neck: Supple, No JVD, Negative Carotid Bruits Chest wall/Lungs: Air entry diminished in bilateral lung bases. No crepitation/rhonchi Cardiovascular: Regular rate and rhythm, Normal S1,S2, No M/G/R Abdomen: Bowel Sounds Present, Soft, tenderness over bilateral lower quadrants. Nondistended : No dysuria. No renal angle tenderness. No suprapubic tenderness. Extremities: No edema, Capillary Refill Less than 3 Seconds Skin: No rashes, No breakdown Musculoskeletal: No Tenderness to Palpation of Joints or Extremities Neurological: Cranial nerves II-XII grossly intact, DTR 2+/4. No acute focal neurological deficit. Psych/Mental Status: Normal Affect, Appropriate. Assessment & Plan Assessment/Plan (1) Acute diverticulitis: (2) Abdominal pain: QUALIFIERS: Abdominal location: generalized Qualified Code(s): R10.84 - Generalized abdominal pain (3) Pancreatic cyst: (4) Syncope: QUALIFIERS: Syncope type: unspecified Qualified Code(s): R55 - Syncope and collapse (5) Bradycardia, sinus: (6) Prolonged QT interval: (7) Chest pain: QUALIFIERS: Chest pain type: unspecified Qualified Code(s): R07.9 - Chest pain, unspecified (8) Hypokalemia: (9) Hypothyroidism: QUALIFIERS: Hypothyroidism type: unspecified Qualified Code(s): E03.9 - Hypothyroidism, unspecified (10) Obesity (BMI 30.0-34.9): (11) Hepatic steatosis: (12) History of gastric bypass: (13) Seizure disorder: (14) Altered level of consciousness: (15) Type II diabetes mellitus: QUALIFIERS: Diabetes mellitus complication status: with other specified complication Diabetes mellitus terminal system operator insulin use: without halfway use Qualified Code(s): E11.69 - Type 2 diabetes mellitus with other specified complication PLAN: Plan 59-year-old female admitted with bilateral lower quadrant abdominal pain with radiation to the chest and syncope. Gradually worsening abdominal pain for 1 week. 1. Mild/early diverticulitis involving descending colon: Patient had gastric bypass surgery in the past. She is being admitted in PCU. CT abdomen reported early diverticulitis with unchanged 1.5 cm benign-appearing cyst in the pancreatic head/neck. Patient started on IV ceftriaxone and metronidazole, continued. Pain controlled. Promethazine discontinued Colonoscopy in January 2020 for benign cecal polypoid fragment otherwise unremarkable. Denies family history of colon cancer. No prior personal history of diverticulitis. 2. Syncopal event with Sinus Bradycardia since July 2024 with heart rate of ~45 bpm and Prolonged QT-interval: Patient probably had radiating chest pain from abdomen. 2D echo reviewed. Left ventricular systolic function is normal with estimated EF 60%. Normal RV size. Upper normal to mild pulmonary hypertension. Moderate MR. She also has a history of orthostatic hypotension. She had warning prodrome of feeling dizziness passed out. Patient not on significant rate controlling medication. Serial troponins are normal with no significant delta change. proBNP normal. Patient evaluated by faculty member as per H&P note and faculty member patient has history of syncope up to 18 episodes over several weeks prior to the end of July 2024. Probably related to diarrhea, chronic in nature. Advised ambulation with telemetry strip to document chronotropic response to activity. 3. Hypokalemia of 3.1 mmol/L present on admission compounding #1 & #2 - Give supplemental KCl and then recheck level in AM to confirm repletion. 4. Hypothyroidism; on levothyroxine with mildly elevated TSH of 4.31 present on admission: Continue levothyroxine. Free T4 and free T3 normal. 5. Obesity (class I); with BMI of 32.3 KG per meter squared with diffuse hepatic steatosis/MASLD with history of Gastric Bypass: Adding to the medical complexity and comorbidity 6. Seizure disorder; levetiracetam BID with AMS and suspicion for possible seizure-induced syncope - Resume levetiracetam as previous EEG ordered. MRI brain done and shows no acute abnormality. Echo vascular ischemia and volume loss. 7. DM-2; of unknown control on metformin - FSBS q. 6 hours plus lowest-intensity SSI. A1c 5.2%. 8. Essential hypertension; on losartan - Continue losartan as previous. 9. Hyperlipidemia; on rosuvastatin - Resume statin 10. Pancreatic cyst: Patient is not a family history of pancreatic cancer. Denies history of pancreatitis, smoking or alcohol use. Stable since August 2023. No ductal dilatation. 11. Neuropathy; on gabapentin TID - Current therapy to be continued. 12. Depression with anxiety; on sertraline and olanzapine - Maintain home regimen. 13. Chronic MARYCHUY; on ferrous sulfate BID - Stable with hemoglobin of 11.9 g/dL and MCV of 86.6 fL present on admission. Repeat hemoglobin 12.3/36.9%. 14 OA; s/p lumbar fusion and neck surgery -on pain control DVT prophylaxis - Enoxaparin 40 mg sq daily plus SCD's. Laboratory Results 10/11/24 16:14: WBC 7.2, RBC 4.02 L, Hgb 11.9 L, Hct 34.8 L, MCV 86.6, MCH 29.6, MCHC 34.2, RDW Std Deviation 44.6 H, RDW Coeff of Bobby 14.1, Plt Count 248, MPV 11.0, Immature Gran % (Auto) 0.300, Neut % (Auto) 52.9, Lymph % (Auto) 37.3, [place] % (Auto) 6.6, Eos % (Auto) 2.2, Baso % (Auto) 0.7, Absolute Neuts (auto) 3.8, Absolute Lymphs (auto) 2.70, Nucleated RBC % 0, Sodium 141, Potassium 3.1 L, Chloride 106, Carbon Dioxide 19.8 L, Anion Gap 15, BUN 12, Creatinine 0.74, Estim Creat Clear Calc 80.25, Est GFR (MDRD) Non-Af 93, BUN/Creatinine Ratio 15.7, Glucose 87, Calcium 8.8, Total Bilirubin 0.20, Direct Bilirubin 0.09, AST 32, ALT 25, Alkaline Phosphatase 120 H, Troponin T High Sens 8 D, Total Protein 6.6, Albumin 4.0, Globulin 2.6, Lipase 29 10/11/24 17:15: Urine Color Straw, Urine Clarity Clear, Urine pH 6.5, Ur Specific [place] 1.010, Urine Protein 30 H, Urine Glucose (UA) Normal, Urine Ketones Negative, Urine Occult Blood Negative, Urine Nitrite Negative, Urine Bilirubin Negative, Urine Urobilinogen Normal, Ur Leukocyte Esterase 100 H, Urine RBC 0-5 SEEN, Urine WBC 5-10 SEEN, Ur Squamous Epith Cells 0-5 SEEN, Urine Bacteria 0 SEEN, Urine Mucus 0 SEEN 10/11/24 18:20: Magnesium 2.1, Troponin T Hi Sens 2 Hr 9, NT pro BNP II 497, TSH 4.310 H, Free T4 1.00, Free T3 pg/dL 2.8 10/11/24 21:39: Troponin T Hi Sens 4Hr 9 10/11/24 23:34: POC Glucose 100 10/12/24 06:05: POC Glucose 77 10/12/24 06:33: WBC 5.7, RBC 4.13 L, Hgb 12.3, Hct 36.9 L, MCV 89.3, MCH 29.8, MCHC 33.3, RDW Std Deviation 46.5 H, RDW Coeff of Bobby 14.2, Plt Count 218, MPV 10.7, Immature Gran % (Auto) 0.200, Neut % (Auto) 50.2, Lymph % (Auto) 38.8, [place] % (Auto) 6.9, Eos % (Auto) 3.2, Baso % (Auto) 0.7, Absolute Neuts (auto) 2.9, Absolute Lymphs (auto) 2.21, Nucleated RBC % 0, Sodium 144, Potassium 3.9, Chloride 112 H, Carbon Dioxide 23.3, Anion Gap 8, BUN 10, Creatinine 0.47 L, Estim Creat Clear Calc 123.66, Est GFR (MDRD) Non-Af 110, BUN/Creatinine Ratio 21.2 H, Glucose 76, Hemoglobin A1c 5.2, Calcium 8.4, Phosphorus 4.1, Total Bilirubin 0.26, AST 32, ALT 24, Alkaline Phosphatase 112 H, Total Protein 6.0, Albumin 3.7, Globulin 2.3, Albumin/Globulin Ratio 1.6 10/12/24 11:50: POC Glucose 84 Clinical Impression(s) from Imaging Studies Abdomen/Pelvis CT 10/11/24 17:05 IMPRESSION: 1. Probable mild/early diverticulitis focally involving the descending colon. 2. Small nonobstructive left renal stone. No hydroureteronephrosis. 3. Diffuse hepatic steatosis. 4. Unchanged 1.5 cm benign-appearing cyst in the pancreatic head/neck. 5. Chronic and postoperative ancillary findings as described above. Reading Location: [facility] Brain CT 10/11/24 17:05 IMPRESSION: No acute intracranial abnormality. Mild generalized brain parenchymal volume loss and chronic microangiopathic changes, which appears somewhat advanced for patient's age. Reading Location: [facility] Chest X-Ray 10/11/24 18:13 IMPRESSION: NO SIGNIFICANT CHANGE SINCE THE PRIOR EXAM. Reading Location: [facility] Echocardiogram 10/11/24 20:12 Interpretation Summary The global longitudinal strain = --21.4 % (normal). Normal diastology for age. Left ventricular systolic function is normal. Estimated left ventricular ejection fraction 60% Normal LV size. Normal left ventricular thickness. Normal right ventricular size and function TAPSE is 2 m. At least moderate mitral regurgitation, with no evidence of prolapse or myxomatous changes Pulmonary artery systolic pressure is 40 mmHg. Top normal or very mild pulmonary hypertension Ordering Physician: Ramu Cornelius Referring Physician: EMMA HARMON Performed By: Kasey Freitas RDCS Brain MRI 10/12/24 11:00 IMPRESSION: No acute abnormality. Mild changes of chronic microvascular ischemia and volume loss. Reading Location: [facility] Charges/Coding Visit Charges Inpatient E&M: 64407 Subs Hosp L2
[2024-10-12] MEDS: Senna Tablet 2 TABLET PO (20:46)
[2024-10-13] VITALS (7 sets, daily range): BP systolic 146–161; BP diastolic 59–80; PULSE 49–57; RESP 15–18; TEMP 36.6–36.9; O2SAT 93–96; BMI 30.8
[2024-10-13] MEDS: metroNIDAZOLE 500 MG/100 ML BAG 100 MG IV ×3 (06:12→21:53)
[2024-10-13] MEDS: 0.9% Saline Lock 10 ML Syringe IV ×2 (08:07→14:33)
--- NOTE | 2024-10-13 09:05 | PN.CARD_ITS ---
Subjective Subjective Patient feels well, heart rate overnight dipped down to mid 30s but asymptomatic. Her abdominal pain and diarrhea continue to be persistent but improving slowly on antibiotics. She recalls the syncopal event occurring for the last 2 to 3 years, almost 7 times and her MRI is concerning for significant volume loss considering her age group. She was reluctant to ambulate yesterday due to generalized fatigue. Objective Data Vital Signs: Vital Signs Temp Pulse Resp BP Pulse Ox O2 Del Method O2 Flow Rate 98.1 F 57 L 15 149/77 H 96 Room Air 2 10/13/24 03:07 10/13/24 03:07 10/13/24 03:07 10/13/24 03:07 10/13/24 03:07 10/13/24 08:12 10/12/24 03:27 Oxygen Flow Rate (L/min) 2 Oxygen Delivery Method Room Air Weight: 168 lb 6.931 oz Body Mass Index (BMI) 30.8 Intake & Output: Intake and Output for Last 24 Hours 10/11/24 10/12/24 10/13/24 23:59 23:59 23:59 Intake Total 100 / 300 2734.17 / 2734.17 100 / 100 Output Total 350 / 350 Balance 100 / 300 2734.17 / 2734.17 -250 / -250 Lab / Micro Data Attestation: I reviewed the patient's lab results. 10/12/24 06:33 10/12/24 06:33 Labs: Laboratory Results - last 24 hr 10/12/24 06:33: Hemoglobin A1c 5.2 10/12/24 11:50: POC Glucose 84 10/12/24 17:12: POC Glucose 75 10/13/24 00:16: POC Glucose 81 10/13/24 05:22: Phosphorus 3.6 10/13/24 06:11: POC Glucose 68 L ABG Data Attestation: I personally reviewed and interpreted this ABG as follows: Rhythm Strip Rhythm Strip: Sinus bradycardia Rate: 45 Ectopy: None Cardiology Labs/Tests 10/12/24 06:33: Hemoglobin A1c 5.2 10/13/24 05:22: Phosphorus 3.6 Rhythm: EKG: Sinus bradycardia, normal intervals, QTc corrected 434 ms, normal axis and no ischemic EKG changes ECHO: Normal left size and function, normal GLS, mildly dilated right ventricle with normal systolic function and mild pulmonary hypertension, moderate mitral regurgitation Radiography Diagnostic Testing: Radiology Impression Echocardiogram 10/11/24 20:12 Interpretation Summary The global longitudinal strain = --21.4 % (normal). Normal diastology for age. Left ventricular systolic function is normal. Estimated left ventricular ejection fraction 60% Normal LV size. Normal left ventricular thickness. Normal right ventricular size and function TAPSE is 2 m. At least moderate mitral regurgitation, with no evidence of prolapse or myxomatous changes Pulmonary artery systolic pressure is 40 mmHg. Top normal or very mild pulmonary hypertension Ordering Physician: Ramu Cornelius Referring Physician: EMMA HARMON Performed By: Kasey Freitas RDCS Brain MRI 10/12/24 11:00 IMPRESSION: No acute abnormality. Mild changes of chronic microvascular ischemia and volume loss. Reading Location: [facility] Physical Exam Const alert, oriented x3 and no apparent distress HEENT normocephalic and head/scalp atraumatic Eyes PERRL and EOMs intact bilaterally Neck full ROM, no lymphadenopathy, supple, no JVD and no carotid bruits Carotids: normal carotid upstroke Lymph Lymphatic: no lymphadenopathy noted Chest inspection of chest normal Resp normal respiratory effort and clear to auscultation bilaterally Cardio regular rate, regular rhythm and no JVD Rate: bradycardia Heart Sounds: S1 normal and S2 normal GI normal to inspection, nondistended, normoactive bowel sounds and soft to palpation no CVA tenderness Back/Spine no CVA tenderness Extremity normal to inspection, full ROM, normal capillary refill and no clubbing, cyanosis or edema Skin no rashes or lesions noted Psych mental status grossly normal Assessment & Plan Assessment/Plan (1) Acute diverticulitis: PLAN: Continue antibiotics as per primary team, improving slowly (2) Syncope: QUALIFIERS: Syncope type: unspecified Qualified Code(s): R55 - Syncope and collapse PLAN: Cannot completely correlate the bradycardia as an etiology for her syncopal events that have been occurring for the last 1 to 2 years with Phase phase however prodromal phase however euthyroid on hormone replacement and no previous history of tick bite. Underlying volume loss noted on MRI is concerning for neurodegenerative disease specially at her age group however GLS on echocardiogram is within normal limits. Definitely risk factors for coronary artery disease specially with her chest pain syndrome for which we will currently recommend a- check chronotropic response to exercise by performing an exercise stress test in a.m. after regular ambulation today in the hallways and assessing heart rate. B- if ischemia is ruled out then the possibility of conduction system disease or infiltrative disease should be investigated and placement and outpatient auto self service station attendant prior to consideration of permanent pacemaker implantation for symptomatic bradycardia and chronotropic incompetence and potentially programmed the pacemaker for AAI mode C-check Lyme titer and serum and urine immunofixation testing to rule out an underlying infiltrative disease specially with the volume loss noted on the brain MR D- Down titrate the dose of Zoloft as an SSRI to determine if the above is playing a role in some of her fatigue and bradycardia, can consider Effexor as an alternative as later may have more catecholamine release with secondary tachycardia (3) Bradycardia, sinus: PLAN: As above (4) Chest pain: QUALIFIERS: Chest pain type: unspecified Qualified Code(s): R07.9 - Chest pain, unspecified PLAN: Will investigate the possibility of underlying CAD by performing an exercise stress test to determine functional capacity and rule out any ischemic EKG changes response to exercise (5) Hypothyroidism: QUALIFIERS: Hypothyroidism type: unspecified Qualified Code(s): E 03.9 - Hypothyroidism, unspecified PLAN: Continue hormone replacement therapy (6) Obesity (BMI 30.0-34.9): PLAN: Previous gastric bypass surgery (7) Hepatic steatosis: PLAN: Continue lipid management with rosuvastatin (8) History of gastric bypass: PLAN: Check B12 or folate and consider vitamin supplementation (9) Seizure disorder: PLAN: Continue Keppra (10) Altered level of consciousness: PLAN: Back to baseline (11) Type II diabetes mellitus: QUALIFIERS: Diabetes mellitus complication status: with other specified complication Diabetes mellitus residential insulin use: without laborer marine terminal use Qualified Code(s): E11.69 - Type 2 diabetes mellitus with other specified complication PLAN: A1c 5.3, on low-dose losartan with well-controlled BP
[2024-10-13] MEDS: Pantoprazole Sodium 40 MG in 0.9% Normal Saline (100mL MB+) 100 ML 330 MG IV (09:15)
[2024-10-13] MEDS: Cholecalciferol (VIT D3) 25 MCG TABLET (1,000 UNITS) 100 MCG PO (09:27)
[2024-10-13 10:17] LABS: Vitamin B12 336 pg/mL (180-914)
--- NOTE | 2024-10-13 10:54 | PN.HOSP_ITS ---
Reason for Visit Chief Complaint: AMS, Syncope and Abdominal Pain. Objective Data Objective Data Vital Signs: Vital Signs Temp Pulse Resp BP Pulse Ox O2 Del Method O2 Flow Rate 97.8 F 50 L 18 157/59 H 96 Room Air 2 10/13/24 09:05 10/13/24 09:05 10/13/24 09:05 10/13/24 09:05 10/13/24 09:05 10/13/24 09:05 10/12/24 03:27 Oxygen Flow Rate (L/min) 2 Oxygen Delivery Method Room Air Weight: 168 lb 6.931 oz Body Mass Index (BMI) 30.8 Intake & Output: Intake and Output for Last 24 Hours 10/11/24 10/12/24 10/13/24 23:59 23:59 23:59 Intake Total 100 / 300 2734.17 / 2734.17 200 / 200 Output Total 350 / 350 Balance 100 / 300 2734.17 / 2734.17 -150 / -150 Lab / Micro Data 10/12/24 06:33 10/12/24 06:33 Labs: Laboratory Results - last 24 hr 10/12/24 11:50: POC Glucose 84 10/12/24 17:12: POC Glucose 75 10/13/24 00:16: POC Glucose 81 10/13/24 05:22: Phosphorus 3.6, Vitamin B12 336 10/13/24 06:11: POC Glucose 68 L Radiography Diagnostic Testing: Radiology Impression Echocardiogram 10/11/24 20:12 Interpretation Summary The global longitudinal strain = --21.4 % (normal). Normal diastology for age. Left ventricular systolic function is normal. Estimated left ventricular ejection fraction 60% Normal LV size. Normal left ventricular thickness. Normal right ventricular size and function TAPSE is 2 m. At least moderate mitral regurgitation, with no evidence of prolapse or myxomatous changes Pulmonary artery systolic pressure is 40 mmHg. Top normal or very mild pulmonary hypertension Brain MRI 10/12/24 11:00 IMPRESSION: No acute abnormality. Mild changes of chronic microvascular ischemia and volume loss. Reading Location: [id number] Rhythm Strip Rhythm Strip: Sinus bradycardia Rate: 45 Ectopy: None Physical Exam Narrative Seen and examined. Discussed with the clinic specialist. Patient has bradycardia, sinus bradycardia 51 beats per hour. He was thinking of infiltrative disease after chronotropic response of activity and stress test was done. Physical exam General: Alert, Oriented x3, Cooperative HEENT: Atraumatic, PERRLA, EOMI, Normocephalic. Oral: No Gingival or Mucosal Lesions/ Ulcerations Neck: Supple, No JVD, Negative Carotid Bruits Chest wall/Lungs: Air entry diminished in bilateral lung bases. No crepitation/rhonchi Cardiovascular: Regular rate and rhythm, Normal S1,S2, No M/G/R Abdomen: Bowel Sounds Present, Soft, tenderness over bilateral lower quadrants. Nondistended : No dysuria. No renal angle tenderness. No suprapubic tenderness. Extremities: No edema, Capillary Refill Less than 3 Seconds Skin: No rashes, No breakdown Musculoskeletal: No Tenderness to Palpation of Joints or Extremities Neurological: Cranial nerves II-XII grossly intact, DTR 2+/4. No acute focal neurological deficit. Psych/Mental Status: Normal Affect, Appropriate. Assessment & Plan Assessment/Plan (1) Acute diverticulitis: (2) Abdominal pain: QUALIFIERS: Abdominal location: generalized Qualified Code(s): R 10.84 - Generalized abdominal pain (3) Pancreatic cyst: (4) Syncope: QUALIFIERS: Syncope type: unspecified Qualified Code(s): R55 - Syncope and collapse (5) Bradycardia, sinus: (6) Prolonged QT interval: (7) Chest pain: QUALIFIERS: Chest pain type: unspecified Qualified Code(s): R07.9 - Chest pain, unspecified (8) Hypokalemia: (9) Hypothyroidism: QUALIFIERS: Hypothyroidism type: unspecified Qualified Code(s): E 03.9 - Hypothyroidism, unspecified (10) Obesity (BMI 30.0-34.9): (11) Hepatic steatosis: (12) History of gastric bypass: (13) Seizure disorder: (14) Altered level of consciousness: (15) Type II diabetes mellitus: QUALIFIERS: Diabetes mellitus complication status: with other specified complication 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 Gradually worsening abdominal pain for 1 week.Patient complaining of progressive worsening of abdominal pain for about 1 week with blood mixed stool for last 3 to 4 days. She also had loose bowel movement for 3 to 4 weeks but yesterday she felt constipation and rectal pressure. The patient passed out often since around 2 PM and the brief period of confusion afterwards. No prior history of syncope. Complain of bilateral lower quadrant abdominal pain. She also complained of chest pressure that felt like, substernal radiating from her abdomen yesterday. Denies chronic heart disease or lung disease 1. Mild/early diverticulitis involving descending colon: Patient had gastric bypass surgery in the past. She is being admitted in PCU. CT abdomen reported early diverticulitis with unchanged 1.5 cm benign-appearing cyst in the pancreatic head/neck. Patient started on IV ceftriaxone and metronidazole, continued. Pain controlled. Promethazine discontinued Colonoscopy in January 2020 for benign cecal polypoid fragment otherwise unremarkable. Denies family history of colon cancer. No prior personal history of diverticulitis. 10/13: Mild abdominal pain diarrhea getting better. 2. Syncopal event with Sinus Bradycardia since July 2024 with heart rate of ~45 bpm and Prolonged QT-interval: Patient probably had radiating chest pain from abdomen. 2D echo reviewed. Left ventricular systolic function is normal with estimated EF 60%. Normal RV size. Upper normal to mild pulmonary hypertension. Moderate MR. She also has a history of orthostatic hypotension. She had warning prodrome of feeling dizziness passed out. Patient not on significant rate controlling medication. Serial troponins are normal with no significant delta change. proBNP normal. Patient evaluated by clinic specialist as per H&P note and clinic specialist patient has history of syncope up to 18 episodes over several weeks prior to the end of July 2024. Probably related to diarrhea, chronic in nature. Advised ambulation with telemetry strip to document chronotropic response to activity. 10/13: Patient was evaluated by clinic specialist. Overnight heart rate dropped in mid 30s but asymptomatic. [employer] recommended exercise nuclear stress test in the morning to see chronotropic response to exercise. After ischemia is ruled out, probability of conduction system disease or infiltrative disease including Lyme disease, possibility of sarcoidosis/[place] lordosis. Lyme titer ordered. Down titration of Zoloft SSRI consider Effexor in place of Zoloft with slow titrate 3. Hypokalemia of 3.1 mmol/L present on admission compounding #1 & #2 - Give supplemental KCl and then recheck level in AM to confirm repletion. 4. Hypothyroidism; on levothyroxine with mildly elevated TSH of 4.31 present on admission: Continue levothyroxine. Free T4 and free T3 normal. 5. Obesity (class I); with BMI of 32.3 KG per meter squared with diffuse hepatic steatosis/MASLD with history of Gastric Bypass: Adding to the medical complexity and comorbidity 6. Seizure disorder; levetiracetam BID with AMS and suspicion for possible seizure-induced syncope - Resume levetiracetam as previous EEG ordered. MRI brain done and shows no acute abnormality. Echo vascular ischemia and volume loss. 7. DM-2; of unknown control on metformin - FSBS q. 6 hours plus lowest- intensity SSI. A1c 5.2%. 8. Essential hypertension; on losartan - Continue losartan as previous. 9. Hyperlipidemia; on rosuvastatin - Resume statin 10. Pancreatic cyst: Patient is not a family history of pancreatic cancer. Denies history of pancreatitis, smoking or alcohol use. Stable since August 2023. No ductal dilatation. 11. Neuropathy; on gabapentin TID - Current therapy to be continued. 12. Depression with anxiety; on sertraline and olanzapine - Maintain home regimen. 13. Chronic MARYCHUY; on ferrous sulfate BID - Stable with hemoglobin of 11.9 g/dL and MCV of 86.6 fL present on admission. Repeat hemoglobin 12.3/36.9%. 14 OA; s/p lumbar fusion and neck surgery -on pain control DVT prophylaxis - Enoxaparin 40 mg sq daily plus SCD's. Laboratory Results 10/11/24 16:14: WBC 7.2, RBC 4.02 L, Hgb 11.9 L, Hct 34.8 L, MCV 86.6, MCH 29.6, MCHC 34.2, RDW Std Deviation 44.6 H, RDW Coeff of Bobby 14.1, Plt Count 248, MPV 11.0, Immature Gran % (Auto) 0.300, Neut % (Auto) 52.9, Lymph % (Auto) 37.3, Freeborn % (Auto) 6.6, Eos % (Auto) 2.2, Baso % (Auto) 0.7, Absolute Neuts (auto) 3.8, Absolute Lymphs (auto) 2.70, Nucleated RBC % 0, Sodium 141, Potassium 3.1 L , Chloride 106, Carbon Dioxide 19.8 L, Anion Gap 15, BUN 12, Creatinine 0.74, Estim Creat Clear Calc 80.25, Est GFR (MDRD) Non-Af 93, BUN/Creatinine Ratio 15.7, Glucose 87, Calcium 8.8, Total Bilirubin 0.20, Direct Bilirubin 0.09, AST 32, ALT 25, Alkaline Phosphatase 120 H, Troponin T High Sens 8 D, Total Protein 6.6, Albumin 4.0, Globulin 2.6, Lipase 29 10/11/24 17:15: Urine Color Straw, Urine Clarity Clear, Urine pH 6.5, Ur Specific Gooding 1.010, Urine Protein 30 H, Urine Glucose (UA) Normal, Urine Ketones Negative, Urine Occult Blood Negative, Urine Nitrite Negative, Urine Bilirubin Negative, Urine Urobilinogen Normal, Ur Leukocyte Esterase 100 H, Urine RBC 0-5 SEEN, Urine WBC 5-10 SEEN, Ur Squamous Epith Cells 0-5 SEEN, Urine Bacteria 0 SEEN, Urine Mucus 0 SEEN 10/11/24 18:20: Magnesium 2.1, Troponin T Hi Sens 2 Hr 9, NT pro BNP II 497, TSH 4.310 H, Free T4 1.00, Free T3 pg/dL 2.8 10/11/24 21:39: Troponin T Hi Sens 4Hr 9 10/11/24 23:34: POC Glucose 100 10/12/24 06:05: POC Glucose 77 10/12/24 06:33: WBC 5.7, RBC 4.13 L, Hgb 12.3, Hct 36.9 L, MCV 89.3, MCH 29.8, MCHC 33.3, RDW Std Deviation 46.5 H, RDW Coeff of Bobby 14.2, Plt Count 218, MPV 10.7, Immature Gran % (Auto) 0.200, Neut % (Auto) 50.2, Lymph % (Auto) 38.8, Freeborn % (Auto) 6.9, Eos % (Auto) 3.2, Baso % (Auto) 0.7, Absolute Neuts (auto) 2.9, Absolute Lymphs (auto) 2.21, Nucleated RBC % 0, Sodium 144, Potassium 3.9, Chloride 112 H, Carbon Dioxide 23.3, Anion Gap 8, BUN 10, Creatinine 0.47 L, Estim Creat Clear Calc 123.66, Est GFR (MDRD) Non-Af 110, BUN/Creatinine Ratio 21.2 H, Glucose 76, Hemoglobin A1c 5.2, Calcium 8.4, Phosphorus 4.1, Total Bilirubin 0.26, AST 32, ALT 24, Alkaline Phosphatase 112 H, Total Protein 6.0, Albumin 3.7, Globulin 2.3, Albumin/Globulin Ratio 1.6 10/12/24 11:50: POC Glucose 84 Laboratory Results 10/12/24 17:12: POC Glucose 75 10/13/24 00:16: POC Glucose 81 10/13/24 05:22: Phosphorus 3.6, Vitamin B12 336, Lyme Total Antibody Pending 10/13/24 06:11: POC Glucose 68 L 10/13/24 11:28: POC Glucose 75 Clinical Impression(s) from Imaging Studies Abdomen/Pelvis CT 10/11/24 17:05 IMPRESSION: 1. Probable mild/early diverticulitis focally involving the descending colon. 2. Small nonobstructive left renal stone. No hydroureteronephrosis. 3. Diffuse hepatic steatosis. 4. Unchanged 1.5 cm benign-appearing cyst in the pancreatic head/neck. 5. Chronic and postoperative ancillary findings as described above. Reading Location: [facility] Brain CT 10/11/24 17:05 IMPRESSION: No acute intracranial abnormality. Mild generalized brain parenchymal volume loss and chronic microangiopathic changes, which appears somewhat advanced for patient's age. Reading Location: [facility] Chest X-Ray 10/11/24 18:13 IMPRESSION: NO SIGNIFICANT CHANGE SINCE THE PRIOR EXAM. Reading Location: [id number] Echocardiogram 10/11/24 20:12 Interpretation Summary The global longitudinal strain = --21.4 % (normal). Normal diastology for age. Left ventricular systolic function is normal. Estimated left ventricular ejection fraction 60% Normal LV size. Normal left ventricular thickness. Normal right ventricular size and function TAPSE is 2 m. At least moderate mitral regurgitation, with no evidence of prolapse or myxomatous changes Pulmonary artery systolic pressure is 40 mmHg. Top normal or very mild pulmonary hypertension Ordering Physician: Ramu Cornelius Referring Physician: EMMA HARMON Performed By: Kasey Freitas RDCS Brain MRI 10/12/24 11:00 IMPRESSION: No acute abnormality. Mild changes of chronic microvascular ischemia and volume loss. Reading Location: [id number] Charges/Coding Visit Charges Inpatient E&M: 34601 Subs Hosp L2
[2024-10-13] MEDS: hydrOXYzine PAM 25 MG Capsule PO (21:51)
[2024-10-14] VITALS (7 sets, daily range): BP systolic 147–163; BP diastolic 72–90; PULSE 45–55; RESP 14–16; TEMP 36.7–37.2; O2SAT 94–99; BMI 31.7
[2024-10-14 04:17] LABS: Hematocrit 37.6 % (37-47); Hemoglobin 12.5 g/dL (12.0-15.0); Immature Granulocytes Count 0.010 X10^3/uL (0.0-0.0); Mean Corp Hgb Conc 33.2 g/dL (32-36); Mean Corpuscular Volume 89.5 fL (81-99); Mean Platelet Vol. 10.7 fl (6.2-12.0); NRBC Flagged by Analyzer 0 % (0-5); Platelet Count 239 K/mm3 (150-450); RBC Distribution Width CV 14.0 % (11.6-14.6); RBC Distribution Width SD 45.4 fl (35.1-43.9); Red Blood Count 4.20 M/mm3 (4.2-5.4); White Blood Count 5.9 K/mm3 (4.4-11.0)
[2024-10-14 04:37] LABS: Anion Gap 11 (5-15); BUN 7 mg/dL (4-19); BUN/Creat Ratio 16.6 RATIO (10-20); Calcium,Total 8.4 mg/dL (7.6-11.0); Carbon Dioxide 20.4 mmol/L (21.0-32.0); Chloride 110 mmol/L (98-108); Estimated Creatinine Clearance 141.39 ml/min (50-250); Glucose 81 mg/dL (70-99); Potassium 3.5 mmol/L (3.3-5.1)
[2024-10-14] MEDS: metroNIDAZOLE 500 MG/100 ML BAG 100 MG IV ×3 (05:48→22:22)
--- NOTE | 2024-10-14 08:50 | PN.HOSP_ITS ---
Reason for Visit Chief Complaint: AMS, Syncope and Abdominal Pain. Objective Data Objective Data Vital Signs: Vital Signs Temp Pulse Resp BP Pulse Ox O2 Del Method O2 Flow Rate 98.4 F 46 L 14 152/76 H 95 Room Air 2 10/14/24 07:41 10/14/24 07:41 10/14/24 07:41 10/14/24 07:41 10/14/24 07:41 10/14/24 07:41 10/12/24 03:27 Oxygen Flow Rate (L/min) 2 Oxygen Delivery Method Room Air Weight: 173 lb 8.061 oz Body Mass Index (BMI) 31.7 Intake & Output: Intake and Output for Last 24 Hours 10/12/24 10/13/24 10/14/24 23:59 23:59 23:59 Intake Total 2734.17 / 2734.17 870 / 870 100 / 100 Output Total 350 / 350 Balance 2734.17 / 2734.17 520 / 520 100 / 100 Lab / Micro Data 10/14/24 03:49 10/14/24 03:49 Labs: Laboratory Results - last 24 hr 10/13/24 05:22: Vitamin B12 336 10/13/24 11:28: POC Glucose 75 10/13/24 16:59: POC Glucose 72 L 10/14/24 03:49: WBC 5.9, RBC 4.20, Hgb 12.5, Hct 37.6, MCV 89.5, MCH 29.8, MCHC 33.2, RDW Std Deviation 45.4 H, RDW Coeff of Bobby 14.0, Plt Count 239, MPV 10.7, Immature Gran % (Auto) 0.200, Neut % (Auto) 58.3, Lymph % (Auto) 30.3, Scott % (Auto) 6.7, Eos % (Auto) 4.2, Baso % (Auto) 0.3, Absolute Neuts (auto) 3.5, Absolute Lymphs (auto) 1.80, Nucleated RBC % 0, Sodium 142, Potassium 3.5, C hloride 110 H, Carbon Dioxide 20.4 L, Anion Gap 11, BUN 7, Creatinine 0.41 L, Estim Creat Clear Calc 141.39, Est GFR (MDRD) Non-Af 113, BUN/Creatinine Ratio 16.6, Glucose 81, Calcium 8.4 10/14/24 05:53: POC Glucose 77 Micro: Microbiology 10/13/24 18:05 Stool Enteric Bacteriology - Final 10/13/24 18:05 Stool Clostridioides difficile (PCR) - Final Rhythm Strip Rhythm Strip: Sinus bradycardia Rate: 45 Ectopy: None Physical Exam Narrative Seen and examined. Patient states he still has diarrhea. Stool for C. difficile and enteric pathogen panel negative. Still in sinus bradycardia with low 50s. Complain of left inframammary sharp pain probably radiation from upper abdomen. No associated shortness of breath. Did not feel like slow heartbeat or heart stop. Going for stress test Discussed with instructional technology instructor. He was thinking of infiltrative disease after chronotropic response of activity and stress test was done. Physical exam General: Alert, Oriented x3, Cooperative HEENT: Atraumatic, PERRLA, EOMI, Normocephalic. Oral: No Gingival or Mucosal Lesions/ Ulcerations Neck: Supple, No JVD, Negative Carotid Bruits Chest wall/Lungs: Air entry diminished in bilateral lung bases. No crepitation/rhonchi Cardiovascular: Sinus bradycardia, Normal S1,S2, No M/G/R Abdomen: Bowel Sounds Present, Soft, tenderness over bilateral lower quadrants. Nondistended : No dysuria. No renal angle tenderness. No suprapubic tenderness. Extremities: No edema, Capillary Refill Less than 3 Seconds Skin: No rashes, No breakdown Musculoskeletal: No Tenderness to Palpation of Joints or Extremities Neurological: Cranial nerves II-XII grossly intact, DTR 2+/4. No acute focal neurological deficit. Psych/Mental Status: Normal Affect, Appropriate. Assessment & Plan Assessment/Plan (1) Acute diverticulitis: (2) Abdominal pain: QUALIFIERS: Abdominal location: generalized Qualified Code(s): R 10.84 - Generalized abdominal pain (3) Pancreatic cyst: (4) Syncope: QUALIFIERS: Syncope type: unspecified Qualified Code(s): R55 - Syncope and collapse (5) Bradycardia, sinus: (6) Prolonged QT interval: (7) Chest pain: QUALIFIERS: Chest pain type: unspecified Qualified Code(s): R07.9 - Chest pain, unspecified (8) Hypokalemia: (9) Hypothyroidism: QUALIFIERS: Hypothyroidism type: unspecified Qualified Code(s): E 03.9 - Hypothyroidism, unspecified (10) Obesity (BMI 30.0-34.9): (11) Hepatic steatosis: (12) History of gastric bypass: (13) Seizure disorder: (14) Altered level of consciousness: (15) Type II diabetes mellitus: QUALIFIERS: Diabetes mellitus complication status: with other specified complication 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 Gradually worsening abdominal pain for 1 week.Patient complaining of progressive worsening of abdominal pain for about 1 week with blood mixed stool for last 3 to 4 days. She also had loose bowel movement for 3 to 4 weeks but yesterday she felt constipation and rectal pressure. The patient passed out often since around 2 PM and the brief period of confusion afterwards. No prior history of syncope. Complain of bilateral lower quadrant abdominal pain. She also complained of chest pressure that felt like, substernal radiating from her abdomen yesterday. Denies chronic heart disease or lung disease 1. Mild/early diverticulitis involving descending colon: Patient had gastric bypass surgery in the past. She is being admitted in PCU. CT abdomen reported early diverticulitis with unchanged 1.5 cm benign-appearing cyst in the pancreatic head/neck. Patient started on IV ceftriaxone and metronidazole, continued. Pain controlled. Promethazine discontinued Colonoscopy in January 2020 for benign cecal polypoid fragment otherwise unremarkable. Denies family history of colon cancer. No prior personal history of diverticulitis. 10/13: Mild abdominal pain diarrhea getting better. 10/14: Patient continues to have diarrhea. Stool for C. difficile enteric pathogen panel negative. Ova parasite pending. Giardia EIA ordered 2. Syncopal event with Sinus Bradycardia since July 2024 with heart rate of ~45 bpm and Prolonged QT-interval: Patient probably had radiating chest pain from abdomen. 2D echo reviewed. Left ventricular systolic function is normal with estimated EF 60%. Normal RV size. Upper normal to mild pulmonary hypertension. Moderate MR. She also has a history of orthostatic hypotension. She had warning prodrome of feeling dizziness passed out. Patient not on significant rate controlling medication. Serial troponins are normal with no significant delta change. proBNP normal. Patient evaluated by instructional technology instructor as per H&P note and instructional technology instructor patient has history of syncope up to 18 episodes over several weeks prior to the end of July 2024. Probably related to diarrhea, chronic in nature. Advised ambulation with telemetry strip to document chronotropic response to activity. 10/13: Patient was evaluated by instructional technology instructor. Overnight heart rate dropped in mid 30s but asymptomatic. [employer] recommended exercise nuclear stress test in the morning to see chronotropic response to exercise. After ischemia is ruled out, probability of conduction system disease or infiltrative disease including Lyme disease, possibility of sarcoidosis/[place] lordosis. Lyme titer ordered. Down titration of Zoloft SSRI consider Effexor in place of Zoloft with slow titrate 10/14: Discussed with the instructional technology instructor. Patient had treadmill nuclear stress test but heart rate well reduced to the 70 to 80/min, not the maximum desired therefore was converted to chemical nuclear stress test. Peak heart rate less than 55% of target heart rate. No definite evidence of ischemia or infarction. EF 75%. Still the cause of the sinus bradycardia not clear. Neurologist was trying to rule Linq with the volume loss seen in the MRI brain regarding infiltrative disease. We agreed on outpatient follow-up with the neurologist and evaluation for dementia/neurodegenerative disorders. Most likely plan is discharged with case monitor and follow-up with EP to evaluate for pacemaker. Lyme total antibodies negative. 3. Hypokalemia of 3.1 mmol/L present on admission compounding #1 & #2 - Give supplemental KCl and then recheck level in AM to confirm repletion. Potassium low normal 3.5. Replaced 4. Hypothyroidism; on levothyroxine with mildly elevated TSH of 4.31 present on admission: Continue levothyroxine. Free T4 and free T3 normal. 5. Obesity (class I); with BMI of 32.3 KG per meter squared with diffuse hepatic steatosis/MASLD with history of Gastric Bypass: Adding to the medical complexity and comorbidity 6. Seizure disorder; levetiracetam BID with AMS and suspicion for possible seizure-induced syncope - Resume levetiracetam as previous EEG ordered. MRI brain done and shows no acute abnormality. Echo vascular ischemia and volume loss. 7. DM-2; of unknown control on metformin - FSBS q. 6 hours plus lowest- intensity SSI. A1c 5.2%. 8. Essential hypertension; on losartan - Continue losartan as previous. 9. Hyperlipidemia; on rosuvastatin - Resume statin 10. Pancreatic cyst: Patient is not a family history of pancreatic cancer. Denies history of pancreatitis, smoking or alcohol use. Stable since August 2023. No ductal dilatation. 11. Neuropathy; on gabapentin TID - Current therapy to be continued. 12. Depression with anxiety; on sertraline and olanzapine - Maintain home regimen. 13. Chronic MARYCHUY; on ferrous sulfate BID - Stable with hemoglobin of 11.9 g/dL and MCV of 86.6 fL present on admission. Repeat hemoglobin 12.3/36.9%. 14 OA; s/p lumbar fusion and neck surgery -on pain control DVT prophylaxis - Enoxaparin 40 mg sq daily plus SCD's. Microbiology Past 72 Hours 10/13/24 18:05 Stool Enteric Bacteriology - Final 10/13/24 18:05 Stool Clostridioides difficile (PCR) - Final Laboratory Results 10/13/24 05:22: Lyme Total Antibody Negative 10/13/24 16:59: POC Glucose 72 L 10/14/24 03:49: WBC 5.9, RBC 4.20, Hgb 12.5, Hct 37.6, MCV 89.5, MCH 29.8, MCHC 33.2, RDW Std Deviation 45.4 H, RDW Coeff of Bobby 14.0, Plt Count 239, MPV 10.7, Immature Gran % (Auto) 0.200, Neut % (Auto) 58.3, Lymph % (Auto) 30.3, Scott % (Auto) 6.7, Eos % (Auto) 4.2, Baso % (Auto) 0.3, Absolute Neuts (auto) 3.5, Absolute Lymphs (auto) 1.80, Nucleated RBC % 0, Sodium 142, Potassium 3.5, C hloride 110 H, Carbon Dioxide 20.4 L, Anion Gap 11, BUN 7, Creatinine 0.41 L, Estim Creat Clear Calc 141.39, Est GFR (MDRD) Non-Af 113, BUN/Creatinine Ratio 16.6, Glucose 81, Calcium 8.4 10/14/24 05:53: POC Glucose 77 10/14/24 12:01: POC Glucose 92 Clinical Impression(s) from Imaging Studies Abdomen/Pelvis CT 10/11/24 17:05 IMPRESSION: 1. Probable mild/early diverticulitis focally involving the descending colon. 2. Small nonobstructive left renal stone. No hydroureteronephrosis. 3. Diffuse hepatic steatosis. 4. Unchanged 1.5 cm benign-appearing cyst in the pancreatic head/neck. 5. Chronic and postoperative ancillary findings as described above. Reading Location: [facility] Brain CT 10/11/24 17:05 IMPRESSION: No acute intracranial abnormality. Mild generalized brain parenchymal volume loss and chronic microangiopathic changes, which appears somewhat advanced for patient's age. Reading Location: [facility] Chest X-Ray 10/11/24 18:13 IMPRESSION: NO SIGNIFICANT CHANGE SINCE THE PRIOR EXAM. Reading Location: [id number] Echocardiogram 10/11/24 20:12 Interpretation Summary The global longitudinal strain = --21.4 % (normal). Normal diastology for age. Left ventricular systolic function is normal. Estimated left ventricular ejection fraction 60% Normal LV size. Normal left ventricular thickness. Normal right ventricular size and function TAPSE is 2 m. At least moderate mitral regurgitation, with no evidence of prolapse or myxomatous changes Pulmonary artery systolic pressure is 40 mmHg. Top normal or very mild pulmonary hypertension Ordering Physician: Ramu Cornelius Referring Physician: EMMA HARMON Performed By: Kasey Freitas RDCS Brain MRI 10/12/24 11:00 IMPRESSION: No acute abnormality. Mild changes of chronic microvascular ischemia and volume loss. Reading Location: [facility] Charges/Coding Visit Charges Inpatient E&M: 62784 Subs Hosp L2
[2024-10-14] MEDS: 0.9% Saline Lock 10 ML Syringe IV ×3 (11:10→18:33)
[2024-10-14] MEDS: Pantoprazole Sodium 40 MG in 0.9% Normal Saline (100mL MB+) 100 ML 330 MG IV (12:27)
--- NOTE | 2024-10-14 12:47 | STRESSREP ---
Stress Test Report Exercise myocardial perfusion stress test. [59]-year-old [female] with a history of hypertension, dyslipidemia, neurodegenerative disease, depression, anxiety, seizure disorder who is presenting with recurrent syncopal events and underlying prominent sinus bradycardia without any AV blocking agents]. Stress protocol: Resting EKG demonstrates [sinus bradycardia with normal SC intervals and normal QRS heart rate 46 bpm resting blood pressure is [136/78] mmHg. The patient exercised according to the modified regular Sachin protocol for a total duration of [7 minutes and 33 seconds] attaining a maximum heart rate of [90] bpm which was [55]% of maximum predicted heart rate; the maximum workload was [4.6] metabolic equivalents. At rest there were no ST or T wave changes noted to suggest ischemia and at peak exercise upsloping ST changes only were noted which did not meet the criteria for ischemia. However the test was submaximal for which it was converted to pharmacological stress test utilizing Lexiscan infusion according to the protocol with resting heart rate 46 that que to a maximum of 76 bpm and blood pressure remained relatively stable 112/78 mmHg. No signs or symptoms of reaction to the Lexiscan was noted. Myocardial perfusion protocol. [ 11.8] mCi of technetium 99m sestamibi was injected at rest. And after Lexiscan infusion, stress dose 36 mCi of technetium 99m sestamibi was injected stress images were obtained stress and rest images were reconstructed in comparing the short axis vertical long and horizontal long axis. Gated images were also obtained. Perfusion SPECT analysis: Review of the stress images demonstrate normal uptake of tracer noted in all areas of the myocardium. The resting images similarly demonstrate normal uptake of tracer noted in all areas of the myocardium. No areas of reversibility are noted to suggest ischemia no previous infarct was noted. Gated SPECT analysis: The gated ejection fraction is [75 ]%. Conclusion: #1 submaximal exercise myocardial perfusion stress test due to blunted heart rate response to exercise for which the test was converted to pharmacological stress test, peak heart rate achieved less than 55% of target heart rate .#2 normal caffeine imaging without definitive evidence of ischemia or infarction #3 normal left nuclear size and function with calculated LVEF 75% Recommendations Will discuss with the patient further the option of device therapy to improve her heart rate response to exercise, i.e. permanent pacemaker
[2024-10-14 13:09] LABS: Lyme Scn Total Ab w/Rflx Negative (Negative)
--- NOTE | 2024-10-14 13:49 | PN.CARD_ITS ---
Subjective Subjective Patient remains asymptomatic laying in bed but with persistent sinus bradycardia on the monitor and underwent stress testing this morning during which she had submaximal heart rate response to exercise almost blunted for which pharmacological stress test was performed and the bicarb fusion imaging were within normal limits with normal ventricle size and function. No signs or symptoms of acute distress or heart failure Objective Data Vital Signs: Vital Signs Temp Pulse Resp BP Pulse Ox O2 Del Method O2 Flow Rate 98.7 F 45 L 16 147/72 H 94 Room Air 2 10/14/24 12:10/14/24 12:29 10/14/24 12:29 10/14/24 12:29 10/14/24 12:29 10/14/24 12:29 10/12/24 03:27 Oxygen Flow Rate (L/min) 2 Oxygen Delivery Method Room Air Weight: 173 lb 8.061 oz Body Mass Index (BMI) 31.7 Intake & Output: Intake and Output for Last 24 Hours 10/12/24 10/13/24 10/14/24 23:59 23:59 23:59 Intake Total 2734.17 / 2734.17 870 / 870 390 / 390 Output Total 350 / 350 Balance 2734.17 / 2734.17 520 / 520 390 / 390 Lab / Micro Data Attestation: I reviewed the patient's lab results. 10/14/24 03:49 10/14/24 03:49 Labs: Laboratory Results - last 24 hr 10/13/24 05:22: Lyme Total Antibody Negative 10/13/24 16:59: POC Glucose 72 L 10/14/24 03:49: WBC 5.9, RBC 4.20, Hgb 12.5, Hct 37.6, MCV 89.5, MCH 29.8, MCHC 33.2, RDW Std Deviation 45.4 H, RDW Coeff of Bobby 14.0, Plt Count 239, MPV 10.7, Immature Gran % (Auto) 0.200, Neut % (Auto) 58.3, Lymph % (Auto) 30.3, [place] % (Auto) 6.7, Eos % (Auto) 4.2, Baso % (Auto) 0.3, Absolute Neuts (auto) 3.5, Absolute Lymphs (auto) 1.80, Nucleated RBC % 0, Sodium 142, Potassium 3.5, C hloride 110 H, Carbon Dioxide 20.4 L, Anion Gap 11, BUN 7, Creatinine 0.41 L, Estim Creat Clear Calc 141.39, Est GFR (MDRD) Non-Af 113, BUN/Creatinine Ratio 16.6, Glucose 81, Calcium 8.4 10/14/24 05:53: POC Glucose 77 10/14/24 12:01: POC Glucose 92 Micro: Microbiology 10/13/24 18:05 Stool Enteric Bacteriology - Final 10/13/24 18:05 Stool Clostridioides difficile (PCR) - Final Rhythm Strip Rhythm Strip: Sinus bradycardia Rate: 45 Ectopy: None Cardiology Labs/Tests 10/14/24 03:49: WBC 5.9, RBC 4.20, Hgb 12.5, Hct 37.6, MCV 89.5, MCH 29.8, MCHC 33.2, Plt Count 239, MPV 10.7, Immature Gran % (Auto) 0.200, Neut % (Auto) 58.3, Lymph % (Auto) 30.3, [place] % (Auto) 6.7, Eos % (Auto) 4.2, Baso % (Auto) 0.3, Absolute Neuts (auto) 3.5, Nucleated RBC % 0, Sodium 142, Potassium 3.5, C hloride 110 H, Carbon Dioxide 20.4 L, Anion Gap 11, BUN 7, Creatinine 0.41 L, Est GFR (MDRD) Non-Af 113, BUN/Creatinine Ratio 16.6, Glucose 81, Calcium 8.4 Rhythm: EKG: ECHO: Stress Test: Cardiac Cath: PCI: CT Surgery: Holter monitor: EPS: PPM: CXR: Chest CT Scan: Physical Exam Const alert and oriented x3 HEENT normocephalic and head/scalp atraumatic Eyes PERRL and EOMs intact bilaterally Neck full ROM and no lymphadenopathy Lymph Lymphatic: no lymphadenopathy noted Chest inspection of chest normal Resp normal respiratory effort Cardio regular rate and regular rhythm Rate: bradycardia GI normal to inspection, nondistended, normoactive bowel sounds Palpation: no hepatosplenomegaly no CVA tenderness Extremity no clubbing, cyanosis or edema Skin no rashes or lesions noted Psych Psych Narrative: Have some degree of depression and according to the family significant behavioral changes over the last few month with short-term memory loss Assessment & Plan Assessment/Plan (1) Altered level of consciousness: PLAN: Based on the MRI results and the significant volume loss, I do suspect some chronicity to the above especially after talking to her family with high likelihood of a neurodegenerative disorder playing a role in the majority of her recent multiple ER clinical presentation, near syncope. She is currently back to baseline according to the family but is involved in taking care of her disabled son. We discussed in length the need for further psychosocial support and a formal neurology evaluation especially if anticholinergic medications will be utilized which may result in some more further bradycardia. Also assessing the social and home situation would be important prior to discharge planning (2) Bradycardia, sinus: PLAN: Concerning as she has symptomatic blunted heart rate response to activity and her current sinus bradycardia is obvious on the monitor without definitive pauses but heart rate in the 30s and 40s frequently recorded. Her exercise stress test demonstrated submaximal heart rate response to exercise and likely playing a partial role in her overall declining functional capacity superimposed on her neurodegenerative disease. Lyme titer is pending. Euthyroid. Not on any medications that would explain her prominent sinus bradycardia. Suspect above related to conduction system disease that may have some correlation with her underlying neurodegenerative disease. We discussed with the family the possibility of a permanent pacemaker implantation in the form of AAIR, but conduction system/EP study would be warranted before such an implantation. I doubt the syncope is completely related to sick sinus syndrome considering her underlying neurodegenerative changes/behavioral changes and abnormal MRI (3) Seizure disorder: PLAN: Continue current Keppra (4) Hypothyroidism: QUALIFIERS: Hypothyroidism type: unspecified Qualified Code(s): E 03.9 - Hypothyroidism, unspecified PLAN: Continue hormone replacement, euthyroid (5) Obesity (BMI 30.0-34.9): PLAN: Continue current management (6) Hepatic steatosis: PLAN: Likely secondary to the above obesity/dyslipidemia and metabolic disturbances
[2024-10-14] MEDS: Cholecalciferol (VIT D3) 25 MCG TABLET (1,000 UNITS) 100 MCG PO (14:51)
[2024-10-14] MEDS: Lactobacillis Acidophilus 1 CAP PO ×2 (14:52→22:22)
--- NOTE | 2024-10-14 16:18 | CASEMGMT ---
JADON SAINI NOTE: Per Dr Kang, pt noted to have some confusion/forgetfulness, MRI has been done, and pt to have evaluation for dementia/neurodegenerative disorders as an OP. Dr Kang spoke w/pt's who states is interested in pt going to a SNF d/t her memory issues. Pt has been up in room w/SBA w/no use of device and no therapy needed. RN CM to room. Introduced self and role. in room visiting w/pt and came to the door to speak w/this RN YENY. Discussed insurance and SNF's and made aware insurance would not pay for a SNF stay as she does not have a skilled need. 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 Pt's other adult children do help care for him as well and are available to help out and also to be with pt, but just not 22/09. states pt does still drive, but not often, stating he does most of the driving. RN YENY recommended that pt does not drive until further work-up has been done re: memory issues and syncopal episodes and to discuss this further with physicians. He voices understanding. provided w/Private-Pay [employer] agency list, [employer] info, [facility] info, and list of local AL's/memory care facilities. Made aware of Waiver program for AL's as well and he states he is not sure, but they may qualify. He states is not ready to have a referral made at this time for [facility] or for AL Waiver referral but voices appreciation to have this information for the future. denies having further questions or needs at this time. Jose GOMEZ RN CM
[2024-10-14] MEDS: Potassium Chloride Oral Tablet 20 MEQ 40 MEQ PO ×2 (16:26→18:12)
[2024-10-15 03:20] VITALS: BP 148/77; PULSE 52; RESP 16; TEMP 36.1; O2SAT 97
[2024-10-15 06:00] VITALS: BMI 32.2
[2024-10-15] MEDS: metroNIDAZOLE 500 MG/100 ML BAG 100 MG IV (06:15)
[2024-10-15] MEDS: Lactobacillis Acidophilus 1 CAP PO (06:15)
[2024-10-15 07:36] LABS: Hematocrit 35.8 % (37-47); Hemoglobin 11.9 g/dL (12.0-15.0); Immature Granulocytes Count 0.020 X10^3/uL (0.0-0.0); Mean Corp Hgb Conc 33.2 g/dL (32-36); Mean Corpuscular Volume 88.2 fL (81-99); Mean Platelet Vol. 10.8 fl (6.2-12.0); NRBC Flagged by Analyzer 0 % (0-5); Platelet Count 235 K/mm3 (150-450); RBC Distribution Width CV 13.7 % (11.6-14.6); RBC Distribution Width SD 44.0 fl (35.1-43.9); Red Blood Count 4.06 M/mm3 (4.2-5.4); White Blood Count 5.6 K/mm3 (4.4-11.0)
[2024-10-15 08:05] LABS: Anion Gap 10 (5-15); BUN 7 mg/dL (4-19); BUN/Creat Ratio 18.5 RATIO (10-20); Calcium,Total 8.5 mg/dL (7.6-11.0); Carbon Dioxide 22.9 mmol/L (21.0-32.0); Chloride 110 mmol/L (98-108); Estimated Creatinine Clearance 148.27 ml/min (50-250); Glucose 81 mg/dL (70-99); Potassium 3.9 mmol/L (3.3-5.1)
[2024-10-15 09:20] VITALS: BP 152/82; PULSE 51; RESP 18; TEMP 36.4; O2SAT 95
[2024-10-15] MEDS: Pantoprazole Sodium 40 MG in 0.9% Normal Saline (100mL MB+) 100 ML 330 MG IV (10:14)
--- NOTE | 2024-10-15 10:20 | NEURO.CONS ---
Assessment and Plan: Neuro Assessment/Plan KEILA GREEN is a 59 F with a past medical history of , being evaluated by Teleneurology for Diagnosis: Plan: Transfer to [facility] for the following reasons: I personally attended this patient and spent a total time of minutes evaluating this patient including clinical assessment, review of chart, medical history imaging, and determining appropriate treatment and workup. HPI Consult Data Date of Consult: 10/15/24 HPI Narrative HPI Narrative: KEILA GREEN, is a 59 F with a past medical history of essential hypertension; on losartan, hyperlipidemia; on rosuvastatin, hypothyroidism; on levothyroxine, obesity (class I); with BMI of 32.3 this admission, history of gastric bypass (~2023); with subsequent chronic abdominal pain, chronic abdominal pain; on dicyclomine QID prn, DM-2; of unknown control on metformin, history of recurrent syncope; with ER visit in July of this year with patient reporting falling 18 times in 1 week with additional complaints of orthostatic lightheadedness, seizure disorder; levetiracetam BID, neuropathy; on gabapentin TID, depression with anxiety; on sertraline and olanzapine, muscle spasms; on prn tizanidine, MARYCHUY; on ferrous sulfate BID, history of hernia; s/p repair and OA; s/p lumbar fusion and neck surgery who presents to [facility] ER complaining of altered mental status, syncope and abdominal pain. Ms. Green reports her symptoms began approximately at ~2:00 PM today when she had a syncopal episode followed by a brief period of confusion. She also admits to associated chest pain that was pressure-like, substernal, moderate and seemed to be radiating from her abdomen into her chest with nothing making the pain better or worse. She also had primarily upper abdominal pain that was intermittent and [id number] that radiated up into her chest with patient stating she has been having similar but less severe issues in the past since her gastric bypass. She denies associated fever, chills, visual changes, runny nose, sore throat, ear pain, SOB, cough, palpitations, heart racing, LE edema, dysuria, hematuria, headache, rash or focal neurologic weakness. She was admitted 10/11. Nuerology consulted for forgetfulness. Neurologic History Neurologic Exam -? General: Laying comfortably in bed; in no acute distress. -? HENT: Normal oropharynx and mucosa. Normal external appearance of ears and nose. Exophthalmos. -? Neck: Supple, no pain or tenderness -? CV:? No peripheral edema. -? Pulmonary:? Normal respiratory effort. -? Ext: No cyanosis, edema, or deformity -? Skin: No rash. Normal palpation of skin.? -? Musculoskeletal: full range of motion; no joint tenderness. Normal digits and nails by inspection. No clubbing. -? NEURO: -? Mental Status: The patient was alert and oriented to time, place, and person. Normal recent/remote memory, concentration, and general fund of knowledge. -? Language: speech is .? Naming, repetition, fluency, and comprehension intact. -? Cranial Nerves: PERRL mm/brisk. EOMI, visual ramirez full, no facial asymmetry, facial sensation intact, hearing intact, tongue midline, no evidence of atrophy or fibrillations. As performed by the nurse/MANDA Sternocleidomastoid and trapezius were equally strong. Soft palate raises equally, no uvular deviations -? Motor: normal bulk, tone, and strength throughout. No pronator drift or satelliting. Upper and lower extremities equal bilaterally. -? Detailed strength exam as performed by the nurse/MANDA and witnessed by the physician: R L SA EE EF WE WF Towing Pilot HF KE KF DF PF -? Detailed reflex exam as performed by the nurse/MANDA and witnessed by the physician: R L Biceps Patellar Ankle Babinski -? Tone: is normal and bulk is normal -? Sensation- Intact to light touch bilaterally -? Coordination: No dysmetria on [id number], finger follow finger or [id number]. -? Gait- Gait initiation was normal. Narrow base with good heel strike and stride length was observed during ambulation. Turns were in stride. Patient was able to walk normally in tandem. Romberg was normal. [facility] Medical History Depression Anxiety Hypertension Hyperthyroidism Home Medications ?Medication ?Instructions ?Recorded ?Last Taken ?Type metformin 1,000 mg 24 hr 1,000 mg PO DAILY 10/08/15 10/11/24 History tablet,extended release (gastric reten.) dicyclomine 20 mg tablet 20 mg PO 4X/DAY PRN PRN abdominal 06/05/24 Unknown History pain hydroxyzine HCl 25 mg tablet 25 mg PO PRN 06/05/24 Unknown History levetiracetam 500 mg tablet 500 mg PO BID 06/05/24 10/11/24 History levothyroxine 112 mcg tablet 112 mcg PO DAILY 06/05/24 10/11/24 History losartan 25 mg tablet 25 mg PO DAILY 06/05/24 10/11/24 History olanzapine 10 mg tablet 10 mg PO DAILY 06/05/24 Unknown History ramelteon 8 mg tablet 8 mg PO QHS 06/05/24 10/10/24 History rosuvastatin 20 mg tablet 20 mg PO QHS 06/05/24 10/10/24 History sertraline 100 mg tablet 150 mg PO QHS 06/05/24 10/10/24 History zolpidem 5 mg tablet 5 mg PO QHS PRN PRN insomnia 06/05/24 Unknown History ferrous sulfate 325 mg (65 mg 325 mg PO BID 08/17/24 10/11/24 History iron) tablet gabapentin 300 mg capsule 300 mg PO TID 08/17/24 10/11/24 History cholecalciferol (vitamin D3) 50 100 mcg PO DAILY 10/11/24 10/11/24 History mcg (2,000 unit) capsule docusate sodium 100 mg capsule 100 mg PO BID 10/11/24 10/11/24 History sennosides 8.6 mg tablet (Alfreda-johana) 17.2 mg PO QHS 10/11/24 10/10/24 History tizanidine 4 mg tablet 4 mg PO Q8H PRN PRN muscle spasm 10/11/24 Unknown History Allergy/AdvReac Type Severity Reaction Status Date / Time diphenhydramine (From Allergy Anaphylaxis Verified 10/11/24 16:07 Benadryl) morphine Allergy Anaphylaxis Verified 10/11/24 16:07 vancomycin Allergy Anaphylaxis Verified 10/11/24 16:07 Family History no significant family his Surgical History H/O spinal fusion H/O hernia repair Social History (Updated 10/12/24 @ 09:32 by ADIA Penny) household members: spouse and other details: son history of recent travel: No Smoking Status: Never smoker alcohol intake: never substance use type: does not use do you feel safe at home: Yes Vital Signs Vital Signs Vital Signs: 10/14/24 12:29 10/14/24 14:06 10/14/24 18:21 Temperature 98.7 F 98.9 F Temperature Source Oral Oral Pulse Rate 45 L 51 L Pulse Strength Respiratory Rate 16 16 Respiratory Effort Normal Non-Labored Respiratory Depth Normal Respiratory Pattern Normal Blood Pressure 147/72 H 147/75 H Blood Pressure Mean 97 99 Blood Pressure Source Monitor Blood Pressure Position Semi-Fowlers Blood Pressure Location Right Arm Pulse Ox 94 95 Oxygen Delivery Method Room Air Room Air Room Air 10/14/24 18:22 10/14/24 21:00 10/14/24 22:00 Temperature 98.9 F Temperature Source Oral Pulse Rate 53 L Pulse Strength Normal (2+) Respiratory Rate 16 Respiratory Effort Normal Non-Labored Respiratory Depth Normal Respiratory Pattern Normal Blood Pressure 147/75 H Blood Pressure Mean 99 Blood Pressure Source Monitor Blood Pressure Position Semi-Fowlers Blood Pressure Location Right Arm Pulse Ox 95 Oxygen Delivery Method Room Air Room Air 10/14/24 22:15 10/15/24 03:20 10/15/24 03:20 Temperature 98.2 F 97.0 F L Temperature Source Oral Oral Pulse Rate 55 L 52 L Pulse Strength Respiratory Rate 16 16 Respiratory Effort Normal Non-Labored Respiratory Depth Normal Respiratory Pattern Normal Blood Pressure 150/90 H 148/77 H Blood Pressure Mean 110 100 Blood Pressure Source Monitor Monitor Blood Pressure Position Semi-Fowlers Supine Blood Pressure Location Right Arm Right Arm Pulse Ox 99 97 Oxygen Delivery Method Room Air Room Air Room Air 10/15/24 03:20 Temperature 97.0 F L Temperature Source Oral Pulse Rate 52 L Pulse Strength Respiratory Rate 16 Respiratory Effort Respiratory Depth Respiratory Pattern Blood Pressure 148/77 H Blood Pressure Mean 100 Blood Pressure Source Blood Pressure Position Blood Pressure Location Pulse Ox 97 Oxygen Delivery Method Room Air Weight Weight: 79.9 kg Body Mass Index (BMI) 32.2 EEG Results Procedure Details EEG Procedure Details: KEILA GREEN is a 59 year old F with a past medical history of , who presents for evaluation of Electroencephalogram on DATE at TIME Lab / Micro Data 10/15/24 07:03 10/15/24 07:03 Labs: Laboratory Results - last 24 hr 10/13/24 05:22: Lyme Total Antibody Negative 10/14/24 12:01: POC Glucose 92 10/14/24 18:16: POC Glucose 121 H 10/14/24 22:21: POC Glucose 83 10/14/24 23:43: POC Glucose 84 10/15/24 06:13: POC Glucose 84 10/15/24 07:03: WBC 5.6, RBC 4.06 L, Hgb 11.9 L, Hct 35.8 L, MCV 88.2, MCH 29.3, MCHC 33.2, RDW Std Deviation 44.0 H, RDW Coeff of Bobby 13.7, Plt Count 235, MPV 10.8, Immature Gran % (Auto) 0.400, Neut % (Auto) 61.5, Lymph % (Auto) 26.4, [place] % (Auto) 7.5, Eos % (Auto) 3.7, Baso % (Auto) 0.5, Absolute Neuts (auto) 3.5, Absolute Lymphs (auto) 1.48, Nucleated RBC % 0, Sodium 142, Potassium 3.9, Chloride 110 H, Carbon Dioxide 22.9, Anion Gap 10, BUN 7, Creatinine 0.40 L, Estim Creat Clear Calc 148.27, Est GFR (MDRD) Non-Af 114, BUN/Creatinine Ratio 18.5, Glucose 81, Calcium 8.5 Rhythm Strip Rhythm Strip: Sinus bradycardia Rate: 45 Ectopy: None Active Medications Active Medications Active Medications: Current Medications Generic Name Dose Route Start Last Admin Trade Name Freq PRN Reason Stop Dose Admin Atorvastatin Calcium 40 mg 10/11/24 22:00 10/14/24 22:22 Atorvastatin Calcium 40 Mg Tablet PO 40 mg QHS CAMRYN Administration Cholecalciferol 100 mcg 10/12/24 10:00 10/14/24 14:51 Cholecalciferol (Vit D3) 25 Mcg Tablet (1,000 Units) PO 100 mcg DAILY CAMRYN Administration Cyanocobalamin 1,000 mcg 10/14/24 14:50 10/14/24 16:26 Cyanocobalamin 500 Mcg Tablet PO 1,000 mcg BREAKFAST CAMRYN Administration Dicyclomine HCl 20 mg 10/11/24 21:08 10/14/24 20:14 Dicyclomine 10 Mg Capsule PO 20 mg 4X/DAY PRN PRN Administration abdominal pain Docusate Sodium 100 mg 10/11/24 22:00 10/14/24 22:22 Docusate Sodium 100 Mg Capsule PO Not Given BID [facility] Enoxaparin Sodium 40 mg 10/12/24 10:00 10/14/24 07:25 Enoxaparin 40 Mg/0.4 Ml Syringe SC Not Given DAILY [facility] Ferrous Sulfate 325 mg 10/12/24 12:00 10/14/24 18:12 Ferrous Sulfate 325 Mg Tablet PO 325 mg 1200,1700 [facility] Administration Gabapentin 300 mg 10/11/24 22:00 10/15/24 06:17 Gabapentin 300 Mg Capsule PO 300 mg TID CAMRYN Administration Glucagon 1 mg 10/11/24 20:43 Glucagon 1 Mg/Ml Syringe IM X1 PRN HYPOGLYCEMIA Protocol Hydralazine HCl 10 mg 10/11/24 20:43 Hydralazine 20 Mg/Ml Vial IV Q8H PRN PRN prn sbp >160 Protocol Hydroxyzine Pamoate 25 mg 10/11/24 20:43 10/13/24 21:51 Hydroxyzine Kaelyn 25 Mg Capsule PO 25 mg 4X/DAY PRN PRN Administration PANIC ATTACKS Metronidazole 500 mg in 100 mls @ 100 mls/hr 10/12/24 06:00 10/15/24 07:51 Flagyl IV Infused TID [facility] Infusion Ceftriaxone Sodium 1 gm in 50 mls @ 100 mls/hr 10/12/24 10:00 10/14/24 11:40 Rocephin IV Infused Q24 CAMRYN Infusion Pantoprazole Sodium 40 mg/ 100 mls @ 330 mls/hr 10/11/24 20:43 10/15/24 10:14 Sodium Chloride IV 330 mls/hr Q24 CAMRYN Administration Dextrose 250 mls @ 0 mls/hr 10/11/24 20:43 Dextrose 10%-Water IV .Q0M PRN HYPOGLYCEMIA Protocol As Directed Sodium Chloride 250 mls @ 15 mls/hr 10/14/24 12:08 IV .[id number] PRN Saline Flush Sodium Chloride 250 mls @ 15 mls/hr 10/14/24 12:08 IV .[id number] PRN Additional IVPB Infusion Insulin Human Lispro 0 unit 10/12/24 00:00 10/15/24 06:14 Insulin Lispro 100 Unit/Ml Insuln.Pen SC Not Given Q6 CAMRYN Protocol Ketorolac Tromethamine 15 mg 10/11/24 20:43 10/14/24 18:33 Ketorolac 15 Mg/Ml Vial IV 10/16/24 20:44 15 mg TID PRN PRN Administration Pain 1-10 or Fever Levetiracetam 500 mg 10/11/24 22:00 10/14/24 22:22 Levetiracetam 500 Mg Tablet PO 500 mg BID CAMRYN Administration Levothyroxine Sodium 112 mcg 10/12/24 06:00 10/15/24 06:15 Levothyroxine 112 Mcg Tablet PO 112 mcg DAILY@0600 CAMRYN Administration Losartan Potassium 25 mg 10/12/24 10:00 10/14/24 05:48 Losartan Potassium 25 Mg Tablet PO 25 mg DAILY CAMRYN Administration Protocol Olanzapine 10 mg 10/12/24 10:00 10/14/24 14:52 Olanzapine 10 Mg Tablet PO 10 mg DAILY CAMRYN Administration Protocol Ondansetron HCl 4 mg 10/11/24 20:43 Ondansetron 4 Mg/2 Ml Vial IV Q4H PRN PRN NAUSEA/VOMITING Potassium Chloride 40 meq 10/14/24 15:01 10/14/24 18:12 Potassium Chloride Oral Tablet 20 Meq PO 10/16/24 15:02 40 meq BIDCM CAMRYN Administration Senna 2 tablet 10/11/24 22:00 10/14/24 22:22 Senna Tablet PO Not Given QHS CAMRYN Sertraline HCl 100 mg 10/13/24 22:00 10/14/24 22:22 Sertraline 100 Mg Tablet PO 100 mg QHS CAMRYN Administration Sodium Chloride 10 - 40 ml 10/11/24 20:59 10/14/24 18:33 0.9% Saline Lock 10 Ml Syringe IV 10 ml UD PRN Administration SALINE FLUSH Tizanidine HCl 4 mg 10/11/24 21:09 Tizanidine Hcl 2 Mg Tablet PO Q8H PRN PRN muscle spasm Zolpidem Tartrate 5 mg 10/11/24 20:43 10/13/24 21:52 Zolpidem Tartrate 5 Mg Tablet PO 5 mg QHS PRN PRN Administration insomnia
--- NOTE | 2024-10-15 10:26 | DCINST_ITS ---
Discharge Instructions DC O2, CPAP, BIPAP needs Home O2 Discharge instructions: No Dressing / Incision Discharge Activity: Return to Normal Activity Weight Bearing Status: Weight bearing as tolerated Dressing / Incision Call your doctor if you observe: Fever of 101 or Higher, Coldness, Increased Pain, Numbness or Tingling, Change in Color, Inability to urinate, Inability to have a bowel movement, Shortness of breath, Dizziness, Fainting spells, Swelling in the ankles, Chest pain, Prolonged hiccupping, Increased palpitations (irregular heartbeat) and Calf discomfort Follow Up Care When: IN 2 WEEKS Test Results: Test results from this visit will be discussed in further detail at your follow- up appointment, if applicable. Discharge Plan Admission Admit Date/Time: 10/11/24 20:03 Primary Reason for Your Visit: Diverticulitis, diarrhea. Sinus bradycardia, syncope Attending Provider: César Kang Primary Care Provider: Ruslan Gutierrez Consulting Providers: Saba Park; Candace Herrera; Isela Pascual; Emmanuel Lion; Son Dubose; Ann Cruz; MATTIE MADISON; Veronica Butcher; Sandy Nunes; Juan Manuel Craven; Halle Farnsworth; Huma Badillo; Melodie Barton; Irma Kiser; Power Momin; Juve Ahuja; Robert Sanchez; eRne Faye; Ralph Musa; Ramu Mercado; Lizbeth Patterson; Ruslan Nicolas; Thelma Ferguson; Tomasa Beckham; SatraulSalvatore; Keith,Carlos; Truong Meza NP; Luz Cameron; Delta Mayorga; Ramu Cornelius; Sahun Ott; Charissa Guerrero; Sun Flores; Nikolas Manuel; Melody Pichardo; Kilo Cornelius; Sheng Yang; Mp Cabezas; Wolf Leon; Adenike Smith; Denny Michele; Marissa Blankenship; Sal Reed; Kelsi Cota; Dario Guaman Discharge Orders/Prescriptions Prescriptions: New cyanocobalamin (vitamin B-12) 1,000 mcg tablet 1,000 mcg PO BREAKFAST 30 Days Qty: 30 0RF L.acidoph,saliva-B.bif-S.therm 175 mg Capsule 1 cap PO TID Qty: 0 0RF Rx Instructions: Srht-cax-sfambwt for 2 weeks venlafaxine [Effexor XR] 75 mg capsule,extended release 24hr 75 mg PO DAILY 30 Days Qty: 30 0RF amoxicillin-pot clavulanate 875-125 mg tablet 1 tab PO BID 8 Days Qty: 16 0RF Continued metformin 1,000 MG tablet,ER jane.retention 24 hr 1,000 mg PO DAILY Patient Comments: diabetes levetiracetam 500 mg tablet 500 mg PO BID olanzapine 10 mg tablet 10 mg PO DAILY dicyclomine 20 mg tablet 20 mg PO 4X/DAY PRN PRN (Reason: abdominal pain) losartan 25 mg tablet 25 mg PO DAILY hydroxyzine HCl 25 mg tablet 25 mg PO PRN zolpidem 5 mg tablet 5 mg PO QHS PRN PRN (Reason: insomnia) levothyroxine 112 mcg tablet 112 mcg PO DAILY rosuvastatin 20 mg tablet 20 mg PO QHS ramelteon 8 mg tablet 8 mg PO QHS gabapentin 300 mg capsule 300 mg PO TID cholecalciferol (vitamin D3) 50 mcg (2,000 unit) capsule 100 mcg PO DAILY sennosides [Alfreda-johana] 8.6 mg tablet 17.2 mg PO QHS tizanidine 4 mg tablet 4 mg PO Q8H PRN PRN (Reason: muscle spasm) docusate sodium 100 mg capsule 100 mg PO BID Changed ferrous sulfate 325 mg (65 mg iron) tablet 325 mg PO QODAY 30 Days Qty: 0 0RF Discontinued sertraline 100 mg tablet 150 mg PO QHS Other Ambulatory Orders: 14 Day Event Recorder Preventi (Urgent) Timeframe: 1 Day Facility: [facility] - Location: Cardiovascular Services Ordered By: Dr. Tomasa Beckham Referrals / Follow Up: Ruslan Gutierrez DO [Primary Care Provider] - Ruslan Nicolas MD [Med Staff - Active Staff] - Within 2 Weeks (For recurrent syncope, severe bradycardia) Ronald Mejia MD [Non-Staff -Ordering Privileges] - Within 2 Weeks (Workup for dementia) Salvatore Woodward MD [Med Staff - Active Staff] - Within 1 Month Erin Jennings MD [Med Staff - Active Staff] - Within 1 Month (Sigmoid diverticulitis) Disposition Disposition (needs filled in before D/C Order can be placed): Home Health Service
[2024-10-15] MEDS: 0.9% Saline Lock 10 ML Syringe IV (10:33)
[2024-10-15] MEDS: Cholecalciferol (VIT D3) 25 MCG TABLET (1,000 UNITS) 100 MCG PO (10:37)
[2024-10-15] MEDS: Potassium Chloride Oral Tablet 20 MEQ 40 MEQ PO (10:38)
[2024-10-15 12:00] VITALS: BP 148/77; PULSE 52; RESP 16; TEMP 36.1; O2SAT 97
[2024-10-15 12:42] VITALS: BP 152/82; PULSE 51; RESP 18; TEMP 36.4; O2SAT 95
--- NOTE | 2024-10-15 13:04 | DS.PCM_ITS ---
Providers Date of Admission: 10/11/24 Date of Discharge: 10/15/24 Primary Care Physician: Dr. Emma Harmon, DO Consultations 10/11/24 20:43 Consult: Cardiology Routine Consulting Provider: [facility] Reason for Consult: Syncope and Bradycardia; recurrent. EMERGENT Consult: No MD Notified: Yes Date Notified: 10/12/24 Time Notified: 06:30 Method of Notification: Text Method of Consult:: In-Person 10/12/24 03:34 Consult: Gastroenterology Routine Consulting Provider: [facility] Reason for Consult: Persistent abdominal pain after gastric bypass. EMERGENT Consult: No MD Notified: Yes Date Notified: 10/12/24 Time Notified: 06:31 Method of Notification: Text 10/15/24 09:44 Tele [Consult: Tele-Neurology] Routine Consulting Provider: [facility] Reason for Consult: dementia, forgetfullness, MRI and EEG no acute EMERGENT Consult: No MD Notified: Yes Date Notified: 10/15/24 Time Notified: 09:44 Method of Notification: Answering Service Nursing Unit Staff Notify [facility] of Tele-Neurology Consult: Yes Reason For Visit: ACUTE DIVERTICULITIS, ABDOMINAL PAIN, SYNCOPE, Diagnosis Discharge Diagnosis (1) Acute diverticulitis: Status: Acute Code(s): K57.92 - Diverticulitis of intestine, part unspecified, without perforation or abscess without bleeding (2) Abdominal pain: Status: Acute Code(s): R10.9 - Unspecified abdominal pain Qualifiers: Abdominal location: generalized Qualified Code(s): R10.84 - Generalized abdominal pain (3) Pancreatic cyst: Status: Acute Code(s): K86.2 - Cyst of pancreas (4) Syncope: Status: Acute Code(s): R55 - Syncope and collapse Qualifiers: Syncope type: unspecified Qualified Code(s): R55 - Syncope and collapse (5) Bradycardia, sinus: Status: Acute Code(s): R00.1 - Bradycardia, unspecified (6) Prolonged QT interval: Status: Acute Code(s): R94.31 - Abnormal electrocardiogram [ECG] [EKG] (7) Chest pain: Status: Acute Code(s): R07.9 - Chest pain, unspecified Qualifiers: Chest pain type: unspecified Qualified Code(s): R07.9 - Chest pain, unspecified (8) Hypokalemia: Status: Acute Code(s): E87.6 - Hypokalemia (9) Hypothyroidism: Status: Acute Code(s): E03.9 - Hypothyroidism, unspecified Qualifiers: Hypothyroidism type: unspecified Qualified Code(s): E03.9 - Hypothyroidism, unspecified (10) Obesity (BMI 30.0-34.9): Status: Acute Code(s): E66.811 - Obesity, class 1 (11) Hepatic steatosis: Status: Acute Code(s): K76.0 - Fatty (change of) liver, not elsewhere classified (12) History of gastric bypass: Status: Acute Code(s): Z98.84 - Bariatric surgery status (13) Seizure disorder: Status: Acute Code(s): G40.909 - Epilepsy, unspecified, not intractable, without status epilepticus (14) Altered level of consciousness: Status: Acute Code(s): R40.4 - Transient alteration of awareness (15) Type II diabetes mellitus: Status: Chronic Code(s): E11.9 - Type 2 diabetes mellitus without complications Qualifiers: Diabetes mellitus senior living insulin use: without senior living use Diabetes mellitus complication status: with other specified complication Qualified Code(s): E11.69 - Type 2 diabetes mellitus with other specified complication Plan 59-year-old female admitted with bilateral lower quadrant abdominal pain with radiation to the chest and syncope. Gradually worsening abdominal pain for 1 week.Patient complaining of progressive worsening of abdominal pain for about 1 week with blood mixed stool for last 3 to 4 days. She also had loose bowel movement for 3 to 4 weeks but yesterday she felt constipation and rectal pressure. The patient passed out often since around 2 PM and the brief period of confusion afterwards. No prior history of syncope. Complain of bilateral lower quadrant abdominal pain. She also complained of chest pressure that felt like, substernal radiating from her abdomen yesterday. Denies chronic heart disease or lung disease 1. Mild/early diverticulitis involving descending colon: Patient had gastric bypass surgery in the past. She is being admitted in PCU. CT abdomen reported early diverticulitis with unchanged 1.5 cm benign-appearing cyst in the pancreatic head/neck. Patient started on IV ceftriaxone and metronidazole, continued. Pain controlled. Promethazine discontinued Colonoscopy in January 2020 for benign cecal polypoid fragment otherwise unremarkable. Denies family history of colon cancer. No prior personal history of diverticulitis. 10/13: Mild abdominal pain diarrhea getting better. 10/14: Patient continues to have diarrhea. Stool for C. difficile enteric pathogen panel negative. Ova parasite pending. Giardia EIA ordered 10/15: Abdominal pain has resolved. Stool for Giardia and ova parasite takes time. Diarrhea has stopped. Discharged on Augmentin 875 mg p.o. twice daily total of 12 days of antibiotics. OTC probiotic/lactobacillus for 2 weeks. Follow-up surgeon Dr. Jennings in 1 month 2. Syncopal event with Sinus Bradycardia since July 2024 with heart rate of ~45 bpm and Prolonged QT-interval: Patient probably had radiating chest pain from abdomen. 2D echo reviewed. Left ventricular systolic function is normal with estimated EF 60%. Normal RV size. Upper normal to mild pulmonary hypertension. Moderate MR. She also has a history of orthostatic hypotension. She had warning prodrome of feeling dizziness passed out. Patient not on significant rate controlling medication. Serial troponins are normal with no significant delta change. proBNP normal. Patient evaluated by lidar analyst as per H&P note and lidar analyst patient has history of syncope up to 18 episodes over several weeks prior to the end of July 2024. Probably related to diarrhea, chronic in nature. Advised ambulation with telemetry strip to document chronotropic response to activity. 10/13: Patient was evaluated by lidar analyst. Overnight heart rate dropped in mid 30s but asymptomatic. Injector Assembler recommended exercise nuclear stress test in the morning to see chronotropic response to exercise. After ischemia is ruled out, probability of conduction system disease or infiltrative disease including Lyme disease, possibility of sarcoidosis/AK lordosis. Lyme titer ordered. Down titration of Zoloft SSRI consider Effexor in place of Zoloft with slow titrate 10/14: Discussed with the lidar analyst. Patient had treadmill nuclear stress test but heart rate well reduced to the 70 to 80/min, not the maximum desired therefore was converted to chemical nuclear stress test. Peak heart rate less than 55% of target heart rate. No definite evidence of ischemia or infarction. EF 75%. Still the cause of the sinus bradycardia not clear. Neurologist was trying to rule Linq with the volume loss seen in the MRI brain regarding infiltrative disease. We agreed on outpatient follow-up with the neurologist and evaluation for dementia/neurodegenerative disorders. Most likely plan is discharged with potline monitor and follow-up with EP to evaluate for pacemaker. Lyme total antibodies negative. 10/15: Discussed with the lidar analyst, Dr. Sampson, relationship manager and he agreed with the discharge with event monitor and follow-up with lidar analyst Dr. Emma Nicolas and circuit court magistrate. Patient not on rate control medications including beta-preston, CCB or amiodarone. Sertraline changed to Effexor as Effexor have some catecholamine release properties 3. Hypokalemia of 3.1 mmol/L present on admission compounding #1 & #2 - Give supplemental KCl and then recheck level in AM to confirm repletion. Potassium low normal 3.5. Replaced 10/15 hypokalemia resolved 4. Hypothyroidism; on levothyroxine with mildly elevated TSH of 4.31 present on admission: Continue levothyroxine. Free T4 and free T3 normal. 5. Obesity (class I); with BMI of 32.3 KG per meter squared with diffuse hepatic steatosis/MASLD with history of Gastric Bypass: Adding to the medical complexity and comorbidity 6. Seizure disorder; levetiracetam BID with AMS and suspicion for possible seizure-induced syncope - Resume levetiracetam as previous EEG ordered. MRI brain done and shows no acute abnormality. Echo vascular ischemia and volume loss. 7. DM-2; of unknown control on metformin - FSBS q. 6 hours plus lowest- intensity SSI. A1c 5.2%. 8. Essential hypertension; on losartan - Continue losartan as previous. 9. Hyperlipidemia; on rosuvastatin - Resume statin 10. Pancreatic cyst: Patient is not a family history of pancreatic cancer. Denies history of pancreatitis, smoking or alcohol use. Stable since August 2023. No ductal dilatation. 11. Neuropathy; on gabapentin TID - Current therapy to be continued. 12. Depression with anxiety; on sertraline and olanzapine - Maintain home regimen. 10/15: Had detailed discussion with the neurologist Dr. Herrera and she agreed with no acute issues but dementia which will need outpatient workup. Follow-up with the urologist as mentioned discharge instruction 13. Chronic MARYCHUY; on ferrous sulfate BID - Stable with hemoglobin of 11.9 g/dL and MCV of 86.6 fL present on admission. Repeat hemoglobin 12.3/36.9%. 14 OA; s/p lumbar fusion and neck surgery -on pain control DVT prophylaxis - Enoxaparin 40 mg sq daily plus SCD's. Discharge medication reconciliation done. Discharge follow-up instructions completed. Discharge process discussed with the patient and all questions were answered to patient's satisfaction. Follow with PCP in 1 to 2 weeks Total time spent, exact 35 minutes on discharge meds reconciliation, examination, coordination of care with nurses and ancillary staff, review of imaging and blood test and discussion with the patient on follow-up instructions. Microbiology Past 72 Hours 10/13/24 18:05 Stool Enteric Bacteriology - Final 10/13/24 18:05 Stool Clostridioides difficile (PCR) - Final Laboratory Results 10/13/24 05:22: Lyme Total Antibody Negative 10/13/24 16:59: POC Glucose 72 L 10/14/24 03:49: WBC 5.9, RBC 4.20, Hgb 12.5, Hct 37.6, MCV 89.5, MCH 29.8, MCHC 33.2, RDW Std Deviation 45.4 H, RDW Coeff of Bobby 14.0, Plt Count 239, MPV 10.7, Immature Gran % (Auto) 0.200, Neut % (Auto) 58.3, Lymph % (Auto) 30.3, [place] % (Auto) 6.7, Eos % (Auto) 4.2, Baso % (Auto) 0.3, Absolute Neuts (auto) 3.5, Absolute Lymphs (auto) 1.80, Nucleated RBC % 0, Sodium 142, Potassium 3.5, C hloride 110 H, Carbon Dioxide 20.4 L, Anion Gap 11, BUN 7, Creatinine 0.41 L, Estim Creat Clear Calc 141.39, Est GFR (MDRD) Non-Af 113, BUN/Creatinine Ratio 16.6, Glucose 81, Calcium 8.4 10/14/24 05:53: POC Glucose 77 10/14/24 12:01: POC Glucose 92 Clinical Impression(s) from Imaging Studies Abdomen/Pelvis CT 10/11/24 17:05 IMPRESSION: 1. Probable mild/early diverticulitis focally involving the descending colon. 2. Small nonobstructive left renal stone. No hydroureteronephrosis. 3. Diffuse hepatic steatosis. 4. Unchanged 1.5 cm benign-appearing cyst in the pancreatic head/neck. 5. Chronic and postoperative ancillary findings as described above. Reading Location: [id number] Brain CT 10/11/24 17:05 IMPRESSION: No acute intracranial abnormality. Mild generalized brain parenchymal volume loss and chronic microangiopathic changes, which appears somewhat advanced for patient's age. Reading Location: [id number] Chest X-Ray 10/11/24 18:13 IMPRESSION: NO SIGNIFICANT CHANGE SINCE THE PRIOR EXAM. Reading Location: [id number] Echocardiogram 10/11/24 20:12 Interpretation Summary The global longitudinal strain = --21.4 % (normal). Normal diastology for age. Left ventricular systolic function is normal. Estimated left ventricular ejection fraction 60% Normal LV size. Normal left ventricular thickness. Normal right ventricular size and function TAPSE is 2 m. At least moderate mitral regurgitation, with no evidence of prolapse or myxomatous changes Pulmonary artery systolic pressure is 40 mmHg. Top normal or very mild pulmonary hypertension Ordering Physician: Ramu Cornelius Referring Physician: EMMA HARMON Performed By: Kasey Freitas RDCS Brain MRI 10/12/24 11:00 IMPRESSION: No acute abnormality. Mild changes of chronic microvascular ischemia and volume loss. Reading Location: [id number] Medications at Discharge Home Medications metformin 1,000 mg 24 hr tablet,extended release (gastric reten.) 1,000 mg PO DAILY diabetes 10/08/15 dicyclomine 20 mg tablet 20 mg PO 4X/DAY PRN PRN abdominal pain 06/05/24 hydroxyzine HCl 25 mg tablet 25 mg PO PRN itching 06/05/24 levetiracetam 500 mg tablet 500 mg PO BID seizures 06/05/24 levothyroxine 112 mcg tablet 112 mcg PO DAILY thyroid 06/05/24 losartan 25 mg tablet 25 mg PO DAILY blood pressure 06/05/24 olanzapine 10 mg tablet 10 mg PO DAILY mental health 06/05/24 ramelteon 8 mg tablet 8 mg PO QHS sleep 06/05/24 rosuvastatin 20 mg tablet 20 mg PO QHS cholesterol 06/05/24 zolpidem 5 mg tablet 5 mg PO QHS PRN PRN insomnia 06/05/24 gabapentin 300 mg capsule 300 mg PO TID nerve pain 08/17/24 cholecalciferol (vitamin D3) 50 mcg (2,000 unit) capsule 100 mcg PO DAILY vitamin 10/11/24 docusate sodium 100 mg capsule 100 mg PO BID stool softner 10/11/24 sennosides 8.6 mg tablet (Alfreda-johana) 17.2 mg PO QHS constipation 10/11/24 tizanidine 4 mg tablet 4 mg PO Q8H PRN PRN muscle spasm 10/11/24 L.acidophil,salivari-Bifido bifidum-Strep thermoph 175 mg capsule 1 cap PO TID #0 caps 10/15/24 amoxicillin 875 mg-potassium clavulanate 125 mg tablet 1 tab PO BID 8 days #16 tabs 10/15/24 cyanocobalamin (vitamin B-12) 1,000 mcg tablet 1,000 mcg PO BREAKFAST 30 days #30 tabs 10/15/24 ferrous sulfate 325 mg (65 mg iron) tablet 325 mg PO QODAY supplement 30 days #0 tabs 10/15/24 venlafaxine 75 mg capsule,extended release 24 hr (Effexor XR) 75 mg PO DAILY 1 month #30 caps 10/15/24 Physical Exam Narrative Seen and examined. No BM for 1 day. Stool for C. difficile and enteric pathogen panel negative. Still in sinus bradycardia in 50s. No abdominal pain. No associated shortness of breath. Did not feel like slow heartbeat or heart stop. Had a stress test. And did not had chronotropic response to treadmill exercise. Physical exam General: Alert, Oriented x3, Cooperative HEENT: Atraumatic, PERRLA, EOMI, Normocephalic. Oral: No Gingival or Mucosal Lesions/ Ulcerations Neck: Supple, No JVD, Negative Carotid Bruits Chest wall/Lungs: Air entry diminished in bilateral lung bases. No crepitation/rhonchi Cardiovascular: Sinus bradycardia, Normal S1,S2, No M/G/R Abdomen: Bowel Sounds Present, Soft, tenderness over bilateral lower quadrants. Nondistended : No dysuria. No renal angle tenderness. No suprapubic tenderness. Extremities: No edema, Capillary Refill Less than 3 Seconds Skin: No rashes, No breakdown Musculoskeletal: No Tenderness to Palpation of Joints or Extremities Neurological: Cranial nerves II-XII grossly intact, DTR 2+/4. No acute focal neurological deficit. Psych/Mental Status: Normal Affect, Appropriate. Weight / BMI Weight Weight: 176 lb 2.389 oz Body Mass Index (BMI) 32.2 ABG / Lab / Microbiology Data 10/15/24 07:03 10/15/24 07:03 Laboratory: Laboratory Results - last 24 hr 10/13/24 05:22: Lyme Total Antibody Negative 10/14/24 18:16: POC Glucose 121 H 10/14/24 22:21: POC Glucose 83 10/14/24 23:43: POC Glucose 84 10/15/24 06:13: POC Glucose 84 10/15/24 07:03: WBC 5.6, RBC 4.06 L, Hgb 11.9 L, Hct 35.8 L, MCV 88.2, MCH 29.3, MCHC 33.2, RDW Std Deviation 44.0 H, RDW Coeff of Bobby 13.7, Plt Count 235, MPV 10.8, Immature Gran % (Auto) 0.400, Neut % (Auto) 61.5, Lymph % (Auto) 26.4, [place] % (Auto) 7.5, Eos % (Auto) 3.7, Baso % (Auto) 0.5, Absolute Neuts (auto) 3.5, Absolute Lymphs (auto) 1.48, Nucleated RBC % 0, Sodium 142, Potassium 3.9, Chloride 110 H, Carbon Dioxide 22.9, Anion Gap 10, BUN 7, Creatinine 0.40 L, Estim Creat Clear Calc 148.27, Est GFR (MDRD) Non-Af 114, BUN/Creatinine Ratio 18.5, Glucose 81, Calcium 8.5 Microbiology: Microbiology 10/13/24 18:05 Stool Enteric Bacteriology - Final 10/13/24 18:05 Stool Clostridioides difficile (PCR) - Final D/C Instructions Weight Bearing Status: Weight bearing as tolerated Call your doctor if you observe: Fever of 101 or Higher, Coldness, Increased Pain, Numbness or Tingling, Change in Color, Inability to urinate, Inability to have a bowel movement, Shortness of breath, Dizziness, Fainting spells, Swelling in the ankles, Chest pain, Prolonged hiccupping, Increased palpitations (irregular heartbeat) and Calf discomfort DC O2, CPAP, BIPAP Needs Home O2 Discharge instructions: No When: IN 2 WEEKS Meaningful Use Info Meaningful Use Meaningful Use Diagnoses (Choose all that apply): None applicable Discharge Plan Admission Admit Date/Time: 10/11/24 20:03 Primary Reason for Your Visit: Diverticulitis, diarrhea. Sinus bradycardia, syncope Attending Provider: César Kang Primary Care Provider: Emma Harmon Consulting Providers: Saba Park; Candace Herrera; Isela Pascual; Emmanuel Lion; Son Dubose; Ann Cruz; MATTIE MADISON; Veronica Butcher; Sandy Nunes; Juan Manuel Craven; Halle Farnsworth; Huma Badillo; Melodie Barton; Rashel,Irma; Liliane,Power; Juve Ahuja; Robert Sanchez; Rene Faye; Ralph Musa; Ramu Mercado; Lizbeth Patterson; Emma Nicolas; Thelma Ferguson; BhavaniSamecamila; Satraul,Salvatroe; Carlos Parker; Truong Meza NP; Luz Cameron; Delta Mayorga; Ramu Cornelius; Shaun Ott; Charissa Guerrero; Sun Flores; Nikolas Manuel; Melody Pichadro; Kilo Cornelius; Sheng Yang; Mp Cabezas; Wolf Leon; Adenike Smith; Denny Michele; Marissa Blankenship; Sal Reed; Kelsi Cota; Dario Guaman Discharge Orders/Prescriptions Prescriptions: New cyanocobalamin (vitamin B-12) 1,000 mcg tablet 1,000 mcg PO BREAKFAST 30 Days Qty: 30 0RF L.acidoph,saliva-B.bif-S.therm 175 mg Capsule 1 cap PO TID Qty: 0 0RF Rx Instructions: Jojk-dgr-wjhkpxv for 2 weeks venlafaxine [Effexor XR] 75 mg capsule,extended release 24hr 75 mg PO DAILY 30 Days Qty: 30 0RF amoxicillin-pot clavulanate 875-125 mg tablet 1 tab PO BID 8 Days Qty: 16 0RF Continued metformin 1,000 MG tablet,ER jane.retention 24 hr 1,000 mg PO DAILY Patient Comments: diabetes levetiracetam 500 mg tablet 500 mg PO BID olanzapine 10 mg tablet 10 mg PO DAILY dicyclomine 20 mg tablet 20 mg PO 4X/DAY PRN PRN (Reason: abdominal pain) losartan 25 mg tablet 25 mg PO DAILY hydroxyzine HCl 25 mg tablet 25 mg PO PRN zolpidem 5 mg tablet 5 mg PO QHS PRN PRN (Reason: insomnia) levothyroxine 112 mcg tablet 112 mcg PO DAILY rosuvastatin 20 mg tablet 20 mg PO QHS ramelteon 8 mg tablet 8 mg PO QHS gabapentin 300 mg capsule 300 mg PO TID cholecalciferol (vitamin D3) 50 mcg (2,000 unit) capsule 100 mcg PO DAILY sennosides [Alfreda-johana] 8.6 mg tablet 17.2 mg PO QHS tizanidine 4 mg tablet 4 mg PO Q8H PRN PRN (Reason: muscle spasm) docusate sodium 100 mg capsule 100 mg PO BID Changed ferrous sulfate 325 mg (65 mg iron) tablet 325 mg PO QODAY 30 Days Qty: 0 0RF Discontinued sertraline 100 mg tablet 150 mg PO QHS Other Ambulatory Orders: 14 Day Event Recorder Preventi (Urgent) Timeframe: 1 Day Facility: [facility] - Location: Cardiovascular Services Ordered By: Dr. Tomasa Beckham Referrals / Follow Up: Emma Harmon DO [Primary Care Provider] - Emma Nicolas MD [Med Staff - Active Staff] - Within 2 Weeks (For recurrent syncope, severe bradycardia) Ronald Mejia MD [Non-Staff -Ordering Privileges] - Within 2 Weeks (Workup for dementia) Salvatore Woodward MD [Med Staff - Active Staff] - Within 1 Month Erin Jennings MD [Med Staff - Active Staff] - Within 1 Month (Sigmoid diverticulitis) Disposition Disposition (needs filled in before D/C Order can be placed): Home Health Service Charges/Coding Visit Charges Inpatient E&M: 50062 Disch Hosp >30min
--- NOTE | 2024-10-15 14:05 | PN.CARD_ITS ---
Subjective Subjective she is resting comfortable in her bed. Telemetry with sinus bradycardia. Objective Data Vital Signs: Vital Signs Temp Pulse Resp BP Pulse Ox O2 Del Method O2 Flow Rate 97.6 F L 51 L 18 152/82 H 95 Room Air 2 10/15/24 12:42 10/15/24 12:42 10/15/24 12:42 10/15/24 12:42 10/15/24 12:42 10/15/24 12:42 10/12/24 03:27 Oxygen Flow Rate (L/min) 2 Oxygen Delivery Method Room Air Weight: 176 lb 2.389 oz Body Mass Index (BMI) 32.2 Intake & Output: Intake and Output for Last 24 Hours 10/13/24 10/14/24 10/15/24 23:59 23:59 23:59 Intake Total 870 / 870 690 / 690 490 / 490 Output Total 350 / 350 Balance 520 / 520 690 / 690 490 / 490 Lab / Micro Data 10/15/24 07:03 10/15/24 07:03 Labs: Laboratory Results - last 24 hr 10/14/24 18:16: POC Glucose 121 H 10/14/24 22:21: POC Glucose 83 10/14/24 23:43: POC Glucose 84 10/15/24 06:13: POC Glucose 84 10/15/24 07:03: WBC 5.6, RBC 4.06 L, Hgb 11.9 L, Hct 35.8 L, MCV 88.2, MCH 29.3, MCHC 33.2, RDW Std Deviation 44.0 H, RDW Coeff of Bobby 13.7, Plt Count 235, MPV 10.8, Immature Gran % (Auto) 0.400, Neut % (Auto) 61.5, Lymph % (Auto) 26.4, [place] % (Auto) 7.5, Eos % (Auto) 3.7, Baso % (Auto) 0.5, Absolute Neuts (auto) 3.5, Absolute Lymphs (auto) 1.48, Nucleated RBC % 0, Sodium 142, Potassium 3.9, Chloride 110 H, Carbon Dioxide 22.9, Anion Gap 10, BUN 7, Creatinine 0.40 L, Estim Creat Clear Calc 148.27, Est GFR (MDRD) Non-Af 114, BUN/Creatinine Ratio 18.5, Glucose 81, Calcium 8.5 Rhythm Strip Rhythm Strip: Sinus bradycardia Rate: 45 Ectopy: None Cardiology Labs/Tests 10/15/24 07:03: WBC 5.6, RBC 4.06 L, Hgb 11.9 L, Hct 35.8 L, MCV 88.2, MCH 29.3, MCHC 33.2, Plt Count 235, MPV 10.8, Immature Gran % (Auto) 0.400, Neut % (Auto) 61.5, Lymph % (Auto) 26.4, [place] % (Auto) 7.5, Eos % (Auto) 3.7, Baso % (Auto) 0.5, Absolute Neuts (auto) 3.5, Nucleated RBC % 0, Sodium 142, Potassium 3.9, C hloride 110 H, Carbon Dioxide 22.9, Anion Gap 10, BUN 7, Creatinine 0.40 L, Est GFR (MDRD) Non-Af 114, BUN/Creatinine Ratio 18.5, Glucose 81, Calcium 8.5 Rhythm: sinus bradycardia Stress Test Report Exercise myocardial perfusion stress test. [59]-year-old [female] with a history of hypertension, dyslipidemia, neurodegenerative disease, depression, anxiety, seizure disorder who is presenting with recurrent syncopal events and underlying prominent sinus bradycardia without any AV blocking agents]. Stress protocol: Resting EKG demonstrates [sinus bradycardia with normal OH intervals and normal QRS heart rate 46 bpm resting blood pressure is [136/78] mmHg. The patient exercised according to the modified regular Sachin protocol for a total duration of [7 minutes and 33 seconds] attaining a maximum heart rate of [90] bpm which was [55]% of maximum predicted heart rate; the maximum workload was [4.6] metabolic equivalents. At rest there were no ST or T wave changes noted to suggest ischemia and at peak exercise upsloping ST changes only were noted which did not meet the criteria for ischemia. However the test was submaximal for which it was converted to pharmacological stress test utilizing Lexiscan infusion according to the protocol with resting heart rate 46 that que to a maximum of 76 bpm and blood pressure remained relatively stable 112/78 mmHg. No signs or symptoms of reaction to the Lexiscan was noted. Myocardial perfusion protocol. [ 11.8] mCi of technetium 99m sestamibi was injected at rest. And after Lexiscan infusion, stress dose 36 mCi of technetium 99m sestamibi was injected stress images were obtained stress and rest images were reconstructed in comparing the short axis vertical long and horizontal long axis. Gated images were also obtained. Perfusion SPECT analysis: Review of the stress images demonstrate normal uptake of tracer noted in all areas of the myocardium. The resting images similarly demonstrate normal uptake of tracer noted in all areas of the myocardium. No areas of reversibility are noted to suggest ischemia no previous infarct was noted. Gated SPECT analysis: The gated ejection fraction is [75 ]%. Conclusion: #1 submaximal exercise myocardial perfusion stress test due to blunted heart rate response to exercise for which the test was converted to pharmacological stress test, peak heart rate achieved less than 55% of target heart rate .#2 normal caffeine imaging without definitive evidence of ischemia or infarction #3 normal left nuclear size and function with calculated LVEF 75% ECHO: normal EF Physical Exam Const alert HEENT normocephalic Neck full ROM Chest inspection of chest normal Cardio regular rate Rhythm: regular rhythm Back/Spine no CVA tenderness Extremity normal to inspection Assessment & Plan Assessment/Plan (1) Bradycardia, sinus: PLAN: Concerning as she has symptomatic blunted heart rate response to activity and her current sinus bradycardia is obvious on the monitor without definitive pauses but heart rate in the 30s and 40s frequently recorded. Her exercise stress test demonstrated submaximal heart rate response to exercise and likely playing a partial role in her overall declining functional capacity superimposed on her neurodegenerative disease. Lyme titer is pending. Euthyroid. Not on any medications that would explain her prominent sinus bradycardia. Suspect above related to conduction system disease that may have some correlation with her underlying neurodegenerative disease. We discussed with the family the possibility of a permanent pacemaker implantation in the form of AAIR, but conduction system/EP study would be warranted before such an implantation. I doubt the syncope is completely related to sick sinus syndrome considering her underlying neurodegenerative changes/behavioral changes and abnormal MRI. Based on the MRI results and the significant volume loss, I do suspect some chronicity to the above especially after talking to her family with high likelihood of a neurodegenerative disorder playing a role in the majority of her recent multiple ER clinical presentation, near syncope. She is currently back to baseline according to the family but is involved in taking care of her disabled son. We discussed in length the need for further psychosocial support and a formal neurology evaluation especially if anticholinergic medications will be utilized which may result in some more further bradycardia. Also assessing the social and home situation would be important prior to discharge planning.
== END 2024-10-15 15:17 | disposition home health service (06) | DRG 309 ==
LOC: ED 18:34 → PCU 20:16
PROVIDERS: Internal Medicine Cardiovascular Disease; Admitting Provider Internal Medicine; Emergency Provider Emergency Medicine; PCP Student in an Organized Health Care Education/Training Program; Visit Provider Internal Medicine
DX: R00.1 Bradycardia, unspecified (principal); K57.32 Diverticulitis of large intestine without perforation or abscess without bleeding; K86.2 Cyst of pancreas; E11.40 Type 2 diabetes mellitus with diabetic neuropathy, unspecified; D50.9 Iron deficiency anemia, unspecified; E03.9 Hypothyroidism, unspecified; E66.811 Obesity, class 1; G40.909 Epilepsy, unspecified, not intractable, without status epilepticus; K76.0 Fatty (change of) liver, not elsewhere classified; I10 Essential (primary) hypertension; I34.0 Nonrheumatic mitral (valve) insufficiency; F32.A Depression, unspecified; G31.9 Degenerative disease of nervous system, unspecified; I49.5 Sick sinus syndrome; F03.90 Unspecified dementia, unspecified severity, without behavioral disturbance, psychotic disturbance, mood disturbance, and anxiety; E87.6 Hypokalemia; F41.9 Anxiety disorder, unspecified; E78.5 Hyperlipidemia, unspecified; Z68.32 Body mass index [BMI] 32.0-32.9, adult; R07.9 Chest pain, unspecified; R55 Syncope and collapse; Z79.890 Hormone replacement therapy; Z79.899 Other long term (current) drug therapy; Z98.84 Bariatric surgery status; Z98.1 Arthrodesis status
CPT/HCPCS: 36415; 70450; 70551; 71046; 74177; 78452; 80048; 80053; 80076; 81001; 82607; 82962; 83036; 83690; 83735; 83880; 84100; 84439; 84443; 84481; 84484; 85025; 86618; 87177; 87209; 87329; 87493; 87506; 93005; 93017; 93306; 95819; 97802; 99285; A9500; Q9967; A4216; J2405; J2785

== ENCOUNTER → 2024-12-28 | Outpatient (CLI) | payer MEDICARE, OTHER, SELFPAY ==
--- NOTE | 2024-12-28 09:02 | RAD_ITS ---
PROCEDURE: RAD/Chest PA and Lateral
[2024-12-28 09:18] LABS: Red Blood Cells-Urine 0 SEEN /hpf (0-5)
[2024-12-28 10:06] LABS: Color, Urine Yellow (Yellow); Glucose, Dipstick Normal (Normal); Ketone-Dipstick Negative (Negative); Leukocyte Esterase-Dipstick 100 /ul (Negative); Nitrite-Dipstick Negative (Negative); Occult Blood-Urine Negative /ul (Negative); Protein-Dipstick 15 mg/dl (Negative); Specific Gravity, Urine 1.015 (1.002-1.030); Urine Bilirubin Dipstick Negative (Negative)
[2024-12-28 10:07] LABS: Hematocrit 41.6 % (37-47); Hemoglobin 14.0 g/dL (12.0-15.0); Mean Corp Hgb Conc 33.7 g/dL (32-36); Mean Corpuscular Volume 88.9 fL (81-99); Mean Platelet Vol. 10.2 fl (6.2-12.0); Platelet Count 280 K/mm3 (150-450); RBC Distribution Width CV 13.2 % (11.6-14.6); RBC Distribution Width SD 42.8 fl (35.1-43.9); Red Blood Count 4.68 M/mm3 (4.2-5.4); White Blood Count 5.8 K/mm3 (4.4-11.0)
[2024-12-28 10:14] LABS: Prothrombin Time (Protime)PT. 13.6 SECONDS (11.7-14.9)
[2024-12-28 10:15] LABS: Calcium Oxalate Crystals Ur 1+ /hpf (<or=2+); Mucous, Urine 1+ /hpf (<or=2+); Squamous Epithelial Cells - UA 0-5 SEEN /hpf (5-10)
[2024-12-28 10:40] LABS: Anion Gap 12 (5-15); BUN 11 mg/dL (4-19); BUN/Creat Ratio 20.6 RATIO (10-20); Calcium,Total 9.4 mg/dL (7.6-11.0); Carbon Dioxide 23.3 mmol/L (21.0-32.0); Chloride 107 mmol/L (98-108); Glucose 95 mg/dL (70-99); Potassium 4.0 mmol/L (3.3-5.1)
== END | disposition home or self-care (01) ==
LOC: RAD 09:00
PROVIDERS: PCP Student in an Organized Health Care Education/Training Program; Referring Provider Internal Medicine Clinical Cardiac Electrophysiology; Visit Provider Internal Medicine Clinical Cardiac Electrophysiology
DX: I49.5 Sick sinus syndrome (principal)
CPT/HCPCS: 36415; 71046; 80048; 81001; 85027; 85610

== ENCOUNTER 2025-01-05 11:24 | Observation (INO) | payer MEDICARE, OTHER, SELFPAY ==
[2025-01-04 10:55] VITALS: BMI 29.9
[2025-01-05] VITALS (10 sets, daily range): BP systolic 131–171; BP diastolic 70–100; PULSE 60–71; RESP 15–18; TEMP 36.7–36.9; O2SAT 92–96
--- NOTE | 2025-01-05 11:40 | EX.PACEMAKER ---
Pacemaker Procedure Note Pacemaker Procedure Note Procedure: Successful dual-chamber permanent pacemaker implantation Indication: Symptomatic bradycardia due to sinus node dysfunction Findings: The patient was brought to the EP LAB in the fasting well-hydrated state and prepped and draped in the usual sterile fashion. Local anesthesia with 2% lidocaine was used to achieve a numbing effect in the left pectoral region. In addition, conscious sedation with iv versed/morphine was administered. I was present with the patient for the duration of moderate sedation and supervised staff who had no other duties and monitored the patient for the entire procedure. Details of monitoring are stored in laboratory flow sheet. An incision was made 2 fingerbreadths below the left clavicle and a pocket was made by blunt dissection. Bleeding vessels were coagulated using electrocautery. Using modified Seldinger technique, two guidewires was placed into the left axillary vein down to the low RA. An introducer sheath was placed into the central circulation. An active fixation ventricular pacemaker lead was placed within the central circulation and positioned within the right ventricular apical septum. The active screw mechanism was deployed and the lead was attached to the myocardium. Adequate pacing sensing thresholds were measured and diaphragmatic stimulation was excluded with high output pacing. The introducer sheath was peeled away. Next using the second guidewire a introducer sheath was placed into the central circulation. Through the venous sheath an active-fixation right atrial lead was passed in the right atrium. The active screw mechanism was deployed and the lead was attached to the myocardium. Adequate pacing sensing thresholds were measured and diaphragmatic stimulation was excluded with high output pacing. The introducer sheath was peeled away. The leads were secured in the pocket using 0-Ethibond with initial suture tie made to the pectoralis muscle and fascia, followed by wrapping around and tying securely to the lead sleeves. In addition, a purse string suture was tied around the leads entry site with 2-0 Vicryl for hemostasis. The leads were connected to the dual chamber pacemaker pulse generator. The pocket was irrigated with antibiotic solution. The pulse generator was placed into the pocket with redundant lead allowed to form a rolando coil behind the pulse generator. The device header was secured in place with a leash using a nonabsorbable suture. The pocket was closed in 2 layers with 2-0 and 3-0 Vicryl for the subcutaneous and subcuticular layers respectively. Hemostasis was achieved with manual pressure. Upon closure no bleeding was noted. A sterile dressing was applied. The patient was recovered and sent to their room in stable condition. Complications: none. Specimens: none. Implanted Product Information Implant Date Survey Technologist Model Name Francisco. Model Serial No. Location 01/05/2025 [employer] L131: ESSENTIO MRI DR MEIER1 () [id number] - Subcutaneous 01/05/2025 [employer] 7841: INGEVITY+ IS-1 Bi Positive Fix RA/RV 52cm Bi [id number] RV 01/05/2025 [employer] 7840: INGEVITY+ IS-1 Bi Positive Fix RA/RV 45cm Bi [id number] RA Measured Data PSA Measurements Lead Intrinsic Threshold Imp. RA 2.9 mV 0.9V @ 0.5ms 475 ? RV 12.3 mV 1.0V @ 0.5ms 1058 ? Programmed Parameters Mode: DDD RYTHMIQ: OFF LRL / MTR : 60 ppm / 130 ppm PAV Delay: 250ms - 250ms PARUL Delay: 200ms - 200ms PVARP: 230ms - 280ms Sensitivity Output Pace/Sense RA 0.75 mV 3.5V @ 0.4ms Bi RV 2.5 mV 3.5V @ 0.4ms Bi
[2025-01-05] MEDS: HYDROcodone Bitartrate/Apap 5/325 Tablet PO ×2 (13:07→19:18)
--- NOTE | 2025-01-05 14:10 | RAD_ITS ---
PROCEDURE: CHEST 1 VIEW (PORTABLE) 01/05/2025 REASON FOR EXAM: DO WITHIN 2-4 HOURS OF PROCEDURE TECHNIQUE: Frontal view of the chest. COMPARISON: December 28, 2024. FINDINGS: Hardware: A left-sided dual-chamber pacemaker is seen. The leads are in good position. Heart: The heart size is normal. Lungs: The lungs are clear. Bones: Degenerative changes are identified within the thoracic spine. Prior fusion in the lower cervical spine. RAD/Chest 1 View (Portable) IMPRESSION: Status post left dual-chamber pacemaker placement. The lungs are clear. No evidence of pneumothorax. Reading Location: [facility]
[2025-01-05] MEDS: Lactobacillis Acidophilus 1 CAP PO ×2 (15:18→19:56)
[2025-01-06 02:00] VITALS: PULSE 61
[2025-01-06] MEDS: HYDROcodone Bitartrate/Apap 5/325 Tablet PO ×2 (02:54→09:31)
[2025-01-06 03:41] VITALS: BMI 30.8
[2025-01-06 04:00] VITALS: BP 136/84; PULSE 60; RESP 15; TEMP 36.4; O2SAT 93
--- NOTE | 2025-01-06 05:00 | RAD_ITS ---
PROCEDURE: CHEST 3 VIEW 01/06/2025 REASON FOR EXAM: POST PERMANENT ICD/PACEMAKER TECHNIQUE: Procedure Code: RADCXRPALATOB Modality: DX Procedure: CHEST 3 VIEW COMPARISON: 01/05/2025. FINDINGS: AICD is in good position. Unremarkable lower cervical fusion metallic hardware. The lungs are expanded. There is no demonstrated parenchymal abnormality. There is no demonstrated pleural abnormality. Enlarged cardiac silhouette. Normal mediastinum and josep. Normal visualized pulmonary arteries. Atheromatous plaques of the visualized aortic arch and descending thoracic aorta. Diffuse spondylosis of the visualized thoracic spine. Normal visualized ribs, clavicles. Degenerative joint disease. There is no demonstrated abnormality of the visualized soft tissue structures of the upper abdomen. RAD/Chest 3 View IMPRESSION: No evidence for acute abnormality. Reading [facility]
[2025-01-06] MEDS: Lactobacillis Acidophilus 1 CAP PO (05:43)
--- NOTE | 2025-01-06 07:51 | DCINST_ITS ---
Discharge Instructions DC O2, CPAP, BIPAP needs Home O2 Discharge instructions: No Dressing / Incision Discharge Activity: May Drive, May Shower, May Take a Tub Bath and - (leave dressing in place until follow up) May resume sexual activity in: No Restrictions Weight Bearing Status: Weight bearing as tolerated Dressing / Incision Call your doctor if your incision/area has: Continuous Slow Oozing, Increased Redness and Swelling at the incision site Call your doctor if you observe: Fever of 101 or Higher Change Dressing in: leave in place till F/U Follow Up Care Test Results: Test results from this visit will be discussed in further detail at your follow- up appointment, if applicable. Discharge Plan Admission Admit Date/Time: 01/05/25 11:24 Primary Reason for Your Visit: bradycardia Attending Provider: Salvatore Woodward Primary Care Provider: Ruslan Gutierrez Discharge Orders/Prescriptions Prescriptions: Continued metformin 1,000 MG tablet,ER jane.retention 24 hr 1,000 mg PO DAILY Patient Comments: diabetes levetiracetam 500 mg tablet 500 mg PO BID olanzapine 10 mg tablet 10 mg PO DAILY dicyclomine 20 mg tablet 20 mg PO 4X/DAY PRN PRN (Reason: abdominal pain) losartan 25 mg tablet 25 mg PO DAILY hydroxyzine HCl 25 mg tablet 25 mg PO PRN zolpidem 5 mg tablet 5 mg PO QHS PRN PRN (Reason: insomnia) levothyroxine 112 mcg tablet 112 mcg PO DAILY rosuvastatin 20 mg tablet 20 mg PO QHS ramelteon 8 mg tablet 8 mg PO QHS gabapentin 300 mg capsule 300 mg PO TID cholecalciferol (vitamin D3) 50 mcg (2,000 unit) capsule 100 mcg PO DAILY sennosides [Alfreda-johana] 8.6 mg tablet 17.2 mg PO QHS tizanidine 4 mg tablet 4 mg PO Q8H PRN PRN (Reason: muscle spasm) docusate sodium 100 mg capsule 100 mg PO BID cyanocobalamin (vitamin B-12) 1,000 mcg tablet 1,000 mcg PO BREAKFAST 30 Days Qty: 30 0RF L.acidoph,saliva-B.bif-S.therm 175 mg Capsule 1 cap PO TID Qty: 0 0RF Rx Instructions: Isac-odw-quzrrfs for 2 weeks venlafaxine [Effexor XR] 75 mg capsule,extended release 24hr 75 mg PO DAILY 30 Days Qty: 30 0RF ferrous sulfate 325 mg (65 mg iron) tablet 325 mg PO QODAY 30 Days Qty: 0 0RF Referrals / Follow Up: Ruslan Gutierrez DO [Primary Care Provider, [facility]] Disposition Disposition (needs filled in before D/C Order can be placed): Home, Self Care
[2025-01-06] MEDS: Cholecalciferol (VIT D3) 25 MCG TABLET (1,000 UNITS) 100 MCG PO (08:54)
[2025-01-06] MEDS: metFORMIN (XR) 500 MG Tablet 1000 MG PO (08:55)
[2025-01-06 09:24] VITALS: BP 136/84; PULSE 60; RESP 15; TEMP 36.4; O2SAT 93
--- NOTE | 2025-01-06 09:49 | PHA.DC.MR.R ---
Pharmacy [place] Med Reconciliation Pharmacy Service has performed discharge medication reconciliation for this patient. The patient's discharge medication list was reviewed for discrepancies and discrepancies were resolved. Medications at Discharge Home Medications metformin 1,000 mg 24 hr tablet,extended release (gastric reten.) 1,000 mg PO DAILY diabetes 10/08/15 dicyclomine 20 mg tablet 20 mg PO 4X/DAY PRN PRN abdominal pain 06/05/24 hydroxyzine HCl 25 mg tablet 25 mg PO PRN itching 06/05/24 levetiracetam 500 mg tablet 500 mg PO BID seizures 06/05/24 levothyroxine 112 mcg tablet 112 mcg PO DAILY thyroid 06/05/24 losartan 25 mg tablet 25 mg PO DAILY blood pressure 06/05/24 olanzapine 10 mg tablet 10 mg PO DAILY mental health 06/05/24 ramelteon 8 mg tablet 8 mg PO QHS sleep 06/05/24 rosuvastatin 20 mg tablet 20 mg PO QHS cholesterol 06/05/24 zolpidem 5 mg tablet 5 mg PO QHS PRN PRN insomnia 06/05/24 gabapentin 300 mg capsule 300 mg PO TID nerve pain 08/17/24 cholecalciferol (vitamin D3) 50 mcg (2,000 unit) capsule 100 mcg PO DAILY vitamin 10/11/24 docusate sodium 100 mg capsule 100 mg PO BID stool softner 10/11/24 sennosides 8.6 mg tablet (Alfreda-johana) 17.2 mg PO QHS constipation 10/11/24 tizanidine 4 mg tablet 4 mg PO Q8H PRN PRN muscle spasm 10/11/24 L.acidophil,salivari-Bifido bifidum-Strep thermoph 175 mg capsule 1 cap PO TID #0 caps 10/15/24 cyanocobalamin (vitamin B-12) 1,000 mcg tablet 1,000 mcg PO BREAKFAST 30 days #30 tabs 10/15/24 ferrous sulfate 325 mg (65 mg iron) tablet 325 mg PO QODAY supplement 30 days #0 tabs 10/15/24 venlafaxine 75 mg capsule,extended release 24 hr (Effexor XR) 75 mg PO DAILY 1 month #30 caps 10/15/24
--- NOTE | 2025-01-06 10:04 | CASEMGMT ---
Patient has order for discharge. RN CM in to discuss needs at discharge, family at bedside. Patient denies needs or help at discharge. Patient had no further questions or concerns.
== END 2025-01-06 10:43 | disposition home or self-care (01) ==
LOC: PCU 11:53
PROVIDERS: Admitting Provider Internal Medicine Clinical Cardiac Electrophysiology; PCP Student in an Organized Health Care Education/Training Program; Referring Provider Internal Medicine Clinical Cardiac Electrophysiology; Visit Provider Internal Medicine Clinical Cardiac Electrophysiology
DX: Z45.018 Encounter for adjustment and management of other part of cardiac pacemaker (principal); I49.5 Sick sinus syndrome; E11.9 Type 2 diabetes mellitus without complications; R55 Syncope and collapse; I10 Essential (primary) hypertension; Z98.84 Bariatric surgery status; Z79.84 Long term (current) use of oral hypoglycemic drugs; Z79.899 Other long term (current) drug therapy
CPT/HCPCS: 33208; 71045; 71047; 93005; 99152; 99153; 99221; G0378